=== PATIENT | male | born 1945 | race Caucasian/White ===

== ENCOUNTER → 2023-04-22 13:59 | Outpatient (REF) | payer MEDICARE, OTHER, SELFPAY | LOC: HWRAD 13:59 | PROVIDERS: ATTENDING PHYSICIAN Student in an Organized Health Care Education/Training Program | DX: R79.89 Other specified abnormal findings of blood chemistry (principal) | CPT/HCPCS: 76700 ==

== ENCOUNTER → 2023-04-28 16:11 | Outpatient (REF) | payer MEDICARE, OTHER, SELFPAY | LOC: PAVMRI 16:11 | PROVIDERS: ATTENDING PHYSICIAN Student in an Organized Health Care Education/Training Program | DX: R29.898 Other symptoms and signs involving the musculoskeletal system (principal) | CPT/HCPCS: 72148 ==

== ENCOUNTER 2023-05-05 11:26 | Outpatient (RCR) | payer MEDICARE, OTHER, SELFPAY | END 2023-05-05 23:59 | disposition home or self-care (01) | LOC: RPT 11:26 | PROVIDERS: ATTENDING PHYSICIAN Physician Assistant; FAMILY PHYSICIAN Student in an Organized Health Care Education/Training Program | DX: I89.0 Lymphedema, not elsewhere classified (principal); Z73.6 Limitation of activities due to disability | CPT/HCPCS: 97163; 97535 ==

== ENCOUNTER → 2023-05-14 16:07 | Outpatient (REF) | payer MEDICARE, OTHER, SELFPAY ==
[2023-05-14 16:56] LABS: ALT (SGPT) 214 U/L (0-50); AST (SGOT) 254 U/L (17-59); Albumin 3.1 g/dl (3.5-5.0); Alkaline Phosphatase 81 U/L (38-126); Blood Urea Nitrogen 20 mg/dl (9-20); Calcium 9.1 mg/dl (8.4-10.2); Carbon Dioxide 30 mmol/L (22-30); Chloride 100 mmol/L (98-107); Glucose 99 mg/dl (70-99); Potassium 4.1 mmol/L (3.5-5.1); Sodium 136 mmol/L (135-145); Total Bilirubin 0.8 mg/dl (0.2-1.3); Total Protein 6.3 g/dl (6.3-8.2); eGFR > 60.00
[2023-05-14 17:25] LABS: Hepatitis A IgM Antibody Negative (Negative)
[2023-05-14 17:26] LABS: Hepatitis B Surface Antigen Negative (Negative)
[2023-05-14 17:44] LABS: Hepatitis B Core Ab, Total Negative (Negative); Hepatitis C Antibody Negative (Negative)
[2023-05-18 01:46] LABS: Myeloperoxidase Antibody 1 AU/mL (0-19); Serine Protease-3, IgG 2 AU/mL (0-19)
== END ==
LOC: RAD 16:07
PROVIDERS: ATTENDING PHYSICIAN Orthopaedic Surgery Orthopaedic Surgery of the Spine; FAMILY PHYSICIAN Student in an Organized Health Care Education/Training Program
DX: M54.16 Radiculopathy, lumbar region (principal); R79.89 Other specified abnormal findings of blood chemistry
CPT/HCPCS: 36415; 72131; 80053; 82728; 83516; 86704; 86709; 86803; 87340

== ENCOUNTER 2023-05-25 13:59 | Outpatient (RCR) | payer MEDICARE, OTHER, SELFPAY | END 2023-05-25 23:59 | disposition home or self-care (01) | LOC: RPT 13:59 | PROVIDERS: ATTENDING PHYSICIAN Physician Assistant; FAMILY PHYSICIAN Student in an Organized Health Care Education/Training Program | DX: I89.0 Lymphedema, not elsewhere classified (principal); Z73.6 Limitation of activities due to disability; R26.2 Difficulty in walking, not elsewhere classified | CPT/HCPCS: 97140; 97535 ==

== ENCOUNTER → 2023-05-27 18:11 | Outpatient (REF) | payer MEDICARE, OTHER, SELFPAY | LOC: MRI 18:11 | PROVIDERS: ATTENDING PHYSICIAN Student in an Organized Health Care Education/Training Program | DX: K80.50 Calculus of bile duct without cholangitis or cholecystitis without obstruction (principal) | CPT/HCPCS: 74183; A9575 ==

== ENCOUNTER 2023-06-11 13:51 | Outpatient (RCR) | payer MEDICARE, OTHER, SELFPAY | END 2023-06-11 23:59 | disposition home or self-care (01) | LOC: RPT 13:51 | PROVIDERS: ATTENDING PHYSICIAN Student in an Organized Health Care Education/Training Program | DX: R29.898 Other symptoms and signs involving the musculoskeletal system (principal); E63.1 Imbalance of constituents of food intake; Z73.6 Limitation of activities due to disability; M54.50 Low back pain, unspecified; M62.81 Muscle weakness (generalized); I89.0 Lymphedema, not elsewhere classified | CPT/HCPCS: 97116; 97162 ==

== ENCOUNTER 2023-06-30 13:09 | Outpatient (RCR) | payer MEDICARE, OTHER, SELFPAY | END 2023-07-06 12:19 | disposition home or self-care (01) | LOC: RPT 13:09 | PROVIDERS: ATTENDING PHYSICIAN Student in an Organized Health Care Education/Training Program | DX: R29.898 Other symptoms and signs involving the musculoskeletal system (principal); E63.1 Imbalance of constituents of food intake; Z73.6 Limitation of activities due to disability; M54.50 Low back pain, unspecified; I89.0 Lymphedema, not elsewhere classified; R26.89 Other abnormalities of gait and mobility; Z91.81 History of falling | CPT/HCPCS: 97110 ==

== ENCOUNTER → 2023-06-30 16:29 | Outpatient (REF) | payer MEDICARE, OTHER, SELFPAY | LOC: MRI 16:29 | PROVIDERS: ATTENDING PHYSICIAN Student in an Organized Health Care Education/Training Program | DX: I89.0 Lymphedema, not elsewhere classified (principal) | CPT/HCPCS: 72197; A9575 ==

== ENCOUNTER 2023-07-01 18:03 | Inpatient (IN) | payer MEDICARE, OTHER, SELFPAY ==
[2023-07-01 13:16] VITALS: BP 149/89
[2023-07-01 16:40] VITALS: BP 164/82
[2023-07-01 16:49] LABS: % Basophils 0.6 % (0-2); % Eosinophils 1.5 % (0-6); % Immature Granulocytes 0.3 % (0-0.5); % Lymphocytes 20.3 % (20.5-51.1); % Monocytes 7.6 % (1.7-9.3); % Neutrophils 69.7 % (42.2-75.2); Absolute Basophils 0.1 10^3/uL (0-0.2); Absolute Eosinophils 0.2 10^3/uL (0-0.7); Absolute Monocytes 0.7 10^3/uL (0.1-0.6); Absolute Neutrophils 6.8 10^3/uL (1.4-6.5); Hematocrit 42.5 % (39.0-52.0); Hemoglobin 14.3 g/dL (13.0-18.0); Mean Corp Hgb Conc. 33.6 g/dL (33.0-37.0); Mean Corpuscular Hgb 33.3 pg (27.0-31.0); Mean Corpuscular Volume 98.8 fL (80.0-94.0); Mean Platelet Volume 9.8 fL (7.4-10.4); Nucleated Red Blood Cells % 0 % (-); Platelet Count 245 10^3/uL (130-400); Red Cell Dist. Width 14.5 % (11.5-14.5); White Blood Cell Count 9.7 10^3/uL (4.8-10.8)
[2023-07-01 16:58] LABS: INR 1.08
[2023-07-01 16:59] LABS: APTT 29.1 Sec (23.4-35.0)
[2023-07-01 17:04] LABS: ALT (SGPT) 194 U/L (0-50); AST (SGOT) 303 U/L (17-59); Albumin 3.5 g/dl (3.5-5.0); Alkaline Phosphatase 97 U/L (38-126); Blood Urea Nitrogen 20 mg/dl (9-20); Calcium 9.2 mg/dl (8.4-10.2); Carbon Dioxide 27 mmol/L (22-30); Chloride 98 mmol/L (98-107); Glucose 125 mg/dl (70-99); Potassium 4.3 mmol/L (3.5-5.1); Sodium 133 mmol/L (135-145); Total Bilirubin 0.8 mg/dl (0.2-1.3); Total Protein 6.3 g/dl (6.3-8.2); eGFR > 60.00
--- NOTE | 2023-07-01 17:09 | ED.GENMED ---
History of Present Illness
General
Chief Complaint: Musculo-Skeletal Complaint
Source: patient, records and spouse
Exam Limitations: none
Time Seen by Provider: 07/01/23 16:05
Nursing documentation reviewed up to this point in time: agreed with
Travel History
Have you had any contact with someone who has COVID-19?: No
Do you have any symptoms of coronavirus? Fever > 100 degrees, chills, cough, shortness of breath, sore throat, loss of taste or smell, muscle aches, or headache?: No
History of Present Illness
History of Present Illness:
77-year-old male with past medical history of hypertension, hyperlipidemia, CAD, CKD who presents to the emergency room accompanied by his sent in after outpatient MRI showed femur fracture. Patient has been reportedly undergoing outpatient
workup for left leg swelling over the past 2 to 3 months. Workup has included vascular ultrasounds of the IVC and left lower extremity to rule out DVT�these were performed in March shortly after onset. He has been using conservative treatment
such as compression stockings and elevation without significant improvement in the swelling and ultimately was referred for a pelvic MRI to further workup this left leg swelling. MRI was done yesterday and patient received a call today that it was
positive for a left hip fracture and was referred to the emergency room for orthopedic consultation by his primary doctor. He has had some mild pain in the low back and slightly in left hip but it sounds like this is more of a chronic issue. He
denies any specific fall onto his left hip but says that he has had numerous mechanical falls over the past 6 months�mostly while doing chores including carrying tools up the steps, working on the roof, doing yard work. He denies being on any blood
thinners aside from a baby aspirin. Last meal was about an hour prior to arrival.
Past History
Past History
ED Past Medical History: GERD, HTN and Hypercholesterolemia
ED Past Surgical History: Other (Hernia, cataract surgery)
Social History
Tobacco: Non-smoker
Alcohol: None
Drug: None
Personal:
Living: with family
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
Family History
Family History: Early CAD
Review of Systems
Review of Systems
All Other Systems: ROS reviewed and negative except as documented in HPI and ROS
Constitutional: Denies fever or chills
Respiratory: Denies cough or trouble breathing
Cardiac: Denies chest pain or palpitations
ABD/GI: Denies abdominal pain, nausea or vomiting
: Denies flank pain
Musculoskeletal: Reports joint pain (Left hip pain), edema and back pain; Denies neck pain
Neurological: Denies headache, weakness or numbness
Phy Exam
Physical Exam
Physical Exam:
General: Awake, alert, oriented x3; no acute distress
Head: Normocephalic, atraumatic
Eyes: Conjunctiva normal, EOMI
Throat: Airway intact, handling secretions
Neck: Trachea midline, supple without meningismus
Lungs: Breathing comfortably no distress
Heart: Regular rate
Abd: Soft, non distended, nontender
Neuro: Cranial nerves grossly intact, speech fluid
Skin: no rash
Extremities: Patient has significant +3 edema in the entire left lower extremity from inguinal crease down to the left foot; he has some pain with range of motion of the left hip including internal and external rotation; he has faint but palpable
left DP pulse; only trace edema in the right lower extremity, rest of extremities are atraumatic, warm and well-perfused
Scores
Heart Failure Risk
Heart Failure Risk Score: Not Applicable
Heart Score for Chest Pain Patients
STEMI patient?: Not applicable
Withdrawal Assessment of Alcohol
Withdrawal Assessment Completed?: Not applicable
Course
Orders/Labs/Results
Orders:
Orders
07/01/23 16:07
ORTHOPEDIC CONSULT Urgent
Consulting Provider: Myriam Bourgeois I.
Was physician already notified: Yes
07/01/23 16:09
Electrocardiogram (*1) Urgent
Reason for Study: PreOp
EKG- Treatment ONCE
07/01/23 16:31
Type+Screen Urgent
Complete Blood Count/With Diff Urgent
Comprehensive Metabolic Panel Urgent
PTT Urgent
Prothrombin Time Urgent
Abnormal Lab Results
07/01/23
16:31
RBC 4.30 L 10^6/uL
(4.70-6.10)
MCV 98.8 H fL
(80.0-94.0)
MCH 33.3 H pg
(27.0-31.0)
Absolute Neuts (auto) 6.8 H 10^3/uL
(1.4-6.5)
Absolute Monos (auto) 0.7 H 10^3/uL
(0.1-0.6)
Lymphocytes % 20.3 L %
(20.5-51.1)
Sodium 133 L mmol/L
(135-145)
Glucose 125 H mg/dl
(70-99)
AST 303 H U/L
(17-59)
ALT 194 H U/L
(0-50)
07/01/23 16:31
07/01/23 16:31
Vital Signs
Initial and Last Documented VS:
Initial Vital Signs
Temp Pulse Resp BP Pulse Ox
36.6 C 76 16 149/89 98
07/01/23 13:16 07/01/23 13:16 07/01/23 13:16 07/01/23 13:16 07/01/23 13:16
Last Documented Vital Signs
Temp Pulse Resp BP Pulse Ox
36.6 C 70 19 164/82 98
07/01/23 13:16 07/01/23 16:40 07/01/23 16:40 07/01/23 16:40 07/01/23 16:40
MDM/Problems Addressed
Differential Diagnosis Includes:
Hip fracture
MDM/Problems Addressed:
77-year-old male presents for evaluation after being found to have left hip fracture on outpatient MRI done as part of workup for leg pain and swelling on the left. He has had multiple falls over the past 6 months but cannot recall specific episode
during which she injured his left hip or leg. Mildly hypertensive but otherwise normal vitals. Exam as above. Plan to check basic screening labs, coags, type and screen. Check screening EKG. Case discussed with orthopedics for consultation.
Will plan to admit to hospitalist for further management pending initial ED assessment.
Labs reviewed: CBC unremarkable, CMP no clinically significant abnormalities�elevated transaminases has been a chronic issue recently. Case discussed with hospitalist for admission.
*Radiology
Radiology exam reviewed: radiology read reviewed (Reviewed radiology report from outpatient MRI from 06/30/2023)
*Pulse Oximetry
Patient hypoxic: no
*Critical Care Note
Total Time (30-74mins, 75-104mins- exclusive of procedures): Not Applicable
Data Reviewed
Source: patient, records and spouse
Patient Management
Discussion with other providers: Hospitalist (Discussed with hospitalist) and Repair Servicer (Discussed with orthopedics)
Escalation/DeEscalation of care consider admission/obs:
Admission indicated
ED Attending Note
-
Portions of this chart may have been created with voice recognition software.� Occasional wrong word or��sound alike� substitutions may have occurred due to the inherent limitations of voice recognition software.
Discharge Plan
Departure
Patient Disposition: Admit
Date of Disposition: 07/01/23
Time of Disposition: 17:19
Admit to doctor: Gonzalo
Presentation/result/management discussed w/ accepting MD/DO: Hospitalist
Discharge Problem:
Closed fracture of left hip, Left leg swelling
Prescriptions:
No Action
aspirin 81 MG tablet,chewable
81 mg PO DAILY Qty: 30 0RF
amlodipine [Norvasc] 5 mg Tablet
5 mg PO HS
escitalopram oxalate [Lexapro] 10 mg Tablet
10 mg PO HS
rosuvastatin [Crestor] 5 mg Tablet
5 mg PO DAILY
pantoprazole 40 MG tablet,delayed release (DR/EC)
40 mg PO DAILY
Referrals:
Geneva James MD [Family Provider] -
Interventions
Interventions:
ED- Fall Risk Assessment Last Done: 07/01/23 16:40
*ED COVID-19 Vaccine History Last Done: 07/01/23 13:16
ED-Musculoskeletal Assessment Last Done: 07/01/23 16:38
Discharge Date and Time
Print Language: ALBANIAN
--- NOTE | 2023-07-01 17:58 | HPS.HSE ---
Family Physician
-
Family Physician: Geneva James MD
Chief Complaint
-
Left leg swelling for months
History of Present Illness
77-year-old male with past medical history of hypertension, hyperlipidemia, CAD, CKD who presents to the emergency room accompanied by his sent in after outpatient MRI showed femur fracture. Patient has been reportedly undergoing outpatient
workup for left leg swelling over the past 2 to 3 months. Workup has included vascular ultrasounds of the IVC and left lower extremity to rule out DVT�these were performed in March shortly after onset. He has been using conservative treatment
such as compression stockings and elevation without significant improvement in the swelling and ultimately was referred for a pelvic MRI to further workup this left leg swelling.
MRI was done yesterday and patient received a call today that it was positive for a left hip fracture and was referred to the emergency room for orthopedic consultation by his primary doctor. He has had some mild pain in the low back and slightly
in left hip but it sounds like this is more of a chronic issue. He denies any specific fall onto his left hip but says that he has had numerous mechanical falls over the past 6 months�mostly while doing chores including carrying tools up the steps,
working on the roof, doing yard work. He denies being on any blood thinners aside from a baby aspirin. Last meal was about an hour prior to arrival.
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
eventually require apparently an MRCP in early July by Dr. Ybarra he has been largely asymptomatic from that aspect. Multiple x-rays preceding the MRI were all negative for fracture. A venous Doppler was also negative for thrombus.
Medical History
Past Medical History
Past Medical History: Reports CVA, HTN and Hypercholesterolemia
Past Surgical History: Reports Other (Hernia surgery)
Additional Past Surgical History:
Hernia surgery
Social History
Tobacco: Non-smoker
Alcohol: None
Drug: None
Personal:
Living: With Family
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
Family History
Family History: Early CAD
Allergies / Home Medications
Allergies reflects when Allergies were last updated in [facility].
Home Medications with original date entered in [facility]
Allergy/Medication List:
Allergies
Allergy/AdvReac Type Severity Reaction Status Date / Time
No Known Allergies Allergy Verified 02/22/23 07:02
Home Medications
aspirin 81 mg chewable tablet 81 mg PO DAILY ##30 06/02/17
amlodipine 5 mg tablet (Norvasc) 5 mg PO HS 09/29/22
escitalopram oxalate 10 mg tablet (Lexapro) 10 mg PO HS 09/29/22
rosuvastatin 5 mg tablet (Crestor) 5 mg PO DAILY 09/29/22
pantoprazole 40 mg tablet,delayed release 40 mg PO DAILY 07/01/23
Review of Systems
-
EENT: Reports See HPI
Respiratory: Reports No Symptoms
Cardiac: Reports See HPI
Abdomen/GI: Reports No Symptoms and See HPI
Musculoskeletal: Reports Edema (Especially left lower extremity)
Endocrine: Reports See HPI
Hematologic/Lymphatic: Reports See HPI
Psych: Reports See HPI
Physical Exam
Vital Signs
Vital Signs
Temp Pulse Resp BP Pulse Ox
97.9 F 70 19 164/82 98
07/01/23 13:16 07/01/23 16:40 07/01/23 16:40 07/01/23 16:40 07/01/23 16:40
Physical Exam
General: Well Developed
HEENT: NormoCephalic
Respiratory: Clear
Cardiac: S1/S2 and Regular Rhythm
GI: Soft, Non Tender and Non Distended
Musculoskeletal: Edema, Left Lower Extremity (3-4+ as compared to the right with some slight erythema over the pretibial)
Neuro: Awake, Alert, Oriented, AO x 3 and No Motor Deficits
Laboratory Results
-
07/01/23 16:31
07/01/23 16:
Laboratory Results
PT 14.0 Sec (11.4-14.6) 07/01/23 16:31
INR 1.08 07/01/23 16:
APTT 29.1 Sec (23.4-35.0) 07/01/23 16:31
Total Bilirubin 0.8 mg/dl (0.2-1.3) 07/01/23 16:
AST 303 U/L (17-59) H 07/01/23 16:
ALT 194 U/L (0-50) H 07/01/23 16:31
Alkaline Phosphatase 97 U/L (38-126) 07/01/23 16:
Data Reviewed
-
Critical Care Time (in minutes): 67
Diagnostic Radiology: Discussed with Physician
MRI: Report Reviewed by me and Discussed with Physician
Impression/Plan
-
IMPRESSION:
This is a 77-year-old male who had ongoing left lower extremity edema that was unexplained heretofore until an MRI of the pelvis was done noting a intertrochanteric fracture of the left hip and he was called in for admission he has had an extensive
workup in the last 2 to 3 months in relation to unexplained left lower extremity edema including MRIs and CT scans abdominal ultrasounds and assessments for DVT all of which essentially proved negative except for an incidental finding of
choledocholelithiasis on an MRI of the abdomen.
MRI Pelvis:
Moderate diffuse subcutaneous edema about the left thigh/groin and left pelvis.
Nondisplaced intertrochanteric fracture of the proximal left femur.
MRI of abdomen
1. CHOLEDOCHOLITHIASIS in the distal common bile duct.
2. Mild biliary dilatation.
3. CHOLELITHIASIS.
4. Moderate diffuse pancreatic atrophy.
5. Small pancreatic cysts measuring up to 6.8 mm in size.
6. Moderate chronic bilateral renal disease.
7. Small hiatal hernia.
8. Mild cardiomegaly.
9. Severe multilevel discogenic degenerative disease in the lumbar spine.
# Left hip intertrochanteric fracture
-Admit to general medical floor
-Will be made n.p.o. after midnight
-Orthopedic consultation in place
-Based on a revised cardiac risk index he grades out at low risk 0.9% chance of major cardiac event on proposed surgery
# Incidental finding of choledocholelithiasis seen on recent workup for his edema
-Will need eventual ERCP early next month
-Explains transaminitis
-Relatively asymptomatic
# Left leg edema
-Present for months and presume in relation to his fracture as no other etiology found
-Workup has included Doppler of IVC/venous Doppler lower extremity without signs of thrombosis
-MRI of the abdomen pelvis
-All workup back in September 2022 with abdomen/pelvic CT/showed no evidence of any pelvic or abdominal thromboses
-History of May-Thurner syndrome?
# Essential hypertension by history
-Continue amlodipine
-May also be contributing to some of his lower extremity edema
# Hyperlipidemia
-Continue on statin
# Prior history of CVA
-Continue on aspirin low-dose
-Postop DVT prophylaxis as per orthopedic service otherwise
# Gastroesophageal reflux disease
-Continue PPI
DVT prophylaxis pharmacologic will be held till postop status and as per orthopedics/venous pumps otherwise
Full CODE STATUS acknowledged by spouse at bedside
[2023-07-01] MEDS: LEXAPRO 10 MG PO (21:19)
[2023-07-01] MEDS: NORVASC 5 MG PO (21:20)
[2023-07-01] MEDS: NSS 1000 IV (21:21)
[2023-07-02 04:01] VITALS: BP 137/64
[2023-07-02 04:05] LABS: Hematocrit 36.3 % (39.0-52.0); Hemoglobin 12.8 g/dL (13.0-18.0); Mean Corp Hgb Conc. 35.3 g/dL (33.0-37.0); Mean Corpuscular Volume 96.5 fL (80.0-94.0); Mean Platelet Volume 9.7 fL (7.4-10.4); Platelet Count 216 10^3/uL (130-400); Red Blood Cell Count 3.76 10^6/uL (4.70-6.10); Red Cell Dist. Width 14.3 % (11.5-14.5); White Blood Cell Count 8.6 10^3/uL (4.8-10.8)
[2023-07-02 04:28] LABS: ALT (SGPT) 185 U/L (0-50); AST (SGOT) 207 U/L (17-59); Albumin 2.6 g/dl (3.5-5.0); Alkaline Phosphatase 81 U/L (38-126); Blood Urea Nitrogen 17 mg/dl (9-20); Calcium 8.6 mg/dl (8.4-10.2); Carbon Dioxide 30 mmol/L (22-30); Chloride 106 mmol/L (98-107); Glucose 96 mg/dl (70-99); Sodium 135 mmol/L (135-145); Total Bilirubin 0.5 mg/dl (0.2-1.3); Total Protein 5.2 g/dl (6.3-8.2); eGFR > 60.00
[2023-07-02 06:59] VITALS: BP 143/80
--- NOTE | 2023-07-02 07:04 | W.PN.HOSP.TC ---
Today's Communication/Plan
-
Awaiting Ortho evaluation for intervention
Keeping NPO
Mechanical DVT prophylaxis only until intervention
DVT prophylaxis defer to orthopedics.
Minimal pain management required at this point
Assessment / Plan
Assessment / Plan
77-year-old male with past medical history of hypertension, hyperlipidemia, CAD, CKD who presents to the emergency room accompanied by his sent in after outpatient MRI showed femur fracture. Patient has been reportedly undergoing outpatient
workup for left leg swelling over the past 2 to 3 months. Workup has included vascular ultrasounds of the IVC and left lower extremity to rule out DVT�these were performed in March shortly after onset. He has been using conservative treatment
such as compression stockings and elevation without significant improvement in the swelling and ultimately was referred for a pelvic MRI to further workup this left leg swelling.
MRI was done yesterday and patient received a call today that it was positive for a left hip fracture and was referred to the emergency room for orthopedic consultation by his primary doctor. He has had some mild pain in the low back and slightly
in left hip but it sounds like this is more of a chronic issue. He denies any specific fall onto his left hip but says that he has had numerous mechanical falls over the past 6 months�mostly while doing chores including carrying tools up the steps,
working on the roof, doing yard work. He denies being on any blood thinners aside from a baby aspirin. Last meal was about an hour prior to arrival.
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
eventually require apparently an ERCP in early July by Dr. Ybarra he has been largely asymptomatic from that aspect. Multiple x-rays preceding the MRI were all negative for fracture. A venous Doppler was also negative for thrombus.
# Left hip intertrochanteric fracture
-Admit to general medical floor
-Will be made n.p.o. after midnight
-Orthopedic consultation in place
-Based on a revised cardiac risk index he grades out at low risk 0.9% chance of major cardiac event on proposed surgery
# Incidental finding of choledocholelithiasis seen on recent workup for his edema
-Will need eventual ERCP early next month
-Explains transaminitis
-Relatively asymptomatic
# Left leg edema
-Present for months and presume in relation to his fracture as no other etiology found
-Workup has included Doppler of IVC/venous Doppler lower extremity without signs of thrombosis
-MRI of the abdomen pelvis
-All workup back in September 2022 with abdomen/pelvic CT/showed no evidence of any pelvic or abdominal thromboses
-History of May-Thurner syndrome?/Patient himself is unaware of any consideration for that diagnosis and unclear if this ever been made and no other criteria to fit
# Essential hypertension by history
-Continue amlodipine
-May also be contributing to some of his lower extremity edema
# Hyperlipidemia
-Continue on statin
# Prior history of CVA
-Continue on aspirin low-dose
-Postop DVT prophylaxis as per orthopedic service otherwise
# Gastroesophageal reflux disease
-Continue PPI
DVT prophylaxis pharmacologic will be held till postop status and as per orthopedics/venous pumps otherwise
Full CODE STATUS acknowledged by spouse at bedside
Anticipated Discharge: 24 - 48 hours
Subjective/Interval History
-
Date of Service: July 02, 2023
Had restless night but not much pain
Objective Data
-
Labs:
Laboratory Results
07/02/23
03:52
WBC 8.6
Hgb 12.8 L
Hct 36.3 L
Plt Count 216
Sodium 135
Potassium 4.0
Chloride 106
Carbon Dioxide 30
BUN 17
Creatinine 0.9
Glucose 96
Calcium 8.6
Total Bilirubin 0.5
AST 207 H
ALT 185 H
Alkaline Phosphatase 81
Vital Signs:
Vital Signs
Temp Pulse Resp BP Pulse Ox
98.0 F 70 18 143/80 96
07/02/23 06:59 07/02/23 06:59 07/02/23 06:59 07/02/23 06:59 07/02/23 06:59
I&O
07/01/23 07/02/23 07/03/23
06:59 06:59 06:59
Intake Total 720 / 720
Output Total 400 / 400
Balance 320 / 320
Review of Systems
-
History Source: Patient
Constitutional: Reports No Symptoms
Respiratory: Reports No Symptoms
Cardiac: Reports No Symptoms
Abdomen/GI: Reports No Symptoms
Musculoskeletal: Reports Edema
Physical Exam
-
General: Well Developed
HEENT: Normocephalic
Respiratory: Clear to Auscultation
Cardiac: Regular Rhythm
GI: Soft and Nontender
Musculoskeletal: Edema, Left Lower Extrem (Marked present for months not much pain referred to groin)
Neuro: Awake, Alert, Oriented and AO x 3
--- NOTE | 2023-07-02 08:29 | W.PN.UPDATE ---
Update Note
Progress Note Update
Full H&P to follow
77-year-old male with subacute hip pain with ambulation with outpatient MRI showing occult intertrochanteric femur fracture referred to the emergency room by his primary care physician.
Physical examination: Skin about the left hip is intact with no erythema edema or ecchymosis. Minimal discomfort with gentle hip range of motion with some report of lateral discomfort. Patient reports pain primarily with ambulation
Imaging: X-rays taken of the left femur show minimal arthrosis of the left femoral acetabular joint. No acute osseous abnormalities
MRI: MRI of the left hip shows on T1 sequencing occult complete intertrochanteric femur fracture
77-year-old male with subacute to chronic pain about the left hip and worsened edema from baseline with advanced imaging showing complete occult intertrochanteric femur fracture
The condition/injury and respective operative and non-operative interventions were reviewed with the patient to include the risks, benefits, rehabilitation, and prognosis for each. We discussed consideration of nonoperative treatment for at least 6
weeks of nonweightbearing versus operative intervention of left hip cephalomedullary nail fixation. The treatment/operative technique, follow-up, rehabilitation, and prognosis were reviewed with the patient. Surgical risks were discussed which
include but not limited to infection, blood loss, CRPS, possible need for further surgeries, damage to local structures, and possible loss of life or limb. After thorough counseling and answering all questions, the patient wished to proceed with
operative intervention of left hip cephalomedullary nail fixation with Dr. Bourgeois scheduled for 03 July 2023. The patient verified understanding of the treatment plan and all questions were answered to satisfaction.
Consent obtained and given to our front desk clerk.
Nonweightbearing to left lower extremity
May have diet today, n.p.o. at midnight 4 OR 03 July 2023.
Patient's contact Goldie Sahu, spouse,
[2023-07-02] MEDS: LOW STRENGTH ASPIRIN 81 MG PO (09:21)
[2023-07-02] MEDS: PROTONIX 40 MG PO (09:21)
[2023-07-02] MEDS: CRESTOR 5 MG PO (09:22)
[2023-07-02 09:31] VITALS: BMI 25.1
--- NOTE | 2023-07-02 11:51 | PTCARENOTE ---
Pt with planned surgery tomorrow. Will be NPO at midnight. Originally ordered Regular diet. Changed to Gluten Free diet due to Gluten allergy. Left lower extremity +3 pitting edema. Pt denying pain right lower extremity +1 pitting edema. Pt voiding
angela into urinal. New bloody appearance at meatus site. Dr. Kim notified.
[2023-07-02 12:45] VITALS: BP 140/70
[2023-07-02 13:04] VITALS: BP 146/65
--- NOTE | 2023-07-02 13:54 | W.PN.UPDATE ---
Update Note
Progress Note Update
pt seen and examined with at bedside
agree with ortho PA note
LLE: moderate to severe edema. negative log roll. Pain with flexion and internal rotation
MRI L hip/pelvis shows nondisplaced intertrocanteric hip fx
Plan: Nonop and operative approaches discussed. Pt agrees with ORIF with gamma nail L hip. We will proceed with surgery tomorrow at 8 am if medically optimized. Risks and benefits fully explained. All questions were answered.
[2023-07-02 14:30] VITALS: BP 155/75
[2023-07-02] MEDS: NSS 1000 IV (14:51)
--- NOTE | 2023-07-02 16:00 | PTCARENOTE ---
pt admitted to room 2102 from the ED at 1300. pt arrived via bed. pt oriented to room, call bed and plan of care with verbalized understanding. pt denies pain or discomfort. assessment as documented. voiding in urinal-urine is blood tinged.
will observe.
--- NOTE | 2023-07-02 16:44 | CON.ORTHO ---
Consultation
-
Date/Time Consultation Requested: 07/01/2023 1607
Date/Time Consultation Performed: 07/02/2023 0800
Requesting Provider: Dr. Tyler Santana
Performing Provider: KIKI Mohan, Dr. Myriam Bourgeois
Reason for Consultation: Left hip fracture
Consultation - Orthopedics
History
77-year-old male presenting to [facility] emergency room for chronic pain and swelling of the left lower extremity ongoing several months. He has been undergoing outpatient workup with his primary care physician who ordered an MRI and include the
left hip which was significant for an occult intertrochanteric femur fracture. Patient was referred to the emergency room for orthopedic evaluation. He does report several falls that may have been relative to the onset of symptoms but is unsure of
any specific injury. He reports pain is primarily with weight-based activity and without paresthesias with pain deep within the groin area. He reports most of his falls have been mechanical in nature and denies any syncopal episodes
Allergies / Home Medications
ED Past Medical History: GERD, HTN, HLP, CKD
ED Past Surgical History: Hernia, cataract surgery
Social History
Tobacco: Non-smoker
Alcohol: None
Drug: None
Personal:
Living: with family
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 Independent activities of daily living without assistive devices, Community ambulator
Family History
Family History: Early CAD
Allergy/AdvReac Type Severity Reaction Status Date / Time
gluten Allergy Unknown Verified 07/01/23 21:32
�Medication �Instructions �Recorded
aspirin 81 mg chewable tablet 81 mg PO DAILY ##30 06/02/17
amlodipine 5 mg tablet (Norvasc) 5 mg PO HS Blood Pressure 09/29/22
escitalopram oxalate 10 mg tablet 10 mg PO HS Mental Health 09/29/22
(Lexapro)
rosuvastatin 5 mg tablet (Crestor) 5 mg PO DAILY High Cholesterol 09/29/22
pantoprazole 40 mg tablet,delayed 40 mg PO DAILY Gastrointestinal 07/01/23
release Issue
Vital Signs / Lab Results
Temp Pulse Resp BP Pulse Ox
98.0 F 74 16 155/75 96
07/02/23 14:30 07/02/23 14:30 07/02/23 14:30 07/02/23 14:30 07/02/23 14:30
Physical examination: Skin about the left hip is intact with no erythema edema or ecchymosis. Minimal discomfort with gentle hip range of motion with some report of lateral discomfort. Patient reports pain primarily with ambulation
Imaging: X-rays taken of the left femur show minimal arthrosis of the left femoral acetabular joint. No acute osseous abnormalities
MRI: MRI of the left hip shows on T1 sequencing occult complete intertrochanteric femur fracture
07/02/23 03:52
07/02/23 03:52
Assessment / Plan
77-year-old male with subacute to chronic pain about the left hip and worsened edema from baseline with advanced imaging showing complete occult intertrochanteric femur fracture
The condition/injury and respective operative and non-operative interventions were reviewed with the patient to include the risks, benefits, rehabilitation, and prognosis for each. We discussed consideration of nonoperative treatment for at least 6
weeks of nonweightbearing versus operative intervention of left hip cephalomedullary nail fixation. The treatment/operative technique, follow-up, rehabilitation, and prognosis were reviewed with the patient. Surgical risks were discussed which
include but not limited to infection, blood loss, CRPS, possible need for further surgeries, damage to local structures, and possible loss of life or limb. After thorough counseling and answering all questions, the patient wished to proceed with
operative intervention of left hip cephalomedullary nail fixation with Dr. Bourgeois scheduled for 03 July 2023. The patient verified understanding of the treatment plan and all questions were answered to satisfaction.
Nonweightbearing to left lower extremity
N.p.o. at midnight, plan for OR tomorrow for left hip cephalomedullary nail fixation with Dr. Bourgeois
Antibiotics on-call to the operating room
Consent Signed, given to operating room front counter attendant
[2023-07-02] MEDS: NORVASC 5 MG PO (22:09)
[2023-07-02] MEDS: LEXAPRO 10 MG PO (22:09)
[2023-07-03] VITALS (11 sets, daily range): BP systolic 130–164; BP diastolic 63–79; PULSE 72; O2SAT 96
[2023-07-03 06:04] LABS: Hematocrit 35.7 % (39.0-52.0); Hemoglobin 12.5 g/dL (13.0-18.0); Mean Corpuscular Hgb 33.3 pg (27.0-31.0); Mean Corpuscular Volume 95.2 fL (80.0-94.0); Mean Platelet Volume 9.7 fL (7.4-10.4); Platelet Count 218 10^3/uL (130-400); Red Blood Cell Count 3.75 10^6/uL (4.70-6.10); Red Cell Dist. Width 14.6 % (11.5-14.5); White Blood Cell Count 9.1 10^3/uL (4.8-10.8)
[2023-07-03 06:30] LABS: ALT (SGPT) 157 U/L (0-50); AST (SGOT) 177 U/L (17-59); Albumin 2.7 g/dl (3.5-5.0); Alkaline Phosphatase 82 U/L (38-126); Blood Urea Nitrogen 16 mg/dl (9-20); Calcium 8.5 mg/dl (8.4-10.2); Carbon Dioxide 29 mmol/L (22-30); Chloride 107 mmol/L (98-107); Estimated Creatinine Clearance 85 ml/min; Glucose 103 mg/dl (70-99); Potassium 3.9 mmol/L (3.5-5.1); Sodium 135 mmol/L (135-145); Total Bilirubin 0.4 mg/dl (0.2-1.3); Total Protein 5.3 g/dl (6.3-8.2); eGFR > 60.00
--- NOTE | 2023-07-03 07:24 | W.PN.UPDATE ---
Update Note
Progress Note Update
77M planned for left hip cephalomedullary nail with Dr. Bourgeois this morning.
-NPO
-Pre-op abx on-call to OR
-NWB to LLE
-Will update orders postop
--- NOTE | 2023-07-03 07:51 | W.PN.HOSP.TC ---
Today's Communication/Plan
-
For open reduction internal fixation of his left hip fracture today/no contraindications and low risk based on revised cardiac index
Continue to monitor CBC postop
Consideration next week if still here for further workup of his left lower extremity edema with the infectious disease service.
Assessment / Plan
Assessment / Plan
77-year-old male with past medical history of hypertension, hyperlipidemia, CAD, CKD who presents to the emergency room accompanied by his sent in after outpatient MRI showed femur fracture. Patient has been reportedly undergoing outpatient
workup for left leg swelling over the past 2 to 3 months. Workup has included vascular ultrasounds of the IVC and left lower extremity to rule out DVT�these were performed in March shortly after onset. He has been using conservative treatment
such as compression stockings and elevation without significant improvement in the swelling and ultimately was referred for a pelvic MRI to further workup this left leg swelling.
MRI was done yesterday and patient received a call today that it was positive for a left hip fracture and was referred to the emergency room for orthopedic consultation by his primary doctor. He has had some mild pain in the low back and slightly
in left hip but it sounds like this is more of a chronic issue. He denies any specific fall onto his left hip but says that he has had numerous mechanical falls over the past 6 months�mostly while doing chores including carrying tools up the steps,
working on the roof, doing yard work. He denies being on any blood thinners aside from a baby aspirin. Last meal was about an hour prior to arrival.
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
eventually require apparently an ERCP in early July by Dr. Ybarra he has been largely asymptomatic from that aspect. Multiple x-rays preceding the MRI were all negative for fracture. A venous Doppler was also negative for thrombus.
# Left hip intertrochanteric fracture
-Admit to general medical floor
-Will be made n.p.o. after midnight
-Orthopedic consultation in place
-Based on a revised cardiac risk index he grades out at low risk 0.9% chance of major cardiac event on proposed surgery
# Incidental finding of choledocholelithiasis seen on recent workup for his edema
-Will need eventual ERCP early next month
-Explains transaminitis
-Relatively asymptomatic
# Left leg edema
-Present for months and presume in relation to his fracture as no other etiology found
-Workup has included Doppler of IVC/venous Doppler lower extremity without signs of thrombosis
-MRI of the abdomen pelvis
-All workup back in September 2022 with abdomen/pelvic CT/showed no evidence of any pelvic or abdominal thromboses
-History of May-Thurner syndrome?/Patient himself is unaware of any consideration for that diagnosis and unclear if this ever been made and no other criteria to fit
-I discussed the workup thus far with his primary care provider she has also reached out to infectious disease automation consultant Dr. Moon in regards to obscure causes to this patient's ongoing left lower extremity edema which cannot be laid slowly at
this the new finding of a hip fracture which may be just incidental/there have been no obvious infectious process would defer that until after his operative management there is no significant leukocytosis there is no eosinophilia I would suggest
something like filiriasis or significant travel
# Essential hypertension by history
-Continue amlodipine
-May also be contributing to some of his lower extremity edema
# Hyperlipidemia
-Continue on statin
# Prior history of CVA
-Continue on aspirin low-dose
-Postop DVT prophylaxis as per orthopedic service otherwise
# Gastroesophageal reflux disease
-Continue PPI
DVT prophylaxis pharmacologic will be held till postop status and as per orthopedics/venous pumps otherwise
Full CODE STATUS acknowledged by spouse at bedside
Anticipated Discharge: 24 - 48 hours
Subjective/Interval History
-
Date of Service: July 03, 2023
Restful night no distress minimal if any pain for the left groin and/or leg
Objective Data
-
Labs:
Laboratory Results
07/03/23 07/03/23
05:47 05:48
WBC 9.1
Hgb 12.5 L
Hct 35.7 L
Plt Count 218
Sodium 135
Potassium 3.9
Chloride 107
Carbon Dioxide 29
BUN 16
Creatinine 0.8
Glucose 103 H
Calcium 8.5
Total Bilirubin 0.4
AST 177 H
ALT 157 H
Alkaline Phosphatase 82
Vital Signs:
Vital Signs
Temp Pulse Resp BP Pulse Ox
97.6 F 87 16 164/70 95
07/03/23 00:40 07/03/23 00:40 07/03/23 00:40 07/03/23 00:40 07/03/23 00:40
I&O
07/02/23 07/03/23 07/04/23
06:59 06:59 06:59
Intake Total 720 / 720 1820 / 1820
Output Total 400 / 400 1225 / 1225
Balance 320 / 320 595 / 595
Review of Systems
-
History Source: Patient and Physician (Spoke to his primary care provider yesterday via phone over prospects of further workup of his leg edema)
Constitutional: Reports No Symptoms
Musculoskeletal: Reports Edema (Left lower extremity causes remain obscure)
Physical Exam
-
General: Well Developed
HEENT: Normocephalic
Respiratory: Clear to Auscultation
Cardiac: Regular Rhythm
Musculoskeletal: No Clubbing and Edema, Left Lower Extrem (Marked 3-4+ as compared to right)
Neuro: Awake, Alert and Oriented
Psych: Calm
Data Reviewed
-
CT Scan: Report Reviewed by me (Multiple reports reviewed since workup started last year until now)
MRI: Report Reviewed by me
Labs: Labs Reviewed by me (Hemoglobin 12.5 preoperatively)
[2023-07-03] MEDS: NSS 1000 IV (10:18)
[2023-07-03] MEDS: PROTONIX 40 MG PO (11:03)
[2023-07-03] MEDS: CRESTOR 5 MG PO (11:03)
[2023-07-03] MEDS: LOW STRENGTH ASPIRIN PO (11:08)
--- NOTE | 2023-07-03 15:29 | CM ---
Alert awake oriented patient who lives with his Yesi who lives in a 2 story home with 4 step to enter and bed and bathroom on first floor. He is independent all activities of daily living.He was offered VN he declined need.PT OT ordered
postop. Pt has had out pt PT in past
No VN hx / No SNF history
Ph[facility]acy [facility]
PCP DR Sepulveda
PLAN will need PT OT evals for dc plan.
[2023-07-03] MEDS: ANCEF 5 IV ×2 (15:36→23:43)
[2023-07-03] MEDS: ASPIRIN 325 MG PO (17:39)
[2023-07-03] MEDS: NORVASC 5 MG PO (21:19)
[2023-07-03] MEDS: LEXAPRO 10 MG PO (21:19)
[2023-07-04] MEDS: NSS 1000 IV (01:17)
[2023-07-04 05:57] LABS: Hematocrit 33.6 % (39.0-52.0); Hemoglobin 11.6 g/dL (13.0-18.0); Mean Corp Hgb Conc. 34.5 g/dL (33.0-37.0); Mean Corpuscular Volume 98.5 fL (80.0-94.0); Mean Platelet Volume 9.9 fL (7.4-10.4); Platelet Count 186 10^3/uL (130-400); Red Blood Cell Count 3.41 10^6/uL (4.70-6.10); Red Cell Dist. Width 14.2 % (11.5-14.5)
[2023-07-04 06:32] LABS: Blood Urea Nitrogen 20 mg/dl (9-20); Calcium 8.8 mg/dl (8.4-10.2); Carbon Dioxide 26 mmol/L (22-30); Chloride 105 mmol/L (98-107); Estimated Creatinine Clearance 97 ml/min; Glucose 130 mg/dl (70-99); Potassium 4.6 mmol/L (3.5-5.1); Sodium 133 mmol/L (135-145); eGFR > 60.00
[2023-07-04] MEDS: ASPIRIN 325 MG PO (07:35)
[2023-07-04] MEDS: PROTONIX 40 MG PO (07:35)
[2023-07-04] MEDS: CRESTOR 5 MG PO (07:35)
[2023-07-04 07:49] VITALS: BP 138/74
--- NOTE | 2023-07-04 08:19 | W.PN.HOSP.TC ---
Addendum entered and electronically signed by Carlos Kim MD 07/04/23 18:04:
Venous Doppler of left lower extremity as in previous studies remains negative for DVT.. MRI of the cervical spine showed diffuse multilevel discogenic facet and degenerative changes with subtle degenerative anterolisthesis of C2 and C3 but no
compression deformity with a moderate posterior central broad-based disc protrusion with these changes doubt is contributing to his weakness as cause. Reported by nursing to have some hematuria and a urinalysis today showed does show 4+ blood
keeping in mind the patient had a straight cath for urinary retention. Yesterday could be traumatic will order renal bladder ultrasound otherwise. Have updated patient's spouse with the above. Also informed her of my discussions with patient's PCP
Original Note:
Today's Communication/Plan
-
Can discontinue IV fluids
Will order MRI of the cervical spine
PT/OT assessment
Case management for rehab
Assessment / Plan
Assessment / Plan
77-year-old male with past medical history of hypertension, hyperlipidemia, CAD, CKD who presents to the emergency room accompanied by his sent in after outpatient MRI showed femur fracture. Patient has been reportedly undergoing outpatient
workup for left leg swelling over the past 2 to 3 months. Workup has included vascular ultrasounds of the IVC and left lower extremity to rule out DVT�these were performed in March shortly after onset. He has been using conservative treatment
such as compression stockings and elevation without significant improvement in the swelling and ultimately was referred for a pelvic MRI to further workup this left leg swelling.
MRI was done yesterday and patient received a call today that it was positive for a left hip fracture and was referred to the emergency room for orthopedic consultation by his primary doctor. He has had some mild pain in the low back and slightly
in left hip but it sounds like this is more of a chronic issue. He denies any specific fall onto his left hip but says that he has had numerous mechanical falls over the past 6 months�mostly while doing chores including carrying tools up the steps,
working on the roof, doing yard work. He denies being on any blood thinners aside from a baby aspirin. Last meal was about an hour prior to arrival.
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
eventually require apparently an ERCP in early July by Dr. Ybarra he has been largely asymptomatic from that aspect. Multiple x-rays preceding the MRI were all negative for fracture. A venous Doppler was also negative for thrombus.
# Left hip intertrochanteric fracture/status post cephalomedullary nail fixation July 02
-Admit to general medical floor
-Orthopedic consultation in place/DVT prophylaxis postop with full dose aspirin 325 mg unspecifie
-PT/OT/presumed will need rehab course
# Incidental finding of choledocholelithiasis seen on recent workup for his edema
-Will need eventual ERCP early next month
-Explains transaminitis
-Relatively asymptomatic
#Arm and leg weakness for weeks
-Was to have outpatient MRI of the cervical spine will order here
-
# Left leg edema
-Present for months and presume in relation to his fracture as no other etiology found
-Workup has included Doppler of IVC/venous Doppler lower extremity without signs of thrombosis
-MRI of the abdomen pelvis
-All workup back in September 2022 with abdomen/pelvic CT/showed no evidence of any pelvic or abdominal thromboses
-History of May-Thurner syndrome?/Patient himself is unaware of any consideration for that diagnosis and unclear if this ever been made and no other criteria to fit
-I discussed the workup thus far with his primary care provider she has also reached out to infectious disease database reporting consultant Dr. Moon in regards to obscure causes to this patient's ongoing left lower extremity edema which cannot be laid slowly at
this the new finding of a hip fracture which may be just incidental/there have been no obvious infectious process would defer that until after his operative management there is no significant leukocytosis there is no eosinophilia I would suggest
something like filiriasis or significant travel
# Essential hypertension by history
-Continue amlodipine
-May also be contributing to some of his lower extremity edema
# Hyperlipidemia
-Continue on statin
# Prior history of CVA
-Continue on aspirin low-dose
-Postop DVT prophylaxis as per orthopedic service otherwise
# Gastroesophageal reflux disease
-Continue PPI
DVT prophylaxis pharmacologic will be held till postop status and as per orthopedics/venous pumps otherwise/325 mg aspirin
Full CODE STATUS acknowledged by spouse at bedside
Anticipated Discharge: 24 - 48 hours
Subjective/Interval History
-
Date of Service: July 04, 2023
No issues overnight after OR yesterday/he remains weak in upper and lower extremities that has been ongoing for weeks if not months it was to have further follow-up as an outpatient with MRI of the cervical spine
Objective Data
-
Labs:
Laboratory Results
07/04/23
05:24
WBC 12.0 H
Hgb 11.6 L
Hct 33.6 L
Plt Count 186
Sodium 133 L
Potassium 4.6
Chloride 105
Carbon Dioxide 26
BUN 20
Creatinine 0.7
Glucose 130 H
Calcium 8.8
Vital Signs:
Vital Signs
Temp Pulse Resp BP Pulse Ox
97.5 F 84 18 138/74 97
07/04/23 07:49 07/04/23 07:49 07/04/23 07:49 07/04/23 07:49 07/04/23 07:49
I&O
07/03/23 07/04/23 07/05/23
06:59 06:59 06:59
Intake Total 1820 / 1820 1365 / 1365
Output Total 1225 / 1225 850 / 850
Balance 595 / 595 515 / 515
Review of Systems
-
History Source: Patient and Family
Constitutional: Reports Weakness (Of both upper and lower extremities for weeks)
Respiratory: Reports No Symptoms
Cardiac: Reports No Symptoms
Abdomen/GI: Reports No Symptoms
Musculoskeletal: Reports Edema (Left lower extremity out of proportion to the right)
Physical Exam
-
General: Well Developed
HEENT: Normocephalic
Respiratory: Clear to Auscultation
Cardiac: Regular Rhythm
GI: Soft and Nontender
Musculoskeletal: Edema, Left Lower Extrem (3-4+)
Skin: IV Access / Catheter Site
Neuro: No Motor Deficits (Diminished strength and inability to raise his arms above shoulder level also exhibits lower extremity weakness for weeks)
Psych: Calm
Data Reviewed
-
Total Time Spent with Patient (in minutes): 56
Labs: Labs Reviewed by me
[2023-07-04 08:50] VITALS: BP 146/67; PULSE 72; O2SAT 97
--- NOTE | 2023-07-04 09:11 | W.PN.ORTHO ---
Today's Communication / Plan
-
77-year-old male postop day #1 left hip cephalomedullary nail performed on 07/03/2023 under the direction of Dr. Bourgeois.
- WBAT LLE with use of walker for ambulatory assistance.
- ASA 325mg once daily x 30 days for DVT prophylaxis; Pneumatic compression sleeves.
- PT/OT.
- Hemoglobin this AM 11.6. Continue to monitor and trend.
- Pain control per primary team.
- Case management regarding discharge planning.
- Orthopedic surgery will continue to follow along.
Assessment
.
Distal Motor Intact: Yes
Dressing:
Clean, dry and intact.
Assessment:
Postop day #1 left hip cephalomedullary nail
Plan
.
Surgery / Date: Left Hip CMN 07/03/2023 ([facility])
DVT Prophylaxis: Aspirin
Activity:
Out of bed.
PT/OT
Discharge Information:
Appreciate CM.
Subjective
.
.:
Patient resting comfortably. Reports that his pain is well-controlled and he is doing well this morning.
Vital Signs and Labs
.
Vital Signs and Labs:
Lab Results
07/04/23 05:24
07/04/23 05:24
Temp Pulse Resp BP Pulse Ox
97.5 F 84 18 138/74 97
07/04/23 07:49 07/04/23 07:49 07/04/23 07:49 07/04/23 07:49 07/04/23 07:49
PT 14.0 Sec (11.4-14.6) 07/01/23 16:31
INR 1.08 07/01/23 16:31
Physical Exam
-
Physical examination of the left lower extremity, with attention to left hip, reveals an Aquacel dressing over the proximal lateral thigh to be intact. Very scant bloody drainage. 4 x 4's with Tegaderm over the lateral thigh and distal femur clean
dry and intact. No erythema, warmth, or significant ecchymosis to this point. Mild tenderness to palpation of the left hip. Able to dorsiflex and plantarflex left lower extremity. Thigh is soft and compressible. Calf is edematous with +3
pitting edema, however nontender to palpation. Patient is neurovascularly intact distally. He is sitting in his bedside chair on examination this morning.
[2023-07-04 14:43] LABS: Urine Albumin Trace (Neg - Trace); Urine Bilirubin Negative (Negative); Urine Character Slightly Cloudy (Clear); Urine Color Yellow; Urine Glucose Negative (Negative); Urine Ketone Negative (Negative); Urine Leukocyte Negative (Negative); Urine Nitrite Negative (Negative); Urine Occult Blood 4+ (Negative); Urine Urobilinogen Negative (Neg - 1+)
[2023-07-04 15:18] VITALS: BP 141/67
[2023-07-04 15:20] LABS: Urine Amorphous Seen; Urine Red Blood Cell >100 /HPF (0-2)
[2023-07-04 15:22] LABS: Urine Calcium Oxalate Crystals Seen
[2023-07-04 15:24] LABS: Urine Bacteria Moderate (Negative)
[2023-07-04] MEDS: LEXAPRO 10 MG PO (20:00)
[2023-07-04] MEDS: NORVASC 5 MG PO (20:00)
[2023-07-04 23:05] VITALS: BP 149/72
--- NOTE | 2023-07-05 04:50 | PTCARENOTE ---
pt ambulated 10feet this morning, assist of 1 with rw. Pt was able to stand at bedside and void in urinal as he expressed having a difficult time voiding in a siting position in bed. Pt tolerated ambulation well.
[2023-07-05 07:08] VITALS: BP 156/75
[2023-07-05 08:17] LABS: Hematocrit 35.7 % (39.0-52.0); Mean Corp Hgb Conc. 33.6 g/dL (33.0-37.0); Mean Corpuscular Hgb 33.4 pg (27.0-31.0); Mean Corpuscular Volume 99.4 fL (80.0-94.0); Mean Platelet Volume 10.3 fL (7.4-10.4); Platelet Count 213 10^3/uL (130-400); Red Blood Cell Count 3.59 10^6/uL (4.70-6.10); Red Cell Dist. Width 14.7 % (11.5-14.5); White Blood Cell Count 15.5 10^3/uL (4.8-10.8)
[2023-07-05] MEDS: ASPIRIN 325 MG PO (08:47)
[2023-07-05] MEDS: PROTONIX 40 MG PO (08:47)
[2023-07-05] MEDS: CRESTOR 5 MG PO (08:47)
[2023-07-05 08:57] LABS: Blood Urea Nitrogen 25 mg/dl (9-20); Calcium 8.8 mg/dl (8.4-10.2); Carbon Dioxide 28 mmol/L (22-30); Chloride 103 mmol/L (98-107); Estimated Creatinine Clearance 85 ml/min; Glucose 88 mg/dl (70-99); Potassium 4.3 mmol/L (3.5-5.1); Sodium 135 mmol/L (135-145); eGFR > 60.00
[2023-07-05 10:20] VITALS: BP 128/68; BP 156/69; PULSE 79; O2SAT 96
--- NOTE | 2023-07-05 10:24 | W.PN.UPDATE ---
Update Note
Progress Note Update
Mr. Soriano is POD2 following his left hip CMN performed by Dr. Bourgeois. He is resting comfortably in bed this morning, and reports minimal pain in the hip. He does endorse weakness throughout his extremities which was present prior to surgery,
and had a c-spine MRI performed yesterday.
Directed exam of the left lower extremity reveals surgical dressings clean, dry and intact. Edema throughout the left lower extremity. Thigh soft and compressible. Calf soft and nontender. Patient able to wiggle toes, plantar and dorsiflex ankle.
Neurovascularly intact distally.
Hgb 12.0 this AM.
MRI C-spine 07/04/2023 IMPRESSION:
Multilevel discogenic, facet, and uncinate degenerative changes. Subtle degenerative anterolisthesis of C2 and C3. No compression deformity.
C2-3: Moderate posterior central broad-based disc protrusion contacting the ventral cervical cord without compression. Mild to moderate right and mild left foraminal narrowing.
C3-4: Disc osteophyte complex. Slight impression on the ventral margin of the cervical cord. Mild central canal narrowing. Advanced left and moderate right foraminal stenosis.
C4-5: Moderate central canal stenosis. Slight impression on the ventral margin of the cervical cord. Advanced bilateral foraminal stenosis.
C5-6: Mild to moderate central canal narrowing. Slight impression on the ventral margin of the cervical cord. Severe foraminal stenosis, right greater than left.
C6-7: Minimal central canal narrowing. Moderate to advanced right and mild left foraminal narrowing.
C7-T1: Moderate to advanced left and moderate right foraminal stenosis.
Findings suspicious for nonspecific cervical myelopathy at C2 and C3, as described. No associated abnormal enhancement.
77-year-old male postop day #2 left hip cephalomedullary nail performed on 07/03/2023 under the direction of Dr. Bourgeois.
--Continue WBAT LLE with use of walker for ambulatory assistance. We appreciate the assistance of PT/OT.
--ASA 325mg once daily x 30 days for DVT prophylaxis; Pneumatic compression sleeves.
--Hemoglobin this AM 12.0. Continue to monitor and trend.
--Pain control per primary team.
--Case management regarding discharge planning.
--Patient stable post-operatively from an orthopedic standpoint. Orthopedic surgery will follow peripherally for now. Please reengage with any additional questions or concerns.
Extremity weakness
--MRI of cervical spine shows findings suspicious for cervical myelopathy at C2-C3. Would recommend neurology consult for further management.
[2023-07-05 11:01] VITALS: BP 128/68; BP 156/69; PULSE 114; PULSE 79; O2SAT 96
[2023-07-05] MEDS: FLOMAX 0.4 MG PO (12:57)
--- NOTE | 2023-07-05 13:14 | CM ---
CM reviewed pt with Dr Moses- ADC tomorrow
Bedside meeting with pt and spouse
SNF recommended by therapy
PAC provided
Referrals sent via [facility] to [facility] and [facility]- [facility] is 1st choice
Discharge Disposition- SNF
[2023-07-05 15:00] VITALS: BP 134/57
--- NOTE | 2023-07-05 16:10 | W.PN.HOSP.TC ---
Today's Communication/Plan
-
Monitor for urinary retention, may required Villareal catheter
Flomax
Monitor for hypotension
Physical therapy ablation
Placement to rehab.
Assessment / Plan
Assessment / Plan
77-year-old male with past medical history of hypertension, hyperlipidemia, CAD, CKD who presents to the emergency room accompanied by his sent in after outpatient MRI showed femur fracture. Patient has been reportedly undergoing outpatient
workup for left leg swelling over the past 2 to 3 months. Workup has included vascular ultrasounds of the IVC and left lower extremity to rule out DVT�these were performed in March shortly after onset. He has been using conservative treatment
such as compression stockings and elevation without significant improvement in the swelling and ultimately was referred for a pelvic MRI to further workup this left leg swelling.
MRI was done yesterday and patient received a call today that it was positive for a left hip fracture and was referred to the emergency room for orthopedic consultation by his primary doctor. He has had some mild pain in the low back and slightly
in left hip but it sounds like this is more of a chronic issue. He denies any specific fall onto his left hip but says that he has had numerous mechanical falls over the past 6 months�mostly while doing chores including carrying tools up the steps,
working on the roof, doing yard work. He denies being on any blood thinners aside from a baby aspirin. Last meal was about an hour prior to arrival.
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
eventually require apparently an ERCP in early July by Dr. Ybarra he has been largely asymptomatic from that aspect. Multiple x-rays preceding the MRI were all negative for fracture. A venous Doppler was also negative for thrombus.
# Left hip intertrochanteric fracture/status post cephalomedullary nail fixation July 02
Aspirin for DVT prophylaxis
Continue physical therapy
Case management consultation for rehab placement.
# Urinary retention.
Renal/bladder sonogram confirming bladder outlet obstruction with urinary retention.
Continue bladder scan.
If persistent may require Villareal catheter placement
Initiate Flomax on 07/04.
# Incidental finding of choledocholelithiasis seen on recent workup for his edema
-Will need eventual ERCP early next month
-Explains transaminitis
-Relatively asymptomatic
#Arm and leg weakness for weeks
-Was to have outpatient MRI of the cervical spine will order here
-
# Left leg edema
-Present for months and presume in relation to his fracture as no other etiology found
-Workup has included Doppler of IVC/venous Doppler lower extremity without signs of thrombosis
-MRI of the abdomen pelvis
-All workup back in September 2022 with abdomen/pelvic CT/showed no evidence of any pelvic or abdominal thromboses
-History of May-Thurner syndrome?/Patient himself is unaware of any consideration for that diagnosis and unclear if this ever been made and no other criteria to fit
-Discussed the workup thus far with his primary care provider she has also reached out to infectious disease wireless sales consultant Dr. Moon in regards to obscure causes to this patient's ongoing left lower extremity edema which cannot be laid slowly at
this the new finding of a hip fracture which may be just incidental/there have been no obvious infectious process would defer that until after his operative management there is no significant leukocytosis there is no eosinophilia I would suggest
something like filiriasis or significant travel
# Essential hypertension by history
-Continue amlodipine
-May also be contributing to some of his lower extremity edema
# Hyperlipidemia
-Continue on statin
# Prior history of CVA
-Continue on aspirin low-dose
-Postop DVT prophylaxis as per orthopedic service otherwise
# Gastroesophageal reflux disease
-Continue PPI
DVT prophylaxis pharmacologic will be held till postop status and as per orthopedics/venous pumps otherwise/325 mg aspirin
Full CODE STATUS acknowledged by spouse at bedside
Anticipated Discharge: 24 - 48 hours
Subjective/Interval History
-
Date of Service: July 05, 2023
Objective Data
-
Labs:
Laboratory Results
07/05/23
06:33
WBC 15.5 H
Hgb 12.0 L
Hct 35.7 L
Plt Count 213
Sodium 135
Potassium 4.3
Chloride 103
Carbon Dioxide 28
BUN 25 H
Creatinine 0.8
Glucose 88
Calcium 8.8
Vital Signs:
Vital Signs
Temp Pulse Resp BP Pulse Ox
97.5 F 73 18 134/57 96
07/05/23 15:00 07/05/23 15:00 07/05/23 15:00 07/05/23 15:00 07/05/23 15:00
I&O
07/04/23 07/05/23 07/06/23
06:59 06:59 06:59
Intake Total 1365 / 1365 1520 / 1520
Output Total 850 / 850 1285 / 1285
Balance 515 / 515 235 / 235
Physical Exam
-
General: Well Developed and No Apparent Distress
HEENT: Normocephalic, Atraumatic and Moist Mucous Membranes
Respiratory: Clear to Auscultation
Cardiac: Regular Rhythm and S1/S2; Negative Murmur, Rub or Gallop
GI: Soft, Nontender, Nondistended and Normal Bowel Sounds; Negative Organomegaly
Rectal: Deferred by Provider
Musculoskeletal: No Clubbing, No Cyanosis and No Edema
Skin: Negative Rash
Neuro: Nonfocal/Grossly Intact
[2023-07-05] MEDS: NORVASC 5 MG PO (21:33)
[2023-07-05] MEDS: LEXAPRO 10 MG PO (21:34)
[2023-07-05 23:14] VITALS: BP 149/65
[2023-07-06 07:03] VITALS: BP 142/72
[2023-07-06] MEDS: ASPIRIN 325 MG PO (07:42)
[2023-07-06] MEDS: FLOMAX 0.4 MG PO (07:42)
[2023-07-06] MEDS: PROTONIX 40 MG PO (07:42)
[2023-07-06] MEDS: CRESTOR 5 MG PO (07:42)
[2023-07-06] MEDS: MIRALAX 17 GRAMS PO ×2 (09:10→12:00)
--- NOTE | 2023-07-06 11:41 | CM ---
Addendum entered by YG Campa 07/06/23 13:10:
Patient's asked to speak to CM. Placed a call to room as to not make her wait due to being on a different unit. Patient's stated that [facility] is her preference as she would be able to see patient easier. Will need to call Shonda in admissions
to confirm bed availability and report back to patient's .
Original Note:
Per RN, patient requested to see CM. Met with patient. Updated about bed availability at [facility]. Patient stated that he was advised that he has to get a stone removed from his liver and it has to be on the 17 of July. Explanation provided to
patient that he would most likely have to wait until after his rehab is over to have the procedure done. He verbalized understanding.
Will confirm with Augustina in admissions that this is the case as he most likely will not be able to travel back and forth to and from SNF.
Plan: Case management will continue to follow and assist with discharge planning. SNF when stable.
[2023-07-06 13:02] LABS: Urine Albumin Trace (Neg - Trace); Urine Bilirubin Negative (Negative); Urine Character Clear (Clear); Urine Color Yellow; Urine Glucose Negative (Negative); Urine Ketone Negative (Negative); Urine Leukocyte Trace (Negative); Urine Nitrite Negative (Negative); Urine Occult Blood 4+ (Negative); Urine Urobilinogen Negative (Neg - 1+)
[2023-07-06 13:27] LABS: Urine Squamous Cell 0-2 /LPF (Few)
[2023-07-06 13:28] LABS: Urine Bacteria Few (Negative); Urine Red Blood Cell 16-20 /HPF (0-2)
[2023-07-06 13:48] VITALS: BP 116/72; BP 135/70; BP 173/79; PULSE 128; PULSE 84; O2SAT 99
[2023-07-06 14:02] VITALS: BP 116/72; BP 135/70; BP 173/79; PULSE 128; PULSE 84; O2SAT 99
[2023-07-06] MEDS: DULCOLAX 10 MG RECTAL (14:16)
[2023-07-06 15:40] VITALS: BP 141/74
--- NOTE | 2023-07-06 17:04 | W.PN.HOSP.TC ---
Today's Communication/Plan
-
Treat constipation
Bladder scan.
Noted with elevated white count at 15, although afebrile with no specific complaints pinpointing to possible infection.
Repeat UA and reflex to culture.
Knowing choledocholithiasis (currently asymptomatic) follow-up CMP
Monitor closely off antibiotics.
Follow WBC in the morning
Assessment / Plan
Assessment / Plan
77-year-old male with past medical history of hypertension, hyperlipidemia, CAD, CKD who presents to the emergency room accompanied by his sent in after outpatient MRI showed femur fracture. Patient has been reportedly undergoing outpatient
workup for left leg swelling over the past 2 to 3 months. Workup has included vascular ultrasounds of the IVC and left lower extremity to rule out DVT�these were performed in March shortly after onset. He has been using conservative treatment
such as compression stockings and elevation without significant improvement in the swelling and ultimately was referred for a pelvic MRI to further workup this left leg swelling.
MRI was done yesterday and patient received a call today that it was positive for a left hip fracture and was referred to the emergency room for orthopedic consultation by his primary doctor. He has had some mild pain in the low back and slightly
in left hip but it sounds like this is more of a chronic issue. He denies any specific fall onto his left hip but says that he has had numerous mechanical falls over the past 6 months�mostly while doing chores including carrying tools up the steps,
working on the roof, doing yard work. He denies being on any blood thinners aside from a baby aspirin. Last meal was about an hour prior to arrival.
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
eventually require apparently an ERCP in early July by Dr. Ybarra he has been largely asymptomatic from that aspect. Multiple x-rays preceding the MRI were all negative for fracture. A venous Doppler was also negative for thrombus.
# Left hip intertrochanteric fracture/status post cephalomedullary nail fixation July 02
Aspirin for DVT prophylaxis
Continue physical therapy
Case management consultation for rehab placement.
# Urinary retention.
Renal/bladder sonogram confirming bladder outlet obstruction with urinary retention.
Continue bladder scan.
If persistent may require Villareal catheter placement
Initiated on Flomax on 07/04 with severe orthostatic hypotension. Hold Flomax
Treat constipation
# Incidental finding of choledocholelithiasis seen on recent workup for his edema
-Will need eventual ERCP early next month
-Explains transaminitis
-Relatively asymptomatic
#Arm and leg weakness for weeks
-Was to have outpatient MRI of the cervical spine will order here
-
# Left leg edema
-Present for months and presume in relation to his fracture as no other etiology found
-Workup has included Doppler of IVC/venous Doppler lower extremity without signs of thrombosis
-MRI of the abdomen pelvis
-All workup back in September 2022 with abdomen/pelvic CT/showed no evidence of any pelvic or abdominal thromboses
-History of May-Thurner syndrome?/Patient himself is unaware of any consideration for that diagnosis and unclear if this ever been made and no other criteria to fit
-Discussed the workup thus far with his primary care provider she has also reached out to infectious disease insolvency consultant Dr. Moon in regards to obscure causes to this patient's ongoing left lower extremity edema which cannot be laid slowly at
this the new finding of a hip fracture which may be just incidental/there have been no obvious infectious process would defer that until after his operative management there is no significant leukocytosis there is no eosinophilia I would suggest
something like filiriasis or significant travel
# Essential hypertension by history
-Continue amlodipine
-May also be contributing to some of his lower extremity edema
# Hyperlipidemia
-Continue on statin
# Prior history of CVA
-Continue on aspirin low-dose
-Postop DVT prophylaxis as per orthopedic service otherwise
# Gastroesophageal reflux disease
-Continue PPI
DVT prophylaxis pharmacologic will be held till postop status and as per orthopedics/venous pumps otherwise/325 mg aspirin
Full CODE STATUS acknowledged by spouse at bedside
Anticipated Discharge: 24 - 48 hours
Subjective/Interval History
-
Date of Service: July 06, 2023
Objective Data
-
Vital Signs:
Vital Signs
Temp Pulse Resp BP Pulse Ox
98 F 84 17 141/74 96
07/06/23 15:40 07/06/23 15:40 07/06/23 15:40 07/06/23 15:40 07/06/23 15:40
I&O
07/05/23 07/06/23 07/07/23
06:59 06:59 06:59
Intake Total 1520 / 1520 960 / 960
Output Total 1285 / 1285 1500 / 1500
Balance 235 / 235 -540 / -540
Physical Exam
-
General: Well Developed and No Apparent Distress
HEENT: Normocephalic, Atraumatic and Moist Mucous Membranes
Respiratory: Clear to Auscultation
Cardiac: Regular Rhythm and S1/S2; Negative Murmur, Rub or Gallop
GI: Soft, Nontender, Nondistended and Normal Bowel Sounds; Negative Organomegaly
Rectal: Deferred by Provider
Musculoskeletal: No Clubbing, No Cyanosis and No Edema
Skin: Negative Rash
Neuro: Nonfocal/Grossly Intact
[2023-07-06] MEDS: NORVASC 5 MG PO (22:28)
[2023-07-06] MEDS: MAALOX 30 ML PO (22:28)
[2023-07-06] MEDS: LEXAPRO 10 MG PO (22:28)
[2023-07-06 22:29] VITALS: BP 147/73
[2023-07-07 03:10] VITALS: BP 149/74
[2023-07-07 06:19] LABS: % Basophils 0.4 % (0-2); % Immature Granulocytes 0.6 % (0-0.5); % Lymphocytes 19.7 % (20.5-51.1); % Monocytes 7.6 % (1.7-9.3); % Neutrophils 67.7 % (42.2-75.2); Absolute Eosinophils 0.4 10^3/uL (0-0.7); Absolute Immature Granulocytes 0.1 10^3/uL (0-0.05); Absolute Lymphocytes 1.9 10^3/uL (1.2-3.4); Absolute Monocytes 0.7 10^3/uL (0.1-0.6); Absolute Neutrophils 6.6 10^3/uL (1.4-6.5); Hematocrit 32.1 % (39.0-52.0); Hemoglobin 11.1 g/dL (13.0-18.0); Mean Corp Hgb Conc. 34.6 g/dL (33.0-37.0); Mean Corpuscular Hgb 33.5 pg (27.0-31.0); Mean Platelet Volume 10.1 fL (7.4-10.4); Nucleated Red Blood Cells % 0 % (-); Platelet Count 215 10^3/uL (130-400); Red Blood Cell Count 3.31 10^6/uL (4.70-6.10); Red Cell Dist. Width 14.4 % (11.5-14.5); White Blood Cell Count 9.7 10^3/uL (4.8-10.8)
[2023-07-07 06:59] LABS: ALT (SGPT) 99 U/L (0-50); AST (SGOT) 149 U/L (17-59); Albumin 2.6 g/dl (3.5-5.0); Alkaline Phosphatase 84 U/L (38-126); Blood Urea Nitrogen 22 mg/dl (9-20); Calcium 8.5 mg/dl (8.4-10.2); Carbon Dioxide 30 mmol/L (22-30); Chloride 103 mmol/L (98-107); Estimated Creatinine Clearance 85 ml/min; Glucose 87 mg/dl (70-99); Potassium 3.8 mmol/L (3.5-5.1); Sodium 133 mmol/L (135-145); Total Bilirubin 0.5 mg/dl (0.2-1.3); Total Protein 5.1 g/dl (6.3-8.2); eGFR > 60.00
[2023-07-07 07:15] VITALS: BP 138/70
[2023-07-07] MEDS: MIRALAX 17 GRAMS PO (07:53)
[2023-07-07] MEDS: CRESTOR 5 MG PO (07:53)
[2023-07-07] MEDS: PROTONIX 40 MG PO (07:53)
[2023-07-07] MEDS: ASPIRIN 325 MG PO (07:53)
[2023-07-07 13:05] VITALS: BP 120/70
[2023-07-07 13:42] VITALS: BP 120/70; PULSE 106
--- NOTE | 2023-07-07 16:21 | CM ---
Discharge Plan of Care: Therapy recommendation for SNF. [facility] not have a bed. [facility] willing to accept pending bed availability. Patient will discuss with .
--- NOTE | 2023-07-07 17:25 | W.PN.HOSP.TC ---
Today's Communication/Plan
-
Physical therapy
Bowel regimen
Monitor for urine retention
Placement to [facility] pending bed availability
Assessment / Plan
Assessment / Plan
77-year-old male with past medical history of hypertension, hyperlipidemia, CAD, CKD who presents to the emergency room accompanied by his sent in after outpatient MRI showed femur fracture. Patient has been reportedly undergoing outpatient
workup for left leg swelling over the past 2 to 3 months. Workup has included vascular ultrasounds of the IVC and left lower extremity to rule out DVT�these were performed in March shortly after onset. He has been using conservative treatment
such as compression stockings and elevation without significant improvement in the swelling and ultimately was referred for a pelvic MRI to further workup this left leg swelling.
MRI was done yesterday and patient received a call today that it was positive for a left hip fracture and was referred to the emergency room for orthopedic consultation by his primary doctor. He has had some mild pain in the low back and slightly
in left hip but it sounds like this is more of a chronic issue. He denies any specific fall onto his left hip but says that he has had numerous mechanical falls over the past 6 months�mostly while doing chores including carrying tools up the steps,
working on the roof, doing yard work. He denies being on any blood thinners aside from a baby aspirin. Last meal was about an hour prior to arrival.
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
eventually require apparently an ERCP in early July by Dr. Ybarra he has been largely asymptomatic from that aspect. Multiple x-rays preceding the MRI were all negative for fracture. A venous Doppler was also negative for thrombus.
# Left hip intertrochanteric fracture/status post cephalomedullary nail fixation July 02
Aspirin for DVT prophylaxis
Continue physical therapy
Case management consultation for rehab placement.
# Urinary retention.
Renal/bladder sonogram confirming bladder outlet obstruction with urinary retention.
Continue bladder scan.
If persistent may require Villareal catheter placement
Initiated on Flomax on 07/04 with severe orthostatic hypotension. Hold Flomax
Treat constipation
# Incidental finding of choledocholelithiasis seen on recent workup for his edema
-Will need eventual ERCP early next month
-Explains transaminitis
-Relatively asymptomatic
#Arm and leg weakness for weeks
-Was to have outpatient MRI of the cervical spine will order here
-
# Left leg edema, chronic
Patient with prior history of left common iliac vein compression. Status post left lower extremity venogram/central venogram, IV ultrasound with left iliac vein stenting by 18 x 19 mm Saman on 02/22/2023.
-Present for months and presume in relation to his fracture as no other etiology found
-Workup has included Doppler of IVC/venous Doppler lower extremity without signs of thrombosis
-MRI of the abdomen pelvis
-All workup back in September 2022 with abdomen/pelvic CT/showed no evidence of any pelvic or abdominal thromboses.
# Essential hypertension by history
-Continue amlodipine
-May also be contributing to some of his lower extremity edema
# Hyperlipidemia
-Continue on statin
# Prior history of CVA
-Continue on aspirin low-dose
-Postop DVT prophylaxis as per orthopedic service otherwise
# Gastroesophageal reflux disease
-Continue PPI
DVT prophylaxis pharmacologic will be held till postop status and as per orthopedics/venous pumps otherwise/325 mg aspirin
Full CODE STATUS acknowledged by spouse at bedside
Anticipated Discharge: 24 - 48 hours
Subjective/Interval History
-
Date of Service: July 07, 2023
Objective Data
-
Labs:
Laboratory Results
07/07/23
05:32
WBC 9.7
Hgb 11.1 L
Hct 32.1 L
Plt Count 215
Sodium 133 L
Potassium 3.8
Chloride 103
Carbon Dioxide 30
BUN 22 H
Creatinine 0.8
Glucose 87
Calcium 8.5
Total Bilirubin 0.5
AST 149 H
ALT 99 H
Alkaline Phosphatase 84
Vital Signs:
Vital Signs
Temp Pulse Resp BP Pulse Ox
98.4 F 83 16 138/70 95
07/07/23 07:15 07/07/23 07:15 07/07/23 07:15 07/07/23 07:15 07/07/23 07:15
I&O
07/06/23 07/07/23 07/08/23
06:59 06:59 06:59
Intake Total 960 / 960 1560 / 1560
Output Total 1500 / 1500 1750 / 1750
Balance -540 / -540 -190 / -190
Physical Exam
-
General: Well Developed and No Apparent Distress
HEENT: Normocephalic, Atraumatic and Moist Mucous Membranes
Respiratory: Clear to Auscultation
Cardiac: Regular Rhythm and S1/S2; Negative Murmur, Rub or Gallop
GI: Soft, Nontender, Nondistended and Normal Bowel Sounds; Negative Organomegaly
Rectal: Deferred by Provider
Musculoskeletal: No Clubbing, No Cyanosis and No Edema
Skin: Negative Rash
Neuro: Nonfocal/Grossly Intact
[2023-07-07] MEDS: LEXAPRO 10 MG PO (21:45)
[2023-07-07] MEDS: NORVASC 5 MG PO (21:46)
[2023-07-07 22:57] VITALS: BP 137/63
[2023-07-08 07:37] VITALS: BP 141/64
[2023-07-08] MEDS: CRESTOR 5 MG PO (09:49)
[2023-07-08] MEDS: PROTONIX 40 MG PO (09:49)
[2023-07-08] MEDS: ASPIRIN 325 MG PO (09:49)
[2023-07-08] MEDS: MIRALAX PO ×2 (09:49→09:53)
[2023-07-08 13:05] VITALS: BP 100/54; BP 149/71; PULSE 74; O2SAT 95
[2023-07-08 13:10] VITALS: BP 100/54; BP 149/71; PULSE 74; O2SAT 95
[2023-07-08 15:08] VITALS: BP 131/69
--- NOTE | 2023-07-08 15:20 | CM ---
Patient has been accepted to [facility] for jail and rehab services. Discharge scheduled for 07/09/23 and transport is scheduled for 1:00 PM. IMM signed and in chart. Patient, , MD, team and [facility] admissions notified.
NURSE TO NURSE # [phone]
FAX # [phone]
--- NOTE | 2023-07-08 16:19 | W.PN.HOSP.TC ---
Today's Communication/Plan
-
Continue physical therapy
Pending placement to [facility] facility tentatively on 07/08
Assessment / Plan
Assessment / Plan
77-year-old male with past medical history of hypertension, hyperlipidemia, CAD, CKD who presents to the emergency room accompanied by his sent in after outpatient MRI showed femur fracture. Patient has been reportedly undergoing outpatient
workup for left leg swelling over the past 2 to 3 months. Workup has included vascular ultrasounds of the IVC and left lower extremity to rule out DVT�these were performed in March shortly after onset. He has been using conservative treatment
such as compression stockings and elevation without significant improvement in the swelling and ultimately was referred for a pelvic MRI to further workup this left leg swelling.
MRI was done yesterday and patient received a call today that it was positive for a left hip fracture and was referred to the emergency room for orthopedic consultation by his primary doctor. He has had some mild pain in the low back and slightly
in left hip but it sounds like this is more of a chronic issue. He denies any specific fall onto his left hip but says that he has had numerous mechanical falls over the past 6 months�mostly while doing chores including carrying tools up the steps,
working on the roof, doing yard work. He denies being on any blood thinners aside from a baby aspirin. Last meal was about an hour prior to arrival.
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
eventually require apparently an ERCP in early July by Dr. Ybarra he has been largely asymptomatic from that aspect. Multiple x-rays preceding the MRI were all negative for fracture. A venous Doppler was also negative for thrombus.
# Left hip intertrochanteric fracture/status post cephalomedullary nail fixation July 02
Aspirin for DVT prophylaxis
Continue physical therapy
Case management consultation for rehab placement.
# Urinary retention.
Renal/bladder sonogram confirming bladder outlet obstruction with urinary retention.
Continue bladder scan.
If persistent may require Villareal catheter placement
Initiated on Flomax on 07/04 with severe orthostatic hypotension. Hold Flomax
Treat constipation
# Incidental finding of choledocholelithiasis seen on recent workup for his edema
-Will need eventual ERCP early next month
-Explains transaminitis
-Relatively asymptomatic
#Arm and leg weakness for weeks
-Was to have outpatient MRI of the cervical spine will order here
-
# Left leg edema, chronic
Patient with prior history of left common iliac vein compression. Status post left lower extremity venogram/central venogram, IV ultrasound with left iliac vein stenting by 18 x 19 mm Wallstent on 02/22/2023.
-Present for months and presume in relation to his fracture as no other etiology found
-Workup has included Doppler of IVC/venous Doppler lower extremity without signs of thrombosis
-MRI of the abdomen pelvis
-All workup back in September 2022 with abdomen/pelvic CT/showed no evidence of any pelvic or abdominal thromboses.
# Essential hypertension by history
-Continue amlodipine
-May also be contributing to some of his lower extremity edema
# Hyperlipidemia
-Continue on statin
# Prior history of CVA
-Continue on aspirin low-dose
-Postop DVT prophylaxis as per orthopedic service otherwise
# Gastroesophageal reflux disease
-Continue PPI
DVT prophylaxis pharmacologic will be held till postop status and as per orthopedics/venous pumps otherwise/325 mg aspirin
Full CODE STATUS acknowledged by spouse at bedside
Anticipated Discharge: 24 - 48 hours
Subjective/Interval History
-
Date of Service: July 08, 2023
Objective Data
-
Vital Signs:
Vital Signs
Temp Pulse Resp BP Pulse Ox
98.1 F 83 18 131/69 99
07/08/23 15:08 07/08/23 15:08 07/08/23 15:08 07/08/23 15:08 07/08/23 15:08
I&O
07/07/23 07/08/23 07/09/23
06:59 06:59 06:59
Intake Total 1560 / 1560 960 / 960
Output Total 1750 / 1750 2014
Balance -190 / -190 -1055 / -1055
Physical Exam
-
General: Well Developed and No Apparent Distress
HEENT: Normocephalic, Atraumatic and Moist Mucous Membranes
Respiratory: Clear to Auscultation
Cardiac: Regular Rhythm and S1/S2; Negative Murmur, Rub or Gallop
GI: Soft, Nontender, Nondistended and Normal Bowel Sounds; Negative Organomegaly
Rectal: Deferred by Provider
Musculoskeletal: No Clubbing, No Cyanosis and No Edema
Skin: Negative Rash
Neuro: Nonfocal/Grossly Intact
[2023-07-08] MEDS: LEXAPRO 10 MG PO (22:11)
[2023-07-08] MEDS: NORVASC 5 MG PO (22:11)
[2023-07-08 23:10] VITALS: BP 138/64
[2023-07-09 07:51] VITALS: BP 134/61
[2023-07-09] MEDS: MIRALAX PO (08:52)
[2023-07-09] MEDS: ASPIRIN 325 MG PO (08:53)
[2023-07-09] MEDS: PROTONIX 40 MG PO (08:53)
[2023-07-09] MEDS: CRESTOR 5 MG PO (08:53)
[2023-07-09 11:12] VITALS: BP 143/65
--- NOTE | 2023-07-09 11:22 | W.DS.TRANS ---
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
-
Discharge Instructions:
Discharge Diagnosis/Procedures Left hip fracture
Diet Regular
Instructions:
Stand-Alone Forms:
Changes to Home Medications: No
Discharge Medications:
DC Medications w/original date entered in [employer]
amlodipine 5 mg tablet (Norvasc) 5 mg PO HS Blood Pressure 09/29/22
escitalopram oxalate 10 mg tablet (Lexapro) 10 mg PO HS Mental Health 09/29/22
rosuvastatin 5 mg tablet (Crestor) 5 mg PO DAILY High Cholesterol 09/29/22
pantoprazole 40 mg tablet,delayed release 40 mg PO DAILY Gastrointestinal Issue 07/01/23
acetaminophen 325 mg tablet 650 mg (2 x 325 mg) PO Q4HPRN PRN mild pain/ROSALES/temp> 100.4F #30 tabs 07/09/23
aspirin 325 mg tablet 325 mg PO DAILY #30 tabs 07/09/23
docusate sodium 100 mg capsule 100 mg PO BIDPRN PRN constipation #60 caps 07/09/23
oxycodone 5 mg tablet 5 mg PO Q4HPRN PRN mild pain #10 tabs 07/09/23
polyethylene glycol 3350 17 gram oral powder packet (HealthyLax) 17 g PO DAILYPRN PRN constipation #30 ea 07/09/23
Home Medication Changes
Pending Results: No
--- NOTE | 2023-07-09 12:09 | CM ---
Patient has been medically cleared for discharge to [facility] halfway and rehab services. Transport scheduled for 1:00 PM. Patient, , MD, team and [facility] admissions notified.
NURSE TO NURSE # [phone]
FAX # [phone]
--- NOTE | 2023-07-09 13:40 | PN.CDI ---
CDI
- -
CDI:
Physician Documentation Request
Admit Date: 07/01/23 18:03
Dear Doctor Aurelia,
Clinical Indicators:
Patient admitted with eft hip intertrochanteric fracture; s/p cephalomedullary nail fixation July 02.
07/02 Anesthesia Report: EBL 50 ml IVF: 900 ml
Hgb/Hct trend:
07/01/23 07/03/23 07/07/23
16:31 05:47 05:32
Hgb 14.3 12.5 L 11.1 L
Hct 42.5 35.7 L 32.1 L
Based on the above, could you clarify in the progress notes, the appropriate diagnosis, if significant, that supports the above abnormalities and additional evaluation, monitoring and/or treatment rendered:
Acute blood loss anemia
Anemia, multifactorial due to acute blood loss and hemodilution
Abnormal labs values, clinically insignificant
Other
Use of terms such as suspected, likely, concern for, or probable (associated with a specific diagnosis that is being evaluated, monitored, or treated as if it exists) are acceptable and can be coded in the inpatient setting, when documented at the
time of discharge.
Thank you,
NAKUL Smith RN
CDI Specialist
available via tiger text
Please use your independent medical judgment in providing your response.
== END 2023-07-09 13:24 | DRG 481 ==
LOC: 2 SOUTH 18:03
PROVIDERS: ADMITTING PHYSICIAN Internal Medicine; ATTENDING PHYSICIAN Internal Medicine; CONSULT PHYSICIAN Orthopaedic Surgery; EMERGENCY PHYSICIAN Emergency Medicine; FAMILY PHYSICIAN Student in an Organized Health Care Education/Training Program
PROC: 0QS704Z Reposition Left Upper Femur with Internal Fixation Device, Open Approach (ICD-10-PCS; 2023-07-03)
DX: S72.142A Displaced intertrochanteric fracture of left femur, initial encounter for closed fracture (principal); D62 Acute posthemorrhagic anemia; I87.1 Compression of vein; Z79.82 Long term (current) use of aspirin; I12.9 Hypertensive chronic kidney disease with stage 1 through stage 4 chronic kidney disease, or unspecified chronic kidney disease; N18.9 Chronic kidney disease, unspecified; E78.00 Pure hypercholesterolemia, unspecified; K21.9 Gastro-esophageal reflux disease without esophagitis; K80.70 Calculus of gallbladder and bile duct without cholecystitis without obstruction; W19.XXXA Unspecified fall, initial encounter
CPT/HCPCS: 72156; 72197; 73552; 76000; 76770; 80048; 80053; 81003; 81015; 85025; 85027; 85610; 85730; 86850; 86900; 86901; 93005; 93971; 97110; 97116; 97163; 97167; 97530; 97535; 99284; A9575; C1713; C1769

== ENCOUNTER → 2023-07-28 11:08 | Outpatient (REF) | payer MEDICARE, OTHER, SELFPAY ==
[2023-07-28 11:46] LABS: Hematocrit 32.6 % (39.0-52.0); Hemoglobin 11.2 g/dL (13.0-18.0); Mean Corp Hgb Conc. 34.4 g/dL (33.0-37.0); Mean Corpuscular Hgb 33.1 pg (27.0-31.0); Mean Corpuscular Volume 96.4 fL (80.0-94.0); Mean Platelet Volume 10.3 fL (7.4-10.4); Platelet Count 320 10^3/uL (130-400); Red Blood Cell Count 3.38 10^6/uL (4.70-6.10); Red Cell Dist. Width 14.5 % (11.5-14.5); White Blood Cell Count 11.1 10^3/uL (4.8-10.8)
[2023-07-28 12:02] LABS: Blood Urea Nitrogen 20 mg/dl (9-20); Calcium 8.5 mg/dl (8.4-10.2); Carbon Dioxide 28 mmol/L (22-30); Chloride 100 mmol/L (98-107); Glucose 89 mg/dl (70-99); Potassium 3.5 mmol/L (3.5-5.1); Sodium 134 mmol/L (135-145); eGFR > 60.00
== END ==
LOC: OLABP 11:08
PROVIDERS: ATTENDING PHYSICIAN Family Medicine
DX: Z86.73 Personal history of transient ischemic attack (TIA), and cerebral infarction without residual deficits (principal); N18.9 Chronic kidney disease, unspecified; I25.10 Atherosclerotic heart disease of native coronary artery without angina pectoris; I11.9 Hypertensive heart disease without heart failure; M62.81 Muscle weakness (generalized); K80.50 Calculus of bile duct without cholangitis or cholecystitis without obstruction; M79.89 Other specified soft tissue disorders
CPT/HCPCS: 36415; 80048; 85027

== ENCOUNTER 2023-08-13 22:26 | Inpatient (IN) | payer MEDICARE, OTHER, SELFPAY ==
[2023-08-13 17:04] VITALS: BP 135/73
[2023-08-13 18:35] VITALS: BMI 23.8
--- NOTE | 2023-08-13 19:20 | ED.GENMED ---
History of Present Illness
General
Chief Complaint: Back Pain
Source: patient and spouse
Exam Limitations: none
Time Seen by Provider: 08/13/23 19:20
Nursing documentation reviewed up to this point in time: agreed with
Travel History
Have you had any contact with someone who has COVID-19?: No
Do you have any symptoms of coronavirus? Fever > 100 degrees, chills, cough, shortness of breath, sore throat, loss of taste or smell, muscle aches, or headache?: No
History of Present Illness
History of Present Illness:
The patient is a 77-year-old man who recently underwent a left hip surgery after fracture and has been living in [facility] for recovery. The patient reports that about 2 nights ago, he sat up to urinate and felt tightness in his low back. He
reports that since then, he has had significant weakness of both legs. He reports that the weakness is getting so severe that he is unable to stand up without people on each side which is very unusual for him. Patient prior to that was getting
around with a walker. Patient denies any significant pain in his back. He reports just stiffness across his low back. He denies numbness in the legs. He denies fever. He denies rash. He denies bowel and bladder incontinence.
Past History
Past History
ED Past Medical History: GERD, HTN and Hypercholesterolemia
ED Past Surgical History: Other (Hernia, cataract surgery)
Social History
Tobacco: Non-smoker
Alcohol: None
Drug: None
Personal:
Living: with family
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
Family History
Family History: Early CAD
Review of Systems
Review of Systems
Allergies reviewed?: Yes
Other source history: family
All Other Systems: ROS reviewed and negative except as documented in HPI and ROS
Constitutional: Reports fatigue
EENT: Reports no symptoms
Respiratory: Reports no symptoms
Cardiac: Reports no symptoms
ABD/GI: Reports no symptoms
: Reports no symptoms
Musculoskeletal: Reports muscle stiffness
Skin: Reports no symptoms
Neurological: Reports no symptoms
Endocrine: Reports no symptoms
Hematologic/Lymphatic: Reports no symptoms
Psychiatric: Reports no symptoms
Phy Exam
Physical Exam
Physical Exam:
Physical Exam
General: no apparent distress, not acutely ill
Neck: supple. no meningeal signs. normal psoterior pharynx
Heart: s1/s2 regular rate and rhythm, no murmur. equal radial pulses. Strong pulses in bilateral feet.
Lungs: no acute respiratory distress. clear bilaterally
Abdomen: normal bowel sounds. not tender. no CVAT, no vertebral spine tenderness. No flank tenderness. No saddle anesthesia
Neuro: alert and oriented. no focal neurological deficits
Skin: no rash
Psychiatric: well kept. interactive and cooperative
Extremities: 1+ pitting edema bilateral lower extremities. When I had patient get up to walk, he could not support his weight and could not take 1 step.
Course
Orders/Labs/Results
Orders:
Orders
08/13/23 20:13
CT Lumbar Spine W/o Iv Contras Urgent
Comment:
Reason For Exam: low back pain, bilateral leg weakness
08/13/23 20:29
Complete Blood Count/With Diff Urgent
Comprehensive Metabolic Panel Urgent
Urinalysis Reflex To Culture Urgent
Date Specimen was Collected: 08/13/23
Time Specimen was Collected: 20:24
Urine Microscopic Reflex Cult Urgent
Urine Culture Urgent
SHERIF Source: U
Specimen Description:
Date Specimen was Collected: 08/13/23
Time Specimen was Collected: 20:24
Abnormal Lab Results
08/13/23
20:29
WBC 14.4 H 10^3/uL
(4.8-10.8)
RBC 3.99 L 10^6/uL
(4.70-6.10)
Hct 37.4 L %
(39.0-52.0)
MCH 33.3 H pg
(27.0-31.0)
RDW 14.6 H %
(11.5-14.5)
Abs Immat Gran (auto) 0.1 H 10^3/uL
(0-0.05)
Absolute Neuts (auto) 11.9 H 10^3/uL
(1.4-6.5)
Absolute Monos (auto) 0.8 H 10^3/uL
(0.1-0.6)
Immature Gran % 0.8 H %
(0-0.5)
Neutrophils % 83.0 H %
(42.2-75.2)
Lymphocytes % 10.7 L %
(20.5-51.1)
Sodium 133 L mmol/L
(135-145)
BUN 33 H mg/dl
(9-20)
Glucose 116 H mg/dl
(70-99)
AST 194 H U/L
(17-59)
ALT 206 H U/L
(0-50)
Alkaline Phosphatase 185 H U/L
(38-126)
Albumin 3.3 L g/dl
(3.5-5.0)
Ur Occult Blood Reflex 4+ A
(Negative)
Urine Nitrite (Reflex) Positive A
(Negative)
Leukocyte Esterase Rfl 2+ A
(Negative)
Urine RBC 50-60 A /HPF
(0-2)
Urine WBC (Reflex) 16-20 A /HPF
(0-5)
Urine Bacteria (Reflex) Few A
(Negative)
Urine Yeast Moderate A
(Negative)
08/13/23 20:29
08/13/23 20:29
Vital Signs
Initial and Last Documented VS:
Initial Vital Signs
Temp Pulse Resp BP Pulse Ox
97.9 F 77 20 135/73 100
08/13/23 17:04 08/13/23 17:04 08/13/23 17:04 08/13/23 17:04 08/13/23 17:04
Last Documented Vital Signs
Temp Pulse Resp BP Pulse Ox
97.9 F 68 14 154/75 99
08/13/23 17:04 08/13/23 20:34 08/13/23 20:34 08/13/23 20:34 08/13/23 20:34
MDM/Problems Addressed
Differential Diagnosis Includes:
Hyponatremia, UTI, cauda equina, Guillain-Trejo�
MDM/Problems Addressed:
Patient presents with acute weakness of both legs
*Pulse Oximetry
Patient hypoxic: no
*Critical Care Note
Total Time (30-74mins, 75-104mins- exclusive of procedures): Not Applicable
ED Attending Note
-
Portions of this chart may have been created with voice recognition software.� Occasional wrong word or��sound alike� substitutions may have occurred due to the inherent limitations of voice recognition software.
Discharge Plan
Departure
Patient Disposition: Admit
Date of Disposition: 08/13/23
Time of Disposition: 21:17
Admit to: Med/Surg
Presentation/result/management discussed w/ accepting MD/DO: Hospitalist
Patient with high blood pressure during this ER visit?: Yes
Condition: Good
Covid-19: Not Applicable
Discharge Problem:
acute bilateral leg weakness, CHRONIC CHOLEDOCHOLITHIASIS
Prescriptions:
No Action
acetaminophen [Tylenol] 325 mg Tablet
650 mg PO Q4HPRN PRN (Reason: MILD PAIN)
prednisone 10 mg Tablet
20 mg PO DAILY
polyethylene glycol 3350 [Miralax] 17 gram Powder In Packet
17 g PO DAILYPRN PRN (Reason: CONSTIPATION)
amlodipine [Norvasc] 5 mg Tablet
5 mg PO HS
aspirin 81 mg Tablet,Delayed Release (Dr/Ec)
81 mg PO DAILY
magnesium hydroxide [Milk of Magnesia] 400 mg/5 mL Suspension
400 mg PO DAILYPRN PRN (Reason: CONSTIPATION)
bisacodyl [Dulcolax (bisacodyl)] 10 mg Suppository
10 mg NJ DAILYPRN PRN (Reason: CONSTIPATION)
pantoprazole [Protonix] 40 mg Tablet,Delayed Release (Dr/Ec)
40 mg PO DAILY
calcium carbonate [Tums] 200 mg calcium (500 mg) Tablet,Chewable
200 mg PO Q8HPRN PRN (Reason: GERD)
Fleet Enema 19-7 gram/118 mL Enema
118 ml NJ DAILYPRN PRN (Reason: CONSTIPATION)
oxycodone 5 mg Tablet
5 mg PO Q4HPRN PRN (Reason: SEVERE PAINS)
escitalopram oxalate [Lexapro] 10 mg Tablet
10 mg PO HS
rosuvastatin [Crestor] 5 mg Tablet
5 mg PO HS
Referrals:
Geneva James MD [Family Provider] -
Interventions
Interventions:
*Risk Screen - Suicide Last Done: 08/13/23 18:35
*General Assessment Last Done: 08/13/23 17:05
*Neglect/Abuse Screening Last Done: 08/13/23 18:35
*ED COVID-19 Vaccine History Last Done: 08/13/23 17:05
ED-Musculoskeletal Assessment Last Done: 08/13/23 18:35
Discharge Date and Time
Print Language: BURMESE
[2023-08-13 20:34] VITALS: BP 154/75
[2023-08-13 20:43] LABS: % Basophils 0.1 % (0-2); % Immature Granulocytes 0.8 % (0-0.5); % Lymphocytes 10.7 % (20.5-51.1); % Monocytes 5.4 % (1.7-9.3); Absolute Immature Granulocytes 0.1 10^3/uL (0-0.05); Absolute Lymphocytes 1.5 10^3/uL (1.2-3.4); Absolute Monocytes 0.8 10^3/uL (0.1-0.6); Absolute Neutrophils 11.9 10^3/uL (1.4-6.5); Hematocrit 37.4 % (39.0-52.0); Hemoglobin 13.3 g/dL (13.0-18.0); Mean Corp Hgb Conc. 35.6 g/dL (33.0-37.0); Mean Corpuscular Hgb 33.3 pg (27.0-31.0); Mean Corpuscular Volume 93.7 fL (80.0-94.0); Mean Platelet Volume 9.2 fL (7.4-10.4); Nucleated Red Blood Cells % 0 % (-); Platelet Count 265 10^3/uL (130-400); Red Blood Cell Count 3.99 10^6/uL (4.70-6.10); Red Cell Dist. Width 14.6 % (11.5-14.5); White Blood Cell Count 14.4 10^3/uL (4.8-10.8)
[2023-08-13 20:44] LABS: Urine Albumin Trace (Neg - Trace); Urine Bilirubin Negative (Negative); Urine Character Slightly Cloudy (Clear); Urine Color Yellow; Urine Glucose Negative (Negative); Urine Ketone Negative (Negative); Urine Leukocyte 2+ (Negative); Urine Nitrite Positive (Negative); Urine Occult Blood 4+ (Negative); Urine Urobilinogen Negative (Neg - 1+)
[2023-08-13 20:56] LABS: ALT (SGPT) 206 U/L (0-50); AST (SGOT) 194 U/L (17-59); Albumin 3.3 g/dl (3.5-5.0); Alkaline Phosphatase 185 U/L (38-126); Blood Urea Nitrogen 33 mg/dl (9-20); Calcium 9.4 mg/dl (8.4-10.2); Carbon Dioxide 30 mmol/L (22-30); Chloride 99 mmol/L (98-107); Estimated Creatinine Clearance 97 ml/min; Glucose 116 mg/dl (70-99); Potassium 4.7 mmol/L (3.5-5.1); Sodium 133 mmol/L (135-145); Total Bilirubin 0.7 mg/dl (0.2-1.3); Total Protein 6.4 g/dl (6.3-8.2); eGFR > 60.00
[2023-08-13 21:09] LABS: Urine Bacteria Few (Negative); Urine White Cell 16-20 /HPF (0-5); Urine Yeast Moderate (Negative)
[2023-08-13 21:10] LABS: Urine Red Blood Cell 50-60 /HPF (0-2)
--- NOTE | 2023-08-13 22:19 | HPS.HSE ---
Family Physician
-
Family Physician: Geneva James MD
Chief Complaint
-
LE Weakness
History of Present Illness
Patient is a 77y M with PMH significant for ASCVD, hypertension and recent L hip fracture / repair who presents to ED complaining of LE weakness and inability to walk. History obtained from patient and his at the bedside. Patient was
hospitalized here in June for L hip fracture and underwent ORIF on 07/03/23. He had had swelling of the LLE for several months prior to that and had no pain, etc. He was discharged to SNF following his surgery where he has been since that time.
He was initially progressing well; however, about 2 nights ago he sat up in bed and felt a sudden, sharp pain in his lower back. This improved once he returned to a supine position. However, the following day he noted significantly increased
weakness in the LEs. Patient was able to stand with assistance / stand at a walker; however, he was unable to take even a single step.
Last PM, he noted some pain in the R hip / greater trochanter area. Today he had continued weakness in the legs and presented to the ED for further evaluation.
Patient at present denies any significant low back pain, hip pain, radicular pain, etc.
He has had no significant fall / trauma since his recent hospitalization.
Medical History
Past Medical History
Past Medical History: Reports Other
Additional Past Medical History:
ASCVD (CVA, Carotid Disease)
Hypertension
CKD III
GERD
Celiac Disease
Cholelithiasis / Choledocholithiasis
Lumbar DDD
Past Surgical History: Reports Other
Additional Past Surgical History:
Left Hip ORIF (07/03/23)
Left Iliac Vein Stenting
Hernia Repairs
Cataracts
Eye Surgery (in childhood)
Social History
Tobacco: Non-smoker
Alcohol: None
Drug: None
Personal:
Living: With Family
Family History
Family History: Not pertinent
Allergies / Home Medications
Allergies reflects when Allergies were last updated in [facility].
Home Medications with original date entered in [facility]
Allergy/Medication List:
Allergies
Allergy/AdvReac Type Severity Reaction Status Date / Time
gluten Allergy Unknown Verified 08/13/23 17:09
Home Medications
acetaminophen 325 mg tablet (Tylenol) 650 mg PO Q4HPRN PRN MILD PAIN 08/13/23
amlodipine 5 mg tablet (Norvasc) 5 mg PO HS 08/13/23
aspirin 81 mg tablet,delayed release 81 mg PO DAILY 08/13/23
bisacodyl 10 mg rectal suppository (Dulcolax (bisacodyl)) 10 mg UT DAILYPRN PRN CONSTIPATION 08/13/23
calcium carbonate (Tums) 200 mg PO Q8HPRN PRN GERD 08/13/23
escitalopram oxalate 10 mg tablet (Lexapro) 10 mg PO HS 08/13/23
magnesium hydroxide 400 mg/5 mL oral suspension (Milk of Magnesia) 400 mg PO DAILYPRN PRN CONSTIPATION 08/13/23
oxycodone 5 mg tablet 5 mg PO Q4HPRN PRN SEVERE PAINS 08/13/23
pantoprazole 40 mg tablet,delayed release (Protonix) 40 mg PO DAILY 08/13/23
polyethylene glycol 3350 17 gram oral powder packet (Miralax) 17 g PO DAILYPRN PRN CONSTIPATION 08/13/23
prednisone 10 mg tablet 20 mg PO DAILY 08/13/23
rosuvastatin 5 mg tablet 5 mg PO HS 08/13/23
sodium phosphates 19 gram-7 gram/118 mL enema (Fleet Enema) 118 ml UT DAILYPRN PRN CONSTIPATION 08/13/23
Review of Systems
-
History Source: Patient and Family
A 12 point ROS was completed and negative except as noted: Yes
Constitutional: Denies Fever or Chills
Respiratory: Denies Cough or Trouble Breathing
Cardiac: Denies Chest Pain or Palpitations
Abdomen/GI: Reports Constipated; Denies Abdominal Pain, Nausea, Vomiting or Diarrhea
: Denies Dysuria, Frequency or Incontinence
Musculoskeletal: Reports Edema (LLE); Denies Joint Pain, Muscle Pain or Muscle Stiffness
Neurological: Reports Weakness; Denies Dizzy or Headache
Psych: Reports Depression; Denies Anxiety
Physical Exam
Vital Signs
Vital Signs
Temp Pulse Resp BP Pulse Ox
97.9 F 68 14 154/75 99
08/13/23 17:04 08/13/23 20:34 08/13/23 20:34 08/13/23 20:34 08/13/23 20:34
Physical Exam
General: Other (77y M in no distress at rest.)
HEENT: Moist mucous membranes and PERRLA
Respiratory: Clear; No Wheezes, Rales or Rhonchi
Cardiac: S1/S2 and Murmur (II/ MAHI)
GI: Soft, Non Tender, Non Distended and Normal Bowel Sounds
Musculoskeletal: No Clubbing and Other (3+ pitting edema of the LLE. No calf tenderness / cords. Hip incision healing / healed well.)
Neuro: AO x 3 and Other (Some apparent weakness in the LLE compared to the right - likely due to degree of asymmetric edema. Able to stand with assistance, but unable to take even a single step once standing upright.)
Psych: Depressed; No Anxious
Laboratory Results
-
08/13/23 20:29
08/13/23 20:29
Laboratory Results
Total Bilirubin 0.7 mg/dl (0.2-1.3) 08/13/23 20:29
AST 194 U/L (17-59) H 08/13/23 20:29
ALT 206 U/L (0-50) H 08/13/23 20:29
Alkaline Phosphatase 185 U/L (38-126) H 08/13/23 20:
Impression/Plan
-
A/P: Patient is a 77y M with PMH significant for ASCVD, hypertension, lumbar DDD and recent ORIF L hip who presents to ED complaining of increased LE weakness for the past 2 days.
Lumbar DDD with Acute Herniation
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
Bilateral LE Weakness secondary to the above
- Admit for further evaluation and treatment.
- Seems that symptoms progressed following initial back pain / instance of disc herniation 2 nights ago.
- Patient with surprising lack of pain - radicular or otherwise.
- LE weakness which is worse with standing / sitting upright.
- CT shows new disc herniation at L4-5 with R L5 nerve root compression. Central stenosis at L2-5.
- No bowel or bladder incontinence.
- Neurosurgery evaluation. Check MRI in AM for further evaluation.
- PT / OT evaluation.
Left Hip Fracture s/p ORIF
- Stable. Still with significant edema in the LLE compared to the R.
- Multiple recent US have been negative for DVT.
- Continue compression therapy.
- PT / OT as noted above.
ASCVD
- Stable. Continue current med regimen including ASA, statin, etc.
Chronic Cholelithiasis / Choledocholithiasis
- Seen on imaging as early as April 2023.
- Known to GI with plans for outpatient follow-up / eventual ERCP / EUS.
- Has / has had no symptoms of abdominal pain, N/V, etc.
- Follow for any changes.
CKD III
- Stable. Renal function is at / near known baseline.
- Follow for any changes.
DVT Prophylaxis: SCDs
Code Status: Full
[2023-08-13 23:15] VITALS: BP 147/74
[2023-08-13 23:44] VITALS: BP 157/77; BMI 23.2
[2023-08-14] MEDS: NORVASC 5 MG PO (00:51)
[2023-08-14] MEDS: CRESTOR 5 MG PO (00:51)
[2023-08-14] MEDS: LEXAPRO 10 MG PO (00:51)
[2023-08-14] MEDS: SENOKOT PO ×2 (00:52→20:21)
--- NOTE | 2023-08-14 01:00 | PTCARENOTE ---
Pt transferred from ED. Pt slid over into bed with assistance. Pt AAOX3, VSS, able to make needs known. Pt with severe weakness. Pt oriented to unit, call waller within reach, bed in lowest position. Will continue with current plan.
[2023-08-14 06:00] VITALS: BMI 23.2
[2023-08-14 07:22] VITALS: BP 144/74
[2023-08-14 08:44] LABS: Hematocrit 37.9 % (39.0-52.0); Hemoglobin 12.8 g/dL (13.0-18.0); Mean Corp Hgb Conc. 33.8 g/dL (33.0-37.0); Mean Corpuscular Hgb 32.9 pg (27.0-31.0); Mean Corpuscular Volume 97.4 fL (80.0-94.0); Mean Platelet Volume 9.6 fL (7.4-10.4); Platelet Count 245 10^3/uL (130-400); Red Blood Cell Count 3.89 10^6/uL (4.70-6.10); Red Cell Dist. Width 14.7 % (11.5-14.5); White Blood Cell Count 11.6 10^3/uL (4.8-10.8)
[2023-08-14 08:58] LABS: Blood Urea Nitrogen 25 mg/dl (9-20); Calcium 8.8 mg/dl (8.4-10.2); Carbon Dioxide 31 mmol/L (22-30); Chloride 101 mmol/L (98-107); Estimated Creatinine Clearance 97 ml/min; Glucose 84 mg/dl (70-99); Potassium 3.9 mmol/L (3.5-5.1); Sodium 136 mmol/L (135-145); eGFR > 60.00
--- NOTE | 2023-08-14 09:08 | PTCARENOTE ---
assessed patient at beginning of shift, pt aox3, denies pain but states he has little rom/movement to LE. pt assessing/evaluating patient.
[2023-08-14 09:28] VITALS: BP 144/81; PULSE 76
[2023-08-14 09:29] VITALS: BP 144/81; PULSE 76
[2023-08-14] MEDS: DELTASONE 20 MG PO (09:36)
[2023-08-14] MEDS: COLACE 100 MG PO (09:36)
[2023-08-14] MEDS: PROTONIX 40 MG PO (09:36)
[2023-08-14] MEDS: ASPIR LOW (ENTERIC COATED) 81 MG PO (09:36)
[2023-08-14] MEDS: MIRALAX PO (09:52)
--- NOTE | 2023-08-14 10:25 | PTCARENOTE ---
pt oob to chair, patient took meds with sip of water this am, pt denies pain. call waller in reach
--- NOTE | 2023-08-14 10:25 | W.PN.HOSP.TC ---
Addendum entered and electronically signed by Pamela Liu MD 08/14/23 12:35:
# US noted RIGHT LE DVT.
Start empiric Eliquis 10 mg BID for 7 days, then 5 mg BID for 3 months.
Recc outpt repeat US in 2-4 weeks to eval DVT
Informed of finding
Addendum entered and electronically signed by Pamela Liu MD 08/14/23 11:01:
# recent diagnosis of possible PMR (with presentation of inability to lift BL arms) and pt was started with prednisone [address] Goncalves from rehab
Check ESR/CRP
Per , his BL Upper extremities weakness has improved since starting prednisone about 1 week CRYSTAL GROWER
However, does not feel current BL LE weakness is related to PMR given it started acutely after bad positional
For now, cont prednisone 20 mg daily
Recc outpt Rheum eval
DW on the phone
total time spent 51 min
Original Note:
Today's Communication/Plan
-
see A/P
Assessment / Plan
Assessment / Plan
HPI: 77 yo M with PMH significant for ASCVD, hypertension and recent L hip fracture / repair who presented to ED complaining of LE weakness and inability to walk.
History obtained from patient and his at the bedside. Patient was hospitalized here in June for L hip fracture and underwent ORIF on 07/03/23. He had had swelling of the LLE for several months prior to that and had no pain, etc.
He was discharged to SNF following his surgery where he has been since that time. He was initially progressing well; however, about 2 nights CRYSTAL GROWER he sat up in bed and felt a sudden, sharp pain in his lower back. This improved once he returned to a
supine position. However, the following day he noted significant weakness in the LEs. Patient was able to stand with assistance / stand at a walker; however, he was unable to take even a single step.
The night prior admission, he noted some pain in the R hip / greater trochanter area. He continued to have weakness in the legs and presented to the ED for further evaluation.
Patient denies to any significant low back pain, hip pain, radicular pain, etc. He has had no significant fall / trauma since his recent hospitalization.
CT Lumbar spine:
1. SEVERE CENTRAL CANAL STENOSIS and severe right neural foraminal narrowing at L4/L5. NEW MODERATE-SIZED RIGHT SUBARTICULAR INFERIOR DISC EXTRUSION causing severe right lateral recess stenosis and severe descending right L5 nerve root impingement.
2. Moderate to severe canal stenosis and bilateral neural foraminal narrowing at L3/L4.
3. Moderate central canal stenosis at L2/L3.
4. Mild central canal stenosis and severe bilateral neural foraminal narrowing at L5/S1.
5. Severe discogenic degenerative disease at L2/L3 through L5/S1 with mild multilevel retrolistheses.
6. CHOLEDOCHOLITHIASIS and moderate biliary dilatation.
7. Cholelithiasis.
8. Left common iliac vein stents in place.
9. Large amount of fecal material throughout the proximal colon suggesting severe constipation.
A/P:
# Lumbar discogenic degenerative disease with Acute Herniation
# Lumbar Central canal stenosis and Lateral Foraminal Stenosis secondary to the above
# Bilateral LE Weakness secondary to the above
Seems that symptoms progressed following initial back pain / disc herniation 2 nights CRYSTAL GROWER. Patient currently denied to pain- no back pain, no radicular pain.
LE weakness which is worse with standing / sitting upright.
CT shows new disc herniation at L4-5 with R L5 nerve root compression. Central stenosis at L2-5.
No bowel or bladder incontinence.
Neurosurgery evaluation.
Check MRI for further evaluation.
PT / OT evaluation.
# Left Hip Fracture s/p ORIF 07/03/2023 - Stable.
# LLE edema
Still with significant edema in the LLE compared to the R.
Most recent US was from 07/04/23, check repeat BL LE US to r/o DVT
Continue compression therapy.
PT / OT as noted above.
# ASCVD- Stable.
Continue current med regimen including ASA, statin, etc.
# Chronic Cholelithiasis / Choledocholithiasis
Seen on imaging as early as April 2023.
Known to GI with plans for outpatient follow-up / eventual ERCP / EUS.
Has / has had no symptoms of abdominal pain, N/V, etc.
Follow for any changes.
# CKD III- Stable.
Renal function at baseline, with SCr at 0.7
DVT Prophylaxis: SCDs
Code Status: Full
Anticipated Discharge: > 48 hours
Subjective/Interval History
-
Date of Service: August 14, 2023
Objective Data
-
Labs:
Laboratory Results
08/14/23
07:38
WBC 11.6 H
Hgb 12.8 L
Hct 37.9 L
Plt Count 245
Sodium 136
Potassium 3.9
Chloride 101
Carbon Dioxide 31 H
BUN 25 H
Creatinine 0.7
Glucose 84
Calcium 8.8
Vital Signs:
Vital Signs
Temp Pulse Resp BP Pulse Ox
36.3 C 71 18 144/74 98
08/14/23 07:22 08/14/23 07:22 08/14/23 07:22 08/14/23 07:22 08/14/23 07:22
I&O
08/13/23 08/14/23 08/15/23
06:59 06:59 06:59
Output Total 400 / 400
Balance -400 / -400
Review of Systems
-
History Source: Patient
Constitutional: Reports Weakness (lower extremities )
Musculoskeletal: Reports Edema (Left lower extremity out of proportion to the right)
Physical Exam
-
General: Well Developed, No Apparent Distress, Comfortable and Conversant
HEENT: Normocephalic, Atraumatic and Moist Mucous Membranes
Respiratory: Clear to Auscultation and Non Labored Respirations; Negative Accessory Resp Muscle Use
Cardiac: Regular Rhythm and S1/S2; Negative Murmur, Rub or Gallop
GI: Soft, Nontender, Nondistended and Normal Bowel Sounds; Negative Organomegaly
Rectal: Deferred by Provider
Musculoskeletal: No Clubbing, No Cyanosis and Edema, Left Lower Extrem
Skin: Negative Rash
Neuro: Awake and Alert
Psych: Calm and Intact Judgement/Insight
Data Reviewed
-
CT Scan: Report Reviewed by me
Labs: Labs Reviewed by me
[2023-08-14 11:39] LABS: Erythrocyte Sed Rate 23 mm/hour (0-20)
[2023-08-14] MEDS: ELIQUIS 10 MG PO (15:11)
[2023-08-14] MEDS: MIRALAX 17 GRAMS PO (15:11)
--- NOTE | 2023-08-14 15:38 | CM ---
Alert awake oriented patient who has been at [facility] [place] for rehab. Spoke with his Christina.Normally lives in a 2 story home with 3 step to enter and bed and bathroom on first floor. He is assisted in all activities of daily living.AWife would
like to wait for another PT session before placing following SNF in care port:[facility] [place],[facility] .
NO VN hx /[facility] [place] SNF history
Pharmacy Anders
PCP DR Fox
PLAN Probable Rehab
[2023-08-14 16:56] VITALS: BP 128/72
--- NOTE | 2023-08-14 17:44 | CON.NS ---
Chief Complaint
-
back pain, difficulty ambulating
History of Present Illness
This is a 77 yo male with CC of LBP with inability to ambulate. He notes that 2 days ago he had severe LBP which started insidiously. He states that he is unable to ambulate due to his LBP. He states that his pain worsens significantly when
attempting to stand upright. He notes chronic left LE swelling which occurred when he fractured his hip. He denies any radicular pain. His pain improves with sitting or laying.
Review of Systems
-
10 pt ROS completed and neg except as stated
Medication and Allergies
Home Medications
Home Medications
�Medication �Instructions �Recorded
acetaminophen 325 mg tablet 650 mg PO Q4HPRN PRN MILD PAIN 08/13/23
(Tylenol)
amlodipine 5 mg tablet (Norvasc) 5 mg PO HS Blood Pressure 08/13/23
aspirin 81 mg tablet,delayed 81 mg PO DAILY Blood Clot 08/13/23
release Prevention/Tx
bisacodyl 10 mg rectal suppository 10 mg SD DAILYPRN PRN CONSTIPATION 08/13/23
(Dulcolax (bisacodyl))
calcium carbonate (Tums) 200 mg PO Q8HPRN PRN GERD 08/13/23
escitalopram oxalate 10 mg tablet 10 mg PO HS Depression 08/13/23
(Lexapro)
magnesium hydroxide 400 mg/5 mL 400 mg PO DAILYPRN PRN CONSTIPATION 08/13/23
oral suspension (Milk of Magnesia)
oxycodone 5 mg tablet 5 mg PO Q4HPRN PRN SEVERE PAINS 08/13/23
pantoprazole 40 mg tablet,delayed 40 mg PO DAILY Gastrointestinal 08/13/23
release (Protonix) Issue
polyethylene glycol 3350 17 gram 17 g PO DAILYPRN PRN CONSTIPATION 08/13/23
oral powder packet (Miralax)
prednisone 10 mg tablet 20 mg PO DAILY Anti-Inflammatory 08/13/23
rosuvastatin 5 mg tablet 5 mg PO HS High Cholesterol 08/13/23
sodium phosphates 19 gram-7 118 ml SD DAILYPRN PRN CONSTIPATION 08/13/23
gram/118 mL enema (Fleet Enema)
Allergies
Allergies
Allergy/AdvReac Type Severity Reaction Status Date / Time
gluten Allergy Unknown Verified 08/13/23 17:09
Physical Exam
-
Exam:
AAOx3
appears disheveled
CN's intact
5/5 UE strenght
LE strength reveal b/l HF weakness 3-4/5
Right LE he has 5/5 KE,TA,EHL,PF
Left LE he has 4/5 KE, 3/5 TA/EHL(patient states is old), and 5/5 PF
sensation is intact and normal
left LE pitting edema
MRI lumbar spine shows multi level degen changes, no major central stenosis in visualized spine, there is varying levels of NFS: This MRI appears stable to the prior from 04/28/23.
Assessment / Plan
-
Lumbar spondylosis,Low back pain, difficulty ambulating
-I suspect that this his back pain is multifactorial: related to his lumbar spondylosis, muscle sprain/strain, deconditioning
There are no surgical needs at this time
-Recommend oral pain control with muscle relaxants, tapering steroid course, and prn narcotics
-Pt/OT evals
-we will sign off, please reconsult prn
[2023-08-14] MEDS: COLACE PO (20:20)
[2023-08-14] MEDS: COREG 3.125 MG PO (20:22)
[2023-08-14 23:31] VITALS: BP 156/84
[2023-08-15] MEDS: LEXAPRO 10 MG PO ×2 (00:02→22:17)
[2023-08-15] MEDS: CRESTOR 5 MG PO ×2 (00:02→22:16)
[2023-08-15] MEDS: ELIQUIS 10 MG PO ×3 (00:03→20:48)
[2023-08-15 06:00] VITALS: BMI 23.1
[2023-08-15 06:21] LABS: Hematocrit 37.3 % (39.0-52.0); Hemoglobin 12.8 g/dL (13.0-18.0); Mean Corp Hgb Conc. 34.3 g/dL (33.0-37.0); Mean Corpuscular Hgb 32.6 pg (27.0-31.0); Mean Corpuscular Volume 94.9 fL (80.0-94.0); Mean Platelet Volume 9.6 fL (7.4-10.4); Platelet Count 267 10^3/uL (130-400); Red Blood Cell Count 3.93 10^6/uL (4.70-6.10); Red Cell Dist. Width 14.5 % (11.5-14.5); White Blood Cell Count 13.4 10^3/uL (4.8-10.8)
[2023-08-15 06:43] LABS: Blood Urea Nitrogen 32 mg/dl (9-20); Calcium 9.1 mg/dl (8.4-10.2); Carbon Dioxide 30 mmol/L (22-30); Chloride 100 mmol/L (98-107); Estimated Creatinine Clearance 97 ml/min; Glucose 87 mg/dl (70-99); Potassium 4.3 mmol/L (3.5-5.1); Sodium 135 mmol/L (135-145); eGFR > 60.00
[2023-08-15 07:35] VITALS: BP 147/73
[2023-08-15] MEDS: MIRALAX 17 GRAMS PO (07:48)
[2023-08-15] MEDS: COLACE 100 MG PO ×2 (07:52→20:48)
[2023-08-15] MEDS: ASPIR LOW (ENTERIC COATED) 81 MG PO (07:52)
[2023-08-15] MEDS: DELTASONE 20 MG PO (07:52)
[2023-08-15] MEDS: PROTONIX 40 MG PO (07:52)
[2023-08-15] MEDS: COREG 3.125 MG PO ×2 (07:53→20:48)
--- NOTE | 2023-08-15 10:27 | W.PN.HOSP.TC ---
Today's Communication/Plan
-
see A/P
Assessment / Plan
Assessment / Plan
HPI: 77 yo M with PMH significant for ASCVD, hypertension and recent L hip fracture / repair who presented to ED complaining of LE weakness and inability to walk.
History obtained from patient and his at the bedside. Patient was hospitalized here in June for L hip fracture and underwent ORIF on 07/03/23. He had had swelling of the LLE for several months prior to that and had no pain, etc.
He was discharged to SNF following his surgery where he has been since that time. 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 This improved once he returned to a
supine position. However, the following day he noted significant weakness in the LEs. Patient was able to stand with assistance / stand at a walker; however, he was unable to take even a single step.
The night prior admission, he noted some pain in the R hip / greater trochanter area. He continued to have weakness in the legs and presented to the ED for further evaluation.
Patient denies to any significant low back pain, hip pain, radicular pain, etc. He has had no significant fall / trauma since his recent hospitalization.
CT Lumbar spine:
1. SEVERE CENTRAL CANAL STENOSIS and severe right neural foraminal narrowing at L4/L5. NEW MODERATE-SIZED RIGHT SUBARTICULAR INFERIOR DISC EXTRUSION causing severe right lateral recess stenosis and severe descending right L5 nerve root impingement.
2. Moderate to severe canal stenosis and bilateral neural foraminal narrowing at L3/L4.
3. Moderate central canal stenosis at L2/L3.
4. Mild central canal stenosis and severe bilateral neural foraminal narrowing at L5/S1.
5. Severe discogenic degenerative disease at L2/L3 through L5/S1 with mild multilevel retrolistheses.
6. CHOLEDOCHOLITHIASIS and moderate biliary dilatation.
7. Cholelithiasis.
8. Left common iliac vein stents in place.
9. Large amount of fecal material throughout the proximal colon suggesting severe constipation.
MRI lumbar spine;
1. SEVERE DISCOGENIC DEGENERATIVE DISEASE at L2/L3, L3/L4, and L5/S1.
2. Moderate discogenic degenerative disease at L4/L5.
3. MODERATE CENTRAL CANAL STENOSIS at L3/L4 and L4/L5 which appears to have increased at the L4/L5 level since 04/28/2023.
4. Mild central canal stenosis and moderate left lateral recess stenosis at L2/L3 which is not definitively changed.
5. Mild retrolistheses of L2 on L3, L3 on L4, and L4 on L5 which appear unchanged.
6. Severe Baastrup's disease between the L3, L4, and L5 spinous processes which is unchanged.
7. Moderate to severe chronic bilateral renal disease.
8. CHOLEDOCHOLITHIASIS and mild biliary dilatation which is unchanged.
A/P:
# Lumbar discogenic degenerative disease with Acute Herniation
# Lumbar Central canal stenosis and Lateral Foraminal Stenosis secondary to the above
# Bilateral LE Weakness secondary to the above
Seems that symptoms progressed following initial back pain / disc herniation 2 nights FINANCIAL ASSISTANCE ADVISOR. Patient currently denied to pain- no back pain, no radicular pain.
LE weakness which is worse with standing / sitting upright.
CT shows new disc herniation at L4-5 with R L5 nerve root compression. Central stenosis at L2-5.
No bowel or bladder incontinence.
MRI unrevealing, confirmed lumbar DDD
Appreciate Neurosurgery evaluation.
PT / OT recc SNF
# Left Hip Fracture s/p ORIF 07/03/2023 - Stable.
# LLE edema
Still with significant edema in the LLE compared to the R.
BL LE US this admission actually showed RIGHT DVT of the posterior tibial vein
Start empiric Eliquis 10 mg BID x7 days, then 5 mg BID for 3 months
Informed to repeat US in 4 weeks after discharge to evaluate DVT
PT / OT as noted above.
# recent diagnosis of possible PMR (with presentation of inability to lift BL arms) and pt was started with prednisone [address] Palatt from rehab
# Mild leucocytosis likely due to steroid
ESR/CRP in the 20's
Per , his BL Upper extremities weakness has improved since starting prednisone about 1 week FINANCIAL ASSISTANCE ADVISOR
However, does not feel current BL LE weakness is related to PMR given it started acutely after bad body positioning/maneuver
cont FINANCIAL ASSISTANCE ADVISOR prednisone 20 mg daily, Recc outpt Rheum eval
# ASCVD- Stable.
Continue current med regimen including ASA, statin, etc.
# Chronic Cholelithiasis / Choledocholithiasis
Seen on imaging as early as April 2023.
Known to GI with plans for outpatient follow-up / eventual ERCP / EUS.
Has / has had no symptoms of abdominal pain, N/V, etc.
Follow for any changes.
# CKD III- Stable.
Renal function at baseline, with SCr at 0.7
DVT Prophylaxis: Eliquis
Code Status: Full
updated on the phone, discussed extensively
DW CM
total time spent 51 min
Anticipated Discharge: 24 - 48 hours
Subjective/Interval History
-
Date of Service: August 15, 2023
Objective Data
-
Labs:
Laboratory Results
08/15/23
05:47
WBC 13.4 H
Hgb 12.8 L
Hct 37.3 L
Plt Count 267
Sodium 135
Potassium 4.3
Chloride 100
Carbon Dioxide 30
BUN 32 H
Creatinine 0.7
Glucose 87
Calcium 9.1
Vital Signs:
Vital Signs
Temp Pulse Resp BP Pulse Ox
36.5 C 67 18 147/73 99
08/14/23 23:31 08/15/23 07:53 08/14/23 23:31 08/15/23 07:53 08/14/23 23:31
I&O
06/01/24 06/02/24 06/03/24
06:59 06:59 06:59
Intake Total 360 / 360
Output Total 400 / 400 700 / 700
Balance -400 / -400 -340 / -340
Review of Systems
-
Musculoskeletal: Reports Other (weakness/unable to stand/walk)
Physical Exam
-
General: Well Developed, No Apparent Distress, Comfortable and Conversant
HEENT: Normocephalic, Atraumatic and Moist Mucous Membranes
Respiratory: Clear to Auscultation and Non Labored Respirations; Negative Accessory Resp Muscle Use
Cardiac: Regular Rhythm and S1/S2; Negative Murmur, Rub or Gallop
GI: Soft, Nontender, Nondistended and Normal Bowel Sounds; Negative Organomegaly
Rectal: Deferred by Provider
Musculoskeletal: No Clubbing, No Cyanosis and Edema, Left Lower Extrem
Skin: Negative Rash
Neuro: Awake and Alert
Psych: Calm and Intact Judgement/Insight
Data Reviewed
-
CT Scan: Report Reviewed by me
MRI: Report Reviewed by me and Discussed with Family
Labs: Labs Reviewed by me
--- NOTE | 2023-08-15 11:21 | W.PN.UPDATE ---
Update Note
Progress Note Update
MRI Lspine doesnt explain symptoms
obtain MRI Thoracic and MRi pelvis
[2023-08-15 12:45] VITALS: BMI 23.1
--- NOTE | 2023-08-15 12:45 | CON.NEURO ---
Neuro Assessment/Plan
Assessment
IMPRESSIONS/RECOMMENDATIONS:
Abrupt change in ambulation associated with sudden back pain
Also experiencing difficulty with lifting shoulders, dysphagia, diplopia
Plan
check blood work for acetylcholine receptor antibodies
start pyridostigmine 60 mg 4x/day
check blood work for potential causes
will follow MRI of thoracic spine results
Rehabilitation evaluations and treatment
Will continue to follow patient. Thank you.
Consultation
Order
Date of Consultation: 08/15/23
Requesting Provider: Hospitalist
Reason for Consult: Weakness in LEs
Subjective/Objective
Subjective Data
Date of Service: August 15, 2023
Adapted from my esteemed colleagues' consultation in 2018:
Reason for Consultation: right leg weakness
This is a 71 year old male who has presented to the hospital with right leg weakness. Patient's symptoms began today while at the grocery store at noon. He was bending over reading a newspaper and he became lightheaded and noticed his right leg
'was not working and would not go'. He felt it was weak but denies any numbness or tingling. He attempted to walk and hobbled to a shopping cart. The leg weakness resolved in less than 1 minute. He was able to then walk to his car and was leaning to
the right while walking. He sat in the car for 15 minutes and felt better so drove home. His walking was then back to normal but he still felt lightheaded and foggy in the head so he called his PCP who told him to go to the ER. He denies any arm
involvement, vision changes, or speech changes. He currently remains asymptomatic. He is not on any blood thinners or antiplatelets. He denies any prior similar episodes in the past and denies a personal history of a stroke.
Neuro Imaging: Ct head neg
Diagnosis:
1. 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 Most likely etiology of this stroke would be atherothrombotic.
2. Occlusion of the left internal carotid artery
3. Hyperlipidemia
Recommendations:
1. Please continue with aspirin 81 mg by mouth daily.
2. Continue with anticoagulation per vascular surgery recommendations. Since patient's infarct is very small in size, anti-coagulation does not need to be delayed or withheld.
3. Please increase the dose of atorvastatin to 80 mg by mouth daily at bedtime.
4. Blood pressure management per the primary team; goal blood pressure for him would be normotensive.
5. DVT prophylaxis
6. Please follow vascular surgery recommendations for management of his internal carotid artery occlusion on the left side
7. Rest of the management can continue per the primary team
8. Outpatient follow-up with neurology at 90 days after occurrence of this event
~~~~
On August 13, 2023, patient returned to this hospital's emergency department from rehabilitation with inability to stand without support this problem began 2 days after experiencing a transient sharp pain in his low back while sitting up. The patient
had a recent left hip surgery after fracture and had been receiving rehabilitation.
The following morning he experienced severe back pain again and less mobility.
The patient at the time of presentation reported no significant back pain or sensory changes. He also reported no bowel or bladder incontinence.
Since hospitalization, patient was evaluated by neurosurgery who found no structural abnormalities producing symptomatology by review of MRI of lumbar spine which was performed and compared with a prior study performed in April 2023. Patient with
sense of dragging left foot.
Bilateral arm weakness started then diagnosed with PMR and started on steroids 1 week prior to hospitalization.
Objective Data
Vital Signs
Temp Pulse Resp BP Pulse Ox
36.4 C 67 20 147/73 99
08/15/23 07:35 08/15/23 07:53 08/15/23 07:35 08/15/23 07:53 08/15/23 07:35
Lab Results
08/15/23 05:47
08/15/23 05:47
Sodium 135 mmol/L (135-145) 08/15/23 05:47
Potassium 4.3 mmol/L (3.5-5.1) 08/15/23 05:47
BUN 32 mg/dl (9-20) H 08/15/23 05:47
Glucose 87 mg/dl (70-99) 08/15/23 05:47
Calcium 9.1 mg/dl (8.4-10.2) 08/15/23 05:47
Patient Allergies
gluten Allergy (Verified 08/13/23 17:09)
Unknown
Review of Systems
-
History Source: Patient and Family
All other systems: Reviewed and negative
EENT: Swallowing Difficulty (daily x 2 weeks) and Other (diplopia); Negative Decreased Vision
Respiratory: Negative Trouble Breathing
Cardiac: Negative Chest Pain
Abdomen/GI: Negative Incontinence of Stool
Genitourinary: Negative Incontinence
Musculoskeletal: Back Pain (central low, aching); Negative Neck Pain
Neuro: Negative Dizzy or Headache
Physical Exam
-
General: No Apparent Distress and Appears Stated Age
Eyes: OU Absent Papilledema, Round OU, [place] Conjunctivae and No Ptosis
HEENT: Anicteric and Moist Mucous Membranes
Neck: Full Range of Motion
Respiratory: No Dyspnea
Cardiac: No JVD
GI: Non-distended
Skin: Unremarkable
Extremities: No Clubbing, No Cyanosis and Edema +2 (in left leg)
Psych: Intact Judgement/Insight
Extended Neurological Exam
Mood & Affect: Mood Unremarkable and Affect Unremarkable
Attention Span & Concentration: Awake, Alert, Interactive and No Difficulty with 2 Step Request
Memory: Unremarkable
Tremor: Hand Tremor Absent and Head Tremor Absent
Speech: Quality Unremarkable and Quantity Unremarkable
Cranial Nerve II: Left Eye: Pupillary Reactivity Unremarkable, Pupillary Size Unremarkable and Visual [place] Intact
Cranial Nerve II: Right Eye: Pupillary Reactivity Unremarkable, Pupillary Size Unremarkable and Visual [place] Intact
Cranial Nerves III, IV, : Extraocular Movement: Extraocular Movement Full in all Directions and Other (Mild left eye upgaze restriction with prolonged upgaze)
Cranial Nerve VII: Facial Symmetry: Normal Facial Symmetry
Cranial Nerve VIII: Hearing: Unremarkable Hearing to Normal Conversational Volume
Cranial Nerves IX, X: Palate Movement: Palate Elevation Symmetric
Cranial Nerve XI: Shoulder Shrug: Reduced on Right and Reduced on Left
Cranial Nerve XII: Tongue Protusion: Midline
Muscle Strength, Overall: Full Throughout, Reduced (Bilateral hip flexors 4- out of 5 equally; full right foot dorsiflexion, 4- out of 5 left foot dorsiflexion) and Other (Intact neck flexors and extensors)
Muscle Bulk & Tone: Bulk Unremarkable and Tone Unremarkable
Pronator Drift: No Drift in Upper Extremities
Deep Tendon Reflexes: Other (Present at right patella otherwise absent)
Cold Sensation: Unremarkable
Touch Sensation: Unremarkable
Coordination: Egsslo-itjy-sdhmth Testing Unremarkable and Unable to Assess (Sonq-ibhq-hrhj movements bilaterally)
Babinski Sign: Absent Bilaterally
Gait & Station: Unable to Assess
Data Reviewed
-
Labs: Report Reviewed
Reviewed with: Physician, Patient and Family
Old Records: Summarized
Medications
-
Active Medications
Generic Name Dose Route Start Last Admin
Trade Name Freq PRN Reason Stop Dose Admin
Acetaminophen 650 mg 08/13/23 23:32
Acetaminophen 325 Mg Tablet PO 09/10/23 23:31
Q4HPRN PRN
Mild Pain / Temp > 101
Apixaban 10 mg 08/14/23 12:30 08/15/23 07:52
Apixaban (Eliquis) 5 Mg Tablet PO 08/21/23 12:29 10 mg
BID BALWINDER Administration
Apixaban 5 mg 08/21/23 07:00
Apixaban (Eliquis) 5 Mg Tablet PO 09/18/23 06:59
BID BALWINDER
Aspirin 81 mg 08/14/23 08:00 08/15/23 07:52
Aspirin 81 Mg (Enteric Coated) Tablet PO 09/11/23 07:59 81 mg
DAILY BALWINDER Administration
Carvedilol 3.125 mg 08/14/23 20:00 08/15/23 07:53
Carvedilol 3.125 Mg Tablet PO 09/11/23 19:59 3.125 mg
BID BALWINDER Administration
Docusate Sodium 100 mg 08/14/23 08:00 08/15/23 07:52
Docusate Sodium 100 Mg Capsule PO 09/11/23 07:59 100 mg
BID BALWINDER Administration
Escitalopram Oxalate 10 mg 08/14/23 01:00 08/15/23 00:02
Escitalopram 10 Mg Tablet PO 09/11/23 00:59 10 mg
HS BALWINDER Administration
Morphine Sulfate 2 mg 08/13/23 23:32
Morphine 2 Mg/Ml Syringe IV 08/27/23 23:31
Q4HPRN PRN
Severe Pain
Oxycodone HCl 5 mg 08/13/23 23:32
Oxycodone 5 Mg Regular Release Tablet PO 08/27/23 23:31
Q4HPRN PRN
Moderate Pain
Pantoprazole Sodium 40 mg 08/14/23 08:00 08/15/23 07:52
Pantoprazole 40 Mg Delayed Release Tablet PO 09/11/23 07:59 40 mg
DAILY BALWINDER Administration
Polyethylene Glycol 17 grams 08/14/23 08:00 08/15/23 07:48
Polyethylene Glycol Powder 17 Grams Packet PO 09/11/23 07:59 17 grams
DAILY BALWINDER Administration
Prednisone 20 mg 08/14/23 08:00 08/15/23 07:52
Prednisone 20 Mg Tablet PO 09/11/23 07:59 20 mg
DAILY BALWINDER Administration
Prochlorperazine Edisylate 5 mg 08/13/23 23:32
Prochlorperazine 10 Mg/2 Ml Vial IV 09/10/23 23:31
Q6HPRN PRN
Nausea
Rosuvastatin Calcium 5 mg 08/14/23 01:00 08/15/23 00:02
Rosuvastatin (Crestor) 5 Mg Tablet PO 09/11/23 00:59 5 mg
HS BALWINDER Administration
Sennosides 17.2 mg 08/14/23 01:00 08/14/23 20:21
Sennosides (Senokot) 8.6 Mg Tablet PO 09/11/23 00:59 Not Given
HS BALWINDER
Sodium Chloride 0 flush 08/13/23 23:00
Sodium Chloride 0.9% (Flush) Syringe IV 09/10/23 22:59
PER PROTOCOL BALWINDER
Home Medications
�Medication �Instructions �Recorded
acetaminophen 325 mg tablet 650 mg PO Q4HPRN PRN MILD PAIN 08/13/23
(Tylenol)
amlodipine 5 mg tablet (Norvasc) 5 mg PO HS Blood Pressure 08/13/23
aspirin 81 mg tablet,delayed 81 mg PO DAILY Blood Clot 08/13/23
release Prevention/Tx
bisacodyl 10 mg rectal suppository 10 mg MN DAILYPRN PRN CONSTIPATION 08/13/23
(Dulcolax (bisacodyl))
calcium carbonate (Tums) 200 mg PO Q8HPRN PRN GERD 08/13/23
escitalopram oxalate 10 mg tablet 10 mg PO HS Depression 08/13/23
(Lexapro)
magnesium hydroxide 400 mg/5 mL 400 mg PO DAILYPRN PRN CONSTIPATION 08/13/23
oral suspension (Milk of Magnesia)
oxycodone 5 mg tablet 5 mg PO Q4HPRN PRN SEVERE PAINS 08/13/23
pantoprazole 40 mg tablet,delayed 40 mg PO DAILY Gastrointestinal 08/13/23
release (Protonix) Issue
polyethylene glycol 3350 17 gram 17 g PO DAILYPRN PRN CONSTIPATION 08/13/23
oral powder packet (Miralax)
prednisone 10 mg tablet 20 mg PO DAILY Anti-Inflammatory 08/13/23
rosuvastatin 5 mg tablet 5 mg PO HS High Cholesterol 08/13/23
sodium phosphates 19 gram-7 118 ml MN DAILYPRN PRN CONSTIPATION 08/13/23
gram/118 mL enema (Fleet Enema)
Past History
Past History
ED Past Medical History: CVA (2018), GERD, HTN, Hypercholesterolemia and Other (Vitamin B12, vitamin D, adenomatous polyp, cholelithiasis); Negative Renal failure (CKD 3)
ED Past Surgical History: Orthopedic (left hip ORIF 06/2023) and Other (Hernia, cataract surgery, bilateral cataract surgery, left leg stent)
Social History
Tobacco: Non-smoker
Alcohol: None
Drug: None
Personal:
Living: with family
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
Family History
Family History: Early CAD
[2023-08-15 15:39] VITALS: BP 155/78
[2023-08-15 15:51] LABS: TSH Reflex To Free T4 2.29 uIU/ml (0.47-4.68)
[2023-08-15 16:27] LABS: Folate 2.7 ng/ml (2.76-20); Vitamin B12 249 pg/ml (239-931)
[2023-08-15 16:38] LABS: Erythrocyte Sed Rate 27 mm/hour (0-20)
[2023-08-15] MEDS: VITAMIN B-12 1000 MCG PO (17:04)
[2023-08-15] MEDS: FOLVITE 0.400000000000000022 MG PO (17:04)
[2023-08-15] MEDS: MESTINON 60 MG PO ×2 (17:04→22:16)
[2023-08-15] MEDS: SENOKOT PO (22:19)
[2023-08-15 23:48] VITALS: BP 147/76
[2023-08-16 06:00] VITALS: BMI 23.1
[2023-08-16 07:24] LABS: Hematocrit 38.3 % (39.0-52.0); Mean Corp Hgb Conc. 33.9 g/dL (33.0-37.0); Mean Corpuscular Hgb 33.3 pg (27.0-31.0); Mean Corpuscular Volume 98.2 fL (80.0-94.0); Mean Platelet Volume 9.9 fL (7.4-10.4); Platelet Count 232 10^3/uL (130-400); Red Cell Dist. Width 14.8 % (11.5-14.5); White Blood Cell Count 13.2 10^3/uL (4.8-10.8)
[2023-08-16 07:40] LABS: Blood Urea Nitrogen 33 mg/dl (9-20); Calcium 8.8 mg/dl (8.4-10.2); Carbon Dioxide 32 mmol/L (22-30); Chloride 99 mmol/L (98-107); Estimated Creatinine Clearance 96 ml/min; Glucose 84 mg/dl (70-99); Potassium 4.1 mmol/L (3.5-5.1); Sodium 135 mmol/L (135-145); eGFR > 60.00
[2023-08-16 07:43] VITALS: BP 141/76
[2023-08-16] MEDS: VITAMIN B-12 1000 MCG PO (08:29)
[2023-08-16] MEDS: PROTONIX 40 MG PO (08:29)
[2023-08-16] MEDS: ASPIR LOW (ENTERIC COATED) 81 MG PO (08:29)
[2023-08-16] MEDS: ELIQUIS 10 MG PO ×2 (08:29→19:57)
[2023-08-16] MEDS: COREG 3.125 MG PO ×2 (08:29→19:57)
[2023-08-16] MEDS: COLACE 100 MG PO ×2 (08:29→19:59)
[2023-08-16] MEDS: MESTINON 60 MG PO ×4 (08:29→21:51)
[2023-08-16] MEDS: DELTASONE 20 MG PO (08:30)
[2023-08-16] MEDS: FOLVITE 0.400000000000000022 MG PO (08:30)
[2023-08-16] MEDS: MIRALAX PO ×2 (08:30→08:35)
[2023-08-16] MEDS: FLUSH (NSS) 1 FLUSH IV (08:31)
[2023-08-16 08:43] VITALS: BP 141/76
--- NOTE | 2023-08-16 09:36 | W.PN.HOSP.TC ---
Addendum entered and electronically signed by Pamela Liu MD 08/16/23 16:46:
# Moderate Malnutrition in the context of social circumstances
# Acute DEEP VENOUS THROMBOSIS in the RIGHT POSTERIOR TIBIAL VEIN
# Spinal cord compression in cervical spine is NOT a valid diagnosis for this patient
Addendum entered and electronically signed by Pamela Liu MD 08/16/23 13:18:
# Possible UTI
Urine culture positive for Klebsiella
Will start empiric Ceftriaxone,
Could his BL LE weakness be due to UTI?
Pt did NOT complain of dysuria but may have urinary frequency
Original Note:
Today's Communication/Plan
-
see A/P
Assessment / Plan
Assessment / Plan
HPI: 77 yo M with PMH significant for ASCVD, hypertension and recent L hip fracture / repair who presented to ED complaining of LE weakness and inability to walk.
History obtained from patient and his at the bedside. Patient was hospitalized here in June for L hip fracture and underwent ORIF on 07/03/23. He had had swelling of the LLE for several months prior to that and had no pain, etc.
He was discharged to SNF following his surgery where he has been since that time. He was initially progressing well; however, about 2 nights GI ASST he sat up in bed and felt a sudden, sharp pain in his lower back. This improved once he returned to a
supine position. However, the following day he noted significant weakness in the LEs. Patient was able to stand with assistance / stand at a walker; however, he was unable to take even a single step.
The night prior admission, he noted some pain in the R hip / greater trochanter area. He continued to have weakness in the legs and presented to the ED for further evaluation.
Patient denies to any significant low back pain, hip pain, radicular pain, etc. He has had no significant fall / trauma since his recent hospitalization.
CT Lumbar spine:
1. SEVERE CENTRAL CANAL STENOSIS and severe right neural foraminal narrowing at L4/L5. NEW MODERATE-SIZED RIGHT SUBARTICULAR INFERIOR DISC EXTRUSION causing severe right lateral recess stenosis and severe descending right L5 nerve root impingement.
2. Moderate to severe canal stenosis and bilateral neural foraminal narrowing at L3/L4.
3. Moderate central canal stenosis at L2/L3.
4. Mild central canal stenosis and severe bilateral neural foraminal narrowing at L5/S1.
5. Severe discogenic degenerative disease at L2/L3 through L5/S1 with mild multilevel retrolistheses.
6. CHOLEDOCHOLITHIASIS and moderate biliary dilatation.
7. Cholelithiasis.
8. Left common iliac vein stents in place.
9. Large amount of fecal material throughout the proximal colon suggesting severe constipation.
MRI lumbar spine;
1. SEVERE DISCOGENIC DEGENERATIVE DISEASE at L2/L3, L3/L4, and L5/S1.
2. Moderate discogenic degenerative disease at L4/L5.
3. MODERATE CENTRAL CANAL STENOSIS at L3/L4 and L4/L5 which appears to have increased at the L4/L5 level since 04/28/2023.
4. Mild central canal stenosis and moderate left lateral recess stenosis at L2/L3 which is not definitively changed.
5. Mild retrolistheses of L2 on L3, L3 on L4, and L4 on L5 which appear unchanged.
6. Severe Baastrup's disease between the L3, L4, and L5 spinous processes which is unchanged.
7. Moderate to severe chronic bilateral renal disease.
8. CHOLEDOCHOLITHIASIS and mild biliary dilatation which is unchanged.
A/P:
# Lumbar discogenic degenerative disease with Acute Herniation
# Lumbar Central canal stenosis and Lateral Foraminal Stenosis secondary to the above
# Bilateral LE Weakness secondary to the above
Seems that symptoms progressed following initial back pain / disc herniation 2 nights GI ASST. Patient currently denied to pain- no back pain, no radicular pain.
LE weakness was worse with standing / sitting upright.
No bowel or bladder incontinence.
CT shows new disc herniation at L4-5 with R L5 nerve root compression. Central stenosis at L2-5.
MRI lumbar spine also unrevealing, confirmed lumbar DDD
Appreciate Neurosurgery evaluation- no surgery indicated
Due to persistent weakness, will check Thoracic MRI.
Neuro was consulted. ACh receptor Ab ordered by neuro, and empiric Pyridostigmine started. Neuro to direct Pyridostigmine dose.
Check EMG.
CPK level also noted high at 1300, hence cannot r/o statin induced myopathy, will hold statin/Crestor and give gentle IVF 500 cc, follow CPK level.
PT / OT recc SNF
# Left Hip Fracture s/p ORIF 07/03/2023 - Stable
# LLE edema
Still with significant edema in the LLE compared to the R.
BL LE US this admission actually showed RIGHT DVT of the posterior tibial vein
Started empiric Eliquis 10 mg BID x7 days, then 5 mg BID for 3 months
Informed to repeat LE US in 4 weeks after discharge to evaluate DVT
PT / OT as noted above.
# recent diagnosis of possible PMR (with presentation of inability to lift BL arms) and pt was started with prednisone [address] Goncalves from rehab
# Mild leucocytosis likely due to steroid
ESR/CRP in the 's
Per , his BL Upper extremities weakness has improved since initiation of prednisone about 1 week GI ASST
However, does not feel current BL LE weakness is related to PMR given it started acutely after bad body positioning/maneuver
cont GI ASST prednisone 20 mg daily
Recc outpt Rheum eval- informed
# ASCVD- Stable.
Continue current med regimen including ASA, etc.
# Chronic Cholelithiasis / Choledocholithiasis
Seen on imaging as early as April 2023.
Known to GI with plans for outpatient follow-up / eventual ERCP/EUS.
Has / has had no symptoms of abdominal pain, N/V, etc.
Follow for any changes.
# CKD III- Stable.
Renal function at baseline, with SCr at 0.7
DVT Prophylaxis: Eliquis
Code Status: Full
DW Neuro
updated on the phone, discussed extensively.
total time spent 51 min.
Anticipated Discharge: > 48 hours
Subjective/Interval History
-
Date of Service: August 16, 2023
Objective Data
-
Labs:
Laboratory Results
08/16/23
06:21
WBC 13.2 H
Hgb 13.0
Hct 38.3 L
Plt Count 232
Sodium 135
Potassium 4.1
Chloride 99
Carbon Dioxide 32 H
BUN 33 H
Creatinine 0.7
Glucose 84
Calcium 8.8
Vital Signs:
Vital Signs
Temp Pulse Resp BP Pulse Ox
36.9 C 98 20 141/76 97
08/16/23 07:43 08/16/23 07:43 08/16/23 07:43 08/16/23 08:29 08/16/23 07:43
I&O
08/15/23 08/16/23 08/17/23
06:59 06:59 06:59
Intake Total 360 / 360 400 / 400
Output Total 700 / 700 1100 / 1100
Balance -340 / -340 -700 / -700
Review of Systems
-
Musculoskeletal: Reports Other (BL LE weakness has improved. Able to stand and briefly walk with a walker )
Physical Exam
-
General: Well Developed, No Apparent Distress, Comfortable and Conversant
HEENT: Normocephalic, Atraumatic and Moist Mucous Membranes
Respiratory: Clear to Auscultation and Non Labored Respirations; Negative Accessory Resp Muscle Use
Cardiac: Regular Rhythm and S1/S2; Negative Murmur, Rub or Gallop
GI: Soft, Nontender, Nondistended and Normal Bowel Sounds; Negative Organomegaly
Rectal: Deferred by Provider
Musculoskeletal: No Clubbing, No Cyanosis and Edema, Left Lower Extrem
Skin: Negative Rash
Neuro: Awake and Alert
Psych: Calm and Intact Judgement/Insight
Data Reviewed
-
CT Scan: Report Reviewed by me
MRI: Report Reviewed by me and Discussed with Family
Labs: Labs Reviewed by me
[2023-08-16 10:25] LABS: Creatine Phosphokinase 1322 U/L (55-170)
--- NOTE | 2023-08-16 11:11 | CM ---
Addendum entered by Chelsea Franklin 08/16/23 13:07:
Patient confirmed no [facility] unless no other options. [facility] CM will continue to follow for discharge planning needs.
Addendum entered by Chelsea Franklin 08/16/23 11:38:
Patient states that he does not want [facility], CM calling to patient to review options.
Original Note:
Patient seen at bedside, pending bed availability at [facility]. CM update [facility] liaison, await response. Patient needs auth, [employer] will need to be approved prior to admission to SNF. CM will continue to follow for discharge planning needs.
Plan; SNF; [facility] need auth
[2023-08-16 11:15] VITALS: BP 150/71
[2023-08-16] MEDS: NSS 500 IV (12:21)
[2023-08-16] MEDS: FLUSH (NSS) 2 FLUSH IV (12:21)
[2023-08-16] MEDS: ROCEPHIN 1000 MG IV (14:17)
[2023-08-16] MEDS: STERILE WATER FOR INJECTION 10 ML IV (14:18)
--- NOTE | 2023-08-16 14:20 | PN.CDI ---
CDI
- -
CDI:
Physician Documentation Request
Admit Date: 08/13/23 22:26
Dear Doctor Alexa,
Please review the following and provide your response in the progress notes.
Clinical Indicators:
Pt admitted with Bilateral LE weakness, lumbar DDD
08/14 [place] Dietitian Note: 'Consulted for weight loss. Per ASPEN/AND guideliens, pt meets for moderate malnutrition in the context of social circumstances as evidenced by <75% intake est needs x >1 month, 7.6% weight loss x < 3 months, 17.9%
weight loss x 6 months.'
Based on the information, which of the following most accurately represents the patient's nutritional status?
Moderate Malnutrition in the context of social circumstances
Other (please specify)
[place] Criteria ([facility] Hospitalist 2017)
2 or more criteria must be present for either
non severe or severe malnutrition
Note that the criteria differs related to the
presence of an acute or chronic illness
Acute Illness Chronic Illness
Energy Intake Non Severe: <75% for >7 days Non Severe: <75% for >1 month
Severe: <50% for >5 days Severe: <75% for >1 month
Weight Loss Non Severe: 1-2% over 1 week Non Severe: 5% over 1 month
5% over 1 month 7.5% over 3 months
7.5% over 3 months 10% over 6 months
1 year N/A 20% over 1 year
Severe: >2% over 1 week Severe: >5% over 1 month
>5% over 1 month >7.5% over 3 months
>7.5% over 3 months >10% over 6 months
1 year N/A >20% over 1 year
Use of terms such as suspected, likely, concern for, or probable (associated with a specific diagnosis that is being evaluated, monitored, or treated as if it exists) are acceptable and can be coded in the inpatient setting, when documented at the
time of discharge.
Thank you,
Brandy Malone RN, BSN
CDI Specialist
Available via [place] Text
Please use your independent medical judgment in providing your response.
--- NOTE | 2023-08-16 15:01 | PN.CDI ---
CDI
- -
CDI:
Physician Documentation Request
Admit Date: 08/13/23 22:26
Dear Doctor Alexa,
Please review the following and provide your response in the progress notes.
Clinical Indicators:
Pt admitted with Bilateral LE weakness
08/13 Bilateral Lower extremity U/S impression: 'ACUTE DEEP VENOUS THROMBOSIS in the RIGHT POSTERIOR TIBIAL VEIN.'
08/15 PN: 'BL LE US this admission actually showed RIGHT DVT of the posterior tibial vein'
Please clarify which of the following accurately represents the acuity of the Deep venous thrombosis. Possible options might include:
Acute
Chronic
Other
Use of terms such as suspected, likely, concern for, or probable (associated with a specific diagnosis that is being evaluated, monitored, or treated as if it exists) are acceptable and can be coded in the inpatient setting, when documented at the
time of discharge.
Thank you,
Brandy Malone RN, BSN
CDI Specialist
Available via [place] Text
Please use your independent medical judgment in providing your response.
--- NOTE | 2023-08-16 15:14 | PN.CDI ---
CDI
- -
CDI:
Physician Documentation Request
Admit Date: 08/13/23 22:26
Dear Doctor Alexa,
Please review the following and provide your response in the progress notes.
Clinical Indicators:
Pt admitted with Bilateral LE weakness
The diagnosis of mild spinal cord compression was included in the signed MRI thoracic spine on 08/16/23.
Additional clinical indicators in the chart include:
08/15 MRI Impression: 'SEVERE MULTILEVEL DISCOGENIC DEGENERATIVE DISEASE in the CERVICAL SPINE with multilevel disc-osteophyte complexes causing mild spinal cord compression.'
Please indicate in your progress notes if you are in agreement that the above diagnosis is valid for this patient:
Spinal cord compression in cervical spine is a valid diagnosis
Spinal cord compression in cervical spine is not a valid diagnosis for this patient
Spinal cord compression in cervical spine is not yet confirmed but remains a suspected condition
Other
Use of terms such as suspected, likely, concern for, or probable are acceptable for a diagnosis that is being evaluated, monitored or treated as if it exists and can be coded in the inpatient setting, when documented at the time of discharge.
Thank you,
Brandy Malone RN, BSN
CDI Specialist
Available via [place] Text
Please use your independent medical judgment in providing your response.
[2023-08-16 15:50] VITALS: BP 133/66
--- NOTE | 2023-08-16 16:34 | PN.NS ---
Subjective
-
MRI of cervical and thoracic spine completed.
Physical Exam
-
Exam:
Exam:
AAOx3
on commode
CN's intact
5/5 UE strenght
LE strength reveal b/l HF weakness 3-4/5
Right LE he has 5/5 KE,TA,EHL,PF
Left LE he has 4/5 KE, 3/5 TA/EHL(patient states is old), and 5/5 PF
sensation is intact and normal
left LE pitting edema
MRI lumbar spine shows multi level degen changes, no major central stenosis in visualized spine, there is varying levels of NFS: This MRI appears stable to the prior from 04/28/23.
MRI cervical thoracic spine performed on 08/16/2023 was reviewed. There is no obvious evidence of severe neural impingement within the cervical, or thoracic spine. No acute fracture is seen. No obvious signal change in the spinal cord is seen.
There is note made of a central C2-C3 disc herniation on the report. However, my review, there is no obvious evidence of any impingement of the thecal sac, or spinal cord at this level.
Assessment / Plan
-
Lumbar spondylosis,Low back pain, difficulty ambulating
-I suspect that this his back pain is multifactorial: related to his lumbar spondylosis, muscle sprain/strain, deconditioning
There are no surgical needs at this time for this
MRI of the cervical and thoracic spine was also reviewed. No obvious evidence of structural pathology, that explains his lower extremity weakness.
-Recommend oral pain control with muscle relaxants, tapering steroid course, and prn narcotics
-Appreciate neurology workup
-Pt/OT evals
-we will sign off, please reconsult prn
Patient can go home per my specialty: Tomorrow
Today's Communication
-
Discussed imaging findings with the patient.
[2023-08-16] MEDS: LEXAPRO 10 MG PO (21:51)
[2023-08-16] MEDS: SENOKOT PO (21:51)
[2023-08-17 04:53] LABS: Hematocrit 37.4 % (39.0-52.0); Hemoglobin 12.6 g/dL (13.0-18.0); Mean Corp Hgb Conc. 33.7 g/dL (33.0-37.0); Mean Corpuscular Hgb 32.7 pg (27.0-31.0); Mean Corpuscular Volume 97.1 fL (80.0-94.0); Mean Platelet Volume 9.7 fL (7.4-10.4); Platelet Count 222 10^3/uL (130-400); Red Blood Cell Count 3.85 10^6/uL (4.70-6.10); Red Cell Dist. Width 14.6 % (11.5-14.5); White Blood Cell Count 13.6 10^3/uL (4.8-10.8)
[2023-08-17 05:33] LABS: Blood Urea Nitrogen 34 mg/dl (9-20); Calcium 8.8 mg/dl (8.4-10.2); Carbon Dioxide 30 mmol/L (22-30); Chloride 101 mmol/L (98-107); Creatine Phosphokinase 1242 U/L (55-170); Estimated Creatinine Clearance 84 ml/min; Glucose 89 mg/dl (70-99); Potassium 4.5 mmol/L (3.5-5.1); Sodium 136 mmol/L (135-145); eGFR > 60.00
[2023-08-17 06:07] VITALS: BMI 22.9
[2023-08-17 07:35] VITALS: BP 150/77
[2023-08-17] MEDS: PROTONIX 40 MG PO (08:17)
[2023-08-17] MEDS: ELIQUIS 10 MG PO ×2 (08:17→20:40)
[2023-08-17] MEDS: COREG 3.125 MG PO ×2 (08:17→20:40)
[2023-08-17] MEDS: ASPIR LOW (ENTERIC COATED) 81 MG PO (08:18)
[2023-08-17] MEDS: MESTINON 60 MG PO (08:18)
[2023-08-17] MEDS: VITAMIN B-12 1000 MCG PO (08:18)
[2023-08-17] MEDS: DELTASONE 20 MG PO (08:18)
[2023-08-17] MEDS: COLACE 100 MG PO (08:18)
[2023-08-17] MEDS: FOLVITE 0.400000000000000022 MG PO (08:19)
[2023-08-17] MEDS: MIRALAX PO (08:22)
--- NOTE | 2023-08-17 09:39 | W.PN.NEURO.1 ---
Today's Communication / Plan
-
Await blood work for acetylcholine receptor antibodies
adding HMG-CoA reductase antibodies
Increase pyridostigmine from 60 mg to dosing of 90 4x/day
Neuro Assessment/Plan
Assessment
The patient is a 77-year-old man with history of hypertension and CVD and a recent left hip fracture status postrepair who presented to hospital with left leg weakness and difficulty walking and also had sudden onset lower back pain that seemed to
resolve.
Patient had also been started on steroids due to concern for polymyalgia rheumatica based on inability to lift the arms bilaterally.
MRI of the lumbar spine did show significant degenerative disc disease, disc herniation at L4/L5 and right L5 nerve root compression, no spinal surgery interventions warranted
Differential diagnosis for the patient's current symptomatology includes polymyalgia rheumatica, statin associated myopathy, myasthenia gravis
Plan
Await blood work for acetylcholine receptor antibodies
adding HMG-CoA reductase antibodies
Increase pyridostigmine from 60 mg to dosing of 90 4x/day
Started cyanocobalamin due to low B12 level
Patient receiving folic acid
Rehabilitation evaluations and treatment
Will continue to follow patient. Thank you.
Subjective/Objective
Subjective Data
Date of Service: August 17, 2023
Mildly improved. Patient still unable to walk without significant assistance
Objective Data
Vital Signs
Temp Pulse Resp BP Pulse Ox
36.3 C 60 14 150/77 98
08/17/23 07:35 08/17/23 08:17 08/17/23 07:35 08/17/23 08:17 08/17/23 07:35
Lab Results
08/17/23 04:19
08/17/23 04:19
Sodium 136 mmol/L (135-145) 08/17/23 04:19
Potassium 4.5 mmol/L (3.5-5.1) 08/17/23 04:19
BUN 34 mg/dl (9-20) H 08/17/23 04:19
Glucose 89 mg/dl (70-99) 08/17/23 04:19
Calcium 8.8 mg/dl (8.4-10.2) 08/17/23 04:19
Vitamin B12 249 pg/ml (239-931) 08/15/23 05:47
Patient Allergies
gluten Allergy (Verified 08/13/23 17:09)
Unknown
Review of Systems
-
History Source: Patient and Family
All other systems: Reviewed and negative
EENT: Swallowing Difficulty; Negative Other (Sialorrhea)
Abdomen/GI: Negative Incontinence of Stool
Physical Exam
-
General: No Apparent Distress and Appears Stated Age
Eyes: Round OU, [place] Conjunctivae and No Ptosis
HEENT: Anicteric and Moist Mucous Membranes
Neck: Full Range of Motion
Respiratory: No Dyspnea
Cardiac: No JVD
GI: Non-distended
Skin: Unremarkable
Extremities: No Clubbing, No Cyanosis and Edema +2 (in left leg)
Psych: Intact Judgement/Insight
Extended Neurological Exam
Mood & Affect: Mood Unremarkable and Affect Unremarkable
Attention Span & Concentration: Awake, Alert, Interactive and No Difficulty with 2 Step Request
Memory: Unremarkable
Tremor: Hand Tremor Absent and Head Tremor Absent
Speech: Quality Unremarkable and Quantity Unremarkable
Cranial Nerve II: Left Eye: Pupillary Size Unremarkable and Visual [place] Grossly Intact
Cranial Nerve II: Right Eye: Pupillary Size Unremarkable and Visual [place] Grossly Intact
Cranial Nerves III, IV, : Extraocular Movement: Grossly Intact
Cranial Nerve VII: Facial Symmetry: Normal Facial Symmetry
Cranial Nerve VIII: Hearing: Unremarkable Hearing to Normal Conversational Volume
Cranial Nerves IX, X: Palate Movement: Palate Elevation Symmetric
Cranial Nerve XI: Shoulder Shrug: Reduced on Right and Reduced on Left
Muscle Strength, Overall: Reduced (Bilateral hip flexors 4 out of 5 equally; able to stand with wide base)
Muscle Bulk & Tone: Bulk Unremarkable and Tone Unremarkable
Touch Sensation: Unremarkable
Coordination: Reaches for Objects without Difficulty
Gait & Station: Negative Up from Seated Without Problem
Data Reviewed
-
Labs: Report Reviewed
Reviewed with: Nurse Practioner and Patient
Old Records: Summarized
Past History
Past History
ED Past Medical History: CVA (2018), GERD, HTN, Hypercholesterolemia and Other (Vitamin B12, vitamin D, adenomatous polyp, cholelithiasis); Negative Renal failure (CKD 3)
ED Past Surgical History: Orthopedic (left hip ORIF 06/2023) and Other (Hernia, cataract surgery, bilateral cataract surgery, left leg stent)
Social History
Tobacco: Non-smoker
Alcohol: None
Drug: None
Personal:
Living: with family
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
Family History
Family History: Early CAD
Medications
-
Medications:
Generic Name Dose Route Start Last Admin
Trade Name Freq PRN Reason Stop Dose Admin
Acetaminophen 650 mg 08/13/23 23:32
Acetaminophen 325 Mg Tablet PO 09/10/23 23:31
Q4HPRN PRN
Mild Pain / Temp > 101
Apixaban 10 mg 08/14/23 12:30 08/17/23 08:17
Apixaban (Eliquis) 5 Mg Tablet PO 08/21/23 12:29 10 mg
BID BALWINDER Administration
Apixaban 5 mg 08/21/23 07:00
Apixaban (Eliquis) 5 Mg Tablet PO 09/18/23 06:59
BID BALWINDER
Aspirin 81 mg 08/14/23 08:00 08/17/23 08:18
Aspirin 81 Mg (Enteric Coated) Tablet PO 09/11/23 07:59 81 mg
DAILY BALWINDER Administration
Carvedilol 3.125 mg 08/14/23 20:00 08/17/23 08:17
Carvedilol 3.125 Mg Tablet PO 09/11/23 19:59 3.125 mg
BID BALWINDER Administration
Ceftriaxone Sodium 1,000 mg 08/16/23 14:00 08/16/23 14:17
Ceftriaxone 1000 Mg / 10 Ml Vial IV 1,000 mg
Q24H BALWINDER Administration
Cyanocobalamin 1,000 mcg 08/15/23 18:00 08/17/23 08:18
Cyanocobalamin 1,000 Mcg Tablet PO 09/12/23 17:59 1,000 mcg
DAILY BALWINDER Administration
Docusate Sodium 100 mg 08/14/23 08:00 08/17/23 08:18
Docusate Sodium 100 Mg Capsule PO 09/11/23 07:59 100 mg
BID BALWINDER Administration
Escitalopram Oxalate 10 mg 08/14/23 01:00 08/16/23 21:51
Escitalopram 10 Mg Tablet PO 09/11/23 00:59 10 mg
HS BALWINDER Administration
Folic Acid 0.4 mg 08/15/23 18:00 08/17/23 08:19
Folic Acid 0.4 Mg Tablet PO 09/12/23 17:59 0.4 mg
DAILY BALWINDER Administration
Morphine Sulfate 2 mg 08/13/23 23:32
Morphine 2 Mg/Ml Syringe IV 08/27/23 23:31
Q4HPRN PRN
Severe Pain
Oxycodone HCl 5 mg 08/13/23 23:32
Oxycodone 5 Mg Regular Release Tablet PO 08/27/23 23:31
Q4HPRN PRN
Moderate Pain
Pantoprazole Sodium 40 mg 08/14/23 08:00 08/17/23 08:17
Pantoprazole 40 Mg Delayed Release Tablet PO 09/11/23 07:59 40 mg
DAILY BALWINDER Administration
Polyethylene Glycol 17 grams 08/14/23 08:00 08/17/23 08:22
Polyethylene Glycol Powder 17 Grams Packet PO 09/11/23 07:59 Not Given
DAILY BALWINDER
Prednisone 20 mg 08/14/23 08:00 08/17/23 08:18
Prednisone 20 Mg Tablet PO 09/11/23 07:59 20 mg
DAILY BALWINDER Administration
Prochlorperazine Edisylate 5 mg 08/13/23 23:32
Prochlorperazine 10 Mg/2 Ml Vial IV 09/10/23 23:31
Q6HPRN PRN
Nausea
Pyridostigmine [place] 60 mg 08/15/23 18:00 08/17/23 08:18
Pyridostigmine 60 Mg Tablet PO 09/12/23 17:59 60 mg
QID BALWINDER Administration
Sennosides 17.2 mg 08/14/23 01:00 08/16/23 21:51
Sennosides (Senokot) 8.6 Mg Tablet PO 09/11/23 00:59 Not Given
HS BALWINDER
Sodium Chloride 0 flush 08/13/23 23:00 08/16/23 12:21
Sodium Chloride 0.9% (Flush) Syringe IV 09/10/23 22:59 2 flush
PER PROTOCOL BALWINDER Administration
Sterile Water 10 ml 08/16/23 14:00 08/16/23 14:18
Sterile Water For Injection 10 Ml Vial IV 09/13/23 13:59 10 ml
Q24H BALWINDER Administration
--- NOTE | 2023-08-17 11:13 | W.PN.HOSP.TC ---
Today's Communication/Plan
-
neuro starting pulse dose steroids
cont therapy--?Singleton candidate
Assessment / Plan
Assessment / Plan
HPI: 77 yo M with PMH significant for ASCVD, hypertension and recent L hip fracture / repair who presented to ED complaining of LE weakness and inability to walk.
History obtained from patient and his at the bedside. Patient was hospitalized here in June for L hip fracture and underwent ORIF on 07/03/23. He had had swelling of the LLE for several months prior to that and had no pain, etc.
He was discharged to SNF following his surgery where he has been since that time. 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 This improved once he returned to a
supine position. However, the following day he noted significant weakness in the LEs. Patient was able to stand with assistance / stand at a walker; however, he was unable to take even a single step.
The night prior admission, he noted some pain in the R hip / greater trochanter area. He continued to have weakness in the legs and presented to the ED for further evaluation.
Patient denies to any significant low back pain, hip pain, radicular pain, etc. He has had no significant fall / trauma since his recent hospitalization.
Lumbar discogenic degenerative disease with possibility of Acute Herniation with Lumbar Central canal stenosis and Lateral Foraminal Stenosis and Bilateral LE Weakness--LE weakness was worse with standing / sitting upright--No bowel or bladder
incontinence--apprec neurosurgery and neurology--Spinal cord compression in cervical spine has been ruled out--leading theory is myasthenia gravis--getting pulse dose steroids day 1/5-- ACh receptor Ab ordered by neuro, and empiric Pyridostigmine
started. Neuro to direct Pyridostigmine dose--Check EMG--CPK level also noted high at 1300, hence cannot r/o statin induced myopathy, will hold statin/Crestor and give gentle IVF 500 cc, follow CPK level--PT/OT rec SNF
Left Hip Fracture s/p ORIF 07/03/2023 - Stable--LLE edema--Still with significant edema in the LLE compared to the R--BL LE US this admission actually showed RIGHT DVT of the posterior tibial vein--Started empiric Eliquis 10 mg BID x7 days, then 5 mg
BID for 3 months--Dr. Liu Informed to repeat LE US in 4 weeks after discharge to evaluate DVT--PT / OT as noted above.
recent diagnosis of possible PMR (with presentation of inability to lift BL arms) and pt was started with prednisone [address] Goncalves from rehab--Mild leucocytosis likely due to steroid--ESR/CRP in the 20's--Per , his BL Upper extremities
weakness has improved since initiation of prednisone about 1 week GUARD ENTRANCE REGISTRAR--However, does not feel current BL LE weakness is related to PMR given it started acutely after bad body positioning/maneuver
stopped GUARD ENTRANCE REGISTRAR prednisone 20 mg daily and getting pulse dose steroids--Rec outpt Rheum eval- informed
ASCVD- Stable---Continue current med regimen including ASA, etc.
Chronic Cholelithiasis / Choledocholithiasis--Seen on imaging as early as April 2023--Known to GI with plans for outpatient follow-up / eventual ERCP/EUS--Has / has had no symptoms of abdominal pain, N/V, etc--Follow for any changes.
Moderate Malnutrition in the context of social circumstances
CKD III- Stable--Renal function at baseline, with SCr at 0.7
Acute DEEP VENOUS THROMBOSIS in the RIGHT POSTERIOR TIBIAL VEIN--eliquis
DVT Prophylaxis: Eliquis
Code Status: Full
Anticipated Discharge: > 48 hours
Subjective/Interval History
-
Date of Service: August 17, 2023
pt still weak
Objective Data
-
Labs:
Laboratory Results
08/17/23
04:19
WBC 13.6 H
Hgb 12.6 L
Hct 37.4 L
Plt Count 222
Sodium 136
Potassium 4.5
Chloride 101
Carbon Dioxide 30
BUN 34 H
Creatinine 0.8
Glucose 89
Calcium 8.8
Vital Signs:
max temp for 24 hours
08/17/23
07:35
Temp 97.4 F
Vital Signs
Temp Pulse Resp BP Pulse Ox
97.4 F 60 14 150/77 98
08/17/23 07:35 08/17/23 08:17 08/17/23 07:35 08/17/23 08:17 08/17/23 07:35
I&O
08/16/23 08/17/23 08/18/23
06:59 06:59 06:59
Intake Total 400 / 400 1240 / 1240
Output Total 1100 / 1100 1345 / 1345
Balance -700 / -700 -105 / -105
Review of Systems
-
All other systems: Reviewed and negative
Neuro: Reports Weakness
Physical Exam
-
General: Appears Chronically Ill
HEENT: Normocephalic and Atraumatic
Respiratory: Clear to Auscultation; Negative Wheezes or Rhonchi
Cardiac: Regular Rhythm; Negative Murmur
GI: Soft, Nontender, Nondistended and Normal Bowel Sounds
Musculoskeletal: No Clubbing, No Cyanosis and Other (left leg with edema from recent hip fracture)
Skin: Warm
Neuro: Awake
--- NOTE | 2023-08-17 11:18 | CM ---
Addendum entered by Chelsea Franklin 08/17/23 11:22:
Physician requesting PM&R consult to review options and if he would qualify for [facility].
Original Note:
Patient seen at bedside with physician. Patient now on pulse dose steroids per physician. Patient still wants to go to [facility] pending bed availability when medically appropriate. CM will continue to follow for discharge planning needs.
Plan; SNF; when medically appropriate.
[2023-08-17] MEDS: SOLU-MEDROL 258 MG IV (11:24)
[2023-08-17] MEDS: PEPCID 20 MG PO (11:24)
[2023-08-17] MEDS: MESTINON 90 MG PO ×3 (14:08→21:00)
[2023-08-17] MEDS: STERILE WATER FOR INJECTION 10 ML IV (14:09)
[2023-08-17] MEDS: ROCEPHIN 1000 MG IV (14:09)
[2023-08-17 15:27] VITALS: BP 138/65
[2023-08-17] MEDS: COLACE PO (20:40)
[2023-08-17] MEDS: LEXAPRO 10 MG PO (20:41)
[2023-08-17] MEDS: SENOKOT PO (20:43)
[2023-08-17 23:50] VITALS: BP 154/73
[2023-08-18] VITALS (11 sets, daily range): BP systolic 127–168; BP diastolic 64–95; PULSE 60; O2SAT 97; BMI 22.5
[2023-08-18 05:52] LABS: Hematocrit 39.1 % (39.0-52.0); Hemoglobin 13.2 g/dL (13.0-18.0); Mean Corp Hgb Conc. 33.8 g/dL (33.0-37.0); Mean Corpuscular Hgb 32.6 pg (27.0-31.0); Mean Corpuscular Volume 96.5 fL (80.0-94.0); Mean Platelet Volume 9.9 fL (7.4-10.4); Platelet Count 236 10^3/uL (130-400); Red Blood Cell Count 4.05 10^6/uL (4.70-6.10); Red Cell Dist. Width 14.3 % (11.5-14.5)
[2023-08-18 06:17] LABS: ALT (SGPT) 141 U/L (0-50); AST (SGOT) 107 U/L (17-59); Alkaline Phosphatase 130 U/L (38-126); Blood Urea Nitrogen 38 mg/dl (9-20); Calcium 9.2 mg/dl (8.4-10.2); Carbon Dioxide 26 mmol/L (22-30); Chloride 100 mmol/L (98-107); Estimated Creatinine Clearance 82 ml/min; Glucose 132 mg/dl (70-99); Magnesium 2.1 mg/dl (1.6-2.3); Potassium 4.8 mmol/L (3.5-5.1); Sodium 135 mmol/L (135-145); Total Bilirubin 0.5 mg/dl (0.2-1.3); Total Protein 5.8 g/dl (6.3-8.2); eGFR > 60.00
--- NOTE | 2023-08-18 08:13 | W.PN.NEURO.1 ---
Addendum entered and electronically signed by Donavan Abrams MD 08/18/23 14:53:
EMG supports a myopathy, elevated CK and proximal muscle weakness proximally clinically support a myopathy as well, unlikely that we are dealing with myasthenia gravis.
No characteristic rash of Dermatomyositis. Lack of distal muscle weakness makes inclusion body myositis unlikely.
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
He did have myasthenia and HMG CoA reductase antibodies drawn.
Now that patient has received IVIG we should delay further antibody testing for 1-2 months as abnormal antibody testing now would be confounded by the presence of IVIG.
For the future should send for
-Anti-Nicole , Anti SRP, Anti Mi2, Anti MDA5, Anti NXP2, Anti TIF, Anti CARLYLE, SSA/SSBh, and USABILITY ARCHITECT (May be helpful to to a myositis associated panel test)
Addendum entered and electronically signed by Donavan Abrams MD 08/18/23 12:23:
I saw and evaluate the patient I reviewed the note by Harriet and agree to find the following comments:
One 77-year-old man presented to hospital with leg weakness ambulatory difficulty and also had significant lower back pain that is resolved. Patient relates around 2 months of significant weakness in the legs and walking difficulty and also has had
a couple months of diplopia. No history of malignancy.
Neurologic examination shows normal mental status and normal cranial nerve
Motor examination significant for proximal muscle weakness in shoulder abduction hip flexion distal muscle weakness in the fingers hands wrists and ankles are normal
Assessment: Multiple possible etiologies for her weakness including urinary tract infection, elevated CK but I do have suspicion for possible underlying neuromuscular disorder such as myasthenia gravis, myopathy or myositis. Would have expected if
the patient had polymyalgia rheumatica to have more significant the shoulders which the patient denies.
Recommendations
-Pending myasthenia and HMG CoA reductase antibodies
-Continue steroids and IVIG day 2/5 he does appear to be responding
-Continue pyridostigmine 90 mg 4 times daily
-Continue vitamin B-12 supplementation
-EMG testing
-PT/OT mobilizatoin
-Treating UTI, following CK
Original Note:
Today's Communication / Plan
-
.
Neuro Assessment/Plan
Assessment
The patient is a 77-year-old man with history of hypertension and CVD and a recent left hip fracture status postrepair who presented to hospital with left leg weakness and difficulty walking and also had sudden onset lower back pain that seemed to
resolve.
Patient had also been started on steroids due to concern for polymyalgia rheumatica based on inability to lift the arms bilaterally.
Creatine kinase elevated at 1322.
MRI of the lumbar spine did show significant degenerative disc disease, disc herniation at L4/L5 and right L5 nerve root compression, no spinal surgery interventions warranted
Differential diagnosis for the patient's current symptomatology includes polymyalgia rheumatica, statin associated myopathy, myasthenia gravis
Plan
Awaiting EMG.
Continue 5 day course of IVIG and methylprednisone, today is day 2/5.
Await blood work for acetylcholine receptor antibodies
adding HMG-CoA reductase antibodies
Continue increased dose of pyridostigmine from 60 mg to dosing of 90 4x/day since patient has not had diarrhea, will decrease does if he starts to not tolerate this.
Started cyanocobalamin due to low B12 level
Patient receiving folic acid
Rehabilitation evaluations and treatment
DVT treatment per primary team.
Will continue to follow patient. Thank you.
Subjective/Objective
Subjective Data
Date of Service: August 18, 2023
No acute events overnight. Patient reports feeling slightly stronger today and his oral secretions have lessened. He denies any headache, dizziness, vision changes/diplopia, speech/swallow difficulty, numbness, nausea, chest pain, palpitations, and
shortness of breath.
Objective Data
Vital Signs
Temp Pulse Resp BP Pulse Ox
97.6 F 56 12 154/73 96
08/17/23 23:50 08/17/23 23:50 08/17/23 23:50 08/17/23 23:50 08/17/23 23:50
Lab Results
08/18/23 04:21
08/18/23 04:21
Sodium 135 mmol/L (135-145) 08/18/23 04:21
Potassium 4.8 mmol/L (3.5-5.1) 08/18/23 04:21
BUN 38 mg/dl (9-20) H 08/18/23 04:21
Glucose 132 mg/dl (70-99) H 08/18/23 04:21
Calcium 9.2 mg/dl (8.4-10.2) 08/18/23 04:21
Vitamin B12 249 pg/ml (239-931) 08/15/23 05:47
Patient Allergies
gluten Allergy (Verified 08/13/23 17:09)
Unknown
Review of Systems
-
History Source: Patient
EENT: Tearing and Other (drooling, improved); Negative Blurry Vision, Decreased Vision or Swallowing Difficulty
Respiratory: Negative Cough or Trouble Breathing
Cardiac: Negative Chest Pain or Palpitations
Abdomen/GI: Negative Nausea
Genitourinary: Negative Incontinence or Difficulty Voiding
Neuro: Weakness; Negative Dizzy, Headache, Numbness, Ataxia, Tremors or Speech Problem
Physical Exam
-
General: No Apparent Distress
Eyes: No Ptosis and PERRLA
HEENT: Normocephalic and Atraumatic
Neck: Full Range of Motion
Respiratory: No Dyspnea
GI: Non-distended
Skin: Warm and Dry
Extremities: No Clubbing, No Cyanosis and Edema +2 (LLE)
Psych: Unremarkable
Extended Neurological Exam
Mood & Affect: Mood Unremarkable and Affect Unremarkable
Attention Span & Concentration: Awake, Alert and Interactive
Memory: Unremarkable (AAOx3) and Able to Recall
Tremor: Hand Tremor Absent and Head Tremor Absent
Involuntary Movement: None
Speech: Quality Unremarkable, Quantity Unremarkable and Rate of Production Unremarkable
Cranial Nerve II: Left Eye: Pupillary Reactivity Unremarkable, Pupillary Size Unremarkable and Visual [place] Intact
Cranial Nerve II: Right Eye: Pupillary Reactivity Unremarkable, Pupillary Size Unremarkable and Visual [place] Intact
Cranial Nerves III, IV, : Extraocular Movement: Extraocular Movement Full in all Directions
Cranial Nerve V: Facial Sensation: Intact to Light Touch
Cranial Nerve VII: Facial Symmetry: Normal Facial Symmetry
Cranial Nerve VIII: Hearing: Unremarkable Hearing to Normal Conversational Volume
Cranial Nerves IX, X: Palate Movement: Palate Elevation Symmetric
Cranial Nerve XI: Shoulder Shrug: Unremarkable
Cranial Nerve XII: Tongue Protusion: Midline
Muscle Strength, Overall: Reduced Throughout (b/l shoulder ext 3/5, distal BUE 5/5. b/l hip flexion 2/5, b/l dorsi/plantarflexion 5/5. neck ext/flex 5/5.)
Muscle Bulk & Tone: Bulk Unremarkable and Tone Unremarkable
Pronator Drift: No Drift in Upper Extremities; Negative No Drift in Lower Extremities (NEETU)
Deep Tendon Reflexes: Other (absent in BLE, trace BUE)
Cold Sensation: Unremarkable
Vibration Sensation: Reduced Mildly Distally
Touch Sensation: Unremarkable
Coordination: [id number] Testing Unremarkable
Babinski Sign: Absent Bilaterally
Data Reviewed
-
MRI Cervical Spine: Report Reviewed and Image Reviewed
MRI Thoracic Spine: Report Reviewed and Image Reviewed
MRI Lumbar Spine: Report Reviewed and Image Reviewed
Labs: Report Reviewed
EMG: Pending
Reviewed with: Physician and Patient
Medications
-
Active Medications
Generic Name Dose Route Start Last Admin
Trade Name Freq PRN Reason Stop Dose Admin
Acetaminophen 650 mg 08/13/23 23:32
Acetaminophen 325 Mg Tablet PO 09/10/23 23:31
Q4HPRN PRN
Mild Pain / Temp > 101
Apixaban 10 mg 08/14/23 12:30 08/18/23 08:23
Apixaban (Eliquis) 5 Mg Tablet PO 08/20/23 23:59 10 mg
BID BALWINDER Administration
Apixaban 5 mg 08/21/23 08:00
Apixaban (Eliquis) 5 Mg Tablet PO 09/18/23 07:59
BID BALWINDER
Aspirin 81 mg 08/14/23 08:00 08/18/23 08:23
Aspirin 81 Mg (Enteric Coated) Tablet PO 09/11/23 07:59 81 mg
DAILY BALWINDER Administration
Carvedilol 3.125 mg 08/14/23 20:00 08/18/23 08:23
Carvedilol 3.125 Mg Tablet PO 09/11/23 19:59 3.125 mg
BID BALWINDER Administration
Ceftriaxone Sodium 1,000 mg 08/16/23 14:00 08/17/23 14:09
Ceftriaxone 1000 Mg / 10 Ml Vial IV 1,000 mg
Q24H BALWINDER Administration
Cyanocobalamin 1,000 mcg 08/15/23 18:00 08/18/23 08:22
Cyanocobalamin 1,000 Mcg Tablet PO 09/12/23 17:59 1,000 mcg
DAILY BALWINDER Administration
Docusate Sodium 100 mg 08/14/23 08:00 08/18/23 08:23
Docusate Sodium 100 Mg Capsule PO 09/11/23 07:59 100 mg
BID BALWINDER Administration
Escitalopram Oxalate 10 mg 08/14/23 01:00 08/17/23 20:41
Escitalopram 10 Mg Tablet PO 09/11/23 00:59 10 mg
HS BALWINDER Administration
Famotidine 20 mg 08/17/23 11:00 08/18/23 08:23
Famotidine 20 Mg Tablet PO 09/14/23 10:59 20 mg
DAILY BALWINDER Administration
Folic Acid 0.4 mg 08/15/23 18:00 08/18/23 08:23
Folic Acid 0.4 Mg Tablet PO 09/12/23 17:59 0.4 mg
DAILY BALWINDER Administration
Methylprednisolone Sodium 258 mls @ 258 mls/hr 08/17/23 10:00 08/18/23 10:21
Succinate 1,000 mg/ Sodium IV 08/21/23 10:59 258 mls
Chloride Q24H BALWINDER Administration
Immune Globulin 30 grams in 300 mls @ 0 mls/hr 08/17/23 11:00
Gammagard IV 08/21/23 11:01
PER PROTOCOL BALWINDER
Protocol
As Directed
Morphine Sulfate 2 mg 08/13/23 23:32
Morphine 2 Mg/Ml Syringe IV 08/27/23 23:31
Q4HPRN PRN
Severe Pain
Pantoprazole Sodium 40 mg 08/14/23 08:00 08/18/23 08:22
Pantoprazole 40 Mg Delayed Release Tablet PO 09/11/23 07:59 40 mg
DAILY BALWINDER Administration
Polyethylene Glycol 17 grams 08/14/23 08:00 08/18/23 08:24
Polyethylene Glycol Powder 17 Grams Packet PO 09/11/23 07:59 Not Given
DAILY BALWINDER
Prochlorperazine Edisylate 5 mg 08/13/23 23:32
Prochlorperazine 10 Mg/2 Ml Vial IV 09/10/23 23:31
Q6HPRN PRN
Nausea
Pyridostigmine [place] 90 mg 08/17/23 13:00 08/18/23 08:22
Pyridostigmine 60 Mg Tablet PO 09/12/23 12:59 90 mg
QID BALWINDER Administration
Sennosides 17.2 mg 08/14/23 01:00 08/17/23 20:43
Sennosides (Senokot) 8.6 Mg Tablet PO 09/11/23 00:59 Not Given
HS BALWINDER
Sodium Chloride 0 flush 08/13/23 23:00 08/16/23 12:21
Sodium Chloride 0.9% (Flush) Syringe IV 09/10/23 22:59 2 flush
PER PROTOCOL BALWINDER Administration
Sterile Water 10 ml 08/16/23 14:00 08/17/23 14:09
Sterile Water For Injection 10 Ml Vial IV 09/13/23 13:59 10 ml
Q24H BALWINDER Administration
Home Medications
�Medication �Instructions �Recorded
acetaminophen 325 mg tablet 650 mg PO Q4HPRN PRN MILD PAIN 08/13/23
(Tylenol)
amlodipine 5 mg tablet (Norvasc) 5 mg PO HS Blood Pressure 08/13/23
aspirin 81 mg tablet,delayed 81 mg PO DAILY Blood Clot 08/13/23
release Prevention/Tx
bisacodyl 10 mg rectal suppository 10 mg FL DAILYPRN PRN CONSTIPATION 08/13/23
(Dulcolax (bisacodyl))
calcium carbonate (Tums) 200 mg PO Q8HPRN PRN GERD 08/13/23
escitalopram oxalate 10 mg tablet 10 mg PO HS Depression 08/13/23
(Lexapro)
magnesium hydroxide 400 mg/5 mL 400 mg PO DAILYPRN PRN CONSTIPATION 08/13/23
oral suspension (Milk of Magnesia)
oxycodone 5 mg tablet 5 mg PO Q4HPRN PRN SEVERE PAINS 08/13/23
pantoprazole 40 mg tablet,delayed 40 mg PO DAILY Gastrointestinal 08/13/23
release (Protonix) Issue
polyethylene glycol 3350 17 gram 17 g PO DAILYPRN PRN CONSTIPATION 08/13/23
oral powder packet (Miralax)
prednisone 10 mg tablet 20 mg PO DAILY Anti-Inflammatory 08/13/23
rosuvastatin 5 mg tablet 5 mg PO HS High Cholesterol 08/13/23
sodium phosphates 19 gram-7 118 ml FL DAILYPRN PRN CONSTIPATION 08/13/23
gram/118 mL enema (Fleet Enema)
[2023-08-18] MEDS: VITAMIN B-12 1000 MCG PO (08:22)
[2023-08-18] MEDS: PROTONIX 40 MG PO (08:22)
[2023-08-18] MEDS: MESTINON 90 MG PO ×2 (08:22→14:11)
[2023-08-18] MEDS: ASPIR LOW (ENTERIC COATED) 81 MG PO (08:23)
[2023-08-18] MEDS: FOLVITE 0.400000000000000022 MG PO (08:23)
[2023-08-18] MEDS: ELIQUIS 10 MG PO ×2 (08:23→20:22)
[2023-08-18] MEDS: COLACE 100 MG PO (08:23)
[2023-08-18] MEDS: PEPCID 20 MG PO (08:23)
[2023-08-18] MEDS: COREG 3.125 MG PO ×2 (08:23→20:21)
[2023-08-18] MEDS: MIRALAX PO (08:24)
[2023-08-18] MEDS: SOLU-MEDROL 258 MG IV (10:21)
--- NOTE | 2023-08-18 13:27 | CM ---
Patient seen at bedside. Patient to be seen by PM&R for assessment, PT/OT recommendation is for Acute Rehab, CM will send referral to [place]. CM will continue to follow for discharge planning needs.
Plan; SNF vs Acute rehab
--- NOTE | 2023-08-18 14:03 | W.PN.HOSP.TC ---
Today's Communication/Plan
-
cont IVIG and pulse dose steroids
Assessment / Plan
Assessment / Plan
HPI: 77 yo M with PMH significant for ASCVD, hypertension and recent L hip fracture / repair who presented to ED complaining of LE weakness and inability to walk.
History obtained from patient and his at the bedside. Patient was hospitalized here in June for L hip fracture and underwent ORIF on 07/03/23. He had had swelling of the LLE for several months prior to that and had no pain, etc. He was
discharged to SNF following his surgery where he has been since that time. 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 This improved once he returned to a supine
position. However, the following day he noted significant weakness in the LEs. Patient was able to stand with assistance / stand at a walker; however, he was unable to take even a single step.The night prior admission, he noted some pain in the R
hip / greater trochanter area. He continued to have weakness in the legs and presented to the ED for further evaluation.
Patient denies to any significant low back pain, hip pain, radicular pain, etc. He has had no significant fall / trauma since his recent hospitalization.
Lumbar discogenic degenerative disease with possibility of Acute Herniation with Lumbar Central canal stenosis and Lateral Foraminal Stenosis and Bilateral LE Weakness---No bowel or bladder incontinence--apprec neurosurgery and neurology--Spinal
cord compression in cervical spine has been ruled out--leading theory is myasthenia gravis--getting pulse dose steroids day 2/5 and IVIG day 2/5-- ACh receptor Ab negative, and empiric Pyridostigmine-- Neuro to direct Pyridostigmine dose--EMG
pending--CPK level also noted high at 1300, hence cannot r/o statin induced myopathy, will hold statin/Crestor-- follow CPK level--PT/OT--added speech
Left Hip Fracture s/p ORIF 07/03/2023 - Stable--LLE edema--Still with significant edema in the LLE compared to the R--BL LE US this admission actually showed RIGHT DVT of the posterior tibial vein--Started empiric Eliquis 10 mg BID x7 days, then 5 mg
BID for 3 months--Dr. Liu Informed to repeat LE US in 4 weeks after discharge to evaluate DVT--PT / OT as noted above.
recent diagnosis of possible PMR (with presentation of inability to lift BL arms) and pt was started with prednisone [address] Goncalves from rehab--Mild leucocytosis likely due to steroid--ESR/CRP in the 20's--Per , his BL Upper extremities
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
stopped TAFE LECTURER prednisone 20 mg daily and getting pulse dose steroids--Rec outpt Rheum eval- informed
ASCVD- Stable---Continue current med regimen including ASA, etc.
Chronic Cholelithiasis / Choledocholithiasis--Seen on imaging as early as April 2023--Known to GI with plans for outpatient follow-up / eventual ERCP/EUS--Has / has had no symptoms of abdominal pain, N/V, etc--Follow for any changes.
Moderate Malnutrition in the context of social circumstances
CKD III- Stable--Renal function at baseline, with SCr at 0.7
Acute DEEP VENOUS THROMBOSIS in the RIGHT POSTERIOR TIBIAL VEIN--eliquis
DVT Prophylaxis: Eliquis
Code Status: Full
Anticipated Discharge: > 48 hours
Subjective/Interval History
-
Date of Service: August 18, 2023
pt did c/o voice change and gurgling with swallowing (although improved since admission)
Objective Data
-
Labs:
Laboratory Results
08/18/23
04:21
WBC 12.0 H
Hgb 13.2
Hct 39.1
Plt Count 236
Sodium 135
Potassium 4.8
Chloride 100
Carbon Dioxide 26
BUN 38 H
Creatinine 0.8
Glucose 132 H
Calcium 9.2
Total Bilirubin 0.5
AST 107 H
ALT 141 H
Alkaline Phosphatase 130 H
Vital Signs:
max temp for 24 hours
08/17/23
23:50
Temp 97.6 F
Vital Signs
Temp Pulse Resp BP Pulse Ox
97.4 F 61 16 157/80 96
08/18/23 07:10 08/18/23 08:23 08/18/23 07:10 08/18/23 08:23 08/17/23 23:50
I&O
08/17/23 08/18/23 08/19/23
06:59 06:59 06:59
Intake Total 1240 / 1240 420 / 420
Output Total 1345 / 1345 940 / 940
Balance -105 / -105 -520 / -520
Review of Systems
-
All other systems: Reviewed and negative
Physical Exam
-
General: Well Developed, Well Nourished and No Apparent Distress
HEENT: Normocephalic and Atraumatic; Negative Oxygen
Respiratory: Clear to Auscultation and Wheezes; Negative Rhonchi
Cardiac: Regular Rhythm and S1/S2; Negative Murmur
GI: Soft, Nontender, Nondistended and Normal Bowel Sounds
Musculoskeletal: No Clubbing, No Cyanosis and No Edema
Neuro: Awake and Alert
Psych: Calm
[2023-08-18] MEDS: STERILE WATER FOR INJECTION 10 ML IV (14:11)
[2023-08-18] MEDS: ROCEPHIN 1000 MG IV (14:12)
--- NOTE | 2023-08-18 14:21 | NS.EMG ---
Electromyogram (EMG) Study
EMG/NCS Summary
EMG/nerve conduction study of the left upper limb and right lower limb was completed. The evaluation was completed in the patient's hospital room.
Electrodiagnostic Impressions:
1. Inflammatory myopathy.
The needle EMG showed prominent muscle membrane irritability with fibrillations and positive sharp waves in the proximal limb musculature of the left upper limb and right lower limb. Small amplitude, short duration polyphasic motor unit potentials
with early recruitment were present consistent with myopathy.
The electrodiagnostic abnormalities can be seen in polymyositis as well as toxic/necrotic myopathies.
2. Length-dependent axonal sensory peripheral polyneuropathy.
Full dictated report and tabular data to follow.
[2023-08-18] MEDS: GAMMAGARD 300 IV (14:51)
--- NOTE | 2023-08-18 15:29 | PTOTSP ---
Dysphagia Evaluation
Patient presents with signs concerning for mild oral and unspecified pharyngeal dysphagia as well as signs concerning for aspiration (i.e., coughing) with regular solids and liquid wash. Patient also with mild dysphonia (i.e., low volume, slight
breathy quality, periods of wet voicing cleared with spontaneous throat clearing). Neurology following due to concern for neuromuscular disorder of unknown etiology.
Patient reported changes have been on-going for a 'couple weeks' but are improving. He denied any known respiratory complications but reported weight loss.
Recommend:
1. Regular (pick soft/moist foods, avoid dry foods/bread), Thin Liquids
2. Medications as best tolerated
3. Strategies: upright to 90 degrees, small single sips/bites, slow rate, notify nurse and hold further PO if feeling increased stasis or s/s of aspiration
4. Oral care 3x daily
5. Video swallow study to objectively assess oral/pharyngeal stages of swallowing.
[2023-08-18] MEDS: LEXAPRO 10 MG PO (20:21)
[2023-08-18] MEDS: COLACE PO (20:22)
[2023-08-18] MEDS: SENOKOT PO (20:22)
[2023-08-19] VITALS (9 sets, daily range): BP systolic 128–146; BP diastolic 60–74; BMI 22.4
[2023-08-19 05:49] LABS: Hemoglobin 13.1 g/dL (13.0-18.0); Mean Corp Hgb Conc. 34.5 g/dL (33.0-37.0); Mean Corpuscular Hgb 32.9 pg (27.0-31.0); Mean Corpuscular Volume 95.5 fL (80.0-94.0); Mean Platelet Volume 10.1 fL (7.4-10.4); Platelet Count 218 10^3/uL (130-400); Red Blood Cell Count 3.98 10^6/uL (4.70-6.10); Red Cell Dist. Width 14.4 % (11.5-14.5); White Blood Cell Count 11.5 10^3/uL (4.8-10.8)
[2023-08-19 06:08] LABS: ALT (SGPT) 123 U/L (0-50); AST (SGOT) 81 U/L (17-59); Albumin 2.9 g/dl (3.5-5.0); Alkaline Phosphatase 116 U/L (38-126); Blood Urea Nitrogen 45 mg/dl (9-20); Calcium 8.8 mg/dl (8.4-10.2); Carbon Dioxide 29 mmol/L (22-30); Chloride 100 mmol/L (98-107); Estimated Creatinine Clearance 94 ml/min; Glucose 127 mg/dl (70-99); Magnesium 2.1 mg/dl (1.6-2.3); Potassium 4.7 mmol/L (3.5-5.1); Sodium 135 mmol/L (135-145); Total Bilirubin 0.5 mg/dl (0.2-1.3); Total Protein 6.4 g/dl (6.3-8.2); eGFR > 60.00
[2023-08-19] MEDS: ASPIR LOW (ENTERIC COATED) 81 MG PO (08:12)
[2023-08-19] MEDS: COLACE 100 MG PO ×2 (08:12→20:48)
[2023-08-19] MEDS: ELIQUIS 10 MG PO ×2 (08:12→20:49)
[2023-08-19] MEDS: FOLVITE 0.400000000000000022 MG PO (08:13)
[2023-08-19] MEDS: VITAMIN B-12 1000 MCG PO (08:13)
[2023-08-19] MEDS: PEPCID 20 MG PO (08:13)
[2023-08-19] MEDS: FLUSH (NSS) 1 FLUSH IV (08:13)
[2023-08-19] MEDS: MIRALAX PO (08:13)
[2023-08-19] MEDS: PROTONIX 40 MG PO (08:13)
[2023-08-19] MEDS: COREG 3.125 MG PO ×2 (08:13→20:48)
--- NOTE | 2023-08-19 08:13 | W.PN.NEURO.1 ---
Addendum entered and electronically signed by Donavan Abrams MD 08/19/23 13:09:
I saw and evaluate the patient I reviewed the note by Harriet Romero agree with the findings the following comments:
77-year-old man presenting the hospital with ambulatory dysfunction, proximal weakness bilaterally as well as back pain with the back pain resolving. No acute events overnight patient is tolerating IVIG and steroids fairly well.
Neurologic examination largely unchanged patient has mild neck flexion weakness 4/5, shoulder abduction arm flexion weakness 4/5 in hip flexion weakness 4/5. Distal strength of wrist extension finger flexion and ankle dorsiflexion plantarflexion
5/5.
Obvious left leg edema and asymmetry.
EMG reviewed
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 Some mild improvements with steroids/IVIG. Statin induced is possible but also could be a polymyositis or other antibody mediated myopathy. Lack of distal weakness makes inclusion body myositis and
no characteristic rash of dermatomyositis. Patient has no personal history of malignancy.
Recommendations
-Will give patient and his family contacts for additional subspecialty opinions for neuromuscular neurology at [facility]
-Would continue IVIG and steroids day 3/5
-Will plan for placing on 40 to 50 mg p.o. prednisone following finishing the IV steroids, discussed the side effects with patient and his
-Would plan on outpatient neurology follow-up around 4 weeks after discharge to ascertain if he can be weaned from steroids depending on his response and can consider steroid sparing agent at that time
-In several weeks he will need antibody testing for myopathy but at the present time he is getting IVIG which would confound result
-Ambulation as tolerated physical therapy appreciated
-Would remain off statins indefinitely
Original Note:
Today's Communication / Plan
-
.
Neuro Assessment/Plan
Assessment
This is a 77-year-old man who presented to hospital with leg weakness ambulatory difficulty and also had significant lower back pain that is resolved. Patient relates around 2 months of significant weakness in the legs and walking difficulty and
also has had a couple months of diplopia. No history of malignancy.
EMG supports a myopathy, elevated CK and proximal muscle weakness proximally clinically support a myopathy as well, unlikely that we are dealing with myasthenia gravis.
No characteristic rash of Dermatomyositis. Lack of distal muscle weakness makes inclusion body myositis unlikely.
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
He did have myasthenia and HMG CoA reductase antibodies drawn.
Plan
-Continue 5 day course of IVIG and methylprednisone, today is day 3/5. Will initiate prednisone taper after completion of IV steroids. Continue PPI while on steroids.
-Now that patient has received IVIG we should delay further antibody testing for 1-2 months as abnormal antibody testing now would be confounded by the presence of IVIG.
-For the future should send for: Anti-Nicole , Anti SRP, Anti Mi2, Anti MDA5, Anti NXP2, Anti TIF, Anti CARLYLE, SSA/SSBh, and TRANSFORMER INSPECTOR (May be helpful to to a myositis associated panel test).
-Mestinon discontinued.
-Hold statin therapy and would avoid use of these medications in the future.
-Started cyanocobalamin due to low B12 level.
-Patient receiving folic acid.
-Rehabilitation evaluations and treatment.
-DVT treatment per primary team.
Will continue to follow patient. Thank you.
Subjective/Objective
Subjective Data
Date of Service: August 19, 2023
No acute events overnight. Patient reports feeling mildly stronger in bilateral arms today, bilateral legs are still weak. He denies any headache, dizziness, vision changes, speech/swallow difficulty, nausea, numbness, chest pain, palpitations, and
shortness of breath.
Objective Data
Vital Signs
Temp Pulse Resp BP Pulse Ox
97.5 F 64 18 148/65 97
08/18/23 23:13 08/18/23 23:13 08/18/23 23:13 08/18/23 23:13 08/18/23 23:13
Lab Results
08/19/23 04:29
08/19/23 04:29
Sodium 135 mmol/L (135-145) 08/19/23 04:29
Potassium 4.7 mmol/L (3.5-5.1) 08/19/23 04:29
BUN 45 mg/dl (9-20) H 08/19/23 04:29
Glucose 127 mg/dl (70-99) H 08/19/23 04:29
Calcium 8.8 mg/dl (8.4-10.2) 08/19/23 04:29
Vitamin B12 249 pg/ml (239-931) 08/15/23 05:47
Patient Allergies
gluten Allergy (Verified 08/13/23 17:09)
Unknown
Review of Systems
-
History Source: Patient
EENT: Negative Blurry Vision, Decreased Vision or Swallowing Difficulty
Respiratory: Negative Cough or Trouble Breathing
Cardiac: Negative Chest Pain or Palpitations
Abdomen/GI: Negative Nausea
Genitourinary: Negative Difficulty Voiding
Musculoskeletal: Muscle Weakness
Neuro: Weakness; Negative Dizzy, Headache, Numbness, Ataxia, Tremors or Speech Problem
Physical Exam
-
General: No Apparent Distress
Eyes: No Ptosis and PERRLA
HEENT: Normocephalic and Atraumatic
Neck: Full Range of Motion
Respiratory: No Dyspnea
GI: Non-distended
Extremities: No Clubbing, No Cyanosis and Edema +2 (LLE edema)
Psych: Unremarkable
Extended Neurological Exam
Mood & Affect: Mood Unremarkable and Affect Unremarkable
Attention Span & Concentration: Awake, Alert, Interactive and No Difficulty with 2 Step Request
Memory: Unremarkable (AAOx3) and Able to Recall
Tremor: Hand Tremor Absent and Head Tremor Absent
Involuntary Movement: None
Speech: Quality Unremarkable, Quantity Unremarkable and Rate of Production Unremarkable
Cranial Nerve II: Left Eye: Pupillary Reactivity Unremarkable, Pupillary Size Unremarkable and Visual [place] Intact
Cranial Nerve II: Right Eye: Pupillary Reactivity Unremarkable, Pupillary Size Unremarkable and Visual [place] Intact
Cranial Nerves III, IV, : Extraocular Movement: Extraocular Movement Full in all Directions
Cranial Nerve V: Facial Sensation: Intact to Light Touch
Cranial Nerve VII: Facial Symmetry: Normal Facial Symmetry
Cranial Nerve VIII: Hearing: Unremarkable Hearing to Normal Conversational Volume
Cranial Nerves IX, X: Palate Movement: Palate Elevation Symmetric
Cranial Nerve XII: Tongue Protusion: Midline
Muscle Strength, Overall: Other (b/l shoulder 4-/5, BUE distal strength 5/5, neck ext/flex 5/5, BLE hip flexion 1/5, b/l dorsi/plantarflexion /5)
Coordination: [id number] Testing Unremarkable
Babinski Sign: Absent Bilaterally
Medications
-
Active Medications
Generic Name Dose Route Start Last Admin
Trade Name Freq PRN Reason Stop Dose Admin
Acetaminophen 650 mg 08/13/23 23:32
Acetaminophen 325 Mg Tablet PO 09/10/23 23:31
Q4HPRN PRN
Mild Pain / Temp > 101
Apixaban 10 mg 08/14/23 12:30 08/18/23 20:22
Apixaban (Eliquis) 5 Mg Tablet PO 08/20/23 23:59 10 mg
BID BALWINDER Administration
Apixaban 5 mg 08/21/23 08:00
Apixaban (Eliquis) 5 Mg Tablet PO 09/18/23 07:59
BID BALWINDER
Aspirin 81 mg 08/14/23 08:00 08/18/23 08:23
Aspirin 81 Mg (Enteric Coated) Tablet PO 09/11/23 07:59 81 mg
DAILY BALWINDER Administration
Carvedilol 3.125 mg 08/14/23 20:00 08/18/23 20:21
Carvedilol 3.125 Mg Tablet PO 09/11/23 19:59 3.125 mg
BID BALWINDER Administration
Ceftriaxone Sodium 1,000 mg 08/16/23 14:00 08/18/23 14:12
Ceftriaxone 1000 Mg / 10 Ml Vial IV 1,000 mg
Q24H BALWINDER Administration
Cyanocobalamin 1,000 mcg 08/15/23 18:00 08/18/23 08:22
Cyanocobalamin 1,000 Mcg Tablet PO 09/12/23 17:59 1,000 mcg
DAILY BALWINDER Administration
Docusate Sodium 100 mg 08/14/23 08:00 08/18/23 20:22
Docusate Sodium 100 Mg Capsule PO 09/11/23 07:59 Not Given
BID BALWINDER
Escitalopram Oxalate 10 mg 08/14/23 01:00 08/18/23 20:21
Escitalopram 10 Mg Tablet PO 09/11/23 00:59 10 mg
HS BALWINDER Administration
Famotidine 20 mg 08/17/23 11:00 08/18/23 08:23
Famotidine 20 Mg Tablet PO 09/14/23 10:59 20 mg
DAILY BALWINDER Administration
Folic Acid 0.4 mg 08/15/23 18:00 08/18/23 08:23
Folic Acid 0.4 Mg Tablet PO 09/12/23 17:59 0.4 mg
DAILY BALWINDER Administration
Methylprednisolone Sodium 258 mls @ 258 mls/hr 08/17/23 10:00 08/18/23 10:21
Succinate 1,000 mg/ Sodium IV 08/21/23 10:59 258 mls
Chloride Q24H BALWINDER Administration
Immune Globulin 30 grams in 300 mls @ 0 mls/hr 08/17/23 11:00 08/18/23 14:51
Gammagard IV 08/21/23 11:01 300 mls
PER PROTOCOL BALWINDER Administration
Protocol
As Directed
Morphine Sulfate 2 mg 08/13/23 23:32
Morphine 2 Mg/Ml Syringe IV 08/27/23 23:31
Q4HPRN PRN
Severe Pain
Pantoprazole Sodium 40 mg 08/14/23 08:00 08/18/23 08:22
Pantoprazole 40 Mg Delayed Release Tablet PO 09/11/23 07:59 40 mg
DAILY BALWINDER Administration
Polyethylene Glycol 17 grams 08/14/23 08:00 08/18/23 08:24
Polyethylene Glycol Powder 17 Grams Packet PO 09/11/23 07:59 Not Given
DAILY BALWINDER
Prochlorperazine Edisylate 5 mg 08/13/23 23:32
Prochlorperazine 10 Mg/2 Ml Vial IV 09/10/23 23:31
Q6HPRN PRN
Nausea
Sennosides 17.2 mg 08/14/23 01:00 08/18/23 20:22
Sennosides (Senokot) 8.6 Mg Tablet PO 09/11/23 00:59 Not Given
HS BALWINDER
Sodium Chloride 0 flush 08/13/23 23:00 08/16/23 12:21
Sodium Chloride 0.9% (Flush) Syringe IV 09/10/23 22:59 2 flush
PER PROTOCOL BALWINDER Administration
Sterile Water 10 ml 08/16/23 14:00 08/18/23 14:11
Sterile Water For Injection 10 Ml Vial IV 09/13/23 13:59 10 ml
Q24H BALWINDER Administration
Home Medications
�Medication �Instructions �Recorded
acetaminophen 325 mg tablet 650 mg PO Q4HPRN PRN MILD PAIN 08/13/23
(Tylenol)
amlodipine 5 mg tablet (Norvasc) 5 mg PO HS Blood Pressure 08/13/23
aspirin 81 mg tablet,delayed 81 mg PO DAILY Blood Clot 08/13/23
release Prevention/Tx
bisacodyl 10 mg rectal suppository 10 mg [place] DAILYPRN PRN CONSTIPATION 08/13/23
(Dulcolax (bisacodyl))
calcium carbonate (Tums) 200 mg PO Q8HPRN PRN GERD 08/13/23
escitalopram oxalate 10 mg tablet 10 mg PO HS Depression 08/13/23
(Lexapro)
magnesium hydroxide 400 mg/5 mL 400 mg PO DAILYPRN PRN CONSTIPATION 08/13/23
oral suspension (Milk of Magnesia)
oxycodone 5 mg tablet 5 mg PO Q4HPRN PRN SEVERE PAINS 08/13/23
pantoprazole 40 mg tablet,delayed 40 mg PO DAILY Gastrointestinal 08/13/23
release (Protonix) Issue
polyethylene glycol 3350 17 gram 17 g PO DAILYPRN PRN CONSTIPATION 08/13/23
oral powder packet (Miralax)
prednisone 10 mg tablet 20 mg PO DAILY Anti-Inflammatory 08/13/23
rosuvastatin 5 mg tablet 5 mg PO HS High Cholesterol 08/13/23
sodium phosphates 19 gram-7 118 ml [place] DAILYPRN PRN CONSTIPATION 08/13/23
gram/118 mL enema (Fleet Enema)
[2023-08-19] MEDS: SOLU-MEDROL 258 MG IV (11:15)
[2023-08-19] MEDS: ROCEPHIN 1000 MG IV (13:24)
[2023-08-19] MEDS: STERILE WATER FOR INJECTION 10 ML IV (13:24)
[2023-08-19] MEDS: GAMMAGARD 300 IV (13:39)
--- NOTE | 2023-08-19 14:02 | CON.MD ---
Documented by User: Marika Pimentel PA-C 08/19/23 21:08
Consultation - Medical
-
Referring Provider: Dr. Quin Araiza
Chief Complaint: Weakness, Deconditioning
c
History of Present Illness: Patient is a 77 year old Male with PMH (of ASCVD, hypertension and recent L hip fracture / repair, CKD 3, GERD, Celiac Disease, Cholelithiasis, Lumbar DDD) who presents to ED on 08/13/2023 for LE weakness and inability
to walk. Patient underwent left ORIF on 07/03/23. He was discharged to SNF following his surgery where he has been since that time. He was initially progressing well; however, about 2 nights ago he sat up in bed and felt a sudden, sharp pain in his
lower back. This improved once he returned to a supine position. However, the following day he noted significantly increased weakness in the lower extremities. Was able to stand at walker, but not able to take steps. He denies numbness or
tingling in his limbs. He was found to have elevated creatine kinase and there were concerns regarding myositis. Acetylcholine receptor binding antibodies were 0.0 during this hospitalization. The patient was started on pyridostigmine because of
possible myasthenia gravis.
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
Past Medical History: ASCVD, hypertension and recent L hip fracture / repair, CKD3 GERD, Celiac disease, Lumbar DDD, Cholelithiasis
Procedure History: Left hip ORIF 06/2023, Left Iliac Vein Stenting, Hernia Repairs, Cataracts, Eye Surgery (in childhood)
Family History: Heart disease
Social History:
Functional Level Premorbidly: Independent with all activities
Functional Level Currently: Bed mobility�max assist, transfer sit to stand�mod assist, stand to sit�min assist, ambulates 4 feet time one +3 feet x 1 with rolling walker and min assist x 1
Tobacco: Denies
Alcohol: Denies
Drug use: Denies
Lives with: Spouse
24-hour assistance available:
Number of floors: multilevel
# steps to enter: 4
# steps to second floor:
Potential First floor set up:yes,
Driving: was previously until recent surgery
Occupation: retired
Allergies:
Allergy/AdvReac Type Severity Reaction Status Date / Time
gluten Allergy Unknown Verified 08/13/23 17:09
Review of Systems:
Constitutional: (x) Normal _
Eye: (x) Normal _
Ear/Nose/Throat: (x) Normal _
Respiratory: (x) Normal _
Cardiovascular: (x) Normal _
Gastrointestinal: (x) Normal _
Genitourinary: (x) Normal _
Musculoskeletal: (x)back, weakness, s/p left hip orif
Integumentary: (x) Normal _
Neurologic: (x) Normal _
Psychiatric: (x) Normal _
Endocrine: (x) Normal _
Hematologic/Lymphatic: (x) Normal _
Allergic/Immunologic: (x) Normal _
Medications:
Active Current Visit Medication List
Category Date Time Status
Acetaminophen [Tylenol] Med 08/13/23 23:32 Active
650 mg PO Q4HPRN PRN
Apixaban [Eliquis] Med 08/14/23 12:30 Active
10 mg PO BID
Apixaban [Eliquis] Med 08/21/23 08:00 Active
5 mg PO BID
Aspirin Low Dose EC [Aspir Low (Enteric Coated)] Med 08/14/23 08:00 Active
81 mg PO DAILY
Carvedilol [Coreg] Med 08/14/23 20:00 Active
3.125 mg PO BID
CefTRIAXone [Rocephin] Med 08/16/23 14:00 Active
1,000 mg IV Q24H
Cyanocobalamin [Vitamin B-12] Med 08/15/23 18:00 Active
1,000 mcg PO DAILY
Docusate Sodium [Colace] Med 08/14/23 08:00 Active
100 mg PO BID
Escitalopram Oxalate [Lexapro] Med 08/14/23 01:00 Active
10 mg PO HS
FOLic ACID [Folvite] Med 08/15/23 18:00 Active
0.4 mg PO DAILY
Famotidine [Pepcid] Med 08/17/23 11:00 Active
20 mg PO DAILY
Flush (0.9% Sodium Chloride) [Flush (Nss)] Med 08/13/23 23:00 Active
See Dose Instructions IV PER PROTOCOL
Immune Globulin 30 Grams/300Ml [Gammagard] Med 08/17/23 11:00 Active
30 grams in 300 ml IV PER PROTOCOL
MethylPREDNISolone. [Solu-Medrol] 1,000 mg Med 08/17/23 10:00 Active
0.9% Sodium Chloride 250 ml [Nss] 250 ml
IV Q24H
Morphine Sulfate Med 08/13/23 23:32 Active
2 mg IV Q4HPRN PRN
Pantoprazole [Protonix] Med 08/14/23 08:00 Active
40 mg PO DAILY
Polyethylene Glycol Powder [Miralax] Med 08/14/23 08:00 Active
17 grams PO DAILY
Prochlorperazine [Compazine] Med 08/13/23 23:32 Active
5 mg IV Q6HPRN PRN
Sennosides [Senokot] Med 08/14/23 01:00 Active
17.2 mg PO HS
Sterile Water [Sterile Water For Injection] Med 08/16/23 14:00 Active
10 ml IV Q24H
Vitals:
Temp Pulse Resp BP Pulse Ox
97.9 F 61 18 133/60 96
08/19/23 14:17 08/19/23 14:15 08/19/23 14:17 08/19/23 14:15 08/19/23 14:17
Height 6 ft
Actual Weight 74.928 kg
Body Mass Index (BMI) 22.4
Physical Exam:
General Appearance/Observation: Well-developed, well-nourished individual in no apparent distress.
Pain/Comfort Assessment: Denies
Mood/Affect: Appropriate
Integumentary/Operative Site:
�� Pressure Ulcer Evaluation: absent over heels.
�� Other Type of Wound: absent
��
Eyes: Conjunctiva/Lids: normal ��� Pupils: pupils equal round and reactive to light and Accommodation
Ears/Nose/Throat: oral mucosa moist,� throat clear.������������ Lips/Teeth/Gums: normal
Neck: No muscle spasm or tenderness
Cardiovascular: Heart: regular, no murmur
Pulses: dorsalis pedis 1+ bilaterally
Respiratory: Respiratory Effort/Chest Expansion: normal ������� Auscultation: Clear to auscultation bilaterally
Gastrointestinal: abdomen not tender, no distension, normal abdominal bowel sounds
Genitourinary: No Villareal
Extremities: Edema: Moderate edema of thigh, LLE, feet in comparison to the RLE Cyanosis: None Trophic changes: None
Neurology Exam:
Orientation: Alert, Oriented to self, Time, Place
Memory: Intact for immediate concerns
Higher cortical function
Repetition: Intact
Comprehension: Intact
Two step command: Intact
Naming: Intact
Cranial Nerves:
�� CNII: Pupillary light reflex: Intact��� Visual Field: Intact
�� CN III, IV, : Extraocular muscles: Intact
�� CN V: Facial Sensation at Forehead: Intact, Maxilla: Intact, Mandible: Intact
�� CN VII: Facial movement: Symmetric
�� CN VIII: Hearing: Normal
�� CN IX/X: Speech & swallow: Normal, Position of Uvula: Midline
�� CN XI: Shoulder shrug: Symmetric
�� CN XII: Tongue protrusion: Midline
Sensory:
�� Light touch: Intact in bilateral upper and lower extremities
��
Reflexes:
�� Biceps: 2+ bilaterally
�� Brachioradialis: 2+ bilaterally
�� Triceps: 2+ bilaterally
�� Patellar: absent bilaterally
�� Achilles:absent bilaterally
�� Babinski: Down going bilaterally
�� Clonus: None
�� Cecilio: Negative bilaterally
Cerebellar: Dysmetria/Ataxia: not tested.
Musculoskeletal:
Motor: (Manual muscle scale 0-5)
Muscle SA EF WE EE FF FA HF KE DF EHL PF
Right� 3 4 4 4 3 3 2 2 5 5 5
Left 3 4 4 4 3 3 1 1 0 1 1
Tone: Normal in all extremities
Range of Motion: Passively within normal limits in all extremities
Lab Results
Labs
WBC 11.5 10^3/uL (4.8-10.8) H 08/19/23 04:
RBC 3.98 10^6/uL (4.70-6.10) L 08/19/23 04:
Hgb 13.1 g/dL (13.0-18.0) 08/19/23 04:
Hct 38.0 % (39.0-52.0) L 08/19/23 04:29
MCV 95.5 fL (80.0-94.0) H 08/19/23 04:29
MCH 32.9 pg (27.0-31.0) H 08/19/23 04:29
MCHC 34.5 g/dL (33.0-37.0) 08/19/23 04:
RDW 14.4 % (11.5-14.5) 08/19/23 04:
Plt Count 218 10^3/uL (130-400) 08/19/23 04:29
MPV 10.1 fL (7.4-10.4) 08/19/23 04:29
Abs Immat Gran (auto) 0.1 10^3/uL (0-0.05) H 08/13/23 20:29
Absolute Neuts (auto) 11.9 10^3/uL (1.4-6.5) H 08/13/23 20:
Absolute Lymphs (auto) 1.5 10^3/uL (1.2-3.4) 08/13/23 20:29
Absolute Monos (auto) 0.8 10^3/uL (0.1-0.6) H 08/13/23 20:
Absolute Eos (auto) 0.0 10^3/uL (0-0.7) 08/13/23 20:
Absolute Basos (auto) 0.0 10^3/uL (0-0.2) 08/13/23 20:
Immature Gran % 0.8 % (0-0.5) H 08/13/23 20:
Neutrophils % 83.0 % (42.2-75.2) H 08/13/23 20:
Lymphocytes % 10.7 % (20.5-51.1) L 08/13/23 20:
Monocytes % 5.4 % (1.7-9.3) 08/13/23 20:
Eosinophils % 0.0 % (0-6) 08/13/23 20:
Basophils % 0.1 % (0-2) 08/13/23 20:
Nucleated RBC % 0 % (-) 08/13/23 20:29
ESR 27 mm/hour (0-20) H 08/15/23 16:03
Sodium 135 mmol/L (135-145) 08/19/23 04:29
Potassium 4.7 mmol/L (3.5-5.1) 08/19/23 04:29
Chloride 100 mmol/L (98-107) 08/19/23 04:29
Carbon Dioxide 29 mmol/L (22-30) 08/19/23 04:29
BUN 45 mg/dl (9-20) H 08/19/23 04:29
Creatinine 0.7 mg/dL (0.7-1.3) 08/19/23 04:29
Estimated Creat Clear 94 ml/min 08/19/23 04:29
eGFR > 60.00 08/19/23 04:29
Glucose 127 mg/dl (70-99) H 08/19/23 04:29
Calcium 8.8 mg/dl (8.4-10.2) 08/19/23 04:29
Magnesium 2.1 mg/dl (1.6-2.3) 08/19/23 04:29
Ferritin 338.0 ng/ml (17.9-464.0) 08/15/23 05:47
Total Bilirubin 0.5 mg/dl (0.2-1.3) 08/19/23 04:29
AST 81 U/L (17-59) H 08/19/23 04:29
ALT 123 U/L (0-50) H 08/19/23 04:29
Alkaline Phosphatase 116 U/L (38-126) 08/19/23 04:29
Creatine Kinase 1242 U/L (55-170) H 08/17/23 04:19
C-Reactive Protein 21.60 mg/L (0.0-10.00) H 08/14/23 07:38
Total Protein 6.4 g/dl (6.3-8.2) 08/19/23 04:29
Albumin 2.9 g/dl (3.5-5.0) L 08/19/23 04:29
Vitamin B12 249 pg/ml (239-931) 08/15/23 05:47
Folate 2.7 ng/ml (2.76-20) L 08/15/23 05:47
TSH (Reflex) 2.29 uIU/ml (0.47-4.68) 08/15/23 05:47
Urine Color Yellow 08/13/23 20:29
Urine Clarity Slightly cloudy (Clear) 08/13/23 20:29
Urine pH 6.0 (5.0-9.0) 08/13/23 20:
Ur Specific [place] 1.020 (<1.030) 08/13/23 20:
Urine Ketones Negative (Negative) 08/13/23 20:
Ur Occult Blood Reflex 4+ (Negative) A 08/13/23:
Urine Nitrite (Reflex) Positive (Negative) A 08/13/23 20:
Urine Bilirubin Negative (Negative) 08/13/23 20:
Urine Urobilinogen Negative (Neg - 1+) 08/13/23 20:
Leukocyte Esterase Rfl 2+ (Negative) A 08/13/23 20:
Urine RBC 50-60 /HPF (0-2) A 08/13/23:
Urine WBC (Reflex) 16-20 /HPF (0-5) A 08/13/23 20:
Urine Bacteria (Reflex) Few (Negative) A 08/13/23 20:
Urine Yeast Moderate (Negative) A 08/13/23:
Urine Glucose Negative (Negative) 08/13/23:
Urine Albumin (Reflex) Trace (Neg - Trace) 08/13/23 20:
Acetylchol Rcpt Bind Ab 0.0 nmol/L (0.0-0.4) 08/15/23 05:47
�
Diagnostic Results: as per HPI
Assessment Patient is a 77 year old Male with PMH (of ASCVD, hypertension and recent L hip fracture / repair, CKD 3, GERD, Celiac Disease, Cholelithiasis, Lumbar DDD) with LE weakness and inability to walk. Patient underwent left ORIF on 07/03/23.
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 Some mild improvements with steroids/IVIG.
Plan
PT/OT to increase independence with ADLs, improve balance, coordination, endurance, strength, mobility, community reintegration, decreased burden of care on others and family education
Left Hip Fracture s/p ORIF 07/03/2023 - Stable--LLE edema--Still with significant edema in the LLE compared to the Right Lower extremity. US this admission actually showed RIGHT DVT of the posterior tibial vein--Started empiric Eliquis 10 mg BID x7
days, then 5 mg BID for 3 months--Dr. Liu Informed to repeat LE US in 4 weeks after discharge to evaluate DVT--PT / OT as noted above.
Ambulatory Dysfunction/Inflammatory myopathy. 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 Some mild improvements with steroids/IVIG. Statin induced is possible but
also could be a polymyositis or other antibody mediated myopathy. Lack of distal weakness makes inclusion body myositis and no characteristic rash of dermatomyositis. Patient has no personal history of malignancy.
Continue IV Ig and steroids day 3/5. Prednisone 40 to 50 mg p.o. following IV steroids completion.. OP neurology follow-up to ascertain if can be weaned from steroids.
ASCVD- Stable---Continue current med regimen including ASA,.
Chronic Cholelithiasis / Choledocholithiasis--Seen on imaging as early as April 2023--Known to GI with plans for outpatient follow-up / eventual ERCP/EUS--Has / has had no symptoms of abdominal pain, N/V, etc--Follow for any changes.
CKD III- Stable--Renal function at baseline, with Cr at 0.7
Acute DEEP VENOUS THROMBOSIS in the RIGHT POSTERIOR TIBIAL VEIN--Eliquis 10mg bid x 7 days then 5mg bid x 3 months
HTN: continue medications, monitor closely
Anemia: Likely multifactorial.� Continue to monitor.
Psych: Psychology consult.� Monitor mood, lexapro
Skin: monitor for pressure sores/rashes/lesions.
Pain: acetaminophen as needed.
Bowel: Colace and Senna, PRN bisacodyl.
Bladder: Time void, PVRs, PRN straight cath.
GI Prophylaxis: Pepcid
DVT Prophylaxis: Mechanical and Eliquis
Pulmonary: Incentive spirometry
Safety: Continue to reinforce assistance with all transfers.
Code Status:� Full code
Dispo (date/plan/equipment needs): Home with family care.� Social history reviewed.
Functional and Medical Goals: Modified Independent with ADL�s, ambulation, transfers
Discharge Destination: Acute inpatient Rehabilitation
Summary of recommendations: Would benefit from PT/OT in an acute inpatient rehabilitation to improve endurance, strength, coordination. Currently functional with Bed mobility�max assist, transfer sit to stand�mod assist, stand to sit�min assist, She
is CADambulates 40 feet time one +3 feet x 1 with rolling walker and min assist x 1
Thank you for allowing me to care for your patient. Please contact me with any questions or concerns.
This note was dictated using a voice recognition system. Please excuse any typographical errors from property loss insurance claim adjuster. If you believe there are any discrepancies, please notify our office.

Documented by User: Torrey Arias MD 08/20/23 17:34
Consultation - Medical
-
Referring Provider: Dr. Quin Araiza
Chief Complaint: Weakness, Deconditioning
History of Present Illness: Patient is a 77 year old Male with PMH (of ASCVD, hypertension and recent L hip fracture / repair, CKD 3, GERD, Celiac Disease, Cholelithiasis, Lumbar DDD) who presents to ED on 08/13/2023 for LE weakness and inability
to walk. Patient underwent left ORIF on 07/03/23. He was discharged to SNF following his surgery where he has been since that time. He was initially progressing well; however, about 2 nights ago he sat up in bed and felt a sudden, sharp pain in his
lower back. This improved once he returned to a supine position. However, the following day he noted significantly increased weakness in the lower extremities. Was able to stand at walker, but not able to take steps. He denies numbness or
tingling in his limbs. He was found to have elevated creatine kinase and there were concerns regarding myositis. Acetylcholine receptor binding antibodies were 0.0 during this hospitalization. The patient was started on pyridostigmine because of
possible myasthenia gravis.
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
Past Medical History: ASCVD, hypertension and recent L hip fracture / repair, CKD3 GERD, Celiac disease, Lumbar DDD, Cholelithiasis
Procedure History: Left hip ORIF 06/2023, Left Iliac Vein Stenting, Hernia Repairs, Cataracts, Eye Surgery (in childhood)
Family History: Heart disease
Social History:
Functional Level Premorbidly: Independent with all activities
Functional Level Currently: Bed mobility�max assist, transfer sit to stand�mod assist, stand to sit�min assist, ambulates 4 feet time one +3 feet x 1 with rolling walker and min assist x 1
Tobacco: Denies
Alcohol: Denies
Drug use: Denies
Lives with: Spouse
24-hour assistance available: Yes
Number of floors: multilevel
# steps to enter: 4
# steps to second floor: Full flight
Potential First floor set up:yes
Driving: was previously until recent surgery
Occupation: retired
Allergies:
Allergy/AdvReac Type Severity Reaction Status Date / Time
gluten Allergy Unknown Verified 08/13/23 17:09
Review of Systems:
Constitutional: (x) abNormal _fatigue
Eye: (x) Normal _
Ear/Nose/Throat: (x) Normal _
Respiratory: (x) Normal _
Cardiovascular: (x) Normal _
Gastrointestinal: (x) Normal _
Genitourinary: (x) Normal _
Musculoskeletal: (x)back, weakness, s/p left hip orif
Integumentary: (x) Normal _
Neurologic: (x) Normal _
Psychiatric: (x) Normal _
Endocrine: (x) Normal _
Hematologic/Lymphatic: (x) Normal _
Allergic/Immunologic: (x) Normal _
Medications:
Active Current Visit Medication List
Category Date Time Status
Acetaminophen [Tylenol] Med 08/13/23 23:32 Active
650 mg PO Q4HPRN PRN
Apixaban [Eliquis] Med 08/14/23 12:30 Active
10 mg PO BID
Apixaban [Eliquis] Med 08/21/23 08:00 Active
5 mg PO BID
Aspirin Low Dose EC [Aspir Low (Enteric Coated)] Med 08/14/23 08:00 Active
81 mg PO DAILY
Carvedilol [Coreg] Med 08/14/23 20:00 Active
3.125 mg PO BID
CefTRIAXone [Rocephin] Med 08/16/23 14:00 Active
1,000 mg IV Q24H
Cyanocobalamin [Vitamin B-12] Med 08/15/23 18:00 Active
1,000 mcg PO DAILY
Docusate Sodium [Colace] Med 08/14/23 08:00 Active
100 mg PO BID
Escitalopram Oxalate [Lexapro] Med 08/14/23 01:00 Active
10 mg PO HS
FOLic ACID [Folvite] Med 08/15/23 18:00 Active
0.4 mg PO DAILY
Famotidine [Pepcid] Med 08/17/23 11:00 Active
20 mg PO DAILY
Flush (0.9% Sodium Chloride) [Flush (Nss)] Med 08/13/23 23:00 Active
See Dose Instructions IV PER PROTOCOL
Immune Globulin 30 Grams/300Ml [Gammagard] Med 08/17/23 11:00 Active
30 grams in 300 ml IV PER PROTOCOL
MethylPREDNISolone. [Solu-Medrol] 1,000 mg Med 08/17/23 10:00 Active
0.9% Sodium Chloride 250 ml [Nss] 250 ml
IV Q24H
Morphine Sulfate Med 08/13/23 23:32 Active
2 mg IV Q4HPRN PRN
Pantoprazole [Protonix] Med 08/14/23 08:00 Active
40 mg PO DAILY
Polyethylene Glycol Powder [Miralax] Med 08/14/23 08:00 Active
17 grams PO DAILY
Prochlorperazine [Compazine] Med 08/13/23 23:32 Active
5 mg IV Q6HPRN PRN
Sennosides [Senokot] Med 08/14/23 01:00 Active
17.2 mg PO HS
Sterile Water [Sterile Water For Injection] Med 08/16/23 14:00 Active
10 ml IV Q24H
Vitals:
Temp Pulse Resp BP Pulse Ox
97.9 F 61 18 133/60 96
08/19/23 14:17 08/19/23 14:15 08/19/23 14:17 08/19/23 14:15 08/19/23 14:17
Height 6 ft
Actual Weight 74.928 kg
Body Mass Index (BMI) 22.4
Physical Exam:
General Appearance/Observation: Well-developed, well-nourished male in no apparent distress.
Pain/Comfort Assessment: Denies
Mood/Affect: Appropriate
Integumentary/Operative Site:
�� Pressure Ulcer Evaluation: absent over heels.
Eyes: Conjunctiva/Lids: normal ��� Pupils: pupils equal round and reactive to light and Accommodation
Ears/Nose/Throat: oral mucosa moist,� throat clear.������������ Lips/Teeth/Gums: normal
Neck: No muscle spasm or tenderness
Cardiovascular: Heart: regular, no murmur
Pulses: dorsalis pedis 1+ bilaterally
Respiratory: Respiratory Effort/Chest Expansion: normal ������� Auscultation: Clear to auscultation bilaterally
Gastrointestinal: abdomen not tender, no distension, normal abdominal bowel sounds
Genitourinary: No Villareal
Extremities: Edema: Moderate pitting edema of LLE, slight pitting edema in RLE Cyanosis: None Trophic changes: None
Neurology Exam:
Orientation: Alert, Oriented to self, Time, Place
Memory: Intact for immediate concerns
Repetition: Intact
Comprehension: Intact
Two step command: Intact
Naming: Intact
Cranial Nerves:
�� CNII: Pupillary light reflex: Intact��� Visual Field: Intact
�� CN III, IV, : Extraocular muscles: Intact
�� CN V: Facial Sensation at Forehead: Intact, Maxilla: Intact, Mandible: Intact
�� CN VII: Facial movement: Symmetric
�� CN VIII: Hearing: Normal
�� CN IX/X: Speech & swallow: Normal, Position of Uvula: Midline
�� CN XI: Shoulder shrug: Symmetric
�� CN XII: Tongue protrusion: Midline
Sensory:
�� Light touch: Intact in bilateral upper and lower extremities, except for decreased sensation in the first dorsal webspace of the left foot
��
Reflexes:
�� Biceps: 2+ bilaterally
�� Brachioradialis: 2+ bilaterally
�� Triceps: 2+ bilaterally
�� Patellar: absent bilaterally
�� Achilles:absent bilaterally
�� Babinski: Down going bilaterally
�� Clonus: None
�� Cecilio: Negative bilaterally
Cerebellar: Dysmetria/Ataxia: not tested.
Musculoskeletal: Motor: (Manual muscle scale 0-5)
Muscle SA EF WE EE FF FA HF KE DF EHL PF
Right� 2 4 4 3 3 3 2 2 5 5 5
Left 2 4 4 3 3 3 1 2 1 1 1
Tone: Normal in all extremities
Range of Motion: Passively within normal limits in all extremities
Lab Results
Labs
WBC 11.5 10^3/uL (4.8-10.8) H 08/19/23 04:29
RBC 3.98 10^6/uL (4.70-6.10) L 08/19/23 04:29
Hgb 13.1 g/dL (13.0-18.0) 08/19/23 04:29
Hct 38.0 % (39.0-52.0) L 08/19/23 04:29
MCV 95.5 fL (80.0-94.0) H 08/19/23 04:29
MCH 32.9 pg (27.0-31.0) H 08/19/23 04:29
MCHC 34.5 g/dL (33.0-37.0) 08/19/23 04:29
RDW 14.4 % (11.5-14.5) 08/19/23 04:
Plt Count 218 10^3/uL (130-400) 08/19/23 04:29
MPV 10.1 fL (7.4-10.4) 08/19/23 04:
Abs Immat Gran (auto) 0.1 10^3/uL (0-0.05) H 08/13/23 20:
Absolute Neuts (auto) 11.9 10^3/uL (1.4-6.5) H 08/13/23 20:
Absolute Lymphs (auto) 1.5 10^3/uL (1.2-3.4) 08/13/23:
Absolute Monos (auto) 0.8 10^3/uL (0.1-0.6) H 08/13/23 20:
Absolute Eos (auto) 0.0 10^3/uL (0-0.7) 08/13/23:
Absolute Basos (auto) 0.0 10^3/uL (0-0.2) 08/13/23:
Immature Gran % 0.8 % (0-0.5) H 08/13/23:
Neutrophils % 83.0 % (42.2-75.2) H 08/13/23:
Lymphocytes % 10.7 % (20.5-51.1) L 08/13/23:
Monocytes % 5.4 % (1.7-9.3) 08/13/23:
Eosinophils % 0.0 % (0-6) 08/13/23:
Basophils % 0.1 % (0-2) 08/13/23:
Nucleated RBC % 0 % (-) 08/13/23:
ESR 27 mm/hour (0-20) H 08/15/23 16:03
Sodium 135 mmol/L (135-145) 08/19/23 04:
Potassium 4.7 mmol/L (3.5-5.1) 08/19/23 04:29
Chloride 100 mmol/L (98-107) 08/19/23 04:29
Carbon Dioxide 29 mmol/L (22-30) 08/19/23 04:29
BUN 45 mg/dl (9-20) H 08/19/23 04:29
Creatinine 0.7 mg/dL (0.7-1.3) 08/19/23 04:29
Estimated Creat Clear 94 ml/min 08/19/23 04:29
eGFR > 60.00 08/19/23 04:29
Glucose 127 mg/dl (70-99) H 08/19/23 04:29
Calcium 8.8 mg/dl (8.4-10.2) 08/19/23 04:29
Magnesium 2.1 mg/dl (1.6-2.3) 08/19/23 04:29
Ferritin 338.0 ng/ml (17.9-464.0) 08/15/23 05:47
Total Bilirubin 0.5 mg/dl (0.2-1.3) 08/19/23 04:29
AST 81 U/L (17-59) H 08/19/23 04:29
ALT 123 U/L (0-50) H 08/19/23 04:29
Alkaline Phosphatase 116 U/L (38-126) 08/19/23 04:29
Creatine Kinase 1242 U/L (55-170) H 08/17/23 04:19
C-Reactive Protein 21.60 mg/L (0.0-10.00) H 08/14/23 07:38
Total Protein 6.4 g/dl (6.3-8.2) 08/19/23 04:29
Albumin 2.9 g/dl (3.5-5.0) L 08/19/23 04:29
Vitamin B12 249 pg/ml (239-931) 08/15/23 05:47
Folate 2.7 ng/ml (2.76-20) L 08/15/23 05:47
TSH (Reflex) 2.29 uIU/ml (0.47-4.68) 08/15/23 05:47
Urine Color Yellow 08/13/23 20:
Urine Clarity Slightly cloudy (Clear) 08/13/23:
Urine pH 6.0 (5.0-9.0) 08/13/23 20:
Ur Specific [place] 1.020 (<1.030) 08/13/23 20:
Urine Ketones Negative (Negative) 08/13/23 20:
Ur Occult Blood Reflex 4+ (Negative) A 08/13/23:
Urine Nitrite (Reflex) Positive (Negative) A 08/13/23:
Urine Bilirubin Negative (Negative) 08/13/23:
Urine Urobilinogen Negative (Neg - 1+) 08/13/23:
Leukocyte Esterase Rfl 2+ (Negative) A 08/13/23:
Urine RBC 50-60 /HPF (0-2) A 08/13/23:
Urine WBC (Reflex) 16-20 /HPF (0-5) A 08/13/23:
Urine Bacteria (Reflex) Few (Negative) A 08/13/23:
Urine Yeast Moderate (Negative) A 08/13/23:
Urine Glucose Negative (Negative) 08/13/23:
Urine Albumin (Reflex) Trace (Neg - Trace) 08/13/23:
Acetylchol Rcpt Bind Ab 0.0 nmol/L (0.0-0.4) 08/15/23 05:47
�
Diagnostic Results: as per HPI
Assessment Patient is a 77 year old Male with PMH (of ASCVD, hypertension and recent L hip fracture / repair, CKD 3, GERD, Celiac Disease, Cholelithiasis, Lumbar DDD) with LE weakness and inability to walk. Patient underwent left ORIF on 07/03/23.
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 Some mild improvements with steroids/IVIG.
Plan
PT/OT to increase independence with ADLs, improve balance, coordination, endurance, strength, mobility, community reintegration, decreased burden of care on others and family education
Left Hip Fracture s/p ORIF 07/03/2023 - Stable--LLE edema--Still with significant edema in the LLE compared to the Right Lower extremity. US this admission actually showed RIGHT DVT of the posterior tibial vein--Started empiric Eliquis 10 mg BID x7
days, then 5 mg BID for 3 months--Dr. Liu Informed to repeat LE US in 4 weeks after discharge to evaluate DVT--PT / OT as noted above.
Ambulatory Dysfunction/Inflammatory myopathy. 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 Some mild improvements with steroids/IVIG. Statin induced is possible but
also could be a polymyositis or other antibody mediated myopathy. Lack of distal weakness makes inclusion body myositis and no characteristic rash of dermatomyositis. Patient has no personal history of malignancy.
Continue IV Ig and steroids for 5 days. Prednisone 40 to 50 mg p.o. following IV steroids completion.. OP neurology follow-up to ascertain if can be weaned from steroids.
ASCVD- Stable---Continue current med regimen including ASA,.
Chronic Cholelithiasis / Choledocholithiasis--Seen on imaging as early as April 2023--Known to GI with plans for outpatient follow-up / eventual ERCP/EUS--Has / has had no symptoms of abdominal pain, N/V, etc--Follow for any changes.
CKD III- Stable--Renal function at baseline, with Cr at 0.7
Acute DEEP VENOUS THROMBOSIS in the RIGHT POSTERIOR TIBIAL VEIN--Eliquis 10mg bid x 7 days then 5mg bid x 3 months
Bilateral lower extremity edema: Thigh-high teds bilaterally.
HTN: continue medications, monitor closely
Anemia: Likely multifactorial.� Continue to monitor.
Psych: Psychology consult.� Monitor mood, lexapro
Skin: monitor for pressure sores/rashes/lesions.
Pain: acetaminophen as needed.
Bowel: Colace and Senna, PRN bisacodyl.
Bladder: Time void, PVRs, PRN straight cath.
GI Prophylaxis: Pepcid
Pulmonary: Incentive spirometry
Safety: Continue to reinforce assistance with all transfers.
Code Status:� Full code
Dispo (date/plan/equipment needs): Home with family care.� Social history reviewed.
Functional and Medical Goals: Modified Independent with ADL�s, ambulation, transfers
Discharge Destination: Acute inpatient Rehabilitation
Summary of recommendations: Would benefit from PT/OT in an acute inpatient rehabilitation to improve endurance, strength, coordination. Currently functional with Bed mobility�max assist, transfer sit to stand�mod assist, stand to sit�min
assist,ambulates 40 feet time one +3 feet x 1 with rolling walker and min assist x 1
Ambulatory Dysfunction/Inflammatory myopathy. 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 Some mild improvements with steroids/IVIG. Statin induced is possible but
also could be a polymyositis or other antibody mediated myopathy. Lack of distal weakness makes inclusion body myositis and no characteristic rash of dermatomyositis. Patient has no personal history of malignancy.
- IVIg and steroids for 5 days. Prednisone 40 to 50 mg p.o. following IV steroids completion.. OP neurology follow-up to ascertain if can be weaned from steroids.
CKD III- Stable--Renal function at baseline, with Cr at 0.7
Acute DEEP VENOUS THROMBOSIS in the RIGHT POSTERIOR TIBIAL VEIN--Eliquis 10mg bid x 7 days then 5mg bid x 3 months
Bilateral lower extremity edema: Thigh-high teds bilaterally.
Anemia: Likely multifactorial.� Continue to monitor.
Bowel: Colace and Senna, PRN bisacodyl.
Bladder: Time void, PVRs, PRN straight cath.
Thank you for allowing me to care for your patient. Please contact me with any questions or concerns.
Attending Statement:
I saw and examined the patient on 08/20/2023. Reviewed care plan with patient, therapy, nursing, and physician certified first assistant. I agree with the above subjective and physical exam, and plan as documented by PA Cecille Margarito with adjustments made as
necessary.
--- NOTE | 2023-08-19 15:43 | W.PN.HOSP.TC ---
Today's Communication/Plan
-
finish IVIG and steroids
VSE in AM
Assessment / Plan
Assessment / Plan
HPI: 77 yo M with PMH significant for ASCVD, hypertension and recent L hip fracture / repair who presented to ED complaining of LE weakness and inability to walk.
History obtained from patient and his at the bedside. Patient was hospitalized here in June for L hip fracture and underwent ORIF on 07/03/23. He had had swelling of the LLE for several months prior to that and had no pain, etc. He was
discharged to SNF following his surgery where he has been since that time. 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 This improved once he returned to a supine
position. However, the following day he noted significant weakness in the LEs. Patient was able to stand with assistance / stand at a walker; however, he was unable to take even a single step.The night prior admission, he noted some pain in the R
hip / greater trochanter area. He continued to have weakness in the legs and presented to the ED for further evaluation.
Patient denies to any significant low back pain, hip pain, radicular pain, etc. He has had no significant fall / trauma since his recent hospitalization.
Lumbar discogenic degenerative disease with possibility of Acute Herniation with Lumbar Central canal stenosis and Lateral Foraminal Stenosis and Bilateral LE Weakness---No bowel or bladder incontinence--apprec neurosurgery and neurology--Spinal
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
noted high at 1300, hence cannot r/o statin induced myopathy, will hold statin/Crestor-- follow CPK level--PT/OT--added speech--VSE in AM
Left Hip Fracture s/p ORIF 07/03/2023 - Stable--LLE edema--Still with significant edema in the LLE compared to the R--BL LE US this admission actually showed RIGHT DVT of the posterior tibial vein--Started empiric Eliquis 10 mg BID x7 days, then 5 mg
BID for 3 months--Dr. Liu Informed to repeat LE US in 4 weeks after discharge to evaluate DVT--PT/OT as noted above.
recent diagnosis of possible PMR (with presentation of inability to lift BL arms) and pt was started with prednisone [address] Goncalves from rehab--Mild leucocytosis likely due to steroid--ESR/CRP in the 20's--Per , his BL Upper extremities
weakness has improved since initiation of prednisone about 1 week SYSTEMS ADMINISTRATOR--However, does not feel current BL LE weakness is related to PMR given it started acutely after bad body positioning/maneuver--stopped SYSTEMS ADMINISTRATOR prednisone 20 mg daily and getting
pulse dose steroids--Rec outpt Rheum eval- informed
ASCVD- Stable---Continue current med regimen including ASA, etc.
Chronic Cholelithiasis / Choledocholithiasis--Seen on imaging as early as April 2023--Known to GI with plans for outpatient follow-up / eventual ERCP/EUS--Has / has had no symptoms of abdominal pain, N/V, etc--Follow for any changes.
Moderate Malnutrition in the context of social circumstances
CKD III- Stable--Renal function at baseline, with SCr at 0.7
Acute DEEP VENOUS THROMBOSIS in the RIGHT POSTERIOR TIBIAL VEIN--eliquis
DVT Prophylaxis: Eliquis
Code Status: Full
Anticipated Discharge: > 48 hours
Subjective/Interval History
-
Date of Service: August 19, 2023
pt without c/o
Objective Data
-
Labs:
Laboratory Results
08/19/23
04:29
WBC 11.5 H
Hgb 13.1
Hct 38.0 L
Plt Count 218
Sodium 135
Potassium 4.7
Chloride 100
Carbon Dioxide 29
BUN 45 H
Creatinine 0.7
Glucose 127 H
Calcium 8.8
Total Bilirubin 0.5
AST 81 H
ALT 123 H
Alkaline Phosphatase 116
Vital Signs:
max temp for 24 hours
08/18/23
15:01
Temp 97.6 F
Vital Signs
Temp Pulse Resp BP Pulse Ox
97.8 F 60 16 136/67 96
08/19/23 15:24 08/19/23 15:22 08/19/23 14:48 08/19/23 15:22 08/19/23 14:48
I&O
08/18/23 08/19/23 08/20/23
06:59 06:59 06:59
Intake Total 420 / 420 620 / 620
Output Total 940 / 940 1170 / 1170
Balance -520 / -520 -550 / -550
Review of Systems
-
All other systems: Reviewed and negative
Physical Exam
-
General: Well Developed, Well Nourished and No Apparent Distress
HEENT: Normocephalic and Atraumatic
Respiratory: Clear to Auscultation; Negative Wheezes, Rales or Rhonchi
Cardiac: Regular Rhythm and S1/S2; Negative Murmur
GI: Soft, Nontender, Nondistended and Normal Bowel Sounds
Musculoskeletal: No Clubbing and No Cyanosis; Negative No Edema (3+ LE edema bilaterally)
Neuro: Awake
--- NOTE | 2023-08-19 16:08 | CM ---
Patient seen at bedside with physician. patient stated that his is now in the ED with a possible blockage. Patient interested in [facility] assessment with PM&R pending acceptance. CM will continue to follow for discharge planning needs.
Plan; [facility] vs SNF
--- NOTE | 2023-08-19 16:56 | PTCARENOTE ---
Pt completed IV IG infusion at this time without any adverse affects, will monitor.
[2023-08-19] MEDS: SENOKOT PO (20:48)
[2023-08-19] MEDS: LEXAPRO 10 MG PO (20:49)
[2023-08-20] VITALS (12 sets, daily range): BP systolic 118–186; BP diastolic 62–89; PULSE 64–67; O2SAT 98; BMI 22.3
--- NOTE | 2023-08-20 08:01 | W.PN.NEURO.1 ---
Addendum entered and electronically signed by Donavan Abrams MD 08/20/23 13:37:
I saw and evaluate the patient I reviewed the note by Harriet Romero agree with the findings with the following comments:
77-year-old man presented to hospital with back pain ambulatory difficulty and generalized proximal bilateral weakness. Testing results here have supported inflammatory myopathy. Patient is showing clear improvements in ability to walk and
ambulate, he is tolerating medications well no new complaints, did have video swallow yesterday with evidence of pharyngeal dysphagia. Patient has no diplopia, no muscle pain no fevers or rashes.
Neurologic examination with some mild improvement in neck flexion strength 5/5, there is still weakness in the proximal limbs and upper and lower extremities shoulder abduction arm flexion 4/5 hip flexion 3/5 bilaterally ankle dorsiflexion
plantarflexion 4/5 bilateral, normal distal strength in the hands wrists fingers and thumbs bilaterally.
Assessment: Inflammatory myopathy, improving. Does involve dysphagia, proximal weakness, previously had diplopia but none now.
Recommendations
-Continue IVIG and methylprednisolone day 06/17
-We will move to p.o. prednisone on Wednesday
-Discussed recommendation that he should follow with neurology here at [facility] but should also speak a subspecialty opinion to neuromuscular neurology at either [facility] or [place]
-Further testing in the future would include extensive antibody testing, possibly a muscle biopsy which I discussed with patient
-Modifeid diet due to dysphagia
Original Note:
Today's Communication / Plan
-
.
Neuro Assessment/Plan
Assessment
This is a 77-year-old man who presented to hospital with leg weakness ambulatory difficulty and also had significant lower back pain that is resolved. Patient relates around 2 months of significant weakness in the legs and walking difficulty and
also has had a couple months of diplopia. No history of malignancy.
EMG supports a myopathy, elevated CK and proximal muscle weakness proximally clinically support a myopathy as well, unlikely that we are dealing with myasthenia gravis.
Video swallow evaluation on 08/20/23 demonstrates moderate pharyngeal dysphagia characterized by tongue base and pharyngeal weakness.
No characteristic rash of Dermatomyositis. Lack of distal muscle weakness makes inclusion body myositis unlikely.
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
He did have myasthenia and HMG CoA reductase antibodies drawn.
Plan
-Continue 5 day course of IVIG and methylprednisone, today is day 4/5. Will initiate prednisone taper after completion of IV steroids. Continue PPI while on steroids.
-Now that patient has received IVIG we should delay further antibody testing for 1-2 months as abnormal antibody testing now would be confounded by the presence of IVIG.
-For the future should send for: Anti-Nicole , Anti SRP, Anti Mi2, Anti MDA5, Anti NXP2, Anti TIF, Anti CARLYLE, SSA/SSBh, and CARDIOLOGY CLINICAL NURSE SPECIALIST (May be helpful to to a myositis associated panel test).
-Mestinon discontinued.
-Hold statin therapy and would avoid use of these medications in the future.
-Modified dysphagia diet per ST.
-Started cyanocobalamin due to low B12 level.
-Patient receiving folic acid.
-Rehabilitation evaluations and treatment.
-DVT treatment per primary team.
-Patient should follow-up with a Neuromuscular specialist at [facility] or [place] as an outpatient, will provide patient with referral info.
Will continue to follow patient. Thank you.
Subjective/Objective
Subjective Data
Date of Service: August 20, 2023
No acute events overnight. Patient reports feeling stronger today. He was able to walk from his bed to a stretcher with a walker and didn't feel like his legs were going to give out on him, his arms also feel stronger too.
Objective Data
Vital Signs
Temp Pulse Resp BP Pulse Ox
97.7 F 67 18 144/67 97
08/19/23 23:06 08/19/23 23:06 08/19/23 23:06 08/19/23 23:06 08/19/23 23:06
Lab Results
08/19/23 04:29
08/19/23 04:29
Sodium 135 mmol/L (135-145) 08/19/23 04:29
Potassium 4.7 mmol/L (3.5-5.1) 08/19/23 04:29
BUN 45 mg/dl (9-20) H 08/19/23 04:29
Glucose 127 mg/dl (70-99) H 08/19/23 04:29
Calcium 8.8 mg/dl (8.4-10.2) 08/19/23 04:29
Vitamin B12 249 pg/ml (239-931) 08/15/23 05:47
Patient Allergies
gluten Allergy (Verified 08/13/23 17:09)
Unknown
Review of Systems
-
History Source: Patient
EENT: Negative Blurry Vision, Decreased Vision or Swallowing Difficulty
Respiratory: Negative Cough or Trouble Breathing
Cardiac: Negative Chest Pain or Palpitations
Abdomen/GI: Negative Nausea
Genitourinary: Negative Incontinence or Difficulty Voiding
Musculoskeletal: Muscle Weakness; Negative Myalgias
Neuro: Headache and Weakness; Negative Dizzy, Numbness, Ataxia, Tremors or Speech Problem
Physical Exam
-
General: No Apparent Distress
Eyes: No Ptosis and PERRLA
HEENT: Normocephalic and Atraumatic
Neck: Full Range of Motion
Respiratory: No Dyspnea
GI: Non-distended
Extremities: No Clubbing, No Cyanosis and Edema +2 (LLE)
Psych: Unremarkable
Extended Neurological Exam
Mood & Affect: Mood Unremarkable and Affect Unremarkable
Attention Span & Concentration: Awake, Alert and Interactive
Memory: Unremarkable (AAOx3) and Able to Recall
Tremor: Hand Tremor Absent and Head Tremor Absent
Involuntary Movement: None
Speech: Quality Unremarkable, Quantity Unremarkable and Rate of Production Unremarkable
Cranial Nerve II: Left Eye: Pupillary Reactivity Unremarkable, Pupillary Size Unremarkable and Visual Tomlin Intact
Cranial Nerve II: Right Eye: Pupillary Reactivity Unremarkable, Pupillary Size Unremarkable and Visual Tomlin Intact
Cranial Nerves III, IV, : Extraocular Movement: Extraocular Movement Full in all Directions
Cranial Nerve V: Facial Sensation: Intact to Light Touch
Cranial Nerve VII: Facial Symmetry: Normal Facial Symmetry
Cranial Nerve VIII: Hearing: Unremarkable Hearing to Normal Conversational Volume
Cranial Nerves IX, X: Palate Movement: Palate Elevation Symmetric
Cranial Nerve XII: Tongue Protusion: Midline
Muscle Strength, Overall: Other (B/L shoulder extension 06/17. R hip ext 2/5, L hip ext 2-/5. Hand shift superintendent caustic cresylate 07/17, b/l dorsi/plantarflexion 07/17, head/neck ext/flex 07/17.)
Pronator Drift: No Drift in Upper Extremities, Drift in Left Lower Extremity and Drift in Right Lower Extremity
Coordination: [id number] Testing Unremarkable
Babinski Sign: Absent Bilaterally
Data Reviewed
-
MRI Thoracic Spine: Report Reviewed and Image Reviewed
MRI Lumbar Spine: Report Reviewed and Image Reviewed
Medical Test Reports: Report Reviewed (EMG)
Labs: Report Reviewed
Reviewed with: Physician and Patient
Medications
-
Active Medications
Generic Name Dose Route Start Last Admin
Trade Name Freq PRN Reason Stop Dose Admin
Acetaminophen 650 mg 08/13/23 23:32
Acetaminophen 325 Mg Tablet PO 09/10/23 23:31
Q4HPRN PRN
Mild Pain / Temp > 101
Apixaban 10 mg 08/14/23 12:30 08/20/23 08:31
Apixaban (Eliquis) 5 Mg Tablet PO 08/20/23 23:59 10 mg
BID BALWINDER Administration
Apixaban 5 mg 08/21/23 08:00
Apixaban (Eliquis) 5 Mg Tablet PO 09/18/23 07:59
BID BALWINDER
Aspirin 81 mg 08/14/23 08:00 08/20/23 08:31
Aspirin 81 Mg (Enteric Coated) Tablet PO 09/11/23 07:59 81 mg
DAILY BALWINDER Administration
Carvedilol 3.125 mg 08/14/23 20:00 08/20/23 08:31
Carvedilol 3.125 Mg Tablet PO 09/11/23 19:59 3.125 mg
BID BALWINDER Administration
Ceftriaxone Sodium 1,000 mg 08/16/23 14:00 08/19/23 13:24
Ceftriaxone 1000 Mg / 10 Ml Vial IV 1,000 mg
Q24H BALWINDER Administration
Cyanocobalamin 1,000 mcg 08/15/23 18:00 08/20/23 08:32
Cyanocobalamin 1,000 Mcg Tablet PO 09/12/23 17:59 1,000 mcg
DAILY BALWINDER Administration
Docusate Sodium 100 mg 08/14/23 08:00 08/20/23 08:31
Docusate Sodium 100 Mg Capsule PO 09/11/23 07:59 100 mg
BID BALWINDER Administration
Escitalopram Oxalate 10 mg 08/14/23 01:00 08/19/23 20:49
Escitalopram 10 Mg Tablet PO 09/11/23 00:59 10 mg
HS BALWINDER Administration
Famotidine 20 mg 08/17/23 11:00 08/20/23 08:32
Famotidine 20 Mg Tablet PO 09/14/23 10:59 20 mg
DAILY BALWINDER Administration
Folic Acid 0.4 mg 08/15/23 18:00 08/20/23 08:32
Folic Acid 0.4 Mg Tablet PO 09/12/23 17:59 0.4 mg
DAILY BALWINDER Administration
Methylprednisolone Sodium 258 mls @ 258 mls/hr 08/17/23 10:00 08/19/23 11:15
Succinate 1,000 mg/ Sodium IV 08/21/23 10:59 258 mls
Chloride Q24H BALWINDER Administration
Immune Globulin 30 grams in 300 mls @ 0 mls/hr 08/17/23 11:00 08/19/23 13:39
Gammagard IV 08/21/23 11:01 300 mls
PER PROTOCOL BALWINDER Administration
Protocol
As Directed
Morphine Sulfate 2 mg 08/13/23 23:32
Morphine 2 Mg/Ml Syringe IV 08/27/23 23:31
Q4HPRN PRN
Severe Pain
Pantoprazole Sodium 40 mg 08/14/23 08:00 08/20/23 08:32
Pantoprazole 40 Mg Delayed Release Tablet PO 09/11/23 07:59 40 mg
DAILY BALWINDER Administration
Polyethylene Glycol 17 grams 08/14/23 08:00 08/20/23 08:34
Polyethylene Glycol Powder 17 Grams Packet PO 09/11/23 07:59 Not Given
DAILY BALWINDER
Prochlorperazine Edisylate 5 mg 08/13/23 23:32
Prochlorperazine 10 Mg/2 Ml Vial IV 09/10/23 23:31
Q6HPRN PRN
Nausea
Sennosides 17.2 mg 08/14/23 01:00 08/19/23 20:48
Sennosides (Senokot) 8.6 Mg Tablet PO 09/11/23 00:59 Not Given
HS BALWINDER
Sodium Chloride 0 flush 08/13/23 23:00 08/20/23 08:32
Sodium Chloride 0.9% (Flush) Syringe IV 09/10/23 22:59 1 flush
PER PROTOCOL BALWINDER Administration
Sterile Water 10 ml 08/16/23 14:00 08/19/23 13:24
Sterile Water For Injection 10 Ml Vial IV 09/13/23 13:59 10 ml
Q24H BALWINDER Administration
Home Medications
�Medication �Instructions �Recorded
acetaminophen 325 mg tablet 650 mg PO Q4HPRN PRN MILD PAIN 08/13/23
(Tylenol)
amlodipine 5 mg tablet (Norvasc) 5 mg PO HS Blood Pressure 08/13/23
aspirin 81 mg tablet,delayed 81 mg PO DAILY Blood Clot 08/13/23
release Prevention/Tx
bisacodyl 10 mg rectal suppository 10 mg KS DAILYPRN PRN CONSTIPATION 08/13/23
(Dulcolax (bisacodyl))
calcium carbonate (Tums) 200 mg PO Q8HPRN PRN GERD 08/13/23
escitalopram oxalate 10 mg tablet 10 mg PO HS Depression 08/13/23
(Lexapro)
magnesium hydroxide 400 mg/5 mL 400 mg PO DAILYPRN PRN CONSTIPATION 08/13/23
oral suspension (Milk of Magnesia)
oxycodone 5 mg tablet 5 mg PO Q4HPRN PRN SEVERE PAINS 08/13/23
pantoprazole 40 mg tablet,delayed 40 mg PO DAILY Gastrointestinal 08/13/23
release (Protonix) Issue
polyethylene glycol 3350 17 gram 17 g PO DAILYPRN PRN CONSTIPATION 08/13/23
oral powder packet (Miralax)
prednisone 10 mg tablet 20 mg PO DAILY Anti-Inflammatory 08/13/23
rosuvastatin 5 mg tablet 5 mg PO HS High Cholesterol 08/13/23
sodium phosphates 19 gram-7 118 ml KS DAILYPRN PRN CONSTIPATION 08/13/23
gram/118 mL enema (Fleet Enema)
[2023-08-20] MEDS: COLACE 100 MG PO ×2 (08:31→21:22)
[2023-08-20] MEDS: COREG 3.125 MG PO ×2 (08:31→21:22)
[2023-08-20] MEDS: ELIQUIS 10 MG PO ×2 (08:31→21:26)
[2023-08-20] MEDS: ASPIR LOW (ENTERIC COATED) 81 MG PO (08:31)
[2023-08-20] MEDS: PEPCID 20 MG PO (08:32)
[2023-08-20] MEDS: PROTONIX 40 MG PO (08:32)
[2023-08-20] MEDS: VITAMIN B-12 1000 MCG PO (08:32)
[2023-08-20] MEDS: FOLVITE 0.400000000000000022 MG PO (08:32)
[2023-08-20] MEDS: FLUSH (NSS) 1 FLUSH IV (08:32)
[2023-08-20] MEDS: MIRALAX PO (08:34)
[2023-08-20] MEDS: SOLU-MEDROL 258 MG IV (10:22)
--- NOTE | 2023-08-20 10:52 | PTOTSP ---
Video Swallow Examination
Patient presents with a moderate pharyngeal dysphagia characterized by tongue base and pharyngeal weakness, reduced sensory awareness and reduced airway protection. This resulted in pharyngeal stasis, aspiration of thin liquid and laryngeal
penetration of mildly thick liquid. Use of chin tuck significantly improved airway protection, and dry swallow improved pharyngeal clearance.
Recommend
1. Downgrade to IDDSI 6 (soft, bite-sized) and Thin liquid by single cup sip
2. CHIN TUCK with everything
3. DRY SWALLOWS with everything
4. Intermittent throat clearing.
5. Small bites and chew thoroughly
6. Meds one at a time with liquid as tolerated. May need to place whole in applesauce.
ST to follow and recommend ST at next level of care.
--- NOTE | 2023-08-20 11:45 | W.PN.HOSP.TC ---
Today's Communication/Plan
-
finish IVIG and pulse steroids tomorrow
changing to prednisone Wednesday
anticipate [facility] Wednesday
Assessment / Plan
Assessment / Plan
HPI: 77 yo M with PMH significant for ASCVD, hypertension and recent L hip fracture / repair who presented to ED complaining of LE weakness and inability to walk.
History obtained from patient and his at the bedside. Patient was hospitalized here in June for L hip fracture and underwent ORIF on 07/03/23. He had had swelling of the LLE for several months prior to that and had no pain, etc. He was
discharged to SNF following his surgery where he has been since that time. He was initially progressing well; however, about 2 nights [employer] he sat up in bed and felt a sudden, sharp pain in his lower back. This improved once he returned to a supine
position. However, the following day he noted significant weakness in the LEs. Patient was able to stand with assistance / stand at a walker; however, he was unable to take even a single step.The night prior admission, he noted some pain in the R
hip / greater trochanter area. He continued to have weakness in the legs and presented to the ED for further evaluation.
Patient denies to any significant low back pain, hip pain, radicular pain, etc. He has had no significant fall / trauma since his recent hospitalization.
Lumbar discogenic degenerative disease with possibility of Acute Herniation with Lumbar Central canal stenosis and Lateral Foraminal Stenosis and Bilateral LE Weakness---No bowel or bladder incontinence--apprec neurosurgery and neurology--Spinal
cord compression in cervical spine has been ruled out--leading theory is myasthenia gravis--getting pulse dose steroids day 4/5 and IVIG day 4/5-- ACh receptor Ab negative, and empiric Pyridostigmine stopped-- --EMG shows myositis--CPK level also
noted high at 1300, hence cannot r/o statin induced myopathy, will hold statin/Crestor-- follow CPK level--PT/OT--added speech--VSE noted with silent aspiration
Left Hip Fracture s/p ORIF 07/03/2023 - Stable--LLE edema--Still with significant edema in the LLE compared to the R--BL LE US this admission actually showed RIGHT DVT of the posterior tibial vein--Started empiric Eliquis 10 mg BID x7 days, then 5 mg
BID for 3 months--Dr. Liu Informed to repeat LE US in 4 weeks after discharge to evaluate DVT--PT/OT as noted above.
recent diagnosis of possible PMR (with presentation of inability to lift BL arms) and pt was started with prednisone [address] Goncalves from rehab--Mild leucocytosis likely due to steroid--ESR/CRP in the 's--Per , his BL Upper extremities
weakness has improved since initiation of prednisone about 1 week [employer]--However, does not feel current BL LE weakness is related to PMR given it started acutely after bad body positioning/maneuvers--Rec outpt Rheum eval
ASCVD- Stable---Continue current med regimen including ASA, etc.
Chronic Cholelithiasis / Choledocholithiasis--Seen on imaging as early as April 2023--Known to GI with plans for outpatient follow-up / eventual ERCP/EUS--Has / has had no symptoms of abdominal pain, N/V, etc--Follow for any changes.
Moderate Malnutrition in the context of social circumstances
CKD III- Stable--Renal function at baseline, with SCr at 0.7
Acute DEEP VENOUS THROMBOSIS in the RIGHT POSTERIOR TIBIAL VEIN--eliquis
DVT Prophylaxis: Eliquis
Code Status: Full
now in hospital here.....
Anticipated Discharge: > 48 hours
Subjective/Interval History
-
Date of Service: August 20, 2023
pt waiting for [facility]
Objective Data
-
Vital Signs:
max temp for 24 hours
08/19/23
16:56
Temp 97.9 F
Vital Signs
Temp Pulse Resp BP Pulse Ox
97.5 F 63 20 156/75 97
08/20/23 07:55 08/20/23 08:31 08/20/23 07:55 08/20/23 08:31 08/20/23 09:00
I&O
08/19/23 08/20/23 08/21/23
06:59 06:59 06:59
Intake Total 620 / 620 780 / 780
Output Total 1170 / 1170 1050 / 1050
Balance -550 / -550 -270 / -270
Review of Systems
-
All other systems: Reviewed and negative
Physical Exam
-
General: Well Developed, Well Nourished and No Apparent Distress
HEENT: Normocephalic and Atraumatic
Respiratory: Clear to Auscultation; Negative Wheezes or Rhonchi
Cardiac: Regular Rhythm and S1/S2; Negative Murmur
GI: Soft, Nontender, Nondistended and Normal Bowel Sounds
Musculoskeletal: No Clubbing and No Cyanosis; Negative No Edema (left leg edema)
Skin: Warm
Neuro: Awake
--- NOTE | 2023-08-20 11:47 | CM ---
Patient seen at bedside with physician. Patient to complete IVIG over the weekend. Per PM&R patient would be appropriate for Acute Rehab, CM left message for Admissions to confirm ability to accept, pending bed availability. Patient also in ED
per patient. CM will continue to follow for discharge planning needs.
Plan; Acute rehab pending bed availability.
[2023-08-20] MEDS: GAMMAGARD 300 IV (12:08)
--- NOTE | 2023-08-20 15:25 | PTCARENOTE ---
Completed entire IV IG at this time without any noted adverse affects.
[2023-08-20] MEDS: ROCEPHIN 1000 MG IV (15:27)
[2023-08-20] MEDS: STERILE WATER FOR INJECTION 10 ML IV (15:27)
[2023-08-20] MEDS: SENOKOT 17.1999999999999993 MG PO (21:26)
[2023-08-20] MEDS: LEXAPRO 10 MG PO (21:26)
[2023-08-21] VITALS (11 sets, daily range): BP systolic 114–147; BP diastolic 58–72; BMI 23.2
[2023-08-21] MEDS: MIRALAX 17 GRAMS PO (08:18)
[2023-08-21] MEDS: COREG 3.125 MG PO ×2 (08:18→20:08)
[2023-08-21] MEDS: PROTONIX 40 MG PO (08:19)
[2023-08-21] MEDS: ELIQUIS 5 MG PO ×2 (08:19→20:09)
[2023-08-21] MEDS: PEPCID 20 MG PO (08:19)
[2023-08-21] MEDS: ASPIR LOW (ENTERIC COATED) 81 MG PO (08:19)
[2023-08-21] MEDS: COLACE 100 MG PO ×2 (08:19→20:08)
[2023-08-21] MEDS: VITAMIN B-12 1000 MCG PO (08:19)
[2023-08-21] MEDS: FOLVITE 0.400000000000000022 MG PO (08:19)
--- NOTE | 2023-08-21 09:47 | W.PN.NEURO.1 ---
Today's Communication / Plan
-
-Continue 5 day course of IVIG and methylprednisone, today is day 5/5.
Will initiate prednisone 60 mg daily x 1 month then 50 mg daily and continue indefinitely until seen as outpatient after completion of IV steroids. Continue PPI while on steroids.
-Now that patient has received IVIG we should delay further antibody testing for 1-2 months as abnormal antibody testing now would be confounded by the presence of IVIG.
-For the future should send for: Anti-Nicole , Anti SRP, Anti Mi2, Anti MDA5, Anti NXP2, Anti TIF, Anti CARLYLE, SSA/SSBh, and FORENSICS TEAM DIRECTOR (May be helpful to to a myositis associated panel test).
Neuro Assessment/Plan
Assessment
This is a 77-year-old man who presented to hospital with leg weakness ambulatory difficulty and also had significant lower back pain that is resolved. Patient relates around 2 months of significant weakness in the legs and walking difficulty and
also has had a couple months of diplopia. No history of malignancy.
EMG supports a myopathy, elevated CK and proximal muscle weakness proximally clinically support a myopathy as well, unlikely that we are dealing with myasthenia gravis.
Video swallow evaluation on 08/20/23 demonstrates moderate pharyngeal dysphagia characterized by tongue base and pharyngeal weakness.
No characteristic rash of Dermatomyositis. Lack of distal muscle weakness makes inclusion body myositis unlikely.
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
He did have myasthenia and HMG CoA reductase antibodies drawn.
Plan
-Complete 5 day course of IVIG and methylprednisone, today is day 5/5.
Will initiate prednisone 60 mg daily x 1 month then 50 mg daily and continue indefinitely until seen as outpatient after completion of IV steroids. Continue PPI while on steroids.
-Now that patient has received IVIG we should delay further antibody testing for 1-2 months as abnormal antibody testing now would be confounded by the presence of IVIG.
-For the future should send for: Anti-Nicole , Anti SRP, Anti Mi2, Anti MDA5, Anti NXP2, Anti TIF, Anti CARLYLE, SSA/SSBh, and FORENSICS TEAM DIRECTOR (May be helpful to to a myositis associated panel test).
-Hold statin therapy and would avoid use of these medications in the future.
-Modified dysphagia diet per ST.
-Started cyanocobalamin due to low B12 level.
-Patient receiving folic acid.
-Rehabilitation evaluations and treatment.
Will continue to follow as outpatient.
Subjective/Objective
Subjective Data
Date of Service: August 21, 2023
Patient reports minimal improvement
Objective Data
Vital Signs
Temp Pulse Resp BP Pulse Ox
36.4 C 56 18 139/70 98
08/21/23 07:08 08/21/23 08:18 08/21/23 07:08 08/21/23 08:18 08/21/23 07:08
Lab Results
08/19/23 04:29
08/19/23 04:29
Sodium 135 mmol/L (135-145) 08/19/23 04:29
Potassium 4.7 mmol/L (3.5-5.1) 08/19/23 04:29
BUN 45 mg/dl (9-20) H 08/19/23 04:29
Glucose 127 mg/dl (70-99) H 08/19/23 04:29
Calcium 8.8 mg/dl (8.4-10.2) 08/19/23 04:29
Vitamin B12 249 pg/ml (239-931) 08/15/23 05:47
Patient Allergies
gluten Allergy (Verified 08/13/23 17:09)
Unknown
Review of Systems
-
History Source: Patient
All other systems: Reviewed and negative
Abdomen/GI: Constipated
Genitourinary: Negative Incontinence
Physical Exam
-
General: No Apparent Distress and Appears Stated Age
Eyes: Round OU, Davey Conjunctivae and No Ptosis
HEENT: Anicteric and Moist Mucous Membranes
Neck: Full Range of Motion
Respiratory: No Dyspnea
Cardiac: No JVD
GI: Non-distended
Skin: Unremarkable
Extremities: No Clubbing, No Cyanosis and Edema +2 (in left leg)
Psych: Intact Judgement/Insight
Extended Neurological Exam
Mood & Affect: Mood Unremarkable and Affect Unremarkable
Attention Span & Concentration: Awake, Alert, Interactive and No Difficulty with 2 Step Request
Memory: Unremarkable
Tremor: Hand Tremor Absent and Head Tremor Absent
Speech: Quality Unremarkable and Quantity Unremarkable
Cranial Nerve II: Left Eye: Pupillary Size Unremarkable and Visual Tomlin Grossly Intact
Cranial Nerve II: Right Eye: Pupillary Size Unremarkable and Visual Tomlin Grossly Intact
Cranial Nerves III, IV, : Extraocular Movement: Grossly Intact
Cranial Nerve VII: Facial Symmetry: Normal Facial Symmetry
Cranial Nerve VIII: Hearing: Unremarkable Hearing to Normal Conversational Volume
Cranial Nerve XI: Shoulder Shrug: Reduced on Right and Reduced on Left
Muscle Strength, Overall: Other (B/L shoulder extension 4/5. On the right dorsi/plantarflexion 5/5, on the left 4- out of 5, neck flex 5/5, neck extension 4 out of 5. Leg elevation off of bed 4- out of 5)
Muscle Bulk & Tone: Bulk Unremarkable and Tone Unremarkable
Touch Sensation: Unremarkable
Coordination: Reaches for Objects without Difficulty
Gait & Station: Negative Up from Seated Without Problem
Data Reviewed
-
Labs: Report Reviewed
Reviewed with: Physician and Patient
Old Records: Summarized
Past History
Past History
ED Past Medical History: CVA (2018), GERD, HTN, Hypercholesterolemia and Other (Vitamin B12, vitamin D, adenomatous polyp, cholelithiasis); Negative Renal failure (CKD 3)
ED Past Surgical History: Orthopedic (left hip ORIF 06/2023) and Other (Hernia, cataract surgery, bilateral cataract surgery, left leg stent)
Social History
Tobacco: Non-smoker
Alcohol: None
Drug: None
Personal:
Living: with family
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
Family History
Family History: Early CAD
Medications
-
Medications:
Generic Name Dose Route Start Last Admin
Trade Name Freq PRN Reason Stop Dose Admin
Acetaminophen 650 mg 08/13/23 23:32
Acetaminophen 325 Mg Tablet PO 09/10/23 23:31
Q4HPRN PRN
Mild Pain / Temp > 101
Apixaban 5 mg 08/21/23 08:00 08/21/23 08:19
Apixaban (Eliquis) 5 Mg Tablet PO 09/18/23 07:59 5 mg
BID BALWINDER Administration
Aspirin 81 mg 08/14/23 08:00 08/21/23 08:19
Aspirin 81 Mg (Enteric Coated) Tablet PO 09/11/23 07:59 81 mg
DAILY BALWINDER Administration
Carvedilol 3.125 mg 08/14/23 20:00 08/21/23 08:18
Carvedilol 3.125 Mg Tablet PO 09/11/23 19:59 3.125 mg
BID BALWINDER Administration
Ceftriaxone Sodium 1,000 mg 08/16/23 14:00 08/20/23 15:27
Ceftriaxone 1000 Mg / 10 Ml Vial IV 1,000 mg
Q24H BALWINDER Administration
Cyanocobalamin 1,000 mcg 08/15/23 18:00 08/21/23 08:19
Cyanocobalamin 1,000 Mcg Tablet PO 09/12/23 17:59 1,000 mcg
DAILY BALWINDER Administration
Docusate Sodium 100 mg 08/14/23 08:00 08/21/23 08:19
Docusate Sodium 100 Mg Capsule PO 09/11/23 07:59 100 mg
BID BALWINDER Administration
Escitalopram Oxalate 10 mg 08/14/23 01:00 08/20/23 21:26
Escitalopram 10 Mg Tablet PO 09/11/23 00:59 10 mg
HS BALWINDER Administration
Famotidine 20 mg 08/17/23 11:00 08/21/23 08:19
Famotidine 20 Mg Tablet PO 09/14/23 10:59 20 mg
DAILY BALWINDER Administration
Folic Acid 0.4 mg 08/15/23 18:00 08/21/23 08:19
Folic Acid 0.4 Mg Tablet PO 09/12/23 17:59 0.4 mg
DAILY BALWINDER Administration
Methylprednisolone Sodium 258 mls @ 258 mls/hr 08/17/23 10:00 08/20/23 10:22
Succinate 1,000 mg/ Sodium IV 08/21/23 10:59 258 mls
Chloride Q24H BALWINDER Administration
Immune Globulin 30 grams in 300 mls @ 0 mls/hr 08/17/23 11:00 08/20/23 12:08
Gammagard IV 08/21/23 11:01 300 mls
PER PROTOCOL BALWINDER Administration
Protocol
As Directed
Morphine Sulfate 2 mg 08/13/23 23:32
Morphine 2 Mg/Ml Syringe IV 08/27/23 23:31
Q4HPRN PRN
Severe Pain
Pantoprazole Sodium 40 mg 08/14/23 08:00 08/21/23 08:19
Pantoprazole 40 Mg Delayed Release Tablet PO 09/11/23 07:59 40 mg
DAILY BALWINDER Administration
Polyethylene Glycol 17 grams 08/14/23 08:00 08/21/23 08:18
Polyethylene Glycol Powder 17 Grams Packet PO 09/11/23 07:59 17 grams
DAILY BALWINDER Administration
Prochlorperazine Edisylate 5 mg 08/13/23 23:32
Prochlorperazine 10 Mg/2 Ml Vial IV 09/10/23 23:31
Q6HPRN PRN
Nausea
Sennosides 17.2 mg 08/14/23 01:00 08/20/23 21:26
Sennosides (Senokot) 8.6 Mg Tablet PO 09/11/23 00:59 17.2 mg
HS BALWINDER Administration
Sodium Chloride 0 flush 08/13/23 23:00 08/20/23 08:32
Sodium Chloride 0.9% (Flush) Syringe IV 09/10/23 22:59 1 flush
PER PROTOCOL BALWINDER Administration
Sterile Water 10 ml 08/16/23 14:00 08/20/23 15:27
Sterile Water For Injection 10 Ml Vial IV 09/13/23 13:59 10 ml
Q24H BALWINDER Administration
[2023-08-21] MEDS: SOLU-MEDROL 258 MG IV (09:52)
[2023-08-21] MEDS: GAMMAGARD 300 IV (11:51)
--- NOTE | 2023-08-21 13:19 | W.PN.HOSP.TC ---
Today's Communication/Plan
-
hopeful Wednesday
Assessment / Plan
Assessment / Plan
pt is a 77 year old male
Lumbar discogenic degenerative disease with possibility of Acute Herniation with Lumbar Central canal stenosis and Lateral Foraminal Stenosis and Bilateral LE Weakness---No bowel or bladder incontinence--apprec neurosurgery and neurology--Spinal
cord compression in cervical spine has been ruled out--leading theory is myasthenia gravis--getting pulse dose steroids day 5/5 and IVIG day 55-- ACh receptor Ab negative, and empiric Pyridostigmine stopped-- --EMG shows myositis--CPK level also
noted high at 1300, hence cannot r/o statin induced myopathy, will hold statin/Crestor-- follow CPK level--PT/OT--added speech--VSE noted with silent aspiration
Left Hip Fracture s/p ORIF 07/03/2023 - Stable--LLE edema--Still with significant edema in the LLE compared to the R--BL LE US this admission actually showed RIGHT DVT of the posterior tibial vein--Started empiric Eliquis 10 mg BID x7 days, then 5 mg
BID for 3 months--Dr. Liu Informed to repeat LE US in 4 weeks after discharge to evaluate DVT--PT/OT as noted above.
recent diagnosis of possible PMR (with presentation of inability to lift BL arms) and pt was started with prednisone [address] Goncalves from rehab--Mild leucocytosis likely due to steroid--ESR/CRP in the 20's--Per , his BL Upper extremities
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
08/21/23
ASCVD- Stable---Continue current med regimen including ASA, etc.
Chronic Cholelithiasis / Choledocholithiasis--Seen on imaging as early as April 2023--Known to GI with plans for outpatient follow-up / eventual ERCP/EUS--Has / has had no symptoms of abdominal pain, N/V, etc--Follow for any changes.
Moderate Malnutrition in the context of social circumstances
CKD III- Stable--Renal function at baseline, with SCr at 0.7
Acute DEEP VENOUS THROMBOSIS in the RIGHT POSTERIOR TIBIAL VEIN--eliquis
DVT Prophylaxis: Eliquis
Code Status: Full
now in hospital here.....
Anticipated Discharge: 24 - 48 hours
Subjective/Interval History
-
Date of Service: August 21, 2023
pt without c/o
Objective Data
-
Vital Signs:
max temp for 24 hours
08/20/23
15:26
Temp 98.3 F
Vital Signs
Temp Pulse Resp BP Pulse Ox
97.6 F 64 18 132/72 97
08/21/23 07:08 08/21/23 12:46 08/21/23 12:46 08/21/23 12:46 08/21/23 12:46
I&O
08/20/23 08/21/23 08/22/23
06:59 06:59 06:59
Intake Total 780 / 780 680 / 680
Output Total 1050 / 1050 1460 / 1460
Balance -270 / -270 -780 / -780
Review of Systems
-
All other systems: Reviewed and negative
Physical Exam
-
General: Well Developed and Well Nourished
HEENT: Normocephalic and Atraumatic
Respiratory: Clear to Auscultation; Negative Wheezes or Rhonchi
Cardiac: Regular Rhythm and S1/S2; Negative Murmur
GI: Soft, Nontender, Nondistended and Normal Bowel Sounds
Musculoskeletal: No Clubbing and No Cyanosis; Negative No Edema (left leg 3+ LE edema)
Skin: Warm
Neuro: Awake
[2023-08-21] MEDS: ROCEPHIN 1000 MG IV (14:36)
[2023-08-21] MEDS: STERILE WATER FOR INJECTION 10 ML IV (14:37)
--- NOTE | 2023-08-21 15:14 | PTCARENOTE ---
IVIG administered as ordered without incident. Vital signs stable.
[2023-08-21] MEDS: LEXAPRO 10 MG PO (21:07)
[2023-08-21] MEDS: SENOKOT 17.1999999999999993 MG PO (21:07)
[2023-08-22 06:00] VITALS: BMI 23.4
[2023-08-22 07:47] VITALS: BP 153/76
[2023-08-22 08:04] LABS: Hematocrit 34.8 % (39.0-52.0); Hemoglobin 11.8 g/dL (13.0-18.0); Mean Corp Hgb Conc. 33.9 g/dL (33.0-37.0); Mean Corpuscular Volume 97.2 fL (80.0-94.0); Mean Platelet Volume 10.3 fL (7.4-10.4); Platelet Count 158 10^3/uL (130-400); Red Blood Cell Count 3.58 10^6/uL (4.70-6.10); Red Cell Dist. Width 13.4 % (11.5-14.5); White Blood Cell Count 10.4 10^3/uL (4.8-10.8)
[2023-08-22 08:23] LABS: ALT (SGPT) 109 U/L (0-50); AST (SGOT) 83 U/L (17-59); Albumin 2.4 g/dl (3.5-5.0); Alkaline Phosphatase 92 U/L (38-126); Blood Urea Nitrogen 47 mg/dl (9-20); Calcium 7.9 mg/dl (8.4-10.2); Carbon Dioxide 31 mmol/L (22-30); Chloride 100 mmol/L (98-107); Creatine Phosphokinase 497 U/L (55-170); Estimated Creatinine Clearance 97 ml/min; Glucose 105 mg/dl (70-99); Magnesium 2.1 mg/dl (1.6-2.3); Potassium 4.3 mmol/L (3.5-5.1); Sodium 135 mmol/L (135-145); Total Protein 6.6 g/dl (6.3-8.2); eGFR > 60.00
[2023-08-22] MEDS: ASPIR LOW (ENTERIC COATED) 81 MG PO (09:09)
[2023-08-22] MEDS: COLACE 100 MG PO ×2 (09:10→19:59)
[2023-08-22] MEDS: PROTONIX 40 MG PO (09:10)
[2023-08-22] MEDS: FOLVITE 0.400000000000000022 MG PO (09:10)
[2023-08-22] MEDS: DELTASONE 60 MG PO (09:10)
[2023-08-22] MEDS: ELIQUIS 5 MG PO ×2 (09:10→19:59)
[2023-08-22] MEDS: PEPCID 20 MG PO (09:10)
[2023-08-22] MEDS: MIRALAX 17 GRAMS PO (09:10)
[2023-08-22] MEDS: FLUSH (NSS) 1 FLUSH IV (09:11)
[2023-08-22] MEDS: VITAMIN B-12 1000 MCG PO (09:11)
[2023-08-22] MEDS: COREG 3.125 MG PO ×2 (09:12→19:59)
--- NOTE | 2023-08-22 10:27 | CM ---
Patient seen bedside, patient inquiring about potential discharge to [facility] on Wednesday. CM sent update through [facility] to [facility]. CM will continue to follow for discharge planning needs.
Plan; [facility], awaiting to hear regarding bed availability.
--- NOTE | 2023-08-22 12:33 | W.PN.HOSP.TC ---
Today's Communication/Plan
-
anticipate d/c to Wednesday
Assessment / Plan
Assessment / Plan
pt is a 77 year old male
Lumbar discogenic degenerative disease with possibility of Acute Herniation with Lumbar Central canal stenosis and Lateral Foraminal Stenosis and Bilateral LE Weakness---No bowel or bladder incontinence--apprec neurosurgery and neurology--Spinal
cord compression in cervical spine has been ruled out--leading theory is myasthenia gravis--finished pulse dose steroids day 07/17 and IVIG day 5-- ACh receptor Ab negative, and empiric Pyridostigmine stopped-- --EMG shows myositis--CPK level also
noted high at 1300 down to 497, hence cannot r/o statin induced myopathy, will hold statin/Crestor---PT/OT--added speech--VSE noted with silent aspiration
Left Hip Fracture s/p ORIF 07/03/2023 - Stable--LLE edema--Still with significant edema in the LLE compared to the R--BL LE US this admission actually showed RIGHT DVT of the posterior tibial vein--Started empiric Eliquis 10 mg BID x7 days, then 5 mg
BID for 3 months--Dr. Liu Informed to repeat LE US in 4 weeks after discharge to evaluate DVT--PT/OT as noted above.
recent diagnosis of possible PMR (with presentation of inability to lift BL arms) and pt was started with prednisone [address] Goncalves from rehab--Mild leucocytosis likely due to steroid--ESR/CRP in the 20's--Per , his BL Upper extremities
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
08/21/23
ASCVD- Stable---Continue current med regimen including ASA, etc.
Chronic Cholelithiasis / Choledocholithiasis--Seen on imaging as early as April 2023--Known to GI with plans for outpatient follow-up / eventual ERCP/EUS--Has / has had no symptoms of abdominal pain, N/V, etc--Follow for any changes.
Moderate Malnutrition in the context of social circumstances
CKD III- Stable--Renal function at baseline, with SCr at 0.7
Acute DEEP VENOUS THROMBOSIS in the RIGHT POSTERIOR TIBIAL VEIN--eliquis
DVT Prophylaxis: Eliquis
Code Status: Full
now in hospital here as patient.....
Anticipated Discharge: Within 24 hours
Subjective/Interval History
-
Date of Service: August 22, 2023
pt doing good today--waiting for [facility]
Objective Data
-
Labs:
Laboratory Results
08/22/23
06:15
WBC 10.4
Hgb 11.8 L
Hct 34.8 L
Plt Count 158 D
Sodium 135
Potassium 4.3
Chloride 100
Carbon Dioxide 31 H
BUN 47 H
Creatinine 0.7
Glucose 105 H
Calcium 7.9 L
Total Bilirubin 1.0
AST 83 H
ALT 109 H
Alkaline Phosphatase 92
Vital Signs:
max temp for 24 hours
08/21/23
13:30
Temp 98.2 F
Vital Signs
Temp Pulse Resp BP Pulse Ox
97.4 F 61 18 153/76 97
08/22/23 07:47 08/22/23 09:12 08/22/23 07:47 08/22/23 09:12 08/22/23 09:00
I&O
08/21/23 08/22/23 08/23/23
06:59 06:59 06:59
Intake Total 680 / 680 1590 / 1590
Output Total 1460 / 1460 1965 / 1965
Balance -780 / -780 -375 / -375
Review of Systems
-
All other systems: Reviewed and negative
Physical Exam
-
General: Well Developed, Well Nourished and No Apparent Distress
HEENT: Normocephalic and Atraumatic
Respiratory: Clear to Auscultation; Negative Wheezes or Rhonchi
Cardiac: Regular Rhythm and S1/S2; Negative Murmur
GI: Soft, Nontender, Nondistended and Normal Bowel Sounds
Musculoskeletal: No Clubbing, No Cyanosis and Edema, Left Lower Extrem; Negative No Edema
Neuro: Awake and Alert
Psych: Calm
[2023-08-22] MEDS: ROCEPHIN 1000 MG IV (14:29)
[2023-08-22] MEDS: STERILE WATER FOR INJECTION 10 ML IV (14:30)
[2023-08-22 15:48] VITALS: BP 138/67
[2023-08-22] MEDS: SENOKOT 17.1999999999999993 MG PO (21:23)
[2023-08-22] MEDS: LEXAPRO 10 MG PO (21:23)
[2023-08-22 23:06] VITALS: BP 139/71
[2023-08-23 06:00] VITALS: BMI 23.4
[2023-08-23 07:00] VITALS: BP 157/74
[2023-08-23] MEDS: ELIQUIS 5 MG PO (08:58)
[2023-08-23] MEDS: FOLVITE 0.400000000000000022 MG PO (08:58)
[2023-08-23] MEDS: DELTASONE 60 MG PO (08:58)
[2023-08-23] MEDS: ASPIR LOW (ENTERIC COATED) 81 MG PO (08:59)
[2023-08-23] MEDS: PROTONIX 40 MG PO (08:59)
[2023-08-23] MEDS: COLACE 100 MG PO (08:59)
[2023-08-23] MEDS: PEPCID 20 MG PO (08:59)
[2023-08-23] MEDS: COREG 3.125 MG PO (08:59)
[2023-08-23] MEDS: MIRALAX PO ×2 (08:59→09:00)
[2023-08-23] MEDS: VITAMIN B-12 1000 MCG PO (08:59)
--- NOTE | 2023-08-23 09:25 | W.PN.HOSP.TC ---
Addendum entered and electronically signed by Pamela Liu MD 08/23/23 15:33:
total DC time 45 min
Original Note:
Today's Communication/Plan
-
see A/P
Assessment / Plan
Assessment / Plan
A/P:
# Lumbar discogenic degenerative disease with possibility of Acute Herniation with Lumbar Central canal stenosis and Lateral Foraminal Stenosis and Bilateral LE Weakness
No bowel or bladder incontinence
apprec neurosurgery and neurology
Spinal cord compression in cervical spine has been ruled out
?myasthenia gravis, finished pulse dose steroids day 55 and IVIG day 55, ACh receptor Ab negative, empiric Pyridostigmine stopped
EMG shows myositis, CPK level also noted high at 1300 down to 497, hence cannot r/o statin induced myopathy,
hold statin/Crestor
PT/OT recc [facility]
SPL recc IDDSI 6, VSE noted with silent aspiration
# Left Hip Fracture s/p ORIF 07/03/2023 - Stable
# LLE edema
Still with significant edema in the LLE compared to the R
BL LE US this admission actually showed RIGHT DVT of the posterior tibial vein
Started empiric Eliquis 10 mg BID x7 days, then 5 mg BID for [address] Liu Informed to repeat LE US in 4 weeks after discharge to evaluate DVT
PT/OT as noted above.
# recent diagnosis of possible PMR (with presentation of inability to lift BL arms) and pt was started with prednisone [address] Goncalves from rehab
# Mild leucocytosis likely due to steroid
ESR/CRP in the 20's
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
However, does not feel current BL LE weakness is related to PMR given it started acutely after bad body positioning/maneuverRec outpt Rheum eval
see neuro note from 08/21/23, recc prednisone taper from 60 mg daily x 1 month then 50 mg daily and continue indefinitely until seen as outpatient. Continue PPI while on steroids.
# ASCVD- Stable
Continue current med regimen including ASA, etc.
# Chronic Cholelithiasis / Choledocholithiasis
Seen on imaging as early as April 2023
Known to GI with plans for outpatient follow-up / eventual ERCP/EUS
No symptoms of abdominal pain, N/V, etc
Follow for any changes.
# Moderate Malnutrition in the context of social circumstances
# CKD III- Stable
Renal function at baseline, with SCr at 0.7
# Acute DEEP VENOUS THROMBOSIS in the RIGHT POSTERIOR TIBIAL VEIN
Eliquis
# Asymptomatic bacteruria
Pt was treated as presumed UTI
Urine Cx with klebsiella, sensitivity reviewed
Cont ceftriaxone total 14 days
DVT Prophylaxis: Eliquis
Code Status: Full
now in hospital here as patient.
updated on the phone
Anticipated Discharge: 24 - 48 hours
Subjective/Interval History
-
Date of Service: August 23, 2023
Objective Data
-
Vital Signs:
Vital Signs
Temp Pulse Resp BP Pulse Ox
36.4 C 60 14 157/74 98
08/23/23 07:00 08/23/23 08:59 08/23/23 07:00 08/23/23 08:59 08/23/23 07:00
I&O
08/22/23 08/23/23 08/24/23
06:59 06:59 06:59
Intake Total 1590 / 1590 1040 / 1040
Output Total 1964 / 1964 1025 / 1025 100 / 100
Balance -375 / -375 15 / 15 -100 / -100
Review of Systems
-
All other systems: Reviewed and negative
Physical Exam
-
General: Well Developed, Well Nourished, No Apparent Distress, Comfortable and Conversant
HEENT: Normocephalic and Atraumatic
Respiratory: Clear to Auscultation and Non Labored Respirations; Negative Accessory Resp Muscle Use
Cardiac: Regular Rhythm and S1/S2; Negative Murmur
GI: Soft, Nontender, Nondistended and Normal Bowel Sounds
Musculoskeletal: No Clubbing, No Cyanosis and Edema, Left Lower Extrem; Negative No Edema
Neuro: Awake and Alert
Psych: Calm and Intact Judgement/Insight
Data Reviewed
-
CT Scan: Report Reviewed by me
MRI: Report Reviewed by me and Discussed with Family
Labs: Labs Reviewed by me
--- NOTE | 2023-08-23 11:21 | CM ---
MD entered order for discharge.
Spoke with Elio Fitzgerald at [facility] .
She accepted pt with a bed today.
Spoke with with Goldie who is also a patient here. She is in agreement with dc to [facility] .
Pt agrees with dc to [facility] today also.
Pt will be taken to [facility] via after lunch.
[facility]
report [phone]
fax [phone]
PLAN [facility] at
`
[2023-08-23 13:19] VITALS: BP 146/73; PULSE 65; O2SAT 98
[2023-08-23 13:21] VITALS: BP 146/73; PULSE 65; O2SAT 98
[2023-08-23] MEDS: ROCEPHIN 1000 MG IV (14:28)
[2023-08-23] MEDS: STERILE WATER FOR INJECTION 10 ML IV (14:28)
[2023-08-23 14:38] VITALS: BP 130/66
--- NOTE | 2023-08-23 15:19 | W.DCSUMMARY ---
Discharge Summary
Discharge Data
Date of Admission: 08/13/23
Date of Discharge: 08/23/23
-
Pending Results: No
Hospital Course
Principal Diagnosis:
Bilateral lower extremity weakness, differential includes myasthenia gravis versus statin induced myopathy
Acute right posterior tibial vein thrombosis
Recent diagnosis of possible polymyalgia rheumatica and was started with prednisone 20 mg
Mild dysphagia, continue with soft and bite-size diet
Chronic Diagnoses:�
Left Hip Fracture status post ORIF 07/03/2023 with left leg edema
Chronic Cholelithiasis / Choledocholithiasis
Moderate Malnutrition in the context of social circumstances
Chronic kidney disease stage III, stable
Consultations:�
Neurosurgery
Neurology
Procedures:�
EMG
Clinical course:�
This is a 77-year-old male, with past medical history as stated above, who presented with bilateral lower extremity weakness without any pain in the back or legs.
Problem 1:
Bilateral lower extremity weakness, differential includes myasthenia gravis versus statin induced myopathy.
There is no associated bowel or bladder incontinence.
Spinal cord compression has been ruled out with MRI.
Patient was initially evaluated by neurology and myasthenia gravis was thought to be on the differential, hence he was started with pulsatile steroid and IVIG x 5 days.
His acetylcholine receptor was negative, hence empiric pyridostigmine was stopped.
His CPK level was noted to be high at 1300 which trended down to 400, and his EMG showed myositis, hence cannot rule out statin induced myopathy.
He has been informed to hold Crestor going forward.
He can continue with prednisone 60 mg for a total of 1 month per neurology, and then continue prednisone 50 mg going forward until seen by outpatient rheumatology.
Patient was discharged to [facility] per PT OT evaluation
Of note, he was seen by speech therapist and was recommended to continue with soft and bite-size diet going forward. His video swallow eval noted silent aspiration.
Problem 2:
Recent diagnosis of possible PMR (with presentation of inability to lift bilateral arms) and patient was started with prednisone [address] Goncalves from rehab outpatient.
His ESR and CRP were in the 20's this admission.
Per his , his bilateral upper extremities weakness has improved since initiation of prednisone about 1 week prior to admission.
He can continue prednisone taper per neurology: 60 mg daily x 1 month then 50 mg daily and continue indefinitely until seen as outpatient.
Continue PPI while on steroids.
Problem 3:
Acute right posterior tibial vein thrombosis.
He can continue with Eliquis for a total of 3 months.
He has been informed to check repeat lower extremity ultrasound to evaluate the presence of clot in 4 weeks with his PCP.
Problem 4:
Asymptomatic bacteruria, treated as presumed UTI.
His urine culture grew klebsiella, sensitivity reviewed.
He received IV ceftriaxone for 7 days while in the hospital, and was discharged with oral cefdinir for 7 more days (total 14 days).
As for the rest of his medical problems, they were stable during his hospital stay.
Discharge Plan
-
Patient Disposition: Acute Rehab Facility
Discharge Diagnosis/Procedures: bilateral leg weakness possibly due to myasthenia gravis versus statin induced myopathy; Lumbar discogenic degenerative disease with possibility of acute herniation with lumbar central canal stenosis and Lateral
Foraminal Stenosis and Bilateral leg weakness; Right lower leg deep vein thrombosis (posterior tibial vein); Asymptomatic bacteriuria/urinary tract infection; recent diagnosis of possible polymyalgia rheumatica
Condition: Fair
Diet: As tolerated and Other diet
Additional Diets: soft and bite size
Activity: As tolerated
Additional Activity: US leg in 4 weeks to evaluate the DVT in right leg with your PCP
Driving Restrictions: No driving
Others Tests: repeat lower extremity ultrasound to evaluate the right leg blood clot
Referrals:
Geneva James MD [Family Provider] - in less than 1 week
Additional Discharge Medication Instructions: Continue Eliquis for at least 3 months for your DVT
Stop Crestor.
Take prednisone 60 mg for 3 more weeks, then 50 mg until further directed by the switchboard receptionist
Stop Norvasc (it can cause leg swelling) and take Coreg for blood pressure control
Continue antibiotic Cefdinir for 7 more days for possible UTI
Prescriptions:
New
carvedilol 3.125 mg Tablet
3.125 mg PO BID Qty: 60 0RF
prednisone 20 mg Tablet
60 mg PO DAILY Qty: 30 0RF
Rx Instructions:
for 3 more weeks then 50 mg daily after that
Eliquis 5 mg Tablet
5 mg PO BID Qty: 180 0RF
cyanocobalamin (vitamin B-12) 1,000 mcg Tablet
1,000 mcg PO DAILY Qty: 30 0RF
cefdinir 300 mg capsule
300 mg PO BID 7 Days Qty: 14 0RF
Continued
acetaminophen [Tylenol] 325 mg Tablet
650 mg PO Q4HPRN PRN (Reason: MILD PAIN)
polyethylene glycol 3350 [Miralax] 17 gram Powder In Packet
17 g PO DAILYPRN PRN (Reason: CONSTIPATION)
aspirin 81 mg Tablet,Delayed Release (Dr/Ec)
81 mg PO DAILY
magnesium hydroxide [Milk of Magnesia] 400 mg/5 mL Suspension
400 mg PO DAILYPRN PRN (Reason: CONSTIPATION)
bisacodyl [Dulcolax (bisacodyl)] 10 mg Suppository
10 mg VT DAILYPRN PRN (Reason: CONSTIPATION)
pantoprazole [Protonix] 40 mg Tablet,Delayed Release (Dr/Ec)
40 mg PO DAILY
Fleet Enema 19-7 gram/118 mL Enema
118 ml VT DAILYPRN PRN (Reason: CONSTIPATION)
escitalopram oxalate [Lexapro] 10 mg Tablet
10 mg PO HS
Discontinued
prednisone 10 mg Tablet
20 mg PO DAILY
amlodipine [Norvasc] 5 mg Tablet
5 mg PO HS
calcium carbonate [Tums] 200 mg calcium (500 mg) Tablet,Chewable
200 mg PO Q8HPRN PRN (Reason: GERD)
oxycodone 5 mg Tablet
5 mg PO Q4HPRN PRN (Reason: SEVERE PAINS)
rosuvastatin [Crestor] 5 mg Tablet
5 mg PO HS
Discharge Orders:
Discharge Patient (As Directed); Ordered 08/23/23
Ordered By: Pamela Liu
Discharge Date and Time
Print Language: TURKMEN
--- NOTE | 2023-08-23 16:09 | PTCARENOTE ---
Received patient this am AAOx3. OOB to bedside commode with assistance of 2 to 3. Tolerated diet well. Pt offered no complaints. Report called to RN at [facility]. Pt transported to [facility] by transport.
== END 2023-08-23 16:04 | DRG 546 ==
LOC: 4 EAST ACU 22:26
PROVIDERS: Internal Medicine; ADMITTING PHYSICIAN Hospitalist; ATTENDING PHYSICIAN Internal Medicine; CONSULT PHYSICIAN Physical Medicine & Rehabilitation; CONSULT PHYSICIAN Psychiatry & Neurology Neurology; EMERGENCY PHYSICIAN Emergency Medicine; FAMILY PHYSICIAN Student in an Organized Health Care Education/Training Program; OTHER PHYSICIAN Neurological Surgery
PROC: 30233S1 Transfusion of Nonautologous Globulin into Peripheral Vein, Percutaneous Approach (ICD-10-PCS; 2023-08-17)
DX: G72.49 Other inflammatory and immune myopathies, not elsewhere classified (principal); E44.0 Moderate protein-calorie malnutrition; I82.441 Acute embolism and thrombosis of right tibial vein; N39.0 Urinary tract infection, site not specified; M47.816 Spondylosis without myelopathy or radiculopathy, lumbar region; M51.36 Other intervertebral disc degeneration, lumbar region; I12.9 Hypertensive chronic kidney disease with stage 1 through stage 4 chronic kidney disease, or unspecified chronic kidney disease; N18.30 Chronic kidney disease, stage 3 unspecified; I65.22 Occlusion and stenosis of left carotid artery; M35.3 Polymyalgia rheumatica; D64.9 Anemia, unspecified; M50.21 Other cervical disc displacement, high cervical region; K80.70 Calculus of gallbladder and bile duct without cholecystitis without obstruction; K83.8 Other specified diseases of biliary tract; R13.13 Dysphagia, pharyngeal phase; B96.1 Klebsiella pneumoniae [K. pneumoniae] as the cause of diseases classified elsewhere; I25.10 Atherosclerotic heart disease of native coronary artery without angina pectoris; K59.00 Constipation, unspecified; K21.9 Gastro-esophageal reflux disease without esophagitis; E78.00 Pure hypercholesterolemia, unspecified; M54.50 Low back pain, unspecified; H53.2 Diplopia; Z68.22 Body mass index [BMI] 22.0-22.9, adult; R60.0 Localized edema; S72.002D Fracture of unspecified part of neck of left femur, subsequent encounter for closed fracture with routine healing; Z79.82 Long term (current) use of aspirin; Z79.52 Long term (current) use of systemic steroids; Z79.899 Other long term (current) drug therapy; Z86.73 Personal history of transient ischemic attack (TIA), and cerebral infarction without residual deficits
CPT/HCPCS: 72131; 72146; 72148; 74230; 80048; 80053; 81003; 81015; 82550; 82607; 82728; 82746; 83735; 84443; 85025; 85027; 85652; 86041; 86140; 87077; 87086; 87186; 92526; 92610; 92611; 93970; 95886; 95910; 97112; 97163; 97166; 97530; 97535; 99284; J1569

== ENCOUNTER 2023-09-12 13:53 | Inpatient (IN) | payer MEDICARE, OTHER, SELFPAY ==
[2023-09-12] VITALS (19 sets, daily range): BP systolic 61–142; BP diastolic 38–77; PULSE 75–83; BMI 24.6; BMI 23.6
--- NOTE | 2023-09-12 09:14 | ED.GENMED ---
History of Present Illness
General
Chief Complaint: Fainting/Passed Out
Source: patient and records
Time Seen by Provider: 09/12/23 09:07
History of Present Illness
History of Present Illness:
77-year-old male presenting to the emergency department from [facility] where he has been residing over the last few weeks following a long-term and somewhat complicated admission back on August 12 for evaluation after he was doing some occupational
therapy when he had what was thought to be a syncopal episode where staff reports patient became unresponsive although was still awake and breathing on his own for approximately 3 minutes. Patient reports that normally after his physical therapy he
starts to feel very fatigued and notes that he has been doing therapy more so in the afternoons but today it had to be done in the morning. He notes that he had only had a little bit to eat prior to his therapy. Currently he states he is feeling
the generalized weakness that he would normally feel following therapy and that he has no other new symptoms. It was noted on patient's discharge summary that he had bilateral lower extremity weakness which was undifferentiated and thought to be
possibly from either myasthenia gravis or statin induced myopathy, he had developed right posterior tibial vein thrombosis, recent diagnosis of suspected polymyalgia rheumatica. He also is dealing with chronic left leg edema secondary to left hip
fracture status post ORIF in June of this year, chronic malnutrition secondary to social circumstances and chronic knee disease. It was also noted that on September 09 patient had been doing quite well with his therapies and staff at [facility] had been
happy with patient's rehab thus far.
Past History
Past History
ED Past Medical History: CAD, CVA (2018), GERD, HTN, Hypercholesterolemia, Renal failure (CKD 3) and Other (Vitamin B12, vitamin D, adenomatous polyp, cholelithiasis)
ED Past Surgical History: Orthopedic (left hip ORIF 06/2023) and Other (Hernia, cataract surgery, bilateral cataract surgery, left leg stent)
Social History
Tobacco: Non-smoker
Alcohol: None
Drug: None
Personal:
Living: with family
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
Family History
Family History: Early CAD
Review of Systems
Review of Systems
All Other Systems: ROS reviewed and negative except as documented in HPI and ROS
Phy Exam
Physical Exam
Physical Exam:
GENERAL: Alert , in no apparent distress, very pleasant
EYE: Clear conjunctiva
NECK: Supple
ENT: o/p clr, mmm.
CARDIAC: Regular rate and rhythm .
LUNGS: Clear breath sounds bilaterally, no acute respiratory distress, no wheezes/rales/rhonchi
ABDOMEN: Soft, without focal tenderness, no r/g, no cvat
NEUROLOGICAL: Alert and oriented x 3
SKIN: Warm and dry, skin intact.
MUSCULOSKELETAL: Bilateral pitting edema to LE, well perfused.
PSYCH: Normal and appropriate interaction.
Scores
Heart Failure Risk
Heart Failure Risk Score: Not Applicable
Heart Score for Chest Pain Patients
STEMI patient?: Not applicable
Withdrawal Assessment of Alcohol
Withdrawal Assessment Completed?: Not applicable
Course
Orders/Labs/Results
Orders:
Orders
09/12/23 09:08
Electrocardiogram (*1) Urgent
Reason for Study: Vertigo / Dizzy
EKG- Treatment ONCE
09/12/23 09:13
CMP [Comprehensive Metabolic Panel] Urgent
Complete Blood Count/With Diff Urgent
09/12/23 09:21
Orthostatic VS- Treatment ONCE
09/12/23 09:36
0.9% Sodium Chloride 1000 ml [Nss] 1,000 ml IV BOLUS
09/12/23 09:50
COVID-19 Antigen Urgent
Source: Nasal Swab
09/12/23 12:15
0.9% Sodium Chloride 1000 ml [Nss] 1,000 ml IV BOLUS
09/12/23 13:10
Urinalysis Reflex To Culture Urgent
Date Specimen was Collected: 09/12/23
Time Specimen was Collected: 13:08
Urine Microscopic Reflex Cult Urgent
Urine Culture Urgent
SHERIF Source: U
Specimen Description:
Date Specimen was Collected: 09/12/23
Time Specimen was Collected: 13:08
09/12/23 13:21
CR Chest - 2 Views Urgent
Comment:
Reason For Exam: neutropenia
09/12/23 13:23
Vancomycin [Vancocin] 1,750 mg 0.9% Sodium Chloride 500 ml [Nss] 500 ml IV NOW
09/12/23 13:26
Admit/Transfer Patient As Directed
Co-Sign Provider:
Level of Care: Inpatient admission
Assign to:: Telemetry
Physician / Group: Ducle
Diagnosis: orthostatic hypotension
Reason for Telemetry: Arrhythmia
Date to Stop Telemetry: 09/15/23
Time to Stop Telemetry: 11:00
Reason for Hospitalization: orthostatic hypotension
Expected length of stay greater than two midnights?: Yes
ELOS- Estimated Length of Stay in days: 3
I certify the patient meets the requirements for IP care: Yes
09/12/23 13:28
Code Status As Directed
Resuscitation Status: Full Code
09/12/23 13:42
Blood Culture Q30M
SHERIF Source: Blood/Venous
Specimen Description:
Blood Culture Q30M
SHERIF Source: Blood/Venous
Specimen Description:
09/12/23 14:00
Cefepime HCl [Maxipime] 2,000 mg IV Q8H
Sterile Water [Sterile Water For Injection] 10 ml IV Q8H
09/15/23 11:00
DC Protocol for Telemetry ONCE
Abnormal Lab Results
09/12/23 09/12/23
09:13 13:10
WBC 1.3 L* 10^3/uL
(4.8-10.8)
RBC 3.32 L 10^6/uL
(4.70-6.10)
Hgb 11.4 L g/dL
(13.0-18.0)
Hct 32.7 L %
(39.0-52.0)
MCV 98.5 H fL
(80.0-94.0)
MCH 34.3 H pg
(27.0-31.0)
RDW 16.2 H %
(11.5-14.5)
Absolute Neuts (auto) 0.9 L* 10^3/uL
(1.4-6.5)
Absolute Lymphs (auto) 0.3 L 10^3/uL
(1.2-3.4)
Absolute Monos (auto) 0.0 L 10^3/uL
(0.1-0.6)
Immature Gran % 1.6 H %
(0-0.5)
Monocytes % 0.8 L %
(1.7-9.3)
Sodium 133 L mmol/L
(135-145)
BUN 30 H mg/dl
(9-20)
Calcium 8.3 L mg/dl
(8.4-10.2)
ALT 81 H U/L
(0-50)
Total Protein 5.2 L g/dl
(6.3-8.2)
Albumin 2.7 L g/dl
(3.5-5.0)
Ur Occult Blood Reflex 1+ A
(Negative)
Leukocyte Esterase Rfl 2+ A
(Negative)
Urine RBC 3-6 A /HPF
(0-2)
Urine WBC (Reflex) 30-40 A /HPF
(0-5)
Urine Bacteria (Reflex) Many A
(Negative)
09/12/23 09:13
09/12/23 09:13
Vital Signs
Initial and Last Documented VS:
Initial Vital Signs
Temp Pulse Resp BP
98.2 F 70 18 142/58
09/12/23 09:01 09/12/23 09:01 09/12/23 09:01 09/12/23 09:01
Last Documented Vital Signs
Temp Pulse Resp BP Pulse Ox
98.2 F 77 15 91/52 95
09/12/23 09:01 09/12/23 13:45 09/12/23 13:45 09/12/23 14:00 09/12/23 13:45
Spice Grinder consulted with Physician
Spice Grinder consulted with physician?: Yes
Name of Physician Consulted: Noh
MDM/Problems Addressed
Differential Diagnosis Includes:
vagal episode, orthostasis, cardiac dysrhythmia, electrolyte disturbance
MDM/Problems Addressed:
77-year-old male presenting to the emergency department for evaluation after suspected syncopal episode while performing his occupational therapy this morning. Notes that his OT had usually been in the afternoon but today had to be in the earlier
morning. Had not eaten or drank very much prior to the therapy starting. Notes that he is in his usual state of health at present time and notes that he will often feel quite fatigued after therapy in the afternoons as well. No fevers or
infectious symptoms. Exam is overall reassuring. Will check labs, EKG and reassess following with anticipation patient is disposition back to my.
Chronic conditions affecting care: CAD and Kidney disease
*Pulse Oximetry
Patient hypoxic: no
*EKG
Interpreted by ED Provider?: Yes
Heart Rate: 68
Rate: normal
Rhythm: sinus
[place]: normal axis
Ischemia: T-wave inversion (aVL)
*Production Supply Equipment Tender Interpretation
Rate: normal
Rhythm: sinus
*Critical Care Note
Total Time (30-74mins, 75-104mins- exclusive of procedures): Not Applicable
Data Reviewed
Review of Other/Old Records Reveals: Labs, Records and Discharge Summary
Source: patient and records
Comment
Comment:
While checking orthostatics, patients BP dropped to 83/42 and was symptomatic during. 1L NSS ordered. Suspect orthostasis main cause of original symptomatology and presentation
9:20 AM - Patient has new leukopenia. No thrombocytopenia. Very mild anemia which is at patients baseline. ALT mildly elevated at 81 however in comparison to previous this is a significant improvement. ? Viral etiology. Covid test ordered. Afebrile
here.
Patient Management
Discussion with other providers: Hospitalist
Escalation/DeEscalation of care consider admission/obs:
Despite IV fluids, patient still had positive orthostatic vital signs with his blood pressure dropping as low as 61/38. Due to this finding combined with his new leukopenia I feel patient should be admitted for further evaluation and monitoring.
Hospitalist team was notified and accepts for continued evaluation and treatment. An additional second liter of fluids have been ordered for his hypotension.
ED Attending Note
-
Portions of this chart may have been created with voice recognition software.� Occasional wrong word or��sound alike� substitutions may have occurred due to the inherent limitations of voice recognition software.
Discharge Plan
Departure
Patient Disposition: Admit
Date of Disposition: 09/12/23
Time of Disposition: 12:17
Presentation/result/management discussed w/ accepting MD/DO: Hospitalist
Discharge Problem:
Orthostatic hypotension, Leukopenia
Interventions
Interventions:
*Risk Screen - Suicide Last Done: 09/12/23 09:01
*General Assessment Last Done: 09/12/23 09:01
*Neglect/Abuse Screening Last Done: 09/12/23 09:01
ED- Fall Risk Assessment Last Done: 09/12/23 09:01
*ED COVID-19 Vaccine History Last Done: 09/12/23 09:01
ED- Cardiac Assessment Last Done: 09/12/23 09:01
ED- Neurological Assessment Last Done: 09/12/23 09:01
[2023-09-12 09:22] LABS: % Basophils 0.8 % (0-2); % Eosinophils 0.8 % (0-6); % Immature Granulocytes 1.6 % (0-0.5); % Lymphocytes 22.7 % (20.5-51.1); % Monocytes 0.8 % (1.7-9.3); % Neutrophils 73.3 % (42.2-75.2); Absolute Lymphocytes 0.3 10^3/uL (1.2-3.4); Hematocrit 32.7 % (39.0-52.0); Hemoglobin 11.4 g/dL (13.0-18.0); Mean Corp Hgb Conc. 34.9 g/dL (33.0-37.0); Mean Corpuscular Hgb 34.3 pg (27.0-31.0); Mean Corpuscular Volume 98.5 fL (80.0-94.0); Mean Platelet Volume 9.3 fL (7.4-10.4); Nucleated Red Blood Cells % 0 % (-); Platelet Count 145 10^3/uL (130-400); Red Blood Cell Count 3.32 10^6/uL (4.70-6.10); Red Cell Dist. Width 16.2 % (11.5-14.5)
[2023-09-12] MEDS: NSS 1000 IV ×3 (09:39→18:31)
[2023-09-12 09:41] LABS: White Blood Cell Count 1.3 10^3/uL (4.8-10.8)
[2023-09-12 09:44] LABS: ALT (SGPT) 81 U/L (0-50); AST (SGOT) 50 U/L (17-59); Albumin 2.7 g/dl (3.5-5.0); Alkaline Phosphatase 108 U/L (38-126); Blood Urea Nitrogen 30 mg/dl (9-20); Calcium 8.3 mg/dl (8.4-10.2); Carbon Dioxide 30 mmol/L (22-30); Chloride 100 mmol/L (98-107); Estimated Creatinine Clearance 97 ml/min; Glucose 89 mg/dl (70-99); Potassium 3.5 mmol/L (3.5-5.1); Sodium 133 mmol/L (135-145); Total Bilirubin 1.1 mg/dl (0.2-1.3); Total Protein 5.2 g/dl (6.3-8.2); eGFR > 60.00
[2023-09-12 10:24] LABS: Absolute Neutrophils 0.9 10^3/uL (1.4-6.5)
[2023-09-12 11:12] LABS: COVID-19 Antigen Negative (Negative)
--- NOTE | 2023-09-12 13:08 | HPS.HSE ---
Family Physician
-
Family Physician: NOT KNOW UNKNOWN - PT DOES
Chief Complaint
-
Unresponsiveness
History of Present Illness
77 y/o M with PMHx:
Bilateral lower extremity weakness, differential includes myasthenia gravis versus statin induced myopathy
Right posterior tibial vein thrombosis
Recent diagnosis of possible polymyalgia rheumatica and was started with prednisone
Mild dysphagia (soft and bite-size diet)
Left Hip Fracture status post ORIF 07/03/2023 with left leg edema
Chronic Cholelithiasis / Choledocholithiasis
Moderate Malnutrition in the context of social circumstances
CKD3
77 M who presents after having an episode of unresponsiveness that lasted approximately 3 minutes. The patient bent over to pull his sock off and became unresponsive. Over the last day the patient states he has felt 'cold.' He has no other acute
complaints. He says he gets frequent urinary tract infections but denies dysuria, hematuria, cloudy urine, change in urinary frequency. Prior to and after his unresponsive episode he denies chest pain, shortness of breath, palpitations. He denies
lightheadedness or cough. Denies headache, visual disturbances, neck stiffness, rash, focal neurological deficit, nausea, vomiting, diarrhea, abdominal pain. He was found to be orthostatic in the ER and was started on IV fluids.
Medical History
Past Medical History
Past Medical History: Reports Other (as per HPI)
Past Surgical History: Reports Other (N/A)
Social History
Tobacco: Non-smoker
Alcohol: None
Drug: None
Family History
Family History: Not pertinent
Allergies / Home Medications
Allergies reflects when Allergies were last updated in [facility].
Home Medications with original date entered in [facility]
Allergy/Medication List:
Allergies
Allergy/AdvReac Type Severity Reaction Status Date / Time
gluten Allergy Celiac Verified 09/12/23 09:11
disease
Home Medications
acetaminophen 325 mg tablet (Tylenol) 650 mg PO Q4HPRN PRN MILD PAIN 08/13/23
aspirin 81 mg tablet,delayed release 81 mg PO DAILY Blood Clot Prevention/Tx 08/13/23
bisacodyl 10 mg rectal suppository (Dulcolax (bisacodyl)) 10 mg TX DAILYPRN PRN CONSTIPATION 08/13/23
escitalopram oxalate 10 mg tablet (Lexapro) 10 mg PO HS Depression 08/13/23
magnesium hydroxide 400 mg/5 mL oral suspension (Milk of Magnesia) 400 mg PO DAILYPRN PRN CONSTIPATION 08/13/23
pantoprazole 40 mg tablet,delayed release (Protonix) 40 mg PO DAILY Gastrointestinal Issue 08/13/23
polyethylene glycol 3350 17 gram oral powder packet (Miralax) 17 g PO DAILYPRN PRN CONSTIPATION 08/13/23
sodium phosphates 19 gram-7 gram/118 mL enema (Fleet Enema) 118 ml TX DAILYPRN PRN CONSTIPATION 08/13/23
apixaban 5 mg tablet (Eliquis) 5 mg PO BID #180 tabs 08/23/23
carvedilol 3.125 mg tablet 3.125 mg PO BID #60 tabs 08/23/23
cyanocobalamin (vitamin B-12) 1,000 mcg tablet 1,000 mcg PO DAILY #30 tabs 08/23/23
prednisone 20 mg tablet 60 mg (3 x 20 mg) PO DAILY #30 tabs 08/23/23
docusate sodium 100 mg capsule 100 mg PO BID 09/12/23
folic acid 1 mg tablet 1 mg PO DAILY 09/12/23
furosemide 20 mg tablet 20 mg PO DAILY 09/12/23
Review of Systems
-
History Source: Patient
A 12 point ROS was completed and negative except as noted: Yes
Physical Exam
Vital Signs
Vital Signs
Temp Pulse Resp BP Pulse Ox
98.2 F 83 15 109/74 98
09/12/23 09:01 09/12/23 12:16 09/12/23 12:16 09/12/23 12:16 09/12/23 12:16
Physical Exam
General: Other (.)
Laboratory Results
-
09/12/23 09:13
09/12/23 09:13
Laboratory Results
Total Bilirubin 1.1 mg/dl (0.2-1.3) 09/12/23 09:13
AST 50 U/L (17-59) 09/12/23 09:13
ALT 81 U/L (0-50) H 09/12/23 09:13
Alkaline Phosphatase 108 U/L (38-126) 09/12/23 09:13
Impression/Plan
-
Gen: NAD, AAOx3, appears chronically ill.
Eyes: EOMI, PERRLA, no scleral icterus.
Neck: supple.
CV: RRR, +S1/S2, no m/r/g.
Resp: CTAB, no rales, wheezes, or rhonchi.
Abd: +BS, soft, NT, ND
Skin: Ecchymoses noted on the arms, no rashes, 2+ bilateral lower extremity edema
Neuro: CN 2-12 intact, non-focal.
Psych: Normal mood and affect.
Orthostatic hypotension:
-2 L of normal saline has been ordered by the ER. Continue with normal saline at 125 cc/hour thereafter
-I do not think at this time we are dealing with acute adrenal insufficiency. If the patient's orthostasis does not improve with volume resuscitation over the next day a cosyntropin stim test could be ordered. Also, see possible occult infection
below. Should infection be ruled out and blood pressure does not improve would recommend cosyntropin stim test as well as stress dose steroids.
-tele x 24 hours
New onset leukopenia and neutropenia:
-afebrile
-Patient reports he has felt cold after over the last 24 hours. His leukopenia is new. ANC is 900 so technically neutropenic. Possible occult infection.
-check U/A and CXR
-Check blood cultures
-Start empiric vancomycin and cefepime
-Consider infectious disease and hematology consultation
Other problems:
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
Recent diagnosis of possible polymyalgia rheumatica: cont Prednisone 60mg daily
Mild dysphagia (soft and bite-size diet)
Left Hip Fracture status post ORIF 07/03/2023 with left leg edema
Chronic Cholelithiasis / Choledocholithiasis
Moderate Malnutrition in the context of social circumstances
CKD3
FULL/Eliquis/tele
[2023-09-12 13:33] LABS: Urine Albumin Negative (Neg - Trace); Urine Bilirubin Negative (Negative); Urine Character Slightly Cloudy (Clear); Urine Color Yellow; Urine Glucose Negative (Negative); Urine Ketone Negative (Negative); Urine Leukocyte 2+ (Negative); Urine Nitrite Negative (Negative); Urine Occult Blood 1+ (Negative); Urine Urobilinogen Negative (Neg - 1+)
--- NOTE | 2023-09-12 13:41 | PHA.VAN.IN ---
Assessment
- Assessment
Renal Function: Appears similar to baseline
Concomitant Antimicrobials: cefepime
AUC Dosing Plan
- Dosing Variables
Dosing Weight (kg): 82
Dosing CrCl (ml/min): 97
Vd coefficient (L/kg): 0.7
- Empiric Dosing
Initial / Loading Dose: 1750 mg x 1 dose ( 21 mg/kg) Load - adm pending
Maintenance Regimen: 1000 mg q12 - first dose 0600 09/13/23
Estimated AUC (mcg*h/mL): 428
Estimated Peak (mcg*h/mL): 27.3
Estimated Trough (mcg/ml): 10.7
Estimated Half Life (H): 8.2
- Monitoring
No levels ordered at this time: consider levels when near steady state
Pharmacokinetics Vancomycin I
- -
Patient Age: 77
Patient Sex: Male
Vancomycin Day #: 1
Indication: Bacteremia
Requesting Provider: ROSIE
Height / Weight:
Height 6 ft
Actual Weight 82.1 kg
Pertinent Past Medical History: ckd 3; L hip fx s/p ORIF 07/03/23; [facility] pt for the past few weeks
- Vital Signs / Lab Results
Temp Pulse Resp BP Pulse Ox
98.2 F 83 15 109/74 98
09/12/23 09:01 09/12/23 12:16 09/12/23 12:16 09/12/23 12:16 09/12/23 12:16
Lab Results - Hematology
09/12/23
09:13
WBC 1.3 L*
Lab Results - Chemistry
09/12/23
09:13
BUN 30 H
Creatinine 0.7
Estimated Creat Clear 97
Albumin 2.7 L
Lab Results - Urine
09/12/23
13:10
Urine Nitrite (Reflex) Negative
Leukocyte Esterase Rfl 2+ A
[2023-09-12] MEDS: MAXIPIME 2000 MG IV ×2 (13:48→21:47)
[2023-09-12] MEDS: STERILE WATER FOR INJECTION 10 ML IV ×2 (13:48→21:47)
[2023-09-12] MEDS: VANCOCIN 535 MG IV (13:52)
[2023-09-12 14:58] LABS: Urine Bacteria Many (Negative); Urine White Cell 30-40 /HPF (0-5)
[2023-09-12] MEDS: COREG PO (20:48)
[2023-09-12] MEDS: ELIQUIS 5 MG PO (20:50)
[2023-09-12] MEDS: LEXAPRO 10 MG PO (20:50)
[2023-09-12] MEDS: COLACE 100 MG PO (20:50)
[2023-09-13] MEDS: NSS 1000 IV ×3 (02:53→21:44)
[2023-09-13 03:02] VITALS: BP 103/56
[2023-09-13] MEDS: STERILE WATER FOR INJECTION 10 ML IV ×4 (05:21→23:53)
[2023-09-13] MEDS: VANCOCIN 200 IV (05:22)
[2023-09-13] MEDS: MAXIPIME 2000 MG IV (05:22)
[2023-09-13 05:43] LABS: % Basophils 0.3 % (0-2); % Eosinophils 0.1 % (0-6); % Immature Granulocytes 1.5 % (0-0.5); % Lymphocytes 7.3 % (20.5-51.1); % Monocytes 5.2 % (1.7-9.3); % Neutrophils 85.6 % (42.2-75.2); Absolute Immature Granulocytes 0.2 10^3/uL (0-0.05); Absolute Lymphocytes 0.9 10^3/uL (1.2-3.4); Absolute Monocytes 0.6 10^3/uL (0.1-0.6); Hematocrit 28.8 % (39.0-52.0); Hemoglobin 9.7 g/dL (13.0-18.0); Mean Corp Hgb Conc. 33.7 g/dL (33.0-37.0); Mean Corpuscular Hgb 34.2 pg (27.0-31.0); Mean Corpuscular Volume 101.4 fL (80.0-94.0); Mean Platelet Volume 9.7 fL (7.4-10.4); Nucleated Red Blood Cells % 0 % (-); Platelet Count 128 10^3/uL (130-400); Red Blood Cell Count 2.84 10^6/uL (4.70-6.10); Red Cell Dist. Width 16.5 % (11.5-14.5); White Blood Cell Count 11.7 10^3/uL (4.8-10.8)
[2023-09-13 06:00] VITALS: BMI 24.1
[2023-09-13 06:33] LABS: Absolute Neutrophils -Man Diff 10.1 10^3/uL (1.4-6.5); Band Neutrophils 19 % (0-3); Lymphocytes 8 % (20-51); Metamyelocytes 1 % (-); Monocytes 4 % (2-9); Platelets Checked Yes; Segmented Neutrophils 68 % (42-75)
[2023-09-13 06:34] LABS: Normal RBC Morphology Yes
[2023-09-13 06:35] LABS: Total Cells Counted 100; Toxic Granulation 1+
[2023-09-13 07:00] VITALS: BP 122/57
[2023-09-13] MEDS: PROTONIX 40 MG PO (08:12)
[2023-09-13] MEDS: DELTASONE 60 MG PO (08:12)
[2023-09-13] MEDS: COREG 3.125 MG PO ×2 (08:12→21:44)
[2023-09-13] MEDS: ASPIR LOW (ENTERIC COATED) 81 MG PO (08:12)
[2023-09-13] MEDS: VITAMIN B-12 1000 MCG PO (08:13)
[2023-09-13] MEDS: FOLVITE 1 MG PO (08:13)
[2023-09-13] MEDS: ELIQUIS 5 MG PO ×2 (08:14→21:22)
[2023-09-13] MEDS: COLACE 100 MG PO ×2 (08:14→21:22)
[2023-09-13 11:00] VITALS: BP 114/59
--- NOTE | 2023-09-13 11:22 | CON.ID ---
Consultation
-
Date/Time Consultation Requested: 09/13/2023 08:29
Date/Time Consultation Performed: 09/13/2023 1100
Requesting Provider: Dr. Leon
Performing Provider: Dr. Tracy
Reason for Consultation: Bacteremia
Chief Complaint / Past History
History of Present Illness
Steffen Soriano is a 77-year-old male being evaluated at the request of Dr. Leon in regards to bacteremia. History is obtained from chart review, patient interview.
The patient has a significant past medical history of polymyalgia rheumatica and suspected myasthenia gravis, and recently was on pulse dose steroids and IVIG. Further history includes that of a left hip fracture s/p ORIF on 07/03/2023. He was
discharged to rehab on 08/23/2023. He reports that he was making progress in rehab, but on 09/11 he developed a syncopal episode while sitting in his wheelchair. According to ER records he became unresponsive for approximately 3 minutes. He recalls
that day he had shaking chills. He was transferred to the emergency room, where blood cultures were obtained, which have now been found to be positive for gram-negative rods.
At this time he denies any specific complaints. He denies any headache. He denies any cough or congestion. He denies any abdominal pain, nausea or vomiting. He notes that he has previously had urinary tract infections (approximately 1/year for
the past several years). He also notes that he has been evaluated by Urology, but this has not been in the recent past.
At the present time he denies any dysuria or hematuria. He reports no diarrhea.
Past History
Additional Past Medical History:
CAD
Hx CVA (2018)
GERD
HTN
Dyslipidemia
Hx CKD stage III
Cholelithiasis
Hx UTI
Suspected PMR
Suspected myasthenia gravis
Additional Past Surgical History:
Left hip fracture (ORIF 07/03/2023)
Allergy History:
gluten Allergy (Verified 09/12/23 09:11)
Celiac disease
Medications Reviewed: Yes
Current Antibiotics:
Vancomycin
Cefepime 2 g IV every 8 hours
Social History
Tobacco: Non-Smoker
Alcohol: None
Drug: None
Personal:
Living: With Family
Employment: Retired
Family History
Family History: Not Pertinent
Review of Systems
Vital Signs
Temp Pulse Resp BP Pulse Ox
97.9 F 63 18 122/57 99
09/13/23 07:00 09/13/23 08:12 09/13/23 07:00 09/13/23 08:12 09/13/23 07:00
Physical Exam
Physical Exam
Constitutional: No Acute Distress, Comfortable, Chronically Ill and Non-toxic
Head: Normocephalic
Eyes: Pupils Equal, Pupils Round, No Conjunctival Hemorrhage and Sclera Anicteric
Oral: No Thrush and No Ulcers
Lymph Nodes: Negative Lymphadenopathy
Cardiovascular: Regular Rate and S1/S2; Negative S3/S4 or Murmur
Pulmonary: Clear; Negative Wheezes, Rales or Rhonchi
Gastrointestinal: Soft, Non Tender, Non Distended, Normal Bowel Sounds, No Rebound and No Guarding
Genito-Urinary: Negative Villareal, Suprapubic Tenderness or CVA Tenderness
Extremities: Edema (3+ B/L LE's) and Pulses; Negative Cyanosis or Erythema
Skin: Warm and Dry; Negative Rash or Jaundice
Neurological: Awake, Alert and Oriented
Psychological: Calm
Lab / Diagnostic Study Results
09/13/23 05:08
09/12/23 09:13
Abs Immat Gran (auto) 0.2 10^3/uL (0-0.05) H 09/13/23 05:08
Absolute Neuts (auto) 10.0 10^3/uL (1.4-6.5) H 09/13/23 05:08
Absolute Lymphs (auto) 0.9 10^3/uL (1.2-3.4) L 09/13/23 05:08
Absolute Monos (auto) 0.6 10^3/uL (0.1-0.6) 09/13/23 05:08
Absolute Basos (auto) 0.0 10^3/uL (0-0.2) 09/13/23 05:08
Total Counted 100 09/13/23 05:08
Immature Gran % 1.5 % (0-0.5) H 09/13/23 05:08
Neutrophils % 85.6 % (42.2-75.2) H 09/13/23 05:08
Lymphocytes % 7.3 % (20.5-51.1) L 09/13/23 05:08
Monocytes % 5.2 % (1.7-9.3) 09/13/23 05:08
Eosinophils % 0.1 % (0-6) 09/13/23 05:08
Basophils % 0.3 % (0-2) 09/13/23 05:08
Abs Neuts (Manual) 10.1 10^3/uL (1.4-6.5) H 09/13/23 05:08
Segmented Neutrophils 68 % (42-75) 09/13/23 05:08
Band Neutrophils 19 % (0-3) H 09/13/23 05:08
Lymphocytes (Manual) 8 % (20-51) L 09/13/23 05:08
Microbiology Results
Micro:
09/12/23 13:42 Blood Culture - Preliminary
Blood/Venous Enterobacter species
Gram Stain - Preliminary
09/12/23 13:10 Urine Culture - Preliminary
Urine Gram negative bacilli
09/12/23 13:42 Blood Culture - Preliminary
Blood/Venous Positive culture in progress
Gram Stain - Preliminary
Imaging:
09/12/2023 CXR (2 view): There is no parenchymal opacification or vascular congestion noted. Cardiomediastinal silhouettes are within limits of normal.
Assessment / Plan
Gram-negative barry bacteremia
Suspected complicated urinary tract infection
Leukocytosis (prior leukopenia)
Hx chills
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
CAD
Hx CVA (2018)
GERD
HTN
Dyslipidemia
Hx CKD stage III
Cholelithiasis
Hx UTI
Suspected PMR
Suspected myasthenia gravis
Recommendations:
Blood cultures reviewed, and currently are showing an Enterobacter species (by PCR methodology)
D/C further cefepime and vanco.
Begin meropenem 500 mg IV q 6 hr.
Repeat blood cultures to assess clearance
Check renal US to assess for obstructive uropathy.
Monitor white count and temperature curve.
--- NOTE | 2023-09-13 12:00 | W.PN.HOSP.TC ---
Today's Communication/Plan
-
Decrease IV fluid
Antibiotics per ID
Renal bladder ultrasound
Trend CBC
Assessment / Plan
Assessment / Plan
Gen: NAD, AAOx3, appears chronically ill.
Eyes: EOMI, PERRLA, no scleral icterus.
Neck: supple.
CV: RRR, +S1/S2, no m/r/g.
Resp: CTAB, no rales, wheezes, or rhonchi.
Abd: +BS, soft, NT, ND
Skin: Ecchymoses noted on the arms, no rashes, 2+ bilateral lower extremity edema
Neuro: CN 2-12 intact, non-focal.
Psych: Normal mood and affect.
Sepsis secondary to Enterobacter species and UTI
History of frequent UTIs
Blood pressure started to stabilize
Decrease IV fluid rate
Vanco discontinued. Cefepime discontinued
Started on meropenem by infectious disease
Check renal bladder ultrasound
Repeat surveillance cultures pending
ID evaluation
Chronic thrombocytopenia likely exacerbated due to sepsis
Hemoglobin down tolerated to severe IV fluid/dilutional
Neutropenia resolved likely secondary to sepsis
Trend CBC
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
Recent diagnosis of possible polymyalgia rheumatica: cont Prednisone 60mg daily
Mild dysphagia (soft and bite-size diet)
Left Hip Fracture status post ORIF 07/03/2023 with left leg edema
Chronic Cholelithiasis / Choledocholithiasis
Moderate Malnutrition in the context of social circumstances
CKD3
FULL/Eliquis/tele
Anticipated Discharge: > 48 hours
Subjective/Interval History
-
Date of Service: September 13, 2023
states feeling better
states hx of UTI
Denies dysuria or hematuria
Objective Data
-
Labs:
Laboratory Results
07/01/24
05:08
WBC 11.7 H
Hgb 9.7 L
Hct 28.8 L
Plt Count 128 L
Vital Signs:
Vital Signs
Temp Pulse Resp BP Pulse Ox
98.0 F 65 18 114/59 99
09/13/23 11:00 09/13/23 11:00 09/13/23 11:00 09/13/23 11:00 09/13/23 11:00
I&O
09/12/23 09/13/23 09/14/23
06:59 06:59 06:59
Intake Total 1815 / 1815
Output Total 800 / 800
Balance 1015 / 1015
Data Reviewed
-
Total Time Spent with Patient (in minutes): 55
[2023-09-13] MEDS: MERREM 500 MG IV ×3 (12:02→23:53)
--- NOTE | 2023-09-13 14:57 | CM ---
Met with pt at bedside
Pt was inpatient at [facility] - was sent to ER for eval
Pt reports ambulating with RW, feeds self - would like to return to [facility] when d/c'ed
Previously lived with his in a 2 story home - has FF set-up, 5 steps to enter home
Was independent previously
Has ride at d/c
DME - none
SNF - [facility] in past
HH - denies past hx
PCP - DR Catrina Franco
Pharm - [facility]
Pending PT/OT recs
Plan - anticipate snf when medically stable
[2023-09-13 15:00] VITALS: BP 122/63
[2023-09-13 19:00] VITALS: BP 137/59
[2023-09-13] MEDS: LEXAPRO 10 MG PO (21:22)
[2023-09-13 23:00] VITALS: BP 132/67
[2023-09-14] VITALS (8 sets, daily range): BP systolic 128–157; BP diastolic 60–75; PULSE 64–122; O2SAT 96; BMI 24.7
[2023-09-14] MEDS: STERILE WATER FOR INJECTION 10 ML IV ×4 (05:40→23:25)
[2023-09-14] MEDS: MERREM 500 MG IV ×4 (05:40→23:25)
[2023-09-14 06:20] LABS: % Basophils 0.2 % (0-2); % Eosinophils 0.6 % (0-6); % Immature Granulocytes 1.3 % (0-0.5); % Lymphocytes 11.9 % (20.5-51.1); % Monocytes 5.6 % (1.7-9.3); % Neutrophils 80.4 % (42.2-75.2); Absolute Eosinophils 0.1 10^3/uL (0-0.7); Absolute Immature Granulocytes 0.1 10^3/uL (0-0.05); Absolute Lymphocytes 1.2 10^3/uL (1.2-3.4); Absolute Monocytes 0.6 10^3/uL (0.1-0.6); Absolute Neutrophils 8.3 10^3/uL (1.4-6.5); Hematocrit 31.1 % (39.0-52.0); Hemoglobin 10.2 g/dL (13.0-18.0); Mean Corp Hgb Conc. 32.8 g/dL (33.0-37.0); Mean Corpuscular Hgb 33.9 pg (27.0-31.0); Mean Corpuscular Volume 103.3 fL (80.0-94.0); Mean Platelet Volume 9.7 fL (7.4-10.4); Nucleated Red Blood Cells % 0 % (-); Platelet Count 147 10^3/uL (130-400); Red Blood Cell Count 3.01 10^6/uL (4.70-6.10); Red Cell Dist. Width 16.8 % (11.5-14.5); White Blood Cell Count 10.3 10^3/uL (4.8-10.8)
[2023-09-14 06:55] LABS: Blood Urea Nitrogen 27 mg/dl (9-20); Calcium 7.8 mg/dl (8.4-10.2); Carbon Dioxide 26 mmol/L (22-30); Chloride 105 mmol/L (98-107); Estimated Creatinine Clearance 97 ml/min; Glucose 85 mg/dl (70-99); Potassium 3.4 mmol/L (3.5-5.1); Sodium 134 mmol/L (135-145); eGFR > 60.00
[2023-09-14] MEDS: NSS IV (07:45)
[2023-09-14] MEDS: SENOKOT-S 1 TABLET PO (07:46)
[2023-09-14] MEDS: TYLENOL 650 MG PO (07:46)
[2023-09-14] MEDS: PROTONIX 40 MG PO (07:46)
[2023-09-14] MEDS: COREG 3.125 MG PO ×2 (07:47→21:21)
[2023-09-14] MEDS: DELTASONE 60 MG PO (07:47)
[2023-09-14] MEDS: COLACE 100 MG PO ×2 (07:48→21:21)
[2023-09-14] MEDS: ASPIR LOW (ENTERIC COATED) 81 MG PO (07:48)
[2023-09-14] MEDS: FOLVITE 1 MG PO (07:48)
[2023-09-14] MEDS: VITAMIN B-12 1000 MCG PO (07:48)
[2023-09-14] MEDS: ELIQUIS 5 MG PO ×2 (07:48→21:21)
[2023-09-14] MEDS: KCL 260 MEQ IV (07:50)
--- NOTE | 2023-09-14 11:12 | W.PN.HOSP.TC ---
Today's Communication/Plan
-
IV abx
await surveillance cultures
PT/OT
ID recs
Assessment / Plan
Assessment / Plan
Gen: NAD, AAOx3, appears chronically ill.
Eyes: EOMI, PERRLA, no scleral icterus.
Neck: supple.
CV: RRR, +S1/S2, no m/r/g.
Resp: CTAB, no rales, wheezes, or rhonchi.
Abd: +BS, soft, NT, ND
Skin: Ecchymoses noted on the arms, no rashes, 2+ bilateral lower extremity edema
Neuro: CN 2-12 intact, non-focal.
Psych: Normal mood and affect.
#Sepsis secondary to Enterobacter species bacteremia and klebsiella UTI
#History of frequent UTIs
Blood pressure started to stabilize
DC IVF
Vanco discontinued. Cefepime discontinued
Started on meropenem by infectious disease
Check renal bladder ultrasound-negative for hydro/obstruction
Repeat surveillance cultures in lab
ID recs
Chronic thrombocytopenia likely exacerbated due to sepsis
Hemoglobin down tolerated to severe IV fluid/dilutional
Neutropenia resolved likely secondary to sepsis
Trend CBC
Hypokalaemia
replete/monitor
Chronic Hyponatremia
Na improving
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
Recent diagnosis of possible polymyalgia rheumatica: cont Prednisone 60mg daily
Mild dysphagia (soft and bite-size diet)
Left Hip Fracture status post ORIF 07/03/2023 with left leg edema
Chronic Cholelithiasis / Choledocholithiasis
Moderate Malnutrition in the context of social circumstances
CKD3
FULL/Eliquis/tele
PT/OT-Probably will require SNF on dc.
update spouse over the phone in details.
Anticipated Discharge: > 48 hours
Subjective/Interval History
-
Date of Service: September 14, 2023
feeling better
afebrile
Objective Data
-
Labs:
Laboratory Results
09/14/23
05:21
WBC 10.3
Hgb 10.2 L
Hct 31.1 L
Plt Count 147
Sodium 134 L
Potassium 3.4 L
Chloride 105
Carbon Dioxide 26
BUN 27 H
Creatinine 0.7
Glucose 85
Calcium 7.8 L
Vital Signs:
Vital Signs
Temp Pulse Resp BP Pulse Ox
97.5 F 67 18 143/73 98
09/14/23 11:00 09/14/23 11:00 09/14/23 11:00 09/14/23 11:00 09/14/23 11:00
I&O
09/13/23 09/14/23 09/15/23
06:59 06:59 06:59
Intake Total 1815 / 1815 1500 / 1500
Output Total 800 / 800 1150 / 1150
Balance 1015 / 1015 350 / 350
Data Reviewed
-
Total Time Spent with Patient (in minutes): 55
--- NOTE | 2023-09-14 13:29 | W.PN.ID1 ---
Date of Service
Date of Service: September 14, 2023
Today's Communication
Continue antibiotics.
Assessment / Plan
Gram-negative barry bacteremia
Suspected complicated urinary tract infection
Leukocytosis (prior leukopenia)
Hx chills
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
CAD
Hx CVA (2018)
GERD
HTN
Dyslipidemia
Hx CKD stage III
Cholelithiasis
Hx UTI
Suspected PMR
Suspected myasthenia gravis
Recommendations:
Blood cultures reviewed, and currently are showing an Enterobacter species (by PCR methodology)
Continue meropenem 500 mg IV q 6 hr.
Repeat blood cultures to assess clearance. Await final identification of blood culture isolate to guide further antimicrobial selection/de-escalation.
Renal ultrasound without obstructive uropathy.
Monitor white count and temperature curve.
����������������������������������������������������������
Chief Complaint
-: UTI and Bacteremia
Subjective / Review of Systems
Review of Systems: No Fever and No Chills
Vital Signs / Physical Exam
Vital Signs
Vital Signs
Temp Pulse Resp BP Pulse Ox
97.5 F 67 18 143/73 98
09/14/23 11:00 09/14/23 11:00 09/14/23 11:00 09/14/23 11:00 09/14/23 11:00
Physical Exam
Constitutional: No Acute Distress, Comfortable, Chronically Ill and Non-toxic
Eyes: No Conjunctival Hemorrhage
Cardiovascular: S1/S2; Negative S3/S4
Pulmonary: Non Labored
Gastrointestinal: Soft, Non Tender and Non Distended
Extremities: Edema (3+ LE edema)
Neurological: Awake and Alert
Psychological: Calm
Objective Data
Lab Data
Lab Results
09/14/23 05:21
09/14/23 05:21
Estimated Creat Clear 97 ml/min 09/14/23 05:21
Total Bilirubin 1.1 mg/dl (0.2-1.3) 09/12/23 09:13
AST 50 U/L (17-59) 09/12/23 09:13
ALT 81 U/L (0-50) H 09/12/23 09:13
Alkaline Phosphatase 108 U/L (38-126) 09/12/23 09:13
Most recent labs reviewed.
Micro Results:
09/13/23 11:56 Blood Culture - Preliminary
Blood/Venous No Growth in 24 hours- Final report to follow
09/12/23 13:42 Blood Culture - Preliminary
Blood/Venous Enterobacter species
Gram Stain - Preliminary
09/12/23 13:42 Blood Culture - Preliminary
Blood/Venous Positive culture in progress
Gram Stain - Preliminary
09/12/23 13:10 Urine Culture - Final
Urine Klebsiella aerogenes
09/13/23 13:20 Blood Culture - Pending
Blood/Venous
Imaging:
09/12/2023 CXR (2 view): There is no parenchymal opacification or vascular congestion noted. Cardiomediastinal silhouettes are within limits of normal.
--- NOTE | 2023-09-14 15:22 | CM ---
Case management following for d/c planning
Discussed d/c planning with pt - [facility] recommending SNF as pt was to be d/c'ed today from [facility]
Pt reports he prefers to go home with services - requested CM call his to discuss plan
Called pts [facility] [phone] to discuss d/c plans - LM with call back #
CM will cont to follow for d/c needs
[2023-09-14] MEDS: LEXAPRO 10 MG PO (21:21)
[2023-09-15 03:30] VITALS: BP 144/66
[2023-09-15 05:45] LABS: % Basophils 0.3 % (0-2); % Eosinophils 1.1 % (0-6); % Immature Granulocytes 2.5 % (0-0.5); % Lymphocytes 16.6 % (20.5-51.1); % Monocytes 5.3 % (1.7-9.3); % Neutrophils 74.2 % (42.2-75.2); Absolute Eosinophils 0.1 10^3/uL (0-0.7); Absolute Immature Granulocytes 0.3 10^3/uL (0-0.05); Absolute Lymphocytes 1.8 10^3/uL (1.2-3.4); Absolute Monocytes 0.6 10^3/uL (0.1-0.6); Hematocrit 33.1 % (39.0-52.0); Mean Corp Hgb Conc. 33.2 g/dL (33.0-37.0); Mean Corpuscular Hgb 33.7 pg (27.0-31.0); Mean Corpuscular Volume 101.5 fL (80.0-94.0); Mean Platelet Volume 9.8 fL (7.4-10.4); Nucleated Red Blood Cells % 0 % (-); Platelet Count 156 10^3/uL (130-400); Red Blood Cell Count 3.26 10^6/uL (4.70-6.10); Red Cell Dist. Width 16.2 % (11.5-14.5); White Blood Cell Count 10.7 10^3/uL (4.8-10.8)
[2023-09-15] MEDS: STERILE WATER FOR INJECTION 10 ML IV (06:00)
[2023-09-15] MEDS: MERREM 500 MG IV (06:00)
[2023-09-15] MEDS: TYLENOL 650 MG PO (06:06)
[2023-09-15 06:09] LABS: Blood Urea Nitrogen 27 mg/dl (9-20); Calcium 8.1 mg/dl (8.4-10.2); Carbon Dioxide 30 mmol/L (22-30); Chloride 103 mmol/L (98-107); Estimated Creatinine Clearance 85 ml/min; Glucose 85 mg/dl (70-99); Sodium 132 mmol/L (135-145); eGFR > 60.00
[2023-09-15 08:17] VITALS: BP 164/76
[2023-09-15] MEDS: PROTONIX 40 MG PO (08:22)
[2023-09-15] MEDS: VITAMIN B-12 1000 MCG PO (08:22)
[2023-09-15] MEDS: DELTASONE 60 MG PO (08:22)
[2023-09-15] MEDS: ELIQUIS 5 MG PO ×2 (08:22→21:09)
[2023-09-15] MEDS: ASPIR LOW (ENTERIC COATED) 81 MG PO (08:23)
[2023-09-15] MEDS: COLACE PO ×2 (08:23→08:30)
[2023-09-15] MEDS: COREG 3.125 MG PO ×2 (08:23→21:09)
[2023-09-15] MEDS: FOLVITE 1 MG PO (08:23)
--- NOTE | 2023-09-15 10:16 | CM ---
Addendum entered by Joanne Delgado 09/15/23 14:23:
Spoke with pt [facility]
Reports she has reached out to [facility] and has requested to speak with Dr French concerning pts discharge
Family prefers [facility]
Spoke with Elio at [facility] and requested physician order PM&R consult
Pending PM&R consult
Plan - acute rehab vs snf at d/c
Original Note:
Case management following for d/c planning
Attempted to call pts [facility] [phone] to discuss d/c plans - LM with call back #
No auth needed
Plan - snf at d/c
--- NOTE | 2023-09-15 11:30 | W.PN.HOSP.TC ---
Today's Communication/Plan
-
IV abx
ID recs
CM for SNF
start dispo efforts
Assessment / Plan
Assessment / Plan
Gen: NAD, AAOx3, appears chronically ill.
Eyes: EOMI, PERRLA, no scleral icterus.
Neck: supple.
CV: RRR, +S1/S2, no m/r/g.
Resp: CTAB, no rales, wheezes, or rhonchi.
Abd: +BS, soft, NT, ND
Skin: Ecchymoses noted on the arms, no rashes, 2+ bilateral lower extremity edema
Neuro: CN 2-12 intact, non-focal.
Psych: Normal mood and affect.
#Sepsis secondary to klebsiella bacteremia and klebsiella UTI
#History of frequent UTIs
Blood pressure started to stabilize
DC IVF
Vanco discontinued. Cefepime discontinued
Started on meropenem by infectious disease
Check renal bladder ultrasound-negative for hydro/obstruction
Repeat surveillance cultures in lab 09/12-neg so far
await for finalized culture data
ID recs
Chronic thrombocytopenia likely exacerbated due to sepsis
Hemoglobin down tolerated to severe IV fluid/dilutional
Neutropenia resolved likely secondary to sepsis
Trend CBC
Dysphagia
speech eval
Hypokalemia
replete/monitor
Chronic Hyponatremia
Na improving
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
Recent diagnosis of possible polymyalgia rheumatica: cont Prednisone 60mg daily
Mild dysphagia (soft and bite-size diet)
Left Hip Fracture status post ORIF 07/03/2023 with left leg edema
Chronic Cholelithiasis / Choledocholithiasis
Moderate Malnutrition in the context of social circumstances
CKD3
FULL/Eliquis/tele
PT/OT-Probably will require SNF on dc. CM aware
update spouse over the phone in details on 09/13.
Anticipated Discharge: > 48 hours
Subjective/Interval History
-
Date of Service: September 15, 2023
afebrile
placing LE compression stocking with assistance
Objective Data
-
Labs:
Laboratory Results
09/15/23
05:26
WBC 10.7
Hgb 11.0 L
Hct 33.1 L
Plt Count 156
Sodium 132 L
Potassium 4.0
Chloride 103
Carbon Dioxide 30
BUN 27 H
Creatinine 0.8
Glucose 85
Calcium 8.1 L
Vital Signs:
Vital Signs
Temp Pulse Resp BP Pulse Ox
97.8 F 65 16 164/76 98
09/15/23 08:17 09/15/23 08:23 09/15/23 08:17 09/15/23 08:23 09/15/23 08:17
I&O
09/14/23 09/15/23 09/16/23
06:59 06:59 06:59
Intake Total 1500 / 1500 1969 / 1969
Output Total 1150 / 1150 1375 / 1375
Balance 350 / 350 595 / 595
--- NOTE | 2023-09-15 11:45 | W.PN.ID1 ---
Date of Service
Date of Service: September 15, 2023
Today's Communication
Transition to oral Levaquin
Assessment / Plan
Klebsiella bacteremia
Suspected complicated urinary tract infection
Leukocytosis (prior leukopenia)
Hx chills
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
CAD
Hx CVA (2018)
GERD
HTN
Dyslipidemia
Hx CKD stage III
Cholelithiasis
Hx UTI
Suspected PMR
Suspected myasthenia gravis
Recommendations:
Renal ultrasound without obstructive uropathy.
Blood cultures and urine cultures reveal presence of Klebsiella aerogenes.
Will transition to Levaquin 500 mg p.o. daily for an additional 7 days of therapy.
����������������������������������������������������������
Chief Complaint
-: UTI and Bacteremia
Subjective / Review of Systems
Review of Systems: No Fever, No Chills, No Nausea and No Diarrhea
Vital Signs / Physical Exam
Vital Signs
Vital Signs
Temp Pulse Resp BP Pulse Ox
97.8 F 65 16 164/76 98
09/15/23 08:17 09/15/23 08:23 09/15/23 08:17 09/15/23 08:23 09/15/23 08:17
Physical Exam
Constitutional: No Acute Distress, Comfortable, Chronically Ill and Non-toxic
Eyes: No Conjunctival Hemorrhage
Cardiovascular: S1/S2; Negative S3/S4
Pulmonary: Non Labored
Gastrointestinal: Soft, Non Tender and Non Distended
Extremities: Edema (3+ LE edema)
Skin: Negative Rash or Jaundice
Neurological: Awake and Alert
Psychological: Calm
Objective Data
Lab Data
Lab Results
09/15/23 05:26
09/15/23 05:26
Estimated Creat Clear 85 ml/min 09/15/23 05:26
Total Bilirubin 1.1 mg/dl (0.2-1.3) 09/12/23 09:13
AST 50 U/L (17-59) 09/12/23 09:13
ALT 81 U/L (0-50) H 09/12/23 09:13
Alkaline Phosphatase 108 U/L (38-126) 09/12/23 09:13
Most recent labs reviewed.
Micro Results:
09/12/23 13:42 Blood Culture - Preliminary
Blood/Venous Klebsiella aerogenes
Gram Stain - Preliminary
09/13/23 13:20 Blood Culture - Preliminary
Blood/Venous No Growth in 24 hours- Final report to follow
09/13/23 11:56 Blood Culture - Preliminary
Blood/Venous No Growth in 24 hours- Final report to follow
09/12/23 13:42 Blood Culture - Preliminary
Blood/Venous Positive culture in progress
Gram Stain - Preliminary
09/12/23 13:10 Urine Culture - Final
Urine Klebsiella aerogenes
asdf
Blood Culture Preliminary 09/12/2023
Organism 1 Klebsiella aerogenes
1. Klebsiella aerogenes (previously Enterobacter aerogenes)
M.I.[facility]. RX
--------- ---
Amoxicillin/Potas. Clavulanate >16/8 R
Ampicillin >16 R
Ampicillin/Sulbactam <=8/4 R
Cefazolin >16 R
Cefepime <=2 S
Ceftazidime <=1 S
Ceftriaxone <=1 S
Ertapenem <=0.5 S
Ciprofloxacin <=0.25 S
Gentamicin <=4 S
Levofloxacin <=0.5 S
Meropenem <=1 S
Piperacillin/Tazobactam <=16 S
Tobramycin <=4 S
Trimethoprim/Sulfamethoxazole <=2/38 S
Imaging:
09/12/2023 CXR (2 view): There is no parenchymal opacification or vascular congestion noted. Cardiomediastinal silhouettes are within limits of normal.
Care Review
Plan reviewed with: Physician (Hospitalist)
[2023-09-15 12:03] VITALS: BP 134/72; PULSE 140; PULSE 68; O2SAT 97
[2023-09-15 12:05] VITALS: BP 134/72
[2023-09-15] MEDS: LEVAQUIN 500 MG PO (12:59)
--- NOTE | 2023-09-15 14:33 | PTOTSP ---
MANAGER DISTRIBUTION Consult Note
Dysphagia evaluation orders appreciated. Spoke with physician. Evaluation placed as last known diet in acute care was a dysphagia diet (i.e., IDDSI Level 6 Soft/bite sized and thin liquids.) Per chart review, patient was advanced to a regular,
thin liquid diet after a video swallow study at [facility] 09/06/2023. As patient is not having acute difficulty swallowing, please advance to last known diet. Dysphagia consult not warranted at this time. Please reconsult as appropriate.
Recommendations per last video swallow study:
1. Regular solids and thin liquids
2. Small bites and chew well
3. Single sips of liquid
4. Chin tuck and dry swallow with all PO
5. Meds with liquid as tolerated.
--- NOTE | 2023-09-15 15:41 | CON.MD ---
Documented by User: Marika Pimentel PA-C 09/15/23 19:03
Consultation - Medical
-
Referral: Louis Spence
Chief Complaint: Weakness, Deconditioning
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
myositis or toxic/necrotic myopathy) who was in [facility] for debility and weakness when he became unresponsive On 09/12/2023, and was sent to [facility]. Found to have sepsis/UTI: Klebsiella bacteremia. Blood cultures and
urine cultures reveal presence of Klebsiella aerogenes. Transitioned to Levaquin 500 mg p.o. daily for an additional 7 days of therapy until September 21. (Vanco discontinued. Cefepime discontinued)
Past Medical History: ASCVD, hypertension and recent L hip fracture / repair, CKD3 GERD, Celiac disease, Lumbar DDD, Cholelithiasis
Procedure History: Left hip ORIF 06/2023, Left Iliac Vein Stenting, Hernia Repairs, Cataracts, Eye Surgery (in childhood)
Family History: Heart disease
Social History:
Functional Level Premorbidly: Independent with all activities
Functional Level Currently: Bed mobility�mod assist, transfer sit to stand�mod assist, stand to sit�mod assist, ambulates 12 feet with rolling walker with min assist x 1 progressing to mod assist and then max assist at the becomes fatigued during
turns
Tobacco: Denies
Alcohol: Denies
Drug use: Denies
Lives with: Spouse
24-hour assistance available: Yes
Number of floors: multilevel
# steps to enter: 4
# steps to second floor: Full flight
Potential First floor set up:yes
Driving: was previously until recent surgery
Occupation: retired
Allergies:
Allergy/AdvReac Type Severity Reaction Status Date / Time
gluten Allergy Unknown Verified 08/13/23 17:09
Review of Systems:
Constitutional: (x) abNormal _fatigue
Eye: (x) Normal _
Ear/Nose/Throat: (x) Normal _
Respiratory: (x) Normal _
Cardiovascular: (x) Normal _
Gastrointestinal: (x) sepsis, UTI
Genitourinary: (x) Normal _
Musculoskeletal: (x)back, weakness, s/p left hip orif
Integumentary: (x) Normal _
Neurologic: (x) Normal _
Psychiatric: (x) Normal _
Endocrine: (x) Normal _
Hematologic/Lymphatic: (x) Normal _
Allergic/Immunologic: (x) Normal _
Active Current Visit Medication List
Category Date Time Status
Acetaminophen [Tylenol] Med 09/12/23 16:44 Active
650 mg PO Q4HPRN PRN
Apixaban [Eliquis] Med 09/12/23 20:00 Active
5 mg PO BID
Aspirin Low Dose EC [Aspir Low (Enteric Coated)] Med 09/13/23 08:00 Active
81 mg PO DAILY
Bisacodyl [Dulcolax] Med 09/12/23 16:44 Active
10 mg RECTAL DAILYPRN PRN
Carvedilol [Coreg] Med 09/12/23 20:00 Active
3.125 mg PO BID
Cyanocobalamin [Vitamin B-12] Med 09/13/23 08:00 Active
1,000 mcg PO DAILY
Docusate Sodium [Colace] Med 09/12/23 20:00 Active
100 mg PO BID
Docusate W/Senna [Senokot-S] Med 09/12/23 16:44 Active
1 tablet PO BIDPRN PRN
Escitalopram Oxalate [Lexapro] Med 09/12/23 22:00 Active
10 mg PO HS
FOLic ACID [Folvite] Med 09/13/23 08:00 Active
1 mg PO DAILY
Flush (0.9% Sodium Chloride) [Flush (Nss)] Med 09/12/23 19:00 Active
See Dose Instructions IV PER PROTOCOL
LevoFLOXacin [Levaquin] Med 09/15/23 12:00 Active
500 mg PO DAILY
Magnesium Hydroxide [Milk of Magnesia] Med 09/12/23 16:44 Active
30 ml PO DAILYPRN PRN
Pantoprazole [Protonix] Med 09/13/23 08:00 Active
40 mg PO DAILY
Phosphate Enema [Fleet Phosphate Enema-Adult] Med 09/12/23 16:44 Active
118 ml RECTAL DAILYPRN PRN
Polyethylene Glycol Powder [Miralax] Med 09/12/23 16:44 Active
17 grams PO DAILYPRN PRN
Prednisone [Deltasone] Med 09/13/23 08:00 Active
60 mg PO DAILY
Vitals:
Temp Pulse Resp BP Pulse Ox
98 F 67 16 134/72 98
09/15/23 12:05 09/15/23 12:05 09/15/23 12:05 09/15/23 12:05 09/15/23 13:30
Height 6 ft
Actual Weight 82.69 kg
Body Mass Index (BMI) 24.7
Physical Exam:
General Appearance/Observation: Well-developed, well-nourished male in no apparent distress.
Pain/Comfort Assessment: Denies
Mood/Affect: Appropriate
Integumentary/Operative Site:
�� Pressure Ulcer Evaluation: absent over heels.
Eyes: Conjunctiva/Lids: normal ��� Pupils: pupils equal round and reactive to light and Accommodation
Ears/Nose/Throat: oral mucosa moist,� throat clear.������������ Lips/Teeth/Gums: normal
Neck: No muscle spasm or tenderness
Cardiovascular: Heart: regular, no murmur
Pulses: dorsalis pedis 1+ bilaterally
Respiratory: Respiratory Effort/Chest Expansion: normal ������� Auscultation: Clear to auscultation bilaterally
Gastrointestinal: abdomen not tender, no distension, normal abdominal bowel sounds
Genitourinary: No Villareal
Extremities: Edema: Moderate pitting edema of whole LLE- improved from prior, slight pitting edema in RLE Cyanosis: None Trophic changes: None
Neurology Exam:
Orientation: Alert, Oriented to self, Time, Place
Memory: Intact for immediate concerns
Repetition: Intact
Comprehension: Intact
Two step command: Intact
Naming: Intact
Cranial Nerves:
�� CNII: Pupillary light reflex: Intact��� Visual Field: Intact
�� CN III, IV, : Extraocular muscles: Intact
�� CN V: Facial Sensation at Forehead: Intact, Maxilla: Intact, Mandible: Intact
�� CN VII: Facial movement: Symmetric
�� CN VIII: Hearing: Normal
�� CN IX/X: Speech & swallow: Normal, Position of Uvula: Midline
�� CN XI: Shoulder shrug: Symmetric
�� CN XII: Tongue protrusion: Midline
Sensory:
�� Light touch: Intact in bilateral upper and lower extremities
Reflexes:
�� Biceps: 2+ bilaterally
�� Brachioradialis: 2+ bilaterally
�� Triceps: 2+ bilaterally
�� Patellar: absent bilaterally
�� Achilles:absent bilaterally
�� Babinski: Down going bilaterally
�� Cecilio: Negative bilaterally
Cerebellar: Dysmetria/Ataxia: not tested.
Musculoskeletal: Motor: (Manual muscle scale 0-5)
Muscle SA EF WE EE FF FA HF KE DF EHL PF
Right� 2 4 4 3 3 3 2 2 5 5 5
Left 2 4 4 3 3 3 1 2 3- 1 3
Tone: Normal in all extremities
Range of Motion: Passively within normal limits in all extremities
Lab Results
Labs
WBC 10.7 10^3/uL (4.8-10.8) 09/15/23 05:26
RBC 3.26 10^6/uL (4.70-6.10) L 09/15/23 05:26
Hgb 11.0 g/dL (13.0-18.0) L 09/15/23 05:26
Hct 33.1 % (39.0-52.0) L 09/15/23 05:26
MCV 101.5 fL (80.0-94.0) H 09/15/23 05:26
MCH 33.7 pg (27.0-31.0) H 09/15/23 05:26
MCHC 33.2 g/dL (33.0-37.0) 09/15/23 05:26
RDW 16.2 % (11.5-14.5) H 09/15/23 05:26
Plt Count 156 10^3/uL (130-400) 09/15/23 05:26
Plt Count Comment Yes 09/13/23 05:08
MPV 9.8 fL (7.4-10.4) 09/15/23 05:26
Abs Immat Gran (auto) 0.3 10^3/uL (0-0.05) H 09/15/23 05:26
Absolute Neuts (auto) 8.0 10^3/uL (1.4-6.5) H 09/15/23 05:26
Absolute Lymphs (auto) 1.8 10^3/uL (1.2-3.4) 09/15/23 05:26
Absolute Monos (auto) 0.6 10^3/uL (0.1-0.6) 09/15/23 05:26
Absolute Eos (auto) 0.1 10^3/uL (0-0.7) 09/15/23 05:26
Absolute Basos (auto) 0.0 10^3/uL (0-0.2) 09/15/23 05:26
CBC Comment 09/12/23 09:13
Total Counted 100 09/13/23 05:08
Immature Gran % 2.5 % (0-0.5) H 09/15/23 05:26
Neutrophils % 74.2 % (42.2-75.2) 09/15/23 05:26
Lymphocytes % 16.6 % (20.5-51.1) L 09/15/23 05:26
Monocytes % 5.3 % (1.7-9.3) 09/15/23 05:26
Eosinophils % 1.1 % (0-6) 09/15/23 05:26
Basophils % 0.3 % (0-2) 09/15/23 05:26
Nucleated RBC % 0 % (-) 09/15/23 05:26
Abs Neuts (Manual) 10.1 10^3/uL (1.4-6.5) H 09/13/23 05:08
Segmented Neutrophils 68 % (42-75) 09/13/23 05:08
Band Neutrophils 19 % (0-3) H 09/13/23 05:08
Lymphocytes (Manual) 8 % (20-51) L 09/13/23 05:08
Monocytes (Manual) 4 % (2-9) 09/13/23 05:08
Metamyelocytes 1 % (-) 09/13/23 05:08
Toxic Granulation 1+ 09/13/23 05:08
Normal RBC Morphology Yes 09/13/23 05:08
Sodium 132 mmol/L (135-145) L 09/15/23 05:26
Potassium 4.0 mmol/L (3.5-5.1) 09/15/23 05:26
Chloride 103 mmol/L (98-107) 09/15/23 05:26
Carbon Dioxide 30 mmol/L (22-30) 09/15/23 05:26
BUN 27 mg/dl (9-20) H 09/15/23 05:26
Creatinine 0.8 mg/dL (0.7-1.3) 09/15/23 05:26
Estimated Creat Clear 85 ml/min 09/15/23 05:26
eGFR > 60.00 09/15/23 05:26
Glucose 85 mg/dl (70-99) 09/15/23 05:26
Calcium 8.1 mg/dl (8.4-10.2) L 09/15/23 05:26
Total Bilirubin 1.1 mg/dl (0.2-1.3) 09/12/23 09:13
AST 50 U/L (17-59) 09/12/23 09:13
ALT 81 U/L (0-50) H 09/12/23 09:13
Alkaline Phosphatase 108 U/L (38-126) 09/12/23 09:13
Total Protein 5.2 g/dl (6.3-8.2) L 09/12/23 09:13
Albumin 2.7 g/dl (3.5-5.0) L 09/12/23 09:13
Urine Color Yellow 09/12/23 13:10
Urine Clarity Slightly cloudy (Clear) 09/12/23 13:10
Urine pH 7.0 (5.0-9.0) 09/12/23 13:10
Ur Specific [place] 1.010 (<1.030) 09/12/23 13:10
Urine Ketones Negative (Negative) 09/12/23 13:10
Ur Occult Blood Reflex 1+ (Negative) A 09/12/23 13:10
Urine Nitrite (Reflex) Negative (Negative) 09/12/23 13:10
Urine Bilirubin Negative (Negative) 09/12/23 13:10
Urine Urobilinogen Negative (Neg - 1+) 09/12/23 13:10
Leukocyte Esterase Rfl 2+ (Negative) A 09/12/23 13:10
Urine RBC 3-6 /HPF (0-2) A 09/12/23 13:10
Urine WBC (Reflex) 30-40 /HPF (0-5) A 09/12/23 13:10
Urine Bacteria (Reflex) Many (Negative) A 09/12/23 13:10
Urine Glucose Negative (Negative) 09/12/23 13:10
Urine Albumin (Reflex) Negative (Neg - Trace) 09/12/23 13:10
SARS-CoV-2 Antigen Negative (Negative) 09/12/23 09:50
Diagnostic Results: as per HPI
Assessment Patient is a 77 year old Male with PMH (of ASCVD, hypertension and recent L hip fracture / repair, CKD 3, GERD, Celiac Disease, Cholelithiasis, Lumbar DDD) with LE weakness and inability to walk. Patient underwent left ORIF on 07/03/23.
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 Some mild improvements with steroids/IVIG. Diagnosed sepsis/UTI from Klebsiella bacteremia. He was placed on multiple antibiotics and was recently switched
from IV Levaquin to p.o. for an additional 7 days.
Plan
PT/OT to increase independence with ADLs, improve balance, coordination, endurance, strength, mobility, community reintegration, decreased burden of care on others and family education
Sepsis/UTI: Klebsiella bacteremia. Suspected complicated urinary tract infection. Blood cultures and urine cultures reveal presence of Klebsiella aerogenes. Transitioned to Levaquin 500 mg p.o. daily for an additional 7 days of therapy until September
10. (Vanco discontinued. Cefepime discontinued)
Left Hip Fracture s/p ORIF 07/03/2023 - Stable--LLE edema--Still with significant edema in the LLE compared to the Right Lower extremity. US this admission actually showed RIGHT DVT of the posterior tibial vein--Completed empiric Eliquis 10 mg BID x7
days, then 5 mg BID for 3 months--Dr. Liu Informed to repeat LE US in 4 weeks after discharge to evaluate DVT--PT / OT as noted above.
Ambulatory Dysfunction/Inflammatory myopathy. 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 Some mild improvements with steroids/IVIG. Statin induced is possible but
also could be a polymyositis or other antibody mediated myopathy. Lack of distal weakness makes inclusion body myositis and no characteristic rash of dermatomyositis. Patient has no personal history of malignancy.
Cont prednisone 60 mg x 3 more weeks (until September 12), then 50 mg until further directed by the logistic manager.
OP neurology follow-up to ascertain if can be weaned from steroids.
Stop statin. Stop crestor.
Possible Polymyalgia Rheumatica- on prednisone
Mild Dysphagia: Continue with soft and bite-size diet
Leukocytopenia: resolved
UTI: Klebsiella bacteremia. Suspected complicated urinary tract infection. Blood cultures and urine cultures reveal presence of Klebsiella aerogenes. Will transition to Levaquin 500 mg p.o. daily for an additional 7 days of therapy.
ASCVD- Stable---Continue current med regimen including ASA 81mg qd,.
Chronic Cholelithiasis / Choledocholithiasis--Seen on imaging as early as April 2023--Known to GI with plans for outpatient follow-up / eventual ERCP/EUS--Has / has had no symptoms of abdominal pain, N/V, etc--Follow for any changes.
CKD III- Stable--Renal function at baseline, with Cr at 0.7 . (08/22) bun 45 to 47, creatinine 0.7
Acute DEEP VENOUS THROMBOSIS in the RIGHT POSTERIOR TIBIAL VEIN-- Eliquis 5mg bid x 3 months. Ultrasound to be repeated OP in 4 weeks by PCP
Bilateral lower extremity edema: Thigh-high teds LLE.
HTN: Carvedilol 3.125 twice daily, monitor closely
Chronic thrombocytopenia: likely exacerbated by sepsis
Anemia: Likely multifactorial.�Hemoglobin down tolerated to severe IV fluid/dilutional
Psych: Psychology consult.� Monitor mood, Lexapro 10mg qd
Skin: monitor for pressure sores/rashes/lesions.
Pain: acetaminophen as needed.
FEN: Moderate malnutrition in the context of social circumstances. To consider dietary consult. Regular solids and thin liquids
Bowel: Fleet enema, milk of Magnesium, Senokot-S, Miralax.
Bladder: Time void, PVRs, PRN straight cath.
GI Prophylaxis: Protonix 40 mg daily
Pulmonary: Incentive spirometry
Safety: Continue to reinforce assistance with all transfers.
Code Status:� Full code
Dispo (date/plan/equipment needs): Home with family care.� Social history reviewed.
Functional and Medical Goals: Modified Independent with ADL�s, ambulation, transfers
Discharge Destination: Acute inpatient Rehabilitation
Summary of recommendations: Would benefit from PT/OT in an acute inpatient rehabilitation to improve endurance, strength, coordination. Currently functional with Bed mobility�max assist, transfer sit to stand�mod assist,ambulates 12 feet with
rolling walker with min assist x 1 progressing to mod assist and then max assist at the becomes fatigued during turns
Sepsis/UTI: Klebsiella bacteremia. Suspected complicated urinary tract infection. Blood cultures and urine cultures reveal presence of Klebsiella aerogenes. Transitioned to Levaquin 500 mg p.o. daily for an additional 7 days of therapy until September
10. (Vanco discontinued. Cefepime discontinued)
Left Hip Fracture s/p ORIF 07/03/2023 - Stable--LLE edema--Still with significant edema in the LLE compared to the Right Lower extremity. US this admission actually showed RIGHT DVT of the posterior tibial vein--Eliquis 5 mg BID for 3 months--.
Alexa Informed to repeat LE US in 4 weeks after discharge to evaluate DVT--PT / OT as noted above. Repeat Ultrasound not done. Was scheduled for study prior to transfer.
Ambulatory Dysfunction/Inflammatory myopathy. 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 Some mild improvements with steroids/IVIG. Statin induced is possible but
also could be a polymyositis or other antibody mediated myopathy. Lack of distal weakness makes inclusion body myositis and no characteristic rash of dermatomyositis. Patient has no personal history of malignancy.
- Prednisone 60mg p.o. x 3 weeks then was to be tapered to 50g daiyl until OP follow-up with neurology to ascertain if can be weaned from steroids.
CKD III- Stable--Renal function at baseline, with Cr at 0.7 . Renal U/S Unremarkable sonographic appearance of the kidneys bilaterally, no findings to suggest bilateral renal collecting system dilatation.
Acute DEEP VENOUS THROMBOSIS in the RIGHT POSTERIOR TIBIAL VEIN--Eliquis 5mg bid x 3 months
Bilateral lower extremity edema: Thigh-high teds bilaterally.
Anemia: Likely multifactorial.� Continue to monitor.
Bowel: Colace and Senna, PRN bisacodyl.
Bladder: Time void, PVRs, PRN straight cath.
Thank you for allowing me to care for your patient. Please contact me with any questions or concerns.

Documented by User: Torrey Arias MD 09/15/23 19:17
Consultation - Medical
-
Referral: Louis Spence
Chief Complaint: Weakness, Deconditioning
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
myositis or toxic/necrotic myopathy) who was in [facility] for debility and weakness when he became unresponsive On 09/12/2023, and was sent to [facility]. Found to have sepsis/UTI: Klebsiella bacteremia. Blood cultures and
urine cultures reveal presence of Klebsiella aerogenes. Transitioned to Levaquin 500 mg p.o. daily for an additional 7 days of therapy until September 21. (Vanco discontinued. Cefepime discontinued)
Past Medical History: ASCVD, hypertension and recent L hip fracture / repair, CKD3 GERD, Celiac disease, Lumbar DDD, Cholelithiasis
Procedure History: Left hip ORIF 06/2023, Left Iliac Vein Stenting, Hernia Repairs, Cataracts, Eye Surgery (in childhood)
Family History: Heart disease
Social History:
Functional Level Premorbidly: Independent with all activities
Functional Level Currently: Bed mobility�mod assist, transfer sit to stand�mod assist, stand to sit�mod assist, ambulates 12 feet with rolling walker with min assist x 1 progressing to mod assist and then max assist at the becomes fatigued during
turns
Tobacco: Denies
Alcohol: Denies
Drug use: Denies
Lives with: Spouse
24-hour assistance available: Yes
Number of floors: multilevel
# steps to enter: 4
# steps to second floor: Full flight
Potential First floor set up:yes
Driving: was previously until recent surgery
Occupation: retired
Allergies:
Allergy/AdvReac Type Severity Reaction Status Date / Time
gluten Allergy Unknown Verified 08/13/23 17:09
Review of Systems:
Constitutional: (x) abNormal _fatigue
Eye: (x) Normal _
Ear/Nose/Throat: (x) Normal _
Respiratory: (x) Normal _
Cardiovascular: (x) Normal _
Gastrointestinal: (x) sepsis, UTI
Genitourinary: (x) Normal _
Musculoskeletal: (x)back, weakness, s/p left hip orif
Integumentary: (x) Normal _
Neurologic: (x) Normal _
Psychiatric: (x) Normal _
Endocrine: (x) Normal _
Hematologic/Lymphatic: (x) Normal _
Allergic/Immunologic: (x) Normal _
Active Current Visit Medication List
Category Date Time Status
Acetaminophen [Tylenol] Med 09/12/23 16:44 Active
650 mg PO Q4HPRN PRN
Apixaban [Eliquis] Med 09/12/23 20:00 Active
5 mg PO BID
Aspirin Low Dose EC [Aspir Low (Enteric Coated)] Med 09/13/23 08:00 Active
81 mg PO DAILY
Bisacodyl [Dulcolax] Med 09/12/23 16:44 Active
10 mg RECTAL DAILYPRN PRN
Carvedilol [Coreg] Med 09/12/23 20:00 Active
3.125 mg PO BID
Cyanocobalamin [Vitamin B-12] Med 09/13/23 08:00 Active
1,000 mcg PO DAILY
Docusate Sodium [Colace] Med 09/12/23 20:00 Active
100 mg PO BID
Docusate W/Senna [Senokot-S] Med 09/12/23 16:44 Active
1 tablet PO BIDPRN PRN
Escitalopram Oxalate [Lexapro] Med 09/12/23 22:00 Active
10 mg PO HS
FOLic ACID [Folvite] Med 09/13/23 08:00 Active
1 mg PO DAILY
Flush (0.9% Sodium Chloride) [Flush (Nss)] Med 09/12/23 19:00 Active
See Dose Instructions IV PER PROTOCOL
LevoFLOXacin [Levaquin] Med 09/15/23 12:00 Active
500 mg PO DAILY
Magnesium Hydroxide [Milk of Magnesia] Med 09/12/23 16:44 Active
30 ml PO DAILYPRN PRN
Pantoprazole [Protonix] Med 09/13/23 08:00 Active
40 mg PO DAILY
Phosphate Enema [Fleet Phosphate Enema-Adult] Med 09/12/23 16:44 Active
118 ml RECTAL DAILYPRN PRN
Polyethylene Glycol Powder [Miralax] Med 09/12/23 16:44 Active
17 grams PO DAILYPRN PRN
Prednisone [Deltasone] Med 09/13/23 08:00 Active
60 mg PO DAILY
Vitals:
Temp Pulse Resp BP Pulse Ox
98 F 67 16 134/72 98
09/15/23 12:05 09/15/23 12:05 09/15/23 12:05 09/15/23 12:05 09/15/23 13:30
Height 6 ft
Actual Weight 82.69 kg
Body Mass Index (BMI) 24.7
Physical Exam:
General Appearance/Observation: Well-developed, well-nourished male in no apparent distress.
Pain/Comfort Assessment: Denies
Mood/Affect: Appropriate
Integumentary/Operative Site:
�� Pressure Ulcer Evaluation: absent over heels.
Eyes: Conjunctiva/Lids: normal ��� Pupils: pupils equal round and reactive to light and Accommodation
Ears/Nose/Throat: oral mucosa moist,� throat clear.������������ Lips/Teeth/Gums: normal
Neck: No muscle spasm or tenderness
Cardiovascular: Heart: regular, no murmur
Pulses: dorsalis pedis 1+ bilaterally
Respiratory: Respiratory Effort/Chest Expansion: normal ������� Auscultation: Clear to auscultation bilaterally
Gastrointestinal: abdomen not tender, no distension, normal abdominal bowel sounds
Genitourinary: No Villareal
Extremities: Edema: Moderate pitting edema of whole LLE- improved from prior, slight pitting edema in RLE Cyanosis: None Trophic changes: None
Neurology Exam:
Orientation: Alert, Oriented to self, Time, Place
Memory: Intact for immediate concerns
Repetition: Intact
Comprehension: Intact
Two step command: Intact
Naming: Intact
Cranial Nerves:
�� CNII: Pupillary light reflex: Intact��� Visual Field: Intact
�� CN III, IV, : Extraocular muscles: Intact
�� CN V: Facial Sensation at Forehead: Intact, Maxilla: Intact, Mandible: Intact
�� CN VII: Facial movement: Symmetric
�� CN VIII: Hearing: Normal
�� CN IX/X: Speech & swallow: Normal, Position of Uvula: Midline
�� CN XI: Shoulder shrug: Symmetric
�� CN XII: Tongue protrusion: Midline
Sensory:
�� Light touch: Intact in bilateral upper and lower extremities
Reflexes:
�� Biceps: 2+ bilaterally
�� Brachioradialis: 2+ bilaterally
�� Triceps: 2+ bilaterally
�� Patellar: absent bilaterally
�� Achilles:absent bilaterally
�� Babinski: Down going bilaterally
�� Cecilio: Negative bilaterally
Cerebellar: Dysmetria/Ataxia: not tested.
Musculoskeletal: Motor: (Manual muscle scale 0-5)
Muscle SA EF WE EE FF FA HF KE DF EHL PF
Right� 1 4 4 3 3 3 1+ 2 5 5 5
Left 1 4 4 3 3 3 1 2 3- 1 3
Tone: Normal in all extremities
Range of Motion: Passively within normal limits in all extremities
Lab Results
Labs
WBC 10.7 10^3/uL (4.8-10.8) 09/15/23 05:26
RBC 3.26 10^6/uL (4.70-6.10) L 09/15/23 05:26
Hgb 11.0 g/dL (13.0-18.0) L 09/15/23 05:26
Hct 33.1 % (39.0-52.0) L 09/15/23 05:26
MCV 101.5 fL (80.0-94.0) H 09/15/23 05:26
MCH 33.7 pg (27.0-31.0) H 09/15/23 05:26
MCHC 33.2 g/dL (33.0-37.0) 09/15/23 05:26
RDW 16.2 % (11.5-14.5) H 09/15/23 05:26
Plt Count 156 10^3/uL (130-400) 09/15/23 05:26
Plt Count Comment Yes 09/13/23 05:08
MPV 9.8 fL (7.4-10.4) 09/15/23 05:26
Abs Immat Gran (auto) 0.3 10^3/uL (0-0.05) H 09/15/23 05:26
Absolute Neuts (auto) 8.0 10^3/uL (1.4-6.5) H 09/15/23 05:26
Absolute Lymphs (auto) 1.8 10^3/uL (1.2-3.4) 09/15/23 05:26
Absolute Monos (auto) 0.6 10^3/uL (0.1-0.6) 09/15/23 05:26
Absolute Eos (auto) 0.1 10^3/uL (0-0.7) 09/15/23 05:26
Absolute Basos (auto) 0.0 10^3/uL (0-0.2) 09/15/23 05:26
CBC Comment 09/12/23 09:13
Total Counted 100 09/13/23 05:08
Immature Gran % 2.5 % (0-0.5) H 09/15/23 05:26
Neutrophils % 74.2 % (42.2-75.2) 09/15/23 05:26
Lymphocytes % 16.6 % (20.5-51.1) L 09/15/23 05:26
Monocytes % 5.3 % (1.7-9.3) 09/15/23 05:26
Eosinophils % 1.1 % (0-6) 09/15/23 05:26
Basophils % 0.3 % (0-2) 09/15/23 05:26
Nucleated RBC % 0 % (-) 09/15/23 05:26
Abs Neuts (Manual) 10.1 10^3/uL (1.4-6.5) H 09/13/23 05:08
Segmented Neutrophils 68 % (42-75) 09/13/23 05:08
Band Neutrophils 19 % (0-3) H 09/13/23 05:08
Lymphocytes (Manual) 8 % (20-51) L 09/13/23 05:08
Monocytes (Manual) 4 % (2-9) 09/13/23 05:08
Metamyelocytes 1 % (-) 09/13/23 05:08
Toxic Granulation 1+ 09/13/23 05:08
Normal RBC Morphology Yes 09/13/23 05:08
Sodium 132 mmol/L (135-145) L 09/15/23 05:26
Potassium 4.0 mmol/L (3.5-5.1) 09/15/23 05:26
Chloride 103 mmol/L (98-107) 09/15/23 05:26
Carbon Dioxide 30 mmol/L (22-30) 09/15/23 05:26
BUN 27 mg/dl (9-20) H 09/15/23 05:26
Creatinine 0.8 mg/dL (0.7-1.3) 09/15/23 05:26
Estimated Creat Clear 85 ml/min 09/15/23 05:26
eGFR > 60.00 09/15/23 05:26
Glucose 85 mg/dl (70-99) 09/15/23 05:26
Calcium 8.1 mg/dl (8.4-10.2) L 09/15/23 05:26
Total Bilirubin 1.1 mg/dl (0.2-1.3) 09/12/23 09:13
AST 50 U/L (17-59) 09/12/23 09:13
ALT 81 U/L (0-50) H 09/12/23 09:13
Alkaline Phosphatase 108 U/L (38-126) 09/12/23 09:13
Total Protein 5.2 g/dl (6.3-8.2) L 09/12/23 09:13
Albumin 2.7 g/dl (3.5-5.0) L 09/12/23 09:13
Urine Color Yellow 09/12/23 13:10
Urine Clarity Slightly cloudy (Clear) 09/12/23 13:10
Urine pH 7.0 (5.0-9.0) 09/12/23 13:10
Ur Specific [place] 1.010 (<1.030) 09/12/23 13:10
Urine Ketones Negative (Negative) 09/12/23 13:10
Ur Occult Blood Reflex 1+ (Negative) A 09/12/23 13:10
Urine Nitrite (Reflex) Negative (Negative) 09/12/23 13:10
Urine Bilirubin Negative (Negative) 09/12/23 13:10
Urine Urobilinogen Negative (Neg - 1+) 09/12/23 13:10
Leukocyte Esterase Rfl 2+ (Negative) A 09/12/23 13:10
Urine RBC 3-6 /HPF (0-2) A 09/12/23 13:10
Urine WBC (Reflex) 30-40 /HPF (0-5) A 09/12/23 13:10
Urine Bacteria (Reflex) Many (Negative) A 09/12/23 13:10
Urine Glucose Negative (Negative) 09/12/23 13:10
Urine Albumin (Reflex) Negative (Neg - Trace) 09/12/23 13:10
SARS-CoV-2 Antigen Negative (Negative) 09/12/23 09:50
Diagnostic Results: as per HPI
Assessment Patient is a 77 year old Male with PMH (of ASCVD, hypertension and recent L hip fracture / repair, CKD 3, GERD, Celiac Disease, Cholelithiasis, Lumbar DDD) with LE weakness and inability to walk. Patient underwent left ORIF on 07/03/23.
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 Some mild improvements with steroids/IVIG. Diagnosed sepsis/UTI from Klebsiella bacteremia. He was placed on multiple antibiotics and was recently switched
from IV Levaquin to p.o. for an additional 7 days.
Plan
PT/OT to increase independence with ADLs, improve balance, coordination, endurance, strength, mobility, community reintegration, decreased burden of care on others and family education
Sepsis/UTI: Klebsiella bacteremia. Suspected complicated urinary tract infection. Blood cultures and urine cultures reveal presence of Klebsiella aerogenes. Transitioned to Levaquin 500 mg p.o. daily for an additional 7 days of therapy until September
10. (Vanco discontinued. Cefepime discontinued)
Left Hip Fracture s/p ORIF 07/03/2023 - Stable--LLE edema--Still with significant edema in the LLE compared to the Right Lower extremity. US this admission actually showed RIGHT DVT of the posterior tibial vein--Completed empiric Eliquis 10 mg BID x7
days, then 5 mg BID for 3 months--Dr. Liu Informed to repeat LE US in 4 weeks after discharge to evaluate DVT--PT / OT as noted above.
Ambulatory Dysfunction/Inflammatory myopathy. 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 Some mild improvements with steroids/IVIG. Statin induced is possible but
also could be a polymyositis or other antibody mediated myopathy. Lack of distal weakness makes inclusion body myositis and no characteristic rash of dermatomyositis. Patient has no personal history of malignancy.
Cont prednisone 60 mg x 3 more weeks (until September 12), then 50 mg until further directed by the logistic manager.
OP neurology follow-up to ascertain if can be weaned from steroids.
Stop statin. Stop crestor.
Possible Polymyalgia Rheumatica- on prednisone
Mild Dysphagia: Continue with soft and bite-size diet
Leukocytopenia: resolved
UTI: Klebsiella bacteremia. Suspected complicated urinary tract infection. Blood cultures and urine cultures reveal presence of Klebsiella aerogenes. Will transition to Levaquin 500 mg p.o. daily for an additional 7 days of therapy.
ASCVD- Stable---Continue current med regimen including ASA 81mg qd,.
Chronic Cholelithiasis / Choledocholithiasis--Seen on imaging as early as April 2023--Known to GI with plans for outpatient follow-up / eventual ERCP/EUS--Has / has had no symptoms of abdominal pain, N/V, etc--Follow for any changes.
CKD III- Stable--Renal function at baseline, with Cr at 0.7 . (08/22) bun 45 to 47, creatinine 0.7
Acute DEEP VENOUS THROMBOSIS in the RIGHT POSTERIOR TIBIAL VEIN-- Eliquis 5mg bid x 3 months. Ultrasound to be repeated OP in 4 weeks by PCP
Bilateral lower extremity edema: Thigh-high teds LLE.
HTN: Carvedilol 3.125 twice daily, monitor closely
Chronic thrombocytopenia: likely exacerbated by sepsis
Anemia: Likely multifactorial.�Hemoglobin down tolerated to severe IV fluid/dilutional
Psych: Psychology consult.� Monitor mood, Lexapro 10mg qd
Skin: monitor for pressure sores/rashes/lesions.
Pain: acetaminophen as needed.
FEN: Moderate malnutrition in the context of social circumstances. To consider dietary consult. Regular solids and thin liquids
Bowel: Fleet enema, milk of Magnesium, Senokot-S, Miralax.
Bladder: Time void, PVRs, PRN straight cath.
GI Prophylaxis: Protonix 40 mg daily
Pulmonary: Incentive spirometry
Safety: Continue to reinforce assistance with all transfers.
Code Status:� Full code
Dispo (date/plan/equipment needs): Home with family care.� Social history reviewed.
Functional and Medical Goals: Modified Independent with ADL�s, ambulation, transfers
Discharge Destination: Acute inpatient Rehabilitation
Summary of recommendations: Would benefit from PT/OT in an acute inpatient rehabilitation to improve endurance, strength, coordination. Currently functional with Bed mobility�max assist, transfer sit to stand�mod assist, ambulates 12 feet with
rolling walker with min assist x 1 progressing to mod assist and then max assist at the becomes fatigued during turns
Sepsis/UTI: Klebsiella bacteremia. Suspected complicated urinary tract infection. Blood cultures and urine cultures reveal presence of Klebsiella aerogenes. Transitioned to Levaquin 500 mg p.o. daily for an additional 7 days of therapy until September
10. (Vanco discontinued. Cefepime discontinued)
Left Hip Fracture s/p ORIF 07/03/2023 - Stable--LLE edema--Still with significant edema in the LLE compared to the Right Lower extremity. US this admission actually showed RIGHT DVT of the posterior tibial vein--Eliquis 5 mg BID for 3 months--.
Alexa Informed to repeat LE US in 4 weeks after discharge to evaluate DVT--PT / OT as noted above. Repeat Ultrasound not done. Was scheduled for study prior to transfer.
Ambulatory Dysfunction/Inflammatory myopathy. 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 Some mild improvements with steroids/IVIG. Statin induced is possible but
also could be a polymyositis or other antibody mediated myopathy. Lack of distal weakness makes inclusion body myositis and no characteristic rash of dermatomyositis. Patient has no personal history of malignancy.
- Prednisone 60mg p.o. x 3 weeks then was to be tapered to 50g daily until OP follow-up with neurology to ascertain if can be weaned from steroids.
CKD III- Stable--Renal function at baseline, with Cr at 0.7 . Renal U/S Unremarkable sonographic appearance of the kidneys bilaterally, no findings to suggest bilateral renal collecting system dilatation.
Acute DEEP VENOUS THROMBOSIS in the RIGHT POSTERIOR TIBIAL VEIN--Eliquis 5mg bid x 3 months
Bilateral lower extremity edema: Thigh-high teds bilaterally.
Anemia: Likely multifactorial.� Continue to monitor.
Attending Statement:
I saw and examined the patient today. Reviewed care plan with patient, therapy, nursing, and physician medical assistant dermatology. I agree with the above subjective and physical exam, and plan as documented by BARBARA Pimentel with adjustments made as necessary.
Patient feeling better, reviewed care plan with patient and .
A total of 60 minutes were spent with the patient preparing for the evaluation, obtaining history, performing examination and evaluation, counseling, data review, case management, care coordination, order picker/assembler, and EMR documentation.
Thank you for allowing me to care for your patient. Please contact me with any questions or concerns.
[2023-09-15 15:49] VITALS: BP 130/71
[2023-09-15] MEDS: COLACE 100 MG PO (21:09)
[2023-09-15] MEDS: LEXAPRO 10 MG PO (21:09)
[2023-09-15 23:15] VITALS: BP 116/65
[2023-09-16 05:28] LABS: % Basophils 0.4 % (0-2); % Eosinophils 1.5 % (0-6); % Immature Granulocytes 3.7 % (0-0.5); % Lymphocytes 18.3 % (20.5-51.1); % Monocytes 5.8 % (1.7-9.3); % Neutrophils 70.3 % (42.2-75.2); Absolute Eosinophils 0.1 10^3/uL (0-0.7); Absolute Immature Granulocytes 0.4 10^3/uL (0-0.05); Absolute Lymphocytes 1.8 10^3/uL (1.2-3.4); Absolute Monocytes 0.6 10^3/uL (0.1-0.6); Absolute Neutrophils 6.7 10^3/uL (1.4-6.5); Hematocrit 33.7 % (39.0-52.0); Hemoglobin 11.4 g/dL (13.0-18.0); Mean Corp Hgb Conc. 33.8 g/dL (33.0-37.0); Mean Corpuscular Hgb 33.9 pg (27.0-31.0); Mean Corpuscular Volume 100.3 fL (80.0-94.0); Mean Platelet Volume 9.7 fL (7.4-10.4); Nucleated Red Blood Cells % 0 % (-); Platelet Count 162 10^3/uL (130-400); Red Blood Cell Count 3.36 10^6/uL (4.70-6.10); Red Cell Dist. Width 15.9 % (11.5-14.5); White Blood Cell Count 9.6 10^3/uL (4.8-10.8)
[2023-09-16 05:59] LABS: Blood Urea Nitrogen 27 mg/dl (9-20); Calcium 8.5 mg/dl (8.4-10.2); Carbon Dioxide 29 mmol/L (22-30); Chloride 101 mmol/L (98-107); Estimated Creatinine Clearance 97 ml/min; Glucose 83 mg/dl (70-99); Potassium 4.3 mmol/L (3.5-5.1); Sodium 133 mmol/L (135-145); eGFR > 60.00
[2023-09-16] MEDS: TYLENOL 650 MG PO (06:23)
[2023-09-16 07:55] VITALS: BP 148/81
--- NOTE | 2023-09-16 09:44 | CM ---
CM following re: d/c planning.
Discussed with med team, reviewed PM&R.
Recs for acute rehab at this time.
Pt/family on board for [facility].
Referral sent to [facility] and CM reached out to admissions.
[facility] is closed today, will anticipate transfer tomorrow, pending beds.
Goal: transfer to [facility] @ d/c.
[2023-09-16] MEDS: DELTASONE 60 MG PO (09:54)
[2023-09-16] MEDS: FOLVITE 1 MG PO (09:54)
[2023-09-16] MEDS: COREG 3.125 MG PO ×2 (09:55→20:28)
[2023-09-16] MEDS: LEVAQUIN 500 MG PO (09:55)
[2023-09-16] MEDS: ELIQUIS 5 MG PO ×2 (09:55→20:28)
[2023-09-16] MEDS: COLACE 100 MG PO ×2 (09:55→20:28)
[2023-09-16] MEDS: ASPIR LOW (ENTERIC COATED) 81 MG PO (09:55)
[2023-09-16] MEDS: PROTONIX 40 MG PO (09:56)
[2023-09-16] MEDS: VITAMIN B-12 1000 MCG PO (09:56)
--- NOTE | 2023-09-16 11:29 | W.PN.HOSP.TC ---
Today's Communication/Plan
-
prednisone 50mg tomm
po abx
await rehab placement
Assessment / Plan
Assessment / Plan
Gen: NAD, AAOx3, appears chronically ill.
Eyes: EOMI, no scleral icterus.
Neck: supple.
CV: RRR, +S1/S2, no m/r/g.
Resp: CTAB, no rales, wheezes, or rhonchi.
Abd: +BS, soft, NT, ND
Skin: Ecchymoses noted on the arms, no rashes, 2+ bilateral lower extremity edema
Neuro: CN 2-12 intact, non-focal.
Psych: Normal mood and affect.
#Sepsis secondary to klebsiella bacteremia and klebsiella UTI
#History of frequent UTIs
Blood pressure started to stabilize
DC IVF
Vanco discontinued. Cefepime discontinued
Started on meropenem by infectious disease and now on levaquin till 09/21. off meropenem
Check renal bladder ultrasound-negative for hydro/obstruction
Repeat surveillance cultures in lab 09/12-neg so far
ID recs
Chronic thrombocytopenia likely exacerbated due to sepsis
Hemoglobin down tolerated to severe IV fluid/dilutional
Neutropenia resolved likely secondary to sepsis
Trend CBC
Dysphagia
speech eval
Hypokalemia
replete/monitor
Chronic Hyponatremia
Na improved
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
Recent diagnosis of possible polymyalgia rheumatica: cont Prednisone 60mg daily was suppose to be on it for 4 week then transition to 50mg daily per neuro noted. OP Rheum eval.
Mild dysphagia (soft and bite-size diet)
Left Hip Fracture status post ORIF 07/03/2023 with left leg edema
Chronic Cholelithiasis / Choledocholithiasis
Moderate Malnutrition in the context of social circumstances
CKD3
FULL/Eliquis
PT/OT -acute rehab. Seen PM&R. CM aware. Await dispo to Acute rehab.
update spouse over the phone in details on 09/13.
Anticipated Discharge: Within 24 hours
Subjective/Interval History
-
Date of Service: September 16, 2023
feeling a lot better
eating breakfast
Objective Data
-
Labs:
Laboratory Results
09/16/23
05:10
WBC 9.6
Hgb 11.4 L
Hct 33.7 L
Plt Count 162
Sodium 133 L
Potassium 4.3
Chloride 101
Carbon Dioxide 29
BUN 27 H
Creatinine 0.7
Glucose 83
Calcium 8.5
Vital Signs:
Vital Signs
Temp Pulse Resp BP Pulse Ox
97.6 F 70 16 148/81 99
09/16/23 07:55 09/16/23 07:55 09/16/23 07:55 09/16/23 07:55 09/16/23 07:55
I&O
09/15/23 09/16/23 09/17/23
06:59 06:59 06:59
Intake Total 1970 / 1970 1960 / 1959
Output Total 1375 / 1375 3880 / 3880
Balance 595 / 595 -1919 / -1919
[2023-09-16 12:00] VITALS: BP 130/70; BP 134/70; PULSE 83; PULSE 87
[2023-09-16 15:54] VITALS: BP 124/69
[2023-09-16 20:00] VITALS: BP 128/74; BP 140/76; PULSE 86; PULSE 89
[2023-09-16] MEDS: LEXAPRO 10 MG PO (20:28)
[2023-09-16] MEDS: SENOKOT-S 1 TABLET PO (21:01)
[2023-09-16] MEDS: MIRALAX 17 GRAMS PO (21:02)
[2023-09-16 23:51] VITALS: BP 139/71
[2023-09-17 07:00] VITALS: BP 150/78
[2023-09-17] MEDS: ASPIR LOW (ENTERIC COATED) 81 MG PO (07:51)
[2023-09-17] MEDS: COREG 3.125 MG PO (07:55)
[2023-09-17] MEDS: ELIQUIS 5 MG PO (07:55)
[2023-09-17] MEDS: PROTONIX 40 MG PO (07:55)
[2023-09-17] MEDS: DELTASONE 50 MG PO (07:55)
[2023-09-17] MEDS: VITAMIN B-12 1000 MCG PO (07:55)
[2023-09-17] MEDS: FOLVITE 1 MG PO (07:55)
[2023-09-17] MEDS: LEVAQUIN 500 MG PO (07:55)
[2023-09-17] MEDS: COLACE 100 MG PO (07:55)
--- NOTE | 2023-09-17 10:20 | W.PN.ID1 ---
Date of Service
Date of Service: September 17, 2023
Today's Communication
Sign off.
Assessment / Plan
Klebsiella bacteremia
Suspected complicated urinary tract infection
Leukocytosis (prior leukopenia)
Hx chills
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
CAD
Hx CVA (2018)
GERD
HTN
Dyslipidemia
Hx CKD stage III
Cholelithiasis
Hx UTI
Suspected PMR
Suspected myasthenia gravis
Recommendations:
Renal ultrasound without obstructive uropathy.
Blood cultures and urine cultures reveal presence of Klebsiella aerogenes.
Continue Levaquin 500 mg p.o. daily for an additional 4 days of therapy (through 09/21/23)
Little more to offer from a Infectious Diseases standpoint at the present time.
Will see again at your request.
����������������������������������������������������������
Chief Complaint
-: UTI and Bacteremia
Subjective / Review of Systems
Review of Systems: No Fever, No Chills and No Dysuria
Vital Signs / Physical Exam
Vital Signs
Vital Signs
Temp Pulse Resp BP Pulse Ox
97.6 F 69 18 150/78 99
09/17/23 07:00 09/17/23 07:00 09/17/23 07:00 09/17/23 07:00 09/17/23 07:00
Physical Exam
Constitutional: No Acute Distress, Comfortable, Chronically Ill and Non-toxic
Eyes: No Conjunctival Hemorrhage
Cardiovascular: S1/S2; Negative S3/S4
Pulmonary: Non Labored
Gastrointestinal: Soft, Non Tender and Non Distended
Extremities: Edema (3+ LE edema)
Skin: Negative Rash or Jaundice
Neurological: Awake and Alert
Psychological: Calm
Objective Data
Lab Data
Lab Results
09/16/23 05:10
09/16/23 05:10
Estimated Creat Clear 97 ml/min 09/16/23 05:10
Total Bilirubin 1.1 mg/dl (0.2-1.3) 09/12/23 09:13
AST 50 U/L (17-59) 09/12/23 09:13
ALT 81 U/L (0-50) H 09/12/23 09:13
Alkaline Phosphatase 108 U/L (38-126) 09/12/23 09:13
Most recent labs reviewed.
Micro Results:
09/13/23 13:20 Blood Culture - Preliminary
Blood/Venous No Growth in 72 hours- Final report to follow
09/13/23 11:56 Blood Culture - Preliminary
Blood/Venous No Growth in 72 hours- Final report to follow
09/12/23 13:42 Blood Culture - Preliminary
Blood/Venous Klebsiella aerogenes
Gram Stain - Preliminary
09/12/23 13:42 Blood Culture - Final
Blood/Venous Klebsiella aerogenes
Gram Stain - Final
09/12/23 13:10 Urine Culture - Final
Urine Klebsiella aerogenes
asdf
Blood Culture Preliminary 09/12/2023
Organism 1 Klebsiella aerogenes
1. Klebsiella aerogenes (previously Enterobacter aerogenes)
M.I.C. RX
--------- ---
Amoxicillin/Potas. Clavulanate >16/8 R
Ampicillin >16 R
Ampicillin/Sulbactam <=8/4 R
Cefazolin >16 R
Cefepime <=2 S
Ceftazidime <=1 S
Ceftriaxone <=1 S
Ertapenem <=0.5 S
Ciprofloxacin <=0.25 S
Gentamicin <=4 S
Levofloxacin <=0.5 S
Meropenem <=1 S
Piperacillin/Tazobactam <=16 S
Tobramycin <=4 S
Trimethoprim/Sulfamethoxazole <=2/38 S
Imaging:
09/12/2023 CXR (2 view): There is no parenchymal opacification or vascular congestion noted. Cardiomediastinal silhouettes are within limits of normal.
--- NOTE | 2023-09-17 10:52 | W.PN.HOSP.TC ---
Today's Communication/Plan
-
to rivero
po abx
Assessment / Plan
Assessment / Plan
Gen: NAD, AAOx3, appears chronically ill.
Eyes: EOMI, no scleral icterus.
Neck: supple.
CV: RRR, +S1/S2, no m/r/g.
Resp: CTAB, no rales, wheezes, or rhonchi.
Abd: +BS, soft, NT, ND
Skin: Ecchymoses noted on the arms, no rashes, 1+ bilateral lower extremity edema
Neuro: CN 2-12 intact, non-focal.
Psych: Normal mood and affect.
#Sepsis secondary to klebsiella bacteremia and klebsiella UTI
#History of frequent UTIs
Blood pressure stabilized
DC IVF
Vanco discontinued. Cefepime discontinued
Started on meropenem by infectious disease and now on po levaquin for 4 more days.
Check renal bladder ultrasound-negative for hydro/obstruction
Repeat surveillance cultures in lab 09/12-remains neg so far
ID recs
Chronic thrombocytopenia likely exacerbated due to sepsis
Hemoglobin down tolerated to severe IV fluid/dilutional
Neutropenia resolved likely secondary to sepsis
Trend CBC
Dysphagia
tolerating regular
Hypokalemia
replete/monitor
Chronic Hyponatremia
Na improved
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
Recent diagnosis of possible polymyalgia rheumatica:
cont Prednisone 60mg daily was suppose to be on it for 4 week then transition to 50mg daily per neuro noted. OP Rheum eval.
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
Mild dysphagia (soft and bite-size diet)
Left Hip Fracture status post ORIF 07/03/2023 with left leg edema
Chronic Cholelithiasis / Choledocholithiasis
Moderate Malnutrition in the context of social circumstances
CKD3
Primary HTN
Cont coreg and restart lasix
off norvasc due to le edema
Can add ARB or procardia if needed in future
FULL/Eliquis
PT/OT -acute rehab.
update spouse over the phone in details on 09/13.
More than 30 minutes spent in discharge including
Final examination of the patient
Summarizing hospital stay
Instructions for continuing care to all relevant caregivers
Preparation of discharge records, prescriptions, and referral forms
Total time spent (in minutes): 50
Anticipated Discharge: Today
Subjective/Interval History
-
Date of Service: September 17, 2023
feeling better
tolerating diet
afebrile
Objective Data
-
Vital Signs:
Vital Signs
Temp Pulse Resp BP Pulse Ox
97.6 F 69 18 150/78 99
09/17/23 07:00 09/17/23 07:00 09/17/23 07:00 09/17/23 07:00 09/17/23 07:00
I&O
09/16/23 09/17/23 09/18/23
06:59 06:59 06:59
Intake Total 1959 / 1959 1680 / 1680
Output Total 3880 / 3880 2980 / 2980
Balance -1920 / -1920 -1300 / -1300
[2023-09-17 10:58] VITALS: BP 104/76; BP 123/64; BP 154/62; PULSE 115; PULSE 71; PULSE 78
--- NOTE | 2023-09-17 11:01 | W.DCSUMMARY ---
Discharge Summary
Discharge Data
Date of Admission: 09/12/23
Date of Discharge: 09/17/23
-
Pending Results: No
Hospital Course
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
history of frequent UTIs, right posterior tibial vein thrombosis, primary hypertension, chronic lower extremity edema who is presenting from unresponsiveness. Patient was found to be severely hypotensive and with severe leukopenia. Patient was
started on aggressive IV fluid resuscitation leading to stabilization of blood pressure. Blood cultures and UA was obtained. Patient was started on broad-spectrum antibiotics. Patient was found to have UTI with bacteremia preliminary. Infectious
disease was consulted. Vanco and cefepime was discontinued and started on meropenem per infectious disease. Surveillance cultures was found to be negative. Found to have Klebsiella bacteremia and UTI. Renal bladder ultrasound was negative for
hydronephrosis. Patient was transition from meropenem to Levaquin which will need to be continued for additional more days on discharge. Patient blood pressure stabilized. Patient also on chronic steroids for statin induced myopathy and
polymyalgia rheumatica and supposed to be on 60 mg of prednisone for 4 weeks which ended and thus he was down titrated to 50 mg which need to be continued until outpatient rheumatology and urology evaluation. Patient was eval by PT and OT and
recommended acute rehab. Patient was evaluated by PMNR and will be discharged to [facility].
Discharge Plan
-
Patient Disposition: Acute Rehab Facility
Discharge Diagnosis/Procedures: Sepsis secondary to klebsiella bacteremia and klebsiella UTI
Condition: Fair
Diet: Low Cholesterol
Activity: With assistance and As tolerated
Driving Restrictions: Not until seen by your Dr
Activity Restrictions/Additional Instructions:
Continue prednisone 50 mg until further directed by the pcb designer and neurologist.
Referrals:
Geneva James MD [Family Provider] - in less than 1 week
Prescriptions:
New
prednisone 50 mg Tablet
50 mg PO DAILY 30 Days Qty: 30 0RF
levofloxacin 500 mg tablet
500 mg PO DAILY Qty: 4 0RF
Rx Instructions:
Continue Levaquin 500 mg p.o. daily for an additional 4 days of therapy (through 09/21/23)
Continued
acetaminophen [Tylenol] 325 mg Tablet
650 mg PO Q4HPRN PRN (Reason: MILD PAIN)
polyethylene glycol 3350 [Miralax] 17 gram Powder In Packet
17 g PO DAILYPRN PRN (Reason: CONSTIPATION)
aspirin 81 mg Tablet,Delayed Release (Dr/Ec)
81 mg PO DAILY
magnesium hydroxide [Milk of Magnesia] 400 mg/5 mL Suspension
400 mg PO DAILYPRN PRN (Reason: CONSTIPATION)
pantoprazole [Protonix] 40 mg Tablet,Delayed Release (Dr/Ec)
40 mg PO DAILY
escitalopram oxalate [Lexapro] 10 mg Tablet
10 mg PO HS
carvedilol 3.125 mg Tablet
3.125 mg PO BID Qty: 60 0RF
Eliquis 5 mg Tablet
5 mg PO BID Qty: 180 0RF
cyanocobalamin (vitamin B-12) 1,000 mcg Tablet
1,000 mcg PO DAILY Qty: 30 0RF
docusate sodium 100 mg Capsule
100 mg PO BID
folic acid 1 mg Tablet
1 mg PO DAILY
furosemide 20 mg Tablet
20 mg PO DAILY
Discontinued
Fleet Enema 19-7 gram/118 mL Enema
118 ml AR DAILYPRN PRN (Reason: CONSTIPATION)
prednisone 20 mg Tablet
60 mg PO DAILY Qty: 30 0RF
Rx Instructions:
for 3 more weeks then 50 mg daily after that
No Action
bisacodyl 10 mg Suppository
10 mg AR DAILYPRN PRN (Reason: Constipation )
Discharge Orders:
Discharge Patient (As Directed); Ordered 09/17/23
Ordered By: Louis Leon
Discharge Date and Time
Discharge Date/Time: 09/17/23 12:48
Print Language: TAJIK
[2023-09-17 11:04] VITALS: BP 104/76; BP 123/64; BP 154/62; PULSE 115; PULSE 71; PULSE 78
[2023-09-17 11:07] VITALS: BP 104/76; BP 123/64; BP 154/62; PULSE 115; PULSE 71; PULSE 78
--- NOTE | 2023-09-17 11:11 | CM ---
Case management following for d/c planning
Pt for [facility]
TT to [facility]
Requested updated PT/OT notes
Can accept today
Plan - [facility]
R - [phone]
[id number]
[2023-09-17 12:00] VITALS: BP 146/80
== END 2023-09-17 12:48 | DRG 872 ==
LOC: 3 WEST ACU 13:53
PROVIDERS: Physician Assistant Medical; ADMITTING PHYSICIAN Internal Medicine; ATTENDING PHYSICIAN Hospitalist; CONSULT PHYSICIAN Internal Medicine Infectious Disease; CONSULT PHYSICIAN Physical Medicine & Rehabilitation; EMERGENCY PHYSICIAN Emergency Medicine; FAMILY PHYSICIAN Student in an Organized Health Care Education/Training Program
DX: A41.59 Other Gram-negative sepsis (principal); N39.0 Urinary tract infection, site not specified; E44.0 Moderate protein-calorie malnutrition; D84.821 Immunodeficiency due to drugs; G72.0 Drug-induced myopathy; E87.1 Hypo-osmolality and hyponatremia; D69.59 Other secondary thrombocytopenia; N18.31 Chronic kidney disease, stage 3a; M35.3 Polymyalgia rheumatica; I12.9 Hypertensive chronic kidney disease with stage 1 through stage 4 chronic kidney disease, or unspecified chronic kidney disease; D70.3 Neutropenia due to infection; K80.70 Calculus of gallbladder and bile duct without cholecystitis without obstruction; B96.1 Klebsiella pneumoniae [K. pneumoniae] as the cause of diseases classified elsewhere; I95.1 Orthostatic hypotension; I25.10 Atherosclerotic heart disease of native coronary artery without angina pectoris; K21.9 Gastro-esophageal reflux disease without esophagitis; E78.5 Hyperlipidemia, unspecified; R13.10 Dysphagia, unspecified; T46.6X5A Adverse effect of antihyperlipidemic and antiarteriosclerotic drugs, initial encounter; Z68.24 Body mass index [BMI] 24.0-24.9, adult; Z79.01 Long term (current) use of anticoagulants; Z79.52 Long term (current) use of systemic steroids; Z79.82 Long term (current) use of aspirin; Z79.899 Other long term (current) drug therapy; Z87.81 Personal history of (healed) traumatic fracture; Z86.718 Personal history of other venous thrombosis and embolism; Z86.73 Personal history of transient ischemic attack (TIA), and cerebral infarction without residual deficits; Z87.440 Personal history of urinary (tract) infections
CPT/HCPCS: 71046; 76770; 80048; 80053; 81003; 81015; 85025; 87040; 87077; 87086; 87149; 87186; 87205; 87811; 93005; 96360; 96361; 97116; 97162; 97167; 97530; 97535; 99285

== ENCOUNTER 2023-09-18 13:57 | Observation (INO) | payer MEDICARE, OTHER, SELFPAY ==
[2023-09-18] VITALS (17 sets, daily range): BP systolic 90–150; BP diastolic 63–89; PULSE 65–111; BMI 24.7; BMI 24.6
--- NOTE | 2023-09-18 09:28 | ED.GENMED ---
History of Present Illness
General
Chief Complaint: Change Level of Consciousness
Past History
Past History
ED Past Medical History: CAD, CVA (2018), GERD, HTN, Hypercholesterolemia, Renal failure (CKD 3) and Other (Vitamin B12, vitamin D, adenomatous polyp, cholelithiasis)
ED Past Surgical History: Orthopedic (left hip ORIF 06/2023) and Other (Hernia, cataract surgery, bilateral cataract surgery, left leg stent)
Social History
Tobacco: Non-smoker
Alcohol: None
Drug: None
Personal:
Living: with family
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
Family History
Family History: Early CAD
Course
Vital Signs
Initial and Last Documented VS:
Initial Vital Signs
Temp Pulse Resp BP Pulse Ox
97.8 F 64 15 150/69 99
09/18/23 09:27 09/18/23 09:27 09/18/23 09:27 09/18/23 09:27 09/18/23 09:27
Last Documented Vital Signs
Temp Pulse Resp BP Pulse Ox
97.8 F 64 15 150/69 99
09/18/23 09:27 09/18/23 09:27 09/18/23 09:27 09/18/23 09:27 09/18/23 09:27
ED Attending Note
-
Portions of this chart may have been created with voice recognition software.� Occasional wrong word or��sound alike� substitutions may have occurred due to the inherent limitations of voice recognition software.
Discharge Plan
Departure
Prescriptions:
No Action
acetaminophen [Tylenol] 325 mg Tablet
650 mg PO Q4HPRN PRN (Reason: MILD PAIN)
polyethylene glycol 3350 [Miralax] 17 gram Powder In Packet
17 g PO DAILYPRN PRN (Reason: CONSTIPATION)
aspirin 81 mg Tablet,Delayed Release (Dr/Ec)
81 mg PO DAILY
magnesium hydroxide [Milk of Magnesia] 400 mg/5 mL Suspension
400 mg PO DAILYPRN PRN (Reason: CONSTIPATION)
pantoprazole [Protonix] 40 mg Tablet,Delayed Release (Dr/Ec)
40 mg PO DAILY
escitalopram oxalate [Lexapro] 10 mg Tablet
10 mg PO HS
carvedilol 3.125 mg Tablet
3.125 mg PO BID Qty: 60 0RF
Eliquis 5 mg Tablet
5 mg PO BID Qty: 180 0RF
cyanocobalamin (vitamin B-12) 1,000 mcg Tablet
1,000 mcg PO DAILY Qty: 30 0RF
docusate sodium 100 mg Capsule
100 mg PO BID
folic acid 1 mg Tablet
1 mg PO DAILY
furosemide 20 mg Tablet
20 mg PO DAILY
prednisone 50 mg Tablet
50 mg PO DAILY 30 Days Qty: 30 0RF
levofloxacin 500 mg tablet
500 mg PO DAILY Qty: 4 0RF
Rx Instructions:
Continue Levaquin 500 mg p.o. daily for an additional 4 days of therapy (through 09/21/23)
bisacodyl 10 mg Suppository
10 mg PA DAILYPRN PRN (Reason: Constipation )
Discharge Date and Time
Print Language: TOGOLESE
[2023-09-18 09:49] LABS: % Basophils 0.5 % (0-2); % Eosinophils 1.3 % (0-6); % Lymphocytes 12.6 % (20.5-51.1); % Monocytes 4.8 % (1.7-9.3); % Neutrophils 75.8 % (42.2-75.2); Absolute Basophils 0.1 10^3/uL (0-0.2); Absolute Eosinophils 0.1 10^3/uL (0-0.7); Absolute Immature Granulocytes 0.6 10^3/uL (0-0.05); Absolute Lymphocytes 1.4 10^3/uL (1.2-3.4); Absolute Monocytes 0.5 10^3/uL (0.1-0.6); Absolute Neutrophils 8.4 10^3/uL (1.4-6.5); Hematocrit 35.7 % (39.0-52.0); Hemoglobin 12.3 g/dL (13.0-18.0); Mean Corp Hgb Conc. 34.5 g/dL (33.0-37.0); Mean Corpuscular Hgb 34.8 pg (27.0-31.0); Mean Corpuscular Volume 101.1 fL (80.0-94.0); Mean Platelet Volume 9.8 fL (7.4-10.4); Nucleated Red Blood Cells % 0 % (-); Platelet Count 220 10^3/uL (130-400); Red Blood Cell Count 3.53 10^6/uL (4.70-6.10); Red Cell Dist. Width 16.2 % (11.5-14.5); White Blood Cell Count 11.1 10^3/uL (4.8-10.8)
[2023-09-18 10:01] LABS: Lactic Acid 2.6 mmol/L (0.7-2.0)
[2023-09-18 10:07] LABS: Urine Albumin Negative (Neg - Trace); Urine Bilirubin Negative (Negative); Urine Character Clear (Clear); Urine Color Yellow; Urine Glucose Negative (Negative); Urine Ketone Negative (Negative); Urine Leukocyte Trace (Negative); Urine Nitrite Negative (Negative); Urine Occult Blood Trace (Negative); Urine Urobilinogen Negative (Neg - 1+); Urine pH 6.5 (5.0-9.0)
--- NOTE | 2023-09-18 10:13 | ED.GENMED ---
History of Present Illness
General
Chief Complaint: Change Level of Consciousness
Time Seen by Provider: 09/18/23 09:39
History of Present Illness
History of Present Illness:
77 presents from [facility] for evaluation after multiple witnessed syncopal events that occurred during therapy sessions today. Patient recently moved to this hospital and discharged yesterday to rehab, patient was for urosepsis with Klebsiella
bacteremia most recent blood cultures remain negative and he is on levofloxacin for 4 further days. Patient states he felt well this morning before the syncopal events occurred. He had similar syncopal events prior to his most recent
hospitalization. He is currently on carvedilol Lasix as needed for fluid retention. He is also on high-dose prednisone due to polymyalgia rheumatica
Past History
Past History
ED Past Medical History: CAD, CVA (2018), GERD, HTN, Hypercholesterolemia, Renal failure (CKD 3) and Other (Vitamin B12, vitamin D, adenomatous polyp, cholelithiasis)
ED Past Surgical History: Orthopedic (left hip ORIF 06/2023) and Other (Hernia, cataract surgery, bilateral cataract surgery, left leg stent)
Social History
Tobacco: Non-smoker
Alcohol: None
Drug: None
Personal:
Living: with family
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
Family History
Family History: Early CAD
Review of Systems
Review of Systems
Allergies reviewed?: Yes
All Other Systems: ROS reviewed and negative except as documented in HPI and ROS
Phy Exam
Physical Exam
Physical Exam:
GEN: Well appearing, NAD, WDWN
HEENT: Oral mucosa moist, no scleral icterus, no nasal congestion
Cardiac: Regular rate and rhythm, no murmur
Lung: No respiratory distress, no tachypnea
MSK: No gross deformity or injuries
Skin: Good color, no pallor or jaundice, no rashes
Neuro: AO x3; CN II-XII grossly intact. BUE strength 5/5 in all [place], sensation intact and symmetric. BLE strength 5/5 in all [place], sensation intact and symmetric
Psych: Calm, cooperative
Course
Orders/Labs/Results
Orders:
Orders
09/18/23 09:39
Lactic Acid Urgent
09/18/23 09:40
CMP [Comprehensive Metabolic Panel] Urgent
Complete Blood Count/With Diff Urgent
09/18/23 09:42
Urinalysis Reflex To Culture Urgent
Date Specimen was Collected: 09/18/23
Time Specimen was Collected: 09:31
Urine Microscopic Reflex Cult Urgent
09/18/23 Lunch
Regular
At Your Request: Limited Participation
09/18/23 10:07
Orthostatic VS- Treatment ONCE
09/18/23 10:10
Electrocardiogram (*1) Urgent
Reason for Study: Other
Other Reason for Exam: loss of consciousness
09/18/23 10:11
EKG- Treatment ONCE
09/18/23 10:43
0.9% Sodium Chloride 500 ml [Nss] 500 ml IV BOLUS
09/18/23 12:32
0.9% Sodium Chloride 500 ml [Nss] 500 ml IV BOLUS
09/18/23 13:27
CT Head W/o Iv Contrast Urgent
Comment:
Reason For Exam: syncope.
09/18/23 13:34
Admit/Transfer Patient As Directed
Co-Sign Provider:
Level of Care: Observation services
Assign to:: Telemetry
Physician / Group: reed/hospitalist
Diagnosis: syncope/lactic acidosis
Reason for Telemetry: Syncope
Date to Stop Telemetry: 09/20/23
Time to Stop Telemetry: 11:00
09/18/23 13:42
Code Status As Directed
Resuscitation Status: Full Code
09/18/23 13:52
Lactic Acid Routine
09/18/23 15:01
Acetaminophen [Tylenol] 650 mg PO Q4HPRN PRN
Midodrine [ProAmatine] 5 mg PO Q4HPRN PRN
09/18/23 15:01
VTE Contraindication Routine
VTE Mechanical Device Contraindication: Edema of lower extremity
Pharmocologic Contraindication: Medical Contraindication
Comment: Already on Eliquis 5mg BID
Activity As Directed
Activity Level: Out of Bed-Early Mobility
Vital Signs As Directed
Frequency: Per unit guidelines
09/18/23 15:05
Troponin I Q6H
09/18/23 15:45
0.9% Sodium Chloride 1000 ml [Nss] 1,000 ml IV 100 mls/hr
09/18/23 20:00
Apixaban [Eliquis] 5 mg PO BID
Carvedilol [Coreg] 3.125 mg PO BID
Docusate Sodium [Colace] 100 mg PO BID
09/18/23 21:01
Troponin I Q6H
09/18/23 22:00
Escitalopram Oxalate [Lexapro] 10 mg PO HS
09/19/23 03:01
Troponin I Q6H
09/19/23 06:00
Basic Metabolic Panel IN AM
Complete Blood Count/With Diff IN AM
09/19/23 08:00
Aspirin Low Dose EC [Aspir Low (Enteric Coated)] 81 mg PO DAILY
Cyanocobalamin [Vitamin B-12] 1,000 mcg PO DAILY
FOLic ACID [Folvite] 1 mg PO DAILY
LevoFLOXacin [Levaquin] 500 mg PO DAILY
Pantoprazole [Protonix] 40 mg PO DAILY
Prednisone [Deltasone] 50 mg PO DAILY
09/19/23 12:00
Multivitamin [Theragran] 1 tablet PO DAILY@1200
09/20/23 11:00
DC Protocol for Telemetry ONCE
Abnormal Lab Results
09/18/23 09/18/23 09/18/23
09:39 09:40 09:42
WBC 11.1 H 10^3/uL
(4.8-10.8)
RBC 3.53 L 10^6/uL
(4.70-6.10)
Hgb 12.3 L g/dL
(13.0-18.0)
Hct 35.7 L %
(39.0-52.0)
MCV 101.1 H fL
(80.0-94.0)
MCH 34.8 H pg
(27.0-31.0)
RDW 16.2 H %
(11.5-14.5)
Abs Immat Gran (auto) 0.6 H 10^3/uL
(0-0.05)
Absolute Neuts (auto) 8.4 H 10^3/uL
(1.4-6.5)
Immature Gran % 5.0 H %
(0-0.5)
Neutrophils % 75.8 H %
(42.2-75.2)
Lymphocytes % 12.6 L %
(20.5-51.1)
Sodium 133 L mmol/L
(135-145)
BUN 30 H mg/dl
(9-20)
Glucose 111 H mg/dl
(70-99)
Lactic Acid 2.6 H mmol/L
(0.7-2.0)
Calcium 8.3 L mg/dl
(8.4-10.2)
ALT 65 H U/L
(0-50)
Total Protein 5.2 L g/dl
(6.3-8.2)
Albumin 2.7 L g/dl
(3.5-5.0)
Ur Occult Blood Reflex Trace A
(Negative)
Leukocyte Esterase Rfl Trace A
(Negative)
Urine Bacteria (Reflex) Few A
(Negative)
09/18/23
13:52
WBC
RBC
Hgb
Hct
MCV
MCH
RDW
Abs Immat Gran (auto)
Absolute Neuts (auto)
Immature Gran %
Neutrophils %
Lymphocytes %
Sodium
BUN
Glucose
Lactic Acid 2.4 H mmol/L
(0.7-2.0)
Calcium
ALT
Total Protein
Albumin
Ur Occult Blood Reflex
Leukocyte Esterase Rfl
Urine Bacteria (Reflex)
09/18/23 09:40
09/18/23 09:40
Vital Signs
Initial and Last Documented VS:
Initial Vital Signs
Temp Pulse Resp BP Pulse Ox
97.8 F 64 15 150/69 99
09/18/23 09:27 09/18/23 09:27 09/18/23 09:27 09/18/23 09:27 09/18/23 09:27
Last Documented Vital Signs
Temp Pulse Resp BP Pulse Ox
98.1 F 73 20 150/69 97
09/18/23 15:44 09/18/23 15:44 09/18/23 15:44 09/18/23 15:44 09/18/23 15:44
MDM/Problems Addressed
MDM/Problems Addressed:
Patient is markedly orthostatic, he is on high-dose steroids as a result of an underlying neurologic condition thus may benefit from addition of midodrine. Given his positional hemodynamic instability he is not suitable for discharge back to [facility]
rehab without further medical clearance, will admit for further gentle IV fluid resuscitation and further medication considerations
Comment
Comment:
EKG independently interpreted by me shows normal sinus rhythm at a rate of [address] changes concerning for ischemia, QTc of 413
*Critical Care Note
Total Time (30-74mins, 75-104mins- exclusive of procedures): Not Applicable
ED Attending Note
-
Portions of this chart may have been created with voice recognition software.� Occasional wrong word or��sound alike� substitutions may have occurred due to the inherent limitations of voice recognition software.
Discharge Plan
Departure
Patient Disposition: Admit
Date of Disposition: 09/18/23
Time of Disposition: 13:01
Presentation/result/management discussed w/ accepting MD/DO: Hospitalist
Discharge Problem:
Orthostatic hypotension
Interventions
Interventions:
*Risk Screen - Suicide Last Done: 09/18/23 09:29
*Neglect/Abuse Screening Last Done: 09/18/23 09:29
ED- Fall Risk Assessment Last Done: 09/18/23 09:34
*ED COVID-19 Vaccine History Last Done: 09/18/23 09:32
*Nursing Disposition Last Done: 09/18/23 15:04
ED- Cardiac Assessment Last Done: 09/18/23 10:10
ED- Neurological Assessment Last Done: 09/18/23 09:32
ED-Psychological Assessment Last Done: 09/18/23 09:32
ED- Pulmonary Assessment Last Done: 09/18/23 09:32
Discharge Date and Time
Discharge Date/Time: 09/18/23 15:04
[2023-09-18 10:22] LABS: ALT (SGPT) 65 U/L (0-50); AST (SGOT) 45 U/L (17-59); Albumin 2.7 g/dl (3.5-5.0); Alkaline Phosphatase 92 U/L (38-126); Blood Urea Nitrogen 30 mg/dl (9-20); Calcium 8.3 mg/dl (8.4-10.2); Carbon Dioxide 30 mmol/L (22-30); Chloride 99 mmol/L (98-107); Estimated Creatinine Clearance 97 ml/min; Glucose 111 mg/dl (70-99); Potassium 3.9 mmol/L (3.5-5.1); Sodium 133 mmol/L (135-145); Total Bilirubin 0.7 mg/dl (0.2-1.3); Total Protein 5.2 g/dl (6.3-8.2); eGFR > 60.00
[2023-09-18 10:24] LABS: Urine Bacteria Few (Negative); Urine Red Blood Cell 0-2 /HPF (0-2); Urine Squamous Cell 0-2 /LPF (Few)
[2023-09-18] MEDS: NSS 500 IV ×2 (10:46→12:39)
--- NOTE | 2023-09-18 10:47 | EDRN ---
Could not tolertate standing to complete BP. [place] dizzy. HR was 111- sinus tach
--- NOTE | 2023-09-18 13:07 | HPS.HSE ---
Family Physician
-
Family Physician: Geneva James MD
Chief Complaint
-
passed out
History of Present Illness
77 male extensive medical history who was recently discharged from hospital went to [facility] and was restarted on diuretics as patient is on it for chronic lower extremity edema is on steroids. Patient stated once he was restarted on Lasix he had
approximately 2 to 3 L of urinary output in the urinal. Patient states he had approximately 2-3-second episode of presyncope. Patient stated prior to the episode he did not have any chest pain or diaphoresis. Once he recovered from his syncopal
episode he said he was back to his baseline mentation. Patient said during prior to syncopal episode he could hear other nurses with talking to him. Denies any urinary or fecal incontinence. Denies any focal weakness. Denies any numbing
tingling. Denies tongue biting. Denies any chest pain prior to the episode or postevent. Denies any palpitation or shortness of breath. Patient states he feels back to baseline mentation. States he would prefer to be discharged back to [facility] soon
as possible.
Medical History
Past Medical History
Past Medical History: Reports Other
Additional Past Medical History:
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
tibial vein thrombosis, primary hypertension, chronic lower extremity edema
Past Surgical History: Reports Other
Additional Past Surgical History:
Left hip ORIF 06/2023,
Left Iliac Vein Stenting,
Hernia Repairs
Social History
Tobacco: Non-smoker
Personal:
Living: With Family
Family History
Family History: Not pertinent
Allergies / Home Medications
Allergy/Medication List:
Allergies
Allergy/AdvReac Type Severity Reaction Status Date / Time
gluten Allergy Severe Celiac Verified 07/05/24 13:03
disease
Home Medications
acetaminophen 325 mg tablet (Tylenol) 650 mg PO Q4HPRN PRN mild pain/fever 08/13/23
aspirin 81 mg tablet,delayed release 81 mg PO DAILY Blood Clot Prevention/Tx 08/13/23
escitalopram oxalate 10 mg tablet (Lexapro) 10 mg PO HS Depression 08/13/23
magnesium hydroxide 400 mg/5 mL oral suspension (Milk of Magnesia) 30 ml PO DAILYPRN PRN CONSTIPATION 08/13/23
pantoprazole 40 mg tablet,delayed release (Protonix) 40 mg PO DAILY Gastrointestinal Issue 08/13/23
apixaban 5 mg tablet (Eliquis) 5 mg PO BID #180 tabs 08/23/23
carvedilol 3.125 mg tablet 3.125 mg PO BID #60 tabs 08/23/23
cyanocobalamin (vitamin B-12) 1,000 mcg tablet 1,000 mcg PO DAILY #30 tabs 08/23/23
docusate sodium 100 mg capsule 100 mg PO BID Constipation 09/12/23
folic acid 1 mg tablet 1 mg PO DAILY Supplement 09/12/23
furosemide 20 mg tablet 20 mg PO DAILY Fluid Retention/Swelling 09/12/23
bisacodyl 10 mg rectal suppository 10 mg NH DAILYPRN PRN if no bm w/ oral 09/17/23
levofloxacin 500 mg tablet 500 mg PO DAILY #4 tabs 09/17/23
prednisone 50 mg tablet 50 mg PO DAILY 30 days #30 tabs 09/17/23
bisacodyl 5 mg tablet 10 mg PO DAILYPRN PRN constipation 09/18/23
therapeutic multivitamin 1 tab PO DAILY 09/18/23
Review of Systems
-
History Source: Patient
A 12 point ROS was completed and negative except as noted: Yes
Physical Exam
Vital Signs
Vital Signs
Temp Pulse Resp BP Pulse Ox
97.8 F 104 14 90/65 99
09/18/23 09:27 09/18/23 12:21 09/18/23 11:30 09/18/23 12:21 09/18/23 09:32
Physical Exam
General: Well Developed, Well Nourished and No Apparent Distress
HEENT: NormoCephalic, Moist mucous membranes and Atraumatic
Respiratory: Clear
Cardiac: S1/S2 and Regular Rhythm; No Murmur or Rub
GI: Soft, Non Tender, Non Distended and Normal Bowel Sounds; No Organomegaly
Rectal: Deferred by Provider
Musculoskeletal: No Clubbing, No Cyanosis, Edema, Left Lower Extremity (trace ) and Edema, Right Lower Extremity (trace )
Skin: No Rash
Neuro: Awake, No Motor Deficits and Nonfocal/grossly intact
Psych: Calm
Laboratory Results
-
09/18/23 09:40
09/18/23 09:40
Laboratory Results
Lactic Acid 2.6 mmol/L (0.7-2.0) H 09/18/23 09:39
Total Bilirubin 0.7 mg/dl (0.2-1.3) 09/18/23 09:40
AST 45 U/L (17-59) 09/18/23 09:40
ALT 65 U/L (0-50) H 09/18/23 09:40
Alkaline Phosphatase 92 U/L (38-126) 09/18/23 09:40
Impression/Plan
-
#Syncope likely 2/2 orthostatic 2/2 hypovolemia 2/2 diuresis
significant urinary output due to low dose lasix 20mg
states of ~2.5-3L of UOP
BP soft in ER and with lactic acidosis
Receiving IVF now
Trend trop x 3
monitor on tele for arrhythmia
Orthostatic positive in ER.
EKG with ventricular rate of 63. Normal sinus rhythm. No significant ST or T wave changes noted. QTc 413.
No neurological deficit noted.
Will do CT head to complete workup
#Recent klebsiella bacteremia and klebsiella UTI
#History of frequent UTIs
po levaquin for 3 more days.
Renal bladder ultrasound-negative for hydro/obstruction
Repeat surveillance cultures remains neg so far
Chronic thrombocytopenia likely exacerbated due to sepsis
Hemoglobin down tolerated to severe IV fluid/dilutional
Neutropenia resolved likely secondary to sepsis
Trend CBC
Chronic Hyponatremia
Trend for now
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
Recent diagnosis of possible polymyalgia rheumatica:
cont Prednisone 50mg daily per last neuro correspodence noted. OP Rheum eval.
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
Left Hip Fracture status post ORIF 07/03/2023 with left leg edema
Chronic Cholelithiasis / Choledocholithiasis
Moderate Malnutrition in the context of social circumstances
CKD3
Primary HTN
Cont coreg
off norvasc due to le edema
FULL/Eliquis
I spent a total of 78 minutes with the patient or on the floor. More than 50% of this time involved counseling and coordination of care.
[2023-09-18 14:32] LABS: Lactic Acid 2.4 mmol/L (0.7-2.0)
[2023-09-18 15:42] LABS: Troponin I 0.043 ng/ml
--- NOTE | 2023-09-18 16:00 | PTCARENOTE ---
Recieved pt from ED. INDERJ[facility]ING. Oriented to unit. Plan of care is ongoing.
[2023-09-18] MEDS: NSS 1000 IV (16:11)
[2023-09-18] MEDS: TYLENOL 650 MG PO (18:16)
[2023-09-18] MEDS: COLACE 100 MG PO (20:04)
[2023-09-18] MEDS: ELIQUIS 5 MG PO (20:04)
[2023-09-18] MEDS: COREG 3.125 MG PO (20:04)
[2023-09-18] MEDS: LEXAPRO 10 MG PO (20:53)
[2023-09-18 21:34] LABS: Troponin I 0.039 ng/ml
[2023-09-19] VITALS (7 sets, daily range): BP systolic 134–155; BP diastolic 64–77
[2023-09-19] MEDS: NSS 1000 IV ×3 (02:27→19:08)
[2023-09-19 04:07] LABS: % Basophils 0.1 % (0-2); % Eosinophils 0.7 % (0-6); % Immature Granulocytes 5.4 % (0-0.5); % Lymphocytes 18.6 % (20.5-51.1); % Monocytes 7.5 % (1.7-9.3); % Neutrophils 67.7 % (42.2-75.2); Absolute Eosinophils 0.1 10^3/uL (0-0.7); Absolute Immature Granulocytes 0.4 10^3/uL (0-0.05); Absolute Lymphocytes 1.3 10^3/uL (1.2-3.4); Absolute Monocytes 0.5 10^3/uL (0.1-0.6); Absolute Neutrophils 4.8 10^3/uL (1.4-6.5); Hematocrit 29.9 % (39.0-52.0); Hemoglobin 10.3 g/dL (13.0-18.0); Mean Corp Hgb Conc. 34.4 g/dL (33.0-37.0); Mean Corpuscular Hgb 33.8 pg (27.0-31.0); Mean Platelet Volume 9.7 fL (7.4-10.4); Nucleated Red Blood Cells % 0 % (-); Platelet Count 186 10^3/uL (130-400); Red Blood Cell Count 3.05 10^6/uL (4.70-6.10); Red Cell Dist. Width 16.4 % (11.5-14.5)
[2023-09-19 04:29] LABS: Blood Urea Nitrogen 27 mg/dl (9-20); Calcium 7.8 mg/dl (8.4-10.2); Carbon Dioxide 28 mmol/L (22-30); Chloride 104 mmol/L (98-107); Estimated Creatinine Clearance 113 ml/min; Glucose 87 mg/dl (70-99); Sodium 133 mmol/L (135-145); eGFR > 60.00
[2023-09-19 04:55] LABS: Troponin I 0.048 ng/ml
[2023-09-19] MEDS: DELTASONE 50 MG PO (09:13)
[2023-09-19] MEDS: ELIQUIS 5 MG PO ×2 (09:13→19:47)
[2023-09-19] MEDS: VITAMIN B-12 1000 MCG PO (09:13)
[2023-09-19] MEDS: PROTONIX 40 MG PO (09:14)
[2023-09-19] MEDS: COLACE 100 MG PO ×2 (09:14→19:47)
[2023-09-19] MEDS: LEVAQUIN 500 MG PO (09:14)
[2023-09-19] MEDS: FOLVITE 1 MG PO (09:23)
[2023-09-19] MEDS: COREG 3.125 MG PO ×2 (09:23→19:47)
[2023-09-19] MEDS: ASPIR LOW (ENTERIC COATED) 81 MG PO (09:24)
[2023-09-19 09:56] LABS: Lactic Acid 2.5 mmol/L (0.7-2.0)
[2023-09-19 10:11] LABS: Troponin I 0.052 ng/ml
[2023-09-19] MEDS: TYLENOL 650 MG PO ×2 (10:20→15:33)
[2023-09-19] MEDS: DULCOLAX 10 MG RECTAL (11:42)
--- NOTE | 2023-09-19 11:52 | W.PN.HOSP.TC ---
Addendum entered and electronically signed by Louis Leon MD 09/20/23 13:01:
update Goldie over the phone in detail. She was appreciated for updates. She agreed for discharge to [facility] later today.
Original Note:
Today's Communication/Plan
-
Increase IV fluid
Trend lactic acid and troponin
PT OT ordered
Case management for return to [facility]
DC Lasix
Check orthostatics
Assessment / Plan
Assessment / Plan
#Syncope likely 2/2 orthostatic 2/2 hypovolemia 2/2 diuresis
#Elevated troponin likely secondary to above in the setting of hypotension/dehydration
#Lactic acidosis
significant urinary output due to low dose lasix 20mg
states of ~2.5-3L of UOP
BP soft in ER and with lactic acidosis
Receiving IVF now -increased to 150cc/hr
Trend troponin till downtrend noted
monitor on tele for arrhythmia-none noted so far
Orthostatic positive in ER.
EKG with ventricular rate of 63. Normal sinus rhythm. No significant ST or T wave changes noted. QTc 413.
No neurological deficit noted.
Patient extremely sensitive to Lasix. Discontinue further. Only should consider Lasix if with severe edema/anasarca and should consider after exercise
CT head was negative for acute pathology
#Recent klebsiella bacteremia and klebsiella UTI
#History of frequent UTIs
po levaquin for 3 more days.
Renal bladder ultrasound-negative for hydro/obstruction
Repeat surveillance cultures remains neg so far
Chronic thrombocytopenia likely exacerbated due to sepsis
Hemoglobin down titrated to severe IV fluid/dilutional
Platelets stabilized
Chronic Hyponatremia
Trend for now
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
Recent diagnosis of possible polymyalgia rheumatica:
cont Prednisone 50mg daily per last neuro correspondence noted. OP Rheum and neuro eval.
Has outpatient follow-up with neurology end of September
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
Left Hip Fracture status post ORIF 07/03/2023 with left leg edema
Chronic Cholelithiasis / Choledocholithiasis
Moderate Malnutrition in the context of social circumstances
CKD3
Primary HTN
Cont coreg
off norvasc due to le edema
FULL/Eliquis
PT/OT
Dispo-per pt needs to return to [facility] in 2 days. CM c/s
Discussed with spouse over the phone x 2
Anticipated Discharge: Within 24 hours
Subjective/Interval History
-
Date of Service: September 19, 2023
states only had small bm earlier at [facility]
Denies lightheaded dizziness or chest pain
States fell significantly better with IV fluids.
Objective Data
-
Labs:
Laboratory Results
09/19/23
03:39
WBC 7.0
Hgb 10.3 L
Hct 29.9 L
Plt Count 186
Sodium 133 L
Potassium 4.0
Chloride 104
Carbon Dioxide 28
BUN 27 H
Creatinine 0.6 L
Glucose 87
Calcium 7.8 L
Vital Signs:
Vital Signs
Temp Pulse Resp BP Pulse Ox
97.3 F 77 16 143/75 98
09/19/23 07:55 09/19/23 09:23 09/19/23 07:55 09/19/23 09:23 09/19/23 07:55
I&O
09/18/23 09/19/23 09/20/23
06:59 06:59 06:59
Intake Total 480 / 480 1200 / 1200
Output Total 625 / 625
Balance 480 / 480 575 / 575
Physical Exam
-
General: Well Developed, Well Nourished, No Apparent Distress, Comfortable and Conversant
HEENT: Normocephalic and Atraumatic
Respiratory: Clear to Auscultation and Non Labored Respirations; Negative Accessory Resp Muscle Use
Cardiac: Regular Rhythm and S1/S2; Negative Murmur
GI: Soft, Nontender, Nondistended and Normal Bowel Sounds
Musculoskeletal: No Clubbing, No Cyanosis and Edema, Left Lower Extrem; Negative No Edema
Neuro: Awake and Alert
Psych: Calm and Intact Judgement/Insight
Data Reviewed
-
Total Time Spent with Patient (in minutes): 55
[2023-09-19] MEDS: THERAGRAN 1 TABLET PO (12:14)
[2023-09-19 15:09] LABS: Lactic Acid 2.4 mmol/L (0.7-2.0)
[2023-09-19 15:22] LABS: Troponin I 0.052 ng/ml
[2023-09-19] MEDS: LEXAPRO 10 MG PO (19:47)
[2023-09-20] MEDS: NSS 1000 IV (01:30)
[2023-09-20 03:15] VITALS: BP 163/70
[2023-09-20 04:39] LABS: Lactic Acid 1.4 mmol/L (0.7-2.0)
[2023-09-20 07:35] VITALS: BP 174/77
[2023-09-20] MEDS: COREG 3.125 MG PO (08:13)
[2023-09-20] MEDS: LEVAQUIN 500 MG PO (08:13)
[2023-09-20] MEDS: ASPIR LOW (ENTERIC COATED) 81 MG PO (08:14)
[2023-09-20] MEDS: DELTASONE 50 MG PO (08:14)
[2023-09-20] MEDS: ELIQUIS 5 MG PO (08:14)
[2023-09-20] MEDS: PROTONIX 40 MG PO (08:14)
[2023-09-20] MEDS: COLACE 100 MG PO (08:14)
[2023-09-20] MEDS: NSS IV (09:14)
[2023-09-20 09:56] VITALS: BP 156/67; PULSE 85; O2SAT 98
[2023-09-20 09:59] VITALS: BP 156/67; PULSE 85; O2SAT 98
[2023-09-20] MEDS: FOLVITE 1 MG PO (10:15)
[2023-09-20] MEDS: VITAMIN B-12 1000 MCG PO (10:15)
--- NOTE | 2023-09-20 11:14 | W.PN.HOSP.TC ---
Today's Communication/Plan
-
echo
[facility]
dc lasix
monitor BP
compression stocking
Assessment / Plan
Assessment / Plan
#Syncope likely 2/2 orthostatic 2/2 hypovolemia 2/2 diuresis
# Nonischemic myocardial injury in the setting of hypotension/dehydration
#Lactic acidosis resolved
significant urinary output due to low dose lasix 20mg prior to admission
states of ~2.5-3L of UOP
BP soft in ER and with lactic acidosis
stop further fluids
Troponin has plateaued. Will check echocardiogram. Telemetry with no arrhythmias. Pt without any chest pain/sob/holder/pnd/orthopnea.
monitor on tele for arrhythmia-none noted so far
Orthostatic positive in ER.
EKG with ventricular rate of 63. Normal sinus rhythm. No significant ST or T wave changes noted. QTc 413.
No neurological deficit noted.
Patient extremely sensitive to Lasix. Discontinue further. Only should consider Lasix if with severe edema/anasarca and should consider after exercise
CT head was negative for acute pathology
#Recent klebsiella bacteremia and klebsiella UTI
#History of frequent UTIs
po levaquin through 09/21/23 per ID .
Renal bladder ultrasound-negative for hydro/obstruction
Repeat surveillance cultures remains neg so far
Chronic thrombocytopenia likely exacerbated due to sepsis
Hemoglobin down titrated to severe IV fluid/dilutional
Platelets stabilized
Chronic Hyponatremia
Trend for now
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
Recent diagnosis of possible polymyalgia rheumatica:
cont Prednisone 50mg daily per last neuro correspondence noted. OP Rheum and neuro eval.
Has outpatient follow-up with neurology end of September
Right posterior tibial vein thrombosis 08/14/23: cont Eliquis
Left Hip Fracture status post ORIF 07/03/2023 with left leg edema
Chronic Cholelithiasis / Choledocholithiasis
Moderate Malnutrition in the context of social circumstances
CKD3
Primary HTN
Cont coreg
off norvasc due to le edema
FULL/Eliquis
PT/OT
Dispo-DC to acute rehab pending ECHO results
Discussed with spouse over the phone in details on 09/18 and 09/19
More than 30 minutes spent in discharge including
Final examination of the patient
Summarizing hospital stay
Instructions for continuing care to all relevant caregivers
Preparation of discharge records, prescriptions, and referral forms
Total time spent (in minutes): 45
Anticipated Discharge: Today
Subjective/Interval History
-
Date of Service: September 20, 2023
Feeling better
Denies lightheaded dizziness or chest pain
Working with physical therapy and blood pressure was 150s
Objective Data
-
Vital Signs:
Vital Signs
Temp Pulse Resp BP Pulse Ox
97.8 F 79 18 174/77 96
09/20/23 07:35 09/20/23 07:35 09/20/23 07:35 09/20/23 07:35 09/20/23 07:35
I&O
09/19/23 09/20/23 09/21/23
06:59 06:59 06:59
Intake Total 480 / 480 2520 / 2520
Output Total 2275 / 2275
Balance 480 / 480 245 / 245
[2023-09-20 11:22] VITALS: BP 128/66
--- NOTE | 2023-09-20 13:00 | CM ---
Addendum entered by Latrice Lucia 09/20/23 16:36:
[facility]
Report: [phone]
Fax: [phone]
Original Note:
Patient seen bedside, initial assessment completed. Patient admitted from [facility], hopeful to go back. Patient resides with in a two story home with a first floor set up. Patient reports history of [facility]. Patient confirms PCP Geneva
Erika, [facility]. [facility]IRE[facility] form reviewed, signed, placed in chart. [facility] able to accept return of patient today. Per Hospitalist, patient for echo today, then can discharge to [facility]. CM will continue to follow for all discharge
planning needs.
Plan; return to [facility]
--- NOTE | 2023-09-20 13:01 | CARDSERVDEF ---
Echocardiogram with Definity completed after protocol screening completed. Allergies verified.
Patent IV site: _left AC____
IV site flushed with 0.9% NaCl pre and post administration.
Diluted bolus method utilized to enhance visualization of ventricular almanza.
Total volume given: __1.5__ mL
Patient tolerated all procedures well without complications.
[2023-09-20] MEDS: THERAGRAN 1 TABLET PO (13:21)
--- NOTE | 2023-09-20 15:11 | W.DCSUMMARY ---
Discharge Summary
Discharge Data
Date of Admission: 09/18/23
Date of Discharge: 09/20/23
-
Pending Results: No
Hospital Course
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
history of frequent UTIs, right posterior tibial vein thrombosis, primary hypertension, chronic lower extremity edema who is presenting from the most acute rehab with episode of syncope. Patient was restarted on Lasix and he stated he had
significant urinary output approximately 2 to 3 L.. Patient stated he felt lightheaded and dizzy. Patient had a brief episode of loss of consciousness. Patient is a he was able to recall events from prior to the episode. No chest pain or
palpitation throughout. Denies any lightheaded and dizziness once he received IV fluids. Patient was found to be orthostatic positive in the ER. CT of the head was negative for acute pathology. EKG without any severe changes. Troponins are
mildly elevated which was seen secondary to nonischemic myocardial injury. Patient without chest pain throughout hospitalization. Patient was eval by PT and OT. Lasix was discontinued. Underwent echocardiogram with normal left ventricular
chamber size. Mild concentric LVH. Normal regional wall motion. Normal left ventricular systolic function. EF of 55 to 60%. Normal diastolic function. Compared to echo August 2018 there is no significant changes. Aortic root may be mildly
dilated 3.9 cm. Patient will be discharged back to [place].
Discharge Plan
-
Patient Disposition: Acute Rehab Facility
Discharge Diagnosis/Procedures: Syncope likely 2/2 orthostatic hypotension 2/2 diuretics
Condition: Fair
Diet: Regular
Activity: With assistance and As tolerated
Driving Restrictions: Not until seen by your Dr
Referrals:
Geneva James MD [Family Provider] -
Additional Discharge Medication Instructions: Lasix has been discontinued.
Prescriptions:
Continued
acetaminophen [Tylenol] 325 mg Tablet
650 mg PO Q4HPRN PRN (Reason: mild pain/fever)
aspirin 81 mg Tablet,Delayed Release (Dr/Ec)
81 mg PO DAILY
magnesium hydroxide [Milk of Magnesia] 400 mg/5 mL Suspension
30 ml PO DAILYPRN PRN (Reason: CONSTIPATION)
pantoprazole [Protonix] 40 mg Tablet,Delayed Release (Dr/Ec)
40 mg PO DAILY
escitalopram oxalate [Lexapro] 10 mg Tablet
10 mg PO HS
carvedilol 3.125 mg Tablet
3.125 mg PO BID Qty: 60 0RF
Eliquis 5 mg Tablet
5 mg PO BID Qty: 180 0RF
cyanocobalamin (vitamin B-12) 1,000 mcg Tablet
1,000 mcg PO DAILY Qty: 30 0RF
docusate sodium 100 mg Capsule
100 mg PO BID
folic acid 1 mg Tablet
1 mg PO DAILY
prednisone 50 mg Tablet
50 mg PO DAILY 30 Days Qty: 30 0RF
levofloxacin 500 mg tablet
500 mg PO DAILY Qty: 4 0RF
Rx Instructions:
Continue Levaquin 500 mg p.o. daily for an additional 4 days of therapy (through 09/21/23)
therapeutic multivitamin Tablet
1 tab PO DAILY
bisacodyl 5 mg Tablet
10 mg PO DAILYPRN PRN (Reason: constipation)
bisacodyl 10 mg Suppository
10 mg GA DAILYPRN PRN (Reason: if no bm w/ oral)
Discontinued
furosemide 20 mg Tablet
20 mg PO DAILY
Discharge Orders:
Discharge Patient (As Directed); Ordered 09/20/23
Ordered By: Louis Leon
Discharge Date and Time
Print Language: CAY[place] ISLANDER
--- NOTE | 2023-09-20 15:18 | PTCARENOTE ---
Report called to TUCKER Arciniega at [facility].
[2023-09-20 15:40] VITALS: BP 123/69
--- NOTE | 2023-09-20 16:12 | PTCARENOTE ---
Removed tele and peripheral IV. Awaiting transport to [facility].
== END 2023-09-20 16:44 ==
LOC: 4 EAST ACU 13:57
PROVIDERS: Physician Assistant; ADMITTING PHYSICIAN Hospitalist; EMERGENCY PHYSICIAN Emergency Medicine; FAMILY PHYSICIAN Student in an Organized Health Care Education/Training Program
DX: R55 Syncope and collapse (principal); R41.82 Altered mental status, unspecified; M35.3 Polymyalgia rheumatica; R60.0 Localized edema; K80.70 Calculus of gallbladder and bile duct without cholecystitis without obstruction; I5A Non-ischemic myocardial injury (non-traumatic); R42 Dizziness and giddiness; E87.6 Hypokalemia; I12.9 Hypertensive chronic kidney disease with stage 1 through stage 4 chronic kidney disease, or unspecified chronic kidney disease; N18.30 Chronic kidney disease, stage 3 unspecified; I25.10 Atherosclerotic heart disease of native coronary artery without angina pectoris; E78.00 Pure hypercholesterolemia, unspecified; K21.9 Gastro-esophageal reflux disease without esophagitis; E87.20 Acidosis, unspecified; E44.0 Moderate protein-calorie malnutrition; I82.441 Acute embolism and thrombosis of right tibial vein; D69.6 Thrombocytopenia, unspecified; R13.10 Dysphagia, unspecified; E87.1 Hypo-osmolality and hyponatremia; R53.1 Weakness; Z87.440 Personal history of urinary (tract) infections; Z79.52 Long term (current) use of systemic steroids; Z79.01 Long term (current) use of anticoagulants; Z79.82 Long term (current) use of aspirin; Z86.73 Personal history of transient ischemic attack (TIA), and cerebral infarction without residual deficits; Z82.49 Family history of ischemic heart disease and other diseases of the circulatory system; Z68.24 Body mass index [BMI] 24.0-24.9, adult
CPT/HCPCS: 70450; 80048; 80053; 81003; 81015; 83605; 84484; 85025; 93005; 93306; 96360; 97163; 97166; 99285; G0378; Q9957

== ENCOUNTER → 2023-10-11 13:58 | Outpatient (REF) | payer MEDICARE, OTHER, SELFPAY ==
[2023-10-11 15:58] LABS: Creatine Phosphokinase 85 U/L (55-170)
[2023-10-11 16:14] LABS: Erythrocyte Sed Rate 57 mm/hour (0-20)
[2023-10-11 16:33] LABS: TSH 1.61 uIU/ml (0.47-4.68)
[2023-10-14 01:34] LABS: ANA, IgG Reflex to HEp-2 None Detected (None Detected)
== END ==
LOC: REG 13:58
PROVIDERS: ATTENDING PHYSICIAN Psychiatry & Neurology Neurology; FAMILY PHYSICIAN Student in an Organized Health Care Education/Training Program
DX: M60.9 Myositis, unspecified (principal)
CPT/HCPCS: 36415; 82550; 84443; 85652; 86038; 86041; 86140

== ENCOUNTER 2023-10-20 10:59 | Inpatient (IN) | payer MEDICARE, OTHER, SELFPAY ==
[2023-10-20] VITALS (59 sets, daily range): BP systolic 72–154; BP diastolic 42–129; BMI 24.7; BMI 25.4
--- NOTE | 2023-10-20 08:46 | ED.GENMED ---
History of Present Illness
General
Chief Complaint: Weakness
Source: patient and family
Exam Limitations: clinical condition
Time Seen by Provider: 10/20/23 08:19
Nursing documentation reviewed up to this point in time: agreed with
History of Present Illness
History of Present Illness:
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
chronic steroids doing quite well over the last 3 weeks and sees been discharged home ambulating with a walker, course was complicated by Klebsiella UTI/bacteremia with blood cultures being positive was on Vanco and cefepime and transition to
Levaquin who presents for shaking chills this morning generalized weakness and not feeling well. Patient's was worried that maybe he would have sepsis again. He also had urinated which looked dark to her with a little bit of blood in it.
There were no clots. He is on Eliquis. Patient reports no pain. He was not given anything for his fever because was unaware that he had a fever. He had just had the chills.
Patient's not having a cough, belly pain, back pain, penile pain, chest pain shortness of breath. He was generally weak but not focally weak today. She needed to call 911 for the patient to be transported. Patient is immunosuppressed on
prednisone.
Patient was reportedly hypotensive for paramedics in the field 80s over 50s
Past History
Past History
ED Past Medical History: CAD, CVA (2018), GERD, HTN, Hypercholesterolemia, Renal failure (CKD 3) and Other (Vitamin B12, vitamin D, adenomatous polyp, cholelithiasis)
ED Past Surgical History: Orthopedic (left hip ORIF 06/2023) and Other (Hernia, cataract surgery, bilateral cataract surgery, left leg stent)
Social History
Tobacco: Non-smoker
Alcohol: None
Drug: None
Personal:
Living: with family
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
Family History
Family History: Early CAD
Review of Systems
Review of Systems
Allergies reviewed?: Yes
All Other Systems: Not applicable
Phy Exam
Physical Exam
Physical Exam:
GENERAL: Alert generally weak, shaking chills
EYE: pupils equal and reactive
NECK: Supple
ENT: o/p clr, very dry mouth
CARDIAC: Regular rate and rhythm .
LUNGS: Clear breath sounds bilaterally, no acute respiratory distress, no wheezes/rales/rhonchi
ABDOMEN: Soft, without focal tenderness, no r/g, no cvat, normal bowel sounds
No active bleeding from his penis
NEUROLOGICAL: Alert and oriented, no focal neuro deficits able to move his legs but generally weak
SKIN: Warm and dry, skin intact.
MUSCULOSKELETAL: No edema, well perfused. neg luiza's sign
PSYCH: Normal and appropriate interaction.
Course
Orders/Labs/Results
Orders:
Orders
10/20/23 08:19
CR Chest - 2 Views Urgent
Comment:
Reason For Exam: shortness of breath
10/20/23 08:22
Complete Blood Count/With Diff Urgent
Comprehensive Metabolic Panel Urgent
Lactic Acid Urgent
Lipase Urgent
Comment: ADD ON
NT-proBNP Urgent
Urinalysis Reflex To Culture Urgent
Date Specimen was Collected: 10/20/23
Time Specimen was Collected: 08:20
Urine Microscopic Reflex Cult Urgent
Urine Culture Urgent
SHERIF Source: U
Specimen Description:
Date Specimen was Collected: 10/20/23
Time Specimen was Collected: 08:20
10/20/23 08:28
Electrocardiogram (*1) Urgent
Reason for Study: Fatigue / Weakness
EKG- Treatment ONCE
10/20/23 08:42
0.9% Sodium Chloride 1000 ml [Nss] 1,000 ml IV BOLUS
CefTRIAXone [Rocephin] 1,000 mg IV NOW STA
10/20/23 08:43
CT Abd/pel Without Iv Or Oral Urgent
Comment:
Reason For Exam: hematuria, uti, fever, sepsis
10/20/23 08:48
Acetaminophen [Tylenol] 650 mg PO NOW STA
10/20/23 08:49
Cefepime HCl [Maxipime] 2,000 mg IV NOW STA
10/20/23 09:20
Blood Culture Urgent
SHERIF Source: Blood/Venous
Specimen Description:
10/20/23 09:55
Add On- LAB Urgent
Tests Added?: lipase
10/20/23 Lunch
Regular
At Your Request: Full Participation
Does patient need a safe tray?: No
Reason for opting out of [employer] order writing: Provider Decision
10/20/23 10:35
Admit/Transfer Patient As Directed
Co-Sign Provider:
Level of Care: Inpatient admission
Assign to:: IMU- Intermediate Care
Physician / Group: Aurelia
Diagnosis: Sepsis
Reason for Hospitalization: Sepsis
Expected length of stay greater than two midnights?: Yes
ELOS- Estimated Length of Stay in days: 3
I certify the patient meets the requirements for IP care: Yes
PRN Pain Medication Management As Directed
May give lesser potent ordered pain med per pt: Yes
preference::
Protocol:: Medication orders for pain may be administered in a
manner that supports deferring to patient preference
when the pt is:
-Requesting an ordered lesser potent pain medication.
Least to most potent pain medications are defined as:
acetaminophen < NSAID < tramadol < opioids (morphine,
oxycodone, hydromorphone).
- Requesting a lesser dose of the same medication IF
ORDERED.
- Requesting a less intrusive route of administration
if both routes are prescribed by the provider (PO <
IV).
10/20/23 10:41
Code Status As Directed
Resuscitation Status: Full Code
10/20/23 10:52
Ondansetron Injectable [Zofran] 4 mg IV NOW STA
10/20/23 11:00
STOOL [C difficile Antigen & Toxins] Urgent
SHERIF Source: Feces/Stool
Specimen Description:
Date Specimen was Collected: 10/20/23
Time Specimen was Collected: 10:54
Stool Culture Urgent
SHERIF Source: Feces/Stool
Specimen Description:
Date Specimen was Collected: 10/20/23
Time Specimen was Collected: 10:54
10/20/23 11:37
0.9% Sodium Chloride 1000 ml [Nss] 1,000 ml IV 100 mls/hr
10/20/23 11:37
VTE Contraindication Routine
VTE Mechanical Device Contraindication: Suspected DVT
Pharmocologic Contraindication: Bleeding
Bladder Scan As Directed
Follow Bladder Retention/Intermittent Cath Algorithm?: Yes
PRN if no void in __ hours: 6
Frequency: Per Retention Algorithm
If Bladder Scan Result >: 400
then:: Straight cath
Straight Cath As Directed
Frequency: Per Retention Algorithm
Additional Instructions: straight cath as needed per acute urinary retention algorithm for 24 hrs
Additional Instructions: for bladder scan greater than 400 mL
Physical Therapy Consult [Pt Eval And Treat] Routine
Activity Level: As Tolerated
Peripheral Venous Lwr Ext Bilat US [US Periph Venous LOWER Ext Fracisco] Urgent
Comment:
Reason For Exam: follow up with LE DVT
10/20/23 12:00
Aspirin Low Dose EC [Aspir Low (Enteric Coated)] 81 mg PO DAILY
Prednisone [Deltasone] 20 mg PO DAILY
10/20/23 16:00
Midodrine [ProAmatine] 5 mg PO TID
10/20/23 17:00
Cefepime HCl [Maxipime] 2,000 mg IV Q8H
10/21/23 08:00
Cyanocobalamin [Vitamin B-12] 2,000 mcg PO DAILY
Escitalopram Oxalate [Lexapro] 10 mg PO DAILY
FOLic ACID [Folvite] 1 mg PO DAILY
Multivitamin [Theragran] 1 tablet PO DAILY
Pantoprazole [Protonix] 40 mg PO DAILY
Abnormal Lab Results
10/20/23
08:22
WBC 2.0 L* 10^3/uL
(4.8-10.8)
RBC 3.17 L 10^6/uL
(4.70-6.10)
Hgb 11.0 L g/dL
(13.0-18.0)
Hct 33.4 L %
(39.0-52.0)
MCV 105.4 H fL
(80.0-94.0)
MCH 34.7 H pg
(27.0-31.0)
MCHC 32.9 L g/dL
(33.0-37.0)
RDW 16.2 H %
(11.5-14.5)
Abs Immat Gran (auto) 0.1 H 10^3/uL
(0-0.05)
Absolute Lymphs (auto) 0.4 L 10^3/uL
(1.2-3.4)
Absolute Monos (auto) 0.0 L 10^3/uL
(0.1-0.6)
Immature Gran % 7.0 H %
(0-0.5)
Lymphocytes % 18.5 L %
(20.5-51.1)
Monocytes % 0.5 L %
(1.7-9.3)
BUN 34 H mg/dl
(9-20)
Glucose 101 H mg/dl
(70-99)
Lactic Acid 5.4 H* mmol/L
(0.7-2.0)
Total Protein 5.3 L g/dl
(6.3-8.2)
Albumin 2.9 L g/dl
(3.5-5.0)
Ur Occult Blood Reflex 4+ A
(Negative)
Leukocyte Esterase Rfl 2+ A
(Negative)
Urine RBC >100 A /HPF
(0-2)
Urine WBC (Reflex) 26-30 A /HPF
(0-5)
Urine Bacteria (Reflex) Many A
(Negative)
Urine Albumin (Reflex) 2+ A
(Neg - Trace)
10/20/23 08:22
10/20/23 08:22
Vital Signs
Initial and Last Documented VS:
Initial Vital Signs
Pulse Resp
93 22
10/20/23 08:43 10/20/23 08:43
Last Documented Vital Signs
Temp Pulse Resp BP Pulse Ox
99.5 F 85 19 108/56 98
10/20/23 13:57 10/20/23 15:15 10/20/23 15:15 10/20/23 15:15 10/20/23 15:15
MDM/Problems Addressed
Differential Diagnosis Includes:
Urosepsis, bacteremia,
MDM/Problems Addressed:
tico matossian ASCVD, ckd, freq utis, recent myopathy on prednisone, s/p rehab admission dc 3 weeks ago doing well; (while admitted rehab had kleb uti/bacteremia/sepsis treated with vanc/cefeptime and transitioned to levaquin); doing well until
this am; gen weak, shaking chills and small gross hematuria; no retention; temp 101, bp in the field 80/50, normotensive here, rigors; wbc 2 down from 11, cr normal, pending CTAP no obstructive uopathy but he does have what looks like
choledocholithaisis; medicine team made aware;
getting cefepime, was sensitive previously
note that RN noticed pt having multiple episodes of diarhea, stool studies ordered, medicine team aware
*Critical Care Note
Total Time (30-74mins, 75-104mins- exclusive of procedures): Not Applicable
ED Attending Note
-
Portions of this chart may have been created with voice recognition software.� Occasional wrong word or��sound alike� substitutions may have occurred due to the inherent limitations of voice recognition software.
Discharge Plan
Departure
Patient Disposition: Admit
Date of Disposition: 10/20/23
Time of Disposition: :23
Admit to: IMU
Presentation/result/management discussed w/ accepting MD/DO: Hospitalist
Condition: Fair
Covid-19: Not Applicable
Discharge Problem:
Sepsis, UTI (urinary tract infection)
Interventions
Interventions:
*Risk Screen - Suicide Last Done: 10/20/23 08:44
*General Assessment Last Done: 10/20/23 08:44
*Neglect/Abuse Screening Last Done: 10/20/23 08:44
ED- Fall Risk Assessment Last Done: 10/20/23 08:44
*ED COVID-19 Vaccine History Last Done: 10/20/23 08:44
*Nursing Disposition Last Done: 10/20/23 15:19
ED- Cardiac Assessment Last Done: 10/20/23 08:44
ED- Neurological Assessment Last Done: 10/20/23 08:44
ED- Pulmonary Assessment Last Done: 10/20/23 08:44
Discharge Date and Time
Discharge Date/Time: 10/20/23 15:20
[2023-10-20 08:47] LABS: Urine Albumin 2+ (Neg - Trace); Urine Bilirubin Negative (Negative); Urine Character Bloody (Clear); Urine Color Red; Urine Glucose Negative (Negative); Urine Ketone Negative (Negative); Urine Leukocyte 2+ (Negative); Urine Nitrite Negative (Negative); Urine Occult Blood 4+ (Negative); Urine Urobilinogen Negative (Neg - 1+)
[2023-10-20 08:49] LABS: Hematocrit 33.4 % (39.0-52.0); Mean Corp Hgb Conc. 32.9 g/dL (33.0-37.0); Mean Corpuscular Hgb 34.7 pg (27.0-31.0); Mean Corpuscular Volume 105.4 fL (80.0-94.0); Mean Platelet Volume 9.4 fL (7.4-10.4); Platelet Count 148 10^3/uL (130-400); Red Blood Cell Count 3.17 10^6/uL (4.70-6.10); Red Cell Dist. Width 16.2 % (11.5-14.5)
[2023-10-20 08:51] LABS: ALT (SGPT) 21 U/L (0-50); AST (SGOT) 32 U/L (17-59); Albumin 2.9 g/dl (3.5-5.0); Alkaline Phosphatase 85 U/L (38-126); Blood Urea Nitrogen 34 mg/dl (9-20); Calcium 8.9 mg/dl (8.4-10.2); Carbon Dioxide 24 mmol/L (22-30); Chloride 105 mmol/L (98-107); Glucose 101 mg/dl (70-99); Potassium 3.9 mmol/L (3.5-5.1); Sodium 136 mmol/L (135-145); Total Bilirubin 0.8 mg/dl (0.2-1.3); Total Protein 5.3 g/dl (6.3-8.2); eGFR > 60.00
[2023-10-20 09:00] LABS: NT-proBNP 1480 pg/ml
[2023-10-20] MEDS: MAXIPIME 2000 MG IV ×2 (09:11→20:15)
[2023-10-20] MEDS: TYLENOL 650 MG PO (09:12)
[2023-10-20] MEDS: NSS 1000 IV ×3 (09:12→20:16)
[2023-10-20 10:06] LABS: % Basophils 0.5 % (0-2); % Lymphocytes 18.5 % (20.5-51.1); % Monocytes 0.5 % (1.7-9.3); % Neutrophils 73.5 % (42.2-75.2); Absolute Immature Granulocytes 0.1 10^3/uL (0-0.05); Absolute Lymphocytes 0.4 10^3/uL (1.2-3.4); Absolute Neutrophils 1.5 10^3/uL (1.4-6.5)
[2023-10-20 10:09] LABS: Lactic Acid 5.4 mmol/L (0.7-2.0)
[2023-10-20 10:17] LABS: Lipase 81 U/L (23-300)
--- NOTE | 2023-10-20 10:48 | HPS.HSE ---
Addendum entered and electronically signed by Darien Moses MD 10/20/23 11:10:
While in ED patient developed loose stools.
Stool culture and stool for C. difficile ordered.
Original Note:
Family Physician
-
Family Physician: Geneva James MD
Chief Complaint
-
Chills and rigors
History of Present Illness
Patient is 77 years old male with complicated medical history who was recently hospitalized for Klebsiella UTI complicated with bacteremia and sepsis, completed course of antibiotics initially IV and oral was doing relatively well after rehab,
although over the last 24 hours developed severe fatigue, chills and rigors, with no documented fever, patient's reported least 2 episodes of hematuria over the last 24 to 48 hours spontaneously cleared. Patient denies any respiratory
symptoms, abdominal pain, dysuria/retention. With concern for recent UTI as well as above patient was brought to the emergency room.
While in emergency room patient is febrile, hemodynamically stable. He offers no additional complaints.
Additional workup relevant for neutropenia, lactic acidosis of 5.6.
Imaging CT of the abdomen pelvis with normal kidneys ruling out urinary tract abnormalities, choledocholithiasis with CBD size of 5 mm (which was traced on recent MRI of the abdomen)
Normal liver function test and pancreatic enzymes.
Patient was initiated on cefepime and given bolus of isotonic saline.
Medical History
Past Medical History
Past Medical History: Reports CAD, CVA, HTN, Hypercholesterolemia and Other (Inflammatory myopathy)
Past Surgical History: Reports None
Social History
Tobacco: Non-smoker
Drug: None
Personal:
Living: With Family
Employment: Not Employed
Family History
Family History: Not pertinent
Allergies / Home Medications
Allergies reflects when Allergies were last updated in [email or web address].
Home Medications with original date entered in [email or web address]
Allergy/Medication List:
Allergies
Allergy/AdvReac Type Severity Reaction Status Date / Time
gluten Allergy Severe Celiac Verified 09/17/23 13:03
disease
Home Medications
aspirin 81 mg tablet,delayed release 81 mg PO DAILY Blood Clot Prevention/Tx 08/13/23
therapeutic multivitamin 1 tab PO DAILY Supplement 09/18/23
apixaban 5 mg tablet (Eliquis) 5 mg PO BID DVT 30 days #60 tabs 10/05/23
carvedilol 3.125 mg tablet 3.125 mg PO BID Blood pressure 30 days #60 tabs 10/05/23
folic acid 1 mg tablet 1 mg PO DAILY Supplement 30 days #30 tabs 10/05/23
pantoprazole 40 mg tablet,delayed release 40 mg PO DAILY GERD 30 days #30 tabs 10/05/23
cyanocobalamin (vitamin B-12) 1,000 mcg tablet 2,000 mcg PO DAILY supplement 10/20/23
escitalopram oxalate 10 mg tablet 10 mg PO DAILY Depression 10/20/23
midodrine 5 mg tablet 5 mg PO TID orthostasis - low blood pressure 10/20/23
prednisone 20 mg tablet 20 mg PO DAILY 10/20/23
Review of Systems
-
A 12 point ROS was completed and negative except as noted: Yes
Physical Exam
Vital Signs
Vital Signs
Temp Pulse Resp BP Pulse Ox
102.0 F H 115 27 154/129 90
10/20/23 09:43 10/20/23 09:45 10/20/23 09:45 10/20/23 09:25 10/20/23 09:30
Physical Exam
General: Well Developed, Well Nourished, No Apparent Distress and Appears Chronically Ill
HEENT: NormoCephalic, Moist mucous membranes and Atraumatic
Respiratory: Clear
Cardiac: S1/S2 and Regular Rhythm; No Murmur or Rub
GI: Soft, Non Tender, Non Distended and Normal Bowel Sounds; No Organomegaly
Rectal: Deferred by Provider
Musculoskeletal: No Clubbing, No Cyanosis and No Edema
Skin: No Rash
Neuro: Nonfocal/grossly intact
Laboratory Results
-
10/20/23 08:22
10/20/23 08:22
Laboratory Results
Lactic Acid 5.4 mmol/L (0.7-2.0) H* 10/20/23 08:22
Total Bilirubin 0.8 mg/dl (0.2-1.3) 10/20/23 08:22
AST 32 U/L (17-59) 10/20/23 08:22
ALT 21 U/L (0-50) 10/20/23 08:22
Alkaline Phosphatase 85 U/L (38-126) 10/20/23 08:22
Lipase 81 U/L (23-300) 10/20/23 08:22
Data Reviewed
-
Diagnostic Radiology: Report Reviewed by me
Lab Data: Labs Reviewed by me
Impression/Plan
-
IMPRESSION:
77 years old male with extensive past medical history including recent UTI and sepsis with Klebsiella bacteremia presents with chills and rigors, reported gross hematuria (self clear) at home
Sepsis (fever, tachycardia, lactic acidosis, neutropenia)
-Likely source UTI, less likely intra-abdominal/biliary tract.
-Lactic acidosis
� Neutropenia
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
Recent hospitalization with sepsis, complicated UTI with Klebsiella bacteremia.
Conditions prior to admission:
CAD
History of CVA 2018 baseline essential hypertension, hold with chronic hypotension on midodrine prior to presentation but
Dyslipidemia baseline CKD stage III by records.
Choledocholithiasis.
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
GERD
Depression
PLAN:
Sepsis with likely source UTI.
UA abnormal, also report episode of hematuria while on Eliquis at home.
Recent hospitalization with complicated UTI and Klebsiella bacteremia.
Lactic acidosis/neutropenia related to above.
CT scan of the abdomen pelvis with no urinary tract pathology
Empiric antibiotics: Cefepime pending cultures.
Bladder scan for retention and close monitoring for recurrent hematuria
Hold Eliquis
Serial lactate level.
Follow CBC for worsening of neutropenia.
IV fluids bolus per
Hold Coreg monitoring blood pressure closely
Continue preadmission midodrine
Consider ID consultation
Patient with choledocholithiasis on CT also traced on previous imaging with MRI.
He has no abdominal pain pain/normal LFTs lipase
Monitor closely including serial LFTs. Depends on evolving clinical course may require additional imaging and GI consultation.
Lower extremity DVT.
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
No evidence for deep venous thrombosis from the common femoral through the popliteal vein. The right peroneal vein and the proximal greater saphenous vein also appear patent.
Repeat Doppler.
Hold Eliquis given reported hematuria.
ASCVD
History of CVA baseline essential hypertension
Dyslipidemia.
Echocardiogram with preserved LVEF and no valvular abnormalities.
Continue aspirin
Hold Coreg with concern for evolving sepsis and hypotension.
Inflammatory myopathy
Also has been worked up for PMR, prior workup not consistent with myasthenia gravis.
Continue preadmission steroid maintenance currently on prednisone 20 mg daily.
GERD continue PPI.
Depression continue escitalopram
Full code.
DVT prophylaxis hold Eliquis as above.
[2023-10-20] MEDS: ZOFRAN 4 MG IV (10:57)
[2023-10-20 10:58] LABS: Urine Red Blood Cell >100 /HPF (0-2)
[2023-10-20 10:59] LABS: Urine Bacteria Many (Negative)
[2023-10-20 11:01] LABS: Urine White Cell 26-30 /HPF (0-5)
--- NOTE | 2023-10-20 11:03 | EDRN ---
the pt pressed the call waller and this RN and PCT Ashli entered the pts room, the pt had a large loose BM, the second one today due to the pt being soiled when he arrived via EMS, this RN and Ashli PCT cleaned the pt and changed pad, brief, gown, and
linens, the pt started to dry heave and Zofran was ordered and administered, this RN spoke with America JIMENEZ and a stool sample was obtained and sent to the lab, the pt is resting in stretcher in the lowest position, side rails up x2, call
waller within reach, HOB elevated, will continue to monitor the pt closely
--- NOTE | 2023-10-20 11:15 | EDRN ---
the pts Sp02 on RA dipped to 89%, this RN notified the provider America JIMENEZ and placed the pt on 3L NC, Sp02 came up to 96%, will continue to monitor the pt closely
--- NOTE | 2023-10-20 11:37 | EDRN ---
orders processed for IMU Hold
[2023-10-20] MEDS: ASPIR LOW (ENTERIC COATED) 81 MG PO (11:59)
[2023-10-20] MEDS: DELTASONE 20 MG PO (11:59)
--- NOTE | 2023-10-20 12:21 | EDRN ---
the pt pressed the call waller and this RN entered the pts room, the pts stated that he had another bowel movement and needed to be changed, this RN cleaned the pt and changed the pts brief, pad, and gown, this RN noticed redness on the pts
sacrum and b/l buttock and placed barrier cream, the pt was repositioned for comfort, will continue to monitor the pt closely
--- NOTE | 2023-10-20 12:43 | EDRN ---
pts blood pressures running low, provider notified, IV hung and running at 100cc/hour
--- NOTE | 2023-10-20 13:37 | EDRN ---
the pt is hypotensive at 72/48 (57), this RN notified Dr. Moses, awaiting response
[2023-10-20 13:40] LABS: Lactic Acid 2.8 mmol/L (0.7-2.0)
--- NOTE | 2023-10-20 13:42 | EDRN ---
Dr. Moses is going to transfer the pt to ICU and is going to order Levophed
--- NOTE | 2023-10-20 13:45 | W.PN.UPDATE ---
Update Note
Progress Note Update
Patient remains hypotensive with SBP in 70s after IV fluid bolus
Will be redirected to ICU.
Initiate Levophed
Continue IV fluids and antibiotics
ID/crm manager consultation.
[2023-10-20] MEDS: LEVOPHED 250 IV ×2 (13:51→18:04)
--- NOTE | 2023-10-20 15:20 | CON.INTV ---
Consultation
Consultation Request
Date/Time Consultation Requested: 10/20/2023 - 1343
Date/Time Consultation Performed: 10/20/2023 - 1413
Requesting Provider: Dr. Moses
Performing Provider: Dr. Ponce
Reason for Consultation: Septic shock
Medical History
-
Chief Complaint: Bloody urine with episode of unresponsiveness/chills + rigors
History of Present Illness:
77-year-old male with a past medical history of CVA, coronary artery disease, hypertension, GERD, CKD, PMR on chronic steroids with history of requiring IVIG, hypertension and hypercholesterolemia who presented from home due to continued bloody
urine for the last few days with episode of unresponsiveness for about 30 seconds. Patient recently hospitalized briefly from 09/17 - 09/20/2019 for who presented from [facility] with syncope, suspected to be from Lasix and increased urine output with
dizziness and subsequent LOC. CT head was negative for acute pathology. Echo showed normal LV size with mild concentric LVH with no regional WMA. Patient was discharged back to [facility] on 09/20/2023 where he stayed until 10/05/2023. He did have
Klebsiella aerogenes bacteremia via urine culture on September 12, 2023, and prior urine culture from also showed Klebsiella aerogenes. He was doing well after being home from rehab however ever over the last day or so he has been having
worsening fatigue with chills and rigors. He also has been having hematuria which spontaneously cleared. Patient febrile to 102.5 �F in the ER, pulse rate 93, breathing at 22 breaths/min, BP 146/71 and saturating 96% on room air. Labs showed
leukopenia to 2, anemia to 11, thrombocytopenia to 148, lactic acidosis to 5.4, glucose 101, proBNP elevated at 1480, with urinalysis showing bloody clarity with negative nitrites and +2 leukocyte esterase, 26-30 urine WBC. Urine culture and blood
culture were collected. Also stool studies collected as he developed diarrhea in the ER. CXR showed no radiographic evidence of pneumonia or acute cardiopulmonary pathology, and CT abdomen/pelvis showed choledocholithiasis with a 5 mm calcified
gallstone within the distal CBD, with bilateral mild perinephric stranding without hydronephrosis. Patient given Tylenol, cefepime, Zofran and IVF with NS 0.9% x2 L in the ER and started on Levophed due to persistent hypotension with SBP's in the
70�80s. Patient admitted to the ICU for further care with critical care services consulted for additional management/recommendations.
Bedside ultrasound performed on the patient and he has 53% IVC collapsibility with A-line predominance seen on bilateral lung quezada. He says he is feeling much better although still feels ill. Currently on Levophed at 8mcg/min, and NS at 100
cc/h. He is saturating 99% on 3 L/min nasal cannula, heart rate 98, and BP 101/59. He denies chest pain, headache, abdominal pain, fevers or chills. He says that he has history of gallstones and was supposed to have his gallbladder removed last
year but this was postponed until his health improved but it is never happened.
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
regurgitation, vitamin D deficiency, history of adenomatous polyp, depression, cholelithiasis, PMR with suspected myasthenia gravis recently on pulse dose steroids and IVIG, left hip fracture s/p ORIF, history of UTI
PSHx: Right shoulder arthrocentesis, hernia repair, eye surgery (in childhood), bilateral cataract surgeries, left leg stent
Past Medical History
Past Medical History: Other (Above as per HPI)
Past Surgical History: Other (Above as per HPI)
Social History
Tobacco: Non-smoker
Alcohol: None
Drug: None
Personal:
Living: With Family
Employment: Not Employed
Family History
Family History: CAD (Father: History of AL) and Cancer (Mother: Lung cancer)
Allergies / Home Medications
Allergies
Allergy/AdvReac Type Severity Reaction Status Date / Time
gluten Allergy Severe Celiac Verified 09/17/23 13:03
disease
Home Medications
�Medication �Instructions �Recorded �Confirmed �Last Taken �Type
aspirin 81 mg tablet,delayed 81 mg PO DAILY Blood Clot 08/13/23 10/20/23 10/19/23 History
release Prevention/Tx
therapeutic multivitamin 1 tab PO DAILY Supplement 09/18/23 10/20/23 10/19/23 History
apixaban 5 mg tablet (Eliquis) 5 mg PO BID DVT 30 days #60 tabs 10/05/23 10/20/23 10/19/23 Rx
carvedilol 3.125 mg tablet 3.125 mg PO BID Blood pressure 30 10/05/23 10/20/23 10/19/23 Rx
days #60 tabs
folic acid 1 mg tablet 1 mg PO DAILY Supplement 30 days 10/05/23 10/20/23 10/19/23 Rx
#30 tabs
pantoprazole 40 mg tablet,delayed 40 mg PO DAILY GERD 30 days #30 10/05/23 10/20/23 10/19/23 Rx
release tabs
cyanocobalamin (vitamin B-12) 2,000 mcg PO DAILY supplement 10/20/23 10/20/23 10/19/23 History
1,000 mcg tablet
escitalopram oxalate 10 mg tablet 10 mg PO DAILY Depression 10/20/23 10/20/23 10/19/23 History
midodrine 5 mg tablet 5 mg PO TID orthostasis - low 10/20/23 10/20/23 10/20/23 History
blood pressure
prednisone 20 mg tablet 20 mg PO DAILY MYOPATHY 10/20/23 10/20/23 10/19/23 History
Review of Systems
-
History Source: Patient
All other systems: Negative unless noted
Vitals / Labs / Diagnostic Testing
Vital Signs
Temp Pulse Resp BP Pulse Ox
98.5 F 90 18 102/62 99
10/20/23 16:16 10/20/23 17:45 10/20/23 17:45 10/20/23 17:45 10/20/23 17:45
Lab Data
10/20/23 08:22
10/20/23 08:22
Laboratory Results
10/20/23
17:03
PT 17.2 H
INR 1.40
APTT 34.7
Microbiology
10/20/23 11:00 Feces/Stool C. difficile GDH Antigen & Toxins - Final
Negative for toxigenic C.difficile
Diagnostic Testing:
Physical Exam
-
HEENT: Normocephalic and Anicteric
Cardiovascular: S1/S2 and Peripheral Edema (+2 lower extremity pitting edema bilaterally)
Respiratory: Wheeze (Negative), Rales (Bibasilar rales), Rhonchi (Negative) and Non-Labored Respirations
GI: Soft, Non Distended, Non Tender and Normal Bowel Sounds
Neurology: Awake, Alert and Tremors (negative)
Skin: Warm and Dry
General: Respiratory Distress (Negative), Comfortable, Fever (Negative) and Chills (Negative)
Assessment
-
Assessment: 77-year-old male with a PMHx of CVA, coronary artery disease, hypertension, GERD, CKD, PMR on chronic steroids with history of requiring IVIG, hypertension and hypercholesterolemia who presented from home due to continued bloody urine
for the last few days with episode of unresponsiveness for about 30 seconds. Patient recently hospitalized briefly from 09/17 - 09/20/2019 for who presented from [facility] with syncope, suspected to be from Lasix and increased urine output with
dizziness and subsequent LOC. CT head was negative for acute pathology. Echo showed normal LV size with mild concentric LVH with no regional WMA. Patient was discharged back to [facility] on 09/20/2023 where he stayed until 10/05/2023. He did have
Klebsiella aerogenes bacteremia via urine culture on September 12, 2023, and prior urine culture from also showed Klebsiella aerogenes. He was doing well after being home from rehab however ever over the last day or so he has been having
worsening fatigue with chills and rigors. He also has been having hematuria which spontaneously cleared. Patient febrile to 102.5 �F in the ER, pulse rate 93, breathing at 22 breaths/min, BP 146/71 and saturating 96% on room air. Labs showed
leukopenia to 2, anemia to 11, thrombocytopenia to 148, lactic acidosis to 5.4, glucose 101, proBNP elevated at 1480, with urinalysis showing bloody clarity with negative nitrites and +2 leukocyte esterase, 26-30 urine WBC. Urine culture and blood
culture were collected. Also stool studies collected as he developed diarrhea in the ER. CXR showed no radiographic evidence of pneumonia or acute cardiopulmonary pathology, and CT abdomen/pelvis showed choledocholithiasis with a 5 mm calcified
gallstone within the distal CBD, with bilateral mild perinephric stranding without hydronephrosis. Patient given Tylenol, cefepime, Zofran and IVF with NS 0.9% x2L in the ER and started on Levophed due to persistent hypotension with SBP's in the
70�80s. Patient admitted to the ICU for further care with critical care services consulted for additional management/recommendations.
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
elevated LFTs, mitral regurgitation, vitamin D deficiency, history of adenomatous polyp, depression, cholelithiasis, PMR with suspected myasthenia gravis recently on pulse dose steroids and IVIG, left hip fracture s/p ORIF, history of UTI
Impression:
#Septic shock due to urinary tract infection vs choledocholithiasis in setting of hypovolemia
#Lactic acidosis due to above
#Acute respiratory failure with hypoxia on supplemental oxygen, likely due to sepsis with acute organ dysfunction
#History of Klebsiella aerogenes bacteremia due to UTI
#Anemia (mild)
#Thrombocytopenia (mild)
#History of PMR with suspected myasthenia gravis recently on pulse dose steroids and IVIG now on chronic prednisone at 20 mg daily
#History of cholelithiasis
#GERD
Plan:
- Continue broad-spectrum biotics with cefepime and add IV Flagyl for anaerobic coverage
- Check RUQ ultrasound to assess for biliary tree dilatation and diameter of CBD
- Continue to trend lactate level until <2mmol/L
- Continue vasopressors with goal MAP>65
- Give an additional 1-2 L of IVF with LR as his IVC collapsibility is 53% indicating that he would respond to additional IVF
- Start vasopressin if levophed requirements reach 10mcg/min or greater
- Start stress dose steroids given he is on chronic prednisone and is at risk of relative adrenal insufficiency
- Follow up urine and blood cultures
- Hold home PO anti-hypertensives until he clinically improves and is off vasopressors for at least 24 hours
- Maintain SpO2 >90-94% and titrate supplemental O2 to maintain this goal
- prn nebulized bronchodilators
- Trend Hb and transfuse to keep Hb>7g/dL, plt>20k
- Replete electrolytes with K>4, Mg>2
- Maintain euglycemia with goal BG 140-180
- Incentive spirometer encouraged
- DVT ppx
Continue ICU level care for this critically ill patient.
Critical care statement: A total of 40 minutes of critical care time was provided for this patient today. This includes management of unstable vital signs, evaluation of the patient at bedside, reviewing the patient's pertinent medical records
including radiographs, microbiology, laboratory evaluations, and discussion with primary team, consultants, pharmacy, nutrition, physical therapy, case management, charge nurse, critical care nursing, and respiratory therapy.
Data:
Transthoracic echocardiogram 09/20/2023:
Normal left ventricular chamber size. Mild concentric left ventricular
hypertrophy. Normal regional wall motion. Normal left ventricular systolic
function. Left ventricular ejection fraction is 55-60%. Normal diastolic
function.
Mildly dilated aortic root. Sinuses of Valsalva -3.9 cm.
Since echo August 2018, there is no significant change. Aortic root may be
mildly dilated at 3.9 cm.
--- NOTE | 2023-10-20 16:31 | CON.ID ---
Consultation
-
Date/Time Consultation Requested: 10/20/2023 1344
Date/Time Consultation Performed: 10/20/2023 1624
Requesting Provider: Dr. Moses
Performing Provider: Dr. Tracy
Reason for Consultation: Sepsis
Chief Complaint / Past History
History of Present Illness
Steffen Soriano is a 77-year-old man being evaluated at the request of Dr. Moses in regards to sepsis. History is obtained from chart review, along with patient interview.
The patient is known to the Infectious Diseases service, having been seen in early September for bacteremia. At that point in time he was dealing with some type of inflammatory process, possibly polymyalgia rheumatica versus myasthenia gravis and was
placed on pulse dose steroids along with IVIG. Blood cultures at that time revealed the presence of Klebsiella aerogenes, and the patient was placed on a course of Levaquin to continue through 09/21/2023. He ultimately went to rehab, and was
discharged from [facility] on 10/05/2023.
He presents back to the emergency room today secondary to shaking chills this morning, along with reported generalized weakness and general malaise. His was concerned that he might have sepsis again and he was brought back to the hospital for
further evaluation.
ER workup revealed leukopenia with a white count of 2.0, although the patient was not neutropenic. He also was found to have a lactic acidosis, and has been placed on empiric antibiotics.
The patient has been admitted to the intensive care unit. Currently he reports feeling somewhat improved. He notes last night he was feeling fine and without any issues, although this morning he did recall having some urinary burning and possibly
some blood in the urine. He denies any suprapubic discomfort at present.
Past History
Additional Past Medical History:
CAD
ASCVD
Inflammatory myopathy
CVA (2018
GERD
HTN
Dyslipidemia
CKD stage III
Cholelithiasis
Additional Past Surgical History:
Left hip ORIF (06/2023)
Hernia repair
Cataract surgery
Left leg stent
Allergy History:
gluten Allergy (Severe, Verified 09/17/23 13:03)
Celiac disease
Medications Reviewed: Yes
Current Antibiotics:
Cefepime 2 g IV every 8 hours
Social History
Tobacco: Non-Smoker
Alcohol: None
Drug: None
Personal:
Living: With Family
Employment: Retired
Family History
Family History: Not Pertinent
Review of Systems
Vital Signs
Temp Pulse Resp BP Pulse Ox
98.5 F 93 20 125/54 99
10/20/23 16:16 10/20/23 16:15 10/20/23 16:15 10/20/23 16:15 10/20/23 16:25
Physical Exam
Physical Exam
Constitutional: No Acute Distress, Comfortable, Chronically Ill and Non-toxic
Eyes: Pupils Equal, Pupils Round, No Conjunctival Hemorrhage and Sclera Anicteric
Cardiovascular: S1/S2; Negative S3/S4
Pulmonary: Clear; Negative Wheezes, Rales or Rhonchi
Gastrointestinal: Soft, Non Tender, Non Distended, Normal Bowel Sounds, No Rebound and No Guarding
Genito-Urinary: Negative Villareal
Extremities: Edema (4+ LE's); Negative Cyanosis or Erythema
Skin: Warm and Dry; Negative Rash or Jaundice
Neurological: Awake, Alert and Oriented
Psychological: Calm
Lab / Diagnostic Study Results
10/20/23 08:22
10/20/23 08:22
Abs Immat Gran (auto) 0.1 10^3/uL (0-0.05) H 10/20/23 08:22
Absolute Neuts (auto) 1.5 10^3/uL (1.4-6.5) 10/20/23 08:22
Absolute Lymphs (auto) 0.4 10^3/uL (1.2-3.4) L 10/20/23 08:22
Absolute Monos (auto) 0.0 10^3/uL (0.1-0.6) L 10/20/23 08:22
Absolute Basos (auto) 0.0 10^3/uL (0-0.2) 10/20/23 08:22
Immature Gran % 7.0 % (0-0.5) H 10/20/23 08:22
Neutrophils % 73.5 % (42.2-75.2) 10/20/23 08:22
Lymphocytes % 18.5 % (20.5-51.1) L 10/20/23 08:22
Monocytes % 0.5 % (1.7-9.3) L 10/20/23 08:22
Eosinophils % 0.0 % (0-6) 10/20/23 08:22
Basophils % 0.5 % (0-2) 10/20/23 08:22
Lactic Acid 2.8 mmol/L (0.7-2.0) H 10/20/23 12:04
Ur Squamous Epith Cells 3-5 /LPF (Few) 10/20/23 08:22
Microbiology Results
Micro:
10/20/23 11:00 C. difficile GDH Antigen & Toxins - Final
Feces/Stool Negative for toxigenic C.difficile
10/20/23 11:00 Salmonella/Shigella Culture - Pending
Feces/Stool Campylobacter Culture - Pending
Shiga Toxin Test - Pending
10/20/23 09:20 Blood Culture - Pending
Blood/Venous
10/20/23 08:22 Urine Culture - Pending
Urine
Imaging:
10/20/2023 CT abdomen/pelvis without contrast: Choledocholithiasis noted. A 5 mm calcified gallstone within the distal common bile duct with additional calcified gallstones noted within the gallbladder lumen and with mild gallbladder distention.
Mildly thickened bladder with foci of gas seen anteriorly. No evidence for hydronephrosis or nephrolithiasis. Please see full dictation for additional detail. Film personally viewed.
Assessment / Plan
Clinical sepsis
Hypotension; on pressors
Leukopenia, without neutropenia
Suspected urinary tract infection (complicated)
CAD
ASCVD
Inflammatory myopathy
CVA (2018
GERD
HTN
Dyslipidemia
CKD stage III
Cholelithiasis
Recommendations:
Continue with empiric cefepime, although dose can be decreased to 2 g IV every 12.
Blood cultures and urine culture currently pending.
Follow white count and temperature curve.
Wean pressors as able. Maintain MAP greater than 65.
Further recommendations as additional data is returned.
Patient critically ill, on pressors, and intensive care unit
--- NOTE | 2023-10-20 16:36 | PTCARENOTE ---
Rec'd care of patient at 1530. Patient alert and oriented. Vitals stable. Levophed infusing @ 20 mcgs through peripheral INT with IVFs. Weaning down as tolerated. Titrating for MAP >65. NSR on tele monitor. +3 pitting edema in b/l LE. Pulse
palpable. Pulse ox 99% on 3L nc. CARREON. Crackles in b/l LE. +BS. Incontinent of loose BM. Negative for cdiff. Voiding via urinal. Tea colored. Skin breakdown on coccyx from MASD. Barrier ointment applied.
[2023-10-20] MEDS: ProAmatine 5 MG PO ×2 (16:50→20:16)
--- NOTE | 2023-10-20 17:07 | PTCARENOTE ---
Levophed down to 10mcgs.
[2023-10-20 17:32] LABS: PT 17.2 Sec (11.4-14.6)
[2023-10-20 17:33] LABS: APTT 34.7 Sec (23.4-35.0); Lactic Acid 6.2 mmol/L (0.7-2.0)
--- NOTE | 2023-10-20 17:36 | PTCARENOTE ---
Repeat lactic 6.2. Dr. Ponce notified.
[2023-10-20] MEDS: LR 1000 IV (19:13)
--- NOTE | 2023-10-20 20:00 | PTCARENOTE ---
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 pt voiding angela colored urine. POC discussed, call waller with pt.
[2023-10-20] MEDS: FLAGYL 500 MG 100 IV (20:12)
[2023-10-20] MEDS: STERILE WATER FOR INJECTION 10 ML IV (20:16)
[2023-10-20] MEDS: SOLU-CORTEF 50 MG IV (20:28)
[2023-10-20 21:07] LABS: Lactic Acid 5.6 mmol/L (0.7-2.0)
[2023-10-21] VITALS (45 sets, daily range): BP systolic 92–130; BP diastolic 46–98; PULSE 83; O2SAT 98; BMI 25.8
[2023-10-21] MEDS: TYLENOL 650 MG PO (00:25)
--- NOTE | 2023-10-21 00:30 | PTCARENOTE ---
pt c/o headache- order for prn tylenol obtained/dose given. no further changes in assessment.
[2023-10-21] MEDS: SOLU-CORTEF 50 MG IV ×2 (03:00→07:57)
[2023-10-21] MEDS: FLAGYL 500 MG 100 IV (03:48)
[2023-10-21] MEDS: LEVOPHED 250 IV (03:48)
--- NOTE | 2023-10-21 04:00 | PTCARENOTE ---
no change in pt assessment, turned, skin care, repositioned.
[2023-10-21 04:29] LABS: Hematocrit 31.9 % (39.0-52.0); Hemoglobin 10.9 g/dL (13.0-18.0); Lactic Acid 2.7 mmol/L (0.7-2.0); Mean Corp Hgb Conc. 34.2 g/dL (33.0-37.0); Mean Corpuscular Hgb 35.6 pg (27.0-31.0); Mean Corpuscular Volume 104.2 fL (80.0-94.0); Mean Platelet Volume 10.1 fL (7.4-10.4); Platelet Count 124 10^3/uL (130-400); Red Blood Cell Count 3.06 10^6/uL (4.70-6.10); Red Cell Dist. Width 16.3 % (11.5-14.5); White Blood Cell Count 25.9 10^3/uL (4.8-10.8)
[2023-10-21 04:36] LABS: ALT (SGPT) 23 U/L (0-50); AST (SGOT) 41 U/L (17-59); Albumin 2.3 g/dl (3.5-5.0); Alkaline Phosphatase 60 U/L (38-126); Blood Urea Nitrogen 33 mg/dl (9-20); Calcium 8.3 mg/dl (8.4-10.2); Carbon Dioxide 24 mmol/L (22-30); Chloride 106 mmol/L (98-107); Estimated Creatinine Clearance 62 ml/min; Glucose 96 mg/dl (70-99); Magnesium 1.6 mg/dl (1.6-2.3); Phosphorus 4.2 mg/dl (2.5-4.5); Potassium 4.7 mmol/L (3.5-5.1); Sodium 134 mmol/L (135-145); Total Bilirubin 0.5 mg/dl (0.2-1.3); Total Protein 4.7 g/dl (6.3-8.2); eGFR > 60.00
[2023-10-21 05:00] LABS: Absolute Neutrophils -Man Diff 23.5 10^3/uL (1.4-6.5); Anisocytosis 1+; Band Neutrophils 17 % (0-3); Lymphocytes 3 % (20-51); Metamyelocytes 3 % (-); Monocytes 1 % (2-9); Myelocytes 1 % (-); Normal RBC Morphology No; Platelets Checked Yes; Segmented Neutrophils 74 % (42-75); Total Cells Counted 100
--- NOTE | 2023-10-21 07:20 | W.PN.HOSP.TC ---
Today's Communication/Plan
-
wean pressors
restart meds if able
cont ABX and stress dose steroids
renew drips/IVF
follow labs
Assessment / Plan
Assessment / Plan
pt is a 77 year old male
Septic shock with lactic acidosis requiring pressors (Levophed) likely due to gm neg UTI (urine culture positive)--UA abnormal, also report episode of hematuria while on Eliquis at home--Recent hospitalization with complicated UTI and Klebsiella
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
coreg--agree with stress dose steroids
diarrhea -- resolved--flagyl added 10/19--C. diff neg--rest of stool studies pending (low suspicion for infection)
chronic midodrine dependent hypotension (prior to admission?)--cont midodrine
neutropenia --possibly related to sepsis/infection but now resolved--unclear if admission blood work wasn't lab error....
choledocholithiasis --on CT also on previous imaging with MRI--He has no abdominal pain pain/normal LFTs lipase--await US results
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
within the more anterior duplicated vein--No evidence for deep venous thrombosis from the common femoral through the popliteal vein--The right peroneal vein and the proximal greater saphenous vein also appear patent--repeat US neg for DVT--cont
eliquis when able to restart
ASCVD/HX CVA/Essential HTN/HLD--cont meds as able--ECHO with preserved LVEF and no valvular abnormalities-Continue aspirin-Hold Coreg with concern for evolving sepsis and hypotension.
Inflammatory myopathy--Also has been worked up for PMR, prior workup not consistent with myasthenia gravis--agree with stress dose steroids and holding outpt prednisone dosing
GERD continue PPI.
Depression continue escitalopram
Code status --Full code.
DVT prophylaxis hold Eliquis as above.
Total Critical Care Time 31 minutes. I was immediately available to the patient and staff. I personally examined, reviewed labs, diagnostic images/reports, interpretations, treatment plans, discussed patient care with other providers and family
or caregivers (if patient is unable to make decisions), entered orders as appropriate and documented the medical record.
Anticipated Discharge: > 48 hours
Subjective/Interval History
-
Date of Service: October 21, 2023
pt without c/o today--wondering about results of this AM's US
Objective Data
-
Labs:
Laboratory Results
10/21/23
03:59
WBC 25.9 H
Hgb 10.9 L
Hct 31.9 L
Plt Count 124 L
Sodium 134 L
Potassium 4.7
Chloride 106
Carbon Dioxide 24
BUN 33 H
Creatinine 1.1
Glucose 96
Calcium 8.3 L
Total Bilirubin 0.5
AST 41
ALT 23
Alkaline Phosphatase 60
Vital Signs:
max temp for 24 hours
10/20/23
08:44
Temp 102.5 F H
Vital Signs
Temp Pulse Resp BP Pulse Ox
98.6 F 77 22 109/64 98
10/21/23 04:05 10/21/23 06:15 10/21/23 06:15 10/21/23 06:07 10/21/23 06:15
I&O
10/20/23 10/21/23 10/22/23
06:59 06:59 06:59
Intake Total 3412.5 / 3412.5
Output Total 1575 / 1575
Balance 1837.5 / 1836.5
Review of Systems
-
All other systems: Reviewed and negative
Physical Exam
-
General: Appears Chronically Ill
HEENT: Normocephalic and Atraumatic; Negative Oxygen
Respiratory: Clear to Auscultation; Negative Wheezes or Rhonchi
Cardiac: Regular Rhythm and S1/S2; Negative Murmur
GI: Soft, Nontender, Nondistended and Normal Bowel Sounds
Musculoskeletal: No Clubbing, No Cyanosis and Other (bilateral LE edema left > right 4+ pitting)
Skin: Warm
Neuro: Awake and Alert
Psych: Calm
[2023-10-21] MEDS: STERILE WATER FOR INJECTION 10 ML IV ×2 (07:57→19:53)
[2023-10-21] MEDS: MAXIPIME 2000 MG IV ×2 (07:57→19:53)
[2023-10-21] MEDS: FOLVITE 1 MG PO (07:58)
[2023-10-21] MEDS: PROTONIX 40 MG PO (07:58)
[2023-10-21] MEDS: THERAGRAN 1 TABLET PO (07:58)
[2023-10-21] MEDS: VITAMIN B-12 2000 MCG PO (07:58)
[2023-10-21] MEDS: ProAmatine 5 MG PO ×3 (07:58→21:22)
[2023-10-21] MEDS: LEXAPRO 10 MG PO (07:58)
[2023-10-21] MEDS: ASPIR LOW (ENTERIC COATED) 81 MG PO (07:58)
[2023-10-21] MEDS: NSS 1000 IV (07:59)
--- NOTE | 2023-10-21 08:15 | PTCARENOTE ---
Received pt @ change of shift. Pt. AAOx3, denies pain. SR w 1st degree AVB and BBB on monitor. SpO2 97% on RA. Auscultated dim breath sounds throughout w crackles @ b/l bases. +BS, abd soft/round; previous inc of stool, not on this shift thus far.
Cont bladder, urine yellow; no hematuria noted. #18 R upper arm w NSS @ 80mL/hr; levo gtt tapered off and MAP remains >65. # 20 R AC patent, dressing c/d/i. Pt. instructed on how to report care concerns and call waller w in reach.
[2023-10-21 08:32] LABS: Lactic Acid 2.8 mmol/L (0.7-2.0)
--- NOTE | 2023-10-21 08:40 | W.PN.INTV ---
Today's Communication / Plan
Recommendations
Continue antibiotics with cefepime/Flagyl
Trend lactate
Resume home prednisone dose; recommend outpatient follow-up with rheumatology to discuss down titrating this dose
Monitor hematuria
Start Lovenox for DVT prophylaxis
MAP >65
SpO2 >90-94%
GI consult to evaluate for ERCP
Continue ICU level care
Assessment
-
Assessment: 77-year-old male with a PMHx of CVA, coronary artery disease, hypertension, GERD, CKD, PMR on chronic steroids with history of requiring IVIG, hypertension and hypercholesterolemia who presented from home due to continued bloody urine
for the last few days with episode of unresponsiveness for about 30 seconds. Patient recently hospitalized briefly from 09/17 - 09/20/2019 for who presented from [place] [facility] with syncope, suspected to be from Lasix and increased urine output with
dizziness and subsequent LOC. CT head was negative for acute pathology. Echo showed normal LV size with mild concentric LVH with no regional WMA. Patient was discharged back to [facility] on 09/20/2023 where he stayed until 10/05/2023. He did have
Klebsiella aerogenes bacteremia via urine culture on September 12, 2023, and prior urine culture from also showed Klebsiella aerogenes. He was doing well after being home from rehab however ever over the last day or so he has been having
worsening fatigue with chills and rigors. He also has been having hematuria which spontaneously cleared. Patient febrile to 102.5 �F in the ER, pulse rate 93, breathing at 22 breaths/min, BP 146/71 and saturating 96% on room air. Labs showed
leukopenia to 2, anemia to 11, thrombocytopenia to 148, lactic acidosis to 5.4, glucose 101, proBNP elevated at 1480, with urinalysis showing bloody clarity with negative nitrites and +2 leukocyte esterase, 26-30 urine WBC. Urine culture and blood
culture were collected. Also stool studies collected as he developed diarrhea in the ER. CXR showed no radiographic evidence of pneumonia or acute cardiopulmonary pathology, and CT abdomen/pelvis showed choledocholithiasis with a 5 mm calcified
gallstone within the distal CBD, with bilateral mild perinephric stranding without hydronephrosis. Patient given Tylenol, cefepime, Zofran and IVF with NS 0.9% x2L in the ER and started on Levophed due to persistent hypotension with SBP's in the
70�80s. Patient admitted to the ICU for further care with critical care services consulted for additional management/recommendations.
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
elevated LFTs, mitral regurgitation, vitamin D deficiency, history of adenomatous polyp, depression, cholelithiasis, PMR with suspected myasthenia gravis recently on pulse dose steroids and IVIG, left hip fracture s/p ORIF, history of UTI
Impression:
#Septic shock due to urinary tract infection vs choledocholithiasis in setting of hypovolemia - shock state resolved
#Hematuria
#Lactic acidosis due to above
#Acute respiratory failure with hypoxia on supplemental oxygen, likely due to sepsis with acute organ dysfunction
#History of Klebsiella aerogenes bacteremia due to UTI
#Anemia (mild)
#Thrombocytopenia (mild)
#History of PMR with suspected myasthenia gravis recently on pulse dose steroids and IVIG now on chronic prednisone at 20 mg daily
#History of cholelithiasis
#GERD
Plan:
- Continue broad-spectrum biotics with cefepime and on 10/19 added Flagyl for anaerobic coverage
- Follow-up blood culture species from 10/20/2023 which shows GNR in anaerobic/aerobic bottles
- RUQ ultrasound on 10/21/2023 shows choledocholithiasis without biliary ductal dilatation
- GI consult to eval for ERCP
- Continue to trend lactate level until <2mmol/L
- Maintain goal MAP>65
- Gave an additional 1 L of IVF with LR on 10/19 as his IVC collapsibility is 53% indicating that he would respond to additional IVF
- Started stress dose steroids on 10/19, however now that he is off of Levophed, resume home dose of prednisone
- Follow up urine Cx - growing GNR (100k CFU/mL)
- Hold home PO anti-hypertensives until he clinically improves and is off vasopressors for at least 24 hours
- He is prescribed midodrine at home - continue this
- Maintain SpO2 >90-94%
- prn nebulized bronchodilators
- Trend Hb and transfuse to keep Hb>7g/dL, plt>20k
- Replete electrolytes with K>4, Mg>2
- Maintain euglycemia with goal BG 140-180
- Incentive spirometer encouraged
- DVT ppx -since patient's hematuria has resolved, restart Lovenox and if Hb stable by tomorrow then will restart Eliquis at that time
Continue ICU level care for this critically ill patient given rising lactate with concern for continued severe sepsis with risk for continued need for vasopressors.
Total time spent today was 75 minutes for this encounter. Time includes reviewing laboratory test/imaging results, reviewing pertinent medical records, obtaining and reviewing medical history, performing an appropriate exam, ordering medications,
tests and procedures. Time also includes documentation of this encounter, coordinating patient care and communicating with other healthcare professionals. Total time does not include separately billed tests performed on this date of service.
Data:
Transthoracic echocardiogram 09/20/2023:
Normal left ventricular chamber size. Mild concentric left ventricular
hypertrophy. Normal regional wall motion. Normal left ventricular systolic
function. Left ventricular ejection fraction is 55-60%. Normal diastolic
function.
Mildly dilated aortic root. Sinuses of Valsalva -3.9 cm.
Since echo August 2018, there is no significant change. Aortic root may be
mildly dilated at 3.9 cm.
RUQ ultrasound 10/21/2023:
Choledocholithiasis without biliary ductal dilatation. A few tiny stones are suspected in the distal common bile duct, which given the absence of biliary ductal dilatation, are likely nonobstructing. MRCP could be performed for definitive evaluation.
Cholelithiasis without sonographic evidence of acute cholecystitis.
Subjective Dataa
Subjective Data
Date of Service:
Date of Service: October 21, 2023
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
Subjective:
Patient seen and evaluated this morning. Patient sitting in chair, in no acute distress. Hematuria has resolved. Patient off of vasopressors. BP 104/64, heart rate 81 and saturating 98% on room air. He denies CP, SOB, abd pain, N/V/f/c.
Review of Systems
General: Other (Negative unless mentioned above)
Objective Data
Data Reviewed
Vital Signs / I&O / Oxygen:
Vital Signs
Temp Pulse Resp BP Pulse Ox
97.9 F 85 19 100/62 97
10/21/23 07:54 10/21/23 09:03 10/21/23 09:03 10/21/23 09:03 10/21/23 09:03
Intake and Output
10/20/23 10/21/23 10/22/23
06:59 06:59 06:59
Intake Total 3412.5 / 3520.0 667.5 / 667.5
Output Total 1575 / 1575 400 / 400
Balance 1837.5 / 1945.0 267.5 / 267.5
SaO2 97
Nasal Cannula flow liters per 2
minute
Physical Exam
General: Respiratory Distress (Negative) and Comfortable
HEENT: Normocephalic and Anicteric
Cardiovascular: S1-S2 and Peripheral Edema (+2 lower extremity pitting edema bilaterally)
Respiratory: Wheeze (Negative), Crackles (Bibasilar), Rhonchi (Negative) and Non-Labored Respirations
GI: Soft, Non Distended, Tender (Mild RUQ tenderness to deep palpation) and Normal Bowel Sounds
Neurology: Awake, Alert and Tremors (Negative)
Skin: Warm, Dry and Jaundice (Negative)
Labs/Micro/Reports
Lab Data
10/21/23 03:59
10/21/23 03:59
Laboratory Results
10/20/23
17:03
PT 17.2 H
INR 1.40
APTT 34.7
Microbiology
10/20/23 09:20 Blood/Venous Blood Culture - Preliminary
Positive culture in progress
10/20/23 09:20 Blood/Venous Gram Stain - Final
10/20/23 11:00 Feces/Stool C. difficile GDH Antigen & Toxins - Final
Negative for toxigenic C.difficile
--- NOTE | 2023-10-21 09:45 | CM ---
CM following re: discharge planning.
Discussed in Rounds, reviewed pt's chart, met with pt.
Pt is a 77 year old male, admitted with primary dx of Sepsis.
Pt reports he lives with spouse in a 2SH, 3 steps to enter, has 1st floor set up, has supportive daughter. Pt reports he has a hospital bed ambulates with a walker and has a wheelchair. Pt reports he was discharged from [facility] 2 sweks ago
and went [facility] with [facility] and currently active with [facility]. Pt reports he was at [facility] in the past. Pt expressed his desire to return [facility] home at discharge with VN and family support. VN liaison is aware of pt's admission to .
PT and OT will evaluate the pt to determine a level of care at discharge.
PCP: Geneva James
Pharmacy: [facility]
D/C plan: pt's desire to return back home with resumptions of [facility] and family support.
CM will follow with discharge plan updates as hospitalization progresses
--- NOTE | 2023-10-21 10:23 | W.PN.ID1 ---
Date of Service
Date of Service: October 21, 2023
Today's Communication
Continue antibiotics
Assessment / Plan
Clinical sepsis
Bacteremia with gram-negative rods
Hypotension; now off pressors.
Leukocytosis
Suspected urinary tract infection (complicated)
CAD
ASCVD
Inflammatory myopathy
CVA (2017
GERD
HTN
Dyslipidemia
CKD stage III
Cholelithiasis
Recommendations:
Continue with empiric cefepime (d#2)
Blood cultures and urine culture currently pending.
Follow white count and temperature curve.
Further recommendations as additional data is returned.
����������������������������������������������������������
Chief Complaint
-: Clinical Sepsis
Subjective / Review of Systems
Patient seen and examined. Reports feeling somewhat improved today. Denies fevers or chills. Denies dysuria.
Vital Signs / Physical Exam
Vital Signs
Vital Signs
Temp Pulse Resp BP Pulse Ox
97.9 F 85 19 100/62 97
10/21/23 07:54 10/21/23 09:03 10/21/23 09:03 10/21/23 09:03 10/21/23 09:03
Physical Exam
Constitutional: No Acute Distress, Comfortable, Chronically Ill and Non-toxic
Head: Normocephalic
Eyes: No Conjunctival Hemorrhage and Sclera Anicteric
Cardiovascular: S1/S2; Negative S3/S4
Pulmonary: Clear and Non Labored; Negative Wheezes or Rales
Gastrointestinal: Soft, Non Tender, Non Distended and Normal Bowel Sounds
Extremities: Edema (2+), Cyanosis and Erythema
Neurological: Awake and Alert
Psychological: Calm
Objective Data
Lab Data
Lab Results
10/21/23 03:59
10/21/23 03:59
PT 17.2 Sec (11.4-14.6) H 10/20/23 17:03
INR 1.40 10/20/23 17:03
APTT 34.7 Sec (23.4-35.0) 10/20/23 17:03
Estimated Creat Clear 62 ml/min 10/21/23 03:59
Lactic Acid 2.8 mmol/L (0.7-2.0) H 10/21/23 08:09
Total Bilirubin 0.5 mg/dl (0.2-1.3) 10/21/23 03:59
AST 41 U/L (17-59) 10/21/23 03:59
ALT 23 U/L (0-50) 10/21/23 03:59
Alkaline Phosphatase 60 U/L (38-126) 10/21/23 03:59
Most recent labs reviewed.
Micro Results:
10/20/23 08:22 Urine Culture - Preliminary
Urine Gram negative bacilli
10/20/23 11:00 Salmonella/Shigella Culture - Pending
Feces/Stool Campylobacter Culture - Pending
Shiga Toxin Test - Final
No E. coli Shiga Toxin 1 or 2 detected.
10/20/23 09:20 Blood Culture - Preliminary
Blood/Venous Positive for GNR's (2 of 2 bottles); culture in progress
Gram Stain - Final
10/20/23 11:00 C. difficile GDH Antigen & Toxins - Final
Feces/Stool Negative for toxigenic C.difficile
Imaging:
10/20/2023 CT abdomen/pelvis without contrast: Choledocholithiasis noted. A 5 mm calcified gallstone within the distal common bile duct with additional calcified gallstones noted within the gallbladder lumen and with mild gallbladder distention.
Mildly thickened bladder with foci of gas seen anteriorly. No evidence for hydronephrosis or nephrolithiasis. Please see full dictation for additional detail. Film personally viewed.
[2023-10-21] MEDS: FLAGYL 500 MG PO ×2 (13:54→21:22)
--- NOTE | 2023-10-21 14:26 | PTCARENOTE ---
Pt. assisted x 1 w RW OOB to chair @ 0900; generalized weakness; gait slightly unsteady. Remained in chair until 1400; tolerated chair position. Assisted back to bed. Levo remains off and MAP >65. Also noted L leg appears more red than this AM.
Palpable pedal pulse. LE US from earlier this AM negative. Dr. Ponce made aware of above findings. Pt.'s call waller remains w in reach.
[2023-10-21 14:47] LABS: Lactic Acid 4.1 mmol/L (0.7-2.0)
--- NOTE | 2023-10-21 16:13 | CON.GI ---
Addendum entered and electronically signed by Wyatt Alba MD 10/21/23 18:17:
I saw and examined the patient.
The DRAFTER AUTOMOTIVE DESIGN or PA's note was reviewed and I agree with the note.
Comment: 77yo presents with fever, chills following recent trip to rehab for statin myopathy and discharged 10/04. CT showed choledocholithiasis 5mm GS in distal CBD and GB. US confirmed choledocholithiasis without biliary ductal dilation,. This
has been know in the past (MRI in May showed choledocholithiasis in distal CBD, mild biliary dilation cholelithiasis), but ERCP postponed since he was asymptomatic and had other medical issues taking priority. He denies abd pain. BCx and UCx
positive for GN bacilli. LFTs normal. Admitted to ICU on abx and pressors, which were weaned off this am
REC:
Cont abx
Urine may be primary source of infxn given GNR in blood and urine, await ID
LFTs are normal and no abd pain
He needs ERCP, timing to be determined by clinical course. Follow abd exam, LFTs, response to abx, ID of organisms from urine and blood
Will follow
Original Note:
Consultation
-
Date/Time Consultation Requested: 10/21/23 1530
Date/Time Consultation Performed: 10/21/23 1615
Requesting Provider: Dallas Ponce MD
Performing Provider: KAREN Ruth, Genesis Cohen MD
Reason for Consultation: choledocholithiasis
Medical History
Chief Complaint / HPI
Chief Complaint: chills/fever
History of Present Illness:
Pt is a 77yo presents with hx ASCVD, HTN, CKD stage III, DVT on Eliquis, hip ORIF 06/2023, inflammatory myopathy, myositis, vs necrotic myopathy with with steroid use with rehab stay. He was sent to 09/11 with weakness/sepsis with concern for
klebsiella bacteremia/UTI. He was treated with antibiotics and returned to rehab 09/16 with discharged 10/04. He returned to ER 10/19 with shaking chills. He has blood noted in urine and on admission noted with gram neg bacilli on blood and urine
culture. He was noted with elevated lactate up to 6.2 then down to 2.7 and further rise today to 4.1. LFT's noted normal but required pressors on admission for hypotension. Since admission pt had CT and US with noted choledocholithiasis asked to
eval for ERCP. In reviewing chart pt also with know CBD stone on MRI in May. Pt has been scheduled [address] Ybarra but held with other medical problems.
Pt admits to some nausea and diarrhea last week. He also admits to blood in urine. He otherwise denies dysphagia, GERD, vomiting, abdominal pain, constipation, blood or black in stool.
Past Medical History
Past Medical History: CAD, CVA, GERD, HTN, Hypercholesterolemia, Renal Failure (CKD) and Other (vitamin B12, vitamin D, adenomatous polyps, celiac disease, cholelithiasis, inflammatory myopathy,- PMR with suspected Myasthenia gravis, lumbar DDD,
anemia, thrombocytopenia, DVT )
Past Surgical History: Orthopedic (left hip ORIF 06/2023) and Other (Hernia, cataract surgery, bilateral cataract surgery, left leg stent)
Social History
Tobacco: Non-Smoker
Alcohol: None
Drug: None
Personal:
Living: With Family
Employment: Retired
Family History
Family History: Other (father with lung CA)
Allergies / Home Medications
Allergy/AdvReac Type Severity Reaction Status Date / Time
gluten Allergy Severe Celiac Verified 09/17/23 13:03
disease
�Medication �Instructions �Recorded
aspirin 81 mg tablet,delayed 81 mg PO DAILY Blood Clot 08/13/23
release Prevention/Tx
therapeutic multivitamin 1 tab PO DAILY Supplement 09/18/23
apixaban 5 mg tablet (Eliquis) 5 mg PO BID DVT 30 days #60 tabs 10/05/23
carvedilol 3.125 mg tablet 3.125 mg PO BID Blood pressure 30 10/05/23
days #60 tabs
folic acid 1 mg tablet 1 mg PO DAILY Supplement 30 days 10/05/23
#30 tabs
pantoprazole 40 mg tablet,delayed 40 mg PO DAILY GERD 30 days #30 10/05/23
release tabs
cyanocobalamin (vitamin B-12) 2,000 mcg PO DAILY supplement 10/20/23
1,000 mcg tablet
escitalopram oxalate 10 mg tablet 10 mg PO DAILY Depression 10/20/23
midodrine 5 mg tablet 5 mg PO TID orthostasis - low 10/20/23
blood pressure
prednisone 20 mg tablet 20 mg PO DAILY MYOPATHY 10/20/23
Review of Systems
-
History Source: Patient
Constitutional: Reports Fever (10/19 102.5 on admission )
EENT: Reports No Symptoms
Respiratory: Reports No Symptoms
Cardiac: Reports No Symptoms
Abdomen/GI: Reports Nausea and Diarrhea (last week )
: Reports Urgency and Bleeding
Musculoskeletal: Reports Edema (left leg ) and Other (some joint pain with left leg swelling )
Skin: Reports No Symptoms
Neurological: Reports Weakness
Endocrine: Reports No Symptoms
Vital Signs
Temp Pulse Resp BP Pulse Ox
97.6 F 82 19 102/66 99
10/21/23 15:12 10/21/23 14:30 10/21/23 14:30 10/21/23 14:30 10/21/23 14:30
Physical Exam
Exam
General: Well Developed, Well Nourished and No Apparent Distress
HEENT: Normocephalic and Anicteric
Respiratory: Clear
Cardiac: Regular Rhythm
GI: Soft, Non Tender, Non Distended and Normal Bowel Sounds
Musculoskeletal: No Clubbing and No Cyanosis
Skin: Warm
Neuro: Awake, Alert and AO x 3
Psych: Calm
Results
WBC 25.9 10^3/uL (4.8-10.8) H 10/21/23 03:59
Hgb 10.9 g/dL (13.0-18.0) L 10/21/23 03:59
Hct 31.9 % (39.0-52.0) L 10/21/23 03:59
MCV 104.2 fL (80.0-94.0) H 10/21/23 03:59
Plt Count 124 10^3/uL (130-400) L 10/21/23 03:59
Absolute Neuts (auto) 1.5 10^3/uL (1.4-6.5) 10/20/23 08:22
PT 17.2 Sec (11.4-14.6) H 10/20/23 17:03
INR 1.40 10/20/23 17:03
APTT 34.7 Sec (23.4-35.0) 10/20/23 17:03
Sodium 134 mmol/L (135-145) L 10/21/23 03:59
Potassium 4.7 mmol/L (3.5-5.1) 10/21/23 03:59
Chloride 106 mmol/L (98-107) 10/21/23 03:59
Carbon Dioxide 24 mmol/L (22-30) 10/21/23 03:59
BUN 33 mg/dl (9-20) H 10/21/23 03:59
Creatinine 1.1 mg/dL (0.7-1.3) 10/21/23 03:59
Calcium 8.3 mg/dl (8.4-10.2) L 10/21/23 03:59
Total Bilirubin 0.5 mg/dl (0.2-1.3) 10/21/23 03:59
AST 41 U/L (17-59) 10/21/23 03:59
ALT 23 U/L (0-50) 10/21/23 03:59
Alkaline Phosphatase 60 U/L (38-126) 10/21/23 03:59
Lipase 81 U/L (23-300) 10/20/23 08:22
Diagnostic Image Results:
10/20/23 CT Abd/pel Without Iv Or Oral
1. Choledocholithiasis. 5 mm calcified gallstone within the distal common bile duct. Additional calcified gallstones noted within the gallbladder lumen with mild gallbladder distention.
2. Mildly thickened bladder with foci of gas seen anteriorly. Findings may represent cystitis. Correlation with urinalysis recommended.
3. No evidence for hydronephrosis or nephrolithiasis. Mild bilateral perinephric stranding.
4. Subcutaneous stranding/edema noted within both flanks and also within the proximal left thigh.
5. Additional findings above.
10/21/23 US Abdomen Limited
Choledocholithiasis without biliary ductal dilatation. A few tiny stones are suspected in the distal common bile duct, which given the absence of biliary ductal dilatation, are likely nonobstructing. MRCP could be performed for definitive evaluation.
Cholelithiasis without sonographic evidence of acute cholecystitis.
Prior GI Procedures:
Colonoscopy: 2015- [facility] - Two 2 to 7 mm polyps in the distal ascending colon. Biopsied.
- The examined portion of the ileum was normal. bx AP/HP polyps
Assessment / Plan
-
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 He was sent to 09/11 with weakness/sepsis with concern for klebsiella
bacteremia/UTI. He was treated with antibiotics and returned to rehab 09/16 with discharged 10/04. He returned to ER 10/19 with shaking chills. He has blood noted in urine and on admission noted with gram neg bacilli on blood and urine culture. He was
noted with elevated lactate up to 6.2 then down to 2.7 and further rise today to 4.1. LFT's noted normal but required pressors on admission for hypotension. Since admission pt had CT and US with noted choledocholithiasis asked to eval for ERCP.
In reviewing chart pt also with know CBD stone on MRI in May. Pt has been scheduled 3 times for ERCP with Dr. Ybarra but held with other medical problems.
-sepsis with elevated lactate, leukocytosis, hypotension requiring pressor on admission
-gram neg bacilli + blood and urine
-recent klebsiella UTI/bacteremia 09/12/23
-persistent choledocholithiasis with normal LFT's
-leukocytosis
-hx DVT on Eliquis
thrombocytopenia
other med problems:
hip ORIF 06/2023
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
CVA
CAD
ASCVD
CVA
GERD
HTN
Dyslipidemia
CKD stage III
Cholelithiasis
PLAN:
etiology of bacteremia related to UTI with + culture, choledocholithiasis (though no abdominal pain or LFT elevation) vs other
choledocholithiasis has been chronic for months 3 attempts at ERCP last few months cancelled with other medical issues
cont abx for UTI/bacteremia -- ID following
will need eventual ERCP - timing to be determined-- IP vs OP
currently off pressors
trend LFT's
NPO in AM in case worsening status and need to consider sooner
eliquis hold last dose
-
-
Thank you for consultation and allowing me to participate in the patient's care. Please call the managing partner digital content marketing [place] [facility] physician during the after hours with any questions or concerns.
--- NOTE | 2023-10-21 16:19 | VNURNOTE ---
Chart reviewed. Patient is current with [facility]. Resumption referral in saved status in [facility]. Will monitor hospital course for discharge plans.
[2023-10-21] MEDS: LOVENOX 40 MG SC (17:10)
[2023-10-21] MEDS: LR 1000 IV (17:11)
--- NOTE | 2023-10-21 17:21 | PTCARENOTE ---
Dr. Ponce notified of critically elevated lactic- 4.1. Further orders received and IVF restarted per orders. GI assistant professor of mathematics'd and to bedside; plan for ERCP in AM. Pt. and (via phone) updated on plan of care. Call waller remains w in reach.
--- NOTE | 2023-10-21 20:00 | PTCARENOTE ---
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 RA IV x 2 WNL- IVF infusing per work list. voiding clear yellow urine. POC discussed, call sridhar w/pt.
[2023-10-21 21:49] LABS: Lactic Acid 2.2 mmol/L (0.7-2.0)
[2023-10-22] VITALS (21 sets, daily range): BP systolic 95–155; BP diastolic 55–89; PULSE 78; O2SAT 94; BMI 26.7
[2023-10-22] MEDS: LR 1000 IV (01:39)
--- NOTE | 2023-10-22 03:00 | PTCARENOTE ---
no changes in pt assessment.
[2023-10-22 06:09] LABS: Hematocrit 29.2 % (39.0-52.0); Mean Corp Hgb Conc. 34.2 g/dL (33.0-37.0); Mean Corpuscular Hgb 35.1 pg (27.0-31.0); Mean Corpuscular Volume 102.5 fL (80.0-94.0); Mean Platelet Volume 9.8 fL (7.4-10.4); Platelet Count 99 10^3/uL (130-400); Red Blood Cell Count 2.85 10^6/uL (4.70-6.10); Red Cell Dist. Width 16.3 % (11.5-14.5)
[2023-10-22 06:20] LABS: Lactic Acid 1.2 mmol/L (0.7-2.0)
[2023-10-22 06:47] LABS: ALT (SGPT) 21 U/L (0-50); AST (SGOT) 32 U/L (17-59); Albumin 2.1 g/dl (3.5-5.0); Alkaline Phosphatase 69 U/L (38-126); Blood Urea Nitrogen 36 mg/dl (9-20); Calcium 8.2 mg/dl (8.4-10.2); Carbon Dioxide 24 mmol/L (22-30); Chloride 108 mmol/L (98-107); Estimated Creatinine Clearance 75 ml/min; Glucose 58 mg/dl (70-99); Magnesium 1.7 mg/dl (1.6-2.3); Potassium 3.5 mmol/L (3.5-5.1); Sodium 133 mmol/L (135-145); Total Bilirubin 0.5 mg/dl (0.2-1.3); Total Protein 4.3 g/dl (6.3-8.2); eGFR > 60.00
[2023-10-22 07:02] LABS: C-Reactive Protein > 270.00 mg/L (0.0-10.00)
--- NOTE | 2023-10-22 07:38 | W.PN.HOSP.TC ---
Today's Communication/Plan
-
transfer out of ICU to IMU
see A/P
Assessment / Plan
Assessment / Plan
A/P:
# Septic shock with resolved lactic acidosis, source likely complicated UTI with bacteremia
# h/o complicated UTI and Klebsiella bacteremia
Off Levophed
Follow urine Cx, follow blood culture (until negative)
CT AP noted cystitis, Mild bilateral perinephric stranding. No hydronephrosis or nephrolithiasis.
Cont cefepime, flagyl
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
Cont bladder scan (no retention noted)
Holding PHYSICAL THERAPIST Coreg
ID/oriental rug repairer on board
# hematuria, resolved
resume PHYSICAL THERAPIST Eliquis
# diarrhea, resolved
flagyl added 10/19
C. diff neg, rest of stool studies pending (low suspicion for infection)
# neutropenia POA, now leucocytosis due to steroid
# choledocholithiasis on CT AP
No abdominal pain pain
normal LFTs/ lipase
Abd US noted choledocholithiasis without biliary ductal dilatation. A few tiny stones are suspected in the distal common bile duct, which given the absence of biliary ductal dilatation, are likely nonobstructing.
GI on board, recc ERCP, timing to be determined by clinical course.
Follow abd exam, LFTs
# h/o Lower extremity DVT
# lymphedema with chronically swollen legs
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
repeat US 10/19 showed no DVT
resume PHYSICAL THERAPIST Eliquis
# ASCVD
# HX CVA
# Essential HTN
# HLD
Cont meds as able
ECHO with preserved LVEF and no valvular abnormalities
Continue aspirin
Hold PHYSICAL THERAPIST Coreg
# Inflammatory myopathy, also has been worked up for PMR
# prior workup not consistent with myasthenia gravis
s/p stress dose steroids, resumed outpt prednisone 20 mg daily
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
cont midodrine
# GERD continue PPI.
# Depression continue escitalopram
Code status, Full code.
DVT prophylaxis resume PHYSICAL THERAPIST Eliquis
PT OT eval for dispo
DW RN
DW GI team
Anticipated Discharge: > 48 hours
Subjective/Interval History
-
Date of Service: October 22, 2023
Objective Data
-
Labs:
Laboratory Results
10/22/23
05:56
WBC 25.0 H
Hgb 10.0 L
Hct 29.2 L
Plt Count 99 L D
Sodium 133 L
Potassium 3.5 D
Chloride 108 H
Carbon Dioxide 24
BUN 36 H
Creatinine 0.9
Glucose 58 L
Calcium 8.2 L
Total Bilirubin 0.5
AST 32
ALT 21
Alkaline Phosphatase 69
Vital Signs:
Vital Signs
Temp Pulse Resp BP Pulse Ox
37.2 C 92 21 152/89 99
10/22/23 04:30 10/22/23 06:00 10/22/23 06:00 10/22/23 06:00 10/22/23 05:45
I&O
10/21/23 10/22/23 10/23/23
06:59 06:59 06:59
Intake Total 3412.5 / 3520.0 2987.5 / 2987.5
Output Total 1575 / 1575 1725 / 1725
Balance 1837.5 / 1945.0 1262.5 / 1262.5
Review of Systems
-
All other systems: Reviewed and negative
Physical Exam
-
General: Well Developed, Well Nourished, No Apparent Distress, Comfortable and Appears Chronically Ill
HEENT: Normocephalic and Atraumatic; Negative Oxygen
Respiratory: Clear to Auscultation and Non Labored Respirations; Negative Accessory Resp Muscle Use
Cardiac: Regular Rhythm and S1/S2; Negative Murmur
GI: Soft, Nontender, Nondistended and Normal Bowel Sounds; Negative Tender
Musculoskeletal: No Clubbing, No Cyanosis and Other (bilateral LE edema )
Skin: Warm
Neuro: Awake and Alert
Psych: Calm
Data Reviewed
-
CT Scan: Report Reviewed by me
Labs: Labs Reviewed by me
[2023-10-22 07:52] LABS: Segmented Neutrophils 56 % (42-75)
[2023-10-22 07:53] LABS: Absolute Neutrophils -Man Diff 23.2 10^3/uL (1.4-6.5); Band Neutrophils 37 % (0-3); Lymphocytes 2 % (20-51); Metamyelocytes 1 % (-); Monocytes 4 % (2-9)
[2023-10-22 07:55] LABS: Normal RBC Morphology Yes; Platelets Checked Yes; Total Cells Counted 100
[2023-10-22] MEDS: KCL 40 MEQ PO (08:02)
[2023-10-22] MEDS: ProAmatine 5 MG PO ×3 (08:03→21:24)
[2023-10-22] MEDS: ASPIR LOW (ENTERIC COATED) 81 MG PO (08:03)
[2023-10-22] MEDS: PROTONIX 40 MG PO (08:03)
[2023-10-22] MEDS: DELTASONE 20 MG PO (08:03)
[2023-10-22] MEDS: FOLVITE 1 MG PO (08:03)
[2023-10-22] MEDS: VITAMIN B-12 2000 MCG PO (08:03)
[2023-10-22] MEDS: LEXAPRO 10 MG PO (08:04)
[2023-10-22] MEDS: STERILE WATER FOR INJECTION 10 ML IV (08:04)
[2023-10-22] MEDS: MAXIPIME 2000 MG IV (08:04)
[2023-10-22] MEDS: THERAGRAN 1 TABLET PO (08:04)
[2023-10-22] MEDS: FLAGYL 500 MG PO ×3 (08:04→21:25)
--- NOTE | 2023-10-22 08:06 | W.PN.INTV ---
Today's Communication / Plan
Recommendations
ABx per ID
Resume home prednisone dose; recommend outpatient follow-up with rheumatology to discuss down titrating this dose
Monitor hematuria
Start therapeutic Lovenox for DVT prophylaxis and given Hx of RLE DVT on Eliquis
MAP >65
SpO2 >90-94%
GI consulted to evaluate for ERCP - likely will happen on 10/24 --> HOLD levenox that AM
Patient stable for transfer out of ICU to telemetry. Obstetrics/Gynecology Nurse/Pulmonary service will now sign off. Please reconsult if there are any additional questions/concerns, or if patient's respiratory status deteriorates.
Assessment
-
Assessment: 77-year-old male with a PMHx of CVA, coronary artery disease, hypertension, GERD, CKD, PMR on chronic steroids with history of requiring IVIG, hypertension and hypercholesterolemia who presented from home due to continued bloody urine
for the last few days with episode of unresponsiveness for about 30 seconds. Patient recently hospitalized briefly from 09/17 - 09/20/2019 for who presented from [place] [facility] rehab with syncope, suspected to be from Lasix and increased urine output with
dizziness and subsequent LOC. CT head was negative for acute pathology. Echo showed normal LV size with mild concentric LVH with no regional WMA. Patient was discharged back to [facility] on 09/20/2023 where he stayed until 10/05/2023. He did have
Klebsiella aerogenes bacteremia via urine culture on September 12, 2023, and prior urine culture from also showed Klebsiella aerogenes. He was doing well after being home from rehab however ever over the last day or so he has been having
worsening fatigue with chills and rigors. He also has been having hematuria which spontaneously cleared. Patient febrile to 102.5 �F in the ER, pulse rate 93, breathing at 22 breaths/min, BP 146/71 and saturating 96% on room air. Labs showed
leukopenia to 2, anemia to 11, thrombocytopenia to 148, lactic acidosis to 5.4, glucose 101, proBNP elevated at 1480, with urinalysis showing bloody clarity with negative nitrites and +2 leukocyte esterase, 26-30 urine WBC. Urine culture and blood
culture were collected. Also stool studies collected as he developed diarrhea in the ER. CXR showed no radiographic evidence of pneumonia or acute cardiopulmonary pathology, and CT abdomen/pelvis showed choledocholithiasis with a 5 mm calcified
gallstone within the distal CBD, with bilateral mild perinephric stranding without hydronephrosis. Patient given Tylenol, cefepime, Zofran and IVF with NS 0.9% x2L in the ER and started on Levophed due to persistent hypotension with SBP's in the
70�80s. Patient admitted to the ICU for further care with critical care services consulted for additional management/recommendations.
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
elevated LFTs, mitral regurgitation, vitamin D deficiency, history of adenomatous polyp, depression, cholelithiasis, PMR with suspected myasthenia gravis recently on pulse dose steroids and IVIG, left hip fracture s/p ORIF, history of UTI
Impression:
#Septic shock due to Klebsiella pneumonia urinary tract infection in setting of hypovolemia - shock state resolved since 10/20
#Choledocholithiasis
#Hematuria - resolved
#Lactic acidosis due to above - resolved
#Acute respiratory failure with hypoxia on supplemental oxygen, likely due to sepsis with acute organ dysfunction - hypoxia now resolved
#History of Klebsiella aerogenes bacteremia due to UTI
#Anemia (mild)
#Thrombocytopenia (mild)
#History of PMR with suspected myasthenia gravis recently on pulse dose steroids and IVIG now on chronic prednisone at 20 mg daily
#History of cholelithiasis
#GERD
#History of RLE DVT on Eliquis
Plan:
- Continue broad-spectrum biotics with cefepime and on 10/19 added Flagyl for anaerobic coverage
- Follow-up blood culture species from 10/20/2023 which shows GNR in anaerobic/aerobic bottles
- RUQ ultrasound on 10/21/2023 shows choledocholithiasis without biliary ductal dilatation
- GI consult to eval for ERCP - will likely happen this upcoming Wednesday after Eliquis washout
- Therapeutic Lovenox started given his Hx of RLE DVT on Eliquis
- If ERCP is happening this Wednesday (10/24), then hold lovenox dose that AM
- Lactate has normalized; no longer need to continue trending
- Maintain goal MAP>65
- Gave an additional 1 L of IVF with LR on 10/19 as his IVC collapsibility is 53% indicating that he would respond to additional IVF
- Started stress dose steroids on 10/19, however now that he is off of Levophed, resumed home dose of prednisone on 10/20
- Follow up urine Cx - growing GNR (100k CFU/mL)
- Hold home PO anti-hypertensives until he clinically improves and is off vasopressors for at least 24 hours
- He is prescribed midodrine at home - continue this
- Maintain SpO2 >90-94%
- prn nebulized bronchodilators
- Trend Hb and transfuse to keep Hb>7g/dL, plt>20k
- Replete electrolytes with K>4, Mg>2
- Maintain euglycemia with goal BG 140-180
- Incentive spirometer encouraged
- DVT ppx - since patient's hematuria has resolved, Eliquis was resumed, however in setting of upcoming ERCP this upcoming Wednesday, I will change NOAC to therapeutic LMWH; please hold therapeutic LMWH on morning of 10/24 if patient is still going for
ERCP at that time
Patient stable for transfer out of ICU to telemetry. Obstetrics/Gynecology Nurse/Pulmonary service will now sign off. Thank you for allowing us to be involved in the care of this patient. Please reconsult if there are any additional questions/concerns, or if
patient's respiratory status deteriorates.
Total time spent today was 35 minutes for this encounter. Time includes reviewing laboratory test/imaging results, reviewing pertinent medical records, obtaining and reviewing medical history, performing an appropriate exam, ordering medications,
tests and procedures. Time also includes documentation of this encounter, coordinating patient care and communicating with other healthcare professionals. Total time does not include separately billed tests performed on this date of service.
Data:
Transthoracic echocardiogram 09/20/2023:
Normal left ventricular chamber size. Mild concentric left ventricular
hypertrophy. Normal regional wall motion. Normal left ventricular systolic
function. Left ventricular ejection fraction is 55-60%. Normal diastolic
function.
Mildly dilated aortic root. Sinuses of Valsalva -3.9 cm.
Since echo August 2018, there is no significant change. Aortic root may be
mildly dilated at 3.9 cm.
RUQ ultrasound 10/21/2023:
Choledocholithiasis without biliary ductal dilatation. A few tiny stones are suspected in the distal common bile duct, which given the absence of biliary ductal dilatation, are likely nonobstructing. MRCP could be performed for definitive evaluation.
Cholelithiasis without sonographic evidence of acute cholecystitis.
Subjective Dataa
Subjective Data
Date of Service:
Date of Service: October 22, 2023
Chief Complaint: Obstetrics/Gynecology Nurse Follow Up
Subjective:
Seen and evaluated today at bedside. Remains off vasopressors since yesterday morning. BP 130/76, heart rate 72 and saturating 98% on room air. He feels tired overall without any chest pain, abdominal pain, nausea, vomiting, fevers or chills.
Review of Systems
General: Other (Negative unless mentioned above)
Objective Data
Data Reviewed
Vital Signs / I&O / Oxygen:
Vital Signs
Temp Pulse Resp BP Pulse Ox
98.9 F 92 21 152/89 99
10/22/23 04:30 10/22/23 06:00 10/22/23 06:00 10/22/23 06:00 10/22/23 05:45
Intake and Output
10/21/23 10/22/23 10/23/23
06:59 06:59 06:59
Intake Total 3412.5 / 3520.0 2987.5 / 2987.5
Output Total 1575 / 1575 1725 / 1725
Balance 1837.5 / 1945.0 1262.5 / 1262.5
SaO2 99
Nasal Cannula flow liters per 2
minute
Physical Exam
General: Respiratory Distress (Negative) and Comfortable
HEENT: Normocephalic and Anicteric
Cardiovascular: S1-S2 and Peripheral Edema (+3 lower extremity pitting edema bilaterally)
Respiratory: Wheeze (Negative), Crackles (Bibasilar), Rhonchi (Negative) and Non-Labored Respirations
GI: Soft, Non Distended, Tender (Mild RUQ tenderness to deep palpation) and Normal Bowel Sounds
Neurology: Awake, Alert and Tremors (Negative)
Skin: Warm, Dry and Jaundice (Negative)
Labs/Micro/Reports
Lab Data
10/22/23 05:56
10/22/23 05:56
Microbiology
10/20/23 08:22 Urine Urine Culture - Preliminary
Gram negative bacilli
10/20/23 09:20 Blood/Venous Blood Culture - Preliminary
Positive culture in progress
10/20/23 09:20 Blood/Venous Gram Stain - Final
10/20/23 11:00 Feces/Stool Salmonella/Shigella Culture - Preliminary
Culture in Progress
10/20/23 11:00 Feces/Stool Campylobacter Culture - Preliminary
Culture in Progress
10/20/23 11:00 Feces/Stool Shiga Toxin Test - Final
No E. coli Shiga Toxin 1 or 2 detected.
10/20/23 11:00 Feces/Stool C. difficile GDH Antigen & Toxins - Final
Negative for toxigenic C.difficile
[2023-10-22 08:57] LABS: Erythrocyte Sed Rate 68 mm/hour (0-20)
--- NOTE | 2023-10-22 09:00 | W.PN.GI.CBS2 ---
Addendum entered and electronically signed by Rosa Tavarez MD 10/22/23 18:17:
I saw and examined the patient.
The INSULATION CUTTER AND FORMER's note was reviewed and I agree with the note.
Comment: Urosepsis on antibiotics per ID. He does have choledocholithiasis but no cholangitis and LFTs are normal and no abdominal pain currently. Will need eventual ERCP consider prior to DC or as outpatient willcdiscuss with Dr. Ybarra on Wednesday.
He has been restarted on Eliquis.
Original Note:
Today's Communication / Plan
-
etiology of bacteremia related to UTI with + culture, choledocholithiasis (though no abdominal pain or LFT elevation) vs other
choledocholithiasis has been chronic for months 3 attempts at ERCP last few months cancelled with other medical issues
cont abx for UTI/bacteremia -- ID following
will need eventual ERCP - timing to be determined-- IP vs OP -- stable overnight without fever, pain or increase in LFT's consider prior to discharge next week vs OP
resume regular diet
currently remains off pressors
trend LFT's currently remains normal
trend platelets with some drop with sepsis
Eliquis resumed will need 48 hold prior to ERCP possibly early next we
Assessment / Plan
-
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 He was sent to 09/11 with weakness/sepsis with concern for klebsiella
bacteremia/UTI. He was treated with antibiotics and returned to rehab 09/16 with discharged 10/04. He returned to ER 10/19 with shaking chills. He has blood noted in urine and on admission noted with gram neg bacilli on blood and urine culture. He was
noted with elevated lactate up to 6.2 then down to 2.7 and further rise today to 4.1. LFT's noted normal but required pressors on admission for hypotension. Since admission pt had CT and US with noted choledocholithiasis asked to eval for ERCP.
In reviewing chart pt also with know CBD stone on MRI in May. Pt has been scheduled [address] Ybarra but held with other medical problems.
-sepsis with elevated lactate, leukocytosis, hypotension requiring pressor on admission
-gram neg bacilli + blood and urine
-recent klebsiella UTI/bacteremia 09/12/23
-persistent choledocholithiasis with normal LFT's no abdominal pain
-leukocytosis
-hx DVT on Eliquis
-thrombocytopenia
-elevated CRP
other med problems:
hip ORIF 06/2023
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
CVA
CAD
ASCVD
CVA
GERD
HTN
Dyslipidemia
CKD stage III
Cholelithiasis
PLAN:
etiology of bacteremia related to UTI with + culture, choledocholithiasis (though no abdominal pain or LFT elevation) vs other
choledocholithiasis has been chronic for months 3 attempts at ERCP last few months cancelled with other medical issues
cont abx for UTI/bacteremia -- ID following
will need eventual ERCP - timing to be determined-- IP vs OP -- stable overnight without fever, pain or increase in LFT's consider prior to discharge next week vs OP
resume regular diet
currently remains off pressors
trend LFT's currently remains normal
trend platelets with some drop with sepsis
Eliquis resumed will need 48 hold prior to ERCP possibly early next week
Subjective
Subjective
Date of Service: October 22, 2023
still with no abdominal pain, LFT remain normal no fever overnight
Objective
Data Reviewed
Laboratory Data:
Laboratory Results
10/22/23 05:56
10/22/23 05:56
Laboratory Results
PT 17.2 Sec (11.4-14.6) H 10/20/23 17:03
INR 1.40 10/20/23 17:03
APTT 34.7 Sec (23.4-35.0) 10/20/23 17:03
Phosphorus 4.2 mg/dl (2.5-4.5) 10/21/23 03:59
Magnesium 1.7 mg/dl (1.6-2.3) 10/22/23 05:56
Total Bilirubin 0.5 mg/dl (0.2-1.3) 10/22/23 05:56
AST 32 U/L (17-59) 10/22/23 05:56
ALT 21 U/L (0-50) 10/22/23 05:56
Alkaline Phosphatase 69 U/L (38-126) 10/22/23 05:56
Lipase 81 U/L (23-300) 10/20/23 08:22
Vital Signs and I&O:
Vital Signs
Temp Pulse Resp BP Pulse Ox
98.4 F 92 21 152/89 98
10/22/23 08:00 10/22/23 06:00 10/22/23 06:00 10/22/23 06:00 10/22/23 08:00
I&O
10/21/23 10/22/23 10/23/23
06:59 06:59 06:59
Intake Total 3412.5 / 3520.0 2987.5 / 3107.5 240 / 240
Output Total 1575 / 1575 1725 / 1725 250 / 250
Balance 1837.5 / 1945.0 1262.5 / 1382.5 -10 / -10
Physical Exam
Physical Exam
HEENT: Anicteric and Moist mucous membranes
Cardiology: Normal Sinus Rhythm
Pulmonary: Clear
GI: Soft, Non Distended and Non Tender
Extremities: Edema (left greater than right -- chronic per patient )
Neuro: Non Focal
--- NOTE | 2023-10-22 09:31 | PTCARENOTE ---
manager enrollment, pt aaox3, SR HR 70-80s, RA Sat 98%. RA IV x 2 WNL- IVF stopped. voiding clear yellow urine. POC discussed, call sridhar w/pt. Tolerating reg diet with no plans for ERCP today.
[2023-10-22] MEDS: ELIQUIS 5 MG PO (10:00)
[2023-10-22 11:54] LABS: Glucose - Point of Care 106 mg/dl (70-99)
--- NOTE | 2023-10-22 12:03 | W.PN.ID1 ---
Date of Service
Date of Service: October 22, 2023
Today's Communication
Narrow abx to ceftriaxone.
Assessment / Plan
Clinical sepsis
Bacteremia with Klebsiella pneumoniae
Hypotension; now off pressors.
Leukocytosis -stable
Suspected urinary tract infection (complicated)
CAD
ASCVD
Inflammatory myopathy
CVA (2018
GERD
HTN
Dyslipidemia
CKD stage III
Cholelithiasis
Recommendations:
Narrow cefepime to ceftriaxone (d3 abx)
Repeat blood cx x 1.
Follow white count
����������������������������������������������������������
Chief Complaint
-: Clinical Sepsis
Subjective / Review of Systems
Feeling better today
Vital Signs / Physical Exam
Vital Signs
Vital Signs
Temp Pulse Resp BP Pulse Ox
98.4 F 75 13 155/64 98
10/22/23 08:00 10/22/23 08:45 10/22/23 08:45 10/22/23 08:00 10/22/23 08:45
Physical Exam
Constitutional: No Acute Distress
Pulmonary: Clear
Gastrointestinal: Soft, Non Tender and Non Distended
Genito-Urinary: Negative CVA Tenderness
Extremities: Edema (RLE 3+, LLE 2+)
Neurological: AO x 3
Objective Data
Lab Data
Lab Results
10/22/23 05:56
10/22/23 05:56
ESR 68 mm/hour (0-20) H 10/22/23 05:56
PT 17.2 Sec (11.4-14.6) H 10/20/23 17:03
INR 1.40 10/20/23 17:03
APTT 34.7 Sec (23.4-35.0) 10/20/23 17:03
Estimated Creat Clear 75 ml/min 10/22/23 05:56
Lactic Acid 1.2 mmol/L (0.7-2.0) 10/22/23 05:56
Total Bilirubin 0.5 mg/dl (0.2-1.3) 10/22/23 05:56
AST 32 U/L (17-59) 10/22/23 05:56
ALT 21 U/L (0-50) 10/22/23 05:56
Alkaline Phosphatase 69 U/L (38-126) 10/22/23 05:56
C-Reactive Protein > 270.00 mg/L (0.0-10.00) H 10/22/23 05:56
Most recent labs reviewed.
Micro Results:
10/20/23 09:20 Blood Culture - Preliminary
Blood/Venous Klebsiella pneumoniae
Gram Stain - Final
10/20/23 08:22 Urine Culture - Final
Urine Klebsiella pneumoniae
10/20/23 11:00 Salmonella/Shigella Culture - Preliminary
Feces/Stool Culture in Progress
Campylobacter Culture - Preliminary
Culture in Progress
Shiga Toxin Test - Final
No E. coli Shiga Toxin 1 or 2 detected.
10/20/23 11:00 C. difficile GDH Antigen & Toxins - Final
Feces/Stool Negative for toxigenic C.difficile
Imaging:
10/20/2023 CT abdomen/pelvis without contrast: Choledocholithiasis noted. A 5 mm calcified gallstone within the distal common bile duct with additional calcified gallstones noted within the gallbladder lumen and with mild gallbladder distention.
Mildly thickened bladder with foci of gas seen anteriorly. No evidence for hydronephrosis or nephrolithiasis. Please see full dictation for additional detail. Film personally viewed.
[2023-10-22] MEDS: ROCEPHIN 2000 MG IV (13:05)
[2023-10-22] MEDS: LOVENOX 90 MG SC (13:05)
[2023-10-22] MEDS: STERILE WATER FOR INJECTION 20 ML IV (13:06)
--- NOTE | 2023-10-22 14:25 | CM ---
CM following re: discharge planning.
Reviewed pt's chart, met with pt.
PT and OT evaluations noted - SNF level of acre recommended. CM discussed it with the pt and pt strongly and politely declined SNF level of care and he requested to return back home with [facility]. pt stated his spouse works from home and she will help
as needed.
D/c plan: home with [facility] and family support. Spouse to transport at discharge.
CM will follow with discharge plan updates as needed.
--- NOTE | 2023-10-22 16:11 | PTCARENOTE ---
Report given to RN on 4E. pt escorted to new bed and transferred to [facility]- without issue.
[2023-10-22 16:24] LABS: Glucose - Point of Care 126 mg/dl (70-99)
[2023-10-22 21:01] LABS: Glucose - Point of Care 116 mg/dl (70-99)
[2023-10-23] MEDS: LOVENOX 90 MG SC ×2 (00:32→13:14)
[2023-10-23 03:32] VITALS: BP 129/68
[2023-10-23 07:13] LABS: Glucose - Point of Care 80 mg/dl (70-99)
[2023-10-23 07:35] VITALS: BP 146/68
[2023-10-23 08:33] LABS: Hematocrit 30.8 % (39.0-52.0); Hemoglobin 10.5 g/dL (13.0-18.0); Mean Corp Hgb Conc. 34.1 g/dL (33.0-37.0); Mean Corpuscular Hgb 35.4 pg (27.0-31.0); Mean Corpuscular Volume 103.7 fL (80.0-94.0); Mean Platelet Volume 11.4 fL (7.4-10.4); Platelet Count 114 10^3/uL (130-400); Red Blood Cell Count 2.97 10^6/uL (4.70-6.10); White Blood Cell Count 24.9 10^3/uL (4.8-10.8)
[2023-10-23 09:14] LABS: ALT (SGPT) 21 U/L (0-50); AST (SGOT) 30 U/L (17-59); Albumin 2.3 g/dl (3.5-5.0); Alkaline Phosphatase 101 U/L (38-126); Blood Urea Nitrogen 32 mg/dl (9-20); Calcium 8.7 mg/dl (8.4-10.2); Carbon Dioxide 25 mmol/L (22-30); Chloride 105 mmol/L (98-107); Direct Bilirubin 0.1 mg/dl (0.0-0.4); Estimated Creatinine Clearance 68 ml/min; Glucose 45 mg/dl (70-99); Magnesium 1.8 mg/dl (1.6-2.3); Potassium 3.9 mmol/L (3.5-5.1); Sodium 135 mmol/L (135-145); Total Bilirubin 0.4 mg/dl (0.2-1.3); Total Protein 4.6 g/dl (6.3-8.2); eGFR > 60.00
[2023-10-23 09:15] LABS: Phosphorus 2.5 mg/dl (2.5-4.5)
--- NOTE | 2023-10-23 09:21 | PTCARENOTE ---
At 09:14 community liaison was made aware by lab that patient's blood glucose level, drawn w/ AM labs at 06:31, is 45mg/dl. In the interim between lab draw and notification of low glucose, a routine bedside glucose check was done, result 80mg/dl, and
patient reports eating breakfast. Patient denies symptoms of hypoglycemia this morning. Bedside glucose check repeated, result 75mg/dl. Dr. Liu made aware via tiger text.
[2023-10-23 09:22] LABS: Glucose - Point of Care 75 mg/dl (70-99)
[2023-10-23] MEDS: DELTASONE 20 MG PO (09:42)
[2023-10-23] MEDS: FOLVITE 1 MG PO (09:42)
[2023-10-23] MEDS: LEXAPRO 10 MG PO (09:42)
[2023-10-23] MEDS: PROTONIX 40 MG PO (09:42)
[2023-10-23] MEDS: ASPIR LOW (ENTERIC COATED) 81 MG PO (09:42)
[2023-10-23] MEDS: FLAGYL 500 MG PO (09:43)
[2023-10-23] MEDS: VITAMIN B-12 2000 MCG PO (09:43)
[2023-10-23] MEDS: THERAGRAN 1 TABLET PO (09:43)
[2023-10-23] MEDS: ProAmatine PO ×3 (09:52→21:53)
[2023-10-23 09:54] LABS: Absolute Neutrophils -Man Diff 22.9 10^3/uL (1.4-6.5); Band Neutrophils 20 % (0-3); Eosinophils 1 % (0-6); Lymphocytes 5 % (20-51); Monocytes 2 % (2-9); Segmented Neutrophils 72 % (42-75)
[2023-10-23 09:55] LABS: Normal RBC Morphology Yes; Platelets Checked Yes; Total Cells Counted 100
--- NOTE | 2023-10-23 10:50 | W.PN.HOSP.TC ---
Today's Communication/Plan
-
see A/P
Assessment / Plan
Assessment / Plan
A/P:
# Septic shock with resolved lactic acidosis, source likely complicated UTI with bacteremia
# h/o complicated UTI and Klebsiella bacteremia
Off Levophed
urine Cx with Klebsiella
follow blood culture until clearance
CT AP noted cystitis, Mild bilateral perinephric stranding. No hydronephrosis or nephrolithiasis.
Cont cefepime, flagyl
s/p stress dose steroid, back to WAREHOUSE SHIP[employer] chronic prednisone 20 mg for inflammatory myopathy
Cont bladder scan (no retention noted)
resume WAREHOUSE SHIP[employer] Coreg with holding parameter
ID on board
# hematuria, resolved
# diarrhea, resolved
flagyl added 10/19
C. diff neg, rest of stool studies pending (low suspicion for infection)
# neutropenia POA, now leucocytosis due to steroid
# choledocholithiasis on CT AP
No abdominal pain pain
normal LFTs/ lipase
Abd US noted choledocholithiasis without biliary ductal dilatation. A few tiny stones are suspected in the distal common bile duct, which given the absence of biliary ductal dilatation, are likely nonobstructing.
GI on board, recc ERCP, timing to be determined by clinical course, likely Wednesday
Follow abd exam, LFTs
# h/o Lower extremity DVT
# lymphedema with chronically swollen legs
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
repeat US 10/19 showed no DVT
WAREHOUSE SHIP[employer] Eliquis replaced by therapeutic Lovenox while pending ERCP
# ASCVD
# HX CVA
# Essential HTN
# HLD
Cont meds as able
ECHO with preserved LVEF and no valvular abnormalities
Continue aspirin
resumed WAREHOUSE SHIPPER Coreg
# Inflammatory myopathy, also has been worked up for PMR
# prior workup not consistent with myasthenia gravis
s/p stress dose steroids, resumed outpt prednisone 20 mg daily
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
cont midodrine
# GERD continue PPI.
# Depression continue escitalopram
Code status, Full code.
DVT prophylaxis, WAREHOUSE SHIP[employer] Eliquis replaced by therapeutic Lovenox while pending ERCP
PT OT recc SNF
DW RN
Anticipated Discharge: > 48 hours
Subjective/Interval History
-
Date of Service: October 23, 2023
Objective Data
-
Labs:
Laboratory Results
10/23/23
06:31
WBC 24.9 H
Hgb 10.5 L
Hct 30.8 L
Plt Count 114 L
Sodium 135
Potassium 3.9
Chloride 105
Carbon Dioxide 25
BUN 32 H
Creatinine 1.0
Glucose 45 L*
Calcium 8.7
Total Bilirubin 0.4
AST 30
ALT 21
Alkaline Phosphatase 101
Vital Signs:
Vital Signs
Temp Pulse Resp BP Pulse Ox
36.4 C 70 14 146/62 98
10/23/23 07:35 10/23/23 09:52 10/23/23 07:35 10/23/23 09:52 10/23/23 07:35
I&O
10/22/23 10/23/23 10/24/23
06:59 06:59 06:59
Intake Total 2987.5 / 3107.5 960 / 960
Output Total 1725 / 1725 250 / 250
Balance 1262.5 / 1382.5 710 / 710
Review of Systems
-
All other systems: Reviewed and negative
Physical Exam
-
General: Well Developed, Well Nourished, No Apparent Distress, Comfortable and Appears Chronically Ill
HEENT: Normocephalic and Atraumatic; Negative Oxygen
Respiratory: Clear to Auscultation and Non Labored Respirations; Negative Accessory Resp Muscle Use
Cardiac: Regular Rhythm and S1/S2; Negative Murmur
GI: Soft, Nontender, Nondistended and Normal Bowel Sounds; Negative Tender
Musculoskeletal: No Clubbing, No Cyanosis, Edema, Right Lower Extrem and Edema, Left Lower Extrem
Skin: Warm
Neuro: Awake and Alert
Psych: Calm
Data Reviewed
-
CT Scan: Report Reviewed by me
Labs: Labs Reviewed by me
[2023-10-23 11:20] VITALS: BP 123/68
[2023-10-23 11:42] LABS: Glucose - Point of Care 78 mg/dl (70-99)
[2023-10-23] MEDS: ROCEPHIN 2000 MG IV (13:14)
[2023-10-23] MEDS: STERILE WATER FOR INJECTION 20 ML IV (13:14)
--- NOTE | 2023-10-23 13:55 | W.PN.ID1 ---
Date of Service
Date of Service: October 23, 2023
Today's Communication
Continue ceftriaxone.
Assessment / Plan
Clinical sepsis
Bacteremia with Klebsiella pneumoniae
Hypotension; now off pressors.
Leukocytosis -trending down
Urinary tract infection (complicated)
CAD
ASCVD
Inflammatory myopathy
CVA (2018
GERD
HTN
Dyslipidemia
CKD stage III
Cholelithiasis
Recommendations:
Continue ceftriaxone (d4 abx)
DC metronidazole (no cholecystitis)
Follow repeat blood cx x 1.
Follow white count
����������������������������������������������������������
Chief Complaint
-: Clinical Sepsis
Subjective / Review of Systems
No new complaints.
Vital Signs / Physical Exam
Vital Signs
Vital Signs
Temp Pulse Resp BP Pulse Ox
97.7 F 70 14 123/68 98
10/23/23 11:20 10/23/23 11:20 10/23/23 11:20 10/23/23 11:20 10/23/23 11:20
Physical Exam
Constitutional: No Acute Distress and Comfortable
Gastrointestinal: Soft, Non Tender and Non Distended
Genito-Urinary: Negative CVA Tenderness
Objective Data
Lab Data
Lab Results
10/23/23 06:31
10/23/23 06:31
ESR 68 mm/hour (0-20) H 10/22/23 05:56
PT 17.2 Sec (11.4-14.6) H 10/20/23 17:03
INR 1.40 10/20/23 17:03
APTT 34.7 Sec (23.4-35.0) 10/20/23 17:03
Estimated Creat Clear 68 ml/min 10/23/23 06:31
Lactic Acid 1.2 mmol/L (0.7-2.0) 10/22/23 05:56
Total Bilirubin 0.4 mg/dl (0.2-1.3) 10/23/23 06:31
AST 30 U/L (17-59) 10/23/23 06:31
ALT 21 U/L (0-50) 10/23/23 06:31
Alkaline Phosphatase 101 U/L (38-126) 10/23/23 06:31
C-Reactive Protein 241.10 mg/L (0.0-10.00) H 10/23/23 06:31
Most recent labs reviewed.
Micro Results:
10/22/23 12:31 Blood Culture - Preliminary
Blood/Venous No Growth in 24 hours- Final report to follow
10/20/23 09:20 Blood Culture - Final
Blood/Venous Klebsiella pneumoniae
Gram Stain - Final
10/20/23 11:00 Salmonella/Shigella Culture - Final
Feces/Stool No Salmonella, Shigella, Aeromonas or Plesiomonas species
isolated.
Campylobacter Culture - Final
No Campylobacter species isolated.
Shiga Toxin Test - Final
No E. coli Shiga Toxin 1 or 2 detected.
10/20/23 08:22 Urine Culture - Final
Urine Klebsiella pneumoniae
10/20/23 11:00 C. difficile GDH Antigen & Toxins - Final
Feces/Stool Negative for toxigenic C.difficile
Imaging:
10/20/2023 CT abdomen/pelvis without contrast: Choledocholithiasis noted. A 5 mm calcified gallstone within the distal common bile duct with additional calcified gallstones noted within the gallbladder lumen and with mild gallbladder distention.
Mildly thickened bladder with foci of gas seen anteriorly. No evidence for hydronephrosis or nephrolithiasis. Please see full dictation for additional detail. Film personally viewed.
[2023-10-23 15:25] VITALS: BP 138/71
[2023-10-23 16:01] LABS: Glucose - Point of Care 115 mg/dl (70-99)
[2023-10-23 19:40] VITALS: BP 131/67
[2023-10-23] MEDS: COREG 3.125 MG PO (19:49)
[2023-10-23 21:44] LABS: Glucose - Point of Care 94 mg/dl (70-99)
[2023-10-23 23:30] VITALS: BP 146/71
[2023-10-24] VITALS (7 sets, daily range): BP systolic 135–165; BP diastolic 68–81
[2023-10-24] MEDS: LOVENOX 90 MG SC ×2 (00:09→15:18)
[2023-10-24 06:58] LABS: Hematocrit 30.5 % (39.0-52.0); Hemoglobin 10.3 g/dL (13.0-18.0); Mean Corp Hgb Conc. 33.8 g/dL (33.0-37.0); Mean Corpuscular Hgb 33.6 pg (27.0-31.0); Mean Corpuscular Volume 99.3 fL (80.0-94.0); Mean Platelet Volume 10.4 fL (7.4-10.4); Platelet Count 119 10^3/uL (130-400); Red Blood Cell Count 3.07 10^6/uL (4.70-6.10); Red Cell Dist. Width 15.7 % (11.5-14.5); White Blood Cell Count 18.1 10^3/uL (4.8-10.8)
[2023-10-24 07:20] LABS: Glucose - Point of Care 69 mg/dl (70-99)
[2023-10-24 07:20] LABS: Absolute Neutrophils -Man Diff 15.2 10^3/uL (1.4-6.5); Band Neutrophils 12 % (0-3); Segmented Neutrophils 72 % (42-75)
[2023-10-24 07:21] LABS: Eosinophils 1 % (0-6); Lymphocytes 11 % (20-51); Metamyelocytes 1 % (-); Monocytes 3 % (2-9); Normal RBC Morphology Yes; Platelets Checked Yes
[2023-10-24 07:22] LABS: Total Cells Counted 100
[2023-10-24 07:24] LABS: Glucose - Point of Care 72 mg/dl (70-99)
[2023-10-24 07:39] LABS: ALT (SGPT) 21 U/L (0-50); AST (SGOT) 29 U/L (17-59); Albumin 2.3 g/dl (3.5-5.0); Alkaline Phosphatase 108 U/L (38-126); Blood Urea Nitrogen 29 mg/dl (9-20); Calcium 8.5 mg/dl (8.4-10.2); Carbon Dioxide 27 mmol/L (22-30); Chloride 105 mmol/L (98-107); Direct Bilirubin 0.1 mg/dl (0.0-0.4); Estimated Creatinine Clearance 75 ml/min; Glucose 66 mg/dl (70-99); Magnesium 1.8 mg/dl (1.6-2.3); Potassium 3.9 mmol/L (3.5-5.1); Sodium 135 mmol/L (135-145); Total Bilirubin 0.3 mg/dl (0.2-1.3); Total Protein 4.6 g/dl (6.3-8.2); eGFR > 60.00
--- NOTE | 2023-10-24 08:40 | W.PN.HOSP.TC ---
Today's Communication/Plan
-
see A/P
Assessment / Plan
Assessment / Plan
A/P:
# Septic shock with resolved lactic acidosis, source from complicated UTI with bacteremia
# h/o complicated UTI and Klebsiella bacteremia
Off Levophed
urine culture and blood culture positive for Klebsiella
blood culture cleared from 10/21
CT AP noted cystitis, Mild bilateral perinephric stranding. No hydronephrosis or nephrolithiasis.
Cefepime -> ceftriaxone
s/p stress dose steroid, back to CORE DRILLER chronic prednisone 20 mg for inflammatory myopathy
Cont bladder scan (no retention noted)
resumed CORE DRILLER Coreg with holding parameter given improved BP
ID on board
# hematuria, resolved
# diarrhea, resolved
s/p flagyl 3 days
C. diff neg, stool cultures negative
# neutropenia POA, now leucocytosis due to steroid
# choledocholithiasis on CT AP
No abdominal pain
normal LFTs/ lipase
Abd US noted choledocholithiasis without biliary ductal dilatation. A few tiny stones are suspected in the distal common bile duct, which given the absence of biliary ductal dilatation, are likely nonobstructing.
GI on board, recc ERCP, timing to be determined by clinical course
Follow abd exam, LFTs
# h/o Lower extremity DVT
# lymphedema with chronically swollen legs
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
repeat US 10/19 showed no DVT
CORE DRILLER Eliquis replaced by therapeutic Lovenox while awaiting ERCP
# ASCVD
# HX CVA
# Essential HTN
# HLD
Cont meds as able
ECHO with preserved LVEF and no valvular abnormalities
Continue aspirin
resumed CORE DRILLER Coreg
# Inflammatory myopathy, also has been worked up for PMR
# prior workup not consistent with myasthenia gravis
s/p stress dose steroids, resumed outpt prednisone 20 mg daily
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
cont midodrine
# GERD continue PPI.
# Depression continue escitalopram
Code status, Full code.
DVT prophylaxis, CORE DRILLER Eliquis replaced by therapeutic Lovenox while pending ERCP
PT OT recc SNF
Anticipated Discharge: 24 - 48 hours
Subjective/Interval History
-
Date of Service: October 24, 2023
Objective Data
-
Labs:
Laboratory Results
10/24/23
06:19
WBC 18.1 H
Hgb 10.3 L
Hct 30.5 L
Plt Count 119 L
Sodium 135
Potassium 3.9
Chloride 105
Carbon Dioxide 27
BUN 29 H
Creatinine 0.9
Glucose 66 L
Calcium 8.5
Total Bilirubin 0.3
AST 29
ALT 21
Alkaline Phosphatase 108
Vital Signs:
Vital Signs
Temp Pulse Resp BP Pulse Ox
36.4 C 65 18 143/74 99
10/24/23 07:35 10/24/23 07:35 10/24/23 07:35 10/24/23 07:35 10/24/23 07:35
I&O
10/23/23 10/24/23 10/25/23
06:59 06:59 06:59
Intake Total 960 / 960
Output Total 250 / 250 3115 / 3115
Balance 710 / 710 -3115 / -3115
Review of Systems
-
All other systems: Reviewed and negative
Physical Exam
-
General: Well Developed, Well Nourished, No Apparent Distress, Comfortable and Appears Chronically Ill
HEENT: Normocephalic and Atraumatic; Negative Oxygen
Respiratory: Clear to Auscultation and Non Labored Respirations; Negative Accessory Resp Muscle Use
Cardiac: Regular Rhythm and S1/S2; Negative Murmur
GI: Soft, Nontender, Nondistended and Normal Bowel Sounds; Negative Tender
Musculoskeletal: No Clubbing, No Cyanosis, Edema, Right Lower Extrem and Edema, Left Lower Extrem
Skin: Warm
Neuro: Awake and Alert
Psych: Calm
Data Reviewed
-
CT Scan: Report Reviewed by me
Labs: Labs Reviewed by me
[2023-10-24] MEDS: FOLVITE 1 MG PO (09:10)
[2023-10-24] MEDS: ProAmatine PO ×3 (09:10→21:48)
[2023-10-24] MEDS: DELTASONE 20 MG PO (09:10)
[2023-10-24] MEDS: PROTONIX 40 MG PO (09:10)
[2023-10-24] MEDS: THERAGRAN 1 TABLET PO (09:11)
[2023-10-24] MEDS: ASPIR LOW (ENTERIC COATED) 81 MG PO (09:11)
[2023-10-24] MEDS: LEXAPRO 10 MG PO (09:11)
[2023-10-24] MEDS: COREG 3.125 MG PO ×2 (09:11→20:12)
[2023-10-24] MEDS: VITAMIN B-12 2000 MCG PO (09:11)
[2023-10-24 09:59] LABS: Glucose - Point of Care 82 mg/dl (70-99)
--- NOTE | 2023-10-24 11:59 | W.PN.ID1 ---
Date of Service
Date of Service: October 24, 2023
Today's Communication
Continue with ceftriaxone.
Assessment / Plan
Clinical sepsis
Bacteremia with Klebsiella pneumoniae
Hypotension; now off pressors.
Leukocytosis -trending down
Urinary tract infection (complicated)
CAD
ASCVD
Inflammatory myopathy, chronic prednisone
CVA (2018
GERD
HTN
Dyslipidemia
CKD stage III
Cholelithiasis
Recommendations:
Continue ceftriaxone (d5 abx)
repeat blood cx neg to date
Follow white count
����������������������������������������������������������
Chief Complaint
-: Clinical Sepsis, UTI and Bacteremia
Subjective / Review of Systems
No complaints.
Vital Signs / Physical Exam
Vital Signs
Vital Signs
Temp Pulse Resp BP Pulse Ox
97.7 F 74 16 141/71 98
10/24/23 11:15 10/24/23 11:15 10/24/23 11:15 10/24/23 11:15 10/24/23 11:15
Physical Exam
Constitutional: No Acute Distress
Gastrointestinal: Soft, Non Tender, Non Distended and Normal Bowel Sounds
Genito-Urinary: Negative CVA Tenderness
Objective Data
Lab Data
Lab Results
10/24/23 06:19
10/24/23 06:19
ESR 68 mm/hour (0-20) H 10/22/23 05:56
PT 17.2 Sec (11.4-14.6) H 10/20/23 17:03
INR 1.40 10/20/23 17:03
APTT 34.7 Sec (23.4-35.0) 10/20/23 17:03
Estimated Creat Clear 75 ml/min 10/24/23 06:19
Lactic Acid 1.2 mmol/L (0.7-2.0) 10/22/23 05:56
Total Bilirubin 0.3 mg/dl (0.2-1.3) 10/24/23 06:19
AST 29 U/L (17-59) 10/24/23 06:19
ALT 21 U/L (0-50) 10/24/23 06:19
Alkaline Phosphatase 108 U/L (38-126) 10/24/23 06:19
C-Reactive Protein 133.70 mg/L (0.0-10.00) H 10/24/23 06:19
Most recent labs reviewed.
Micro Results:
10/22/23 12:31 Blood Culture - Preliminary
Blood/Venous No Growth in 24 hours- Final report to follow
10/20/23 09:20 Blood Culture - Final
Blood/Venous Klebsiella pneumoniae
Gram Stain - Final
10/20/23 11:00 Salmonella/Shigella Culture - Final
Feces/Stool No Salmonella, Shigella, Aeromonas or Plesiomonas species
isolated.
Campylobacter Culture - Final
No Campylobacter species isolated.
Shiga Toxin Test - Final
No E. coli Shiga Toxin 1 or 2 detected.
10/20/23 08:22 Urine Culture - Final
Urine Klebsiella pneumoniae
10/20/23 11:00 C. difficile GDH Antigen & Toxins - Final
Feces/Stool Negative for toxigenic C.difficile
Imaging:
10/20/2023 CT abdomen/pelvis without contrast: Choledocholithiasis noted. A 5 mm calcified gallstone within the distal common bile duct with additional calcified gallstones noted within the gallbladder lumen and with mild gallbladder distention.
Mildly thickened bladder with foci of gas seen anteriorly. No evidence for hydronephrosis or nephrolithiasis. Please see full dictation for additional detail. Film personally viewed.
[2023-10-24 12:11] LABS: Glucose - Point of Care 128 mg/dl (70-99)
[2023-10-24 12:40] LABS: Glucose - Point of Care 135 mg/dl (70-99)
[2023-10-24] MEDS: ROCEPHIN 2000 MG IV (15:18)
[2023-10-24] MEDS: STERILE WATER FOR INJECTION 20 ML IV (15:18)
[2023-10-24 16:39] LABS: Glucose - Point of Care 114 mg/dl (70-99)
[2023-10-24 21:37] LABS: Glucose - Point of Care 101 mg/dl (70-99)
[2023-10-25] MEDS: LOVENOX 90 MG SC (00:01)
[2023-10-25 03:16] LABS: Glucose - Point of Care 84 mg/dl (70-99)
[2023-10-25 03:20] VITALS: BP 159/85
[2023-10-25 05:56] LABS: Glucose - Point of Care 67 mg/dl (70-99)
--- NOTE | 2023-10-25 06:07 | PTCARENOTE ---
Patient has blood glucose of 67. Asymptomatic. AAOx3. Patient NPO for ERCP. MANUFACTURING SUPERVISOR 2ND SHIFT made aware. Order placed for dextrose PRN and GlucaGen PRN. See MAR. Call waller within reach.
[2023-10-25] MEDS: DEXTROSE 50% SYRINGE 12.5 GRAMS IV ×3 (06:12→10:50)
[2023-10-25 06:56] LABS: Hematocrit 32.7 % (39.0-52.0); Hemoglobin 11.1 g/dL (13.0-18.0); Mean Corp Hgb Conc. 33.9 g/dL (33.0-37.0); Mean Corpuscular Hgb 33.9 pg (27.0-31.0); Mean Platelet Volume 11.3 fL (7.4-10.4); Platelet Count 129 10^3/uL (130-400); Red Blood Cell Count 3.27 10^6/uL (4.70-6.10); Red Cell Dist. Width 15.3 % (11.5-14.5); White Blood Cell Count 12.7 10^3/uL (4.8-10.8)
[2023-10-25 07:02] LABS: ALT (SGPT) 24 U/L (0-50); AST (SGOT) 41 U/L (17-59); Albumin 2.6 g/dl (3.5-5.0); Alkaline Phosphatase 130 U/L (38-126); Blood Urea Nitrogen 28 mg/dl (9-20); Calcium 8.7 mg/dl (8.4-10.2); Carbon Dioxide 32 mmol/L (22-30); Chloride 101 mmol/L (98-107); Direct Bilirubin 0.1 mg/dl (0.0-0.4); Estimated Creatinine Clearance 75 ml/min; Glucose 63 mg/dl (70-99); Potassium 4.2 mmol/L (3.5-5.1); Sodium 134 mmol/L (135-145); Total Bilirubin 0.3 mg/dl (0.2-1.3); eGFR > 60.00
[2023-10-25 07:03] LABS: Glucose - Point of Care 101 mg/dl (70-99)
[2023-10-25 07:32] VITALS: BP 149/77
[2023-10-25 07:54] LABS: % Basophils 0.6 % (0-2); % Eosinophils 1.2 % (0-6); % Lymphocytes 18.9 % (20.5-51.1); % Monocytes 5.8 % (1.7-9.3); % Neutrophils 69.5 % (42.2-75.2); Absolute Basophils 0.1 10^3/uL (0-0.2); Absolute Eosinophils 0.2 10^3/uL (0-0.7); Absolute Immature Granulocytes 0.5 10^3/uL (0-0.05); Absolute Lymphocytes 2.4 10^3/uL (1.2-3.4); Absolute Monocytes 0.7 10^3/uL (0.1-0.6); Absolute Neutrophils 8.8 10^3/uL (1.4-6.5); Nucleated Red Blood Cells % 0 % (-)
[2023-10-25 08:13] LABS: Glucose - Point of Care 65 mg/dl (70-99)
[2023-10-25] MEDS: ProAmatine 5 MG PO (08:24)
[2023-10-25] MEDS: THERAGRAN 1 TABLET PO (08:24)
[2023-10-25] MEDS: PROTONIX 40 MG PO (08:24)
[2023-10-25] MEDS: DELTASONE 20 MG PO (08:24)
[2023-10-25] MEDS: ASPIR LOW (ENTERIC COATED) 81 MG PO (08:24)
[2023-10-25] MEDS: LEXAPRO 10 MG PO (08:25)
[2023-10-25] MEDS: COREG 3.125 MG PO ×2 (08:25→20:23)
[2023-10-25] MEDS: FOLVITE 1 MG PO (08:26)
[2023-10-25] MEDS: VITAMIN B-12 2000 MCG PO (08:28)
[2023-10-25 08:43] LABS: Glucose - Point of Care 93 mg/dl (70-99)
--- NOTE | 2023-10-25 09:26 | PTCARENOTE ---
Accu check this morning - 65. Dextrose IV given. MD notified. Recheck accu check in 15 minutes 93. Patient asymptomatic.
[2023-10-25] MEDS: TYLENOL 650 MG PO (10:29)
[2023-10-25 10:35] VITALS: BMI 26.7
[2023-10-25 10:44] LABS: Glucose - Point of Care 64 mg/dl (70-99)
--- NOTE | 2023-10-25 10:55 | W.PN.UPDATE ---
Update Note
Progress Note Update
Reviewed with nursing staff, patient and . Pt has been NPO Last Lovenox was midnight. Dr. Ybarra able to proceed with ERCP today. cont NPO, IVF added with hypoglycemia. Plan for ERCP this afternoon. Hold Lovenox. Updated Dr. Araiza.
[2023-10-25] MEDS: D5W 1000 IV (11:00)
--- NOTE | 2023-10-25 11:01 | PTCARENOTE ---
Accu check 64. MD notified. D5W started at 60 mls/hour and 12.5 dextrose given. Will recheck in 15 minutes as per hypoglycemic protocol. Asymptomatic. Patient now NPO for ERCP this afternoon - added to schedule.
[2023-10-25 11:24] LABS: Glucose - Point of Care 133 mg/dl (70-99)
--- NOTE | 2023-10-25 11:24 | PTCARENOTE ---
Accu check 133 after fluids - D5W at 60 mls/hour and D50. Remains asymptomatic.
[2023-10-25 11:38] VITALS: BP 143/74
--- NOTE | 2023-10-25 11:39 | W.PN.ID1 ---
Date of Service
Date of Service: October 25, 2023
Today's Communication
continue ceftriaxone, added metronidazole
Assessment / Plan
Clinical sepsis
Bacteremia with Klebsiella pneumoniae
Leukocytosis -trending down
Urinary tract infection (complicated)
CAD
ASCVD
Inflammatory myopathy, chronic prednisone
CVA (2018
GERD
HTN
Dyslipidemia
CKD stage III
Cholelithiasis
Recommendations:
note chronic prednisone prednisone 20 mg for inflammatory myopathy, was on stress doses earlier this admission
For ercp this afternoon
Continue ceftriaxone (d6)
Add metronidazole (d1)
repeat blood cx neg to date; (blood culture clearance of gram negatives not needed from my perspective)
Follow white count
����������������������������������������������������������
Chief Complaint
-: Clinical Sepsis, UTI, Bacteremia and Other (choledocholithiasis )
Subjective / Review of Systems
afebrile
for ercp this afternoon
Vital Signs / Physical Exam
Vital Signs
Vital Signs
Temp Pulse Resp BP Pulse Ox
97.6 F 65 22 149/77 99
10/25/23 07:32 10/25/23 07:32 10/25/23 07:32 10/25/23 07:32 10/25/23 09:17
Physical Exam
Constitutional: No Acute Distress
Cardiovascular: Regular Rate and S1/S2; Negative Murmur or Rub
Pulmonary: Clear and Symmetric; Negative Wheezes or Rales
Gastrointestinal: Soft, Non Tender, Non Distended and Normal Bowel Sounds
Skin: Warm and Dry; Negative Rash or Jaundice
Objective Data
Lab Data
Lab Results
10/25/23 04:39
10/25/23 04:39
ESR 68 mm/hour (0-20) H 10/22/23 05:56
PT 17.2 Sec (11.4-14.6) H 10/20/23 17:03
INR 1.40 10/20/23 17:03
APTT 34.7 Sec (23.4-35.0) 10/20/23 17:03
Estimated Creat Clear 75 ml/min 10/25/23 04:39
Lactic Acid 1.2 mmol/L (0.7-2.0) 10/22/23 05:56
Total Bilirubin 0.3 mg/dl (0.2-1.3) 10/25/23 04:39
AST 41 U/L (17-59) 10/25/23 04:39
ALT 24 U/L (0-50) 10/25/23 04:39
Alkaline Phosphatase 130 U/L (38-126) H 10/25/23 04:39
C-Reactive Protein 133.70 mg/L (0.0-10.00) H 10/24/23 06:19
Most recent labs reviewed.
Micro Results:
10/22/23 12:31 Blood Culture - Preliminary
Blood/Venous No Growth in 48 hours- Final report to follow
10/20/23 09:20 Blood Culture - Final
Blood/Venous Klebsiella pneumoniae
Gram Stain - Final
10/20/23 11:00 Salmonella/Shigella Culture - Final
Feces/Stool No Salmonella, Shigella, Aeromonas or Plesiomonas species
isolated.
Campylobacter Culture - Final
No Campylobacter species isolated.
Shiga Toxin Test - Final
No E. coli Shiga Toxin 1 or 2 detected.
10/20/23 08:22 Urine Culture - Final
Urine Klebsiella pneumoniae
10/20/23 11:00 C. difficile GDH Antigen & Toxins - Final
Feces/Stool Negative for toxigenic C.difficile
Imaging:
10/20/2023 CT abdomen/pelvis without contrast: Choledocholithiasis noted. A 5 mm calcified gallstone within the distal common bile duct with additional calcified gallstones noted within the gallbladder lumen and with mild gallbladder distention.
Mildly thickened bladder with foci of gas seen anteriorly. No evidence for hydronephrosis or nephrolithiasis. Please see full dictation for additional detail. Film personally viewed.
[2023-10-25] MEDS: FLAGYL 500 MG 100 IV (11:59)
--- NOTE | 2023-10-25 13:28 | W.PN.HOSP.TC ---
Today's Communication/Plan
-
ERCP today
Assessment / Plan
Assessment / Plan
pt is a 77 year old male
Septic shock with resolved lactic acidosis, source from complicated UTI with bacteremia --urine culture and blood culture positive for Klebsiella--off pressors 10/21--s/p stress dose steroids, now back on outpt dosing--blood culture cleared from
10/21--CT AP noted cystitis, Mild bilateral perinephric stranding. No hydronephrosis or nephrolithiasis--resumed COAL CHUTE WORKER Coreg with holding parameter given improved BP--apprec ID on board--cont ceftriaxone
hematuria, resolved
diarrhea, resolved--s/p flagyl 3 days--C. diff neg, stool cultures negative
neutropenia POA-- now leucocytosis due to steroid
choledocholithiasis on CT AP--No abdominal pain--normal LFTs/ lipase--Abd US noted choledocholithiasis without biliary ductal dilatation. A few tiny stones are suspected in the distal common bile duct, which given the absence of biliary ductal
dilatation, are likely nonobstructing--GI on board, recc ERCP, today
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
duplicated vein--repeat US 10/19 showed no DVT --COAL CHUTE WORKER Eliquis replaced by therapeutic Lovenox while awaiting ERCP
ASCVD
HX CVA
Essential HTN
HLD
Inflammatory myopathy, also has been worked up for PMR--prior workup not consistent with myasthenia gravis--s/p stress dose steroids, resumed outpt prednisone 20 mg daily
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
GERD continue PPI.
Depression continue escitalopram
Code status, Full code.
DVT prophylaxis, COAL CH[employer] WORKER Eliquis replaced by therapeutic Lovenox while pending ERCP
PT OT rec SNF
Anticipated Discharge: 24 - 48 hours
Subjective/Interval History
-
Date of Service: October 25, 2023
pt waiting for ERCP
Objective Data
-
Labs:
Laboratory Results
10/25/23
04:39
WBC 12.7 H
Hgb 11.1 L
Hct 32.7 L
Plt Count 129 L
Sodium 134 L
Potassium 4.2
Chloride 101
Carbon Dioxide 32 H
BUN 28 H
Creatinine 0.9
Glucose 63 L
Calcium 8.7
Total Bilirubin 0.3
AST 41
ALT 24
Alkaline Phosphatase 130 H
Vital Signs:
max temp for 24 hours
10/25/23
11:38
Temp 98 F
Vital Signs
Temp Pulse Resp BP Pulse Ox
98 F 63 18 143/74 98
10/25/23 11:38 10/25/23 11:38 10/25/23 11:38 10/25/23 11:38 10/25/23 11:38
I&O
10/24/23 10/25/23 10/26/23
06:59 06:59 06:59
Intake Total 680 / 680
Output Total 3115 / 3115 3000 / 3000
Balance -3115 / -3115 -2320 / -2320
Review of Systems
-
All other systems: Reviewed and negative
Physical Exam
-
General: Well Developed, Well Nourished and No Apparent Distress
HEENT: Normocephalic and Atraumatic
Respiratory: Clear to Auscultation; Negative Wheezes or Rhonchi
Cardiac: Regular Rhythm and S1/S2; Negative Murmur
GI: Soft, Nontender, Nondistended and Normal Bowel Sounds
Musculoskeletal: No Clubbing, No Cyanosis and No Edema
Neuro: Awake and Alert
Psych: Calm
[2023-10-25 13:33] LABS: Glucose - Point of Care 92 mg/dl (70-99)
[2023-10-25] MEDS: ROCEPHIN 2000 MG IV (13:41)
[2023-10-25] MEDS: STERILE WATER FOR INJECTION 20 ML IV (13:41)
--- NOTE | 2023-10-25 13:47 | PTCARENOTE ---
Hibiclens bath given and clean linens/gown placed. Patient NPO since midnight. Pneumatic compression stockings placed on patient. Lovenox on hold. Antibiotics administered as ordered. Patient awaiting ERCP. Denies questions at this time. Resting
comfortably in bed.
--- NOTE | 2023-10-25 14:58 | CM ---
Addendum entered by Chelsea Franklin 10/25/23 15:14:
tt for liaison to review.
Original Note:
Patient seen at bedside for ERCP today. CM will continue to follow for discharge planning needs.
Plan; home with no needs vs home with VN; [facility] possibly for [facility].
--- NOTE | 2023-10-25 15:28 | WOUNDNOTE ---
[facility] RN note: Patient seen for HAPI report for 'stage 3 coccyx pressure injury'. Patient stated he's had coccyx skin breakdown for some time. Coccyx has 2 linear healing stage 2 pressure injuries. Patient turns with 1 assist. He has an air chair
cushion. His loose bowels have improved. Silicone border foam changed on coccyx. Heels off bed with pillow. He also has a small dried serous blister on his R heel he confirmed he had a blister before prior to admission. Foam dressing applied to
heels. Care plan to be updated. Alfredo Caldwell re: recommend air overlay mattress or air mattress (red sign at footboard, can call manufacturing shift supervisor for bed if needed [phone]).
[2023-10-25 15:36] VITALS: BP 160/76
[2023-10-25 16:11] LABS: Glucose - Point of Care 97 mg/dl (70-99)
--- NOTE | 2023-10-25 16:47 | W.PN.UPDATE ---
Update Note
Progress Note Update
unable to do ERCP today due to scheduling. Will resume diet. Dr. Tavarez and I reviewed with patient, spouse, nursing staff, and Dr. Araiza
[2023-10-25] MEDS: ProAmatine PO ×2 (17:32→23:22)
[2023-10-25 19:30] VITALS: BP 143/64
[2023-10-25 21:09] LABS: Glucose - Point of Care 199 mg/dl (70-99)
[2023-10-25 23:21] VITALS: BP 138/68
[2023-10-26] VITALS (12 sets, daily range): BP systolic 141–184; BP diastolic 66–91
[2023-10-26] MEDS: FLAGYL 500 MG 100 IV ×2 (00:24→12:55)
[2023-10-26 03:30] LABS: Glucose - Point of Care 110 mg/dl (70-99)
[2023-10-26] MEDS: D5W 1000 IV ×2 (05:45→20:28)
[2023-10-26] MEDS: TYLENOL 650 MG PO (05:47)
[2023-10-26 07:25] LABS: Glucose - Point of Care 85 mg/dl (70-99)
[2023-10-26] MEDS: THERAGRAN PO (08:26)
[2023-10-26] MEDS: ASPIR LOW (ENTERIC COATED) 81 MG PO (08:26)
[2023-10-26] MEDS: VITAMIN B-12 2000 MCG PO (08:26)
[2023-10-26] MEDS: FOLVITE 1 MG PO (08:26)
[2023-10-26] MEDS: DELTASONE 20 MG PO (08:27)
[2023-10-26] MEDS: LEXAPRO 10 MG PO (08:27)
[2023-10-26] MEDS: COREG 3.125 MG PO (08:27)
[2023-10-26] MEDS: PROTONIX 40 MG PO (08:27)
[2023-10-26 08:28] LABS: Hematocrit 32.5 % (39.0-52.0); Mean Corp Hgb Conc. 33.8 g/dL (33.0-37.0); Mean Corpuscular Hgb 33.6 pg (27.0-31.0); Mean Corpuscular Volume 99.4 fL (80.0-94.0); Mean Platelet Volume 10.9 fL (7.4-10.4); Platelet Count 150 10^3/uL (130-400); Red Blood Cell Count 3.27 10^6/uL (4.70-6.10); Red Cell Dist. Width 15.5 % (11.5-14.5); White Blood Cell Count 10.4 10^3/uL (4.8-10.8)
[2023-10-26] MEDS: DESENEX/MITRAZOL/ZEASORB 1 APPLIC TOPICAL (08:30)
[2023-10-26] MEDS: ProAmatine PO ×3 (08:31→20:56)
[2023-10-26 09:00] LABS: ALT (SGPT) 28 U/L (0-50); AST (SGOT) 44 U/L (17-59); Albumin 2.5 g/dl (3.5-5.0); Alkaline Phosphatase 117 U/L (38-126); Blood Urea Nitrogen 24 mg/dl (9-20); Calcium 8.6 mg/dl (8.4-10.2); Carbon Dioxide 29 mmol/L (22-30); Chloride 100 mmol/L (98-107); Estimated Creatinine Clearance 75 ml/min; Glucose 75 mg/dl (70-99); Magnesium 1.7 mg/dl (1.6-2.3); Potassium 3.9 mmol/L (3.5-5.1); Sodium 132 mmol/L (135-145); Total Bilirubin 0.3 mg/dl (0.2-1.3); Total Protein 4.9 g/dl (6.3-8.2); eGFR > 60.00
--- NOTE | 2023-10-26 11:09 | PTCARENOTE ---
Patient NPo since midnight. Awaiting ERCP this afternoon.
[2023-10-26] MEDS: ROCEPHIN 2000 MG IV (14:00)
[2023-10-26] MEDS: STERILE WATER FOR INJECTION 20 ML IV (14:00)
--- NOTE | 2023-10-26 17:11 | W.PN.ID1 ---
Date of Service
Date of Service: October 26, 2023
Today's Communication
continue ceftriaxone and metronidazole
Assessment / Plan
Clinical sepsis
Bacteremia with Klebsiella pneumoniae
Leukocytosis -trending down
Urinary tract infection (complicated)
CAD
ASCVD
Inflammatory myopathy, chronic prednisone
CVA (2018
GERD
HTN
Dyslipidemia
CKD stage III
Cholelithiasis
Recommendations:
note chronic prednisone prednisone 20 mg for inflammatory myopathy, was on stress doses earlier this admission
await ercp
Continue ceftriaxone (d7)
continue metronidazole (d2)
repeat blood cx neg to date; (blood culture clearance of gram negatives not needed from my perspective)
Follow white count
����������������������������������������������������������
Chief Complaint
-: Clinical Sepsis, UTI, Bacteremia and Other (choledocholithiasis )
Subjective / Review of Systems
upset about delay of ercp
still with some ruq abdominal tenderness
Vital Signs / Physical Exam
Vital Signs
Vital Signs
Temp Pulse Resp BP Pulse Ox
97.7 F 66 18 141/74 96
10/26/23 11:23 10/26/23 11:23 10/26/23 11:23 10/26/23 11:23 10/26/23 11:23
Physical Exam
Constitutional: No Acute Distress
Cardiovascular: Regular Rate and S1/S2; Negative Murmur or Rub
Pulmonary: Clear and Symmetric; Negative Wheezes or Rales
Gastrointestinal: Soft, Non Tender, Non Distended and Normal Bowel Sounds
Skin: Warm and Dry; Negative Rash or Jaundice
Objective Data
Lab Data
Lab Results
10/26/23 07:16
10/26/23 07:16
ESR 68 mm/hour (0-20) H 10/22/23 05:56
PT 17.2 Sec (11.4-14.6) H 10/20/23 17:03
INR 1.40 10/20/23 17:03
APTT 34.7 Sec (23.4-35.0) 10/20/23 17:03
Estimated Creat Clear 75 ml/min 10/26/23 07:16
Lactic Acid 1.2 mmol/L (0.7-2.0) 10/22/23 05:56
Total Bilirubin 0.3 mg/dl (0.2-1.3) 10/26/23 07:16
AST 44 U/L (17-59) 10/26/23 07:16
ALT 28 U/L (0-50) 10/26/23 07:16
Alkaline Phosphatase 117 U/L (38-126) 10/26/23 07:16
C-Reactive Protein 133.70 mg/L (0.0-10.00) H 10/24/23 06:19
Most recent labs reviewed.
Micro Results:
10/22/23 12:31 Blood Culture - Preliminary
Blood/Venous No Growth in 4 days- Final report to follow
10/20/23 09:20 Blood Culture - Final
Blood/Venous Klebsiella pneumoniae
Gram Stain - Final
10/20/23 11:00 Salmonella/Shigella Culture - Final
Feces/Stool No Salmonella, Shigella, Aeromonas or Plesiomonas species
isolated.
Campylobacter Culture - Final
No Campylobacter species isolated.
Shiga Toxin Test - Final
No E. coli Shiga Toxin 1 or 2 detected.
10/20/23 08:22 Urine Culture - Final
Urine Klebsiella pneumoniae
10/20/23 11:00 C. difficile GDH Antigen & Toxins - Final
Feces/Stool Negative for toxigenic C.difficile
Imaging:
10/20/2023 CT abdomen/pelvis without contrast: Choledocholithiasis noted. A 5 mm calcified gallstone within the distal common bile duct with additional calcified gallstones noted within the gallbladder lumen and with mild gallbladder distention.
Mildly thickened bladder with foci of gas seen anteriorly. No evidence for hydronephrosis or nephrolithiasis. Please see full dictation for additional detail. Film personally viewed.
--- NOTE | 2023-10-26 18:16 | W.PN.HOSP.TC ---
Today's Communication/Plan
-
ERCP.
Continue broad-spectrum antibiotics/ceftriaxone metronidazole for UTI/Klebsiella bacteremia
Assessment / Plan
Assessment / Plan
pt is a 77 year old male
Septic shock with resolved lactic acidosis, source from complicated UTI with bacteremia --urine culture and blood culture positive for Klebsiella--off pressors 10/21--s/p stress dose steroids, now back on outpt dosing--blood culture cleared from
10/21--CT AP noted cystitis, Mild bilateral perinephric stranding. No hydronephrosis or nephrolithiasis--resumed JOINERY SETTER OUT Coreg with holding parameter given improved BP--apprec ID on board--cont ceftriaxone
hematuria, resolved
diarrhea, resolved--s/p flagyl 3 days--C. diff neg, stool cultures negative
neutropenia POA-- now leucocytosis due to steroid
choledocholithiasis on CT AP--No abdominal pain--normal LFTs/ lipase--Abd US noted choledocholithiasis without biliary ductal dilatation. A few tiny stones are suspected in the distal common bile duct, which given the absence of biliary ductal
dilatation, are likely nonobstructing--GI on board, recc ERCP, today
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
duplicated vein--repeat US 10/19 showed no DVT --JOINERY SETTER OUT Eliquis replaced by therapeutic Lovenox while awaiting ERCP
ASCVD
HX CVA
Essential HTN
HLD
Inflammatory myopathy, also has been worked up for PMR--prior workup not consistent with myasthenia gravis--s/p stress dose steroids, resumed outpt prednisone 20 mg daily
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
GERD continue PPI.
Depression continue escitalopram
Code status, Full code.
DVT prophylaxis, JOINERY SETTER OUT Eliquis replaced by therapeutic Lovenox while pending ERCP
PT OT rec SNF
Anticipated Discharge: > 48 hours
Subjective/Interval History
-
Date of Service: October 26, 2023
Objective Data
-
Labs:
Laboratory Results
10/26/23
07:16
WBC 10.4
Hgb 11.0 L
Hct 32.5 L
Plt Count 150
Sodium 132 L
Potassium 3.9
Chloride 100
Carbon Dioxide 29
BUN 24 H
Creatinine 0.9
Glucose 75
Calcium 8.6
Total Bilirubin 0.3
AST 44
ALT 28
Alkaline Phosphatase 117
Vital Signs:
Vital Signs
Temp Pulse Resp BP Pulse Ox
97.7 F 66 18 141/74 96
10/26/23 11:23 10/26/23 11:23 10/26/23 11:23 10/26/23 11:23 10/26/23 11:23
I&O
10/25/23 10/26/23 10/27/23
06:59 06:59 06:59
Intake Total 680 / 680 200 / 200
Output Total 3000 / 3000 2600 / 2600
Balance -2320 / -2320 -2400 / -2400
Physical Exam
-
General: Well Developed and No Apparent Distress
HEENT: Normocephalic, Atraumatic and Moist Mucous Membranes
Respiratory: Clear to Auscultation
Cardiac: Regular Rhythm and S1/S2; Negative Murmur, Rub or Gallop
GI: Soft, Nontender, Nondistended and Normal Bowel Sounds; Negative Organomegaly
Rectal: Deferred by Provider
Musculoskeletal: No Clubbing, No Cyanosis and No Edema
Skin: Negative Rash
Neuro: Nonfocal/Grossly Intact
[2023-10-26 18:34] LABS: Glucose - Point of Care 111 mg/dl (70-99)
--- NOTE | 2023-10-26 19:49 | PTCARENOTE ---
Patient returned from ERCP. Patient with clamped NGT in right nare. Awake and alert. Vital signs stable. O2 2L NC. Patient to be NPO as per surgical team. Tele placed back on patient. Spoke with patient's Yesi and gave her an update.
[2023-10-26] MEDS: COREG PO (20:27)
[2023-10-27] MEDS: FLAGYL 500 MG 100 IV (00:03)
[2023-10-27 01:07] LABS: Glucose - Point of Care 129 mg/dl (70-99)
--- NOTE | 2023-10-27 01:50 | PTCARENOTE ---
1999 pt returned from PACU, on 2 L o2, NG Clamped. patient AAOX3, denies pain. confirmed diet order with Dr Sunshine via tiger text, pt strict NPO, with NG to LIWS. IVF entered by Pauline to D5W at 60cc/hr. inst pt on POC, pt denies any questions at
this time
[2023-10-27 03:24] VITALS: BP 153/77
[2023-10-27 06:16] LABS: Glucose - Point of Care 112 mg/dl (70-99)
[2023-10-27] MEDS: D5W 1000 IV (06:18)
[2023-10-27 07:48] VITALS: BP 139/67
--- NOTE | 2023-10-27 08:30 | PTCARENOTE ---
patient with NG tube in left nare ,tape loose and ng tube not in proper place. tube repositioned and placement confirmed with air instillation, and placed back to low intermittent suction as ordered. plan of care on going
[2023-10-27 08:53] LABS: Hematocrit 32.5 % (39.0-52.0); Hemoglobin 11.6 g/dL (13.0-18.0); Mean Corp Hgb Conc. 35.7 g/dL (33.0-37.0); Mean Corpuscular Hgb 35.2 pg (27.0-31.0); Mean Corpuscular Volume 98.5 fL (80.0-94.0); Mean Platelet Volume 11.1 fL (7.4-10.4); Platelet Count 179 10^3/uL (130-400); Red Cell Dist. Width 15.1 % (11.5-14.5)
--- NOTE | 2023-10-27 09:53 | W.PN.GI.CBS2 ---
Addendum entered and electronically signed by Rosa Tavarez MD 10/27/23 19:01:
I saw and examined the patient.
The SERVICE STATION EQUIPMENT MECHANIC's note was reviewed and I agree with the note.
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
and subsequently OVESCO clip was placed and surgery was consulted he is already on antibiotics which were switched today after discussing with ID to [facility]. He did have an upper GI subsequently today and did not show any extravasation of contrast
and clip is in place also noted to have duodenal stenosis on the upper GI and duodenal diverticulosis. He feels well with no abdominal pain. Discussed with Dr. Sunshine NG tube was DC'd after the upper GI and started on clear liquid diet. Continue
broad-spectrum antibiotics, abdominal exam is benign he has no guarding, he is soft, he is nontender and there is no rebound. Dr. Ybarra had also seen the patient earlier. Will discuss with him plan for eventual treatment of the choledocholithiasis
but currently he is asymptomatic from the choledocholithiasis. Continue PPI twice daily
Original Note:
Today's Communication / Plan
-
s/p attempted ERCP with duodenal stenosis, dilation and perforation with ovesco clip placement
pt feeling well today no abdominal pain WBC 11,000
plan for UGI this am
surgical eval
will need to determine plan to eventually treat choledocholithiasis
NPO
Lovenox high dose remains on hold will review with Dr. Tavarez to resume await UGI series first
reviewed via tiger text with ID with noted GI procedure and antibiotics adjustment
will follow
Assessment / Plan
-
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 He was sent to 09/11 with weakness/sepsis with concern for klebsiella
bacteremia/UTI. He was treated with antibiotics and returned to rehab 09/16 with discharged 10/04. He returned to ER 10/19 with shaking chills. He has blood noted in urine and on admission noted with gram neg bacilli on blood and urine culture. He was
noted with elevated lactate up to 6.2 then down to 2.7 and further rise today to 4.1. LFT's noted normal but required pressors on admission for hypotension. Since admission pt had CT and US with noted choledocholithiasis asked to eval for ERCP.
In reviewing chart pt also with know CBD stone on MRI in May. Pt has been scheduled [address] times [address] ERCP [address] Ybarra but held with other medical problems.
10/25 EUS - Two stones were visualized endosonographically in CBD, multiple stones in gallbladder
10/25- ERCP - Acquired duodenal stenosis. dilation with attempt to advance scope with perforation, with placement of OVESCO clip in duodenum
-s/p attempted ERCP with duodenal stenosis, dilation and attempted advance scope with perforation and placement
-persistent choledocholithiasis with normal LFT's no abdominal pain
-s/p sepsis with elevated lactate, leukocytosis, hypotension requiring pressor on admission
-gram neg bacilli + blood and urine
-recent klebsiella UTI/bacteremia 09/12/23
-leukocytosis
-hx DVT on Eliquis
-thrombocytopenia
-elevated CRP
other med problems:
hip ORIF 06/2023
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
CVA
CAD
ASCVD
CVA
GERD
HTN
Dyslipidemia
CKD stage III
Cholelithiasis
PLAN:
s/p attempted ERCP with duodenal stenosis, dilation and perforation with ovesco clip placement
pt feeling well today no abdominal pain WBC 11,000
plan for UGI this am
surgical eval
will need to determine plan to eventually treat choledocholithiasis
NPO
Lovenox high dose remains on hold will review with Dr. Tavarez to resume await UGI series first
reviewed via tiger text with ID with noted GI procedure and antibiotics adjustment
will follow
Subjective
Subjective
Date of Service: October 27, 2023
10/24 brown stool, NPO pt feeling well no abdominal pain only 25 ml output from NGT
Objective
Data Reviewed
Laboratory Data:
Laboratory Results
10/27/23 08:01
Laboratory Results
PT 17.2 Sec (11.4-14.6) H 10/20/23 17:03
INR 1.40 10/20/23 17:03
APTT 34.7 Sec (23.4-35.0) 10/20/23 17:03
Phosphorus 2.5 mg/dl (2.5-4.5) 10/23/23 06:31
Magnesium 1.7 mg/dl (1.6-2.3) 10/26/23 07:16
Total Bilirubin 0.3 mg/dl (0.2-1.3) 10/26/23 07:16
AST 44 U/L (17-59) 10/26/23 07:16
ALT 28 U/L (0-50) 10/26/23 07:16
Alkaline Phosphatase 117 U/L (38-126) 10/26/23 07:16
Lipase 81 U/L (23-300) 10/20/23 08:22
Vital Signs and I&O:
Vital Signs
Temp Pulse Resp BP Pulse Ox
98.1 F 72 18 139/67 98
10/27/23 07:48 10/27/23 07:48 10/27/23 07:48 10/27/23 07:48 10/27/23 07:48
I&O
10/26/23 10/27/23 10/28/23
06:59 06:59 06:59
Intake Total 200 / 200 1680 / 1680
Output Total 2600 / 2600 3275 / 3275 100 / 100
Balance -2400 / -2400 -1595 / -1595 -100 / -100
Physical Exam
Physical Exam
HEENT: Anicteric and Moist mucous membranes
Cardiology: Normal Sinus Rhythm
Pulmonary: Clear
GI: Soft, Non Distended, Non Tender and Other (NGT minimal output recorded )
Extremities: No Edema
Neuro: Non Focal
[2023-10-27 10:35] LABS: ALT (SGPT) 24 U/L (0-50); AST (SGOT) 36 U/L (17-59); Albumin 2.4 g/dl (3.5-5.0); Alkaline Phosphatase 99 U/L (38-126); Blood Urea Nitrogen 24 mg/dl (9-20); Calcium 8.1 mg/dl (8.4-10.2); Carbon Dioxide 26 mmol/L (22-30); Chloride 100 mmol/L (98-107); Estimated Creatinine Clearance 85 ml/min; Glucose 107 mg/dl (70-99); Potassium 4.6 mmol/L (3.5-5.1); Sodium 130 mmol/L (135-145); Total Bilirubin 0.4 mg/dl (0.2-1.3); Total Protein 4.8 g/dl (6.3-8.2); eGFR > 60.00
[2023-10-27] MEDS: COREG PO (11:37)
[2023-10-27] MEDS: ASPIR LOW (ENTERIC COATED) PO (11:37)
[2023-10-27] MEDS: THERAGRAN PO (11:38)
[2023-10-27] MEDS: FOLVITE PO (11:38)
[2023-10-27] MEDS: DELTASONE PO (11:38)
[2023-10-27] MEDS: ProAmatine PO (11:38)
[2023-10-27] MEDS: VITAMIN B-12 PO (11:38)
[2023-10-27] MEDS: LEXAPRO PO (11:38)
--- NOTE | 2023-10-27 11:57 | PTCARENOTE ---
returned from UGI ray- per radiologist tip of NG tube in esophagus and needs to be advanced 3-5cm. ng tube advanced 5cm , at 65 cm marking, placement confirmed with air instillation. placed back to suction with small amunt of yellow/brown fluid.
plan of care on going.
[2023-10-27] MEDS: NSS 1000 IV (12:03)
[2023-10-27] MEDS: PROTONIX IV 40 MG IV ×2 (12:04→21:00)
[2023-10-27] MEDS: UNASYN IV ×3 (12:04→21:07)
[2023-10-27] MEDS: NSS (PRESERVATIVE FREE) 10 ML IV ×2 (12:04→21:00)
[2023-10-27] MEDS: PROTONIX PO (12:15)
[2023-10-27 12:18] VITALS: BP 161/79
[2023-10-27 12:39] LABS: Glucose - Point of Care 99 mg/dl (70-99)
--- NOTE | 2023-10-27 14:39 | PN.CDI ---
CDI
- -
CDI:
Physician Documentation Request
Admit Date: 10/20/23 10:59
Dear Doctor Aurelia,
Please review the following and provide your response in the progress notes.
Clinical Indicators:
Pt admitted with sepsis.
10/24 WO RN: 'Patient stated he's had coccyx skin breakdown for some time. Coccyx has 2 linear healing stage 2 pressure injuries....suspect POA.'
Physician documentation of the type and location of wounds is required for compliant documentation. Based on the above clinical findings and your assessment, please provide the following in your progress note:
Stage 2 coccyx pressure injury, suspect POA
Coccyx non-pressure injury
Other
Use of terms such as suspected, likely, concern for, or probable (associated with a specific diagnosis that is being evaluated, monitored, or treated as if it exists) are acceptable and can be coded in the inpatient setting, when documented at the
time of discharge.
Thank you,
Brandy Malone RN, BSN
CDI Specialist
Available via [employer]
Please use your independent medical judgment in providing your response.
*Source: National Pressure Ulcer Advisory Panel (NPUAP)
--- NOTE | 2023-10-27 15:05 | CM ---
CM attempted to visit with Steffen today; he was sleeping. ERCP done today and PT is on hold due to possible complication.
Plan: CM will continue to follow for discharge planning; likely to home when medically stable.
--- NOTE | 2023-10-27 15:21 | W.PN.HOSP.TC ---
Today's Communication/Plan
-
Upper GI series.
Serial abdominal examination per
NG tube.
IV PPI
IV antibiotics
Hold oral medications
Hold anticoagulation
Assessment / Plan
Assessment / Plan
Impression:
77 years old male with extensive past medical history including recent UTI and sepsis with Klebsiella bacteremia presents with chills and rigors, reported gross hematuria (self clear) at home
Sepsis (fever, tachycardia, lactic acidosis, neutropenia)
Complicated urinary tract infection with Klebsiella bacteremia
Hematuria open presentation, resolved
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
Recent hospitalization with sepsis complicated UTI with Klebsiella bacteremia.
Conditions prior to admission:
CAD
History of CVA 2018 baseline essential hypertension, hold with chronic hypotension on midodrine prior to presentation but
Dyslipidemia baseline CKD stage III by records.
Choledocholithiasis.
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
GERD
Depression
PLAN:
Sepsis secondary to complicated urinary tract infection with Klebsiella bacteremia.
Septic shock present on admission.
Lactic acidosis.
CT scan of the abdomen pelvis upon admission with no urinary tract pathology.
Initially with hematuria, currently resolved.
ID input appreciated
Continue antibiotics
Choledocholithiasis, less likely represents source of bacteremia over this hospitalization.
No abdominal pain with normal LFTs and pancreatic enzymes upon presentation
Status post ERCP 10/25 with duodenal stenosis, dilation and perforation with ovesco clip placement.
10/25 EUS - Two stones were visualized endosonographically in CBD, multiple stones in gallbladder
10/25- ERCP - Acquired duodenal stenosis. dilation with attempt to advance scope with perforation, with placement of OVESCO clip in duodenum
Surgery consultation.
Close monitoring
NG tube
N.p.o.
Broad-spectrum antibiotics, consolidated to Unasyn
Upper GI series
Hold anticoagulation.
Left lower extremity DVT
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
No evidence for deep venous thrombosis from the common femoral through the popliteal vein. The right peroneal vein and the proximal greater saphenous vein also appear patent.
Repeat Doppler over this admission with no evidence of DVT.
On Eliquis prior to admission later changed to weight-based Lovenox, currently on hold given acute GI issues.
ASCVD
History of CVA baseline essential hypertension
Dyslipidemia.
Echocardiogram with preserved LVEF and no valvular abnormalities.
Continue aspirin
On Coreg prior to presentation
Inflammatory myopathy
Also has been worked up for PMR, prior workup not consistent with myasthenia gravis.
Continue preadmission steroid maintenance currently on prednisone 20 mg daily.
Change to IV hydrocortisone while NPO
GERD continue PPI.
Depression continue escitalopram
Full code.
DVT prophylaxis hold Eliquis as above.
Anticipated Discharge: > 48 hours
Subjective/Interval History
-
Date of Service: October 27, 2023
Objective Data
-
Labs:
Laboratory Results
10/27/23
08:01
WBC 11.0 H
Hgb 11.6 L
Hct 32.5 L
Plt Count 179
Sodium 130 L
Potassium 4.6
Chloride 100
Carbon Dioxide 26
BUN 24 H
Creatinine 0.8
Glucose 107 H
Calcium 8.1 L
Total Bilirubin 0.4
AST 36
ALT 24
Alkaline Phosphatase 99
Vital Signs:
Vital Signs
Temp Pulse Resp BP Pulse Ox
98 F 68 18 161/79 97
10/27/23 12:18 10/27/23 12:18 10/27/23 12:18 10/27/23 12:18 10/27/23 12:18
I&O
10/26/23 10/27/23 10/28/23
06:59 06:59 06:59
Intake Total 200 / 200 1680 / 1680
Output Total 2600 / 2600 3275 / 3275 100 / 100
Balance -2400 / -2400 -1595 / -1595 -100 / -100
Physical Exam
-
General: Well Developed and No Apparent Distress
HEENT: Normocephalic, Atraumatic and Moist Mucous Membranes
Respiratory: Clear to Auscultation
Cardiac: Regular Rhythm and S1/S2; Negative Murmur, Rub or Gallop
GI: Soft, Nontender, Nondistended, Normal Bowel Sounds and Other (NGT in place); Negative Organomegaly
Rectal: Deferred by Provider
Musculoskeletal: No Clubbing, No Cyanosis and No Edema
Skin: Negative Rash
Neuro: Awake, Alert, Oriented and Nonfocal/Grossly Intact
[2023-10-27 15:31] VITALS: BP 165/77
--- NOTE | 2023-10-27 15:38 | CON.GS ---
Consultation
-
Requesting Provider: Tate
Performing Provider: Jong
Reason for Consultation: Iatrogenic duodenal perforation
Medical History
-
Chief Complaint: Iatrogenic duodenal perforation
History of Present Illness:
77M PPD1 s/p ERCP for choledocholithiasis c/b iatrogenic duodenal perforation, either in the bulb or D2. GS was consulted during the procedure. Pt was intubated and sedated for the procedure during my encounter yesterday. Today he appears
comfortable, offers no complaints other than the NGT bothering him. It took several months for him to get the ERCP due to scheduling difficulties and hospital admissions for other issues.
Past Medical History
Past Medical History: Other (CAD, CVA, GERD, HTN, Hypercholesterolemia, Renal Failure (CKD) and Other (vitamin B12, vitamin D, adenomatous polyps, celiac disease, cholelithiasis, inflammatory myopathy,- PMR with suspected Myasthenia gravis, lumbar
DDD, anemia, thrombocytopenia, DVT)
Past Surgical History: Other (Orthopedic (left hip ORIF 06/2023) and Other (Hernia, cataract surgery, bilateral cataract surgery, left leg stent)
Social History
Tobacco: Non-Smoker
Alcohol: None
Drug: None
Personal:
Living: With Family
Family History
Family History: Reviewed & Noncontributory
Allergies / Home Medications
Allergy/AdvReac Type Severity Reaction Status Date / Time
gluten Allergy Severe Celiac Verified 09/17/23 13:03
disease
�Medication �Instructions �Recorded �Confirmed �Type
aspirin 81 mg tablet,delayed 81 mg PO DAILY Blood Clot 08/13/23 10/20/23 History
release Prevention/Tx
therapeutic multivitamin 1 tab PO DAILY Supplement 09/18/23 10/20/23 History
apixaban 5 mg tablet (Eliquis) 5 mg PO BID DVT 30 days #60 tabs 10/05/23 10/20/23 Rx
carvedilol 3.125 mg tablet 3.125 mg PO BID Blood pressure 30 10/05/23 10/20/23 Rx
days #60 tabs
folic acid 1 mg tablet 1 mg PO DAILY Supplement 30 days 10/05/23 10/20/23 Rx
#30 tabs
pantoprazole 40 mg tablet,delayed 40 mg PO DAILY GERD 30 days #30 10/05/23 10/20/23 Rx
release tabs
cyanocobalamin (vitamin B-12) 2,000 mcg PO DAILY supplement 10/20/23 10/20/23 History
1,000 mcg tablet
escitalopram oxalate 10 mg tablet 10 mg PO DAILY Depression 10/20/23 10/20/23 History
midodrine 5 mg tablet 5 mg PO TID orthostasis - low 10/20/23 10/20/23 History
blood pressure
prednisone 20 mg tablet 20 mg PO DAILY MYOPATHY 10/20/23 10/20/23 History
Review of Systems
-
A 10 point review of systems was completed, and was negative except as per HPI.
Physical Exam
Vital Signs
Temp Pulse Resp BP Pulse Ox
98 F 70 18 165/77 97
10/27/23 15:31 10/27/23 15:31 10/27/23 15:31 10/27/23 15:31 10/27/23 15:31
Body Mass Index (BMI) 26.7
Lab Results
10/27/23 08:01
10/27/23 08:01
WBC 11.0 10^3/uL (4.8-10.8) H 10/27/23 08:01
Hgb 11.6 g/dL (13.0-18.0) L 10/27/23 08:01
Hct 32.5 % (39.0-52.0) L 10/27/23 08:01
Plt Count 179 10^3/uL (130-400) 10/27/23 08:01
Abs Immat Gran (auto) 0.5 10^3/uL (0-0.05) H 10/25/23 04:39
Neutrophils % 69.5 % (42.2-75.2) 10/25/23 04:39
Physical Exam
General: No Apparent Distress
GI: Soft, Non Tender and Non Distended
Skin: Warm and Dry
Neuro: AO x 3
Psych: Calm
Data Reviewed
-
Medical Tests (Nuc Med, Echo etc): Image Personally Visualized and interpreted, Discussed with Physician and Discussed with Patient
Assessment / Plan
-
77M PPD1 s/p ERCP for choledocholithiasis c/b duodenal perforation controlled with endoscopic clip; ductal stone was not retrieved
AFVSS, denies abd pain, denies n/v
Labs OK
UGI without evidence of extravasation
Plan:
DC NGT and start clears
Abx per ID
DVT ppx
Ambulate
Will follow
--- NOTE | 2023-10-27 16:03 | W.PN.UPDATE ---
Update Note
Progress Note Update
reviewed UGI with Dr. Sunshine as noted. Ok for clear diet, NGT out per surgery and updated.
10/26 UGI
1. No fluoroscopic evidence for persistent duodenal perforation or leak.
2. OVESCO clip in the proximal duodenum at the site of the treated duodenal perforation.
3. 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
4. 1.3 cm diverticulum protruding medially from the 2nd portion of the duodenum.
5. Small hiatal hernia.
6. Nasogastric tube terminating in the distal esophagus (advancement by [address] the tip in the lumen of the stomach).
[2023-10-27 16:34] LABS: Glucose - Point of Care 89 mg/dl (70-99)
[2023-10-27] MEDS: NOVOLOG FLEXPEN-LOW RESISTANCE SC (16:36)
[2023-10-27 19:30] VITALS: BP 150/70
--- NOTE | 2023-10-27 19:56 | W.PN.ID1 ---
Date of Service
Date of Service: October 27, 2023
Today's Communication
switched to unasyn
Assessment / Plan
Clinical sepsis
Bacteremia with Klebsiella pneumoniae
Leukocytosis -trending down
Urinary tract infection (complicated)
CAD
ASCVD
Inflammatory myopathy, chronic prednisone
CVA (2017
GERD
HTN
Dyslipidemia
CKD stage III
Cholelithiasis
Recommendations:
note chronic prednisone prednisone 20 mg for inflammatory myopathy, was on stress doses earlier this admission
ERCP showed duodenal perforation s/p repaid
Adjusted to unasyn - follow clinically eventual transition to orals
����������������������������������������������������������
Chief Complaint
-: Clinical Sepsis, UTI, Bacteremia and Other (choledocholithiasis )
Subjective / Review of Systems
afebrile
in good spirits, no complaints
duodenal perforation seen in the OR
Vital Signs / Physical Exam
Vital Signs
Vital Signs
Temp Pulse Resp BP Pulse Ox
98 F 70 18 165/77 97
10/27/23 15:31 10/27/23 15:31 10/27/23 15:31 10/27/23 15:31 10/27/23 15:31
Physical Exam
Constitutional: No Acute Distress
Cardiovascular: Regular Rate and S1/S2; Negative Murmur or Rub
Pulmonary: Clear and Symmetric; Negative Wheezes or Rales
Gastrointestinal: Soft, Non Tender, Non Distended and Normal Bowel Sounds
Skin: Warm and Dry; Negative Rash or Jaundice
Objective Data
Lab Data
Lab Results
10/27/23 08:01
10/27/23 08:01
ESR 68 mm/hour (0-20) H 10/22/23 05:56
PT 17.2 Sec (11.4-14.6) H 10/20/23 17:03
INR 1.40 10/20/23 17:03
APTT 34.7 Sec (23.4-35.0) 10/20/23 17:03
Estimated Creat Clear 85 ml/min 10/27/23 08:01
Lactic Acid 1.2 mmol/L (0.7-2.0) 10/22/23 05:56
Total Bilirubin 0.4 mg/dl (0.2-1.3) 10/27/23 08:01
AST 36 U/L (17-59) 10/27/23 08:01
ALT 24 U/L (0-50) 10/27/23 08:01
Alkaline Phosphatase 99 U/L (38-126) 10/27/23 08:01
C-Reactive Protein 133.70 mg/L (0.0-10.00) H 10/24/23 06:19
Most recent labs reviewed.
Micro Results:
10/22/23 12:31 Blood Culture - Final
Blood/Venous No Growth - Final Report
10/20/23 09:20 Blood Culture - Final
Blood/Venous Klebsiella pneumoniae
Gram Stain - Final
10/20/23 11:00 Salmonella/Shigella Culture - Final
Feces/Stool No Salmonella, Shigella, Aeromonas or Plesiomonas species
isolated.
Campylobacter Culture - Final
No Campylobacter species isolated.
Shiga Toxin Test - Final
No E. coli Shiga Toxin 1 or 2 detected.
10/20/23 08:22 Urine Culture - Final
Urine Klebsiella pneumoniae
10/20/23 11:00 C. difficile GDH Antigen & Toxins - Final
Feces/Stool Negative for toxigenic C.difficile
Imaging:
10/20/2023 CT abdomen/pelvis without contrast: Choledocholithiasis noted. A 5 mm calcified gallstone within the distal common bile duct with additional calcified gallstones noted within the gallbladder lumen and with mild gallbladder distention.
Mildly thickened bladder with foci of gas seen anteriorly. No evidence for hydronephrosis or nephrolithiasis. Please see full dictation for additional detail. Film personally viewed.
Care Review
Plan reviewed with: Other Provider (Abbi veras)
[2023-10-27] MEDS: SOLU-CORTEF 25 MG IV (21:00)
[2023-10-27 21:39] LABS: Glucose - Point of Care 99 mg/dl (70-99)
[2023-10-27 23:15] VITALS: BP 147/71
[2023-10-28] VITALS (7 sets, daily range): BP systolic 104–160; BP diastolic 63–80; PULSE 97; O2SAT 98
[2023-10-28] MEDS: UNASYN IV ×4 (03:59→21:25)
[2023-10-28] MEDS: NSS 1000 IV (04:00)
--- NOTE | 2023-10-28 07:49 | W.PN.GI.CBS2 ---
Addendum entered and electronically signed by Rosa Tavarez MD 10/28/23 08:18:
I saw and examined the patient.
The PACK MASTER's note was reviewed and I agree with the note.
Comment: Status post duodenal perforation after dilatation of duodenal stenosis and attempted ERCP status post OVESCO clip and upper GI postprocedure with no leak, tolerating clear liquids and has no abdominal pain and no tenderness on exam, no
fever. Continue Unasyn, will advance to full liquids and can follow-up with Dr. Ybarra as outpatient to discuss timing of eventual treatment for the choledocholithiasis.
Original Note:
Today's Communication / Plan
-
s/p attempted ERCP with duodenal stenosis, dilation and perforation with ovesco clip placement
s/p UGI 8.14 with no leak
AM labs pending
tolerating clear diet, will advance to full liquid diet
surgery following
will need to determine plan to eventually treat choledocholithiasis per Dr. Ybarra
Lovenox high dose remains on hold will review with Dr. Tavarez resuming today
updated last PM
will follow
Assessment / Plan
-
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 He was sent to 09/11 with weakness/sepsis with concern for klebsiella
bacteremia/UTI. He was treated with antibiotics and returned to rehab 09/16 with discharged 10/04. He returned to ER 10/19 with shaking chills. He has blood noted in urine and on admission noted with gram neg bacilli on blood and urine culture. He was
noted with elevated lactate up to 6.2 then down to 2.7 and further rise today to 4.1. LFT's noted normal but required pressors on admission for hypotension. Since admission pt had CT and US with noted choledocholithiasis asked to eval for ERCP.
In reviewing chart pt also with know CBD stone on MRI in May. Pt has been scheduled 3 times for ERCP [address] Ybarra but held with other medical problems. Now s/p attempted ERCP with duodenal stenosis, dilastion and placement of OVESCO clip. UGI
10/26 no leak.
10/25 EUS - Two stones were visualized endosonographically in CBD, multiple stones in gallbladder
10/25- ERCP - Acquired duodenal stenosis. dilation with attempt to advance scope with perforation, with placement of OVESCO clip in duodenum
10/27/23 UGI/SBFT
1. No fluoroscopic evidence for persistent duodenal perforation or leak.
2. OVESCO clip in the proximal duodenum at the site of the treated duodenal perforation.
3. 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
4. 1.3 cm diverticulum protruding medially from the 2nd portion of the duodenum.
5. Small hiatal hernia.
6. Nasogastric tube terminating in the distal esophagus (advancement by [address] the tip in the lumen of the stomach).
-s/p attempted ERCP with duodenal stenosis, dilation and attempted advance scope with perforation and placement
-persistent choledocholithiasis with normal LFT's no abdominal pain
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
-s/p sepsis with elevated lactate, leukocytosis, hypotension requiring pressor on admission
-gram neg bacilli + blood and urine
-recent klebsiella UTI/bacteremia 09/12/23
-leukocytosis
-hx DVT on Eliquis
-thrombocytopenia
-elevated CRP
other med problems:
hip ORIF 06/2023
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
CVA
CAD
ASCVD
CVA
GERD
HTN
Dyslipidemia
CKD stage III
Cholelithiasis
PLAN:
s/p attempted ERCP with duodenal stenosis, dilation and perforation with ovesco clip placement
s/p UGI 8.14 with no leak
AM labs pending
tolerating clear diet, will advance to full liquid diet
surgery following
will need to determine plan to eventually treat choledocholithiasis per Dr. Ybarra
Lovenox high dose remains on hold will review with Dr. Tavarez resuming today
updated last PM
will follow
Subjective
Subjective
Date of Service: October 28, 2023
tolerating clear diet, brown stool 10/26 no abdominal pain
Objective
Data Reviewed
Laboratory Data:
Laboratory Results
PT 17.2 Sec (11.4-14.6) H 10/20/23 17:03
INR 1.40 10/20/23 17:03
APTT 34.7 Sec (23.4-35.0) 10/20/23 17:03
Phosphorus 2.5 mg/dl (2.5-4.5) 10/23/23 06:31
Magnesium 1.7 mg/dl (1.6-2.3) 10/26/23 07:16
Total Bilirubin 0.4 mg/dl (0.2-1.3) 10/27/23 08:01
AST 36 U/L (17-59) 10/27/23 08:01
ALT 24 U/L (0-50) 10/27/23 08:01
Alkaline Phosphatase 99 U/L (38-126) 10/27/23 08:01
Lipase 81 U/L (23-300) 10/20/23 08:22
Vital Signs and I&O:
Vital Signs
Temp Pulse Resp BP Pulse Ox
97.6 F 80 16 158/72 97
10/28/23 03:12 10/28/23 03:12 10/28/23 03:12 10/28/23 03:12 10/28/23 03:12
I&O
10/27/23 10/28/23 10/29/23
06:59 06:59 06:59
Intake Total 1680 / 1680 2220 / 2220
Output Total 3275 / 3275 2275 / 2275
Balance -1595 / -1595 -55 / -55
Physical Exam
Physical Exam
HEENT: Anicteric and Moist mucous membranes
Cardiology: Normal Sinus Rhythm
Pulmonary: Clear
GI: Soft, Non Distended and Non Tender
Extremities: No Edema
Neuro: Non Focal
[2023-10-28 08:01] LABS: Glucose - Point of Care 106 mg/dl (70-99)
[2023-10-28 08:08] LABS: % Basophils 0.2 % (0-2); % Eosinophils 0.2 % (0-6); % Immature Granulocytes 3.4 % (0-0.5); % Lymphocytes 13.3 % (20.5-51.1); % Monocytes 5.9 % (1.7-9.3); Absolute Immature Granulocytes 0.4 10^3/uL (0-0.05); Absolute Lymphocytes 1.6 10^3/uL (1.2-3.4); Absolute Monocytes 0.7 10^3/uL (0.1-0.6); Absolute Neutrophils 9.3 10^3/uL (1.4-6.5); Hematocrit 29.6 % (39.0-52.0); Hemoglobin 10.3 g/dL (13.0-18.0); Mean Corp Hgb Conc. 34.8 g/dL (33.0-37.0); Mean Corpuscular Hgb 34.2 pg (27.0-31.0); Mean Corpuscular Volume 98.3 fL (80.0-94.0); Mean Platelet Volume 11.1 fL (7.4-10.4); Nucleated Red Blood Cells % 0 % (-); Platelet Count 208 10^3/uL (130-400); Red Blood Cell Count 3.01 10^6/uL (4.70-6.10); Red Cell Dist. Width 15.6 % (11.5-14.5)
[2023-10-28 08:38] LABS: ALT (SGPT) 22 U/L (0-50); AST (SGOT) 31 U/L (17-59); Albumin 2.3 g/dl (3.5-5.0); Alkaline Phosphatase 104 U/L (38-126); Blood Urea Nitrogen 22 mg/dl (9-20); Calcium 8.2 mg/dl (8.4-10.2); Carbon Dioxide 26 mmol/L (22-30); Chloride 106 mmol/L (98-107); Estimated Creatinine Clearance 75 ml/min; Glucose 71 mg/dl (70-99); Potassium 4.1 mmol/L (3.5-5.1); Sodium 134 mmol/L (135-145); Total Bilirubin 0.5 mg/dl (0.2-1.3); Total Protein 4.6 g/dl (6.3-8.2); eGFR > 60.00
--- NOTE | 2023-10-28 08:51 | W.PN.GS2 ---
Today's Communication / Plan
-
`
Assessment / Plan
-
Assessment: 77-year-old male initially admitted with sepsis found to have choledocholithiasis. Underwent attempted ERCP 10/26/2023 but duodenal stenosis was noted requiring dilation and subsequent duodenal perforation visualized. Controlled with an
OVESCO clip.
Upper GI contrast imaging without evidence of leak. Moderate stricture first portion of the duodenum but patient does not appear to have gastric outlet obstruction symptomatology. Duodenal diverticulum noted as well.
AFVSS
Doing well without any clinical signs of peritonitis
Plan: Agree with cautious and slow dietary advancement as per GI.
Ultimately would slowly advance to soft, low fibrous food, small portions scattered throughout the day and protein supplements.
Given clinical stability from standpoint of duodenal perforation managed with endoscopic clipping will follow peripherally and defer on further care per GI service.
Subjective Data
-
Date of Service: October 28, 2023
Patient seen and examined in follow-up this a.m.
States that he is feeling well
Tolerating clear liquid diet without abdominal pain or discomfort.
No nausea, no vomiting, offers no additional specific medical complaints or concerns
Objective Data
-
Intake and Output
10/27/23 10/28/23 10/29/23
06:59 06:59 06:59
Intake Total 1680 / 1680 2220 / 2220
Output Total 3275 / 3275 2275 / 2275
Balance -1595 / -1595 -55 / -55
Intake:
Oral fluids 60 / 60 240 / 240
IV fluids (Total) 1420 / 1420 1500 / 1500
NSS 100 / 100
IV piggybacks 200 / 200 480 / 480
Output:
Gastrointestinal tube output (
Total)
[place]
Urine, Voided 3250 / 3250 2275 / 2275
Other:
Number of approximated SMALL 1
amounts of urine
Vital Signs
Temp Pulse Resp BP Pulse Ox
98.1 F 71 22 160/74 97
10/28/23 07:33 10/28/23 07:33 10/28/23 07:33 10/28/23 07:33 10/28/23 07:33
Lab Results
10/28/23 06:03
10/28/23 06:03
Calcium 8.2 mg/dl (8.4-10.2) L 10/28/23 06:03
Phosphorus 2.5 mg/dl (2.5-4.5) 10/23/23 06:31
Magnesium 1.7 mg/dl (1.6-2.3) 10/26/23 07:16
Total Bilirubin 0.5 mg/dl (0.2-1.3) 10/28/23 06:03
Direct Bilirubin 0.1 mg/dl (0.0-0.4) 10/25/23 04:39
AST 31 U/L (17-59) 10/28/23 06:03
ALT 22 U/L (0-50) 10/28/23 06:03
Alkaline Phosphatase 104 U/L (38-126) 10/28/23 06:03
Total Protein 4.6 g/dl (6.3-8.2) L 10/28/23 06:03
Albumin 2.3 g/dl (3.5-5.0) L 10/28/23 06:03
Physical Exam
-
NAD AAOx3
ABD: Soft, essentially nontender even on palpation right upper quadrant maybe just slight tenderness. No rebound, no rigidity, no guarding.
[2023-10-28] MEDS: NOVOLOG FLEXPEN-LOW RESISTANCE SC ×3 (08:55→16:49)
[2023-10-28] MEDS: LEXAPRO 10 MG PO (09:12)
[2023-10-28] MEDS: NSS (PRESERVATIVE FREE) 10 ML IV ×2 (09:13→19:50)
[2023-10-28] MEDS: PROTONIX IV 40 MG IV ×2 (09:13→19:50)
[2023-10-28] MEDS: SOLU-CORTEF 25 MG IV (09:13)
[2023-10-28 11:24] LABS: Glucose - Point of Care 114 mg/dl (70-99)
[2023-10-28] MEDS: KCL ELIXIR 40 MEQ PO (13:24)
[2023-10-28] MEDS: NSS IV (13:26)
[2023-10-28] MEDS: NSS with KCL 20 MEQ 1000 IV (13:49)
--- NOTE | 2023-10-28 15:28 | CM ---
CM met with patient who is 'ready to go'...he is eager to return home, but also realizes that he needs a few more days of recuperation and therapy before he can consider returning home.
PT has recommended SNF, however [facility] will not consider this option.
CM will continue to follow for d/c planning needs, and will encourage reconsideration of SNF admission.
Plan: Discharge to home with VN vs. SNF
--- NOTE | 2023-10-28 15:43 | W.PN.ID1 ---
Date of Service
Date of Service: October 28, 2023
Today's Communication
c/w unasyn, when able to take oral pills can switch to augmentin; 5 day course 10/26-10/30
Assessment / Plan
Clinical sepsis
Bacteremia with Klebsiella pneumoniae
Leukocytosis -trending down
Urinary tract infection (complicated)
CAD
ASCVD
Inflammatory myopathy, chronic prednisone
CVA (2017
GERD
HTN
Dyslipidemia
CKD stage III
Cholelithiasis
Recommendations:
note chronic prednisone prednisone 20 mg for inflammatory myopathy, was on stress doses earlier this admission
note duodenal perforation s/p repair
c/w unasyn, when able to take oral pills can switch to augmentin; 5 day course 10/26-10/30
����������������������������������������������������������
Chief Complaint
-: Clinical Sepsis, UTI, Bacteremia and Other (choledocholithiasis )
Subjective / Review of Systems
afebrile
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
UGI done
Vital Signs / Physical Exam
Vital Signs
Vital Signs
Temp Pulse Resp BP Pulse Ox
97.8 F 88 20 104/63 99
10/28/23 11:18 10/28/23 11:18 10/28/23 11:18 10/28/23 11:18 10/28/23 11:18
Physical Exam
Constitutional: No Acute Distress
Cardiovascular: Regular Rate and S1/S2; Negative Murmur or Rub
Pulmonary: Clear and Symmetric; Negative Wheezes or Rales
Gastrointestinal: Soft, Non Tender, Distended (mildly) and Normal Bowel Sounds
Skin: Warm and Dry; Negative Rash or Jaundice
Objective Data
Lab Data
Lab Results
10/28/23 06:03
10/28/23 06:03
ESR 68 mm/hour (0-20) H 10/22/23 05:56
PT 17.2 Sec (11.4-14.6) H 10/20/23 17:03
INR 1.40 10/20/23 17:03
APTT 34.7 Sec (23.4-35.0) 10/20/23 17:03
Estimated Creat Clear 75 ml/min 10/28/23 06:03
Lactic Acid 1.2 mmol/L (0.7-2.0) 10/22/23 05:56
Total Bilirubin 0.5 mg/dl (0.2-1.3) 10/28/23 06:03
AST 31 U/L (17-59) 10/28/23 06:03
ALT 22 U/L (0-50) 10/28/23 06:03
Alkaline Phosphatase 104 U/L (38-126) 10/28/23 06:03
C-Reactive Protein 133.70 mg/L (0.0-10.00) H 10/24/23 06:19
Most recent labs reviewed.
Micro Results:
10/22/23 12:31 Blood Culture - Final
Blood/Venous No Growth - Final Report
10/20/23 09:20 Blood Culture - Final
Blood/Venous Klebsiella pneumoniae
Gram Stain - Final
10/20/23 11:00 Salmonella/Shigella Culture - Final
Feces/Stool No Salmonella, Shigella, Aeromonas or Plesiomonas species
isolated.
Campylobacter Culture - Final
No Campylobacter species isolated.
Shiga Toxin Test - Final
No E. coli Shiga Toxin 1 or 2 detected.
10/20/23 08:22 Urine Culture - Final
Urine Klebsiella pneumoniae
10/20/23 11:00 C. difficile GDH Antigen & Toxins - Final
Feces/Stool Negative for toxigenic C.difficile
Imaging:
10/20/2023 CT abdomen/pelvis without contrast: Choledocholithiasis noted. A 5 mm calcified gallstone within the distal common bile duct with additional calcified gallstones noted within the gallbladder lumen and with mild gallbladder distention.
Mildly thickened bladder with foci of gas seen anteriorly. No evidence for hydronephrosis or nephrolithiasis. Please see full dictation for additional detail. Film personally viewed.
[2023-10-28 16:20] LABS: Glucose - Point of Care 97 mg/dl (70-99)
--- NOTE | 2023-10-28 17:00 | W.PN.HOSP.TC ---
Today's Communication/Plan
-
Full liquid diet
PPI.
Antibiotics.
Transition back to oral steroid maintenance for myopathy.
Off anticoagulation
Mechanical DVT prophylaxis
Physical therapy evaluation
Assessment / Plan
Assessment / Plan
Impression:
77 years old male with extensive past medical history including recent UTI and sepsis with Klebsiella bacteremia presents with chills and rigors, reported gross hematuria (self clear) at home
Sepsis (fever, tachycardia, lactic acidosis, neutropenia)
Complicated urinary tract infection with Klebsiella bacteremia
Hematuria open presentation, resolved
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
Recent hospitalization with sepsis complicated UTI with Klebsiella bacteremia.
Conditions prior to admission:
CAD
History of CVA 2018 baseline essential hypertension, hold with chronic hypotension on midodrine prior to presentation but
Dyslipidemia baseline CKD stage III by records.
Choledocholithiasis.
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
GERD
Depression
PLAN:
Sepsis secondary to complicated urinary tract infection with Klebsiella bacteremia.
Septic shock present on admission.
Lactic acidosis.
CT scan of the abdomen pelvis upon admission with no urinary tract pathology.
Initially with hematuria, currently resolved.
ID input appreciated
Continue antibiotics
Choledocholithiasis, less likely represents source of bacteremia over this hospitalization.
No abdominal pain with normal LFTs and pancreatic enzymes upon presentation
Status post ERCP 10/25 with duodenal stenosis, dilation and perforation with ovesco clip placement.
10/25 EUS - Two stones were visualized endosonographically in CBD, multiple stones in gallbladder
10/25- ERCP - Acquired duodenal stenosis. dilation with attempt to advance scope with perforation, with placement of OVESCO clip in duodenum
Upper GI series 10/26 with no extravasation
Advance to full liquid diet. If tolerates plan is to advance to soft diet with supplements.
Continue PPI.
Continue antibiotics/Unasyn
Follow-up with cardiology as outpatient for further determination of possible approach in terms of choledocholithiasis.
Left lower extremity DVT
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
No evidence for deep venous thrombosis from the common femoral through the popliteal vein. The right peroneal vein and the proximal greater saphenous vein also appear patent.
807 repeat Doppler over this admission with no evidence of DVT.
On Eliquis prior to admission later changed to weight-based Lovenox.
Given resolved deep venous thrombosis, anticoagulation will be discontinued.
Continue mechanical DVT prophylaxis
If stable GI issues, consider initiate prophylactic dose of heparin or Lovenox.
ASCVD
History of CVA baseline essential hypertension
Dyslipidemia.
Echocardiogram with preserved LVEF and no valvular abnormalities.
Continue aspirin
On Coreg prior to presentation
Inflammatory myopathy
Also has been worked up for PMR, prior workup not consistent with myasthenia gravis.
Continue preadmission steroid maintenance currently on prednisone 20 mg daily.
Outpatient neurology follow-up for further taper
GERD continue PPI.
Depression continue escitalopram
Full code.
DVT prophylaxis hold Eliquis as above.
Anticipated Discharge: > 48 hours
Subjective/Interval History
-
Date of Service: October 28, 2023
Objective Data
-
Labs:
Laboratory Results
10/28/23
06:03
WBC 12.0 H
Hgb 10.3 L
Hct 29.6 L
Plt Count 208
Sodium 134 L
Potassium 4.1
Chloride 106
Carbon Dioxide 26
BUN 22 H
Creatinine 0.9
Glucose 71
Calcium 8.2 L
Total Bilirubin 0.5
AST 31
ALT 22
Alkaline Phosphatase 104
Vital Signs:
Vital Signs
Temp Pulse Resp BP Pulse Ox
98.3 F 78 22 150/71 98
10/28/23 15:52 10/28/23 15:52 10/28/23 15:52 10/28/23 15:52 10/28/23 15:52
I&O
10/27/23 10/28/23 10/29/23
06:59 06:59 06:59
Intake Total 1680 / 1680 2220 / 2220
Output Total 3275 / 3275 2275 / 2275
Balance -1595 / -1595 -55 / -55
Physical Exam
-
General: Well Developed and No Apparent Distress
HEENT: Normocephalic, Atraumatic and Moist Mucous Membranes
Respiratory: Clear to Auscultation
Cardiac: Regular Rhythm and S1/S2; Negative Murmur, Rub or Gallop
GI: Soft, Nontender, Nondistended and Normal Bowel Sounds; Negative Organomegaly
Rectal: Deferred by Provider
Musculoskeletal: No Clubbing, No Cyanosis and No Edema
Skin: Negative Rash
Neuro: Awake, Alert, Oriented and Nonfocal/Grossly Intact
[2023-10-28 21:23] LABS: Glucose - Point of Care 125 mg/dl (70-99)
[2023-10-28 23:00] LABS: Glucose - Point of Care 94 mg/dl (70-99)
[2023-10-29] VITALS (7 sets, daily range): BP systolic 137–158; BP diastolic 63–91; PULSE 84; O2SAT 96
[2023-10-29] MEDS: UNASYN IV ×2 (03:04→10:20)
[2023-10-29] MEDS: NSS with KCL 20 MEQ 1000 IV ×2 (03:47→17:11)
[2023-10-29 05:55] LABS: Glucose - Point of Care 73 mg/dl (70-99)
[2023-10-29 08:15] LABS: Glucose - Point of Care 73 mg/dl (70-99)
[2023-10-29] MEDS: NOVOLOG FLEXPEN-LOW RESISTANCE SC ×3 (08:22→16:01)
[2023-10-29] MEDS: PROTONIX IV 40 MG IV ×2 (08:22→19:43)
[2023-10-29] MEDS: NSS (PRESERVATIVE FREE) 10 ML IV ×2 (08:23→19:43)
[2023-10-29] MEDS: LEXAPRO 10 MG PO (08:25)
[2023-10-29] MEDS: DELTASONE 20 MG PO (08:25)
[2023-10-29 09:30] LABS: % Basophils 0.3 % (0-2); % Eosinophils 0.4 % (0-6); % Immature Granulocytes 2.9 % (0-0.5); % Lymphocytes 11.1 % (20.5-51.1); % Monocytes 6.3 % (1.7-9.3); Absolute Eosinophils 0.1 10^3/uL (0-0.7); Absolute Immature Granulocytes 0.4 10^3/uL (0-0.05); Absolute Lymphocytes 1.5 10^3/uL (1.2-3.4); Absolute Monocytes 0.9 10^3/uL (0.1-0.6); Absolute Neutrophils 10.7 10^3/uL (1.4-6.5); Hematocrit 33.7 % (39.0-52.0); Hemoglobin 11.5 g/dL (13.0-18.0); Mean Corp Hgb Conc. 34.1 g/dL (33.0-37.0); Mean Corpuscular Hgb 35.1 pg (27.0-31.0); Mean Corpuscular Volume 102.7 fL (80.0-94.0); Mean Platelet Volume 10.3 fL (7.4-10.4); Nucleated Red Blood Cells % 0 % (-); Platelet Count 241 10^3/uL (130-400); Red Blood Cell Count 3.28 10^6/uL (4.70-6.10); Red Cell Dist. Width 15.8 % (11.5-14.5); White Blood Cell Count 13.6 10^3/uL (4.8-10.8)
--- NOTE | 2023-10-29 09:30 | VNURNOTE ---
Watching D/C plans. Resumption Referral placed in [facility] for [facility] and accepted if patient cleared to go home.
[2023-10-29 09:55] LABS: ALT (SGPT) 21 U/L (0-50); AST (SGOT) 30 U/L (17-59); Albumin 2.5 g/dl (3.5-5.0); Alkaline Phosphatase 96 U/L (38-126); Blood Urea Nitrogen 16 mg/dl (9-20); Calcium 8.5 mg/dl (8.4-10.2); Carbon Dioxide 27 mmol/L (22-30); Chloride 105 mmol/L (98-107); Estimated Creatinine Clearance 97 ml/min; Glucose 111 mg/dl (70-99); Potassium 4.1 mmol/L (3.5-5.1); Sodium 134 mmol/L (135-145); Total Bilirubin 0.6 mg/dl (0.2-1.3); Total Protein 5.1 g/dl (6.3-8.2); eGFR > 60.00
[2023-10-29 11:42] LABS: Glucose - Point of Care 112 mg/dl (70-99)
--- NOTE | 2023-10-29 12:37 | W.PN.ID1 ---
Date of Service
Date of Service: October 29, 2023
Today's Communication
switch to augmentin; 5 day course 10/26-10/30
ID service will no longer actively follow this patient please recall for further questions
Assessment / Plan
Clinical sepsis
Bacteremia with Klebsiella pneumoniae
Leukocytosis -trending down
Urinary tract infection (complicated)
CAD
ASCVD
Inflammatory myopathy, chronic prednisone
CVA (2018
GERD
HTN
Dyslipidemia
CKD stage III
Cholelithiasis
Recommendations:
on steroids
note duodenal perforation s/p repair
switch to augmentin; 5 day course 10/26-10/30
ID service will no longer actively follow this patient please recall for further questions
����������������������������������������������������������
Chief Complaint
-: Clinical Sepsis, UTI, Bacteremia and Other (choledocholithiasis )
Subjective / Review of Systems
afebrile
no events overnight
no abdominal pain
Vital Signs / Physical Exam
Vital Signs
Vital Signs
Temp Pulse Resp BP Pulse Ox
97.9 F 82 22 155/70 99
10/29/23 11:32 10/29/23 11:32 10/29/23 11:32 10/29/23 11:32 10/29/23 11:32
Physical Exam
Constitutional: No Acute Distress
Cardiovascular: Regular Rate and S1/S2; Negative Murmur or Rub
Pulmonary: Clear and Symmetric; Negative Wheezes or Rales
Gastrointestinal: Soft, Non Tender, Non Distended and Normal Bowel Sounds
Skin: Warm and Dry; Negative Rash or Jaundice
Objective Data
Lab Data
Lab Results
10/29/23 09:19
10/29/23 09:19
ESR 68 mm/hour (0-20) H 10/22/23 05:56
PT 17.2 Sec (11.4-14.6) H 10/20/23 17:03
INR 1.40 10/20/23 17:03
APTT 34.7 Sec (23.4-35.0) 10/20/23 17:03
Estimated Creat Clear 97 ml/min 10/29/23 09:19
Lactic Acid 1.2 mmol/L (0.7-2.0) 10/22/23 05:56
Total Bilirubin 0.6 mg/dl (0.2-1.3) 10/29/23 09:19
AST 30 U/L (17-59) 10/29/23 09:19
ALT 21 U/L (0-50) 10/29/23 09:19
Alkaline Phosphatase 96 U/L (38-126) 10/29/23 09:19
C-Reactive Protein 133.70 mg/L (0.0-10.00) H 10/24/23 06:19
Most recent labs reviewed.
Micro Results:
10/22/23 12:31 Blood Culture - Final
Blood/Venous No Growth - Final Report
10/20/23 09:20 Blood Culture - Final
Blood/Venous Klebsiella pneumoniae
Gram Stain - Final
10/20/23 11:00 Salmonella/Shigella Culture - Final
Feces/Stool No Salmonella, Shigella, Aeromonas or Plesiomonas species
isolated.
Campylobacter Culture - Final
No Campylobacter species isolated.
Shiga Toxin Test - Final
No E. coli Shiga Toxin 1 or 2 detected.
10/20/23 08:22 Urine Culture - Final
Urine Klebsiella pneumoniae
10/20/23 11:00 C. difficile GDH Antigen & Toxins - Final
Feces/Stool Negative for toxigenic C.difficile
Imaging:
10/20/2023 CT abdomen/pelvis without contrast: Choledocholithiasis noted. A 5 mm calcified gallstone within the distal common bile duct with additional calcified gallstones noted within the gallbladder lumen and with mild gallbladder distention.
Mildly thickened bladder with foci of gas seen anteriorly. No evidence for hydronephrosis or nephrolithiasis. Please see full dictation for additional detail. Film personally viewed.
--- NOTE | 2023-10-29 13:54 | W.PN.GI.CBS2 ---
Today's Communication / Plan
-
Continue full liquid diet
Assessment / Plan
-
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 He was sent to 09/11 with weakness/sepsis with concern for klebsiella
bacteremia/UTI. He was treated with antibiotics and returned to rehab 09/16 with discharged 10/04. He returned to ER 10/19 with shaking chills. He has blood noted in urine and on admission noted with gram neg bacilli on blood and urine culture. He was
noted with elevated lactate up to 6.2 then down to 2.7 and further rise today to 4.1. LFT's noted normal but required pressors on admission for hypotension. Since admission pt had CT and US with noted choledocholithiasis asked to eval for ERCP.
In reviewing chart pt also with know CBD stone on MRI in May. Pt has been scheduled 3 times for ERCP with Dr. Ybarra but held with other medical problems. Now s/p attempted ERCP with duodenal stenosis, dilastion and placement of OVESCO clip. UGI
10/26 no leak.
10/25 EUS - Two stones were visualized endosonographically in CBD, multiple stones in gallbladder
10/25- ERCP - Acquired duodenal stenosis. dilation with attempt to advance scope with perforation, with placement of OVESCO clip in duodenum
10/27/23 UGI/SBFT
1. No fluoroscopic evidence for persistent duodenal perforation or leak.
2. OVESCO clip in the proximal duodenum at the site of the treated duodenal perforation.
3. 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
4. 1.3 cm diverticulum protruding medially from the 2nd portion of the duodenum.
5. Small hiatal hernia.
6. Nasogastric tube terminating in the distal esophagus (advancement by [address] the tip in the lumen of the stomach).
-s/p attempted ERCP with duodenal stenosis, dilation and attempted advance scope with perforation and placement
-persistent choledocholithiasis with normal LFT's no abdominal pain
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
-s/p sepsis with elevated lactate, leukocytosis, hypotension requiring pressor on admission
-gram neg bacilli + blood and urine
-recent klebsiella UTI/bacteremia 09/12/23
-leukocytosis
-hx DVT on Eliquis
-thrombocytopenia
-elevated CRP
other med problems:
hip ORIF 06/2023
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
CVA
CAD
ASCVD
CVA
GERD
HTN
Dyslipidemia
CKD stage III
Cholelithiasis
PLAN:
s/p attempted ERCP with duodenal stenosis, dilation and perforation with ovesco clip placement
s/p UGI 10/26 with no leak. Tolerating liquid diet
Continue full liquid diet. Will advance to low residual diet if asymptomatic tomorrow morning
Continue antibiotics as per ID
Follow-up with Dr. Ybarra as outpatient-to discuss management plan for choledocholithiasis
Total Time Spent with Patient (in minutes): 35
Subjective
Subjective
Date of Service: October 29, 2023
Denies any abdominal pain/nausea/vomiting. Tolerating full liquid diet
Objective
Data Reviewed
Laboratory Data:
Laboratory Results
10/29/23 09:19
10/29/23 09:19
Laboratory Results
PT 17.2 Sec (11.4-14.6) H 10/20/23 17:03
INR 1.40 10/20/23 17:03
APTT 34.7 Sec (23.4-35.0) 10/20/23 17:03
Phosphorus 2.5 mg/dl (2.5-4.5) 10/23/23 06:31
Magnesium 1.7 mg/dl (1.6-2.3) 10/26/23 07:16
Total Bilirubin 0.6 mg/dl (0.2-1.3) 10/29/23 09:19
AST 30 U/L (17-59) 10/29/23 09:19
ALT 21 U/L (0-50) 10/29/23 09:19
Alkaline Phosphatase 96 U/L (38-126) 10/29/23 09:19
Lipase 81 U/L (23-300) 10/20/23 08:22
Vital Signs and I&O:
Vital Signs
Temp Pulse Resp BP Pulse Ox
97.9 F 82 22 155/70 99
10/29/23 11:32 10/29/23 11:32 10/29/23 11:32 10/29/23 11:32 10/29/23 11:32
I&O
10/28/23 10/29/23 10/30/23
06:59 06:59 06:59
Intake Total 2220 / 2220 2145 / 2145
Output Total 2275 / 2275 2150 / 2150
Balance -55 / -55 -5 / -5
Physical Exam
Physical Exam
GI: Soft, Non Distended and Non Tender
[2023-10-29] MEDS: AUGMENTIN 875 MG/125 MG 1 TABLET PO ×2 (14:45→19:37)
[2023-10-29 16:00] LABS: Glucose - Point of Care 127 mg/dl (70-99)
--- NOTE | 2023-10-29 16:09 | W.PN.HOSP.TC ---
Today's Communication/Plan
-
Full liquid diet
PPI
Antibiotics
Follow WBC (noted fluctuance 12�13.6 today.
Physical therapy evaluation.
Assessment / Plan
Assessment / Plan
Impression:
77 years old male with extensive past medical history including recent UTI and sepsis with Klebsiella bacteremia presents with chills and rigors, reported gross hematuria (self clear) at home
Sepsis (fever, tachycardia, lactic acidosis, neutropenia)
Complicated urinary tract infection with Klebsiella bacteremia
Hematuria open presentation, resolved
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
Recent hospitalization with sepsis complicated UTI with Klebsiella bacteremia.
Conditions prior to admission:
CAD
History of CVA 2018 baseline essential hypertension, hold with chronic hypotension on midodrine prior to presentation but
Dyslipidemia baseline CKD stage III by records.
Choledocholithiasis.
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
Lower extremity DVT on Eliquis [employer]
GERD
Depression
PLAN:
Sepsis secondary to complicated urinary tract infection with Klebsiella bacteremia.
Septic shock present on admission.
Lactic acidosis.
CT scan of the abdomen pelvis upon admission with no urinary tract pathology.
Initially with hematuria, currently resolved.
ID input appreciated
Continue antibiotics
Choledocholithiasis, less likely represents source of bacteremia over this hospitalization.
No abdominal pain with normal LFTs and pancreatic enzymes upon presentation
Status post attempted ERCP 10/25 with duodenal stenosis, dilation and perforation with ovesco clip placement.
10/25 EUS - Two stones were visualized endosonographically in CBD, multiple stones in gallbladder
10/25- ERCP - Acquired duodenal stenosis. dilation with attempt to advance scope with perforation, with placement of OVESCO clip in duodenum
Upper GI series 10/26 with no extravasation
Advance to full liquid diet. If tolerates plan is to advance to soft diet with supplements.
Continue PPI.
Continue antibiotics/Unasyn through 10/30
Follow-up with cardiology as outpatient for further determination of possible approach in terms of choledocholithiasis.
Left lower extremity DVT
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
No evidence for deep venous thrombosis from the common femoral through the popliteal vein. The right peroneal vein and the proximal greater saphenous vein also appear patent.
807 repeat Doppler over this admission with no evidence of DVT.
On Eliquis prior to admission later changed to weight-based Lovenox.
Given resolved deep venous thrombosis, anticoagulation will be discontinued.
Continue mechanical DVT prophylaxis
If stable GI issues, consider initiate prophylactic dose of heparin or Lovenox.
ASCVD
History of CVA baseline essential hypertension
Dyslipidemia.
Echocardiogram with preserved LVEF and no valvular abnormalities.
Continue aspirin
On Coreg prior to presentation
Inflammatory myopathy
Also has been worked up for PMR, prior workup not consistent with myasthenia gravis.
Continue preadmission steroid maintenance currently on prednisone 20 mg daily.
Outpatient neurology follow-up for further taper
GERD continue PPI.
Depression continue escitalopram
Full code.
DVT prophylaxis hold Eliquis as above.
Anticipated Discharge: > 48 hours
Subjective/Interval History
-
Date of Service: October 29, 2023
Objective Data
-
Labs:
Laboratory Results
10/29/23
09:19
WBC 13.6 H
Hgb 11.5 L
Hct 33.7 L
Plt Count 241
Sodium 134 L
Potassium 4.1
Chloride 105
Carbon Dioxide 27
BUN 16
Creatinine 0.7
Glucose 111 H
Calcium 8.5
Total Bilirubin 0.6
AST 30
ALT 21
Alkaline Phosphatase 96
Vital Signs:
Vital Signs
Temp Pulse Resp BP Pulse Ox
99 F 97 22 137/79 97
10/29/23 15:47 10/29/23 15:47 10/29/23 15:47 10/29/23 15:47 10/29/23 15:47
I&O
10/28/23 10/29/23 10/30/23
06:59 06:59 06:59
Intake Total 0 / 0 214 / 2144
Output Total 2274 / 2274 2149 / 2149
Balance -55 / -55 -5 / -5
Physical Exam
-
General: Well Developed and No Apparent Distress
HEENT: Normocephalic, Atraumatic and Moist Mucous Membranes
Respiratory: Clear to Auscultation
Cardiac: Regular Rhythm and S1/S2; Negative Murmur, Rub or Gallop
GI: Soft, Nontender, Nondistended and Normal Bowel Sounds; Negative Organomegaly
Rectal: Deferred by Provider
Musculoskeletal: No Clubbing, No Cyanosis and No Edema
Skin: Negative Rash
Neuro: Awake, Alert, Oriented and Nonfocal/Grossly Intact
[2023-10-29 21:36] LABS: Glucose - Point of Care 131 mg/dl (70-99)
[2023-10-30 03:18] VITALS: BP 152/76
[2023-10-30 07:51] LABS: Glucose - Point of Care 91 mg/dl (70-99)
[2023-10-30 07:55] VITALS: BP 168/76
[2023-10-30 07:58] LABS: % Basophils 0.4 % (0-2); % Eosinophils 0.4 % (0-6); % Immature Granulocytes 3.1 % (0-0.5); % Lymphocytes 15.6 % (20.5-51.1); % Monocytes 6.2 % (1.7-9.3); % Neutrophils 74.3 % (42.2-75.2); Absolute Immature Granulocytes 0.4 10^3/uL (0-0.05); Absolute Lymphocytes 1.7 10^3/uL (1.2-3.4); Absolute Monocytes 0.7 10^3/uL (0.1-0.6); Absolute Neutrophils 8.3 10^3/uL (1.4-6.5); Hematocrit 31.3 % (39.0-52.0); Hemoglobin 10.5 g/dL (13.0-18.0); Mean Corp Hgb Conc. 33.5 g/dL (33.0-37.0); Mean Corpuscular Hgb 33.7 pg (27.0-31.0); Mean Corpuscular Volume 100.3 fL (80.0-94.0); Mean Platelet Volume 10.7 fL (7.4-10.4); Nucleated Red Blood Cells % 0 % (-); Platelet Count 275 10^3/uL (130-400); Red Blood Cell Count 3.12 10^6/uL (4.70-6.10); Red Cell Dist. Width 15.7 % (11.5-14.5); White Blood Cell Count 11.1 10^3/uL (4.8-10.8)
[2023-10-30] MEDS: NSS (PRESERVATIVE FREE) 10 ML IV ×2 (08:19→20:00)
[2023-10-30] MEDS: PROTONIX IV 40 MG IV ×2 (08:19→20:00)
[2023-10-30] MEDS: DELTASONE 20 MG PO (08:20)
[2023-10-30] MEDS: NOVOLOG FLEXPEN-LOW RESISTANCE SC ×3 (08:20→17:00)
[2023-10-30] MEDS: LEXAPRO 10 MG PO (08:20)
[2023-10-30] MEDS: AUGMENTIN 875 MG/125 MG 1 TABLET PO ×2 (08:20→20:00)
[2023-10-30 09:40] LABS: Blood Urea Nitrogen 14 mg/dl (9-20); Calcium 8.3 mg/dl (8.4-10.2); Carbon Dioxide 24 mmol/L (22-30); Chloride 105 mmol/L (98-107); Estimated Creatinine Clearance 97 ml/min; Glucose 70 mg/dl (70-99); Potassium 4.8 mmol/L (3.5-5.1); Sodium 133 mmol/L (135-145); eGFR > 60.00
--- NOTE | 2023-10-30 10:41 | W.PN.HOSP.TC ---
Today's Communication/Plan
-
avoid urinal
PT/OT
OOB
advance diet
Assessment / Plan
Assessment / Plan
Impression:
77 years old male with extensive past medical history including recent UTI and sepsis with Klebsiella bacteremia presents with chills and rigors, reported gross hematuria (self clear) at home
Sepsis (fever, tachycardia, lactic acidosis, neutropenia)
Complicated urinary tract infection with Klebsiella bacteremia
Hematuria open presentation, resolved
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
Recent hospitalization with sepsis complicated UTI with Klebsiella bacteremia.
Conditions prior to admission:
CAD
History of CVA 2018 baseline essential hypertension, hold with chronic hypotension on midodrine prior to presentation but
Dyslipidemia baseline CKD stage III by records.
Choledocholithiasis.
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
Lower extremity DVT on Eliquis [employer]
GERD
Depression
PLAN:
10/30/23--diet advancement--avoid urinal--acidify urine, follow up with urology--d/c planning--finish abx regimen
Sepsis secondary to complicated urinary tract infection with Klebsiella bacteremia.
Septic shock present on admission.
Lactic acidosis.
CT scan of the abdomen pelvis upon admission with no urinary tract pathology.
Initially with hematuria, currently resolved.
ID input appreciated
Continue antibiotics
Choledocholithiasis, less likely represents source of bacteremia over this hospitalization.
No abdominal pain with normal LFTs and pancreatic enzymes upon presentation
Status post attempted ERCP 10/25 with duodenal stenosis, dilation and perforation with ovesco clip placement.
10/25 EUS - Two stones were visualized endosonographically in CBD, multiple stones in gallbladder
10/25- ERCP - Acquired duodenal stenosis. dilation with attempt to advance scope with perforation, with placement of OVESCO clip in duodenum
Upper GI series 10/26 with no extravasation
Advance to full liquid diet. If tolerates plan is to advance to soft diet with supplements.
Continue PPI.
Continue antibiotics/Unasyn through 10/30
Follow-up with cardiology as outpatient for further determination of possible approach in terms of choledocholithiasis.
Left lower extremity DVT
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
No evidence for deep venous thrombosis from the common femoral through the popliteal vein. The right peroneal vein and the proximal greater saphenous vein also appear patent.
807 repeat Doppler over this admission with no evidence of DVT.
On Eliquis prior to admission later changed to weight-based Lovenox.
Given resolved deep venous thrombosis, anticoagulation will be discontinued.
Continue mechanical DVT prophylaxis
If stable GI issues, consider initiate prophylactic dose of heparin or Lovenox.
ASCVD
History of CVA baseline essential hypertension
Dyslipidemia.
Echocardiogram with preserved LVEF and no valvular abnormalities.
Continue aspirin
On Coreg prior to presentation
Inflammatory myopathy
Also has been worked up for PMR, prior workup not consistent with myasthenia gravis.
Continue preadmission steroid maintenance currently on prednisone 20 mg daily.
Outpatient neurology follow-up for further taper
GERD continue PPI.
Depression continue escitalopram
Full code.
DVT prophylaxis hold Eliquis as above.
Anticipated Discharge: > 48 hours
Subjective/Interval History
-
Date of Service: October 30, 2023
spoke with pt at pt request
Objective Data
-
Labs:
Laboratory Results
10/30/23
06:52
WBC 11.1 H
Hgb 10.5 L
Hct 31.3 L
Plt Count 275
Sodium 133 L
Potassium 4.8
Chloride 105
Carbon Dioxide 24
BUN 14
Creatinine 0.7
Glucose 70
Calcium 8.3 L
Vital Signs:
max temp for 24 hours
08/16/24
15:47
Temp 99 F
Vital Signs
Temp Pulse Resp BP Pulse Ox
97.5 F 70 16 168/76 99
10/30/23 07:55 10/30/23 07:55 10/30/23 07:55 10/30/23 07:55 10/30/23 08:10
I&O
10/29/23 10/30/23 10/31/23
06:59 06:59 06:59
Intake Total 2145 / 2145 1065 / 1065
Output Total 2150 / 2150 1700 / 1700
Balance -5 / -5 -635 / -635
Review of Systems
-
All other systems: Reviewed and negative
Physical Exam
-
General: Appears Chronically Ill
HEENT: Normocephalic and Atraumatic
Respiratory: Clear to Auscultation; Negative Wheezes or Rhonchi
Cardiac: Regular Rhythm and S1/S2; Negative Murmur
GI: Soft, Nontender, Nondistended and Normal Bowel Sounds
Musculoskeletal: No Clubbing, No Cyanosis and No Edema
Neuro: Awake and Alert
Psych: Calm
[2023-10-30 11:00] VITALS: BP 135/75
--- NOTE | 2023-10-30 11:14 | W.PN.GI.CBS2 ---
Today's Communication / Plan
-
Low residual diet
Follow-up with Dr. Ybarra as outpatient
Assessment / Plan
-
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 He was sent to 09/11 with weakness/sepsis with concern for klebsiella
bacteremia/UTI. He was treated with antibiotics and returned to rehab 09/16 with discharged 10/04. He returned to ER 10/19 with shaking chills. He has blood noted in urine and on admission noted with gram neg bacilli on blood and urine culture. He was
noted with elevated lactate up to 6.2 then down to 2.7 and further rise today to 4.1. LFT's noted normal but required pressors on admission for hypotension. Since admission pt had CT and US with noted choledocholithiasis asked to eval for ERCP.
In reviewing chart pt also with know CBD stone on MRI in May. Pt has been scheduled 3 times for ERCP with Dr. Ybarra but held with other medical problems. Now s/p attempted ERCP with duodenal stenosis, dilastion and placement of OVESCO clip. UGI
10/26 no leak.
10/25 EUS - Two stones were visualized endosonographically in CBD, multiple stones in gallbladder
10/25- ERCP - Acquired duodenal stenosis. dilation with attempt to advance scope with perforation, with placement of OVESCO clip in duodenum
10/27/23 UGI/SBFT
1. No fluoroscopic evidence for persistent duodenal perforation or leak.
2. OVESCO clip in the proximal duodenum at the site of the treated duodenal perforation.
3. 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
4. 1.3 cm diverticulum protruding medially from the 2nd portion of the duodenum.
5. Small hiatal hernia.
6. Nasogastric tube terminating in the distal esophagus (advancement by [address] the tip in the lumen of the stomach).
-s/p attempted ERCP with duodenal stenosis, dilation and attempted advance scope with perforation and placement
-persistent choledocholithiasis with normal LFT's no abdominal pain
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
-s/p sepsis with elevated lactate, leukocytosis, hypotension requiring pressor on admission
-gram neg bacilli + blood and urine
-recent klebsiella UTI/bacteremia 09/12/23
-leukocytosis
-hx DVT on Eliquis
-thrombocytopenia
-elevated CRP
other med problems:
hip ORIF 06/2023
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
CVA
CAD
ASCVD
CVA
GERD
HTN
Dyslipidemia
CKD stage III
Cholelithiasis
PLAN:
s/p attempted ERCP with duodenal stenosis, dilation and perforation s/p ovesco clip placement
s/p UGI 10/26 with no leak.
Advance to low residual diet.
Continue antibiotics as per ID
Okay to discharge from GI standpoint if tolerating diet
Follow up with Dr. Ybarra as outpatient-to discuss management plan for choledocholithiasis. message sent to office
will s/o
Total Time Spent with Patient (in minutes): 35
Subjective
Subjective
Date of Service: October 30, 2023
Denies any abdominal pain/nausea/vomiting. Tolerating liquid diet
Objective
Data Reviewed
Laboratory Data:
Laboratory Results
10/30/23 06:52
10/30/23 06:52
Laboratory Results
PT 17.2 Sec (11.4-14.6) H 10/20/23 17:03
INR 1.40 10/20/23 17:03
APTT 34.7 Sec (23.4-35.0) 10/20/23 17:03
Phosphorus 2.5 mg/dl (2.5-4.5) 10/23/23 06:31
Magnesium 1.7 mg/dl (1.6-2.3) 10/26/23 07:16
Total Bilirubin 0.6 mg/dl (0.2-1.3) 10/29/23 09:19
AST 30 U/L (17-59) 10/29/23 09:19
ALT 21 U/L (0-50) 10/29/23 09:19
Alkaline Phosphatase 96 U/L (38-126) 10/29/23 09:19
Lipase 81 U/L (23-300) 10/20/23 08:22
Vital Signs and I&O:
Vital Signs
Temp Pulse Resp BP Pulse Ox
97.5 F 70 16 168/76 99
10/30/23 07:55 10/30/23 07:55 10/30/23 07:55 10/30/23 07:55 10/30/23 08:10
I&O
10/29/23 10/30/23 10/31/23
06:59 06:59 06:59
Intake Total 2145 / 2145 1065 / 1065
Output Total 2150 / 2150 1700 / 1700
Balance -5 / -5 -635 / -635
Physical Exam
Physical Exam
GI: Soft, Non Distended and Non Tender
[2023-10-30 12:21] LABS: Glucose - Point of Care 106 mg/dl (70-99)
[2023-10-30 15:00] VITALS: BP 166/76
[2023-10-30 16:50] LABS: Glucose - Point of Care 103 mg/dl (70-99)
--- NOTE | 2023-10-30 18:21 | PTCARENOTE ---
Received patient this am AAOx3. Pt OOB to chair an tolerated well. Tolerated diet well. Offered no complaints. Made patient comfortable. Cont to assess patient status.
[2023-10-30 19:55] VITALS: BP 150/75
[2023-10-30 21:44] LABS: Glucose - Point of Care 118 mg/dl (70-99)
[2023-10-30 23:55] VITALS: BP 163/74
[2023-10-31 07:55] VITALS: BP 170/80
[2023-10-31 08:08] LABS: Glucose - Point of Care 67 mg/dl (70-99)
[2023-10-31] MEDS: NSS (PRESERVATIVE FREE) 10 ML IV ×2 (09:08→20:26)
[2023-10-31] MEDS: PROTONIX IV 40 MG IV ×2 (09:09→20:26)
[2023-10-31] MEDS: AUGMENTIN 875 MG/125 MG 1 TABLET PO ×2 (09:10→20:25)
[2023-10-31] MEDS: DELTASONE 20 MG PO (09:11)
[2023-10-31] MEDS: LEXAPRO 10 MG PO (09:11)
[2023-10-31] MEDS: NOVOLOG FLEXPEN-LOW RESISTANCE SC ×3 (09:15→16:20)
[2023-10-31 09:16] LABS: Glucose - Point of Care 88 mg/dl (70-99)
[2023-10-31 09:30] VITALS: BP 140/78
--- NOTE | 2023-10-31 10:00 | W.PN.HOSP.TC ---
Today's Communication/Plan
-
possibly d/c home Wednesday?
Assessment / Plan
Assessment / Plan
Impression:
77 years old male with extensive past medical history including recent UTI and sepsis with Klebsiella bacteremia presents with chills and rigors, reported gross hematuria (self clear) at home
Sepsis (fever, tachycardia, lactic acidosis, neutropenia)
Complicated urinary tract infection with Klebsiella bacteremia
Hematuria open presentation, resolved
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
Recent hospitalization with sepsis complicated UTI with Klebsiella bacteremia.
Conditions prior to admission:
CAD
History of CVA 2018 baseline essential hypertension, hold with chronic hypotension on midodrine prior to presentation but
Dyslipidemia baseline CKD stage III by records.
Choledocholithiasis.
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
Lower extremity DVT on Eliquis [employer]
GERD
Depression
PLAN:
10/31/23 -- tolerating diet, using urinal while standing (not in bed), taking cranberry juice--should f/u with GI/urology as outpt--pt anticipating home NOT SNF
10/30/23--diet advancement--avoid urinal--acidify urine, follow up with urology--d/c planning--finish abx regimen--spoke with at pt request 10/30/23
Sepsis secondary to complicated urinary tract infection with Klebsiella bacteremia.
Septic shock present on admission.
Lactic acidosis.
CT scan of the abdomen pelvis upon admission with no urinary tract pathology.
Initially with hematuria, currently resolved.
ID input appreciated
Continue antibiotics
Choledocholithiasis, less likely represents source of bacteremia over this hospitalization.
No abdominal pain with normal LFTs and pancreatic enzymes upon presentation
Status post attempted ERCP 10/25 with duodenal stenosis, dilation and perforation with ovesco clip placement.
10/25 EUS - Two stones were visualized endosonographically in CBD, multiple stones in gallbladder
10/25- ERCP - Acquired duodenal stenosis. dilation with attempt to advance scope with perforation, with placement of OVESCO clip in duodenum
Upper GI series 10/26 with no extravasation
Advance to full liquid diet. If tolerates plan is to advance to soft diet with supplements.
Continue PPI.
Continue antibiotics/Unasyn through 10/30
Follow-up with cardiology as outpatient for further determination of possible approach in terms of choledocholithiasis.
Left lower extremity DVT
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
No evidence for deep venous thrombosis from the common femoral through the popliteal vein. The right peroneal vein and the proximal greater saphenous vein also appear patent.
807 repeat Doppler over this admission with no evidence of DVT.
On Eliquis prior to admission later changed to weight-based Lovenox.
Given resolved deep venous thrombosis, anticoagulation will be discontinued.
Continue mechanical DVT prophylaxis
If stable GI issues, consider initiate prophylactic dose of heparin or Lovenox.
ASCVD
History of CVA baseline essential hypertension
Dyslipidemia.
Echocardiogram with preserved LVEF and no valvular abnormalities.
Continue aspirin
On Coreg prior to presentation
Inflammatory myopathy
Also has been worked up for PMR, prior workup not consistent with myasthenia gravis.
Continue preadmission steroid maintenance currently on prednisone 20 mg daily.
Outpatient neurology follow-up for further taper
GERD continue PPI.
Depression continue escitalopram
Full code.
DVT prophylaxis hold Eliquis as above.
Anticipated Discharge: 24 - 48 hours
Subjective/Interval History
-
Date of Service: October 31, 2023
pt wants to go home
Objective Data
-
Vital Signs:
max temp for 24 hours
10/30/23
19:55
Temp 98.0 F
Vital Signs
Temp Pulse Resp BP Pulse Ox
97.6 F 67 16 170/80 98
10/31/23 07:55 10/31/23 07:55 10/31/23 07:55 10/31/23 07:55 10/31/23 07:55
I&O
10/30/23 10/31/23 11/01/23
06:59 06:59 06:59
Intake Total 1065 / 1065 840 / 840
Output Total 1700 / 1700 1120 / 1120 1900 / 1900
Balance -635 / -635 -280 / -280 -1900 / -1900
Review of Systems
-
All other systems: Reviewed and negative
Physical Exam
-
General: Appears Chronically Ill
HEENT: Normocephalic and Atraumatic
Respiratory: Clear to Auscultation; Negative Wheezes or Rhonchi
Cardiac: Regular Rhythm and S1/S2; Negative Murmur
GI: Soft, Nontender, Nondistended and Normal Bowel Sounds
Musculoskeletal: No Clubbing, No Cyanosis and No Edema
Neuro: Awake
Psych: Calm
[2023-10-31 11:36] LABS: Glucose - Point of Care 119 mg/dl (70-99)
[2023-10-31 15:00] VITALS: BP 155/85
--- NOTE | 2023-10-31 16:02 | PTCARENOTE ---
Received patient this am AAOx3. Pt's BS this am was 67. Pt drank juice. Pt then ordered breakfast. BS recheck before breakfast was 88. Pt tolerated diet well. OOB to chair an tolerated well. Pt encouraged to ambulate in room with walker an
assistance x1. Made patient comfortable. Cont to assess patient status.
[2023-10-31 16:15] LABS: Glucose - Point of Care 128 mg/dl (70-99)
[2023-10-31 21:33] LABS: Glucose - Point of Care 149 mg/dl (70-99)
[2023-10-31 23:41] VITALS: BP 114/75
[2023-11-01 08:12] VITALS: BP 169/87
[2023-11-01 08:20] LABS: Hemoglobin 10.2 g/dL (13.0-18.0); Mean Corpuscular Hgb 34.1 pg (27.0-31.0); Mean Corpuscular Volume 100.3 fL (80.0-94.0); Mean Platelet Volume 10.4 fL (7.4-10.4); Platelet Count 337 10^3/uL (130-400); Red Blood Cell Count 2.99 10^6/uL (4.70-6.10); Red Cell Dist. Width 15.4 % (11.5-14.5); White Blood Cell Count 10.5 10^3/uL (4.8-10.8)
[2023-11-01 08:25] LABS: Glucose - Point of Care 81 mg/dl (70-99)
[2023-11-01] MEDS: DELTASONE 20 MG PO (08:41)
[2023-11-01] MEDS: LEXAPRO 10 MG PO (08:41)
[2023-11-01] MEDS: AUGMENTIN 875 MG/125 MG 1 TABLET PO ×2 (08:41→20:35)
[2023-11-01] MEDS: PROTONIX IV 40 MG IV (08:42)
[2023-11-01] MEDS: NOVOLOG FLEXPEN-LOW RESISTANCE SC ×3 (08:42→17:42)
[2023-11-01] MEDS: NSS (PRESERVATIVE FREE) 10 ML IV (08:42)
[2023-11-01 09:03] LABS: Blood Urea Nitrogen 18 mg/dl (9-20); Calcium 8.5 mg/dl (8.4-10.2); Carbon Dioxide 27 mmol/L (22-30); Chloride 101 mmol/L (98-107); Estimated Creatinine Clearance 85 ml/min; Glucose 83 mg/dl (70-99); Magnesium 1.9 mg/dl (1.6-2.3); Potassium 4.3 mmol/L (3.5-5.1); Sodium 133 mmol/L (135-145); eGFR > 60.00
--- NOTE | 2023-11-01 09:58 | CM ---
Patient seen bedside.
Per patient he plans home with [facility].
Declined skilled rehab.
will transport.
IMM completed.
Plan: home with [facility]
[2023-11-01 11:56] LABS: Glucose - Point of Care 116 mg/dl (70-99)
[2023-11-01 12:13] VITALS: BP 144/73; PULSE 98; O2SAT 98
[2023-11-01 15:43] VITALS: BP 152/71
--- NOTE | 2023-11-01 16:14 | W.PN.HOSP.TC ---
Today's Communication/Plan
-
Completed antibiotics.
Diet has been advanced with good tolerance.
Continue physical therapy
Discharge planning.
Assessment / Plan
Assessment / Plan
Impression:
77 years old male with extensive past medical history including recent UTI and sepsis with Klebsiella bacteremia presents with chills and rigors, reported gross hematuria (self clear) at home
Sepsis (fever, tachycardia, lactic acidosis, neutropenia)
Complicated urinary tract infection with Klebsiella bacteremia
Hematuria open presentation, resolved
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
Recent hospitalization with sepsis complicated UTI with Klebsiella bacteremia.
Conditions prior to admission:
CAD
History of CVA 2018 baseline essential hypertension, hold with chronic hypotension on midodrine prior to presentation but
Dyslipidemia baseline CKD stage III by records.
Choledocholithiasis.
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
GERD
Depression
PLAN:
Sepsis secondary to complicated urinary tract infection with Klebsiella bacteremia.
Septic shock present on admission.
Lactic acidosis.
CT scan of the abdomen pelvis upon admission with no urinary tract pathology.
Initially with hematuria, currently resolved.
ID input appreciated
Continue antibiotics
Choledocholithiasis, less likely represents source of bacteremia over this hospitalization.
No abdominal pain with normal LFTs and pancreatic enzymes upon presentation
Status post attempted ERCP 10/25 with duodenal stenosis, dilation and perforation with ovesco clip placement.
10/25 EUS - Two stones were visualized endosonographically in CBD, multiple stones in gallbladder
10/25- ERCP - Acquired duodenal stenosis. dilation with attempt to advance scope with perforation, with placement of OVESCO clip in duodenum
Upper GI series 10/26 with no extravasation
Diet has been advanced to low residue
Continue PPI.
Continue antibiotics/Unasyn through 10/30
Follow-up with cardiology as outpatient for further determination of possible approach in terms of choledocholithiasis.
Left lower extremity DVT
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
No evidence for deep venous thrombosis from the common femoral through the popliteal vein. The right peroneal vein and the proximal greater saphenous vein also appear patent.
807 repeat Doppler over this admission with no evidence of DVT.
On Eliquis prior to admission later changed to weight-based Lovenox.
Given resolved deep venous thrombosis, anticoagulation will be discontinued.
Continue mechanical DVT prophylaxis
If stable GI issues, consider initiate prophylactic dose of heparin or Lovenox.
ASCVD
History of CVA baseline essential hypertension
Dyslipidemia.
Echocardiogram with preserved LVEF and no valvular abnormalities.
Continue aspirin
On Coreg prior to presentation
Inflammatory myopathy
Also has been worked up for PMR, prior workup not consistent with myasthenia gravis.
Continue preadmission steroid maintenance currently on prednisone 20 mg daily.
Outpatient neurology follow-up for further taper
GERD continue PPI.
Depression continue escitalopram
Full code.
DVT prophylaxis hold Eliquis as above.
Anticipated Discharge: Within 24 hours
Subjective/Interval History
-
Date of Service: November 01, 2023
Objective Data
-
Labs:
Laboratory Results
11/01/23
06:32
WBC 10.5
Hgb 10.2 L
Hct 30.0 L
Plt Count 337 D
Sodium 133 L
Potassium 4.3
Chloride 101
Carbon Dioxide 27
BUN 18
Creatinine 0.8
Glucose 83
Calcium 8.5
Vital Signs:
Vital Signs
Temp Pulse Resp BP Pulse Ox
98.4 F 83 18 152/71 99
11/01/23 15:43 11/01/23 15:43 11/01/23 15:43 11/01/23 15:43 11/01/23 15:43
I&O
10/31/23 11/01/23 11/02/23
06:59 06:59 06:59
Intake Total 840 / 840 1140 / 1140
Output Total 1120 / 1120 4145 / 4145 400 / 400
Balance -280 / -280 -3005 / -3005 -400 / -400
Physical Exam
-
General: Well Developed and No Apparent Distress
HEENT: Normocephalic, Atraumatic and Moist Mucous Membranes
Respiratory: Clear to Auscultation
Cardiac: Regular Rhythm and S1/S2; Negative Murmur, Rub or Gallop
GI: Soft, Nontender, Nondistended and Normal Bowel Sounds; Negative Organomegaly
Rectal: Deferred by Provider
Musculoskeletal: No Clubbing, No Cyanosis and No Edema
Skin: Negative Rash
Neuro: Nonfocal/Grossly Intact
[2023-11-01 17:28] LABS: Glucose - Point of Care 128 mg/dl (70-99)
[2023-11-01] MEDS: PROTONIX 40 MG PO (20:35)
[2023-11-01 21:53] LABS: Glucose - Point of Care 176 mg/dl (70-99)
[2023-11-01 23:55] VITALS: BP 146/73
[2023-11-02 07:32] LABS: Glucose - Point of Care 85 mg/dl (70-99)
[2023-11-02 07:35] VITALS: BP 181/85
[2023-11-02] MEDS: NOVOLOG FLEXPEN-LOW RESISTANCE SC ×2 (07:45→11:40)
[2023-11-02 08:30] VITALS: BP 158/80
[2023-11-02] MEDS: LEXAPRO 10 MG PO (08:35)
[2023-11-02] MEDS: PROTONIX 40 MG PO (08:35)
[2023-11-02] MEDS: AUGMENTIN 875 MG/125 MG 1 TABLET PO (08:35)
[2023-11-02] MEDS: DELTASONE 20 MG PO (08:35)
[2023-11-02 11:30] VITALS: BP 140/78
[2023-11-02 11:38] LABS: Glucose - Point of Care 104 mg/dl (70-99)
[2023-11-02 15:47] VITALS: BP 139/78
--- NOTE | 2023-11-02 16:06 | W.DS.TRANS ---
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
-
Discharge Instructions:
Discharge Diagnosis/Procedures Impression:
77 years old male with extensive past medical
history including recent UTI and sepsis with
Klebsiella bacteremia presents with chills and
rigors, reported gross hematuria (self clear) at
home
Sepsis (fever, tachycardia, lactic acidosis,
neutropenia)
Complicated urinary tract infection with
Klebsiella bacteremia
Hematuria open presentation, resolved
Chronic immunosuppression on steroids for
inflammatory myopathy
Recent hospitalization with sepsis complicated
UTI with Klebsiella bacteremia.
Conditions prior to admission:
CAD
History of CVA 2018 baseline essential
hypertension, hold with chronic hypotension on
midodrine prior to presentation but
Dyslipidemia baseline CKD stage III by records.
Choledocholithiasis.
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
GERD
Depression
Diet Low Residue
Instructions:
Stand-Alone Forms:
Changes to Home Medications: Yes
Discharge Medications:
DC Medications w/original date entered in [employer]
aspirin 81 mg tablet,delayed release 81 mg PO DAILY Blood Clot Prevention/Tx 08/13/23
therapeutic multivitamin 1 tab PO DAILY Supplement 09/18/23
carvedilol 3.125 mg tablet 3.125 mg PO BID Blood pressure 30 days #60 tabs 10/05/23
folic acid 1 mg tablet 1 mg PO DAILY Supplement 30 days #30 tabs 10/05/23
cyanocobalamin (vitamin B-12) 1,000 mcg tablet 2,000 mcg PO DAILY supplement 10/20/23
escitalopram oxalate 10 mg tablet 10 mg PO DAILY Depression 10/20/23
midodrine 5 mg tablet 5 mg PO TID orthostasis - low blood pressure 10/20/23
prednisone 20 mg tablet 20 mg PO DAILY MYOPATHY 10/20/23
pantoprazole 40 mg tablet,delayed release 40 mg PO BID #60 tabs 08/20/24
Home Medication Changes
Eliquis stopped
Protonix changed to BID
Pending Results: No
--- NOTE | 2023-11-02 16:32 | CM ---
Md entered order for discharge.
Spoke with he aid he was ready for dc. Explained IMM he said he wants dc today.
Goldie will drive him home.'
He requested [facility] at dc. Nirmala S liaison aware.
PLAN Home with [facility]
[2023-11-02 16:42] LABS: Glucose - Point of Care 170 mg/dl (70-99)
[2023-11-02] MEDS: NOVOLOG FLEXPEN-LOW RESISTANCE 1 UNITS SC (16:45)
--- NOTE | 2023-11-08 10:54 | PN.CDI ---
CDI
- -
CDI:
Physician Documentation Request
Admit Date: 10/20/23 10:59
Dear Doctor Tate,
Please review the following and provide your response in the progress notes.
Clinical Indicators:
Pt was admitted with sepsis.
10/25 ECRP procedure report: ' Acquired duodenal stenosis.
- Dilation performed in the duodenum. During attempt
to advance the scope, a perforation was noted.
- A mildly bleeding perforation was found in the
duodenum.
- OVESCO clip (MR conditional) in the first portion of
the duodenum.'
10/26 General surgery: '77M PPD1 s/p ERCP for choledocholithiasis c/b iatrogenic duodenal perforation, either in the bulb or D2.'
Please clarify the following:
Duodenal perforation was a complication of the ECRP
Other
Use of terms such as suspected, likely, concern for, or probable (associated with a specific diagnosis that is being evaluated, monitored, or treated as if it exists) are acceptable and can be coded in the inpatient setting, when documented at the
time of discharge.
Thank you,
Brandy Malone RN, BSN
CDI Specialist
Available via [employer]
Please use your independent medical judgment in providing your response.
--- NOTE | 2023-11-18 18:45 | W.PN.UPDATE ---
Update Note
Progress Note Update
requested to document for billing purposes.
Pt's duodenal perforation was a complication from ERCP procedure.
== END 2023-11-02 17:39 | disposition home health service (06) | DRG 871 ==
LOC: 4 EAST ACU 10:59
PROVIDERS: Internal Medicine; Internal Medicine Gastroenterology; Nurse Practitioner Adult Health; Physician Assistant; ADMITTING PHYSICIAN Internal Medicine; CONSULT PHYSICIAN Internal Medicine Critical Care Medicine; CONSULT PHYSICIAN Surgery; EMERGENCY PHYSICIAN Student in an Organized Health Care Education/Training Program; FAMILY PHYSICIAN Student in an Organized Health Care Education/Training Program; OTHER PHYSICIAN Internal Medicine Infectious Disease; OTHER PHYSICIAN Specialist
PROC: 0D798ZZ Dilation of Duodenum, Via Natural or Artificial Opening Endoscopic (ICD-10-PCS; 2023-10-26)
PROC: 0W3P8ZZ Control Bleeding in Gastrointestinal Tract, Via Natural or Artificial Opening Endoscopic (ICD-10-PCS; 2023-10-26)
DX: A41.59 Other Gram-negative sepsis (principal); J96.01 Acute respiratory failure with hypoxia; R65.21 Severe sepsis with septic shock; E87.20 Acidosis, unspecified; D84.821 Immunodeficiency due to drugs; N39.0 Urinary tract infection, site not specified; K31.5 Obstruction of duodenum; K91.71 Accidental puncture and laceration of a digestive system organ or structure during a digestive system procedure; D69.6 Thrombocytopenia, unspecified; I12.9 Hypertensive chronic kidney disease with stage 1 through stage 4 chronic kidney disease, or unspecified chronic kidney disease; N18.30 Chronic kidney disease, stage 3 unspecified; F32.A Depression, unspecified; M35.3 Polymyalgia rheumatica; I70.0 Atherosclerosis of aorta; I65.22 Occlusion and stenosis of left carotid artery; D64.9 Anemia, unspecified; I34.0 Nonrheumatic mitral (valve) insufficiency; L89.152 Pressure ulcer of sacral region, stage 2; G72.49 Other inflammatory and immune myopathies, not elsewhere classified; D70.9 Neutropenia, unspecified; K80.70 Calculus of gallbladder and bile duct without cholecystitis without obstruction; K86.81 Exocrine pancreatic insufficiency; I95.89 Other hypotension; I25.10 Atherosclerotic heart disease of native coronary artery without angina pectoris; E78.5 Hyperlipidemia, unspecified; K21.9 Gastro-esophageal reflux disease without esophagitis; K90.0 Celiac disease; K82.8 Other specified diseases of gallbladder; R31.0 Gross hematuria; E53.8 Deficiency of other specified B group vitamins; E55.9 Vitamin D deficiency, unspecified; R19.7 Diarrhea, unspecified; R53.81 Other malaise; R60.0 Localized edema; Z53.9 Procedure and treatment not carried out, unspecified reason; Z79.01 Long term (current) use of anticoagulants; Z79.52 Long term (current) use of systemic steroids; Z79.82 Long term (current) use of aspirin; Z79.899 Other long term (current) drug therapy; Z86.718 Personal history of other venous thrombosis and embolism; Z86.19 Personal history of other infectious and parasitic diseases; Z86.73 Personal history of transient ischemic attack (TIA), and cerebral infarction without residual deficits; Z87.440 Personal history of urinary (tract) infections; Z86.010 Personal history of colon polyps; Z82.49 Family history of ischemic heart disease and other diseases of the circulatory system
CPT/HCPCS: 71046; 74176; 74240; 74248; 74330; 76000; 76705; 80048; 80053; 80076; 81003; 81015; 82248; 82962; 83605; 83690; 83735; 83880; 84100; 85025; 85027; 85610; 85652; 85730; 86140; 87040; 87045; 87046; 87077; 87086; 87149; 87186; 87205; 87324; 87427; 87449; 93005; 93970; 96361; 96374; 96375; 97116; 97163; 97167; 97530; 99285; C1726; C1760

== ENCOUNTER → 2023-11-18 14:12 | Outpatient (REF) | payer MEDICARE, OTHER, SELFPAY ==
[2023-11-18 15:46] LABS: % Basophils 0.4 % (0-2); % Immature Granulocytes 3.9 % (0-0.5); % Lymphocytes 7.7 % (20.5-51.1); % Monocytes 2.1 % (1.7-9.3); % Neutrophils 85.9 % (42.2-75.2); Absolute Basophils 0.1 10^3/uL (0-0.2); Absolute Immature Granulocytes 0.5 10^3/uL (0-0.05); Absolute Monocytes 0.3 10^3/uL (0.1-0.6); Absolute Neutrophils 10.9 10^3/uL (1.4-6.5); Hematocrit 35.6 % (39.0-52.0); Hemoglobin 11.8 g/dL (13.0-18.0); Mean Corp Hgb Conc. 33.1 g/dL (33.0-37.0); Mean Corpuscular Hgb 33.8 pg (27.0-31.0); Mean Platelet Volume 9.9 fL (7.4-10.4); Nucleated Red Blood Cells % 0 % (-); Platelet Count 251 10^3/uL (130-400); Red Blood Cell Count 3.49 10^6/uL (4.70-6.10); Red Cell Dist. Width 14.9 % (11.5-14.5); White Blood Cell Count 12.7 10^3/uL (4.8-10.8)
[2023-11-18 15:55] LABS: Erythrocyte Sed Rate 34 mm/hour (0-20)
[2023-11-18 16:16] LABS: ALT (SGPT) 22 U/L (0-50); AST (SGOT) 33 U/L (17-59); Albumin 3.6 g/dl (3.5-5.0); Alkaline Phosphatase 85 U/L (38-126); Blood Urea Nitrogen 32 mg/dl (9-20); Calcium 9.2 mg/dl (8.4-10.2); Carbon Dioxide 28 mmol/L (22-30); Chloride 98 mmol/L (98-107); Creatine Phosphokinase 40 U/L (55-170); Glucose 110 mg/dl (70-99); Potassium 4.9 mmol/L (3.5-5.1); Sodium 137 mmol/L (135-145); Total Bilirubin 0.4 mg/dl (0.2-1.3); Total Protein 6.2 g/dl (6.3-8.2); eGFR > 60.00
== END ==
LOC: REG 14:12
PROVIDERS: ATTENDING PHYSICIAN Student in an Organized Health Care Education/Training Program; REFERRING PHYSICIAN Psychiatry & Neurology Neurology
DX: Z09 Encounter for follow-up examination after completed treatment for conditions other than malignant neoplasm (principal); Z86.19 Personal history of other infectious and parasitic diseases; G72.9 Myopathy, unspecified
CPT/HCPCS: 36415; 80053; 82550; 85025; 85652; 86140

== ENCOUNTER → 2023-12-28 09:23 | Outpatient (REF) | payer MEDICARE, OTHER, SELFPAY ==
[2023-12-28 11:22] LABS: % Basophils 0.3 % (0-2); % Eosinophils 0.4 % (0-6); % Immature Granulocytes 1.2 % (0-0.5); % Lymphocytes 23.8 % (20.5-51.1); % Neutrophils 67.3 % (42.2-75.2); Absolute Immature Granulocytes 0.1 10^3/uL (0-0.05); Absolute Lymphocytes 2.4 10^3/uL (1.2-3.4); Absolute Monocytes 0.7 10^3/uL (0.1-0.6); Absolute Neutrophils 6.9 10^3/uL (1.4-6.5); Hematocrit 36.9 % (39.0-52.0); Hemoglobin 12.1 g/dL (13.0-18.0); Mean Corp Hgb Conc. 32.8 g/dL (33.0-37.0); Mean Corpuscular Hgb 33.9 pg (27.0-31.0); Mean Corpuscular Volume 103.4 fL (80.0-94.0); Mean Platelet Volume 9.7 fL (7.4-10.4); Nucleated Red Blood Cells % 0 % (-); Platelet Count 237 10^3/uL (130-400); Red Blood Cell Count 3.57 10^6/uL (4.70-6.10); Red Cell Dist. Width 14.6 % (11.5-14.5); White Blood Cell Count 10.2 10^3/uL (4.8-10.8)
[2023-12-28 11:55] LABS: Blood Urea Nitrogen 29 mg/dl (9-20); Calcium 9.2 mg/dl (8.4-10.2); Carbon Dioxide 29 mmol/L (22-30); Chloride 103 mmol/L (98-107); Creatine Phosphokinase 30 U/L (55-170); Glucose 69 mg/dl (70-99); Potassium 4.5 mmol/L (3.5-5.1); Sodium 140 mmol/L (135-145); eGFR > 60.00
[2023-12-28 11:57] LABS: Erythrocyte Sed Rate 23 mm/hour (0-20)
[2023-12-28 13:04] LABS: Folate > 20.0 ng/ml (2.76-20); Vitamin B12 501 pg/ml (239-931)
== END ==
LOC: REG 09:23
PROVIDERS: ATTENDING PHYSICIAN Psychiatry & Neurology Neurology; FAMILY PHYSICIAN Student in an Organized Health Care Education/Training Program
DX: D75.89 Other specified diseases of blood and blood-forming organs (principal); G72.9 Myopathy, unspecified; D51.9 Vitamin B12 deficiency anemia, unspecified
CPT/HCPCS: 36415; 80048; 82550; 82607; 82746; 85025; 85652; 86140

== ENCOUNTER → 2024-01-18 11:55 | Outpatient (REF) | payer MEDICARE, OTHER, SELFPAY ==
[2024-01-18 13:03] LABS: % Basophils 0.6 % (0-2); % Eosinophils 0.4 % (0-6); % Monocytes 7.3 % (1.7-9.3); % Neutrophils 80.7 % (42.2-75.2); Absolute Basophils 0.1 10^3/uL (0-0.2); Absolute Eosinophils 0.1 10^3/uL (0-0.7); Absolute Immature Granulocytes 0.2 10^3/uL (0-0.05); Absolute Lymphocytes 1.1 10^3/uL (1.2-3.4); Absolute Monocytes 0.9 10^3/uL (0.1-0.6); Absolute Neutrophils 9.4 10^3/uL (1.4-6.5); Hematocrit 38.2 % (39.0-52.0); Hemoglobin 12.3 g/dL (13.0-18.0); Mean Corp Hgb Conc. 32.2 g/dL (33.0-37.0); Mean Corpuscular Hgb 33.2 pg (27.0-31.0); Mean Corpuscular Volume 103.2 fL (80.0-94.0); Mean Platelet Volume 9.7 fL (7.4-10.4); Nucleated Red Blood Cells % 0 % (-); Platelet Count 211 10^3/uL (130-400); Red Cell Dist. Width 14.7 % (11.5-14.5); White Blood Cell Count 11.7 10^3/uL (4.8-10.8)
[2024-01-18 13:28] LABS: Erythrocyte Sed Rate 25 mm/hour (0-20)
[2024-01-18 13:29] LABS: ALT (SGPT) 19 U/L (0-50); AST (SGOT) 26 U/L (17-59); Albumin 3.5 g/dl (3.5-5.0); Alkaline Phosphatase 74 U/L (38-126); Blood Urea Nitrogen 32 mg/dl (9-20); Calcium 9.3 mg/dl (8.4-10.2); Carbon Dioxide 28 mmol/L (22-30); Chloride 101 mmol/L (98-107); Creatine Phosphokinase 28 U/L (55-170); Glucose 91 mg/dl (70-99); Potassium 4.5 mmol/L (3.5-5.1); Sodium 137 mmol/L (135-145); Total Bilirubin 0.4 mg/dl (0.2-1.3); eGFR 56.23
== END ==
LOC: REG 11:55
PROVIDERS: ATTENDING PHYSICIAN Physician Assistant; FAMILY PHYSICIAN Internal Medicine
DX: M25.551 Pain in right hip (principal); I89.0 Lymphedema, not elsewhere classified; M60.80 Other myositis, unspecified site; R74.8 Abnormal levels of other serum enzymes
CPT/HCPCS: 36415; 73502; 80053; 82550; 85025; 85652; 86140

== ENCOUNTER 2024-02-13 13:04 | Inpatient (IN) | payer MEDICARE, OTHER, SELFPAY ==
[2024-02-13 10:27] VITALS: BP 153/87
[2024-02-13 11:19] VITALS: BP 173/89
[2024-02-13 11:30] LABS: % Basophils 0.4 % (0-2); % Eosinophils 0.5 % (0-6); % Immature Granulocytes 1.9 % (0-0.5); % Lymphocytes 17.1 % (20.5-51.1); % Monocytes 8.4 % (1.7-9.3); % Neutrophils 71.7 % (42.2-75.2); Absolute Eosinophils 0.1 10^3/uL (0-0.7); Absolute Immature Granulocytes 0.2 10^3/uL (0-0.05); Absolute Lymphocytes 1.9 10^3/uL (1.2-3.4); Absolute Monocytes 0.9 10^3/uL (0.1-0.6); Absolute Neutrophils 8.1 10^3/uL (1.4-6.5); Hematocrit 36.4 % (39.0-52.0); Hemoglobin 11.5 g/dL (13.0-18.0); Mean Corp Hgb Conc. 31.6 g/dL (33.0-37.0); Mean Corpuscular Hgb 32.4 pg (27.0-31.0); Mean Corpuscular Volume 102.5 fL (80.0-94.0); Mean Platelet Volume 9.3 fL (7.4-10.4); Nucleated Red Blood Cells % 0 % (-); Platelet Count 234 10^3/uL (130-400); Red Blood Cell Count 3.55 10^6/uL (4.70-6.10); Red Cell Dist. Width 14.7 % (11.5-14.5); White Blood Cell Count 11.2 10^3/uL (4.8-10.8)
--- NOTE | 2024-02-13 11:43 | ED.GENMED ---
History of Present Illness
General
Chief Complaint: Musculo-Skeletal Complaint
Time Seen by Provider: 02/13/24 11:11
History of Present Illness
History of Present Illness:
TIME OF INITIAL ENCOUNTER: 11:40 AM
HPI: The patient has been having right-sided hip discomfort over the last several weeks. He was seen by Dr. Denis who diagnosed him with bursitis. Of note he had been on high-dose steroids recently. He had a nontraumatic fracture of the left
hip in the past. MRI was obtained as an outpatient this morning and was found to be positive for hip fracture. The PA with [facility] orthopedics sent the patient in for admission.
EXAM:
GENERAL: Appears somewhat weak and debilitated
HEENT: Moist oral mucosa
CARDIOVASCULAR: No murmurs, normal heart rate, regular rhythm, No chest wall tenderness
PULMONARY: No respiratory distress, breath sounds are clear and equal
ABDOMEN: Soft with no peritoneal signs, no tenderness
NEUROLOGIC: Excellent strength all extremities, no coordination deficits
PSYCHIATRIC: Appropriate mental status, normal insight and judgement
EXTREMITIES: The patient holds the right hip in flexion and there is no significant pain with passive range of motion into rotation
SKIN: Appears somewhat pale
NUMBER AND COMPLEXITY OF PROBLEMS ADDRESSED AT THE ENCOUNTER
� Chronic conditions affecting care: CAD, high blood pressure
� Acute Exacerbation and/or Progression of Chronic Illness:
� Differential Diagnosis includes:
AMOUNT AND/OR COMPLEXITY OF DATA TO BE REVIEWED AND ANALYZED
� I performed an independent evaluation of and my interpretation is:
EKG:
CT:
X-rays:
Laboratory Studies: White count 11.2, hemoglobin 11.5, chemistries relatively unremarkable
Other:
� Review of other/old records: The patient was admitted for sepsis 3 months ago; I reviewed MRI report that showed a right subacute subcapital fracture with mild impaction
� Clinical information was obtained by an independent historian: I spoke to the at bedside
� Prescriptions/Medications Considered but not given:
� Further testing considered but not performed:
RISK OF COMPLICATIONS AND/OR MORBIDITY OR MORTALITY OF PATIENT MANAGEMENT
� Social determinants of health affecting care: Lives at home
� Discussion with other providers: Received notification of present presentation by the PA with [facility] orthopedics; Dr. Umanzor for admission
� Escalation of care including admission/observation vs risk of discharge considered: The patient will be admitted to the hospital under the hospitalist service with plan for OR on Wednesday.
ANY OTHER UPDATES:
Past History
Past History
ED Past Medical History: CAD, CVA (2018), GERD, HTN, Hypercholesterolemia, Renal failure (CKD 3) and Other (Vitamin B12, vitamin D, adenomatous polyp, cholelithiasis)
ED Past Surgical History: Orthopedic (left hip ORIF 06/2023) and Other (Hernia, cataract surgery, bilateral cataract surgery, left leg stent)
Social History
Tobacco: Non-smoker
Alcohol: None
Drug: None
Personal:
Living: with family
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
Family History
Family History: Early CAD
Phy Exam
Physical Exam
Physical Exam:
See HPI
Course
Orders/Labs/Results
Orders:
Orders
02/13/24 11:16
Complete Blood Count/With Diff Urgent
02/13/24 11:44
Basic Metabolic Panel Urgent
02/13/24 12:33
ORTHOPEDIC CONSULT Routine
Consulting Provider: Allen Patel
Was physician already notified: Yes
Reason for consult: R hip fx
02/13/24 12:45
Admit/Transfer Patient As Directed
Co-Sign Provider:
Level of Care: Inpatient admission
Assign to:: Medical/Surgical
Physician / Group: Dulce
Diagnosis: R hip fx
Reason for Hospitalization: R hip fx
Expected length of stay greater than two midnights?: Yes
ELOS- Estimated Length of Stay in days: 3
I certify the patient meets the requirements for IP care: Yes
PRN Pain Medication Management As Directed
May give lesser potent ordered pain med per pt: Yes
preference::
Protocol:: Medication orders for pain may be administered in a
manner that supports deferring to patient preference
when the pt is:
- Requesting an ordered lesser potent pain medication.
Least to most potent pain medications are defined
as: acetaminophen < NSAID < tramadol < opioids
(morphine, oxycodone, hydromorphone).
- Requesting a lesser dose of the same medication IF
ORDERED.
- Requesting a less intrusive route of administration
if both routes are prescribed by the provider (PO <
IV).
02/13/24 12:47
Code Status As Directed
Resuscitation Status: Full Code
Abnormal Lab Results
02/13/24 02/13/24
11:16 11:44
WBC 11.2 H 10^3/uL
(4.8-10.8)
RBC 3.55 L 10^6/uL
(4.70-6.10)
Hgb 11.5 L g/dL
(13.0-18.0)
Hct 36.4 L %
(39.0-52.0)
MCV 102.5 H fL
(80.0-94.0)
MCH 32.4 H pg
(27.0-31.0)
MCHC 31.6 L g/dL
(33.0-37.0)
RDW 14.7 H %
(11.5-14.5)
Abs Immat Gran (auto) 0.2 H 10^3/uL
(0-0.05)
Absolute Neuts (auto) 8.1 H 10^3/uL
(1.4-6.5)
Absolute Monos (auto) 0.9 H 10^3/uL
(0.1-0.6)
Immature Gran % 1.9 H %
(0-0.5)
Lymphocytes % 17.1 L %
(20.5-51.1)
Carbon Dioxide 31 H mmol/L
(22-30)
BUN 29 H mg/dl
(9-20)
02/13/24 11:16
02/13/24 11:44
Vital Signs
Initial and Last Documented VS:
Initial Vital Signs
Temp Pulse Resp BP Pulse Ox
36.8 C 68 16 153/87 98
02/13/24 10:27 02/13/24 10:27 02/13/24 10:27 02/13/24 10:27 02/13/24 10:27
Last Documented Vital Signs
Temp Pulse Resp BP Pulse Ox
36.8 C 68 16 170/85 97
02/13/24 10:27 02/13/24 10:27 02/13/24 10:27 02/13/24 12:00 02/13/24 12:01
*Critical Care Note
Total Time (30-74mins, 75-104mins- exclusive of procedures): Not Applicable
ED Attending Note
-
Portions of this chart may have been created with voice recognition software.� Occasional wrong word or��sound alike� substitutions may have occurred due to the inherent limitations of voice recognition software.
Discharge Plan
Departure
Patient Disposition: Admit
Date of Disposition: 02/13/24
Time of Disposition: 11:14
Presentation/result/management discussed w/ accepting MD/DO: Hospitalist
Discharge Problem:
Hip fracture
Interventions
Interventions:
*Risk Screen - Suicide Last Done: 02/13/24 10:27
*General Assessment Last Done: 02/13/24 11:17
*Neglect/Abuse Screening Last Done: 02/13/24 10:27
ED- Fall Risk Assessment Last Done: 02/13/24 11:17
*ED COVID-19 Vaccine History Last Done: 02/13/24 11:17
ED-Musculoskeletal Assessment Last Done: 02/13/24 11:17
--- NOTE | 2024-02-13 11:56 | HPS.HSE ---
Family Physician
-
Family Physician: Geneva James MD
Chief Complaint
-
Right hip pain, R hip fx
History of Present Illness
78 y/o M with PMHx:
Chronic immunosuppression due to steroids for inflammatory myopathy
Choledocholithiasis s/p attempt of ERCP with contained duodenal perforation repair during the procedure.
CAD
h/o CVA in 2018
Essential hypertension
Hyperlipidemia
CKD3a
Cholelithiasis
Inflammatory myopathy
h/o LE DVT on Eliquis prior
GERD
Depression.
Stage 2 coccyx pressure injury
who p/w right hip pain over the last several weeks. He was recently diagnosed with a right trochanteric bursitis by Dr. Denis given a steroid injection. He had an MRI this morning showing right hip subacute subcapital fracture with mild
impaction I was sent to the ER for admission by [facility] orthopedics. Denies any other acute complaints including chest pain, shortness of breath, nausea, vomiting, headache, neck stiffness, visual disturbances, strokelike symptoms, dysuria,
rash.
Medical History
Past Medical History
Past Medical History: Reports Other (Chronic immunosuppression due to steroids for inflammatory myopathy Choledocholithiasis s/p attempt of ERCP with contained duodenal perforation repair during the procedure. CAD h/o CVA in 2018 Essential
hypertension Hyperlipidemia CKD3a Cholelithiasis Inflammatory myopathy h/o LE DVT on Eliquis tanvi)
Past Surgical History: Reports Other (N/A)
Social History
Tobacco: Non-smoker
Alcohol: None
Drug: None
Family History
Family History: Not pertinent
Allergies / Home Medications
Allergies reflects when Allergies were last updated in [employer].
Home Medications with original date entered in [employer]
Allergy/Medication List:
Allergies
Allergy/AdvReac Type Severity Reaction Status Date / Time
gluten Allergy Severe Celiac Verified 02/13/24 10:30
disease
Home Medications
aspirin 81 mg tablet,delayed release 81 mg PO DAILY Blood Clot Prevention/Tx 08/13/23
therapeutic multivitamin 1 tab PO DAILY Supplement 09/18/23
carvedilol 3.125 mg tablet 3.125 mg PO BID Blood pressure 30 days #60 tabs 10/05/23
folic acid 1 mg tablet 1 mg PO DAILY Supplement 30 days #30 tabs 10/05/23
cyanocobalamin (vitamin B-12) 1,000 mcg tablet 2,000 mcg PO DAILY supplement 10/20/23
escitalopram oxalate 10 mg tablet 10 mg PO DAILY Depression 10/20/23
prednisone 20 mg tablet 20 mg PO DAILY MYOPATHY 10/20/23
pantoprazole 40 mg tablet,delayed release 40 mg PO BID #60 tabs 11/02/23
Review of Systems
-
History Source: Patient
A 12 point ROS was completed and negative except as noted: Yes
Physical Exam
Vital Signs
Vital Signs
Temp Pulse Resp BP Pulse Ox
98.2 F 68 16 173/89 98
02/13/24 10:27 02/13/24 10:27 02/13/24 10:27 02/13/24 11:19 02/13/24 11:45
Physical Exam
General: Other (.)
Laboratory Results
-
02/13/24 11:16
Impression/Plan
-
Gen: NAD, AAOx3.
Eyes: EOMI, PERRLA, no scleral icterus.
Neck: supple.
CV: RRR, +S1/S2, no m/r/g.
Resp: CTAB, no rales, wheezes, or rhonchi.
Abd: +BS, soft, NT, ND
Skin: No rashes.
Neuro: CN 2-12 intact, non-focal.
Psych: Normal mood and affect.
MRI R hip: Right hip subacute subcapital fracture with mild impaction. Bilateral hip avascular necrosis, right greater than left.
R hip fx:
-Patient has chronic kidney disease and due to his myositis his MET score is < 4. No symptoms of decompensated heart failure or acute coronary syndrome/unstable angina.
-Patient is low to moderate risk for orthopedic surgery. I recommend proceeding with planned orthopedic surgery as the benefit outweighs the risk.
-plan for OR 02/15/24
Other problems:
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 Should BP drop would recommend stress dose steroids but no indication for stress dose steroids at this moment.
Choledocholithiasis s/p attempt of ERCP with contained duodenal perforation repair during the procedure
CAD: Cont ASA/BB. No statin with h/o statin induced myopathy (as per discussion with pt's )
h/o CVA in 2018: Cont ASA, no statin as above
Essential hypertension: Cont BB
Hyperlipidemia
CKD3a
Cholelithiasis
Inflammatory myopathy: cont Prednisone as above
h/o LE DVT on Eliquis prior
GERD: Cont PPI
Depression: cont Lexapro
h/o Stage 2 coccyx pressure injury
FULL/Lovenox
[2024-02-13 12:00] VITALS: BP 170/85
[2024-02-13 12:04] LABS: Blood Urea Nitrogen 29 mg/dl (9-20); Calcium 9.1 mg/dl (8.4-10.2); Carbon Dioxide 31 mmol/L (22-30); Chloride 103 mmol/L (98-107); Glucose 93 mg/dl (70-99); Potassium 4.3 mmol/L (3.5-5.1); Sodium 139 mmol/L (135-145); eGFR 56.23
--- NOTE | 2024-02-13 13:10 | CON.ORTHO ---
Consultation
-
Date/Time Consultation Requested: 02/13/2024 @ 12:33
Date/Time Consultation Performed: 02/13/2024 @ 12:35
Requesting Provider: Dr. Robert Cardona
Performing Provider: Jeff Flores PA-C for Dr. Patel
Reason for Consultation: Right Hip Fracture
Consultation - Orthopedics
History
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
procedure, CAD, h/o CVA in 2018, essential hypertension, hyperlipidemia, CKD 3A, cholelithiasis, inflammatory myopathy, h/o LLE DVT on Eliquis prior (no longer on anticoagulation), GERD, depression, and stage II coccyx pressure injury, who presents
to [facility] Emergency Department after outpatient MRI revealed a right hip subacute subcapital fracture with mild impaction. Patient reports that he has been experiencing right lateral hip pain over the last several weeks. He denies any
fall responsible for his symptoms. Plain radiographs revealed mild to moderate DJD, without evidence for acute fracture or dislocation. Based upon clinical examination, he was diagnosed with right hip trochanteric bursitis. He underwent a right
hip trochanteric bursal corticosteroid injection, unfortunately without relief of symptoms. He presents to the Emergency Department today for admission and surgical treatment for his right femoral neck fracture. He reports some occasional
discomfort to the right groin, however most of his pain is localized to the lateral hip. He endorses pain with weightbearing activities. The patient has been ambulating with assistance of a walker/cane. Of significance, he underwent left hip
gamma nail fixation on 07/03/2023 for a nondisplaced left intertrochanteric hip fracture. Orthopedic surgery has been consulted for further management. Patient is currently laying in ED bed 17 with at bedside.
PAST MEDICAL HISTORY: Chronic immunosuppression due to steroids for inflammatory myopathy, choledocholithiasis s/p attempt of ERCP with contained duodenal perforation repair during the procedure, CAD, h/o CVA in 2018, essential hypertension,
hyperlipidemia, CKD 3A, cholelithiasis, inflammatory myopathy, h/o LLE DVT on Eliquis prior (no longer on anticoagulation), GERD, depression, and stage II coccyx pressure injury.
PAST SURGICAL HISTORY: Left Hip Gamma Nail 07/03/[address] Bourgeois.
SOCIAL HISTORY: Denies tobacco use. Denies alcohol use. Denies illicit drug use. Lives at home with . Ambulates with assistance of a walker/cane.
FAMILY HISTORY: Non-contributory.
REVIEW OF SYSTEMS: 12-point review of systems obtained and negative except those mentioned in the HPI.
Allergies / Home Medications
Allergy/AdvReac Type Severity Reaction Status Date / Time
gluten Allergy Severe Celiac Verified 02/13/24 10:30
disease
�Medication �Instructions �Recorded
carvedilol 3.125 mg tablet 3.125 mg PO BID Blood pressure 30 10/05/23
days #60 tabs
prednisone 20 mg tablet 10 mg PO DAILY MYOPATHY 10/20/23
pantoprazole 40 mg tablet,delayed 40 mg PO BID #60 tabs 11/02/23
release
acetaminophen 500 mg tablet 1,000 mg PO BID 02/13/24
aspirin 81 mg tablet,delayed 81 mg PO DAILY 02/13/24
release
escitalopram oxalate 20 mg tablet 20 mg PO DAILY 02/13/24
therapeutic multivitamin 1 tab PO DAILY 02/13/24
Vital Signs / Lab Results
Temp Pulse Resp BP Pulse Ox
98.2 F 68 16 170/85 97
02/13/24 10:27 02/13/24 10:27 02/13/24 10:27 02/13/24 12:00 02/13/24 12:01
02/13/24 11:16
02/13/24 11:44
RADIOGRAPHIC FINDINGS:
CR Hip - RT w/wo Pel 2-3 Vw*was obtained at [facility] on 01/18/2024 and was made available for my review today. Findings: There is no fracture or dislocation. There is moderate joint space narrowing with small osteophytes of the superior
acetabulum. Partially visualized vascular stent projects over the left hemipelvis. Likely surgical tracts projecting over the right lower pelvis. Impression: No acute osseous abnormality. Moderate degenerative changes of the right hip.
MRI of the Right hip without contrast was performed at [facility] on 02/13/2024 and was made available for my review today. Findings: Right hip demonstrates a subcapital fracture. No associated significant edema except at the superior
margin. This suggest a subacute fracture. There is foreshortening with mild impaction, with proximal migration of the femoral metaphysis approximately 2.5 cm. The femoral head remains situated within the acetabulum. Bone marrow signal alteration
is demonstrated bilaterally involving the femoral heads, consistent with avascular necrosis. In addition, avascular necrosis on the right appears to extend through the femoral neck into the intertrochanteric region. This is developed since prior
examination. Also since prior examination, there has been LEFT HIP gamma nail fixation. There is a small right hip joint effusion. No labral tear. Moderate to advanced joint space narrowing. There is generalized intramuscular edema of the
abductor musculature, suggesting muscle strain. There is a large amount of generalized edema within the subcutaneous tissues. Impression: Right hip subacute subcapital fracture with mild impaction. Bilateral hip avascular necrosis, right greater
than left.
PHYSICAL EXAM:
General: Well-developed, well-nourished, and in no apparent distress.
HEENT: NCAT, sclerae anicteric, normal conversational hearing.
Heart: No JVD.
Lungs: Normal work of breathing on room air.
MSK: Focused examination of the right lower extremity does not reveal any obvious deformity in comparison to the contralateral side. There is significant pitting edema noted about his bilateral lower extremities, right appearing greater than left.
(+) Logroll. (+) Tenderness to palpation of the right hip. ROM deferred secondary to known fracture. Able to plantarflex and dorsiflex right ankle. Wiggle all toes. Calf is nontender to palpation. NVI distally.
Assessment / Plan
ASSESSMENT: 78-year-old male with a RIGHT hip subacute subcapital fracture with mild impaction.
PLAN: Unfortunately, the patient's MRI revealed a right hip subacute subcapital fracture with mild impaction. MRI also revealed bilateral hip avascular necrosis, right greater than left. Treatment options were discussed with Dr. Bourgeois as well
as the patient and his . Recommend operative fixation. The risks, benefits, potential complications, and expected postoperative course were reviewed. Surgical and blood consents were obtained and scanned into the patient's chart. A copy was
also left with nursing cashiers supervisor (Megan). Alie on-call to OR. We will plan for OR 02/15/2024, under the direction of Dr. Bourgeois for a RIGHT hip percutaneous pinning. Patient has been medically cleared to proceed with surgery.
Patient will remain NPO pMN 02/14/2024. Remain NWB to RLE. Continue with pain medications as needed per primary team. Type and screen ordered. Case posted with nursing cashiers supervisor. Right hip marked as the correct surgical extremity. Hemoglobin
today, 11.5. Please hold Lovenox night before surgery. Orthopedic surgery will continue to follow.
[2024-02-13 14:30] VITALS: BP 163/79
[2024-02-13] MEDS: TYLENOL 650 MG PO ×2 (17:02→20:24)
[2024-02-13] MEDS: LOVENOX 40 MG SC (17:03)
[2024-02-13] MEDS: PROTONIX 40 MG PO (20:24)
[2024-02-13] MEDS: COLACE 100 MG PO (20:24)
[2024-02-13] MEDS: SENOKOT 17.2 MG PO (20:24)
[2024-02-13] MEDS: COREG 3.125 MG PO (20:25)
[2024-02-13 23:08] VITALS: BP 143/78
[2024-02-14] MEDS: TYLENOL PO (00:45)
[2024-02-14] MEDS: TYLENOL 650 MG PO ×5 (04:22→19:55)
[2024-02-14 07:45] VITALS: BP 144/78
[2024-02-14] MEDS: DELTASONE 10 MG PO (08:00)
[2024-02-14] MEDS: COREG 3.125 MG PO ×2 (08:01→19:56)
[2024-02-14] MEDS: VITAMIN B-12 2000 MCG PO (08:01)
[2024-02-14] MEDS: ASPIR LOW (ENTERIC COATED) 81 MG PO (08:02)
[2024-02-14] MEDS: SENOKOT 17.2 MG PO (08:02)
[2024-02-14] MEDS: PROTONIX 40 MG PO ×2 (08:02→19:56)
[2024-02-14] MEDS: COLACE 100 MG PO ×2 (08:02→19:56)
[2024-02-14] MEDS: THERAGRAN 1 TABLET PO (08:02)
[2024-02-14] MEDS: LEXAPRO 10 MG PO (08:02)
[2024-02-14] MEDS: FOLVITE 1 MG PO (08:02)
--- NOTE | 2024-02-14 09:02 | W.PN.UPDATE ---
Update Note
Progress Note Update
Patient resting comfortably in bed this AM. Endorses very minimal pain to the right hip. Anxious to have this fixated tomorrow. Plan is for the OR tomorrow under the direction of Dr. Bourgeois for a cannulated screw fixation of his right femur
fracture. OR aware. He is to remain NPO pMN tonight for surgery tomorrow. PLEASE HOLD LOVENOX AFTER TONIGHT'S DOSE. bedrest for now. Surgical and blood consents have been obtained. Again, we will look to proceed tomorrow
--- NOTE | 2024-02-14 11:24 | W.PN.HOSP.TC ---
Today's Communication/Plan
-
NPO pmn
OR tomm
trend labs
Assessment / Plan
Assessment / Plan
Gen: NAD, AAOx3.
Eyes: EOMI, no scleral icterus.
Neck: supple.
CV: RRR, +S1/S2, no m/r/g.
Resp: CTAB, no rales, wheezes, or rhonchi.
Abd: +BS, soft, NT, ND
Skin: No rashes.
Neuro: CN 2-12 intact, non-focal.
Psych: Normal mood and affect.
MRI R hip: Right hip subacute subcapital fracture with mild impaction. Bilateral hip avascular necrosis, right greater than left.
R hip fx:
-pain control. bowel regimen. post-op DVT ppx per ortho.
-plan for OR 02/15/24
Other problems:
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 Should BP drop would recommend stress dose steroids but no indication for stress dose steroids at this moment.
Choledocholithiasis s/p attempt of ERCP with contained duodenal perforation repair during the procedure
CAD: Cont ASA/BB. No statin with h/o statin induced myopathy (as per discussion with pt's )
h/o CVA in 2018: Cont ASA, no statin as above
Essential hypertension: Cont BB
Hyperlipidemia
CKD3a
Cholelithiasis
Inflammatory myopathy: cont Prednisone as above
h/o LE DVT on Eliquis prior
GERD: Cont PPI
Depression: cont Lexapro
h/o Stage 2 coccyx pressure injury
FULL scds
Anticipated Discharge: > 48 hours
Subjective/Interval History
-
Date of Service: February 14, 2024
resting in bed
states of hip soreness
Objective Data
-
Vital Signs:
Vital Signs
Temp Pulse Resp BP Pulse Ox
97.7 F 58 16 144/78 100
02/14/24 07:45 02/14/24 08:01 02/14/24 07:45 02/14/24 08:01 02/14/24 07:45
I&O
02/13/24 02/14/24 02/15/24
06:59 06:59 06:59
Intake Total 960 / 960
Output Total 900 / 900
Balance 60 / 60
--- NOTE | 2024-02-14 12:23 | CM ---
Adm dx - Right hip fx
Met with pt at bedside
Pt reports he lives with his in a 2 story home; 2 steps to enter, FF set-up
Reports independent with ADL's at baseline, rolling walker with ADL's, some assist needed around home
DME - hospital bed, rolling walker, shower chair
SNF - [facility] in past
- [facility]
PCP - [facility]
Pharm - [facility]
Pt for OR tomorrow for repair of hip fx
PT/OT recs post-op
Plan - TBD based on PT/OT recs post op
--- NOTE | 2024-02-14 13:07 | W.PN.UPDATE ---
Update Note
Progress Note Update
Patient seen and examined. I agree with orthopedic PA note.
Patient's right hip pain became more severe and I ordered an MRI. Radiologist contacted me yesterday and he was taken to emergency room at my request for admission by hospitalist service.
Right lower extremity: Severe edema. Positive logroll. Neurovascularly intact.
MRI performed at [facility] of the right hip yesterday shows an impacted subcapital subacute femoral neck fracture with AVN in and around the region of the intertrochanteric region.
Subacute right femoral neck fracture impacted
Nonoperative and operative approaches of this were discussed with and patient. The operative approaches would be total joint replacement versus cannulated screw fixation. He is interested in minimally invasive approach to fixing this fracture
and therefore we will do cannulated screw fixation. This does have an opportunity to help decompress the area of avascular necrosis. This may need to be converted to total joint replacement if he is not healing appropriately. They understand
this. The risks are but are not limited to infection, need for further surgery, need for physical therapy, stiffness, DVT, PE, PA, CVA, malunion, nonunion, hardware failure, screw penetration in the joint, DJD, worsening of avascular necrosis.
Neurovascular impairment, catastrophic occurrences, etc. They understand these risks. All questions were answered. Will do this procedure tomorrow in the afternoon. He is to be n.p.o. past midnight.
[2024-02-14 16:14] VITALS: BP 141/74
[2024-02-14] MEDS: SENOKOT PO (19:55)
[2024-02-14 23:58] VITALS: BP 155/86
[2024-02-15] VITALS (14 sets, daily range): BP systolic 141–187; BP diastolic 77–98
[2024-02-15] MEDS: TYLENOL PO ×2 (00:04→16:46)
[2024-02-15] MEDS: TYLENOL 650 MG PO ×4 (04:40→19:45)
[2024-02-15 06:53] LABS: % Basophils 0.5 % (0-2); % Eosinophils 0.8 % (0-6); % Immature Granulocytes 1.4 % (0-0.5); % Lymphocytes 18.5 % (20.5-51.1); % Neutrophils 70.8 % (42.2-75.2); Absolute Basophils 0.1 10^3/uL (0-0.2); Absolute Eosinophils 0.1 10^3/uL (0-0.7); Absolute Immature Granulocytes 0.1 10^3/uL (0-0.05); Absolute Lymphocytes 1.8 10^3/uL (1.2-3.4); Absolute Monocytes 0.8 10^3/uL (0.1-0.6); Hemoglobin 11.9 g/dL (13.0-18.0); Mean Corp Hgb Conc. 33.1 g/dL (33.0-37.0); Mean Corpuscular Volume 99.7 fL (80.0-94.0); Mean Platelet Volume 9.7 fL (7.4-10.4); Nucleated Red Blood Cells % 0 % (-); Platelet Count 250 10^3/uL (130-400); Red Blood Cell Count 3.61 10^6/uL (4.70-6.10); Red Cell Dist. Width 14.7 % (11.5-14.5); White Blood Cell Count 9.8 10^3/uL (4.8-10.8)
[2024-02-15 07:16] LABS: Blood Urea Nitrogen 29 mg/dl (9-20); Calcium 9.1 mg/dl (8.4-10.2); Carbon Dioxide 31 mmol/L (22-30); Chloride 102 mmol/L (98-107); Estimated Creatinine Clearance 56 ml/min; Glucose 82 mg/dl (70-99); Potassium 4.9 mmol/L (3.5-5.1); Sodium 140 mmol/L (135-145); eGFR > 60.00
--- NOTE | 2024-02-15 07:20 | W.PN.UPDATE ---
Update Note
Progress Note Update
Patient seen and evaluated by Orthopedic surgery this morning. He is lying in bed comfortably. Endorses very minimal pain to the right hip. Plan is for the OR this afternoon under the direction of Dr. Bourgeois for right hip pinning of his right
femur fracture. He is to remain NPO. Remain NWB to RLE. Consent in chart. Ancef on-call to the OR. Hemoglobin this AM 11.9. All questions answered.
[2024-02-15] MEDS: ASPIR LOW (ENTERIC COATED) 81 MG PO (08:36)
[2024-02-15] MEDS: VITAMIN B-12 2000 MCG PO (08:36)
[2024-02-15] MEDS: DELTASONE 10 MG PO (08:36)
[2024-02-15] MEDS: PROTONIX 40 MG PO ×2 (08:36→19:45)
[2024-02-15] MEDS: COREG 3.125 MG PO ×2 (08:36→19:47)
[2024-02-15] MEDS: LEXAPRO 10 MG PO (08:37)
[2024-02-15] MEDS: FOLVITE 1 MG PO (08:37)
[2024-02-15] MEDS: SENOKOT PO (08:37)
[2024-02-15] MEDS: THERAGRAN 1 TABLET PO (08:37)
[2024-02-15] MEDS: COLACE PO (08:37)
--- NOTE | 2024-02-15 11:18 | CM ---
Reviewed the chart notes. Plan per ortho, is OR today for pinning of femur fracture. CM continues to be available to patient/family and is monitoring medical plan for needs at discharge.
Plan: Discharge plans will depend on the patient's progress after surgery.
--- NOTE | 2024-02-15 11:19 | W.PN.HOSP.TC ---
Today's Communication/Plan
-
OR today
Pain control
post OP dvt ppx per ortho
monitor BP-PRN meds ordered
Assessment / Plan
Assessment / Plan
Gen: NAD, AAOx3.
Eyes: EOMI, no scleral icterus.
Neck: supple.
CV: RRR, +S1/S2, no m/r/g.
Resp: CTAB, no rales, wheezes, or rhonchi.
Abd: +BS, soft, NT, ND
Skin: No rashes.
Neuro: CN 2-12 intact, non-focal.
Psych: Normal mood and affect.
MRI R hip: Right hip subacute subcapital fracture with mild impaction. Bilateral hip avascular necrosis, right greater than left.
R hip fx:
-pain control. bowel regimen. post-op DVT ppx per ortho.
-plan for OR 02/15/24
Essential hypertension
-Cont coreg for now
-PRN hydralazine.
-If persistently elevated will start additional agents. CCB preferred as with CKD
Other problems:
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 Should BP drop would recommend stress dose steroids but no indication for stress dose steroids at this moment.
Choledocholithiasis s/p attempt of ERCP with contained duodenal perforation repair during the procedure
CAD: Cont ASA/BB. No statin with h/o statin induced myopathy (as per discussion with pt's )
h/o CVA in 2018: Cont ASA, no statin as above
Hyperlipidemia
CKD3a
Cholelithiasis
Inflammatory myopathy: cont Prednisone as above
h/o LE DVT on Eliquis prior
GERD: Cont PPI
Depression: cont Lexapro
h/o Stage 2 coccyx pressure injury
FULL scds
Anticipated Discharge: > 48 hours
Subjective/Interval History
-
Date of Service: February 15, 2024
denies severe hip pain
Objective Data
-
Labs:
Laboratory Results
02/15/24
05:20
WBC 9.8
Hgb 11.9 L
Hct 36.0 L
Plt Count 250
Sodium 140
Potassium 4.9
Chloride 102
Carbon Dioxide 31 H
BUN 29 H
Creatinine 1.2
Glucose 82
Calcium 9.1
Vital Signs:
Vital Signs
Temp Pulse Resp BP Pulse Ox
97.7 F 66 18 163/83 99
02/15/24 11:00 02/15/24 11:00 02/15/24 11:00 02/15/24 11:00 02/15/24 11:00
I&O
02/14/24 02/15/24 02/16/24
06:59 06:59 06:59
Intake Total 960 / 960 720 / 720
Output Total 900 / 900 1295 / 1295
Balance 60 / 60 -575 / -575
[2024-02-15] MEDS: APRESOLINE 10 MG IV (11:28)
--- NOTE | 2024-02-15 11:33 | PN.CDI ---
CDI
- -
CDI:
Physician Documentation Request
Admit Date: 02/13/24 13:04
Dear Doctor Carolyn,
Patient presented to ED complaining of right sided hip discomfort over the last several weeks. He has a history of nontraumatic fracture of the left hip. MRI found to be positive for right hip fracture as well as avascular necrosis.
Please provide further specificity regarding the diagnosis of fracture:
Etiology
Traumatic
Pathologic due to osteoporosis
Pathologic due to other disease (please specify)
Due to a combination of trauma and a pathological process
but the trauma alone would not likely have been sufficient
to cause the fracture
Use of terms such as suspected, likely, concern for, or probable (associated with a specific diagnosis that is being evaluated, monitored, or treated as if it exists) are acceptable and can be coded in the inpatient setting, when documented at the
time of discharge.
Thank you,
Yecenia Barron RN, BSN
CDI Specialist
tiger text
Please use your independent medical judgment in providing your response.
--- NOTE | 2024-02-15 11:59 | PTCARENOTE ---
Pt continues with hypertension despite antihypertensive medications. Dr Leon aware and advised RN to monitor for now. Care remains ongoing.
--- NOTE | 2024-02-15 18:33 | PTCARENOTE ---
Pt returned from PACU in bed. RLE with decreased movement, neurovascular assessment otherwise WDL. R hip DSG with a large amount of drainage, DSG ballooned. Per Amanda CHAIN SAW DRIVER, Dr Bourgeois aware and does not want DSG changed at this time. Bed
locked and in the lowest position, safety maintained. Oriented to room and call waller.
[2024-02-15] MEDS: SENOKOT 17.2 MG PO (19:46)
[2024-02-15] MEDS: COLACE 100 MG PO (19:47)
[2024-02-16] VITALS (8 sets, daily range): BP systolic 109–171; BP diastolic 63–91; PULSE 105; O2SAT 99–100; BMI 28.5
[2024-02-16] MEDS: TYLENOL PO (00:29)
[2024-02-16] MEDS: TYLENOL 650 MG PO ×5 (04:07→19:37)
[2024-02-16 05:54] LABS: % Basophils 0.1 % (0-2); % Immature Granulocytes 1.4 % (0-0.5); % Lymphocytes 6.4 % (20.5-51.1); % Monocytes 2.5 % (1.7-9.3); % Neutrophils 89.6 % (42.2-75.2); Absolute Immature Granulocytes 0.1 10^3/uL (0-0.05); Absolute Lymphocytes 0.6 10^3/uL (1.2-3.4); Absolute Monocytes 0.2 10^3/uL (0.1-0.6); Absolute Neutrophils 7.9 10^3/uL (1.4-6.5); Hematocrit 40.3 % (39.0-52.0); Mean Corp Hgb Conc. 32.3 g/dL (33.0-37.0); Mean Corpuscular Hgb 32.1 pg (27.0-31.0); Mean Corpuscular Volume 99.5 fL (80.0-94.0); Mean Platelet Volume 9.5 fL (7.4-10.4); Nucleated Red Blood Cells % 0 % (-); Platelet Count 268 10^3/uL (130-400); Red Blood Cell Count 4.05 10^6/uL (4.70-6.10); Red Cell Dist. Width 14.6 % (11.5-14.5); White Blood Cell Count 8.8 10^3/uL (4.8-10.8)
[2024-02-16 06:32] LABS: Blood Urea Nitrogen 30 mg/dl (9-20); Calcium 9.3 mg/dl (8.4-10.2); Carbon Dioxide 29 mmol/L (22-30); Chloride 101 mmol/L (98-107); Estimated Creatinine Clearance 61 ml/min; Glucose 119 mg/dl (70-99); Potassium 5.5 mmol/L (3.5-5.1); Sodium 138 mmol/L (135-145); eGFR > 60.00
--- NOTE | 2024-02-16 07:19 | W.PN.ORTHO ---
Today's Communication / Plan
-
78 yo F POD1 left hip cannulated screw fixation under the direction of Dr. Bourgeois
--PWB to RLE with walker. We appreciate the assistance of PT/OT.
--Recommend ASA 325 mg daily x4 weeks for DVT ppx.
--Hgb 13.0 this AM. Continue to monitor.
--Continue pain control prn. Ice and elevation for edema control.
--Maintain surgical dressing until 7-10 days post-op. Reinforce or change dressing as needed.
--Case management consult for dc planning.
--Orthopedics will continue to follow along.
Assessment
.
Distal Motor Intact: Yes
Dressing:
Clean, dry and intact.
Plan
.
Surgery / Date: Right hip pinning, Christelle, 02/14
DVT Prophylaxis: Aspirin
Activity:
Out of bed.
PT/OT
Subjective
.
.:
Mr. Soriano is a 78 year old male POD1 following his right hip cannulated screw fixation for femoral neck fracture performed by Dr. Bourgeois. He is resting comfortably in bed this morning, and denies any pain in the hip at present. He has no
questions or concerns at this time.
Vital Signs and Labs
.
Vital Signs and Labs:
Lab Results
02/16/24 05:18
02/16/24 05:18
Temp Pulse Resp BP Pulse Ox
97.5 F 68 18 159/89 96
02/16/24 03:15 02/16/24 03:15 02/16/24 03:15 02/16/24 03:15 02/16/24 03:15
Physical Exam
-
Directed exam of the right hip reveals surgical dressing saturated with serosanguineous fluid. This was removed. Surgical incision well approximated with sutures. Small amount of active serosanguineous drainage. Incision cleaned with betadine and
new dressing placed. Mild tenderness to palpation over the lateral hip. Thigh soft and compressible. Calf soft and nontender. Patient able to wiggle toes, plantar and dorsiflex ankle. Neurovascularly intact distally.
[2024-02-16] MEDS: PROCARDIA XL (EXTENDED RELEASE) 30 MG PO (07:54)
[2024-02-16] MEDS: PROTONIX 40 MG PO ×2 (07:55→19:37)
[2024-02-16] MEDS: COREG 3.125 MG PO ×2 (07:55→19:40)
[2024-02-16] MEDS: VITAMIN B-12 2000 MCG PO (07:55)
[2024-02-16] MEDS: THERAGRAN 1 TABLET PO (07:55)
[2024-02-16] MEDS: ASPIRIN 325 MG PO (07:55)
[2024-02-16] MEDS: LEXAPRO 10 MG PO (07:55)
[2024-02-16] MEDS: DELTASONE 10 MG PO (07:55)
[2024-02-16] MEDS: COLACE 100 MG PO ×2 (07:55→19:37)
[2024-02-16] MEDS: FOLVITE 1 MG PO (07:55)
[2024-02-16] MEDS: SENOKOT 17.2 MG PO ×2 (07:56→19:37)
[2024-02-16] MEDS: APRESOLINE 10 MG IV (07:56)
[2024-02-16] MEDS: LOKELMA 10 GRAM PO (10:20)
--- NOTE | 2024-02-16 11:00 | W.PN.HOSP.TC ---
Addendum entered and electronically signed by Louis Leon MD 02/16/24 12:06:
unclear etiology of RIGHT hip subacute subcapital fracture with mild impaction.
Original Note:
Today's Communication/Plan
-
start procardia
asa 325mg
PT/OT
trend hgb
Assessment / Plan
Assessment / Plan
Gen: NAD, AAOx3.
Eyes: EOMI, no scleral icterus.
Neck: supple.
CV: RRR, +S1/S2, no m/r/g.
Resp: CTAB, no rales, wheezes, or rhonchi.
Abd: +BS, soft, NT, ND
Skin: No rashes.
Neuro: CN 2-12 intact, non-focal.
MSK-R hip aquacell dressing noted. No severe swelling/hematoma noted
Psych: Normal mood and affect.
MRI R hip: Right hip subacute subcapital fracture with mild impaction. Bilateral hip avascular necrosis, right greater than left.
R hip fx:
-pain control. bowel regimen. post-op DVT ppx asa 325mg daily.
-s/p left hip cannulated screw fixation on 02/[address] Bourgeois
-pain control. bowel regimen. PT/OT
Essential hypertension
-Cont coreg for now
-PRN hydralazine.
-started procardia.
Other problems:
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 Should BP drop would recommend stress dose steroids but no indication for stress dose steroids at this moment.
Choledocholithiasis s/p attempt of ERCP with contained duodenal perforation repair during the procedure
CAD: Cont ASA/BB. No statin with h/o statin induced myopathy (as per discussion with pt's )
h/o CVA in 2018: Cont ASA, no statin as above
Hyperlipidemia
CKD3a
Cholelithiasis
Inflammatory myopathy: cont Prednisone as above
h/o LE DVT on Eliquis prior
GERD: Cont PPI
Depression: cont Lexapro
h/o Stage 2 coccyx pressure injury
FULL scds/asa
Anticipated Discharge: 24 - 48 hours
Subjective/Interval History
-
Date of Service: February 16, 2024
states of mild hip soreness
Objective Data
-
Labs:
Laboratory Results
02/16/24
05:18
WBC 8.8
Hgb 13.0
Hct 40.3
Plt Count 268
Sodium 138
Potassium 5.5 H
Chloride 101
Carbon Dioxide 29
BUN 30 H
Creatinine 1.1
Glucose 119 H
Calcium 9.3
Vital Signs:
Vital Signs
Temp Pulse Resp BP Pulse Ox
97.6 F 77 16 171/91 96
02/16/24 07:35 02/16/24 07:56 02/16/24 07:35 02/16/24 07:56 02/16/24 07:35
I&O
02/15/24 02/16/24 02/17/24
06:59 06:59 06:59
Intake Total 720 / 720 220 / 220
Output Total 1295 / 1295 1000 / 1000
Balance -575 / -575 -780 / -780
Data Reviewed
-
Total Time Spent with Patient (in minutes): 52
--- NOTE | 2024-02-16 11:14 | CM ---
Reviewed the chart notes and spoke with the patient at the bedside. PT recommending Acute Rehab. Patient interested in [facility]. Referral sent via [facility]. CM continues to be available to patient/family and is monitoring medical plan for needs
at discharge.
Plan: Discharge to Acute Rehab once bed secured. No precert required.
[2024-02-17] MEDS: TYLENOL PO ×3 (00:31→12:16)
[2024-02-17 06:33] LABS: % Basophils 0.2 % (0-2); % Immature Granulocytes 1.5 % (0-0.5); % Lymphocytes 8.4 % (20.5-51.1); % Monocytes 8.5 % (1.7-9.3); % Neutrophils 81.4 % (42.2-75.2); Absolute Immature Granulocytes 0.2 10^3/uL (0-0.05); Absolute Lymphocytes 0.9 10^3/uL (1.2-3.4); Absolute Neutrophils 9.1 10^3/uL (1.4-6.5); Hematocrit 34.3 % (39.0-52.0); Hemoglobin 11.3 g/dL (13.0-18.0); Mean Corp Hgb Conc. 32.9 g/dL (33.0-37.0); Mean Corpuscular Hgb 33.3 pg (27.0-31.0); Mean Corpuscular Volume 101.2 fL (80.0-94.0); Mean Platelet Volume 9.8 fL (7.4-10.4); Nucleated Red Blood Cells % 0 % (-); Platelet Count 248 10^3/uL (130-400); Red Blood Cell Count 3.39 10^6/uL (4.70-6.10); Red Cell Dist. Width 15.1 % (11.5-14.5); White Blood Cell Count 11.2 10^3/uL (4.8-10.8)
[2024-02-17 07:11] LABS: Blood Urea Nitrogen 46 mg/dl (9-20); Calcium 8.9 mg/dl (8.4-10.2); Carbon Dioxide 25 mmol/L (22-30); Chloride 101 mmol/L (98-107); Estimated Creatinine Clearance 48 ml/min; Glucose 114 mg/dl (70-99); Potassium 4.3 mmol/L (3.5-5.1); Sodium 138 mmol/L (135-145); eGFR 51.45
--- NOTE | 2024-02-17 07:44 | W.PN.ORTHO ---
Documented by User: Alexei Parker PA-C 02/17/24 07:45
Today's Communication / Plan
-
PT/OT
Partial weightbearing with walker
Aspirin for DVT prophylaxis
Skin clip removal 2 weeks postop
Follow-up orthopedics 4 weeks for x-ray
long-term facility once medically stable
Assessment
.
Distal Motor Intact: Yes
Dressing:
Clean, dry and intact.
Plan
.
Surgery / Date: Right hip pinning, Christelle, 02/14
DVT Prophylaxis: Aspirin
Activity:
Out of bed.
PT/OT
Discharge Plan: SNF
Subjective
.
.:
Patient resting comfortably.
Vital Signs and Labs
.
Vital Signs and Labs:
Lab Results
02/17/24 04:45
02/17/24 04:45
Temp Pulse Resp BP Pulse Ox
98.1 F 93 18 117/65 96
02/16/24 23:49 02/16/24 23:49 02/16/24 23:49 02/16/24 23:49 02/16/24 23:49

Documented by User: Myriam Bourgeois DO 02/17/24 12:59
Today's Communication / Plan
-
PT/OT
Partial weightbearing with walker
Aspirin for DVT prophylaxis
dressing 1 wk postop
Follow-up orthopedics 4 weeks for x-ray
long-term facility/rehab once medically stable
[2024-02-17 08:00] VITALS: BP 118/80
[2024-02-17] MEDS: LEXAPRO 10 MG PO (08:58)
[2024-02-17] MEDS: THERAGRAN 1 TABLET PO (08:58)
[2024-02-17] MEDS: SENOKOT 17.2 MG PO ×2 (08:59→20:57)
[2024-02-17] MEDS: COLACE 100 MG PO ×2 (08:59→20:58)
[2024-02-17] MEDS: PROTONIX 40 MG PO ×2 (08:59→20:58)
[2024-02-17] MEDS: FOLVITE 1 MG PO (08:59)
[2024-02-17] MEDS: VITAMIN B-12 2000 MCG PO (08:59)
[2024-02-17] MEDS: ASPIRIN 325 MG PO (08:59)
[2024-02-17] MEDS: DELTASONE 10 MG PO (09:00)
[2024-02-17] MEDS: TYLENOL 650 MG PO ×3 (09:00→20:57)
[2024-02-17] MEDS: PROCARDIA XL (EXTENDED RELEASE) 30 MG PO (09:00)
[2024-02-17] MEDS: COREG 3.125 MG PO ×2 (09:00→20:58)
[2024-02-17 10:15] VITALS: BP 125/71; BP 138/77; BP 150/70; BP 163/82; PULSE 117; PULSE 94; PULSE 98; O2SAT 98
--- NOTE | 2024-02-17 10:19 | CON.MD ---
Addendum entered and electronically signed by Torrey Arias MD 02/17/24 15:45:
Edema: Moderate pitting edema of whole LLE<del>-</del> <del>improved</del> <del>from</del> <del>prior,</del> <del>slight</del> moderate pitting edema in RLE
Original Note:
Consultation - Medical
-
Referring Provider:�Dr. Louis Leon.
Chief Complaint:�Subacute right subcapital hip fracture with mild impaction
�
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
toxic/necrotic myopathy) with recent history of right hip pain for a few weeks status post corticosteroid injection for trochanteric bursitis. Found to have a right subcapital hip fracture with mild impaction and bilateral AVN right greater than
left. Status post cannulated screw fixation of the right femoral neck fracture on 02/15/[address] Myriam Bourgeois.
Patient notes that he had been walking around pretty well being mostly independent with his activities. Limited with distance for walking but took his time to go further distances. Has some pain in the hip but controlled with medications.
Past Medical History: ASCVD, HTN, CKD3 GERD, Celiac disease, Lumbar DDD, Cholelithiasis, Klebsiella urosepsis, syncope, orthostasis, inflammatory myopathy right posterior tibial DVT, thrombocytopenia, coccyx pressure injury, depression, CVA 2018, CAD
Procedure History: Left hip ORIF 06/2023, Left Iliac Vein Stenting, Hernia Repairs, Cataracts, Eye Surgery (in childhood), ERCP with perforation repair
Family History: Heart disease
�
Social History:�
Functional Level Premorbidly:�Requires assistance for ADLs, ambulating with walker
Functional Level Currently:�Max assist lower extremity self-care, supervision bed mobility, mod assist transfers. Noted with some hypotension and tachycardia.
�
Tobacco:�Denies�
Alcohol:�Denies�
Drug use:�Denies�
�
Lives with: Spouse
24-hour assistance available: Yes
Number of floors: multilevel
# steps to enter: 2+2, has ramp now
# steps to second floor: Full flight
Potential First floor set up: yes
Driving: was previously until recent surgery
Occupation: retired
�
Allergies:�
Allergy/AdvReac Type Severity Reaction Status Date / Time
gluten Allergy Celiac Verified 02/15/24 16:18
disease
�
Review of Systems:�
Constitutional: (x) abNormal _fatigue
Eye: (x) Normal _
Ear/Nose/Throat: (x) Normal _
Respiratory: (x) Normal _
Cardiovascular: (x) Normal _
Gastrointestinal: (x) sepsis, UTI
Genitourinary: (x) Normal _
Musculoskeletal: (x)back, weakness, s/p right hip fracture
Integumentary: (x) Normal _
Neurologic: (x) Normal _
Psychiatric: (x) Normal _
Endocrine: (x) Normal _
Hematologic/Lymphatic: (x) Normal _
Allergic/Immunologic: (x) Normal _
�
Medications:�
Active Current Visit Medication List
Category Date Time Status
Acetaminophen [Tylenol] Med 02/13/24 16:00 Active
650 mg PO Q4HWA
Aspirin Med 02/16/24 08:00 Active
325 mg PO DAILY
Carvedilol [Coreg] Med 02/13/24 20:00 Active
3.125 mg PO BID
Cyanocobalamin [Vitamin B-12] Med 02/14/24 08:00 Active
2,000 mcg PO DAILY
Docusate Sodium [Colace] Med 02/13/24 20:00 Active
100 mg PO BID
Escitalopram Oxalate [Lexapro] Med 02/14/24 08:00 Active
10 mg PO DAILY
FOLic ACID [Folvite] Med 02/14/24 08:00 Active
1 mg PO DAILY
Flush (0.9% Sodium Chloride) [Flush (Nss)] Med 02/13/24 16:00 Active
See Dose Instructions IV PER PROTOCOL
HydrALAZINE [Apresoline] Med 02/15/24 10:16 Active
10 mg IV Q6HPRN PRN
Magnesium Hydroxide [Milk of Magnesia] Med 02/13/24 14:50 Active
30 ml PO DAILYPRN PRN
Multivitamin [Theragran] Med 02/14/24 08:00 Active
1 tablet PO DAILY
NIFEdipine EXTENDED RELEASE [Procardia Xl (Extended Med 02/16/24 08:00 Active
Release)]
30 mg PO DAILY
Oxycodone [Roxicodone] Med 02/13/24 14:50 Active
5 mg PO Q4HPRN PRN
Pantoprazole [Protonix] Med 02/13/24 20:00 Active
40 mg PO BID
Prednisone [Deltasone] Med 02/14/24 08:00 Active
10 mg PO DAILY
Sennosides [Senokot] Med 02/13/24 20:00 Active
17.2 mg PO BID
Tamsulosin [Flomax] Med 02/13/24 14:50 Active
0.4 mg PO DAILYPRN PRN
�
Vitals:�
Temp Pulse Resp BP Pulse Ox
98.0 F 84 16 118/80 96
02/17/24 08:00 02/17/24 08:00 02/17/24 08:00 02/17/24 08:00 02/17/24 08:00
Height 6 ft
Actual Weight 95.254 kg
Body Mass Index (BMI) 28.5
�
Physical Exam:�
General Appearance/Observation: Well-developed, well-nourished male in no apparent distress.
Pain/Comfort Assessment: Mild right hip controlled with medication
Mood/Affect: Appropriate
Integumentary/Operative Site: Erythema below the left knee down to the toes, worse at the toes. No open lesions noted very blanchable with light touch with good refill. Mild warmth. Petechial rash pattern. None over the other extremities or
trunk.
-Right hip Aquacel with moderate drainage.
Eyes: Conjunctiva/Lids: normal ��� Pupils: pupils equal round and reactive to light and Accommodation
Ears/Nose/Throat: oral mucosa moist,� throat clear.������������ Lips/Teeth/Gums: normal
Cardiovascular: Heart: regular, no murmur
Pulses: dorsalis pedis 1+ bilaterally
Respiratory: Respiratory Effort/Chest Expansion: normal ������� Auscultation: Clear to auscultation bilaterally
Gastrointestinal: abdomen not tender, no distension, normal abdominal bowel sounds
Genitourinary: No Villareal
Extremities: Edema: Moderate pitting edema of whole LLE- improved from prior, slight pitting edema in RLE Cyanosis: None Trophic changes: None
Neurology Exam:
Orientation: Alert, Oriented to self, Time, Place
Memory: Intact for immediate concerns
Repetition: Intact
Comprehension: Intact
Two step command: Intact
Naming: Intact
Cranial Nerves:
�� CNII: Pupillary light reflex: Intact��� Visual Field: Intact
�� CN III, IV, : Extraocular muscles: Intact
�� CN V: Facial Sensation at Forehead: Intact, Maxilla: Intact, Mandible: Intact
�� CN VII: Facial movement: Symmetric
�� CN VIII: Hearing: Normal
�� CN IX/X: Speech & swallow: Normal, Position of Uvula: Midline
�� CN XI: Shoulder shrug: Symmetric
�� CN XII: Tongue protrusion: Midline
Sensory:
�� Light touch: Intact in bilateral upper and lower extremities
Reflexes:
�� Biceps: 2+ bilaterally
�� Brachioradialis: 2+ bilaterally
�� Triceps: 2+ bilaterally
�� Patellar: absent bilaterally
�� Achilles:absent bilaterally
�� Babinski: Down going bilaterally
�� Cecilio: Negative bilaterally
Cerebellar: Dysmetria/Ataxia: not tested.
Musculoskeletal: Motor: (Manual muscle scale 0-5)
Muscle SA EF WE EE FF FA HF KE DF EHL PF
Right� 4 4 3+ 4 3 1 3 4 4
Left 4 4 3+ 4 3 2 4 4 4
Tone: Normal in all extremities
Range of Motion: Passively within normal limits in all extremities
�
Lab Results
Laboratory Data
02/17/24 04:45
02/17/24 04:45
�
Diagnostic Results:�as per HPI�
�
Assessment
78 y/o M PMH (ASCVD, HTN, CKD3 GERD, Celiac disease, Lumbar DDD, Cholelithiasis, Klebsiella urosepsis, syncope, orthostasis, inflammatory myopathy right posterior tibial DVT, chronic thrombocytopenia, coccyx pressure injury, depression, CVA 2018)
with 02/13/2024 admission for right subcapital hip fracture on MRI s/p cannulated screw fixation of the right femoral neck fracture on 02/15/[address] Myriam Bourgeois with partial weightbearing���with ADL and ambulatory dysfunction.
�
Plan�
PM&R�PT/OT to increase independence with ADLs, improve balance, coordination, endurance, strength, mobility, community reintegration, decreased burden of care on others and family education.�
�
Right subcapital Hip fracture s/p 02/15/2024 fixation: PWB, monitor incision, pain control, incision care per orthopedics, may shower, dressings can be removed postop day 7, laney removed postop day 14. Maintain full range of motion.�
Orthostatic hypotension: check orthostatic pressure.
-Last stay required Midodrine to 5-10 mg 3 times daily, DORA stocking.
-May need to hold nifedipine 30 mg daily and make in the evening for supine hypertension.
-Avoid hydralazine
Left leg erythema from knee down to toes: Vascular versus infectious versus skin reaction. May benefit from lower extremity for arterial Dopplers. Was not there this morning as discussed with nursing and patient. No creams lotions or other things
put on the skin today. No new medication.
Inflammatory myopathy. 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 Some mild improvements with steroids/IVIG.
-Statin induced is likely with positive HMGCR antibody IgG, off statin
-Prednisone now 10 mg.
ASCVD- Home med regimen ASA 81mg daily. Not on statin with statin myopathy concern. Currently on full dose aspirin for DVT prophylaxis
Chronic Cholelithiasis / Choledocholithiasis: Noted
CKD III-mild increase in BUN and creatinine. Push po fuids
RIGHT POSTERIOR TIBIAL VEIN DVT history--no longer on anticoagulation. Consider higher level of anticoagulation than aspirin 325 mg daily
Bilateral lower extremity edema: Thigh-high teds RLE. Patient to wear his own on the LLE
HTN: Carvedilol 3.125 twice daily, suggest stopping nifedipine during the day and potentially changing to at dinner with hypotension.
Anemia: Likely multifactorial. Hgb-10.2 to 11.4- monitor
Psych: Psychology consult.� Monitor mood, Lexapro 10mg qd
Skin: monitor for pressure sores/rashes/lesions.
Pain: acetaminophen or 5 mg as needed.
FEN: Regular solids and thin liquids
Bowel: Colace, senna
Bladder: No retention concerns. Flomax as needed
GI Prophylaxis: Protonix 40 mg daily
Pulmonary: Incentive spirometry
Safety: Continue to reinforce assistance with all transfers.
Code Status:� Full code
Dispo (date/plan/equipment needs): Home with family care.� Social history reviewed.
Functional and Medical Goals:�Modified Independent with ADL�s, ambulation, transfers�
Discharge Destination:�Acute inpatient rehabilitation with hip fracture partial weightbearing with significant orthostasis and tachycardia as well as hypertension requiring further medical management.
�
Summary of recommendations:
-�Discharge Destination:��Acute inpatient rehabilitation with hip fracture partial weightbearing with significant orthostasis and tachycardia as well as hypertension requiring further medical management. The
Right subcapital Hip fracture s/p 02/15/2024 fixation: PWB, monitor incision, pain control, incision care per orthopedics, may shower, dressings can be removed postop day 7, laney removed postop day 14. Maintain full range of motion.�
Orthostatic hypotension: check orthostatic pressure.
-Last stay required Midodrine to 5-10 mg 3 times daily, DORA stocking.
-May need to hold nifedipine 30 mg daily and make in the evening for supine hypertension.
-Avoid hydralazine
Left leg erythema from knee down to toes: Vascular versus infectious versus skin reaction. May benefit from lower extremity for arterial Dopplers. Was not there this morning as discussed with nursing and patient. No creams lotions or other things
put on the skin today. No new medication.
Inflammatory myopathy. 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 Some mild improvements with steroids/IVIG.
-Statin induced is likely with positive HMGCR antibody IgG, off statin
-Prednisone now 10 mg.
Thank you for allowing me to care for your patient. Please contact me with any questions or concerns.
[2024-02-17 10:44] VITALS: BP 125/71; BP 138/77; BP 150/70; BP 163/82; PULSE 117; PULSE 94; PULSE 98; O2SAT 98
--- NOTE | 2024-02-17 10:59 | W.PN.HOSP.TC ---
Addendum entered and electronically signed by Louis Leon MD 02/17/24 13:13:
Patient with left lower extremity erythema-new onset. Denies any trauma. Denies any PAIN to LLE. States of chronic lower extremity bilateral edema. Denies pruritus. Upon examination Erythema new in onset compared to this morning. Patient with
erythema from mid thighs all the way up to great toe. Left leg and great toe is WARM to touch. Erythema noted. 2+ pitting edema. Patient with positive pulses with Doppler. Patient with poor skin hygiene. Poor nail condition. No open wound
noted. No other skin rash noted throughout body. Will check LE VENOUS DOPPLER. Start IV antibiotics. Vascular Checks. Will continue to monitor. d/w with RN.
d/w case further with Dr. Arias as plan for [facility] eventually. Patient with history of DVT on RLE while on aspirin. Will discontinue aspirin and start patient on Lovenox. Patient also with history of orthostatic hypotension with supine
hypertension. Patient with drop in blood pressure earlier this morning. Will stop Procardia. Start midodrine. continue to monitor blood pressure.
Original Note:
Today's Communication/Plan
-
await placement
cont asa
Assessment / Plan
Assessment / Plan
Gen: NAD, AAOx3.
Eyes: EOMI, no scleral icterus.
Neck: supple.
CV: RRR, +S1/S2, no m/r/g.
Resp: CTAB, no rales, wheezes, or rhonchi.
Abd: +BS, soft, NT, ND
Skin: No rashes.
Neuro: CN 2-12 intact, non-focal.
MSK-R hip aquacell dressing noted. No severe swelling/hematoma noted
Psych: Normal mood and affect.
MRI R hip: Right hip subacute subcapital fracture with mild impaction. Bilateral hip avascular necrosis, right greater than left.
R hip fx:
unclear etiology of RIGHT hip subacute subcapital fracture with mild impaction.
-pain control. bowel regimen. post-op DVT ppx asa 325mg daily.
-s/p left hip cannulated screw fixation on 02/[address] Bourgeois
-pain control. bowel regimen. PT/OT . PMR consulted. Hgb at 11.3
Essential hypertension
-Cont coreg for now
-PRN hydralazine.
-started procardia. BP improved.
CKD3
-Trend Cr
-Encourage po intake
Other problems:
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 Should BP drop would recommend stress dose steroids but no indication for stress dose steroids at this moment.
Choledocholithiasis s/p attempt of ERCP with contained duodenal perforation repair during the procedure
CAD: Cont ASA/BB. No statin with h/o statin induced myopathy (as per discussion with pt's )
h/o CVA in 2018: Cont ASA, no statin as above
Hyperlipidemia
Cholelithiasis
Inflammatory myopathy: cont Prednisone as above
h/o LE DVT on Eliquis prior
GERD: Cont PPI
Depression: cont Lexapro
h/o Stage 2 coccyx pressure injury
FULL scds/asa
Anticipated Discharge: Today
Subjective/Interval History
-
Date of Service: February 17, 2024
denies hip pain
worked with PT
was able to get OOB
Objective Data
-
Labs:
Laboratory Results
02/17/24
04:45
WBC 11.2 H
Hgb 11.3 L
Hct 34.3 L
Plt Count 248
Sodium 138
Potassium 4.3
Chloride 101
Carbon Dioxide 25
BUN 46 H
Creatinine 1.4 H
Glucose 114 H
Calcium 8.9
Vital Signs:
Vital Signs
Temp Pulse Resp BP Pulse Ox
98.0 F 84 16 118/80 96
02/17/24 08:00 02/17/24 08:00 02/17/24 08:00 02/17/24 08:00 02/17/24 08:00
I&O
02/16/24 02/17/24 02/18/24
06:59 06:59 06:59
Intake Total 220 / 220 720 / 720 480 / 480
Output Total 1000 / 1000 575 / 575
Balance -780 / -780 145 / 145 480 / 480
[2024-02-17 12:01] LABS: Urine Sodium 53 mmol/L (30-90)
--- NOTE | 2024-02-17 12:39 | PTCARENOTE ---
LLE with dark redness from knee to toes noted by Dr Arias. Change from this RNs assessment this and from PT evaluation earlier today. L DP weak to palpation, swelling unchanged. Pt denies pain with dorsi/plantar flexion. Dr Leon made aware.
Assessment ongoing.
[2024-02-17] MEDS: ProAmatine 5 MG PO (13:35)
[2024-02-17] MEDS: ANCEF 5 IV ×2 (13:35→22:10)
--- NOTE | 2024-02-17 14:00 | CM ---
Addendum entered by Kaylee Butler RN 02/17/24 16:23:
CM confirmed with [facility] (spoke with Dane) that they have received clinicals and will be reaching out to the patient to start service.
Addendum entered by Kaylee Butler RN 02/17/24 14:54:
[facility] has accepted the patient. [facility] fax: [phone].
Clinicals faxed to [facility] ([phone])
Original Note:
Reviewed the chart notes and spoke with the patient at the bedside. IMM signed and placed on chart. Patient requests [facility] at home at discharge. CM continues to be available to patient/family and is monitoring medical plan for needs at
discharge.
Plan: Discharge to home with [facility] and [facility]. Referrals sent via [facility] for [facility] and [facility].
[2024-02-17 15:10] VITALS: BP 155/87
[2024-02-17 15:22] VITALS: BP 155/87; PULSE 88; O2SAT 99
[2024-02-17] MEDS: LOVENOX 40 MG SC (17:13)
[2024-02-17 23:15] VITALS: BP 128/67
[2024-02-18] MEDS: TYLENOL PO ×2 (00:52→04:58)
[2024-02-18 05:21] LABS: % Basophils 0.2 % (0-2); % Eosinophils 0.6 % (0-6); % Immature Granulocytes 2.3 % (0-0.5); % Lymphocytes 15.9 % (20.5-51.1); Absolute Eosinophils 0.1 10^3/uL (0-0.7); Absolute Immature Granulocytes 0.2 10^3/uL (0-0.05); Absolute Lymphocytes 1.6 10^3/uL (1.2-3.4); Absolute Monocytes 0.8 10^3/uL (0.1-0.6); Absolute Neutrophils 7.1 10^3/uL (1.4-6.5); Hemoglobin 11.1 g/dL (13.0-18.0); Mean Corp Hgb Conc. 31.7 g/dL (33.0-37.0); Mean Corpuscular Hgb 31.8 pg (27.0-31.0); Mean Corpuscular Volume 100.3 fL (80.0-94.0); Mean Platelet Volume 9.2 fL (7.4-10.4); Nucleated Red Blood Cells % 0 % (-); Platelet Count 226 10^3/uL (130-400); Red Blood Cell Count 3.49 10^6/uL (4.70-6.10); White Blood Cell Count 9.8 10^3/uL (4.8-10.8)
[2024-02-18 05:51] LABS: Blood Urea Nitrogen 46 mg/dl (9-20); Calcium 8.9 mg/dl (8.4-10.2); Carbon Dioxide 26 mmol/L (22-30); Chloride 102 mmol/L (98-107); Estimated Creatinine Clearance 56 ml/min; Glucose 90 mg/dl (70-99); Potassium 3.9 mmol/L (3.5-5.1); Sodium 135 mmol/L (135-145); eGFR > 60.00
[2024-02-18] MEDS: ANCEF 5 IV ×2 (06:17→14:25)
[2024-02-18 07:10] VITALS: BP 159/78
[2024-02-18] MEDS: SENOKOT 17.2 MG PO (08:46)
[2024-02-18] MEDS: VITAMIN B-12 2000 MCG PO (08:46)
[2024-02-18] MEDS: DELTASONE 10 MG PO (08:46)
[2024-02-18] MEDS: THERAGRAN 1 TABLET PO (08:46)
[2024-02-18] MEDS: COLACE 100 MG PO (08:46)
[2024-02-18] MEDS: LEXAPRO 10 MG PO (08:47)
[2024-02-18] MEDS: PROTONIX 40 MG PO (08:47)
[2024-02-18] MEDS: TYLENOL 650 MG PO ×3 (08:47→15:57)
[2024-02-18] MEDS: FOLVITE 1 MG PO (08:47)
[2024-02-18] MEDS: COREG 3.125 MG PO (08:47)
[2024-02-18] MEDS: ProAmatine 5 MG PO (08:50)
--- NOTE | 2024-02-18 11:49 | CM ---
Addendum entered by Destinee Younger 02/18/24 13:59:
Patient is now agreeable to [facility], lead case manager reached out to [facility] and bed is available today.
Plan: Patient to transfer to [facility] today.
[facility] Report [phone]
Original Note:
Per physical therapy notes plan is to acute rehab v's home, referral sent to [facility] and referrals sent [facility], patient states that he wants to return to home when stable, lead case manager will follow with patient
progress.
Plan; To follow with patient progress, referral sent to [facility] visiting nurses and [facility].
--- NOTE | 2024-02-18 13:22 | W.PN.HOSP.TC ---
Addendum entered and electronically signed by Louis Leon MD 02/19/24 15:27:
ERIN on CKD 3
Addendum entered and electronically signed by Louis Leon MD 02/18/24 13:42:
Error-it should read s/p RIGHT hip cannulated screw fixation on 02/[address] Bourgeois
Original Note:
Today's Communication/Plan
-
[facility]
dc procardia
lovenox
Assessment / Plan
Assessment / Plan
Gen: NAD, AAOx3.
Eyes: EOMI, no scleral icterus.
Neck: supple.
CV: RRR, +S1/S2, no m/r/g.
Resp: CTAB, no rales, wheezes, or rhonchi.
Abd: +BS, soft, NT, ND
Skin: No rashes.
Neuro: CN 2-12 intact, non-focal.
MSK-R hip aquacell dressing noted. No severe swelling/hematoma noted, significant improvement in erythema noted. Chronic bilateral lower extremity 2+ pitting edema.
Psych: Normal mood and affect.
MRI R hip: Right hip subacute subcapital fracture with mild impaction. Bilateral hip avascular necrosis, right greater than left.
R hip fx:
unclear etiology of RIGHT hip subacute subcapital fracture with mild impaction.
-pain control. bowel regimen. post-op DVT ppx Lovenox as with DVT post left hip surgery on aspirin.
-s/p left hip cannulated screw fixation on 02/[address] Bourgeois
-pain control. bowel regimen. PT/OT . PMR consulted. Hgb at 11.1
Essential hypertension
-Cont coreg for now
-PRN hydralazine.
-With history of orthostatic hypotension. DC Procardia. Allow for mild permissive elevated blood pressure.
-Can do prn midodrine if needed prior to activity. Currently BP elevated at 159/78
CKD3
-Trend Cr
-Encourage po intake
Suspected left lower extremity cellulitis
-Significant Improvement with Ancef. Continue antibiotic
-Lower extremity venous Doppler negative for DVT
-Positive pulses.
-Per spouse at bedside patient with chronic lower extremity edema. No significant changes per spouse.
-Patient sensitive to Lasix and received in the past leading to significant urinary output and presyncope. Family patient refusing Lasix. Recommend DORA stockings.
Other problems:
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 Should BP drop would recommend stress dose steroids but no indication for stress dose steroids at this moment. Due to get CBC/CMP/Aldolase/CK/ESR/CRP
on 02/21/24. Wont be accurate in setting of recent surgery.
Choledocholithiasis s/p attempt of ERCP with contained duodenal perforation repair during the procedure
CAD: Cont ASA/BB. No statin with h/o statin induced myopathy (as per discussion with pt's )
h/o CVA in 2018: Cont ASA, no statin as above
Hyperlipidemia
Cholelithiasis
Inflammatory myopathy: cont Prednisone as above
h/o LE DVT on Eliquis prior
GERD: Cont PPI
Depression: cont Lexapro
h/o Stage 2 coccyx pressure injury
FULL scds Lovenox
PT/OT-acute rehab. Patient and spouse agreed. Case management aware. Seen by PM& R already.
d/w with spouse at bedside in details.
Anticipated Discharge: Today
Subjective/Interval History
-
Date of Service: February 18, 2024
sitting in chair
spouse at bedside
denies R hip pain
Objective Data
-
Labs:
Laboratory Results
02/18/24
04:57
WBC 9.8
Hgb 11.1 L
Hct 35.0 L
Plt Count 226
Sodium 135
Potassium 3.9
Chloride 102
Carbon Dioxide 26
BUN 46 H
Creatinine 1.2
Glucose 90
Calcium 8.9
Vital Signs:
Vital Signs
Temp Pulse Resp BP Pulse Ox
97.8 F 73 16 159/78 98
02/18/24 07:10 02/18/24 08:50 02/18/24 07:10 02/18/24 08:50 02/18/24 07:10
I&O
02/17/24 02/18/24 02/19/24
06:59 06:59 06:59
Intake Total 720 / 720 2024 / 2024
Output Total 575 / 575 1050 / 1050
Balance 145 / 145 975 / 975
Data Reviewed
-
Total Time Spent with Patient (in minutes): 54
--- NOTE | 2024-02-18 13:43 | W.DCSUMMARY ---
Discharge Summary
Discharge Data
Date of Admission: 02/13/24
Date of Discharge: 02/18/24
-
Pending Results: No
Hospital Course
78-year-old male with significant past medical history of hypertension with orthostatic hypotension, CKD, chronic immunosuppressant due to steroids, CAD, history of stroke, hyperlipidemia, gallstones, history of DVT, GERD, depression who is
presenting from orthopedic office where abnormal finding of right hip subacute subcapital fracture with mild impaction which was found on MRI of the hip. Patient was eval by orthopedic and patient underwent right hip cannulated screw fixation.
Postop patient did well. Patient with erythema of left lower extremity. Patient with positive pulses. Lower extremity venous ultrasound was negative for DVT. Patient with significant improvement IV antibiotics which was transitioned to p.o. on
discharge. Patient also with supine hypertension was started on Procardia initially. However patient with orthostatic hypotension Procardia was discontinued. Patient with history of DVT while on full dose aspirin in the past and thus patient was
transition off aspirin and to be continued on Lovenox for DVT prophylaxis. Patient with chronic bilateral lower extremity pitting edema recommend to patient and spouse to consider being started on diuretics if not much improvement with stockings.
Patient hemoglobin was trended and did not require blood transfusion. Patient was eval by physical and Occupational Therapy recommended acute rehab. Patient was evaluated by physiatry and will be discharged to [facility].
Discharge Plan
-
Patient Disposition: Acute Rehab Facility
Discharge Diagnosis/Procedures: RIGHT hip subacute subcapital fracture with mild impaction status post right hip cannulated screw on 02/[address] Bourgeois
Left leg cellulitis
Mild hyperkalemia
Condition: Fair
Diet: As tolerated
Activity: With assistance and As tolerated
Driving Restrictions: No driving
Activity Restrictions/Additional Instructions:
Skin clip removal 2 weeks postop
Follow-up orthopedics 4 weeks for x-ray
Referrals:
Myriam Bourgeois I., DO [Active] - in one month (call to make appt. )
Geneva James MD [Family Provider] - in less than 1 week
Prescriptions:
New
enoxaparin 40 mg/0.4 mL Syringe
40 mg SC QPM 27 Days Qty: 10.8 0RF
cephalexin 500 mg capsule
500 mg PO Q6H 6 Days Qty: 24 0RF
Rx Instructions:
FOR 6 DAYS
Continued
prednisone 20 mg tablet
10 mg PO DAILY
pantoprazole 40 mg Tablet,Delayed Release (Dr/Ec)
40 mg PO BID Qty: 60 0RF
therapeutic multivitamin Tablet
1 tab PO DAILY
aspirin 81 mg Tablet,Delayed Release (Dr/Ec)
81 mg PO DAILY
acetaminophen 500 mg Tablet
1,000 mg PO BID
escitalopram oxalate 20 mg Tablet
20 mg PO DAILY
carvedilol 3.125 mg Tablet
3.125 mg PO BID 30 Days Qty: 60 0RF
Rx Instructions:
for 30 days
Discharge Orders:
Discharge Patient (As Directed); Ordered 02/18/24
Ordered By: Louis Leon
Discharge Date and Time
Discharge Date/Time: 02/18/24 17:40
Print Language: GERMAN
[2024-02-18 15:40] VITALS: BP 139/84
--- NOTE | 2024-02-18 16:46 | PN.CDI ---
CDI
- -
CDI:
Physician Documentation Request
Admit Date: 02/13/24 13:04
Dear Doctor Carolyn,
Patient admitted for right hip fracture:
Most recent creatinine:
02/16/24 02/17/24 02/18/24
05:18 04:45 04:57
Creatinine 1.1 1.4 H 1.2
Could you provide a diagnosis that supports the above lab abnormalities and additional evaluation/ monitoring:
ERIN
Abnormal lab value clinically insignificant
Other
Criteria for ERIN*
1 Increase in serum creatinine by > or = to 0.3 mg/dL (> or = to 26.5 micromol/L) within 48 hours, OR
2 Increase in serum creatinine to > or = to 1.5 times baseline, which is known or presumed to have occurred within 7 days, OR
3 Urine volume < 0.5 nL/kg/hour for six hours
Use of terms such as suspected, likely, concern for, or probable (associated with a specific diagnosis that is being evaluated, monitored, or treated as if it exists) are acceptable and can be coded in the inpatient setting, when documented at the
time of discharge.
Thank you,
Yecenia Barron RN, BSN
CDI Specialist
tiger text
Please use your independent medical judgment in providing your response.
== END 2024-02-18 17:40 | DRG 481 ==
LOC: 2 SOUTH 13:04
PROVIDERS: Orthopaedic Surgery; ADMITTING PHYSICIAN Internal Medicine; ATTENDING PHYSICIAN Hospitalist; CONSULT PHYSICIAN Physical Medicine & Rehabilitation; CONSULT PHYSICIAN Specialist; EMERGENCY PHYSICIAN Emergency Medicine; FAMILY PHYSICIAN Student in an Organized Health Care Education/Training Program
PROC: 0QSB04Z Reposition Right Lower Femur with Internal Fixation Device, Open Approach (ICD-10-PCS; 2024-02-15)
DX: S72.011A Unspecified intracapsular fracture of right femur, initial encounter for closed fracture (principal); D84.9 Immunodeficiency, unspecified; L03.116 Cellulitis of left lower limb; M87.9 Osteonecrosis, unspecified; N17.9 Acute kidney failure, unspecified; N18.31 Chronic kidney disease, stage 3a; I12.9 Hypertensive chronic kidney disease with stage 1 through stage 4 chronic kidney disease, or unspecified chronic kidney disease; E87.5 Hyperkalemia
CPT/HCPCS: 73502; 73721; 76000; 80048; 82570; 84300; 85025; 86850; 86900; 86901; 93971; 97110; 97116; 97163; 97166; 97530; 99285; C1713; C1769

== ENCOUNTER → 2024-03-29 12:46 | Outpatient (REF) | payer MEDICARE, OTHER, SELFPAY ==
[2024-03-29 14:40] LABS: % Basophils 0.3 % (0-2); % Eosinophils 0.5 % (0-6); % Immature Granulocytes 1.9 % (0-0.5); % Lymphocytes 7.7 % (20.5-51.1); % Monocytes 6.5 % (1.7-9.3); % Neutrophils 83.1 % (42.2-75.2); Absolute Eosinophils 0.1 10^3/uL (0-0.7); Absolute Immature Granulocytes 0.2 10^3/uL (0-0.05); Absolute Lymphocytes 0.9 10^3/uL (1.2-3.4); Absolute Monocytes 0.8 10^3/uL (0.1-0.6); Absolute Neutrophils 9.6 10^3/uL (1.4-6.5); Hematocrit 35.7 % (39.0-52.0); Hemoglobin 11.3 g/dL (13.0-18.0); Mean Corp Hgb Conc. 31.7 g/dL (33.0-37.0); Mean Corpuscular Hgb 31.4 pg (27.0-31.0); Mean Corpuscular Volume 99.2 fL (80.0-94.0); Mean Platelet Volume 9.4 fL (7.4-10.4); Nucleated Red Blood Cells % 0 % (-); Platelet Count 368 10^3/uL (130-400); Red Cell Dist. Width 14.5 % (11.5-14.5); White Blood Cell Count 11.5 10^3/uL (4.8-10.8)
[2024-03-29 14:50] LABS: INR 1.32; PT 16.9 Sec (11.4-14.6)
[2024-03-29 14:51] LABS: APTT 43.7 Sec (23.4-35.0)
[2024-03-29 15:09] LABS: ALT (SGPT) 14 U/L (0-50); AST (SGOT) 22 U/L (17-59); Albumin 3.6 g/dl (3.5-5.0); Alkaline Phosphatase 126 U/L (38-126); Blood Urea Nitrogen 24 mg/dl (9-20); Calcium 9.3 mg/dl (8.4-10.2); Carbon Dioxide 29 mmol/L (22-30); Chloride 97 mmol/L (98-107); Glucose 97 mg/dl (70-99); Potassium 4.2 mmol/L (3.5-5.1); Sodium 134 mmol/L (135-145); Total Bilirubin 0.5 mg/dl (0.2-1.3); Total Protein 6.5 g/dl (6.3-8.2); eGFR 56.23
== END ==
LOC: RAD 12:46
PROVIDERS: ATTENDING PHYSICIAN Student in an Organized Health Care Education/Training Program; REFERRING PHYSICIAN Orthopaedic Surgery
DX: Z86.718 Personal history of other venous thrombosis and embolism (principal); Z01.818 Encounter for other preprocedural examination; Z86.73 Personal history of transient ischemic attack (TIA), and cerebral infarction without residual deficits; R60.9 Edema, unspecified
CPT/HCPCS: 80053; 85025; 85610; 85730; 86850; 86900; 86901; 93005; 93970

== ENCOUNTER → 2024-03-30 13:04 | Outpatient (REF) | payer MEDICARE, OTHER, SELFPAY ==
[2024-03-30 13:32] VITALS: BP 173/79; BP_SYST 78
[2024-03-30 14:40] VITALS: BP 176/79; BP_SYST 72
== END ==
LOC: RADI 13:04
PROVIDERS: ATTENDING PHYSICIAN Student in an Organized Health Care Education/Training Program
DX: I82.401 Acute embolism and thrombosis of unspecified deep veins of right lower extremity (principal)
CPT/HCPCS: C1880; 37191

== ENCOUNTER 2024-04-01 17:39 | Inpatient (IN) | payer MEDICARE, OTHER, SELFPAY ==
[2024-04-01 10:22] VITALS: BP 144/59
--- NOTE | 2024-04-01 11:47 | ED.MUSCINJ ---
HPI-Injury
General
Chief Complaint: Musculo-Skeletal Complaint
Source: patient
Time Seen by Provider: 04/01/24 11:36
History of Present Illness-Injury
Initial Injury comments:
78-year-old male presents complaining of increased right hip pain. He was here at the beginning of February found to have a subcapital femur fracture on the right side and had 3 cannulated screws placed. He was to be partial weightbearing. He has
had increasing pain since then and has been following with orthopedics. They found that the screws have loosened. He almost fell twice today secondary to his pain. He had been on Eliquis but stopped in preparation for hemiarthroplasty to be
performed this Wednesday. He also has a filter placed. He denies chest pain or shortness of breath. He has chronic edema to his legs. who lives with him states that he is not able to ambulate secondary to the pain and she cannot manage his
care at this time
Past History
Past History
ED Past Medical History: CAD, CVA (2018), GERD, HTN, Hypercholesterolemia, Renal failure (CKD 3) and Other (Vitamin B12, vitamin D, adenomatous polyp, cholelithiasis)
ED Past Surgical History: Orthopedic (left hip ORIF 06/2023) and Other (Hernia, cataract surgery, bilateral cataract surgery, left leg stent)
Social History
Tobacco: Non-smoker
Alcohol: None
Drug: None
Personal:
Living: with family
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
Family History
Family History: Early CAD
Phy Exam
Physical Exam
Physical Exam:
General: Well-appearing male no acute respiratory distress
HEENT: Normocephalic atraumatic
Heart: Regular rate and rhythm no murmur
Lungs: Clear no wheeze
Musculoskeletal exam: Patient is slightly tender to the lateral aspect of the right hip without deformity to the leg.
Extremities: Pitting edema bilateral lower extremities
Skin is warm healed surgical incisions over the lateral aspect of the right hip without erythema or
Injury Course
Orders/Labs/Results
Orders:
Orders
04/01/24 11:12
Acetaminophen [Tylenol] 650 mg PO NOW STA
04/01/24 11:45
CR Hip - RT w/wo Pel 2-3 Vw* Urgent
Comment:
Reason For Exam: pain
Include a pelvis x-ray?: Yes
04/01/24 13:05
Complete Blood Count/With Diff Urgent
Comprehensive Metabolic Panel Urgent
PTT Urgent
Prothrombin Time Urgent
Abnormal Lab Results
04/01/24
13:05
RBC 3.20 L 10^6/uL
(4.70-6.10)
Hgb 10.2 L g/dL
(13.0-18.0)
Hct 31.4 L %
(39.0-52.0)
MCV 98.1 H fL
(80.0-94.0)
MCH 31.9 H pg
(27.0-31.0)
MCHC 32.5 L g/dL
(33.0-37.0)
Abs Immat Gran (auto) 0.1 H 10^3/uL
(0-0.05)
Absolute Neuts (auto) 8.6 H 10^3/uL
(1.4-6.5)
Absolute Lymphs (auto) 1.0 L 10^3/uL
(1.2-3.4)
Immature Gran % 1.0 H %
(0-0.5)
Neutrophils % 82.3 H %
(42.2-75.2)
Lymphocytes % 9.9 L %
(20.5-51.1)
APTT 37.1 H Sec
(23.4-35.0)
BUN 25 H mg/dl
(9-20)
Glucose 103 H mg/dl
(70-99)
Total Protein 5.4 L g/dl
(6.3-8.2)
Albumin 2.9 L g/dl
(3.5-5.0)
04/01/24 13:05
04/01/24 13:05
MDM/Problems Addressed
Differential Diagnosis Includes:
Ongoing and increasing right hip pain. Recent known subcapital femur fracture. Family describes failed cannulated screw fixation. He was due for an elective procedure this coming Wednesday for hemiarthroplasty however the pain is increasing and he
is now no longer able to ambulate safely throughout the home. Repeat x-rays pending will check labs. Tylenol ordered for pain.
*Critical Care Note
Total Time (30-74mins, 75-104mins- exclusive of procedures): Not Applicable
Update Note
Update Note:
X-rays demonstrate 3 cannulated screws in the proximal femur with further displacement of the fracture site. Labs reviewed. Discussed these findings with the patient and his . Patient unable to ambulate safely due to his pain and dysfunction
of the right leg. He was due for hemiarthroplasty in 2 days electively but is unable to be safe at home. Will keep in hospital. Hospitalist and orthopedics made
ED Attending Note
-
Portions of this chart may have been created with voice recognition software.� Occasional wrong word or��sound alike� substitutions may have occurred due to the inherent limitations of voice recognition software.
Discharge Plan
Departure
Patient Disposition: Admit
Date of Disposition: 04/01/24
Time of Disposition: 13:51
Presentation/result/management discussed w/ accepting MD/DO: Hospitalist
Patient with high blood pressure during this ER visit?: No
Discharge Problem:
Hip fracture
Prescriptions:
No Action
prednisone 20 mg tablet
20 mg PO DAILY
Rx Instructions:
20mg Wednesday04/02/24, Wednesday04/03/24 and Wednesday04/04/24
aspirin 81 mg Tablet,Delayed Release (Dr/Ec)
81 mg PO DAILY
prednisone 5 mg Tablet
5 mg PO DAILY
Rx Instructions:
5mg daily starting Wednesday04/05/24 continuing daily as directed by PCP
carvedilol 3.125 mg Tablet
3.125 mg PO BID
Vitamin D3 125 mcg solution
125 mcg PO DAILY
acetaminophen 325 mg Tablet
650 mg PO Q6HPRN PRN (Reason: mild pain or fever) 15 Days Qty: 50 0RF
Eliquis 5 mg Tablet
5 mg PO BID 30 Days Qty: 60 0RF
therapeutic multivitamin Tablet
1 tab PO DAILY Qty: 0 0RF
pantoprazole 40 mg Tablet,Delayed Release (Dr/Ec)
40 mg PO BID Qty: 60 0RF
escitalopram oxalate 20 mg Tablet
20 mg PO DAILY Qty: 0 0RF
Referrals:
Geneva James MD [Family Provider] -
Interventions
Interventions:
*Risk Screen - Suicide Last Done: 04/01/24 10:22
*General Assessment Last Done: 04/01/24 10:22
*Neglect/Abuse Screening Last Done: 04/01/24 10:22
*ED COVID-19 Vaccine History Last Done: 04/01/24 10:22
Discharge Date and Time
Print Language: GAMBIAN
[2024-04-01] MEDS: TYLENOL 650 MG PO (12:35)
[2024-04-01 13:08] VITALS: BP 159/69
[2024-04-01 13:23] LABS: % Basophils 0.4 % (0-2); % Eosinophils 0.5 % (0-6); % Lymphocytes 9.9 % (20.5-51.1); % Monocytes 5.9 % (1.7-9.3); % Neutrophils 82.3 % (42.2-75.2); Absolute Eosinophils 0.1 10^3/uL (0-0.7); Absolute Immature Granulocytes 0.1 10^3/uL (0-0.05); Absolute Monocytes 0.6 10^3/uL (0.1-0.6); Absolute Neutrophils 8.6 10^3/uL (1.4-6.5); Hematocrit 31.4 % (39.0-52.0); Hemoglobin 10.2 g/dL (13.0-18.0); Mean Corp Hgb Conc. 32.5 g/dL (33.0-37.0); Mean Corpuscular Hgb 31.9 pg (27.0-31.0); Mean Corpuscular Volume 98.1 fL (80.0-94.0); Mean Platelet Volume 9.1 fL (7.4-10.4); Nucleated Red Blood Cells % 0 % (-); Platelet Count 318 10^3/uL (130-400); Red Cell Dist. Width 14.5 % (11.5-14.5); White Blood Cell Count 10.4 10^3/uL (4.8-10.8)
[2024-04-01 13:32] LABS: INR 1.11; PT 14.6 Sec (11.4-14.6)
[2024-04-01 13:33] LABS: APTT 37.1 Sec (23.4-35.0)
[2024-04-01 13:37] LABS: ALT (SGPT) 11 U/L (0-50); AST (SGOT) 19 U/L (17-59); Albumin 2.9 g/dl (3.5-5.0); Alkaline Phosphatase 107 U/L (38-126); Blood Urea Nitrogen 25 mg/dl (9-20); Calcium 8.7 mg/dl (8.4-10.2); Carbon Dioxide 30 mmol/L (22-30); Chloride 101 mmol/L (98-107); Glucose 103 mg/dl (70-99); Potassium 4.9 mmol/L (3.5-5.1); Sodium 136 mmol/L (135-145); Total Bilirubin 0.5 mg/dl (0.2-1.3); Total Protein 5.4 g/dl (6.3-8.2); eGFR 56.23
--- NOTE | 2024-04-01 17:04 | HPS.HSE ---
Family Physician
-
Family Physician: Geneva James MD
Chief Complaint
-
Pain on hip
History of Present Illness
78-year-old man complains of increased right hip pain. In the beginning of February he was found to have a subcapital femur fracture on the right side and had 3 cannulated screws were placed. He was to be partial weightbearing. He has had
increasing pain since then and has been following with orthopedics. They found that the screws have loosened. He almost fell twice today secondary to his pain. He had been on Eliquis but stopped in preparation for hemiarthroplasty to be performed
this Apr 03. He also has a filter placed. He denies chest pain or shortness of breath. He has chronic edema to his legs. who lives with him states that he is not able to ambulate secondary to the pain and she cannot manage his care
at this time. Ortho made aware of his case by ED. Hip Xr shows:
There is impacted healing but incompletely healed subcapital fracture of the right femur traversed by 3 compression screws.
Screws have migrated to the superolateral aspect of the femoral head in the interval since the 02/15/2024 examination.
Medical History
Past Medical History
Past Medical History: Reports Other
Additional Past Medical History:
CAD,
CVA (2018),
GERD,
essential HTN,
Hypercholesterolemia,
Renal failure (CKD 3)
adenomatous polyp,
cholelithiasis
left hip ORIF 06/2023
Hernia,
cataract surgery,
bilateral cataract surgery,
left leg stent
May-Thurner syndrome
Lymphedema of both lower extremities
Cerebrovascular accident (CVA) due to embolism of left anterior cerebral artery
Left carotid artery occlusion
Carotid stenosis, right
Vitamin D deficiency
B12 deficiency
Abnormal nuclear stress test
Aortic valve sclerosis
Atherosclerosis of abdominal aorta
History of adenomatous polyp of colon
Elevated liver enzymes
Lumbago with sciatica, right side
Celiac disease
Calculus of gallbladder without cholecystitis without obstruction
Past Surgical History: Reports Other
Additional Past Surgical History:
See above
Social History
Tobacco: Non-smoker
Alcohol: None
Drug: None
Family History
Family History: Not pertinent
Allergies / Home Medications
Allergies reflects when Allergies were last updated in [facility].
Home Medications with original date entered in [facility]
Allergy/Medication List:
Allergies
Allergy/AdvReac Type Severity Reaction Status Date / Time
gluten Allergy Celiac Verified 04/01/24 10:25
disease
Home Medications
prednisone 20 mg tablet 20 mg PO DAILY MYOPATHY 10/20/23
aspirin 81 mg tablet,delayed release 81 mg PO DAILY 02/13/24
acetaminophen 325 mg tablet 650 mg (2 x 325 mg) PO Q6HPRN PRN mild pain or fever 15 days #50 tabs 02/28/24
escitalopram oxalate 20 mg tablet 20 mg PO DAILY Mental Health/Anxiety #0 tabs 02/28/24
pantoprazole 40 mg tablet,delayed release 40 mg PO BID Gastrointestinal issue #60 tabs 02/28/24
therapeutic multivitamin 1 tab PO DAILY supplement #0 tabs 02/28/24
carvedilol 3.125 mg tablet 3.125 mg PO BID 03/31/24
prednisone 5 mg tablet 5 mg PO DAILY 03/31/24
Review of Systems
-
History Source: Patient
A 12 point ROS was completed and negative except as noted: Yes
Physical Exam
Vital Signs
Vital Signs
Temp Pulse Resp BP Pulse Ox
97.4 F 71 16 159/69 98
04/01/24 10:22 04/01/24 10:22 04/01/24 10:22 04/01/24 13:08 04/01/24 13:08
Physical Exam
General: Well Developed, Well Nourished, No Apparent Distress, Comfortable and Conversant
HEENT: NormoCephalic, Nose Appears Normal and Ears Appear Normal
Respiratory: Clear
Cardiac: S1/S2 and Regular Rhythm
GI: Soft, Non Tender and Non Distended
Musculoskeletal: No Clubbing, No Cyanosis, Edema, Left Lower Extremity and Edema, Right Lower Extremity
Skin: Warm and Dry; No Rash or Jaundice
Neuro: Awake, Alert and Oriented
Hematologic/Lymphatic: Lymphadenopathy
Psych: Calm
Laboratory Results
-
04/01/24 13:05
04/01/24 13:05
Laboratory Results
PT 14.6 Sec (11.4-14.6) 04/01/24 13:05
INR 1.11 04/01/24 13:05
APTT 37.1 Sec (23.4-35.0) H 04/01/24 13:05
APTT Cancelled 04/01/24 13:05
Total Bilirubin 0.5 mg/dl (0.2-1.3) 04/01/24 13:05
AST 19 U/L (17-59) 04/01/24 13:05
ALT 11 U/L (0-50) 04/01/24 13:05
Alkaline Phosphatase 107 U/L (38-126) 04/01/24 13:05
Data Reviewed
-
Lab Data: Labs Reviewed by me
Impression/Plan
-
IMPRESSION:
78 man with problem with hardware on hip. Ortho consulted and will have procedure on Wednesday.
PLAN:
1. Problems with hip hardware
Pain control
Ortho consult
2. On chronic steroids, 25 mg dose - concern for subsequent acquired adrenal insufficiency
Stress dose should be ordered prior to surgery
For now, continue daily dose
3. Complex PMH with 28 medical problems
Continue home meds for tomorrow
NPO after MN on wednesday
Resume after surgery
Full code
VCD fro DVTp
--- NOTE | 2024-04-01 17:46 | CON.ORTHO ---
Consultation
-
Date/Time Consultation Requested: 04/01/2024 @ 17:15
Date/Time Consultation Performed: 04/01/2024 @ 17:16
Requesting Provider: Aidee Sosa NP
Performing Provider: Jeff Flores PA-C for Dr. Myriam Bourgeois
Reason for Consultation: Right Hip Pain
Consultation - Orthopedics
History
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
procedure, CAD, h/o CVA in 2018, essential hypertension, hyperlipidemia, CKD 3A, cholelithiasis, inflammatory myopathy, h/o LLE and RLE DVT (diagnosed on 02/25/2024) on Eliquis 5mg BID (last dose per patient's 03/30/2024; recently had
IVC filter placed ), GERD, depression, and stage II coccyx pressure injury, who presents to [facility] Emergency Department with worsening right hip pain. Patient was admitted to [facility] this past February after
outpatient MRI revealed a right hip subacute subcapital fracture with mild impaction. He underwent right hip percutaneous pinning on 02/15/[address] Bourgeois. Since his operation, he has been followed by our practice as an outpatient for serial
radiographs, with recent radiographs revealing hardware loosening/instability at the fracture site. Patient is scheduled for right hip removal of hardware with conversion to right hip hemiarthroplasty this upcoming 04/03/2024 under the
direction of Dr. Bourgeois. He presented to the ED today due to increasing pain and no longer able to ambulate safely throughout his home. He denies any recent injuries or traumatic events. Orthopedic surgery has been consulted for further
management regarding his upcoming operation scheduled for Wednesday. He is currently lying comfortably in ED bed 17 in no acute distress.
PAST MEDICAL HISTORY: Chronic immunosuppression due to steroids for inflammatory myopathy, choledocholithiasis s/p attempt of ERCP with contained duodenal perforation repair during the procedure, CAD, h/o CVA in 2018, essential hypertension,
hyperlipidemia, CKD 3A, cholelithiasis, inflammatory myopathy, h/o LLE and RLE DVT on Eliquis, GERD, depression, and stage II coccyx pressure injury.
PAST SURGICAL HISTORY: Left Hip Gamma Nail 07/03/[address] Bourgeois, Right Hip CRPP 02/15/[address] Bourgeois.
SOCIAL HISTORY: Denies tobacco use. Denies alcohol use. Denies illicit drug use. Lives at home with . Ambulates with assistance of a walker/cane.
FAMILY HISTORY: Non-contributory.
REVIEW OF SYSTEMS: 12-point review of systems obtained and negative except those mentioned in the HPI.
Allergies / Home Medications
Allergy/AdvReac Type Severity Reaction Status Date / Time
gluten Allergy Celiac Verified 04/01/24 10:25
disease
�Medication �Instructions �Recorded
prednisone 20 mg tablet 20 mg PO DAILY MYOPATHY 10/20/23
aspirin 81 mg tablet,delayed 81 mg PO DAILY 02/13/24
release
acetaminophen 325 mg tablet 650 mg (2 x 325 mg) PO Q6HPRN PRN 02/28/24
mild pain or fever 15 days #50 tabs
escitalopram oxalate 20 mg tablet 20 mg PO DAILY Mental 02/28/24
Health/Anxiety #0 tabs
pantoprazole 40 mg tablet,delayed 40 mg PO BID Gastrointestinal 02/28/24
release issue #60 tabs
therapeutic multivitamin 1 tab PO DAILY supplement #0 tabs 02/28/24
carvedilol 3.125 mg tablet 3.125 mg PO BID 03/31/24
prednisone 5 mg tablet 5 mg PO DAILY 03/31/24
Vital Signs / Lab Results
Temp Pulse Resp BP Pulse Ox
97.4 F 71 16 159/69 98
04/01/24 10:22 04/01/24 10:22 04/01/24 10:22 04/01/24 13:08 04/01/24 13:08
04/01/24 13:05
04/01/24 13:05
RADIOGRAPHIC FINDINGS:
CR Hip - RT w/wo Pel 2-3 Vw* was obtained at [facility] on 04/01/2024 and was made available for my review today. Findings: There is healing but incompletely healed subcapital fracture of the right femur transversed by 3 compression screws
which have migrated to the superolateral aspect of the femoral head the interval since the 02/15/2024 examination. There is compression screw in the proximal left femur and satisfactory position. There is a left iliac stent. Impression: There is
impacted healing but incompletely healed subcapital fracture of the right femur transversed by 3 compression screws which have migrated to the superolateral aspect of the femoral head in the interval since the 02/15/2024 examination.
PHYSICAL EXAM:
General: Well-developed, well-nourished, and in no apparent distress.
HEENT: NCAT, sclerae anicteric, normal conversational hearing.
Heart: No JVD.
Lungs: Normal work of breathing on room air.
MSK: Focused examination of the right lower extremity does not reveal any obvious deformity in comparison to the contralateral side. Well healed prior surgical incision. There is significant pitting edema noted about his bilateral lower extremities,
right appearing greater than left. Hip ROM deferred. (+) Tenderness to palpation of the right hip. Able to plantarflex and dorsiflex right ankle. Wiggle all toes. Calf is nontender to palpation. NVI distally.
Assessment / Plan
ASSESSMENT: 78-year-old male with RIGHT hip hardware failure/loosening and malunion of femoral neck fracture.
PLAN: The patient is scheduled for RIGHT hip removal of hardware with conversion to RIGHT hip hemiarthroplasty 04/03/2024 under the direction of Dr. Bourgeois. The risks, benefits, potential complications, and expected post-operative course
were reviewed. Surgical and blood consents have been previously obtained. Ancef, iodine irrigation, TXA irrigation on-call to OR. Type and screen has been requested. Hemoglobin on admission 10.2. Patient will be NPO pMN 04/02/2024. Remain NWB to
RLE. Right hip marked as the correct surgical extremity. Continue with pain medications as needed per primary team. Appreciate primary teams assistance with management of this patient. Continue to hold Eliquis for surgery Wednesday. Patient's primary
care physician (Dr. Catrnia James) has requested Prednisone 20 mg daily 04/02/2024, 04/03/2024 and 04/04/2024 for stress dose steroids. On 04/05/2024, he will resume normal dose of Prednisone 5 mg daily continuing
thereafter as directed by PCP. These orders have been placed as well. Orthopedic surgery will continue to follow.
[2024-04-01 18:45] VITALS: BP 168/77
[2024-04-01] MEDS: PROTONIX 40 MG PO (20:52)
[2024-04-01] MEDS: COREG 3.125 MG PO (20:52)
[2024-04-01 23:00] VITALS: BP 125/66
[2024-04-02] MEDS: TYLENOL 650 MG PO (01:38)
[2024-04-02 07:04] LABS: Blood Urea Nitrogen 23 mg/dl (9-20); Calcium 8.3 mg/dl (8.4-10.2); Carbon Dioxide 31 mmol/L (22-30); Chloride 101 mmol/L (98-107); Glucose 80 mg/dl (70-99); Potassium 4.3 mmol/L (3.5-5.1); Sodium 138 mmol/L (135-145); eGFR > 60.00
[2024-04-02 07:11] LABS: Hematocrit 30.5 % (39.0-52.0); Hemoglobin 9.6 g/dL (13.0-18.0); Mean Corp Hgb Conc. 31.5 g/dL (33.0-37.0); Mean Corpuscular Hgb 31.2 pg (27.0-31.0); Mean Platelet Volume 9.5 fL (7.4-10.4); Platelet Count 328 10^3/uL (130-400); Red Blood Cell Count 3.08 10^6/uL (4.70-6.10); Red Cell Dist. Width 14.6 % (11.5-14.5); White Blood Cell Count 8.7 10^3/uL (4.8-10.8)
[2024-04-02 07:40] VITALS: BP 154/76
--- NOTE | 2024-04-02 08:29 | W.PN.UPDATE ---
Update Note
Progress Note Update
Patient seen and evaluated by Orthopedic surgery this morning. He is lying in bed comfortably in no acute distress. Plan for OR tomorrow 04/03/2024 for RIGHT hip removal of hardware/screws with conversion to RIGHT hip hemiarthroplasty under the
direction of Dr. Bourgeois. Surgical consents have been previously obtained. Hemoglobin yesterday 10.2. Hemoglobin today 9.6. Discussed with Dr. Bourgeois, and will have 1 unit PRBC on-call to OR tomorrow. Order has been placed. Blood consent
has been obtained. Ancef, iodine irrigation, and TXA irrigation on-call to OR. Type and screen completed. Patient to remain NWB to RLE until post-op. NPO pMN 04/02/2024. Right hip marked as the correct surgical extremity. Continue with pain
medications as needed per primary team. Appreciate primary team's assistance with management of this patient. Continue to hold Eliquis for surgery tomorrow. Prednisone 20 mg daily 04/02/2024, 04/03/2024 and 04/04/2024 for
stress dose steroids. On 04/05/2024, he will resume normal dose of Prednisone 5 mg daily continuing thereafter as directed by PCP. Orthopedic surgery will continue to follow.
[2024-04-02] MEDS: PROTONIX 40 MG PO ×2 (10:10→20:26)
[2024-04-02] MEDS: ASPIR LOW (ENTERIC COATED) 81 MG PO (10:10)
[2024-04-02] MEDS: THERAGRAN 1 TABLET PO (10:10)
[2024-04-02] MEDS: DELTASONE 20 MG PO (10:11)
[2024-04-02] MEDS: LEXAPRO 20 MG PO (10:11)
[2024-04-02] MEDS: COREG 3.125 MG PO ×2 (10:11→20:25)
--- NOTE | 2024-04-02 11:18 | CM ---
Patient seen at bedside. Patient lives with him in a 2 story home but patient states that he has been living on the first floor. Patient has been to [facility] and has had [facility] at home. Patient is for surgery tomorrow per chart
review. Patient stated that his PCP is Dr. uBrr and he uses the [facility]. Patient plan is pending surgery and functional assessments. CM will continue to follow for discharge planning needs.
Plan; SNF vs Rehab.
[2024-04-02] MEDS: MIRALAX 17 GRAMS PO (12:52)
--- NOTE | 2024-04-02 13:41 | W.PN.HOSP.TC ---
Today's Communication/Plan
-
OR in am
Assessment / Plan
Assessment / Plan
IMPRESSION:
78 man with problem with hardware on hip. Ortho consulted and will have procedure on Wednesday.
PLAN:
Right hip pain secondary to loose hardware
Plan for right SAHIL tomorrow noted. It was planned for tomorrow as an outpatient but the patient came in because of worsening pain. Patient was cleared for surgery by PCP. EKG on 03/29 shows normal sinus rhythm with LVH. No acute ST-T changes. He
had an echo 09/2023 which showed normal EF and no significant valvular abnormality. Aortic root mildly dilated at 3.9 cm. Patient without angina or chest pain patient without any clinical symptoms signs of heart failure. Proceed with surgery as
planned before.
Essential hypertension-continue with Coreg
Mild chronic microcytic anemia-continue to follow
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 Hemodynamically stable.
History of DVT on Eliquis which is on hold. Patient had an IVC filter prior to hospitalization this week.
Full code
Full code
VCD fro DVTp
Anticipated Discharge: > 48 hours
Subjective/Interval History
-
Date of Service: April 02, 2024
Apart from a right hip pain voices no specific complaints.
Feels a bit constipated.
Denies any chest pain or shortness of breath. No palpitation.
No nausea vomiting.
No fever chills.
Denies any history of VT. He does have peripheral arterial disease for which he had a stent recently. He also was on Eliquis for bilateral DVT and it was discontinued in preparation of orthopedic surgery so this week he had an IVC filter placed.
Objective Data
-
Labs:
Laboratory Results
04/02/24
04:33
WBC 8.7
Hgb 9.6 L
Hct 30.5 L
Plt Count 328
Sodium 138
Potassium 4.3
Chloride 101
Carbon Dioxide 31 H
BUN 23 H
Creatinine 1.2
Glucose 80
Calcium 8.3 L
Vital Signs:
Vital Signs
Temp Pulse Resp BP Pulse Ox
98.3 F 82 16 154/76 97
04/02/24 07:40 04/02/24 07:40 04/02/24 07:40 04/02/24 07:40 04/02/24 07:40
I&O
04/01/24 04/02/24 04/03/24
06:59 06:59 06:59
Intake Total 480 / 480
Output Total 1000 / 1000
Balance -520 / -520
Review of Systems
-
EENT: Denies Sore Throat
Respiratory: Denies Cough
Genitourinary: Denies Dysuria
Neuro: Denies Dizzy
Physical Exam
-
General: No Apparent Distress
HEENT: Moist Mucous Membranes
Respiratory: Clear to Auscultation and Non Labored Respirations; Negative Accessory Resp Muscle Use
Cardiac: Regular Rhythm and S1/S2; Negative Tachycardic
GI: Soft, Nontender, Nondistended and Normal Bowel Sounds
Musculoskeletal: Edema, Right Lower Extrem and Edema, Left Lower Extrem (He states he has bilateral leg chronic lymphedema and no obvious reason were found.)
Neuro: AO x 3
Data Reviewed
-
Labs: Labs Reviewed by me
[2024-04-02 15:27] VITALS: BP 132/80
[2024-04-02 23:08] VITALS: BP 137/68
[2024-04-03] VITALS (13 sets, daily range): BP systolic 106–171; BP diastolic 58–87
[2024-04-03 07:26] LABS: Hematocrit 31.6 % (39.0-52.0); Hemoglobin 10.3 g/dL (13.0-18.0); Mean Corp Hgb Conc. 32.6 g/dL (33.0-37.0); Mean Corpuscular Hgb 31.8 pg (27.0-31.0); Mean Corpuscular Volume 97.5 fL (80.0-94.0); Mean Platelet Volume 9.4 fL (7.4-10.4); Platelet Count 329 10^3/uL (130-400); Red Blood Cell Count 3.24 10^6/uL (4.70-6.10); Red Cell Dist. Width 14.5 % (11.5-14.5); White Blood Cell Count 10.1 10^3/uL (4.8-10.8)
[2024-04-03 07:52] LABS: Blood Urea Nitrogen 25 mg/dl (9-20); Calcium 8.8 mg/dl (8.4-10.2); Carbon Dioxide 28 mmol/L (22-30); Chloride 102 mmol/L (98-107); Glucose 97 mg/dl (70-99); Potassium 4.7 mmol/L (3.5-5.1); Sodium 137 mmol/L (135-145); eGFR > 60.00
--- NOTE | 2024-04-03 08:06 | W.PN.UPDATE ---
Update Note
Progress Note Update
Mr. Soriano is resting comfortbly in bed this morning. He has no acute concerns at present. Plan for OR today 04/03/2024 for RIGHT hip removal of hardware/screws with conversion to RIGHT hip hemiarthroplasty under the direction of Dr. Bourgeois.
Surgical consents have been previously obtained. Hemoglobin 10.3 this AM. We do have one unit PRBC consulting engineer for OR. Blood consent has been obtained. Antibiotics and irrigation ordered to OR.
--Patient to remain NWB to RLE until post-op.
--NPO today until surgery.
--Continue with pain medications prn.
--Appreciate primary team's assistance with management of this patient. Continue to hold Eliquis for surgery.
--Prednisone 20 mg daily 04/02/2024, 04/03/2024 and 04/04/2024 for stress dose steroids. On 04/05/2024, he will resume normal dose of Prednisone 5 mg daily continuing thereafter as directed by PCP.
--Orthopedic surgery will continue to follow.
--- NOTE | 2024-04-03 08:54 | CM ---
Reviewed the chart notes. Plan for today is to OR for R hip removal of hardware/screws with conversion to R hip hemiarthroplasty. CM continues to be available to patient/family and is monitoring medical plan for needs at discharge.
Plan: Discharge plans will depend on the patient's progress.
--- NOTE | 2024-04-03 09:34 | PTCARENOTE ---
pt requested the SCD be removed from Right LE due to recent DVT.
--- NOTE | 2024-04-03 13:58 | W.PN.HOSP.TC ---
Today's Communication/Plan
-
Resume Eliquis at therapeutic dose when okay from a surgery
Continue with the current medication including stress dose of steroids
PT OT eval
Assessment / Plan
Assessment / Plan
IMPRESSION:
78 man with problem with hardware on hip. Ortho consulted and will have procedure on Wednesday.
PLAN:
Right hip pain secondary to loose hardware
Status post right SAHIL today-patient without any cardiopulmonary symptoms. Hemodynamically stable. Continue with postop care including DVT prophylaxis per orthopedic. Will restart his therapeutic dose of Eliquis when okay from orthopedic
standpoint.
Essential hypertension-continue with Coreg
Mild chronic microcytic anemia-continue to follow
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 Hemodynamically stable. Will transition to home dose 04/05.
History of DVT on Eliquis which is on hold. Patient had an IVC filter prior to hospitalization this week.
Full code
Full code
VCD fro DVTp
Anticipated Discharge: 24 - 48 hours
Subjective/Interval History
-
Date of Service: April 03, 2024
Seen in PACU
S/p right hemiarthroplasty.
Patient awake and oriented.
Denies any nausea vomiting.
Denies any chest pain or shortness of breath.
Pain from surgical site is okay currently.
Objective Data
-
Labs:
Laboratory Results
04/03/24
05:27
WBC 10.1
Hgb 10.3 L
Hct 31.6 L
Plt Count 329
Sodium 137
Potassium 4.7
Chloride 102
Carbon Dioxide 28
BUN 25 H
Creatinine 1.1
Glucose 97
Calcium 8.8
Vital Signs:
Vital Signs
Temp Pulse Resp BP Pulse Ox
97.1 F 72 15 144/75 98
04/03/24 12:55 04/03/24 13:45 04/03/24 13:45 04/03/24 13:45 04/03/24 13:45
I&O
04/02/24 04/03/24 04/04/24
06:59 06:59 06:59
Intake Total 480 / 480 1080 / 1080
Output Total 1000 / 1000 1800 / 1800 100 / 100
Balance -520 / -520 -720 / -720 -100 / -100
Review of Systems
-
Constitutional: Denies Fever
EENT: Denies Sore Throat
Abdomen/GI: Denies Abdominal Pain
Neuro: Denies Dizzy
Physical Exam
-
General: No Apparent Distress
HEENT: Moist Mucous Membranes
Respiratory: Clear to Auscultation (Anterior auscultation)
Cardiac: Regular Rhythm and S1/S2
GI: Soft and Nontender
Neuro: AO x 3
Psych: Calm
Data Reviewed
-
Labs: Labs Reviewed by me
[2024-04-03] MEDS: DELTASONE 20 MG PO (14:28)
[2024-04-03] MEDS: THERAGRAN 1 TABLET PO (14:28)
[2024-04-03] MEDS: PROTONIX 40 MG PO ×2 (14:28→19:47)
[2024-04-03] MEDS: LEXAPRO 20 MG PO (14:28)
[2024-04-03] MEDS: ASPIR LOW (ENTERIC COATED) 81 MG PO (14:29)
[2024-04-03] MEDS: COREG 3.125 MG PO ×2 (14:29→19:47)
--- NOTE | 2024-04-03 14:42 | PTCARENOTE ---
Addendum entered by Sujatha Garcia RN 04/03/24 14:50:
daily am medications given per MAR w/applesauce. denies nausea. assisted to call his . neurovascular checks per work list. will observe.
Original Note:
pt received from PACU via bed at 1410. pt alert and awake but c/o feeling sleepy. oriented to post op plan of care. posterolateral hip precautions and abductor pillow education provided. Right hip dressing clean and dry. ice pack in place.
Sequential compression devices removed and B/L venous foot pumps placed. pt with difficulty negotiating urinal w/abductor pillow in place-condom catheter placed by SCALE INSTALLER. drinking water and eager for food. denies pain. care ongoing.
[2024-04-03] MEDS: ANCEF 5 IV (18:18)
[2024-04-03] MEDS: ELIQUIS 5 MG PO (19:47)
[2024-04-04] VITALS (7 sets, daily range): BP systolic 92–153; BP diastolic 57–85; PULSE 92–113; O2SAT 96
[2024-04-04] MEDS: ANCEF 5 IV (02:13)
--- NOTE | 2024-04-04 06:14 | W.PN.ORTHO ---
Today's Communication / Plan
-
78-year-old male POD #1 removal hardware, right femoral neck and head, conversion to right hip hemiarthroplasty 04/03/2024 under the direction of Dr. Bourgeois.
- WBAT RLE with use of walker for ambulatory assistance.
- PT/OT. THP's x 6 weeks. Abductor pillow intact while in bed.
- Eliquis 5mg BID resumed.
- Prednisone 20mg daily today as ordered (final day of stress dose steroids). On 04/05/2024, he will resume normal dose of Prednisone 5 mg daily continuing thereafter as directed by PCP.
- Hemoglobin this AM 9.4. Continue to monitor and trend.
- Skin clip removal at 2 weeks post-op.
- Appreciate CM regarding D/C planning.
- Pain control per primary team.
- Orthopedic surgery will continue to follow.
Assessment
.
Distal Motor Intact: Yes
Dressing:
Compressive dressing with ABD and paper tape overlying Aquacel clean, dry, and intact.
Able to plantarflex and dorsiflex right ankle.
Calf nontender to palpation.
Abductor pillow intact.
NVI distally.
Assessment:
POD #1 Removal hardware, right femoral neck and head, Conversion to right hip hemiarthroplasty 04/03/[address] Bourgeois.
Plan
.
Surgery / Date: Right Hip IDANIA, Right Hip Suraj 04/03/2024
DVT Prophylaxis: Other (Eliquis)
Activity:
Out of bed.
PT/OT.
Discharge Plan: Other
Discharge Information:
Appreciate CM.
Subjective
.
.:
Patient resting comfortably in bed. Reports some soreness to the right hip, otherwise has no acute complaints or concerns at this time.
Vital Signs and Labs
.
Vital Signs and Labs:
Temp Pulse Resp BP Pulse Ox
97.7 F 80 18 133/71 96
04/04/24 02:18 04/04/24 02:18 04/04/24 02:18 04/04/24 02:18 04/04/24 02:18
PT 14.6 Sec (11.4-14.6) 04/01/24 13:05
INR 1.11 04/01/24 13:05
[2024-04-04 06:55] LABS: Hematocrit 29.1 % (39.0-52.0); Hemoglobin 9.4 g/dL (13.0-18.0); Mean Corp Hgb Conc. 32.3 g/dL (33.0-37.0); Mean Platelet Volume 9.6 fL (7.4-10.4); Platelet Count 332 10^3/uL (130-400); Red Blood Cell Count 2.94 10^6/uL (4.70-6.10); Red Cell Dist. Width 14.6 % (11.5-14.5); White Blood Cell Count 13.8 10^3/uL (4.8-10.8)
[2024-04-04 07:23] LABS: Blood Urea Nitrogen 26 mg/dl (9-20); Calcium 8.6 mg/dl (8.4-10.2); Carbon Dioxide 27 mmol/L (22-30); Chloride 100 mmol/L (98-107); Estimated Creatinine Clearance 59 ml/min; Glucose 121 mg/dl (70-99); Potassium 5.3 mmol/L (3.5-5.1); Sodium 136 mmol/L (135-145); eGFR > 60.00
[2024-04-04] MEDS: DELTASONE 20 MG PO (09:25)
[2024-04-04] MEDS: THERAGRAN 1 TABLET PO (09:25)
[2024-04-04] MEDS: COREG 3.125 MG PO ×2 (09:25→20:30)
[2024-04-04] MEDS: ELIQUIS 5 MG PO ×2 (09:25→20:30)
[2024-04-04] MEDS: ASPIR LOW (ENTERIC COATED) 81 MG PO (09:25)
[2024-04-04] MEDS: LEXAPRO 20 MG PO (09:26)
[2024-04-04] MEDS: PROTONIX 40 MG PO ×2 (09:26→20:30)
--- NOTE | 2024-04-04 13:16 | W.PN.HOSP.TC ---
Today's Communication/Plan
-
DC planning
Assessment / Plan
Assessment / Plan
IMPRESSION:
78 man with problem with hardware on hip. Ortho consulted and will have procedure on Wednesday.
PLAN:
Right hip pain secondary to loose hardware
Status post right SAHIL 04/03-patient without any immediate cardiopulmonary symptoms. Hemodynamically stable. Continue with postop care including DVT prophylaxis per orthopedic. Restarted Eliquis. PT OT eval.
Essential hypertension-continue with Coreg
Mild chronic microcytic anemia-continue to follow
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 Hemodynamically stable. Will transition to home dose 04/05.
History of DVT on Eliquis which is on hold. Patient had an IVC filter prior to hospitalization this week.
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 Follow for any GI bleed while on the meds.
Full code
Full code
VCD fro DVTp
Anticipated Discharge: Within 24 hours
Subjective/Interval History
-
Date of Service: April 04, 2024
Pain tolerable from the right hip operative site.
Denies any nausea vomiting. No shortness of breath or chest pain.
No fever or chills.
Objective Data
-
Labs:
Laboratory Results
04/04/24
05:03
WBC 13.8 H
Hgb 9.4 L
Hct 29.1 L
Plt Count 332
Sodium 136
Potassium 5.3 H
Chloride 100
Carbon Dioxide 27
BUN 26 H
Creatinine 1.1
Glucose 121 H
Calcium 8.6
Vital Signs:
Vital Signs
Temp Pulse Resp BP Pulse Ox
98.2 F 86 18 139/78 98
04/04/24 11:06 04/04/24 11:06 04/04/24 11:06 04/04/24 11:06 04/04/24 11:06
I&O
04/03/24 04/04/24 04/05/24
06:59 06:59 06:59
Intake Total 1080 / 1080 1570 / 1570
Output Total 1800 / 1800 500 / 500
Balance -720 / -720 1070 / 1070
Physical Exam
-
General: No Apparent Distress
HEENT: Moist Mucous Membranes
Respiratory: Clear to Auscultation and Non Labored Respirations; Negative Accessory Resp Muscle Use
Cardiac: Regular Rhythm and S1/S2; Negative Tachycardic
GI: Soft and Nontender
Neuro: AO x 3
Psych: Calm; Negative Confused
Data Reviewed
-
Labs: Labs Reviewed by me
--- NOTE | 2024-04-04 15:15 | CM ---
Chart reviewed and met with pt
PT/OT evals - recs - acute rehab
Spoke with pt - requesting [facility] - will send referral in [facility]
Plan - anticipate acute rehab when bed obtained and medically ready
--- NOTE | 2024-04-05 02:46 | DOWNTIME ---
There was a [employer] Downtime on 04/05/2024 from 0100 to 04/05/2023 at 0205 . Downtime documentation of patient's care, including medication administrations, has been reconciled in the electronic record per guidelines. Refer to the
patient's paper chart under the miscellaneous tab to see printed paper medication records and downtime forms.
--- NOTE | 2024-04-05 05:24 | W.PN.ORTHO ---
Today's Communication / Plan
-
78-year-old male POD #2 removal hardware & conversion right hip hemiarthroplasty 04/03/2024 under the direction of Dr. Bourgeois.
- WBAT RLE with use of walker for ambulatory assistance.
- PT/OT. Posterior/THP's x 6 weeks. Abductor pillow intact while in bed.
- DVT ppx: Eliquis 5mg BID resumed. Early ambulation, SCDs/VFPs
- reg diet
- pain controlled on current regimen
- Prednisone 20mg daily today as ordered (final day of stress dose steroids). On 04/05/2024, he will resume normal dose of Prednisone 5 mg daily continuing thereafter as directed by PCP.
- Skin clip removal at 2 weeks post-op.
- Appreciate CM regarding D/C planning.
- Orthopedic surgery will follow peripherally at this time- please reengage with further questions/concerns.
Assessment
.
Distal Motor Intact: Yes
Dressing:
Clean, dry and intact.
Assessment:
Postoperative images show status post right hip hardware removal and hemiarthroplasty without evidence of hardware or osseous complication
Plan
.
Surgery / Date: Right Hip IDANIA, Right Hip Suraj 04/03/2024
Activity:
Out of bed.
PT/OT
Subjective
.
.:
Patient resting comfortably.
Vital Signs and Labs
.
Vital Signs and Labs:
Lab Results
04/04/24 05:03
04/04/24 05:03
Temp Pulse Resp BP Pulse Ox
98.1 F 82 16 140/67 97
04/04/24 23:21 04/04/24 23:21 04/04/24 23:21 04/04/24 23:21 04/04/24 23:21
PT 14.6 Sec (11.4-14.6) 04/01/24 13:05
INR 1.11 04/01/24 13:05
[2024-04-05 07:35] VITALS: BP 138/67
[2024-04-05] MEDS: LEXAPRO 20 MG PO (07:57)
[2024-04-05] MEDS: PROTONIX 40 MG PO ×2 (07:57→21:20)
[2024-04-05] MEDS: ASPIR LOW (ENTERIC COATED) 81 MG PO (07:57)
[2024-04-05] MEDS: COREG 3.125 MG PO ×2 (07:58→21:20)
[2024-04-05] MEDS: THERAGRAN 1 TABLET PO (07:58)
[2024-04-05] MEDS: DELTASONE 5 MG PO (07:58)
[2024-04-05] MEDS: ELIQUIS 5 MG PO ×2 (07:58→21:20)
[2024-04-05] MEDS: TYLENOL 650 MG PO (08:01)
--- NOTE | 2024-04-05 08:01 | W.PN.UPDATE ---
Update Note
Progress Note Update
Patient seen and examined. Patient is in no apparent distress. Has some right hip pain but Tylenol seems to help that discomfort. He was able to get up with physical therapy yesterday. He does have improvement since his preoperative status
right lower extremity: Dressings clean dry and intact. Good active range of motion of the ankle. Pre-existing edema legs. Grossly neurologically intact
postop day 2 removal of hardware, conversion to right hip hemiarthroplasty
plan: Remove dressings and laney in 8 to 10 days. follow-up with Dr. Bourgeois in 4 weeks for x-rays and clinical exam. Weight-bear as tolerated with walker. Steffanie as per medical doctors. PT/OT gait training hip precautions. Abduction
pillow in bed x 3 months. Spoke with his today regarding his progress
--- NOTE | 2024-04-05 11:38 | CM ---
Addendum entered by Lucila Hobson 04/05/24 13:34:
[facility] stated bed available tomorrow.
Original Note:
Patient seen at bedside.
PT rec acute rehab
Referral to [facility] accepted.
Spoke with [facility] bed available Wednesday.
Discussed with patient
PLAN: [facility]
Report #: [phone]
Fax #: [phone]
--- NOTE | 2024-04-05 12:07 | W.PN.HOSP.TC ---
Today's Communication/Plan
-
Jordan Worker consult
DC
Assessment / Plan
Assessment / Plan
IMPRESSION:
78 man with problem with hardware on hip. Ortho consulted and will have procedure on Wednesday.
PLAN:
Right hip pain secondary to loose hardware
Status post right SAHIL 04/03-patient without any immediate cardiopulmonary symptoms. Hemodynamically stable. Continue with postop care including DVT prophylaxis per orthopedic. Restarted Eliquis. PT OT arnaud graf [facility] rehab. Consult
Jordan Worker.
Essential hypertension-continue with Coreg
Mild chronic microcytic anemia-stable
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 Hemodynamically stable. Transitioned to home dose 04/05.
History of DVT on Eliquis . Patient had an IVC filter prior to hospitalization this week. Eliquis resumed post op .
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 Follow for any GI bleed while on the meds.
Medically stable for DC
Full code
VCD fro DVTp
Anticipated Discharge: Today
Subjective/Interval History
-
Date of Service: April 05, 2024
Improved pain from the right hip surgical site.
Denies any nausea ,vomiting,and tolerating diet.
Denies any shortness of breath or chest pain.
Worked with PT yesterday who were recommending acute rehab and he would like to go to [facility]
Objective Data
-
Vital Signs:
Vital Signs
Temp Pulse Resp BP Pulse Ox
97.8 F 78 16 138/67 93
04/05/24 07:35 04/05/24 07:58 04/05/24 07:35 04/05/24 07:58 04/05/24 07:35
I&O
01/21/25 01/22/25 01/23/25
06:59 06:59 06:59
Intake Total 1570 / 1570 1020 / 1020
Output Total 500 / 500 850 / 850
Balance 1070 / 1070 170 / 170
Review of Systems
-
Constitutional: Denies Fever or Chills
Neuro: Denies Dizzy
Physical Exam
-
General: No Apparent Distress
Respiratory: Non Labored Respirations; Negative Accessory Resp Muscle Use
Cardiac: Regular Rhythm and S1/S2; Negative Tachycardic
GI: Soft
[2024-04-05 12:35] VITALS: BP 131/65; PULSE 75; O2SAT 97
--- NOTE | 2024-04-05 12:40 | W.PN.HOSP.TC ---
Today's Communication/Plan
-
dc planning
Assessment / Plan
Assessment / Plan
IMPRESSION:
78 man with problem with hardware on hip. Ortho consulted and will have procedure on Wednesday.
PLAN:
Right hip pain secondary to loose hardware
Status post right SAHIL 04/03-patient without any immediate cardiopulmonary symptoms. Hemodynamically stable. Continue with postop care including DVT prophylaxis per orthopedic. Restarted Eliquis. PT OT ar[facility]ud [facility]. Consult
Senior Tax Accountant.
Essential hypertension-continue with Coreg
Mild chronic microcytic anemia-stable
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 Hemodynamically stable. Transitioned to home dose 04/05.
History of DVT on Eliquis . Patient had an IVC filter prior to hospitalization this week. Eliquis resumed post op .
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 Follow for any GI bleed while on the meds.
Medically stable for DC
Full code
VCD fro DVTp
Anticipated Discharge: Within 24 hours
Subjective/Interval History
-
Date of Service: April 05, 2024
Objective Data
-
Vital Signs:
Vital Signs
Temp Pulse Resp BP Pulse Ox
97.8 F 78 16 138/67 93
04/05/24 07:35 04/05/24 07:58 04/05/24 07:35 04/05/24 07:58 04/05/24 08:00
I&O
04/04/24 04/05/24 04/06/24
06:59 06:59 06:59
Intake Total 1570 / 1570 1020 / 1020
Output Total 500 / 500 850 / 850
Balance 1070 / 1070 170 / 170
[2024-04-05 12:42] VITALS: BP 131/65; PULSE 80; O2SAT 97
[2024-04-05 15:31] VITALS: BP 159/90
[2024-04-05] MEDS: SENOKOT-S 1 TABLET PO (16:53)
[2024-04-05 21:13] VITALS: BP 126/84
[2024-04-05 23:35] VITALS: BP 142/64
[2024-04-06] MEDS: TYLENOL 650 MG PO (04:58)
[2024-04-06] MEDS: MIRALAX 17 GRAMS PO (04:59)
[2024-04-06 07:40] VITALS: BP 135/65
[2024-04-06] MEDS: ASPIR LOW (ENTERIC COATED) 81 MG PO (09:19)
[2024-04-06] MEDS: COREG 3.125 MG PO (09:19)
[2024-04-06] MEDS: LEXAPRO 20 MG PO (09:20)
[2024-04-06] MEDS: DULCOLAX 10 MG RECTAL (09:20)
[2024-04-06] MEDS: DELTASONE 5 MG PO (09:20)
[2024-04-06] MEDS: ELIQUIS 5 MG PO (09:20)
[2024-04-06] MEDS: THERAGRAN 1 TABLET PO (09:20)
[2024-04-06] MEDS: PROTONIX 40 MG PO (09:20)
--- NOTE | 2024-04-06 09:58 | W.PN.HOSP.TC ---
Today's Communication/Plan
-
DC
Assessment / Plan
Assessment / Plan
IMPRESSION:
78 man with problem with hardware on hip. Ortho consulted and will have procedure on Wednesday.
PLAN:
Right hip pain secondary to loose hardware
Status post right SAHIL 04/03-patient without any immediate cardiopulmonary symptoms. Hemodynamically stable. Continue with postop care including DVT prophylaxis per orthopedic. Restarted Eliquis. PT OT arnaud [facility]. Consulted
Desktop Engineer who recommends acute rehab.
Essential hypertension-continue with Coreg
Mild chronic microcytic anemia-stable
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 Hemodynamically stable. Transitioned to home dose 04/05.
History of DVT on Eliquis . Patient had an IVC filter prior to hospitalization this week. Eliquis resumed post op .
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 Follow for any GI bleed while on the meds.
Medically stable for DC
Full code
VCD fro DVTp
DW CM - Bed available at [facility]
DC
More than 30 minutes spent in discharge including
Final examination of the patient
Summarizing hospital stay
Instructions for continuing care to all relevant caregivers
Preparation of discharge records, prescriptions, and referral forms
Total time spent (in minutes): 35
Anticipated Discharge: Today
Subjective/Interval History
-
Date of Service: April 06, 2024
Pain from surgical site is okay with the medication.
Constipated.
Objective Data
-
Vital Signs:
Vital Signs
Temp Pulse Resp BP Pulse Ox
98.1 F 73 16 135/65 95
04/06/24 07:40 04/06/24 09:19 04/06/24 07:40 04/06/24 09:19 04/06/24 07:40
I&O
04/05/24 04/06/24 04/07/24
06:59 06:59 06:59
Intake Total 1020 / 1020 560 / 560
Output Total 850 / 850 700 / 700
Balance 170 / 170 -140 / -140
Review of Systems
-
Constitutional: Denies Fever
Respiratory: Denies Trouble Breathing
Cardiac: Denies Chest Pain
Abdomen/GI: Denies Abdominal Pain, Nausea or Vomiting
Neuro: Denies Dizzy
Physical Exam
-
General: No Apparent Distress
Respiratory: Non Labored Respirations; Negative Accessory Resp Muscle Use
Cardiac: Regular Rhythm and S1/S2; Negative Tachycardic
GI: Soft, Nontender, Nondistended and Normal Bowel Sounds
Neuro: AO x 3
Psych: Calm
--- NOTE | 2024-04-06 10:20 | CM ---
Chart reviewed. Met with pt
Pt for discharge today
[facility] accept
Given IMM
Plan - transfer to [facility] at
Report #: [phone]
Fax #: [phone]
[2024-04-06 15:12] VITALS: BP 128/64
== END 2024-04-06 15:35 | DRG 470 ==
LOC: 2 SOUTH 17:39
PROVIDERS: Physician Assistant; ADMITTING PHYSICIAN Internal Medicine; ATTENDING PHYSICIAN Internal Medicine; CONSULT PHYSICIAN Orthopaedic Surgery; EMERGENCY PHYSICIAN Student in an Organized Health Care Education/Training Program; FAMILY PHYSICIAN Student in an Organized Health Care Education/Training Program
PROC: 0QP604Z Removal of Internal Fixation Device from Right Upper Femur, Open Approach (ICD-10-PCS; 2024-04-03)
PROC: 0SRR0J9 Replacement of Right Hip Joint, Femoral Surface with Synthetic Substitute, Cemented, Open Approach (ICD-10-PCS; 2024-04-03)
DX: T84.124A Displacement of internal fixation device of right femur, initial encounter (principal); S72.011P Unspecified intracapsular fracture of right femur, subsequent encounter for closed fracture with malunion; D84.821 Immunodeficiency due to drugs; I25.10 Atherosclerotic heart disease of native coronary artery without angina pectoris; N18.31 Chronic kidney disease, stage 3a; I12.9 Hypertensive chronic kidney disease with stage 1 through stage 4 chronic kidney disease, or unspecified chronic kidney disease; I89.0 Lymphedema, not elsewhere classified; K21.9 Gastro-esophageal reflux disease without esophagitis; E78.00 Pure hypercholesterolemia, unspecified; E55.9 Vitamin D deficiency, unspecified; E53.8 Deficiency of other specified B group vitamins; G72.49 Other inflammatory and immune myopathies, not elsewhere classified; D63.1 Anemia in chronic kidney disease; T38.0X5A Adverse effect of glucocorticoids and synthetic analogues, initial encounter; Z79.52 Long term (current) use of systemic steroids; Z79.82 Long term (current) use of aspirin; Z79.899 Other long term (current) drug therapy; Z86.73 Personal history of transient ischemic attack (TIA), and cerebral infarction without residual deficits; W18.30XD Fall on same level, unspecified, subsequent encounter; Z86.718 Personal history of other venous thrombosis and embolism; Y79.2 Prosthetic and other implants, materials and accessory orthopedic devices associated with adverse incidents
CPT/HCPCS: 73502; 80048; 80053; 85025; 85027; 85610; 85730; 86850; 86900; 86901; 86920; 93005; 93970; 97116; 97163; 97167; 97535; 99284; C1713; C1776

== ENCOUNTER → 2024-04-21 15:13 | Outpatient (REF) | payer MEDICARE, OTHER, SELFPAY ==
[2024-04-21 16:28] LABS: % Basophils 0.4 % (0-2); % Eosinophils 0.3 % (0-6); % Immature Granulocytes 0.7 % (0-0.5); % Lymphocytes 11.6 % (20.5-51.1); % Monocytes 7.9 % (1.7-9.3); % Neutrophils 79.1 % (42.2-75.2); Absolute Immature Granulocytes 0.1 10^3/uL (0-0.05); Absolute Lymphocytes 0.8 10^3/uL (1.2-3.4); Absolute Monocytes 0.6 10^3/uL (0.1-0.6); Absolute Neutrophils 5.5 10^3/uL (1.4-6.5); Hematocrit 28.9 % (39.0-52.0); Hemoglobin 8.9 g/dL (13.0-18.0); Mean Corp Hgb Conc. 30.8 g/dL (33.0-37.0); Mean Corpuscular Hgb 31.3 pg (27.0-31.0); Mean Corpuscular Volume 101.8 fL (80.0-94.0); Mean Platelet Volume 9.5 fL (7.4-10.4); Nucleated Red Blood Cells % 0 % (-); Platelet Count 360 10^3/uL (130-400); Red Blood Cell Count 2.84 10^6/uL (4.70-6.10); Red Cell Dist. Width 15.9 % (11.5-14.5); White Blood Cell Count 6.9 10^3/uL (4.8-10.8)
[2024-04-21 16:41] LABS: Albumin 2.8 g/dl (3.5-5.0); Blood Urea Nitrogen 24 mg/dl (9-20); Calcium 8.4 mg/dl (8.4-10.2); Carbon Dioxide 27 mmol/L (22-30); Chloride 100 mmol/L (98-107); Glucose 94 mg/dl (70-99); Iron 39 ug/dl (49-181); Potassium 4.1 mmol/L (3.5-5.1); Sodium 133 mmol/L (135-145); eGFR 40.75
[2024-04-21 16:51] LABS: Percent Saturation 20 % (20-50); Total Iron Binding Capacity 186 ug/dl (261-462)
== END ==
LOC: CLAB 15:13
PROVIDERS: ATTENDING PHYSICIAN Student in an Organized Health Care Education/Training Program
DX: D64.9 Anemia, unspecified (principal); N18.31 Chronic kidney disease, stage 3a
CPT/HCPCS: 36415; 80069; 82728; 83540; 83550; 85025

== ENCOUNTER → 2024-05-05 10:40 | Outpatient (REF) | payer MEDICARE, OTHER, SELFPAY ==
[2024-05-05 11:59] LABS: % Basophils 0.4 % (0-2); % Eosinophils 0.7 % (0-6); % Lymphocytes 14.5 % (20.5-51.1); % Monocytes 10.3 % (1.7-9.3); % Neutrophils 73.1 % (42.2-75.2); Absolute Eosinophils 0.1 10^3/uL (0-0.7); Absolute Immature Granulocytes 0.1 10^3/uL (0-0.05); Absolute Lymphocytes 1.4 10^3/uL (1.2-3.4); Absolute Neutrophils 7.2 10^3/uL (1.4-6.5); Hematocrit 29.7 % (39.0-52.0); Hemoglobin 9.2 g/dL (13.0-18.0); Mean Corpuscular Hgb 31.6 pg (27.0-31.0); Mean Corpuscular Volume 102.1 fL (80.0-94.0); Mean Platelet Volume 9.6 fL (7.4-10.4); Nucleated Red Blood Cells % 0 % (-); Platelet Count 370 10^3/uL (130-400); Red Blood Cell Count 2.91 10^6/uL (4.70-6.10); Red Cell Dist. Width 15.5 % (11.5-14.5); White Blood Cell Count 9.9 10^3/uL (4.8-10.8)
[2024-05-05 12:30] LABS: Albumin 3.2 g/dl (3.5-5.0); Blood Urea Nitrogen 19 mg/dl (9-20); Calcium 8.9 mg/dl (8.4-10.2); Carbon Dioxide 26 mmol/L (22-30); Chloride 100 mmol/L (98-107); Glucose 84 mg/dl (70-99); Phosphorus 3.2 mg/dl (2.5-4.5); Potassium 4.3 mmol/L (3.5-5.1); Sodium 135 mmol/L (135-145); eGFR 51.45
== END ==
LOC: REG 10:40
PROVIDERS: ATTENDING PHYSICIAN Student in an Organized Health Care Education/Training Program
DX: E87.1 Hypo-osmolality and hyponatremia (principal); D64.9 Anemia, unspecified; R79.89 Other specified abnormal findings of blood chemistry
CPT/HCPCS: 36415; 80069; 85025

== ENCOUNTER → 2024-05-30 10:34 | Outpatient (REF) | payer MEDICARE, OTHER, SELFPAY ==
[2024-05-30 11:27] LABS: Erythrocyte Sed Rate 89 mm/hour (0-20)
[2024-05-30 12:13] LABS: Creatine Phosphokinase 40 U/L (55-170)
== END ==
LOC: REG 10:34
PROVIDERS: ATTENDING PHYSICIAN Internal Medicine; FAMILY PHYSICIAN Student in an Organized Health Care Education/Training Program; OTHER PHYSICIAN Psychiatry & Neurology Neurology
DX: G72.0 Drug-induced myopathy (principal); M60.80 Other myositis, unspecified site
CPT/HCPCS: 36415; 82550; 85652; 86140

== ENCOUNTER 2024-06-02 16:19 | Inpatient (IN) | payer MEDICARE, OTHER, SELFPAY ==
[2024-05-31 15:01] VITALS: BP 125/65
[2024-05-31 15:39] LABS: % Basophils 0.3 % (0-2); % Eosinophils 1.1 % (0-6); % Immature Granulocytes 1.2 % (0-0.5); % Lymphocytes 9.8 % (20.5-51.1); % Monocytes 6.2 % (1.7-9.3); % Neutrophils 81.4 % (42.2-75.2); Absolute Basophils 0.1 10^3/uL (0-0.2); Absolute Eosinophils 0.2 10^3/uL (0-0.7); Absolute Immature Granulocytes 0.2 10^3/uL (0-0.05); Absolute Lymphocytes 1.5 10^3/uL (1.2-3.4); Absolute Monocytes 0.9 10^3/uL (0.1-0.6); Hematocrit 29.8 % (39.0-52.0); Hemoglobin 9.5 g/dL (13.0-18.0); Mean Corp Hgb Conc. 31.9 g/dL (33.0-37.0); Mean Corpuscular Hgb 30.4 pg (27.0-31.0); Mean Corpuscular Volume 95.2 fL (80.0-94.0); Mean Platelet Volume 9.7 fL (7.4-10.4); Nucleated Red Blood Cells % 0 % (-); Platelet Count 328 10^3/uL (130-400); Red Blood Cell Count 3.13 10^6/uL (4.70-6.10); Red Cell Dist. Width 16.5 % (11.5-14.5); White Blood Cell Count 14.8 10^3/uL (4.8-10.8)
[2024-05-31 15:58] LABS: Troponin I < 0.012 ng/ml
[2024-05-31 16:10] LABS: ALT (SGPT) 15 U/L (0-50); AST (SGOT) 25 U/L (17-59); Albumin 3.1 g/dl (3.5-5.0); Alkaline Phosphatase 104 U/L (38-126); Blood Urea Nitrogen 20 mg/dl (9-20); Calcium 9.2 mg/dl (8.4-10.2); Carbon Dioxide 23 mmol/L (22-30); Chloride 104 mmol/L (98-107); Glucose 99 mg/dl (70-99); Potassium 4.1 mmol/L (3.5-5.1); Sodium 136 mmol/L (135-145); Total Bilirubin 0.6 mg/dl (0.2-1.3); Total Protein 6.1 g/dl (6.3-8.2); eGFR 56.23
[2024-05-31 16:23] VITALS: BP 158/74
--- NOTE | 2024-05-31 16:28 | ED.GENMED ---
History of Present Illness
General
Chief Complaint: Fainting Sensation
Time Seen by Provider: 05/31/24 16:24
History of Present Illness
History of Present Illness:
TIME OF INITIAL ENCOUNTER: 4:30 PM
HPI: The patient came in by ambulance. He did fall and strike his head and is on Eliquis. The states that he fell over. He was recently at rehab and then doing with physical therapy. He was doing well in the driveway with a physical
therapist and then suddenly went down to the ground. He did strike the back of his head. He has no neck pain.
EXAM:
GENERAL: The patient appears generally weak and debilitated and chronically ill
CERVICAL SPINE: No midline c-spine tenderness with excellent AROM
HEAD: small contusion/hematoma to left side of the posterior scalp
CHEST: No chest wall tenderness, normal heart sounds
LUNGS: Equal lung sounds, no respiratory distress
ABDOMEN: No abdominal tenderness, no peritoneal signs
EXTREMITIES: Marked pitting edema both lower extremities left greater than right, he has only mild pain when I passively rotate the left hip, there is no symptoms at the right hip
NEURO: Excellent strength all extremities, appropriate mental status, normal speech/language
NUMBER AND COMPLEXITY OF PROBLEMS ADDRESSED AT THE ENCOUNTER
� Chronic conditions affecting care: CAD, high blood pressure, hyperlipidemia, GERD, CKD stage III
� Acute Exacerbation and/or Progression of Chronic Illness: This is an acute problem
� Differential Diagnosis includes: Minor head injury, concussion, intracranial hemorrhage, hip fracture/pelvis fracture less likely
AMOUNT AND/OR COMPLEXITY OF DATA TO BE REVIEWED AND ANALYZED
� I performed an independent evaluation of and my interpretation is:
EKG: Sinus 72, left axis deviation, borderline LVH with associated ST abnormality
CT: CT head shows no acute abnormality
X-rays: Left hip and pelvis x-ray shows hardware with no sign of acute fracture or dislocation
Laboratory Studies: White count is 14.8, hemoglobin 9.5, chemistries unremarkable, creatinine has improved compared to April troponin less than 0.012
Other:
� Review of other/old records: I reviewed old records, hemoglobin in April of this year was 9.2
� Clinical information was obtained by an independent historian: I spoke to at bedside
� Prescriptions/Medications Considered but not given:
� Further testing considered but not performed: Patient does have some ongoing pain and consider CT of the pelvis however the patient has significant hardware therefore likely would show significant amount of artifact.
RISK OF COMPLICATIONS AND/OR MORBIDITY OR MORTALITY OF PATIENT MANAGEMENT
� Social determinants of health affecting care: Lives at home
� Discussion with other providers: Hospitalist for admission
� Escalation of care including admission/observation vs risk of discharge considered: White count 14.8 and the patient states that he felt cold however the patient's temperature on repeat by my examination was 98.2 Fahrenheit.
He is eager to go home. Relatively low suspicion for fracture. states that he did have a delayed diagnosis of fracture in the past. The patient does not feel that this is a fracture though.
ANY OTHER UPDATES:
7 PM: On reassessment, the patient is unable to take any steps and did poorly with just trying to stand up. states that she cannot care for him like this. Also the cause of him falling is unclear and may have been a syncopal event as opposed
to just a mechanical fall. I also discussed with Dr. Prater, radiology who agrees to hold off on CT and feels that MRI would be reasonable as neck step and could CT later if needed.
Past History
Past History
ED Past Medical History: CAD, CVA (2018), GERD, HTN, Hypercholesterolemia, Renal failure (CKD 3) and Other (Vitamin B12, vitamin D, adenomatous polyp, cholelithiasis)
ED Past Surgical History: Orthopedic (left hip ORIF 06/2023) and Other (Hernia, cataract surgery, bilateral cataract surgery, left leg stent)
Social History
Tobacco: Non-smoker
Alcohol: None
Drug: None
Personal:
Living: with family
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
Family History
Family History: Early CAD
Phy Exam
Physical Exam
Physical Exam:
See HPI
Course
Orders/Labs/Results
Orders:
Orders
05/31/24 15:07
EKG [Electrocardiogram (*1)] Urgent
Reason for Study: Syncope
CT Head W/o Iv Contrast Urgent
Comment:
Reason For Exam: head injury on eliquis
EKG- Treatment ONCE
05/31/24 15:08
Hip, Left 2-3 Views [CR Hip - LT w/wo Pel 2-3 Vw*] Urgent
Comment:
Reason For Exam: fall
Include a pelvis x-ray?: Yes
05/31/24 15:14
CBC/With Diff [Complete Blood Count/With Diff] Urgent
Comprehensive Metabolic Panel Urgent
05/31/24 15:19
Troponin I Urgent
05/31/24 16:51
0.9% Sodium Chloride 250 ml [Nss] 250 ml IV BOLUS
05/31/24 19:24
Acetaminophen [Tylenol] 1,000 mg PO NOW STA
Abnormal Lab Results
05/31/24
15:14
WBC 14.8 H 10^3/uL
(4.8-10.8)
RBC 3.13 L 10^6/uL
(4.70-6.10)
Hgb 9.5 L g/dL
(13.0-18.0)
Hct 29.8 L %
(39.0-52.0)
MCV 95.2 H fL
(80.0-94.0)
MCHC 31.9 L g/dL
(33.0-37.0)
RDW 16.5 H %
(11.5-14.5)
Abs Immat Gran (auto) 0.2 H 10^3/uL
(0-0.05)
Absolute Neuts (auto) 12.0 H 10^3/uL
(1.4-6.5)
Absolute Monos (auto) 0.9 H 10^3/uL
(0.1-0.6)
Immature Gran % 1.2 H %
(0-0.5)
Neutrophils % 81.4 H %
(42.2-75.2)
Lymphocytes % 9.8 L %
(20.5-51.1)
Total Protein 6.1 L g/dl
(6.3-8.2)
Albumin 3.1 L g/dl
(3.5-5.0)
05/31/24 15:14
05/31/24 15:14
Vital Signs
Initial and Last Documented VS:
Initial Vital Signs
Temp Pulse Resp BP Pulse Ox
36.8 C 97 16 125/65 97
05/31/24 15:01 05/31/24 15:01 05/31/24 15:01 05/31/24 15:01 05/31/24 15:01
Last Documented Vital Signs
Temp Pulse Resp BP Pulse Ox
36.8 C 72 20 158/74 91
05/31/24 15:01 05/31/24 16:23 05/31/24 16:23 05/31/24 16:23 05/31/24 16:23
*Critical Care Note
Total Time (30-74mins, 75-104mins- exclusive of procedures): Not Applicable
ED Attending Note
-
Portions of this chart may have been created with voice recognition software.� Occasional wrong word or��sound alike� substitutions may have occurred due to the inherent limitations of voice recognition software.
Discharge Plan
Departure
Patient Disposition: Admit
Date of Disposition: 05/31/24
Time of Disposition: 19:10
Presentation/result/management discussed w/ accepting MD/DO: Hospitalist
Patient with high blood pressure during this ER visit?: Yes
Discharge Problem:
Ambulatory dysfunction
Prescriptions:
No Action
aspirin 81 mg Tablet,Delayed Release (Dr/Ec)
81 mg PO DAILY
pantoprazole 40 mg Tablet,Delayed Release (Dr/Ec)
40 mg PO BID Qty: 60 0RF
escitalopram oxalate 20 mg Tablet
20 mg PO DAILY Qty: 0 0RF
carvedilol 3.125 mg Tablet
3.125 mg PO BID Qty: 0 0RF
Eliquis 5 mg Tablet
5 mg PO BID Qty: 1 0RF
Referrals:
Geneva James MD [Family Provider] -
Interventions
Interventions:
*Risk Screen - Suicide Last Done: 05/31/24 15:01
*General Assessment Last Done: 05/31/24 16:34
*Neglect/Abuse Screening Last Done: 05/31/24 15:01
*ED COVID-19 Vaccine History Last Done: 05/31/24 16:34
ED- Cardiac Assessment Last Done: 05/31/24 16:34
ED- Neurological Assessment Last Done: 05/31/24 16:34
Discharge Date and Time
Print Language: PUERTO RICAN
[2024-05-31] MEDS: NSS 250 IV (16:56)
[2024-05-31] MEDS: TYLENOL 1000 MG PO (19:27)
--- NOTE | 2024-05-31 19:57 | HPS.HSE ---
Family Physician
-
Family Physician: Geneva James MD
Chief Complaint
-
fall
History of Present Illness
Patient is a 78-year-old male with past medical history significant for CAD, CVA (2018), GERD, essential hypertension, hypercholesterolemia and renal failure (CKD 3) who presented to [facility] ED for evaluation of fall with left hip pain.
Patient reports doing therapy today at home with visiting therapist and after she left he sat for a while then got up for lunch, he ambulated with walker half way to kitchen when he began to feel weak and that his legs could not hold him, he denies
any dizziness. He does not recall the fall but does not believe he lost consciousness. He attempted to call for his to bring wheelchair prior to falling but she was unable to get it to him fast enough. She did hear him hit floor and reports he
was awake and laying on floor when she got to him a few seconds later. Patient complains of left hip pain with movement or weight bearing. He has ROM and is free of pain while resting.
Medical History
Past Medical History
Past Medical History: Reports Other
Additional Past Medical History:
CAD
CVA (2018)
GERD
Hx RLE DVT
essential hypertension
Hypercholesterolemia
Renal failure (CKD 3)
cholelithiasis
May-Thurner syndrome
Lymphedema of both lower extremities
Cerebrovascular accident (CVA) due to embolism of left anterior cerebral artery
Left carotid artery occlusion
Carotid stenosis, right
Vitamin D deficiency
B12 deficiency
Abnormal nuclear stress test
Aortic valve sclerosis
Atherosclerosis of abdominal aorta
History of adenomatous polyp of colon
Elevated liver enzymes
Lumbago with sciatica, right side
Celiac disease
Calculus of gallbladder without cholecystitis without obstruction
Past Surgical History: Reports Other
Additional Past Surgical History:
left hip ORIF 06/2023
Hernia
cataract surgery
bilateral cataract surgery
left leg stent
Social History
Tobacco: Non-smoker
Alcohol: None
Drug: None
Personal:
Living: With Family
Family History
Family History: Not pertinent
Allergies / Home Medications
Allergies reflects when Allergies were last updated in [employer].
Home Medications with original date entered in [employer]
Allergy/Medication List:
Allergies
Allergy/AdvReac Type Severity Reaction Status Date / Time
gluten Allergy Celiac Verified 05/31/24 15:01
disease
Home Medications
aspirin 81 mg tablet,delayed release 81 mg PO DAILY 02/13/24
escitalopram oxalate 20 mg tablet 20 mg PO DAILY Mental Health/Anxiety #0 tabs 02/28/24
pantoprazole 40 mg tablet,delayed release 40 mg PO BID Gastrointestinal issue #60 tabs 02/28/24
apixaban 5 mg tablet (Eliquis) 5 mg PO BID blood clot #1 tab 04/18/24
carvedilol 3.125 mg tablet 3.125 mg PO BID blood pressure #0 tabs 04/18/24
Review of Systems
-
History Source: Patient
Constitutional: Reports No Symptoms
EENT: Reports No Symptoms
Respiratory: Reports No Symptoms
Cardiac: Reports No Symptoms
Abdomen/GI: Reports No Symptoms
: Reports No Symptoms
Musculoskeletal: Reports Joint Pain (left hip pain with ROM or weight bearing )
Skin: Reports No Symptoms
Neurological: Reports No Symptoms
Endocrine: Reports No Symptoms
Hematologic/Lymphatic: Reports No Symptoms
Psych: Reports No Symptoms
Physical Exam
Vital Signs
Vital Signs
Temp Pulse Resp BP Pulse Ox
98.3 F 72 20 158/74 91
05/31/24 15:01 05/31/24 16:23 05/31/24 16:23 05/31/24 16:23 05/31/24 16:23
Physical Exam
General: Well Developed, Well Nourished, No Apparent Distress, Comfortable and Conversant
HEENT: NormoCephalic, Moist mucous membranes, Atraumatic, [place] Conjunctivae, Nose Appears Normal and Ears Appear Normal
Respiratory: Clear and Non Labored Respirations
Cardiac: S1/S2 and Regular Rhythm; No Murmur, Rub or Gallop
GI: Soft, Non Tender, Non Distended and Normal Bowel Sounds; No Organomegaly
Rectal: Deferred by Provider
Genito-urinary: Deferred by me
Musculoskeletal: No Clubbing, No Cyanosis, Edema, Left Lower Extremity (+4 pitting ) and Edema, Right Lower Extremity (+3 pitting )
Skin: No Rash
Neuro: Awake, Alert, AO x 3 and Nonfocal/grossly intact
Psych: Calm and Intact Judgment/Insight
Laboratory Results
-
05/31/24 15:14
05/31/24 15:14
Laboratory Results
Total Bilirubin 0.6 mg/dl (0.2-1.3) 05/31/24 15:14
AST 25 U/L (17-59) 05/31/24 15:14
ALT 15 U/L (0-50) 05/31/24 15:14
Alkaline Phosphatase 104 U/L (38-126) 05/31/24 15:14
Troponin I < 0.012 ng/ml 05/31/24 15:19
Data Reviewed
-
Diagnostic Radiology: Report Reviewed by me (L Hip: No convincing radiographic evidence for acute fracture or dislocation. If there are persistent clinical symptoms and further imaging evaluation is desired, consider CT or MRI.)
CT Scan: Report Reviewed by me (head: No evidence of acute intracranial abnormality)
Medical Tests (Nuc Med, Echo, EKG etc): Report Reviewed by me (EKG: NORMAL SINUS RHYTHM INCOMPLETE LEFT BUNDLE BLOCK MINIMAL VOLTAGE CRITERIA FOR LVH, MAY BE NORMAL VARIANT ( R in aVL ) NONSPECIFIC ST ABNORMALITY)
Lab Data: Labs Reviewed by me (WBC 14.8, Hgb 9.5, Hct 29.8, Neut 81.4, BUN 20, Creat 1.3, eGFR 56.23)
Impression/Plan
-
IMPRESSION/PLAN:
#ambulatory dysfunction
#left hip pain s/p fall
unsure if syncopal episode or mechanical fall
WBC 14.8, Hgb 9.5, Hct 29.8, Neut 81.[address]: No evidence of acute intracranial abnormality
L Hip x-ray: No convincing radiographic evidence for acute fracture or dislocation.
If there are persistent clinical symptoms and further imaging evaluation is desired, consider CT or MRI.
EKG: NORMAL SINUS RHYTHM
INCOMPLETE LEFT BUNDLE BLOCK
MINIMAL VOLTAGE CRITERIA FOR LVH, MAY BE NORMAL VARIANT ( R in aVL )
NONSPECIFIC ST ABNORMALITY
- Admit to telemetry
- orthostatic VS
- Consult Ortho
- MRI in morning
- consult PT/OT
#CAD
#CVA (2018)
#Hypercholesterolemia
- continue aspirin
#Hx RLE DVT
- continue Eliquis
#GERD
- continue pantoprazole
#essential hypertension
- continue carvedilol
#Renal failure (CKD 3)
BUN 20, Creat 1.3, eGFR 56.23
- monitor BMP
Code status: Full code
DVT Prophylaxis: SCDs
--- NOTE | 2024-05-31 20:50 | W.PN.UPDATE ---
Update Note
Progress Note Update
Patient seen in conjunction with TANYARD WORKER. I agree the findings on history of physical. I concur with the assessment and plan unless stated otherwise.
Briefly, this is a 78-year-old with past medical history that is significant for CAD, hypertension, CKD, celiac disease, GERD, chronic left lower extremity edema, history of right lower extremity DVT in the setting of hip fracture was 0 history of
rib fracture on the right with partial total hip arthroplasty coming into the emergency department following a fall at home.
According to patient and spouse description patient had an excellent PT session. He was an extended session. Patient reported that he did not have breakfast and really did not have any meal prior to the session. Soon afterwards he was ambulating
with a walker when he suddenly felt weakness in his leg and is wanted to have his wheelchair. Prior to the being in the wheelchair the patient had fallen to the floor. He did not strike his head. He denies loss of consciousness. He denied
any palpitations or lightheadedness prior to this. He denies any recent urinary symptoms. He denies any fevers or chills. He tolerated the PT without excessive pain in his legs. He denies any new lower extremity swelling. He denies any rash.
My examination of the legs show significant edema in the left lower extremity which is unchanged. The right lower extremity has no erythema or at the hip. No swelling or protrusion. He has normal sensation. Strength is unchanged from prior.
During the emergency department he was afebrile, blood pressure was 158/70 with a pulse of 72 satting at 92% on room air. CBC shows a white count of 14.8 but otherwise unremarkable. Electrolytes BUN/creatinine were in the usual range and
unchanged. UA was unremarkable. Hip x-ray shows no acute fracture. CT of the head was negative for any acute intracranial process.
Assessment and plan
Acute weakness and fall. No focal deficits on examination. Recent hip fracture with partial replacement. Unlikely syncope but can't rule out given fainting sensation. No acute injury on examination or imaging. Possible fracture injury not seen
on Xray and not amenable to further CT evaluation.
- admit to telemetry observation
- orthostatic vital signs
- MRI in am
- orthopedic consultation
- PT evaluation
continue eliquis for chronic dvt for now, since provoked and tx > 3 months may consider d/c as patient is now more mobile
- continue PPI BID
Continue aspirin and beta blockade. 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
Code status - Full Code
[2024-05-31 22:45] VITALS: BP 162/79; BMI 25.8
[2024-06-01] VITALS (8 sets, daily range): BP systolic 119–135; BP diastolic 58–69; PULSE 85; O2SAT 91
--- NOTE | 2024-06-01 07:59 | CON.ORTHO ---
Consultation
-
Date/Time Consultation Requested: 05/31/2024
Date/Time Consultation Performed: 06/01/2024
Requesting Provider: KAREN Pradhan
Performing Provider: Ofelia Rebolledo PA-C, for Dr. Dallas Luque
Reason for Consultation: Left hip pain after fall
Consultation - Orthopedics
History
HPI: This is a 78 year old male who sustained a witnessed fall onto his left hip yesterday. He has been receiving in home PT for his right hip, following a right hip hemiarthroplasty with Dr. Bourgeois in March. He reports he has been doing very
well, but yesterday went to stand up after sitting for a period of time and felt a weakness in his left leg. He called for his to bring his wheelchair, however, she wasn't able to get it under him in time. He landed on his left hip. He does
have a h/o left hip gamma nail on 07/03/2023 under the direction of Dr. Bourgeois and also has edema in that leg at baseline. He denies any prior weakness in this leg. He states his pain is located in the groin and worse with ambulation and motion.
X-rays were negative for acute fracture. Orthopedics was consulted in to discuss treatment recommendations going forward.
PMH: CAD, CKD, HTP, HLD, GERD, CVA 2018.
PSHx: Left hip gamma nail, Right hip samy, hernia, cataract, left leg stent.
Social history: Denies tobacco or alcohol use. Lives at home with .
Family hx: Non contributory.
ROS: All systems reviewed and negative except for those mentioned in HPI.
Allergies / Home Medications
Allergy/AdvReac Type Severity Reaction Status Date / Time
gluten Allergy Celiac Verified 05/31/24 15:01
disease
�Medication �Instructions �Recorded
aspirin 81 mg tablet,delayed 81 mg PO DAILY 02/13/24
release
escitalopram oxalate 20 mg tablet 20 mg PO DAILY Mental 02/28/24
Health/Anxiety #0 tabs
pantoprazole 40 mg tablet,delayed 40 mg PO BID Gastrointestinal 02/28/24
release issue #60 tabs
apixaban 5 mg tablet (Eliquis) 5 mg PO BID blood clot #1 tab 04/18/24
carvedilol 3.125 mg tablet 3.125 mg PO BID blood pressure #0 04/18/24
tabs
Vital Signs / Lab Results
Temp Pulse Resp BP Pulse Ox
98.2 F 83 16 135/66 91
06/01/24 03:55 06/01/24 03:55 06/01/24 03:55 06/01/24 03:55 06/01/24 03:55
Physical exam:
General: WD/WN in NAD. AAO x 4.
HEENT: AT/NC, neck supple.
Heart: RRR.
Lungs: non labored breathing on room air, no audible wheezing.
Left hip: NTTP. Logroll with pain in groin. Limited IR and ER with groin pain elicited. Diffuse edema about LLE, baseline per patient. N/v intact distally.
Radiographic studies:
X-rays of the left hip without acute fracture. left hip gamma nail in place without evidence of hardware failure. Mild degenerative changes.
Assessment / Plan
Assessment: Left hip pain s/p fall.
Plan: Fortunately, x-rays of Steffen's left hip do not show obvious fracture. MRI is already ordered to be completed this morning. This will further evaluate for occult fracture, pubic rami fracture, or soft tissue pathology. In the meantime, we
will keep him NWB on the LLE. Will provide further recommendations once the imaging is completed. Patient was in agreement with plan going forward.
[2024-06-01 08:34] LABS: Hematocrit 28.3 % (39.0-52.0); Hemoglobin 9.1 g/dL (13.0-18.0); Mean Corp Hgb Conc. 32.2 g/dL (33.0-37.0); Mean Corpuscular Hgb 30.3 pg (27.0-31.0); Mean Corpuscular Volume 94.3 fL (80.0-94.0); Mean Platelet Volume 9.7 fL (7.4-10.4); Platelet Count 264 10^3/uL (130-400); Red Cell Dist. Width 16.6 % (11.5-14.5); White Blood Cell Count 8.7 10^3/uL (4.8-10.8)
[2024-06-01] MEDS: ELIQUIS 5 MG PO ×2 (08:49→20:04)
[2024-06-01] MEDS: PROTONIX 40 MG PO ×2 (08:49→20:04)
[2024-06-01] MEDS: LEXAPRO 20 MG PO (08:49)
[2024-06-01] MEDS: ASPIR LOW (ENTERIC COATED) 81 MG PO (08:49)
[2024-06-01] MEDS: COREG 3.125 MG PO ×2 (08:49→20:04)
[2024-06-01 08:52] LABS: Blood Urea Nitrogen 19 mg/dl (9-20); Calcium 8.8 mg/dl (8.4-10.2); Carbon Dioxide 24 mmol/L (22-30); Chloride 103 mmol/L (98-107); Estimated Creatinine Clearance 60 ml/min; Glucose 108 mg/dl (70-99); Potassium 3.9 mmol/L (3.5-5.1); Sodium 134 mmol/L (135-145); eGFR > 60.00
--- NOTE | 2024-06-01 09:28 | W.PN.HOSP.TC ---
Addendum entered and electronically signed by Deric Monroy MD 06/01/24 09:37:
No Afib, but Hx of LE DVT
Original Note:
Today's Communication/Plan
-
MRI L hip
Assessment / Plan
Assessment / Plan
78yo M with PMHx of Afib on Eliquis, PAD s/p stent, GERD, HTN, Anxiety, R SAHIL 5 weeks ago, fell due to unsteadiness without LOC, found new pain in L hip, XR without Fx, ortho pending L hip MRI results.
A/P:
#Fall, without LOC with subsequent L hip pain
#Hx of R hip arthroplasty 5 weeks ago
XR without Fx
Ortho consult pending MRI L hip
Pain mgmt
PT/OT when able
no ICH hemorrhage on CT
#Chronic anemia
check for deficiencies
Outpatient [facility] eval recommended
#PAD
#Afib, paroxysmal
#GERD
#Anxiety d/o
#chronic b/l LE lymphedema
cont home meds
DVT ppx Eliquis
Full code
I have spent at least 58min reviewing chart, test results, communication with consultantants, family and providing direct patient care
Anticipated Discharge: 24 - 48 hours
Subjective/Interval History
-
Date of Service: June 01, 2024
Objective Data
-
Labs:
Laboratory Results
06/01/24
07:04
WBC 8.7
Hgb 9.1 L
Hct 28.3 L
Plt Count 264
Sodium 134 L
Potassium 3.9
Chloride 103
Carbon Dioxide 24
BUN 19
Creatinine 1.1
Glucose 108 H
Calcium 8.8
Vital Signs:
Vital Signs
Temp Pulse Resp BP Pulse Ox
99.2 F 88 20 126/67 95
06/01/24 06:56 06/01/24 08:49 06/01/24 06:56 06/01/24 08:49 06/01/24 06:56
I&O
05/31/24 06/01/24 06/02/24
06:59 06:59 06:59
Output Total 450 / 450
Balance -450 / -450
Review of Systems
-
History Source: Patient
All other systems: Reviewed and negative
Musculoskeletal: Reports Other (L hip pain)
Physical Exam
-
General: No Apparent Distress
HEENT: Normocephalic
Respiratory: Clear to Auscultation
Cardiac: Regular Rhythm
GI: Soft
Musculoskeletal: Edema, Right Lower Extrem and Edema, Left Lower Extrem
Skin: Warm
Neuro: Awake
[2024-06-01 10:12] LABS: Reticulocyte Count 1.5 % (0.4-2.8)
[2024-06-01 10:41] LABS: Total Iron Binding Capacity 177 ug/dl (261-462)
[2024-06-01 10:50] LABS: Iron < 20 ug/dl (49-181)
[2024-06-01 10:55] LABS: Urine Albumin 2+ (Neg - Trace); Urine Bilirubin Negative (Negative); Urine Character Slightly Cloudy (Clear); Urine Color Yellow; Urine Glucose Negative (Negative); Urine Ketone Negative (Negative); Urine Leukocyte Negative (Negative); Urine Nitrite Negative (Negative); Urine Occult Blood Negative (Negative); Urine Specific Gravity 1.015 (<1.030); Urine Urobilinogen Negative (Neg - 1+); Urine pH 6.5 (5.0-9.0)
[2024-06-01 11:02] LABS: Urine Squamous Cell 0-2 /LPF (Few)
[2024-06-01 11:03] LABS: Urine Bacteria Few (Negative)
[2024-06-01 11:04] LABS: Urine Calcium Oxalate Crystals Present
[2024-06-01 14:05] LABS: Vitamin B12 612 pg/ml (239-931)
[2024-06-01] MEDS: ULTRAM 25 MG PO (14:06)
[2024-06-01 14:12] LABS: Folate 11.8 ng/ml (2.76-20)
[2024-06-01] MEDS: FERRLECIT 110 MG IV (14:54)
--- NOTE | 2024-06-01 16:48 | CM ---
[facility] letter provided to patient, patient lives with spouse in a 2 story home, with first floor set up, patient is independent with adl's and has a walker and w/c with ambulation. Patient has a hospital bed in home, patient was recently discharge
from [facility], patient plans on returning to home when stable. Offered vn patient to discuss with spouse.
PCP: Geneva James
Pharmacy: [facility].
Plan; Home with spouse when stable.
--- NOTE | 2024-06-01 18:05 | W.PN.UPDATE ---
Update Note
Progress Note Update
MRI of left hip demonstrates a left acetabular fracture and inferior pubic rami fracture.
Imaging reviewed with Dr. Bourgeois. Fractures are non surgical at this time.
At this point, recommend PWB on the LLE x 4 weeks with a walker.
Will put in order for PT/OT to help determine discharge recommendations with PWB status.
Repeat x-ray in 4 weeks.
[2024-06-02] VITALS (8 sets, daily range): BP systolic 123–156; BP diastolic 60–70; PULSE 79; O2SAT 93
--- NOTE | 2024-06-02 05:35 | W.PN.ORTHO ---
Today's Communication / Plan
-
Patient was seen this morning on a.m. rounds.
No pain with logroll. Hip range of motion is limited secondary to weakness and mild discomfort anteriorly. Moderate peripheral edema throughout the extremity mild distal redness with skin wrinkles present.
MRI of the left hip shows the nondisplaced acetabular fracture and inferior pubic rami fracture. Recommended for nonoperative treatment
-Patient will be partial weightbearing left lower extremity x 4 weeks with assist device.
-PT/OT/discharge planning
-Recommend repeat radiographs in 4 weeks time to include inlet outlet views as well as Judet a views and AP pelvis and left hip.
Assessment
.
Distal Motor Intact: Yes
Dressing:
Clean, dry and intact.
Plan
.
Activity:
Out of bed.
PT/OT
Subjective
.
.:
Patient resting comfortably.
Vital Signs and Labs
.
Vital Signs and Labs:
Lab Results
06/01/24 07:04
06/01/24 07:04
Temp Pulse Resp BP Pulse Ox
98.1 F 85 18 123/66 92
06/02/24 03:20 06/02/24 03:20 06/02/24 03:20 06/02/24 03:20 06/02/24 03:20
--- NOTE | 2024-06-02 09:36 | W.PN.HOSP.TC ---
Today's Communication/Plan
-
CM for rehab
Assessment / Plan
Assessment / Plan
78yo M with PMHx of Afib on Eliquis, PAD s/p stent, GERD, HTN, Anxiety, R SAHIL 5 weeks ago, fell due to unsteadiness without LOC, found new pain in L hip, XR without Fx, MRI L hip showed fracture line extending transversely across the acetabulum with
a component extending inferiorly through the anterior acetabular fossa consistent with a nondisplaced T-type acetabular fracture. There is a minimally displaced fracture through the left inferior pubic ramus, that ortho will be managed
conservatively with pain meds, partial weight bearing and repeat radiograph in 4weeks. Medcially stable for d/c to rehab - CM notified
A/P:
#Fall, without LOC with subsequent L hip pain
#Hx of R hip arthroplasty 5 weeks ago
XR without Fx
Ortho consult pending MRI L hip
Pain mgmt
PT/OT when able
no ICH hemorrhage on CT
#KATHARINA
check for deficiencies
Outpatient GI eval recommended
#PAD
#Afib, paroxysmal
#GERD
#Anxiety d/o
#chronic b/l LE lymphedema
cont home meds
DVT ppx Eliquis
Full code
I have spent at least 38min reviewing chart, test results, communication with consultantants, family and providing direct patient care
Anticipated Discharge: Within 24 hours
Subjective/Interval History
-
Date of Service: June 02, 2024
Objective Data
-
Vital Signs:
Vital Signs
Temp Pulse Resp BP Pulse Ox
98.1 F 84 20 156/70 98
06/02/24 07:38 06/02/24 07:38 06/02/24 07:38 06/02/24 07:38 06/02/24 07:38
I&O
03/06/02/24 06/03/24
06:59 06:59 06:59
Intake Total 480 / 480
Output Total 1150 / 1150
Balance -670 / -670
Review of Systems
-
History Source: Patient
All other systems: Reviewed and negative
Musculoskeletal: Reports Other (L hip pain)
Physical Exam
-
General: No Apparent Distress
HEENT: Normocephalic
Neuro: Awake, Alert, Oriented and AO x 3
Psych: Calm
--- NOTE | 2024-06-02 09:50 | CM ---
Addendum entered by Destinee Younger 06/02/24 17:16:
Patient has been denied at [facility], skilled recommended and [facility], patient has switched to inpatient.
Original Note:
field operations farm manager reviewed patient's chart and spoke with patient and patient's spouse by phone and patient's spouse insists on [facility] rehab for patient at discharge, referral sent to [facility], will need physiatry evaluation, physician made aware.
Plan; Referral sent to [facility] will await determination from [facility] admissions.
[2024-06-02] MEDS: PROTONIX 40 MG PO ×2 (10:44→21:40)
[2024-06-02] MEDS: ASPIR LOW (ENTERIC COATED) 81 MG PO (10:44)
[2024-06-02] MEDS: LEXAPRO 20 MG PO (10:44)
[2024-06-02] MEDS: ELIQUIS 5 MG PO ×2 (10:46→21:40)
[2024-06-02] MEDS: COREG 3.125 MG PO ×2 (10:46→21:40)
[2024-06-02] MEDS: ULTRAM 25 MG PO (10:46)
--- NOTE | 2024-06-02 13:27 | W.PN.UPDATE ---
Update Note
Progress Note Update
Patient Was seen and examined. MRI was reviewed. Symptoms are unchanged. Agree with orthopedic PA consult note.
Left lower extremity pain with range of motion of the hip. Edema left lower extremity pre-existing. Neurovascularly unchanged.
MRI performed of the left hip shows comminuted fracture of the acetabulum nondisplaced in an anterior aspect. Inferior pubic ramus fracture. No acetabular protrusio. Gamma nail is intact. DJD of the left hip.
Impression left acetabular fracture, left inferior pubic ramus fracture
Plan: Partial weightbearing to the best of his ability of the left lower extremity with a walker and assistance. This is treated nonoperatively. I will see him in 4 weeks for x-rays and to hopefully progress weightbearing status. All questions
were answered. I left a voicemail on his , Goldie, Home number at patient's request.
[2024-06-02] MEDS: FERRLECIT 110 MG IV (15:12)
--- NOTE | 2024-06-02 15:26 | CON.MD ---
Consultation - Medical
-
Referring Provider:�Dr. Deric Monroy
Chief Complaint:�Pelvic/acetabular fracture
�
History of Present Illness:�
78 year old Male with PMH (of ASCVD, hypertension and recent L hip fracture / repair, CKD 3, GERD, Celiac Disease, Cholelithiasis, Lumbar DDD, left ORIF on 07/03/23, inflammatory myopathy, posterior tibial DVT, thrombocytopenia, coccyx pressure
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
behind him. He had been doing physical therapy outside and walking around with no concerns to this point. Unclear why he had the fall. MRI of the left hip demonstrates left acetabular fracture and inferior pubic rami fracture. Seen by
orthopedics Dr. Bourgeois with no surgical intervention at this time. Partial weightbearing for 4 weeks with a walker and follow-up with repeat x-rays in 4 weeks. Overall patient has significant amount of pain but otherwise feeling okay. No other
injuries from the fall noted.
�
Past Medical History:��ASCVD, hypertension and recent L hip fracture / repair, CKD 3, GERD, Celiac Disease, Cholelithiasis, Lumbar DDD, left ORIF on 07/03/23, inflammatory myopathy, right hip surgery, posterior tibial DVT, thrombocytopenia, coccyx
pressure injury, depression, CVA 2018, CAD)
Procedure History:��Left hip ORIF 06/2023, Left Iliac Vein Stenting, Hernia Repairs, Cataracts, Eye Surgery (in childhood), ERCP with perforation repair, 04/03/24-right hip or OSH, conversion to right total hip hemiarthroplasty
Family History:��CAD�������������
�
Social History:��
Functional Level Premorbidly:�Requires assistance for ADLs, ambulating with walker
Functional level Currently: Mod assist of 2 for bed mobility, max assist for transfers
�
Allergies:�
Allergy/AdvReac Type Severity Reaction Status Date / Time
gluten Allergy Celiac Verified 05/31/24 15:01
disease
�
Review of Systems:�
Constitutional: (x) Normal _
Eye: (x) Normal _
Ear/Nose/Throat: (x) Normal _
Respiratory: (x) Normal _
Cardiovascular: (x) Normal _
Gastrointestinal: (x) Normal _
Genitourinary: (x) Normal _
Musculoskeletal: (x) Normal _
Integumentary: (x) Normal _
Neurologic: (x) Normal _
Psychiatric: (x) Normal _
Endocrine: (x) Normal _
Hematologic/Lymphatic: (x) Normal _
Allergic/Immunologic: (x) Normal _
�
Medications:�
Active Current Visit Medication List
Category Date Time Status
Acetaminophen [Tylenol] Med 05/31/24 22:40 Active
650 mg PO Q4HPRN PRN
Apixaban [Eliquis] Med 06/01/24 08:00 Active
5 mg PO BID
Aspirin Low Dose EC [Aspir Low (Enteric Coated)] Med 06/01/24 08:00 Active
81 mg PO DAILY
Carvedilol [Coreg] Med 06/01/24 08:00 Active
3.125 mg PO BID
Escitalopram Oxalate [Lexapro] Med 06/01/24 08:00 Active
20 mg PO DAILY
Ferric Gluconate [Ferrlecit] 125 mg Med 06/01/24 14:00 Active
0.9% Sodium Chloride 100 ml [Nss] 100 ml
IV DAILY@1400
Morphine Sulfate Med 06/02/24 15:30 Active
2 mg IV Q4HPRN PRN
Pantoprazole [Protonix] Med 06/01/24 08:00 Active
40 mg PO BID
Tramadol HCl [Ultram] Med 06/02/24 15:31 Active
25 mg PO Q6HPRN PRN
�
Vitals:�
Temp Pulse Resp BP Pulse Ox
97.9 F 78 12 154/68 89
06/02/24 11:00 06/02/24 11:00 06/02/24 11:00 06/02/24 11:00 06/02/24 11:00
Height 5 ft 11.5 in
Actual Weight 88.706 kg
Body Mass Index (BMI) 25.8
�
Physical Exam:�
General Appearance/Observation: Well-developed, well-nourished male in no apparent distress.��
Pain/Comfort Assessment: Pelvic area more on the left
Mood/Affect: Appropriate
�
Integumentary/Operative Site: Bruising in bilateral upper lower extremities
���
Eyes: Conjunctiva/Lids: normal���� Pupils: pupils equal round
Cardiovascular: Heart: regular, no murmur��
Pulses: dorsalis pedis 1+ right, difficult to palpate due to edema on the left
Respiratory: Respiratory Effort/Chest Expansion: normal.�������Auscultation: Clear to auscultation bilaterally��
Gastrointestinal: abdomen not tender, no distension, normal abdominal bowel sounds
Genitourinary: No Villareal��
Extremities:�Edema: moderate to severe edema left leg, mild edema right leg cyanosis: None�Trophic�changes: Left leg
Neurology Exam:
Orientation: Alert, Oriented to self, Time, Place��
Memory: Intact for immediate medical concerns
Comprehension: Intact
Two step command: Intact
Cranial Nerves:
�� CN VII:�Facial movement: Symmetric
�� CN VIII:�Hearing: Normal
�� CN IX/X:�Speech & swallow: Slightly low volume�
Sensory:
�� Light touch: Intact in bilateral upper and lower extremities
Musculoskeletal: Motor: (Manual muscle scale 0-5)��
Muscle SA EF WE EE FF FA HF KE DF EHL PF
Right� 4 5 5 5 5 1* 3* 5 4 5
Left 4 5 5 5 5 1* 2* 5 4 5
�*pain limited
Tone: Normal in all extremities
�
Lab Results
Laboratory Data
06/01/24 07:04
06/01/24 07:04
Total Bilirubin 0.6 mg/dl (0.2-1.3) 05/31/24 15:14
AST 25 U/L (17-59) 05/31/24 15:14
ALT 15 U/L (0-50) 05/31/24 15:14
Alkaline Phosphatase 104 U/L (38-126) 05/31/24 15:14
Total Protein 6.1 g/dl (6.3-8.2) L 05/31/24 15:14
Albumin 3.1 g/dl (3.5-5.0) L 05/31/24 15:14
�
Diagnostic Results:�as per HPI�
�
Assessment
78-year-old male with PMH (ASCVD, hypertension and L hip ORIF/ repair, CKD 3, GERD, Celiac Disease, Cholelithiasis, Lumbar DDD, inflammatory myopathy, right total hip replacement, posterior tibial DVT, thrombocytopenia, coccyx pressure injury,
depression, CVA 2018, CAD) with 05/31/2024 fall resulting in left acetabular and Inferior pubic rami fracture.
Plan�
PM&R�PT/OT to increase independence with ADLs, improve balance, coordination, endurance, strength, mobility, community reintegration, decreased burden of care on others and family education.�
�
Left acetabular and inferior pubic rami fracture status post fall: Nonoperative
-Partial weightbearing for 4 weeks until following up with orthopedics, pain control
HTN: Carvedilol 3.125 mg twice daily.
HLD: not on statin with statin myopathy concern.
Orthostatic hypotension: Monitor for orthostasis, avoid hydralazine
ASCVD- Home med regimen ASA 81mg daily. Not on statin with statin myopathy concern.
CKD III: monitor. Avoid nephrotoxins
Chronic Cholelithiasis / Choledocholithiasis: Noted
Bilateral lower extremity edema: Patient has lymphedema garment from home.
Anemia: Has been in the 9 range recently
Hyponatremia: Has had in the past, doing better at 134
Inflammatory myopathy. 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 Some mild improvements with steroids/
-Statin induced is likely with positive HMGCR antibody IgG, off statin. Had been on prednisone 5 mg previously, unclear who took him off of it.
Psych: Psychology consult.�Lexapro 20mg qd
Skin: monitor for pressure sores/rashes/lesions.��
FEN:�Regular diet.
Pain: acetaminophen or tramadol as needed.��May need to increase the dose to 50 or 100 mg.
Bowel: Colace and Senna, PRN bisacodyl.��
Bladder/ BPH/Nocturia: Monitor, check bladder scan
GI Prophylaxis: Pantoprazole��40mg qd
DVT Prophylaxis/DVT/IVC placement: Eliquis
Pulmonary: Incentive spirometry��
Safety: Continue to reinforce assistance with all transfers.��
Code Status:� Full code
Dispo�(date/plan/equipment needs): Home with family care.��
Discharge Destination:�Given his history with weakness and difficulties with mobility now with pelvic fracture pain and partial weightbearing in the leg he would be best suited to go to a fdc facility.� Discussed this at length with
patient and separately with his .
Summary of recommendations:
-�Discharge Destination:�[facility] facility
Inflammatory myopathy: Statin induced is likely with positive HMGCR antibody IgG, off statin. Had been on prednisone 5 mg previously, unclear who took him off of it.
Bilateral lower extremity edema: Patient has lymphedema garment from home.
Anemia: Has been in the 9 range recently
Hyponatremia: Has had in the past, doing better at 134
Thank you for allowing me to care for your patient. Please contact me with any questions or concerns.
--- NOTE | 2024-06-02 15:32 | W.PN.UPDATE ---
Update Note
Progress Note Update
Poor pain control with tramadol - add Morphine for severe pain
[2024-06-03] VITALS (7 sets, daily range): BP systolic 120–154; BP diastolic 49–68; PULSE 79
[2024-06-03] MEDS: COREG 3.125 MG PO ×2 (07:59→19:35)
[2024-06-03] MEDS: ASPIR LOW (ENTERIC COATED) 81 MG PO (08:02)
[2024-06-03] MEDS: PROTONIX 40 MG PO ×2 (08:02→19:35)
[2024-06-03] MEDS: ELIQUIS 5 MG PO ×2 (08:02→19:35)
[2024-06-03] MEDS: LEXAPRO 20 MG PO (08:02)
--- NOTE | 2024-06-03 08:23 | W.PN.UPDATE ---
Update Note
Progress Note Update
Mr. Soriano is resting comfortably this morning, and denies any pain in the hip at rest. He has no questions or concerns this morning.
Directed exam of the left lower extremity reveals moderate edema throughout the left leg. No tenderness to palpation about the hip. Thigh soft and compressible. Negative logroll. Mild pain with passive hip ROM. Calf soft and nontender. Patient able
to wiggle toes, plantar and dorsiflex ankle. NVID.
Left acetabular and inferior pubic ramus fracture
--Partial weight bearing to LLE. Assistive device. We appreciate the assistance of PT/OT.
--Pain control prn. Ice and elevation for edema control.
--Case management consult for dc planning. D/c once deemed stable by medicine and PT.
--Recommend repeat radiographs in 4 weeks time to include inlet outlet views as well as Judet a views and AP pelvis and left hip.
--- NOTE | 2024-06-03 10:27 | W.PN.HOSP.TC ---
Today's Communication/Plan
-
pain improving, will try to wean off IV meds
Assessment / Plan
Assessment / Plan
78yo M with PMHx of Afib on Eliquis, PAD s/p stent, GERD, HTN, Anxiety, R SAHIL 5 weeks ago, fell due to unsteadiness without LOC, found new pain in L hip, XR without Fx, MRI L hip showed fracture line extending transversely across the acetabulum with
a component extending inferiorly through the anterior acetabular fossa consistent with a nondisplaced T-type acetabular fracture. There is a minimally displaced fracture through the left inferior pubic ramus, that ortho will be managed
conservatively with pain meds, partial weight bearing and repeat radiograph in 4weeks. Medcially stable for d/c to rehab - CM notified
A/P:
#Fall, without LOC with subsequent L hip pain
#Hx of R hip arthroplasty 5 weeks ago
XR without Fx
Ortho consult pending MRI L hip
Pain mgmt
PT/OT when able
no ICH hemorrhage on CT
#KATHARINA
check for deficiencies
Outpatient GI eval recommended
#PAD
#Afib, paroxysmal
#GERD
#Anxiety d/o
#chronic b/l LE lymphedema
cont home meds
DVT ppx Eliquis
Full code
I have spent at least 38min reviewing chart, test results, communication with consultantants, family and providing direct patient care
Anticipated Discharge: 24 - 48 hours
Subjective/Interval History
-
Date of Service: June 03, 2024
Objective Data
-
Vital Signs:
Vital Signs
Temp Pulse Resp BP Pulse Ox
97.8 F 86 18 154/65 93
06/03/24 07:30 06/03/24 07:59 06/03/24 07:30 06/03/24 07:59 06/03/24 07:30
I&O
06/02/24 06/03/24 06/04/24
06:59 06:59 06:59
Intake Total 480 / 480 720 / 720
Output Total 1150 / 1150 600 / 600
Balance -670 / -670 120 / 120
Review of Systems
-
History Source: Patient
All other systems: Reviewed and negative
Physical Exam
-
General: No Apparent Distress
HEENT: Normocephalic
Respiratory: Clear to Auscultation
GI: Soft, Nontender and Nondistended
Musculoskeletal: No Clubbing, No Cyanosis and No Edema
Neuro: Awake, Alert, Oriented and AO x 3
Psych: Calm
[2024-06-03] MEDS: FERRLECIT 110 MG IV (13:31)
[2024-06-03] MEDS: TYLENOL 650 MG PO (19:35)
[2024-06-04] VITALS (7 sets, daily range): BP systolic 99–150; BP diastolic 55–70; PULSE 72–84; O2SAT 98
[2024-06-04] MEDS: PROTONIX 40 MG PO ×2 (08:04→20:18)
[2024-06-04] MEDS: COREG 3.125 MG PO ×2 (08:04→20:18)
[2024-06-04] MEDS: ELIQUIS 5 MG PO ×2 (08:04→20:18)
[2024-06-04] MEDS: ASPIR LOW (ENTERIC COATED) 81 MG PO (08:04)
[2024-06-04] MEDS: LEXAPRO 20 MG PO (08:04)
[2024-06-04] MEDS: TYLENOL 650 MG PO (08:05)
--- NOTE | 2024-06-04 09:56 | W.PN.HOSP.TC ---
Today's Communication/Plan
-
medically stable for rehab
Assessment / Plan
Assessment / Plan
78yo M with PMHx of Afib on Eliquis, PAD s/p stent, GERD, HTN, Anxiety, R SAHIL 5 weeks ago, fell due to unsteadiness without LOC, found new pain in L hip, XR without Fx, MRI L hip showed fracture line extending transversely across the acetabulum with
a component extending inferiorly through the anterior acetabular fossa consistent with a nondisplaced T-type acetabular fracture. There is a minimally displaced fracture through the left inferior pubic ramus, that ortho will be managed
conservatively with pain meds, partial weight bearing and repeat radiograph in 4weeks. Medcially stable for d/c to rehab - CM notified
A/P:
#Fall, without LOC with subsequent L hip pain
#Hx of R hip arthroplasty 5 weeks ago
XR without Fx
Ortho consult pending MRI L hip
Pain mgmt
PT/OT when able
no ICH hemorrhage on CT
#KATHARINA
check for deficiencies
Outpatient GI eval recommended
#PAD
#Afib, paroxysmal
#GERD
#Anxiety d/o
#chronic b/l LE lymphedema
cont home meds
DVT ppx Eliquis
Full code
I have spent at least 38min reviewing chart, test results, communication with consultantants, family and providing direct patient care
Anticipated Discharge: Within 24 hours
Subjective/Interval History
-
Date of Service: June 04, 2024
Objective Data
-
Vital Signs:
Vital Signs
Temp Pulse Resp BP Pulse Ox
98.4 F 72 18 136/68 92
06/04/24 07:41 06/04/24 08:04 06/04/24 07:41 06/04/24 08:04 06/04/24 07:41
I&O
0306/04/24 06/05/24
06:59 06:59 06:59
Intake Total 720 / 720 580 / 580
Output Total 600 / 600 700 / 700
Balance 120 / 120 -120 / -120
Review of Systems
-
History Source: Patient
All other systems: Reviewed and negative
Physical Exam
-
General: No Apparent Distress
HEENT: Normocephalic
Neuro: Awake, Alert, Oriented and AO x 3
Psych: Calm
--- NOTE | 2024-06-04 12:11 | CM ---
Chart reviewed and referrals sent for skilled placement, per admissions at [facility] they may have a bed for patient on Wednesday, patient case coordinator will need to call admissions on Wednesday to check on bed for patient.
Plan; Hopefully skilled placement at [facility].
[2024-06-04] MEDS: FERRLECIT 110 MG IV (15:04)
[2024-06-04 17:51] LABS: Glucose - Point of Care 112 mg/dl (70-99)
[2024-06-05 02:59] VITALS: BP 126/59
[2024-06-05 07:44] VITALS: BP 128/64
[2024-06-05] MEDS: PROTONIX 40 MG PO (08:35)
[2024-06-05] MEDS: LEXAPRO 20 MG PO (08:35)
[2024-06-05] MEDS: COREG 3.125 MG PO (08:35)
[2024-06-05] MEDS: ASPIR LOW (ENTERIC COATED) 81 MG PO (08:35)
[2024-06-05] MEDS: ELIQUIS 5 MG PO (08:35)
--- NOTE | 2024-06-05 09:36 | W.PN.HOSP.TC ---
Today's Communication/Plan
-
Medically stable for d/c to rehab
Assessment / Plan
Assessment / Plan
78yo M with PMHx of Afib on Eliquis, PAD s/p stent, GERD, HTN, Anxiety, R SAHIL 5 weeks ago, fell due to unsteadiness without LOC, found new pain in L hip, XR without Fx, MRI L hip showed fracture line extending transversely across the acetabulum with
a component extending inferiorly through the anterior acetabular fossa consistent with a nondisplaced T-type acetabular fracture. There is a minimally displaced fracture through the left inferior pubic ramus, that ortho will be managed
conservatively with pain meds, partial weight bearing and repeat radiograph in 4weeks. Medcially stable for d/c to rehab - CM notified
A/P:
#Fall, without LOC with subsequent L hip pain
#Hx of R hip arthroplasty 5 weeks ago
XR without Fx
Ortho consult pending MRI L hip
Pain mgmt
PT/OT when able
no ICH hemorrhage on CT
#KATHARINA
check for deficiencies
Outpatient GI eval recommended
#PAD
#Afib, paroxysmal
#GERD
#Anxiety d/o
#chronic b/l LE lymphedema
cont home meds
DVT ppx Eliquis
Full code
I have spent at least 38min reviewing chart, test results, communication with consultantants, family and providing direct patient care
Anticipated Discharge: Within 24 hours
Subjective/Interval History
-
Date of Service: June 05, 2024
Objective Data
-
Vital Signs:
Vital Signs
Temp Pulse Resp BP Pulse Ox
98.6 F 82 20 128/64 96
06/05/24 07:44 06/05/24 08:35 06/05/24 07:44 06/05/24 08:35 06/05/24 08:30
I&O
06/04/24 06/05/24 06/06/24
06:59 06:59 06:59
Intake Total 580 / 580 480 / 480
Output Total 700 / 700 350 / 350
Balance -120 / -120 130 / 130
Physical Exam
-
General: Well Developed, Well Nourished and No Apparent Distress
Neuro: Awake, Alert, Oriented and AO x 3
Psych: Calm
--- NOTE | 2024-06-05 10:02 | CM ---
Addendum entered by Karlee Marc 06/05/24 15:36:
[facility]
Addendum entered by Karlee Marc 06/05/24 11:30:
Spouse and facility aware of 4 pm product picker time.
Original Note:
TC from [facility] from [facility] [place], bed available for today after 4 pm.
Spouse updated and agreeable to [facility] [place] [facility].
MD updated, Covid test to be completed.
IMM reviewed.
Patient will require ambulance transport.
Plan: [facility]
Report# [phone]
--- NOTE | 2024-06-05 10:04 | W.DCSUMMARY ---
Discharge Summary
Discharge Data
Date of Admission: 06/02/24
Date of Discharge: 06/05/24
-
Pending Results: No
Hospital Course
78yo M with PMHx of Afib on Eliquis, PAD s/p stent, GERD, HTN, Anxiety, R SAHIL 5 weeks ago, fell due to unsteadiness without LOC, found new pain in L hip, XR without Fx, MRI L hip showed fracture line extending transversely across the acetabulum with
a component extending inferiorly through the anterior acetabular fossa consistent with a nondisplaced T-type acetabular fracture. There is a minimally displaced fracture through the left inferior pubic ramus, that ortho will be managed
conservatively with pain meds, partial weight bearing and repeat radiograph in 4weeks. Medcially stable for d/c to rehab. Outpatient GI referral due to KATHARINA also advised
I have spent at least 38min reviewing chart, test results, communication with consultantants, family and providing direct patient care
PAtient was managed for:
#Fall, without LOC with subsequent L hip fracture
#Hx of R hip arthroplasty 5 weeks ago
#KATHARINA
#PAD
#Afib, paroxysmal
#GERD
#Anxiety d/o
#chronic b/l LE lymphedema
Discharge Plan
-
Patient Disposition: Assisted/SNF
Discharge Diagnosis/Procedures: L hip
Diet: Low Sodium
Activity Restrictions/Additional Instructions:
Partial weight bearing to LLE. Assistive device.
Referrals:
Myriam Bourgeois I., DO [Active] - in three to four weeks (to repeat XR)
Geneva James MD [Family Provider] - in two to four weeks (referral for gastroenterology for colonoscopy since iron deficiency anemia found)
Prescriptions:
New
acetaminophen 325 mg Tablet
650 mg PO Q4HPRN PRN (Reason: mild pain/ROSALES/temp> 100.4F) Qty: 90 0RF
ferrous sulfate [Feosol] 325 mg (65 mg iron) tablet
325 mg PO DAILY Qty: 30 0RF
Continued
aspirin 81 mg Tablet,Delayed Release (Dr/Ec)
81 mg PO DAILY
pantoprazole 40 mg Tablet,Delayed Release (Dr/Ec)
40 mg PO BID Qty: 60 0RF
escitalopram oxalate 20 mg Tablet
20 mg PO DAILY Qty: 0 0RF
carvedilol 3.125 mg Tablet
3.125 mg PO BID Qty: 0 0RF
Eliquis 5 mg Tablet
5 mg PO BID Qty: 1 0RF
Discharge Orders:
Discharge Patient (As Directed); Ordered 06/05/24
Ordered By: Deric Monroy
Discharge Date and Time
Print Language: KAZAKH
[2024-06-05 11:45] LABS: COVID-19 Antigen Negative (Negative)
[2024-06-05 11:56] VITALS: BP 119/61
[2024-06-05 12:00] VITALS: BP 119/61; BP 99/57; PULSE 77; PULSE 89
[2024-06-05] MEDS: ULTRAM 25 MG PO (13:16)
[2024-06-05] MEDS: FERRLECIT 110 MG IV (14:32)
[2024-06-05 15:18] VITALS: BP 111/63
--- NOTE | 2024-06-05 17:00 | PTCARENOTE ---
Pt AAO x3, CHAMBERS slowly; OOB to chair with assist x2 walker; pt hesitant to move BLE; has PWB LLE. VSS. On room air- pulse ox 97%, no SOB noted. Abd large, soft, pérez PO; appetite fair. Voids small amts clear yellow urine in urinal. Resting in
chair at present; awaiting DC to [facility].
== END 2024-06-05 17:25 | DRG 535 ==
LOC: 4 EAST ACU 16:19
PROVIDERS: Nurse Practitioner Family; ADMITTING PHYSICIAN Internal Medicine; ATTENDING PHYSICIAN Internal Medicine; CONSULT PHYSICIAN Orthopaedic Surgery Hand Surgery; CONSULT PHYSICIAN Physical Medicine & Rehabilitation; EMERGENCY PHYSICIAN Emergency Medicine; FAMILY PHYSICIAN Student in an Organized Health Care Education/Training Program
DX: S32.592A Other specified fracture of left pubis, initial encounter for closed fracture (principal); S32.455A Nondisplaced transverse fracture of left acetabulum, initial encounter for closed fracture; I25.10 Atherosclerotic heart disease of native coronary artery without angina pectoris; K21.9 Gastro-esophageal reflux disease without esophagitis; I12.9 Hypertensive chronic kidney disease with stage 1 through stage 4 chronic kidney disease, or unspecified chronic kidney disease; N18.30 Chronic kidney disease, stage 3 unspecified; E78.00 Pure hypercholesterolemia, unspecified; E55.9 Vitamin D deficiency, unspecified; E53.8 Deficiency of other specified B group vitamins; F41.9 Anxiety disorder, unspecified; I48.0 Paroxysmal atrial fibrillation; I89.0 Lymphedema, not elsewhere classified; D50.9 Iron deficiency anemia, unspecified; I73.9 Peripheral vascular disease, unspecified; I95.1 Orthostatic hypotension; W01.198A Fall on same level from slipping, tripping and stumbling with subsequent striking against other object, initial encounter; Z79.82 Long term (current) use of aspirin; Z79.01 Long term (current) use of anticoagulants; Z79.899 Other long term (current) drug therapy; Z96.641 Presence of right artificial hip joint; Z86.73 Personal history of transient ischemic attack (TIA), and cerebral infarction without residual deficits; Z86.718 Personal history of other venous thrombosis and embolism; Z11.52 Encounter for screening for COVID-19
CPT/HCPCS: 36415; 70450; 73502; 73721; 80048; 80053; 81003; 81015; 82550; 82607; 82728; 82746; 82962; 83540; 83550; 84484; 85025; 85027; 85045; 85652; 86140; 87811; 93005; 97116; 97163; 97167; 97530; 97535; 99285; J2916

== ENCOUNTER → 2024-07-19 14:53 | Outpatient (REF) | payer MEDICARE, OTHER, SELFPAY | LOC: HWRAD 14:53 | PROVIDERS: ATTENDING PHYSICIAN Student in an Organized Health Care Education/Training Program | DX: M79.89 Other specified soft tissue disorders (principal); R22.42 Localized swelling, mass and lump, left lower limb | CPT/HCPCS: 93970 ==

== ENCOUNTER → 2024-08-11 13:02 | Outpatient (REF) | payer MEDICARE, OTHER, SELFPAY | LOC: RAD 13:02 | PROVIDERS: ATTENDING PHYSICIAN Student in an Organized Health Care Education/Training Program | DX: M85.89 Other specified disorders of bone density and structure, multiple sites (principal) | CPT/HCPCS: 77080 ==

== ENCOUNTER → 2024-11-07 09:58 | Outpatient (REF) | payer MEDICARE, OTHER, SELFPAY ==
[2024-11-07 11:00] LABS: INR 1.46; PT 18.0 Sec (11.4-14.6)
[2024-11-07 11:01] VITALS: BP 150/68; BP_SYST 60
[2024-11-07 12:25] LABS: Blood Urea Nitrogen 24 mg/dl (9-20); Calcium 8.9 mg/dl (8.4-10.2); Carbon Dioxide 30 mmol/L (22-30); Chloride 106 mmol/L (98-107); Glucose 92 mg/dl (70-99); Potassium 4.7 mmol/L (3.5-5.1); Sodium 139 mmol/L (135-145); eGFR 56.23
[2024-11-07 12:40] VITALS: BP 140/71
[2024-11-07 12:55] VITALS: BP 134/59
[2024-11-07 13:19] VITALS: BP 140/64
== END ==
LOC: RADI 09:58
PROVIDERS: ATTENDING PHYSICIAN Student in an Organized Health Care Education/Training Program
DX: Z46.89 Encounter for fitting and adjustment of other specified devices (principal); Z86.718 Personal history of other venous thrombosis and embolism
CPT/HCPCS: 36415; 37193; 80048; 85610; 99152; 99153

== ENCOUNTER → 2024-12-08 10:57 | Outpatient (REF) | payer MEDICARE, OTHER, SELFPAY ==
[2024-12-08 11:43] LABS: Hematocrit 33.0 % (39.0-52.0); Hemoglobin 11.0 g/dL (13.0-18.0); Mean Corp Hgb Conc. 33.3 g/dL (33.0-37.0); Mean Corpuscular Volume 93.5 fL (80.0-94.0); Nucleated Red Blood Cells % 0 % (-); Platelet Count 232 10^3/uL (130-400); Red Cell Dist. Width 15.7 % (11.5-14.5)
[2024-12-08 12:15] LABS: ALT (SGPT) 10 U/L (0-50); AST (SGOT) 18 U/L (17-59); Albumin 3.3 g/dl (3.5-5.0); Alkaline Phosphatase 90 U/L (38-126); Blood Urea Nitrogen 22 mg/dl (9-20); Calcium 8.7 mg/dl (8.4-10.2); Carbon Dioxide 20 mmol/L (22-30); Chloride 102 mmol/L (98-107); Glucose 111 mg/dl (70-99); HDL Cholesterol 37 mg/dl; Iron 21 ug/dl (49-181); LDL Cholesterol, Calculated 133 mg/dl; Potassium 4.3 mmol/L (3.5-5.1); Sodium 132 mmol/L (135-145); Total Protein 6.2 g/dl (6.3-8.2); Very Low Density Lipoprotein 21 mg/dl (0-30); eGFR 51.13
[2024-12-08 12:25] LABS: Total Iron Binding Capacity 198 ug/dl (261-462)
[2024-12-08 12:27] LABS: Vitamin D, 25-OH*** 27.0 ng/mL (30-80)
[2024-12-08 12:45] LABS: Ferritin 134.0 ng/ml (17.9-464.0)
[2024-12-08 13:00] LABS: Vitamin B12 845 pg/ml (239-931)
== END ==
LOC: REG 10:57
PROVIDERS: ATTENDING PHYSICIAN Student in an Organized Health Care Education/Training Program
DX: I89.0 Lymphedema, not elsewhere classified (principal); D64.9 Anemia, unspecified; E78.2 Mixed hyperlipidemia; M85.80 Other specified disorders of bone density and structure, unspecified site; D51.9 Vitamin B12 deficiency anemia, unspecified
CPT/HCPCS: 36415; 80053; 80061; 82306; 82607; 82728; 83540; 83550; 84443; 85025

== ENCOUNTER → 2025-01-29 09:13 | Outpatient (REF) | payer MEDICARE, OTHER, SELFPAY ==
[2025-01-29 10:45] LABS: Hematocrit 37.0 % (39.0-52.0); Hemoglobin 11.9 g/dL (13.0-18.0); Mean Corp Hgb Conc. 32.2 g/dL (33.0-37.0); Mean Corpuscular Volume 97.9 fL (80.0-94.0); Nucleated Red Blood Cells % 0 % (-); Platelet Count 230 10^3/uL (130-400); Red Cell Dist. Width 16.2 % (11.5-14.5)
[2025-01-29 12:04] LABS: Iron 68 ug/dl (49-181)
[2025-01-29 12:13] LABS: Total Iron Binding Capacity 224 ug/dl (261-462)
[2025-01-29 12:29] LABS: Ferritin 45.5 ng/ml (17.9-464.0)
== END ==
LOC: REG 09:13
PROVIDERS: ATTENDING PHYSICIAN Student in an Organized Health Care Education/Training Program
DX: D50.8 Other iron deficiency anemias (principal)
CPT/HCPCS: 36415; 82728; 83540; 83550; 85025

== ENCOUNTER → 2025-02-23 10:07 | Outpatient (REF) | payer MEDICARE, OTHER, SELFPAY | LOC: RAD 10:07 | PROVIDERS: ATTENDING PHYSICIAN Surgery Vascular Surgery; FAMILY PHYSICIAN Student in an Organized Health Care Education/Training Program | DX: M79.89 Other specified soft tissue disorders (principal); R60.0 Localized edema | CPT/HCPCS: 93970; 93978 ==

== ENCOUNTER → 2025-02-28 09:05 | Outpatient (REF) | payer MEDICARE, OTHER, SELFPAY | LOC: RAD 09:05 | PROVIDERS: ATTENDING PHYSICIAN Surgery Vascular Surgery; FAMILY PHYSICIAN Student in an Organized Health Care Education/Training Program | DX: M79.89 Other specified soft tissue disorders (principal); R60.0 Localized edema; I77.79 Dissection of other specified artery; I65.23 Occlusion and stenosis of bilateral carotid arteries | CPT/HCPCS: 74174; 93880; Q9967 ==